=== PATIENT | female | born 1960 ===

== ENCOUNTER 2017-08-20 18:34 | Inpatient (IN) | payer OTHER ==
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
[2017-08-20] MEDS ORDERED: Oxycodone/Acetaminophen 5/325 mg Tab PO STA (18:56)
[2017-08-20 19:39] LABS: BASO # 0.02 K/mm3 (0.0-2.0); BASO % 0.2 % (0.0-3.0); EOS % 0.1 % (1.5-5.0); GRAN # 7.79 (1.4-6.5); GRAN % 69.8 % (50.0-68.0); HEMOGLOBIN 16.3 g/dL (12.0-16.0); LYMPH # 2.2 (1.2-3.4); LYMPH % 19.9 % (22.0-35.0); MEAN CORPUSCULAR HEMOGLOBIN 35.8 pg (25.0-35.0); MEAN CORPUSCULAR HGB CONC 35.8 g/dl (31.0-37.0); MEAN PLATELET VOLUME 9.7 fl (7.0-11.0); MONO # 1.1 (0.1-0.6); RBC 4.55 10^6/uL (3.5-6.1); RED CELL DISTRIBUTION WIDTH 13.7 % (11.5-14.5); WHITE BLOOD COUNT 11.2 10^3/ul (4.5-11.0)
[2017-08-20 20:24] LABS: ALB/GLOB RATIO 1.1 (1.1-1.8); ALBUMIN 3.9 g/dL (3.0-4.8); ALT/SGPT 63 U/L (7-56); AST/SGOT 69 U/L (14-36); BLOOD UREA NITROGEN 13 mg/dL (7-21); CALCIUM 8.8 mg/dL (8.4-10.5); GFR AFRICAN-AMERICAN > 60; GFR NON-AFRICAN AMERICAN > 60
[2017-08-20 20:54] VITALS: BMI 19.9
[2017-08-20 20:56] LABS: PARTIAL THROMBOPLASTIN TIME 28.2 Seconds (25.1-36.5)
[2017-08-20] MEDS ORDERED: Iohexol 350 MG/100 ML VIAL ONE (21:46)
[2017-08-20] MEDS ORDERED: Sodium Chloride 0.9% 500 ML IV STA (22:11)
[2017-08-20 22:55] LABS: TROPONIN I 0.03 ng/mL
--- NOTE | 2017-08-20 23:55 | CT ---
EXAM: CT Angiography Chest With Intravenous Contrast EXAM DATE/TIME: 08/20/2017 9:42 PM CLINICAL HISTORY: 57 years old, female; Signs and symptoms; Tachypnea; Patient HX: SOB; Additional info: +dvt, tachycardic TECHNIQUE: Axial computed tomographic angiography images of the chest with intravenous contrast using pulmonary embolism protocol. All CT scans at this facility use one or more dose reduction techniques, viz.: automated exposure control; ma/kV adjustment per patient size (including targeted exams where dose is matched to indication; i.e. head); or iterative reconstruction technique. MIP reconstructed images were created and reviewed. Coronal and sagittal reformatted images were created and reviewed. CONTRAST: 100 mL of omni administered intravenously. COMPARISON: No relevant prior studies available. FINDINGS: Pulmonary arteries: There are emboli in branches of the right pulmonary artery supplying the upper lobe (series 2 images 89-98) and the lower lobe ( images 140, 157 - 166). There is a small pleural-based area of consolidation in the right lower lung that could be atelectatic although infarction would also be possible given the presence of emboli. No left-sided emboli. Aorta: No acute findings. No thoracic aortic aneurysm. Lungs: Symmetric areas of consolidation are present in the mid lungs probably atelectatic. Small nonspecific faint groundglass opacities are present in the lower lungs. Pleural space: Unremarkable. No significant effusion. No pneumothorax. Heart: Unremarkable. No cardiomegaly. No significant pericardial effusion. No evidence of RV dysfunction. Bones/joints: No acute fracture. No dislocation. Soft tissues: Unremarkable. Lymph nodes: Unremarkable. No enlarged lymph nodes. Adrenals: There is a 1.5 cm hypoattenuating right adrenal lesion probable adenoma. IMPRESSION: Right sided pulmonary emboli as above.
[2017-08-21] MEDS: Heparin25000 units/250ml 1/2NS 25,000 UNITS/250 ML BAG IV SCH (00:39)
[2017-08-21] MEDS ORDERED: Oxycodone/Acetaminophen 5/325 mg Tab PO STA (01:23)
[2017-08-21] MEDS ORDERED: Albuterol-Ipratrop 3 mg / 0.5 (3 ml) UD IH PRN (01:35)
[2017-08-21] MEDS ORDERED: Sodium Chloride 0.9% 500 ML IV STA (01:35)
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
[2017-08-21] MEDS: Sodium Chloride 0.9% 1,000 ML IV SCH (04:07)
[2017-08-21] MEDS: Pantoprazole 40 mg EC Tab PO SCH (05:12)
[2017-08-21 05:47] LABS: BASO # 0.02 K/mm3 (0.0-2.0); BASO % 0.3 % (0.0-3.0); EOS # 0.1 (0.0-0.7); EOS % 1.1 % (1.5-5.0); GRAN # 3.03 (1.4-6.5); GRAN % 41.7 % (50.0-68.0); LYMPH # 3.4 (1.2-3.4); LYMPH % 46.6 % (22.0-35.0); MEAN CORPUSCULAR HEMOGLOBIN 34.6 pg (25.0-35.0); MEAN CORPUSCULAR HGB CONC 34.6 g/dl (31.0-37.0); MEAN PLATELET VOLUME 9.5 fl (7.0-11.0); MONO # 0.8 (0.1-0.6); MONO % 10.3 % (1.0-6.0); RBC 4.05 10^6/uL (3.5-6.1); RED CELL DISTRIBUTION WIDTH 13.6 % (11.5-14.5); WHITE BLOOD COUNT 7.3 10^3/ul (4.5-11.0)
[2017-08-21 06:25] LABS: ARTERIAL BLOOD GAS HCO3 37.3 mmol/L (21-28); ARTERIAL BLOOD GAS HEMOGLOBIN 12.8 g/dL (11.7-17.4); ARTERIAL BLOOD GAS O2 CAPACITY 17.3 mL/dl (16-24); ARTERIAL BLOOD GAS O2 CONTENT 17.2 ML/dl (15-23); ARTERIAL BLOOD GAS O2 SAT 99.3 % (95-98); ARTERIAL BLOOD GAS PCO2 49 mm/Hg (35-45); ARTERIAL BLOOD GAS PH 7.49 (7.35-7.45); ARTERIAL BLOOD GAS TCO2 38.8 mmol.L (22-28)
[2017-08-21 06:31] LABS: ALBUMIN 2.7 g/dL (3.0-4.8); ALT/SGPT 68 U/L (7-56); AST/SGOT 47 U/L (14-36); BLOOD UREA NITROGEN 11 mg/dL (7-21); CALCIUM 7.7 mg/dL (8.4-10.5); GFR AFRICAN-AMERICAN > 60; GFR NON-AFRICAN AMERICAN > 60
[2017-08-21] MEDS: Potassium Chloride 20 mEq ER Tab PO SCH ×2 (07:42→11:30)
--- NOTE | 2017-08-21 10:24 | US ---
HISTORY: Leg pain and swelling. Evaluate for DVT PHYSICIAN(S): Rafael Bhatia MD. TECHNIQUE: Duplex sonography and color-flow Doppler with graded compression were used to evaluate the deep venous systems of both lower extremities. FINDINGS: Occlusive, acute thrombus is noted in the left popliteal and visualized tibial veins. The left femoral vein and left common femoral vein are patent and compressible. There is no sonographic evidence for deep venous thrombosis the visualized segments of the right lower extremity IMPRESSION: Acute occlusive thrombus in the left popliteal and tibial veins
--- NOTE | 2017-08-21 12:41 | PN ---
DATE: 08/21/2017 SUBJECTIVE: The patient is resting in bed with O2 via nasal cannula. No complaints of increased shortness of breath. No cough. No congestion. No chest pain at this time. The patient has no fever, chills, nausea, or vomiting. PHYSICAL EXAMINATION: VITAL SIGNS: Note that her temperature is 98.0, pulse is 92, respirations are 15, and BP is 110/76. SKIN: Warm and dry. HEAD: Atraumatic, normocephalic. EYES: Reactive to light. EAR, NOSE, AND THROAT: Seem to be within normal limits. NECK: Her neck is supple. No JVD. No thyroid enlargement or lymph nodes. HEART: Has a regular rate and rhythm. Normal S1, S2. LUNGS: Reveal rare rhonchi at the bases. ABDOMEN: Soft. Decreased bowel sounds. GENITALIA AND RECTAL: Deferred. MUSCULOSKELETAL: No joint deformities. EXTREMITIES: Reveal trace lower extremity edema. NEUROLOGICALLY: She seemed to be grossly intact. LABORATORY DATA: As far as her laboratories are concerned, her white count is 7.3, hemoglobin is 14.0, hematocrit 40.5 with platelets of 319,000. Her arterial blood gas reveals a pH of 7.49, pCO2 of 49, pO2 of 115. The patient's sodium is 133, potassium 2.4, chloride 92 with a CO2 of 36, BUN of 11, creatinine of 0.6, and a glucose of 85. As far as CT scan of the chest, there is a right-sided pulmonary embolus and there is some atelectasis at the bases. Note that the patient's lower extremities were positive for DVT as well. IMPRESSION: This patient has pulmonary embolus with left lower extremity deep venous thrombosis. The patient has hypokalemia as well as atelectasis, chronic obstructive pulmonary disease. PLAN: We will correct her potassium and follow her labs closely. The patient is getting O2 via nasal cannula. She is on IV heparin. We will follow the PT, PTT, INR very closely. Continue with aggressive pulmonary toilet. The patient is on DuoNeb for appropriate bronchodilatation and is getting IV fluids as well. The patient is on Protonix, and we will continue to treat aggressively along with the other consultants and the primary care doctor. Bobby Hernández MD [facility] # [id number]
[2017-08-21] MEDS: Menthol/Methyl Salicylate Ointment(1 oz) TOP PRN (13:35)
--- NOTE | 2017-08-21 14:51 | CARD ---
APPROVED REPORT EKG Measurement Heart [id number] <Conclusion> Normal sinus rhythm Nonspecific ST and T wave abnormality Prolonged QT Abnormal ECG
[2017-08-21 16:13] LABS: BLOOD UREA NITROGEN 8 mg/dL (7-21); CALCIUM 7.8 mg/dL (8.4-10.5); GFR AFRICAN-AMERICAN > 60; GFR NON-AFRICAN AMERICAN > 60
[2017-08-21 21:09] LABS: PH,URINE 6.5 (4.7-8.0); URINE BILIRUBIN NEGATIVE (NEGATIVE); URINE BLOOD NEGATIVE (NEGATIVE); URINE GLUCOSE (UA) NEGATIVE (NEGATIVE); URINE LEUKOCYTE ESTERASE NEGATIVE Leu/uL (NEGATIVE); URINE NITRATE NEGATIVE (NEGATIVE); URINE PROTEIN NEGATIVE mg/dL (<30 mg/dL); URINE UROBILINOGEN 0.2 E.U./dL (<1 E.U./dL)
[2017-08-21 21:18] LABS: URINE APPEARANCE CLEAR (CLEAR); URINE COLOR YELLOW (YELLOW)
[2017-08-21 22:07] LABS: BLOOD UREA NITROGEN 6 mg/dL (7-21); CALCIUM 7.9 mg/dL (8.4-10.5); GFR AFRICAN-AMERICAN > 60; GFR NON-AFRICAN AMERICAN > 60; MAGNESIUM 1.7 mg/dL (1.7-2.2)
[2017-08-21] MEDS ORDERED: Potassium Chloride 40 mEq/30 ml LIQ UD PO STA (22:20)
[2017-08-21 23:07] LABS: BLOOD UREA NITROGEN 6 mg/dL (7-21); GFR AFRICAN-AMERICAN > 60; GFR NON-AFRICAN AMERICAN > 60
[2017-08-21 23:08] LABS: CALCIUM 7.7 mg/dL (8.4-10.5)
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
[2017-08-22] MEDS: Pantoprazole 40 mg EC Tab PO SCH (05:21)
[2017-08-22] MEDS: Sodium Chloride 0.9% 1,000 ML IV SCH ×3 (05:23→20:45)
--- NOTE | 2017-08-22 05:30 | CP.PCM.PN ---
Subjective - Date & Time of Evaluation Date of Evaluation: 08/21/17 Time of Evaluation: 22:00 - Subjective Subjective: CALLED BY NURSE PT is urinating a lot pt is admitted yesterday for for rt upper and lower lobe PE . had metabolic alkalosis low bp and sever hypokalemia. pt is not on any diuretic . inspite of suplimentation multiple times still k is low pt is on fluids but bp is systolic 87 nl hr , pt ,billirubin is elevated.no other symtoms . Objective - Vital Signs/Intake and Output Vital Signs (last 24 hours): Temp Pulse Resp BP Pulse Ox 98.5 F 82 12 87/47 L 94 L 08/21/17 16:00 08/22/17 03:00 08/21/17 22:00 08/21/17 22:00 08/21/17 22:00 Intake and Output: 08/21/17 08/22/17 18:59 06:59 Intake Total 2688 21 Output Total 500 Balance 2188 21 - Medications Medications: Current Medications Acetaminophen (Tylenol 325mg Tab) 650 mg PO Q6H PRN PRN Reason: Pain, moderate (4-7) Last Admin: 08/21/17 13:36 Dose: 650 mg Albuterol/Ipratropium (Duoneb 3 Mg/0.5 Mg (3 Ml) Ud) 3 ml IH [id number] PRN PRN Reason: Shortness of Breath Camphor/Menthol (Bengay) 0 gm TOP QID PRN PRN Reason: Pain, Mild (1-3) Last Admin: 08/21/17 13:35 Dose: 1 appl Heparin Sodium/Sodium Chloride (Heparin 72489 Units/250ml 1/2 Normal Saline) 25 ,000 units in 250 mls @ 9.194 mls/hr IV .Q24H MELY; 18 UNITS/KG/HR PRN Reason: Protocol Last Titration: 08/21/17 20:55 Dose: 14 units/kg/hr, 7.151 mls/hr Sodium Chloride (Sodium Chloride 0.9%) 1,000 mls @ 100 mls/hr IV .Q10H MELY Last Admin: 08/21/17 04:07 Dose: 100 mls/hr Pantoprazole Sodium (Protonix Ec Tab) 40 mg PO 0600 MELY Last Admin: 08/21/17 05:12 Dose: 40 mg Thiamine HCl (Vitamin B1 Tab) 50 mg PO DAILY MELY Last Admin: 08/21/17 10:00 Dose: 50 mg - Labs Labs: 08/21/17 05:15 08/21/17 22:35 PT 11.0 SECONDS (9.4-12.5) 08/20/17 19:15 INR 1.00 (0.93-1.08) 08/20/17 19:15 APTT 57.5 Seconds (25.1-36.5) H 08/22/17 03:10 - Constitutional Appears: No Acute Distress - Eye Exam Eye Exam: Normal appearance Pupil Exam: NORMAL ACCOMODATION - Neck Exam Neck Exam: Full ROM - Respiratory Exam Respiratory Exam: Clear to Ausculation Bilateral, NORMAL BREATHING PATTERN - Cardiovascular Exam Cardiovascular Exam: RRR, +S1, +S2 - GI/Abdominal Exam GI & Abdominal Exam: Normal Bowel Sounds - Rectal Exam Rectal Exam: Deferred - Extremities Exam Extremities Exam: Full ROM - Neurological Exam Neurological Exam: Awake, CN II-XII Intact, Oriented x3 - Psychiatric Exam Psychiatric exam: Normal Affect - Skin Skin Exam: Normal Color Assessment and Plan - Assessment and Plan (Free Text) Assessment: acute pulmonary embolism. hypokalemia +metabolic alkalosis amd low bp / ?barttter syndrome . poly urea low uine speciphic gravity /? hypokalemia induced nephrogenic diabetes insipidus. increased billirubin secondry to PE. Plan: continue heparine. urine and seum osmolality . urine volume . urine calcium and electrolytes . plasma ADH level.
[2017-08-22] MEDS: Menthol/Methyl Salicylate Ointment(1 oz) TOP PRN (05:31)
[2017-08-22 06:14] LABS: ARTERIAL BLOOD GAS HCO3 32.8 mmol/L (21-28); ARTERIAL BLOOD GAS HEMOGLOBIN 12.5 g/dL (11.7-17.4); ARTERIAL BLOOD GAS O2 CONTENT 16.6 ML/dl (15-23); ARTERIAL BLOOD GAS O2 SAT 97.5 % (95-98); ARTERIAL BLOOD GAS PCO2 42 mm/Hg (35-45); ARTERIAL BLOOD GAS TCO2 34.1 mmol.L (22-28)
[2017-08-22 06:27] LABS: BASO # 0.02 K/mm3 (0.0-2.0); BASO % 0.4 % (0.0-3.0); EOS % 0.7 % (1.5-5.0); GRAN # 2.88 (1.4-6.5); GRAN % 50.5 % (50.0-68.0); HEMOGLOBIN 13.1 g/dL (12.0-16.0); LYMPH # 2.2 (1.2-3.4); LYMPH % 39.3 % (22.0-35.0); MEAN CELL VOLUME 102.4 fl (80.0-105.0); MEAN CORPUSCULAR HEMOGLOBIN 34.7 pg (25.0-35.0); MEAN CORPUSCULAR HGB CONC 33.9 g/dl (31.0-37.0); MEAN PLATELET VOLUME 10.9 fl (7.0-11.0); MONO # 0.5 (0.1-0.6); MONO % 9.1 % (1.0-6.0); RBC 3.77 10^6/uL (3.5-6.1); RED CELL DISTRIBUTION WIDTH 13.9 % (11.5-14.5); WHITE BLOOD COUNT 5.7 10^3/ul (4.5-11.0)
[2017-08-22 06:55] LABS: ALBUMIN 2.5 g/dL (3.0-4.8); ALT/SGPT 57 U/L (7-56); AST/SGOT 34 U/L (14-36); BLOOD UREA NITROGEN 4 mg/dL (7-21); GFR AFRICAN-AMERICAN > 60; GFR NON-AFRICAN AMERICAN > 60
[2017-08-22 07:13] LABS: T4 5.8 ug/dL (5.5-11.0)
[2017-08-22] MEDS ORDERED: Potassium Chloride 20 mEq ER Tab PO ONE (09:47)
[2017-08-22] MEDS: Heparin25000 units/250ml 1/2NS 25,000 UNITS/250 ML BAG IV SCH (10:33)
--- NOTE | 2017-08-22 11:15 | PN ---
DATE: 08/22/2017 ACCOUNT RESOLUTION EXPERT NOTE SUBJECTIVE: The patient is resting in bed, actually sitting on the side of the bed getting ready to eat breakfast. No complaints of shortness of breath, cough, wheezing or chest congestion. O2 saturation is good on room air. The patient has no fever, chills, nausea or vomiting. No abdominal pain. No diarrhea. PHYSICAL EXAMINATION: VITAL SIGNS: Her temperature is 98.4, her pulse is 82, respirations are 12, and BP is 87/47. O2 saturation is 94% on room air. SKIN: Warm and dry. HEENT: Head is atraumatic, normocephalic. Eyes are reactive to light. Ears, nose and throat seemed to be within normal limits. NECK: Supple. No JVD. No thyroid enlargement or lymph nodes. HEART: Has regular rate and rhythm. Normal S1 and S2. LUNGS: Reveal good breath sounds bilaterally. ABDOMEN: Soft and nontender. Normal bowel sounds. No organomegaly noted. GENITALIA AND RECTAL: Deferred. MUSCULOSKELETAL: No joint deformities. EXTREMITIES: Reveal trace lower extremity edema. NEUROLOGIC: She seemed to be grossly intact. LABORATORY DATA: As far as her laboratories are concerned, her sodium is 141, potassium is 3.4, chloride is 105, CO2 of 29 with BUN of 4, creatinine is 0.5, and glucose of 70. Her white count is 5.7, hemoglobin is 13.1, and hematocrit is 38.6 with platelets of 352,000. The patient's arterial blood gas is 7.51, pCO2 of 42, and pO2 of 71. She has PTT of 57.5 this morning. IMPRESSION: This patient has pulmonary embolus with left lower extremity deep vein thrombosis. She has hypokalemia as well as some atelectasis and history of chronic obstructive pulmonary disease. It is also noted that she does have mild decreased blood pressure and some elevation in her BNP, note that there may be a component of congestive failure. PLAN: We will continue with IV heparin and follow her PT, PTT and INR. The patient is getting DuoNebs as far as bronchodilator and Protonix. We will continue with the IV fluids and continue to follow closely. We will continue to replace her potassium and treat aggressively along with the other consultants and the primary care doctor. Bobby Hernández MD [facility] # [id number]
--- NOTE | 2017-08-22 11:54 | US ---
HISTORY: Elevated LFTs. COMPARISON: No prior study available for comparison however correlation made with CTA of the chest 08/20/2017 which incompletely imaged the upper abdomen. TECHNIQUE: Sonographic evaluation of the right upper quadrant of the abdomen. FINDINGS: LIVER: The liver exhibits normal size measuring approximately 16.3 cm in CC dimension. Liver demonstrates smooth contour and normal echotexture. No obvious hepatic masses, collections or significant intrahepatic biliary ductal dilatation. No ascites. Portal vein demonstrates hepatopetal flow. GALLBLADDER: Gallbladder is physiologically distended. No evidence of intraluminal no calculi. Intraluminal gallbladder sludge. The gallbladder wall is slightly thickened at 5.2 cm which may be in part due to incomplete distension however mild gallbladder wall edema not excluded. No sonographic Tsai sign. COMMON BILE DUCT: Common bile duct measures approximately 5.6 mm. . No stones. No dilatation. PANCREAS: Unremarkable as visualized. No mass. No ductal dilatation. RIGHT KIDNEY: Right kidney measures approximately 9.8 x 4.4 x 4.9 cm. . Normal echogenicity. No calculus, mass, or hydronephrosis. AORTA: No aneurysmal dilatation. IVC: Unremarkable. OTHER FINDINGS: None . IMPRESSION: Intraluminal gallbladder sludge with the small amount pericholecystic fluid. No sonographic Tsai sign. Gallbladder wall is thickened which could be in part due to incomplete distention however mild edema not excluded.
--- NOTE | 2017-08-23 00:38 | PN ---
DATE: 08/22/2017 CRITICAL CARE PROGRESS NOTE SUBJECTIVE: This 57-year-old female was examined in critical care unit bed #1, present were her family including her sister and mother. The patient is sitting in bed, alert; denying chest pain, fever, chills, or shortness of breath. She remains on IV heparin, IV saline, and is receiving oral potassium replacement in the setting of hypokalemia and metabolic alkalosis. Given her admission presentation and the patient's denial of taking any diuretics or any history of nausea, vomiting or diarrhea, possible explanation could be Bartter's syndrome. PHYSICAL EXAMINATION: VITAL SIGNS: The patient on physical exam is in a normal sinus rhythm, temperature is 98.4, respirations are 12, pulse 88 and blood pressure was 106/70. Pulse ox was 97% room air. HEAD: Normocephalic, atraumatic. EYES: No icterus. EARS: Clear. THROAT: Noninjected. NECK: Supple. HEART: Regular S1, S2. LUNGS: Clear. ABDOMEN: Soft. EXTREMITIES: No edema. SKIN: Without rash. NEUROLOGICAL: Intact. PSYCHOLOGICAL: Alert. VASCULAR: Legs warm to touch. There was no edema of either lower extremity. No Homans sign. LABORATORY DATA: White count 5700, hemoglobin 13.1, hematocrit 38.6, platelets 252,000. PTT was 57.5. Chemistry; D-dimer was elevated at 1700. Sodium 141, K 3.4, chloride 105, bicarb 29, BUN 4, creatinine 0.5, random blood sugar 70. Bilirubin 0.9, AST 34; ALT 57, normal 56 or less; and alk phos 98. TSH normal 3.84. T4 normal 5.8. Urinalysis unremarkable. The gallbladder and liver ultrasound was reviewed; the liver is normal in size. There were no obvious hepatic masses. The gallbladder showed no calculi. There was no Tsai's sign appreciated. Gallbladder sludge was noted as well. The patient's EKG was reviewed. It shows normal sinus rhythm. IMPRESSION: This is a 57-year-old female admitted with left leg deep vein thrombosis, right lung pulmonary embolism, and additional issues of hypokalemia, metabolic alkalosis raising suspicion for Bartter's syndrome. PLAN: As discussed with the patient, family, nursing and Dr. Hernández from pulmonary is to await hematological evaluation by Dr. Swapnil Black. I have ordered hypercoagulable state factors including antiphospholipid antibody panel, antithrombin III activity level, factor V Leiden mutation, protein C activity, protein S activity while the patient continues on IV heparin. The patient will be started on spironolactone 25 mg p.o. b.i.d., and be given potassium supplementation to correct her hypokalemia. She continues on thiamine 50 mg p.o. daily, 0.9 saline at 100 mL/hour, Protonix 40 mg p.o. daily, IV heparin protocol. Hepatitis A, B, C serologies are pending. She will have a basic metabolic panel repeated in the a.m. and additional testing and diagnostic studies as well as adjustment of medication will be based on clinical progress. The patient will need a minimum of 3 to 6 months of treatment for her DVT and pulmonary embolism and choice of agent will be discussed with petroleum terminal plant operator and Dr. Black from Hematology. All of the above was reviewed in detail with the patient, family, nursing, Dr. Hernández and co-consultants. All questions were answered. Kena Lazo MD MTDD
[2017-08-23] MEDS: Menthol/Methyl Salicylate Ointment(1 oz) TOP PRN (01:05)
[2017-08-23] MEDS: Pantoprazole 40 mg EC Tab PO SCH (05:33)
[2017-08-23] MEDS: Sodium Chloride 0.9% 1,000 ML IV SCH ×2 (05:37→17:51)
[2017-08-23 06:19] LABS: INR 0.96 (0.93-1.08); PARTIAL THROMBOPLASTIN TIME 40.6 Seconds (25.1-36.5); PROTHROMBIN TIME 10.5 SECONDS (9.4-12.5)
[2017-08-23 06:23] LABS: BASO # 0.02 K/mm3 (0.0-2.0); BASO % 0.3 % (0.0-3.0); EOS % 0.7 % (1.5-5.0); GRAN # 2.95 (1.4-6.5); GRAN % 48.6 % (50.0-68.0); HEMOGLOBIN 13.4 g/dL (12.0-16.0); LYMPH # 2.6 (1.2-3.4); LYMPH % 42.1 % (22.0-35.0); MEAN CELL VOLUME 103.1 fl (80.0-105.0); MEAN CORPUSCULAR HEMOGLOBIN 34.8 pg (25.0-35.0); MEAN CORPUSCULAR HGB CONC 33.8 g/dl (31.0-37.0); MEAN PLATELET VOLUME 10.5 fl (7.0-11.0); MONO # 0.5 (0.1-0.6); MONO % 8.3 % (1.0-6.0); RBC 3.85 10^6/uL (3.5-6.1); RED CELL DISTRIBUTION WIDTH 14.4 % (11.5-14.5); WHITE BLOOD COUNT 6.1 10^3/ul (4.5-11.0)
[2017-08-23 06:33] LABS: ALB/GLOB RATIO 0.9 (1.1-1.8); ALBUMIN 2.6 g/dL (3.0-4.8); ALT/SGPT 46 U/L (7-56); AST/SGOT 27 U/L (14-36); BLOOD UREA NITROGEN 2 mg/dL (7-21); CALCIUM 8.5 mg/dL (8.4-10.5); GFR AFRICAN-AMERICAN > 60; GFR NON-AFRICAN AMERICAN > 60
--- NOTE | 2017-08-23 08:47 | CP.PCM.PN ---
Subjective - Date & Time of Evaluation Date of Evaluation: 08/23/17 Time of Evaluation: 07:15 - Subjective Subjective: Patient seen and examined, reports to be feeling better. Denies fever, chills, cough, chest pain, sob. Reports bilateral lower ext pain. Objective - Vital Signs/Intake and Output Vital Signs (last 24 hours): Temp Pulse Resp BP Pulse Ox 98.1 F 79 13 114/70 100 08/22/17 16:00 08/23/17 07:30 08/23/17 07:30 08/23/17 07:30 08/23/17 07:30 Intake and Output: 08/23/17 08/23/17 06:59 18:59 Intake Total 1635 Output Total 1050 Balance 585 - Medications Medications: Current Medications Acetaminophen (Tylenol 325mg Tab) 650 mg PO Q6H PRN PRN Reason: Pain, moderate (4-7) Last Admin: 08/23/17 01:04 Dose: 650 mg Albuterol/Ipratropium (Duoneb 3 Mg/0.5 Mg (3 Ml) Ud) 3 ml IH [id number] PRN PRN Reason: Shortness of Breath Camphor/Menthol (Bengay) 0 gm TOP QID PRN PRN Reason: Pain, Mild (1-3) Last Admin: 08/23/17 01:05 Dose: 1 appl Heparin Sodium/Sodium Chloride (Heparin 58006 Units/250ml 1/2 Normal Saline) 25 ,000 units in 250 mls @ 9.194 mls/hr IV .Q24H MELY; 18 UNITS/KG/HR PRN Reason: Protocol Last Admin: 08/22/17 10:33 Dose: 14 units/kg/hr, 7.151 mls/hr Sodium Chloride (Sodium Chloride 0.9%) 1,000 mls @ 100 mls/hr IV .Q10H MELY Last Admin: 08/23/17 05:37 Dose: 100 mls/hr Pantoprazole Sodium (Protonix Ec Tab) 40 mg PO 0600 [facility] Last Admin: 08/23/17 05:33 Dose: 40 mg Spironolactone (Aldactone) 25 mg PO BID [facility] Last Admin: 08/22/17 16:59 Dose: 25 mg Thiamine HCl (Vitamin B1 Tab) 50 mg PO DAILY [facility] Last Admin: 08/22/17 10:06 Dose: 50 mg - Labs Labs: 08/23/17 05:10 08/23/17 05:00 PT 10.5 SECONDS (9.4-12.5) 08/23/17 05:00 INR 0.96 (0.93-1.08) 08/23/17 05:00 APTT 40.6 Seconds (25.1-36.5) H 08/23/17 05:00 - Constitutional Appears: Well, Non-toxic, No Acute Distress - Eye Exam Eye Exam: Normal appearance - ENT Exam ENT Exam: Mucous Membranes Moist - Neck Exam Neck Exam: Full ROM - Respiratory Exam Respiratory Exam: Clear to Ausculation Bilateral, NORMAL BREATHING PATTERN - Cardiovascular Exam Cardiovascular Exam: REGULAR RHYTHM, +S1, +S2 - GI/Abdominal Exam GI & Abdominal Exam: Soft, Normal Bowel Sounds - Extremities Exam Extremities Exam: Full ROM - Neurological Exam Neurological Exam: Awake, Oriented x3 Assessment and Plan - Assessment and Plan (Free Text) Assessment: 57yo female a/w DVT/PE Asthma DVT/PE Abnormal LFTs - currently afebrile, HD stable, comfortable, sat 99%, on heparin drip - RUQ with no acute pathological findings - Hep panel pending - HH stable, LFTs downtrending Recommend: - supp o2 as needed - follow up cultures - BP control - IV hydration - Duonebs PRN - cont with heparin drip, with bridge to either Coumadin, or start NOAC - GI ppx - DVT ppx, Heparin drip - OOB to chair - Reg diet - Pain control - follow up ECHO - Stable, transfer to telemetry
[2017-08-23] MEDS: Heparin25000 units/250ml 1/2NS 25,000 UNITS/250 ML BAG IV SCH (17:52)
--- NOTE | 2017-08-23 21:10 | PN ---
DATE: 08/23/2017 CRITICAL CARE PROGRESS NOTE SUBJECTIVE: This 57-year-old female was examined in critical care unit bed 1. Her case was reviewed in detail with herself, nursing and Dr. Ender Bacon, medical doctor, travel journalist MD. The patient remains at bed rest. She denies any fever, chills, chest pain, shortness of breath, hematemesis, melena or bruising. She is on IV heparin protocol. Laboratory sent for hypercoagulable state remain pending at present. The patient had her last dose of potassium yesterday. Of note, today's potassium level is normal and she is tolerating low-dose spironolactone at present. She remains on an IV heparin drip. Liver function testing has return to normal and sonographic review of her liver shows no evidence of hepatic mass or liver disease. The patient will be started on oral Coumadin. PHYSICAL EXAMINATION: VITAL SIGNS: Shows her security monitor, normal sinus rhythm. Temperature 98.4, respirations 18, pulse 90, blood pressure 95/61, pulse ox 100% on room air. HEENT: Head: Normocephalic, atraumatic. Eyes: No icterus. Ears: Clear. Throat: Noninjected. NECK: Supple. HEART: Regular S1, S2. LUNGS: Clear. ABDOMEN: Soft. EXTREMITIES: No clubbing, no cyanosis, no edema. SKIN: Without rash. NEUROLOGICAL: Intact. PSYCHOLOGICAL: Alert. VASCULAR: Legs warm to touch. No Homans' sign present in either leg. LABORATORY DATA: Sodium 139, K 4.3, chloride 109, bicarb 27, BUN 2, creatinine 0.5, random blood sugar 79. Bilirubin 0.6, AST 27, ALT 46, alk phos 95. T4 normal 5.8. TSH normal 3.84. PT/INR 0.96, PTT 45.9. White count 6100, hemoglobin 13.4, hematocrit 39.7, platelets 329,000. Urinalysis unremarkable. Liver ultrasound unremarkable. Chest CT, right pulmonary emboli. Venous Doppler ultrasounds, left leg DVT of left tibial and popliteal veins. IMPRESSION: A 57-year-old female with left leg deep venous thrombosis, right pulmonary emboli, deconditioning, history of social alcohol and admission with elevated liver function testing, probably on the basis of alcohol ingestion, now resolved with admission labs showing hypokalemia, metabolic alkalosis in a patient with asymptomatic hypotension. PLAN: As discussed with the patient, nursing, intensive care physician is to continue cardiac monitoring, IV fluids, no further potassium supplementation today and low-dose spironolactone therapy. She continues on IV heparin. She will be started on oral Coumadin. She will have daily PT/INR levels with warfarin being held for any INR level greater than 3. We will continuing IV heparin protocol for pulmonary emboli. She will have a CBC repeated in the a.m. A basic metabolic panel has been ordered and her hepatitis serology is pending. Studies for antiphospholipid antibody, antithrombin III activity, factor V Leiden mutation and protein C and protein X activity remain pending. The patient will be scheduled for physical therapy, continuing on heart-healthy diet. She is wearing antiembolism stockings, has an order for nasal O2 p.r.n. and will continue on thiamine, IV sodium chloride, spironolactone, Coumadin, dual nebulizer, IV heparin protocol and Protonix. Additional testings and interventions will be entertained based on her clinical progress and above results. All of the above was discussed in detail in critical care with the patient at bedside. All questions were answered. Kena Lazo MD MTDD
[2017-08-24] MEDS: Sodium Chloride 0.9% 1,000 ML IV SCH ×2 (01:10→17:52)
[2017-08-24 04:48] LABS: HEMOGLOBIN 14.1 g/dL (12.0-16.0); MEAN CELL VOLUME 103.7 fl (80.0-105.0); MEAN CORPUSCULAR HEMOGLOBIN 34.9 pg (25.0-35.0); MEAN CORPUSCULAR HGB CONC 33.7 g/dl (31.0-37.0); MEAN PLATELET VOLUME 10.5 fl (7.0-11.0); RBC 4.04 10^6/uL (3.5-6.1); RED CELL DISTRIBUTION WIDTH 14.6 % (11.5-14.5); WHITE BLOOD COUNT 6.6 10^3/ul (4.5-11.0)
[2017-08-24 04:56] LABS: INR 0.95 (0.93-1.08); PARTIAL THROMBOPLASTIN TIME 68.6 Seconds (25.1-36.5); PROTHROMBIN TIME 10.3 SECONDS (9.4-12.5)
[2017-08-24 05:06] LABS: BLOOD UREA NITROGEN 6 mg/dL (7-21); GFR AFRICAN-AMERICAN > 60; GFR NON-AFRICAN AMERICAN > 60
[2017-08-24] MEDS: Pantoprazole 40 mg EC Tab PO SCH (05:24)
[2017-08-24 12:44] LABS: HEPATITIS B SURFACE AG NEGATIVE (NEGATIVE)
[2017-08-24 12:49] LABS: HEPATITIS A IGM NEGATIVE (NEGATIVE); HEPATITIS B CORE AB Negative (NEGATIVE)
[2017-08-24 13:45] LABS: HEPATITIS C ANTIBODY Negative (NEGATIVE)
[2017-08-24] MEDS: Heparin25000 units/250ml 1/2NS 25,000 UNITS/250 ML BAG IV SCH (19:54)
[2017-08-25] MEDS: Sodium Chloride 0.9% 1,000 ML IV SCH ×3 (03:41→20:34)
[2017-08-25 04:50] LABS: B2 GLYCOPROTEIN I AB(IGA) <9 SAU (<=20); B2 GLYCOPROTEIN I AB(IGG) <9 SGU (<=20); B2 GLYCOPROTEIN I AB(IGM) <9 SMU (<=20)
[2017-08-25 05:10] LABS: PHOSPHATIDYLSERINE AB IGA <20 U/mL (<20); PHOSPHATIDYLSERINE AB IGG <10 U/mL (<10); PHOSPHATIDYLSERINE AB IGM <25 U/mL (<25)
[2017-08-25] MEDS: Pantoprazole 40 mg EC Tab PO SCH (05:43)
[2017-08-25 06:51] LABS: BLOOD UREA NITROGEN 7 mg/dL (7-21); CALCIUM 9.1 mg/dL (8.4-10.5); GFR AFRICAN-AMERICAN > 60; GFR NON-AFRICAN AMERICAN > 60
[2017-08-25 07:34] LABS: INR 1.17 (0.93-1.08); PROTHROMBIN TIME 12.9 SECONDS (9.4-12.5)
--- NOTE | 2017-08-25 08:36 | PN ---
DATE: 08/24/2017 SUBJECTIVE: A 57-year-old female who was examined at her bedside. Her case was reviewed in detail with herself and her nurse, Krystal Madsen. The patient remains on an IV heparin drip in the setting of a left leg DVT and right pulmonary embolism. She is being converted to oral Coumadin. She remains in a normal sinus rhythm on the phototypesetting equipment monitor. She denies fever, chills, chest pain, shortness of breath, hematemesis, melena, hematuria, or hemoptysis. PHYSICAL EXAMINATION: VITAL SIGNS: Temperature 98.5, respirations 20, pulse 80, blood pressure 104/54, pulse ox 98% room air. HEENT: Head: Normocephalic, atraumatic. Eyes: No icterus. Ears: Clear. Throat: Non-injected. NECK: Supple. HEART: Regular, S1, S2. LUNGS: Clear. ABDOMEN: Soft. EXTREMITIES: No edema. SKIN: Without rash. NEUROLOGICAL: Intact. PSYCHOLOGICAL: Alert. VASCULAR: Legs warm to touch. LABORATORY DATA: White count 6600, hemoglobin 14.1, hematocrit 41.9, platelets 325,000. PT/INR is 0.95, PTT 68.6. Sodium 140, K 4.5, chloride 110, bicarb 27, BUN 6, creatinine 0.6, random blood sugar 78. All liver function testing is now normal including bilirubin 0.6, AST 27, ALT 46, and alk phos 95. Hepatitis A, B, C serology is negative. IMPRESSION: A 57-year-old female with left leg deep venous thrombosis; right pulmonary embolism, on intravenous heparin, being converted to oral Coumadin; now with therapeutic potassium and sodium levels. PLAN: Plan will be to continue this patient on the cardiac mahoney. She continues on IV heparin protocol, monitoring PTT levels and adjusting accordingly, Coumadin will continue at 5 mg p.o. daily, IV saline, dual nebulizer PRN. shortness of breath, Protonix 40 mg p.o. daily. She continues on a regular diet. She is ordered for fall precautions and ambulation with physical therapy. Her coagulation profile including antiphospholipid antibody, antithrombin III, factor V, protein C and protein S activity, remains pending; and ultimate plan will be for discharge to home with outpatient followup once medically stable. All of the above was reviewed in detail with the patient and nursing. The patient will continue on the cardiac mahoney for now. Kena Lazo MD [facility]
--- NOTE | 2017-08-25 12:24 | CON ---
DATE: HEMATOLOGY CONSULTATION HISTORY OF PRESENT ILLNESS: This is a 57-year-old woman with DVT and pulmonary embolism. PHYSICAL EXAMINATION: SKIN: No petechiae. No bruises. HEENT: Anicteric. NODES: Nonpalpable in axillary, cervical, supraclavicular or inguinal regions. LUNGS: Clear at present. No vertebral tenderness. HEART: S1 and S2. BREASTS: Shows no mass, no discharge, no dimpling. ABDOMEN: Shows no liver, no spleen, no tenderness, no rebound. EXTREMITIES: At present, the patient has Dilia's sign negative. No edema. EXPLORATION GEOLOGIST: No focal findings. PLAN: I told the patient that she just will be put on Coumadin and she is relatively stable. She is lying flat in bed, not short of breath. I told her that she has to be put on the Coumadin pills for the next 6 to 9 months and she will need at least in the beginning weekly PT, PTT to determine the dosage of the Coumadin. I emphasized that it could be very dangerous pill if it is too high or too low level in her blood, so she recognized she will see her trademark attorney to followed up by this when she is discharged. Swapnil Black MD
--- NOTE | 2017-08-25 13:04 | RAD ---
PROCEDURE: Bilateral Feet Radiographs. HISTORY: foot pain COMPARISON: None. FINDINGS: BONES: Right Foot: Normal. No fracture. Left Foot: Normal. No fracture. JOINTS: Right Foot: Normal. No osteoarthritis. Left Foot: Normal. No osteoarthritis. SOFT TISSUES: Right Foot: Normal. Left Foot: Normal. OTHER FINDINGS: None. IMPRESSION: Normal radiographs of the feet.
--- NOTE | 2017-08-25 18:44 | PN ---
DATE: 08/25/2017 SUBJECTIVE: This 57-year-old female was examined on the cardiac mahoney. Her case was reviewed in detail with herself and nursing, Felicia Zheng, registered nurse. The patient remains alert, oriented and is tolerating IV heparin while bridging with p.o. Coumadin. Today, there have been no reports of fever, chills, chest pain, shortness of breath, hemoptysis, hematemesis, melena or hematuria. However, the patient does complain of bilateral foot pain upon ambulation. The patient is a former smoker, social drinker and denies any trauma to feet or spine. 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 Pulse ox 99% room air. HEENT: Head is normocephalic, atraumatic. Eyes: No icterus. Ears: Clear. Throat: Noninjected. NECK: Supple. HEART: Regular S1, S2. LUNGS: Clear. ABDOMEN: Soft. EXTREMITIES: No edema. SKIN: Without rash. NEUROLOGICAL: Intact. PSYCHOLOGICAL: Alert. VASCULAR: Legs warm to touch. Feet warm to touch with pedal pulses palpable. LABORATORY DATA: White count 6600, hemoglobin 14.1, hematocrit 41.9, platelets 325,000. PT/INR 1.17, PTT 81. Sodium 139, K 4.2, chloride 110, bicarb 25, BUN 7, creatinine 0.6, random blood sugar 86. Hepatitis A, B, C serology is negative. IMPRESSION: This is a 57-year-old female with left leg tibial and popliteal DVT, right lung pulmonary embolism with painful feet in the absence of trauma, now with IV heparin protocol and subtherapeutic PT/INR on oral Coumadin. PLAN: As discussed with the patient will be to stop her spirolactone while monitoring her basic metabolic panel and potassium levels. She continues on thiamine 50 mg p.o. daily, 0.9 saline at 100 mL/hour, IV heparin protocol and Coumadin 5 mg p.o. daily. She continues on GI prophylaxis with Pepcid 20 mg p.o. at bedtime. I will order bilateral foot x-rays as well as arterial Dopplers of both lower extremities. She will have a repeat basic metabolic panel and INR in the a.m. as well as daily PTT levels for IV heparin protocol. She is instructed to have Physical Therapy for ambulation and all of the above was reviewed in detail with the patient, nursing. All questions were answered. Kena Lazo MD [facility]
[2017-08-25] MEDS: Menthol/Methyl Salicylate Ointment(1 oz) TOP PRN (20:35)
[2017-08-25] MEDS: Heparin25000 units/250ml 1/2NS 25,000 UNITS/250 ML BAG IV SCH ×4 (20:58→23:23)
[2017-08-25 21:11] LABS: CARDIOLIPIN AB (IGA) <11 APL (<=11); CARDIOLIPIN AB (IGG) <14 GPL (<=14); CARDIOLIPIN AB (IGM) <12 MPL (<=12)
--- NOTE | 2017-08-25 22:36 | CP.PCM.PN ---
Subjective - Date & Time of Evaluation Date of Evaluation: 08/25/17 Time of Evaluation: 22:35 - Subjective Subjective: Patient was seen because she complained of pain in both feet and it was not relieved with tylenol. Has no other complaints. Medical record was reviewed. This 57 year old white woman was admitted left leg DVT and right lung pulmonary embolism. Has PMH of degenerative arthritis, smoking , alcohol. Objective - Vital Signs/Intake and Output Vital Signs (last 24 hours): Temp Pulse Resp BP Pulse Ox 98.5 F 90 20 93/58 L 100 08/25/17 16:00 08/25/17 18:00 08/25/17 16:00 08/25/17 16:00 08/25/17 16:00 Intake and Output: 08/25/17 08/26/17 18:59 06:59 Intake Total 50 Balance 50 - Medications Medications: Current Medications Acetaminophen (Tylenol 325mg Tab) 650 mg PO Q6H PRN PRN Reason: Pain, moderate (4-7) Last Admin: 08/25/17 20:29 Dose: 650 mg Albuterol/Ipratropium (Duoneb 3 Mg/0.5 Mg (3 Ml) Ud) 3 ml IH [id number] PRN PRN Reason: Shortness of Breath Camphor/Menthol (Bengay) 0 gm TOP QID PRN PRN Reason: Pain, Mild (1-3) Last Admin: 08/25/17 20:35 Dose: 1 appl Famotidine (Pepcid) 20 mg PO HS MELY Last Admin: 08/25/17 22:24 Dose: 20 mg Heparin Sodium/Sodium Chloride (Heparin 69919 Units/250ml 1/2 Normal Saline) 25 ,000 units in 250 mls @ 9.194 mls/hr IV .Q24H MELY; 18 UNITS/KG/HR PRN Reason: Protocol Last Admin: 08/25/17 21:02 Dose: Not Given Sodium Chloride (Sodium Chloride 0.9%) 1,000 mls @ 100 mls/hr IV .Q10H MELY Last Admin: 08/25/17 20:34 Dose: Not Given Ibuprofen (Motrin Tab) 400 mg PO STAT STA Stop: 08/25/17 22:35 Thiamine HCl (Vitamin B1 Tab) 50 mg PO DAILY [facility] Last Admin: 08/25/17 10:22 Dose: 50 mg Warfarin Sodium (Coumadin) 5 mg PO 1800 MELY PRN Reason: Protocol Last Admin: 08/25/17 17:29 Dose: 5 mg - Labs Labs: 08/24/17 04:10 08/25/17 06:10 PT 12.9 SECONDS (9.4-12.5) H 08/25/17 06:10 INR 1.17 (0.93-1.08) H 08/25/17 06:10 APTT 65.1 Seconds (25.1-36.5) H 08/25/17 20:52 Micro Results 08/21/17 03:40 Nose MRSA Culture (Admit) - Final MRSA NOT DETECTED Most Recent Lab Values WBC 6.6 10^3/ul (4.5-11.0) 08/24/17 04:10 RBC 4.04 10^6/uL (3.5-6.1) 08/24/17 04:10 Hgb 14.1 g/dL (12.0-16.0) 08/24/17 04:10 Hct 41.9 % (36.0-48.0) 08/24/17 04:10 MCV 103.7 fl (80.0-105.0) 08/24/17 04:10 MCH 34.9 pg (25.0-35.0) 08/24/17 04:10 MCHC 33.7 g/dl (31.0-37.0) 08/24/17 04:10 RDW 14.6 % (11.5-14.5) H 08/24/17 04:10 Plt Count 325 10^3/uL (120.0-450.0) 08/24/17 04:10 MPV 10.5 fl (7.0-11.0) 08/24/17 04:10 Gran % 48.6 % (50.0-68.0) L 08/23/17 05:10 Lymph % (Auto) 42.1 % (22.0-35.0) H 08/23/17 05:10 [place] % (Auto) 8.3 % (1.0-6.0) H 08/23/17 05:10 Eos % (Auto) 0.7 % (1.5-5.0) L 08/23/17 05:10 Baso % (Auto) 0.3 % (0.0-3.0) 08/23/17 05:10 Gran # 2.95 (1.4-6.5) 08/23/17 05:10 Lymph # 2.6 (1.2-3.4) 08/23/17 05:10 [place] # 0.5 (0.1-0.6) 08/23/17 05:10 Eos # 0.0 (0.0-0.7) 08/23/17 05:10 Baso # 0.02 K/mm3 (0.0-2.0) 08/23/17 05:10 PT 12.9 SECONDS (9.4-12.5) H 08/25/17 06:10 INR 1.17 (0.93-1.08) H 08/25/17 06:10 APTT 65.1 Seconds (25.1-36.5) H 08/25/17 20:52 D-Dimer, Quantitative 1700 ng/mL (0-243) H 08/20/17 19:30 Protein S Activity 126 % (60-140) 08/22/17 06:15 pCO2 42 mm/Hg (35-45) 08/22/17 05:00 pO2 71.0 mm/Hg (80-100) L 08/22/17 05:00 HCO3 32.8 mmol/L (21-28) H 08/22/17 05:00 ABG pH 7.50 (7.35-7.45) H 08/22/17 05:00 ABG Total CO2 34.1 mmol.L (22-28) H 08/22/17 05:00 ABG O2 Saturation 97.5 % (95-98) 08/22/17 05:00 ABG O2 Content 16.6 ML/dl (15-23) 08/22/17 05:00 ABG Base Excess 8.7 mmol/L (-2.0-3.0) H 08/22/17 05:00 ABG Hemoglobin 12.5 g/dL (11.7-17.4) 08/22/17 05:00 ABG Carboxyhemoglobin 2.6 % (0.5-1.5) H 08/22/17 05:00 POC ABG HHb (Measured) 2.4 % (0-5) 08/22/17 05:00 ABG Methemoglobin 0.8 % (0.0-3.0) 08/22/17 05:00 ABG O2 Capacity 17.0 mL/dl (16-24) 08/22/17 05:00 Hgb O2 Saturation 94.1 % (95.0-98.0) L 08/22/17 05:00 FiO2 21.0 % 08/22/17 05:00 Sodium 139 mmol/L (132-148) 08/25/17 06:10 Potassium 4.2 mmol/L (3.6-5.0) 08/25/17 06:10 Chloride 110 mmol/L (98-107) H 08/25/17 06:10 Carbon Dioxide 25 mmol/L (21-33) 08/25/17 06:10 Anion Gap 8 (10-20) L 08/25/17 06:10 BUN 7 mg/dL (7-21) 08/25/17 06:10 Creatinine 0.6 mg/dl (0.7-1.2) L 08/25/17 06:10 Est GFR ( Amer) > 60 08/25/17 06:10 Est GFR (Non-Af Amer) > 60 08/25/17 06:10 Random Glucose 86 mg/dL (70-110) 08/25/17 06:10 Serum Osmolality 302 mosm/kg (272-300) H 08/21/17 23:40 Calcium 9.1 mg/dL (8.4-10.5) 08/25/17 06:10 Magnesium 1.7 mg/dL (1.7-2.2) 08/21/17 20:55 Total Bilirubin 0.6 mg/dL (0.2-1.3) 08/23/17 05:00 AST 27 U/L (14-36) 08/23/17 05:00 ALT 46 U/L (7-56) 08/23/17 05:00 Alkaline Phosphatase 95 U/L (38-126) 08/23/17 05:00 Lactate Dehydrogenase 1203 U/L (333-699) H 08/20/17 19:35 Total Creatine Kinase 56 U/L (35-230) 08/20/17 19:35 Troponin I 0.03 ng/mL 08/20/17 19:35 NT-Pro-B Natriuret Pep 1530 pg/mL (0-450) H 08/21/17 23:00 Total Protein 5.4 g/dL (5.8-8.3) L 08/23/17 05:00 Albumin 2.6 g/dL (3.0-4.8) L 08/23/17 05:00 Globulin 2.8 gm/dL 08/23/17 05:00 Albumin/Globulin Ratio 0.9 (1.1-1.8) L 08/23/17 05:00 Thyroxine (T4) 5.8 ug/dL (5.5-11.0) 08/22/17 06:15 TSH 3rd Generation 3.84 mIU/mL (0.46-4.68) 08/22/17 06:15 Urine Color Yellow (YELLOW) 08/21/17 20:50 Urine Appearance Clear (CLEAR) 08/21/17 20:50 Urine pH 6.5 (4.7-8.0) 08/21/17 20:50 Ur Specific [place] <= 1.005 (1.005-1.035) 08/21/17 20:50 Urine Protein Negative mg/dL (<30 mg/dL) 08/21/17 20:50 Urine Glucose (UA) Negative mg/dL (NEGATIVE) 08/21/17 20:50 Urine Ketones Negative mg/dL (NEGATIVE) 08/21/17 20:50 Urine Blood Negative (NEGATIVE) 08/21/17 20:50 Urine Nitrate Negative (NEGATIVE) 08/21/17 20:50 Urine Bilirubin Negative (NEGATIVE) 08/21/17 20:50 Urine Urobilinogen 0.2 E.U./dL (<1 E.U./dL) 08/21/17 20:50 Ur Leukocyte Esterase Negative Thomas/uL (NEGATIVE) 08/21/17 20:50 Urine Osmolality 86 mosm/kg (300-1000) L 08/22/17 00:00 Ur Random Sodium 29 meq/L 08/21/17 20:50 Ur Random Potassium 4.6 meq/L 08/21/17 20:50 Ur Random Calcium 2.4 mg/dL 08/21/17 23:00 Urine Chloride 25 mmol/L (32-290) L 08/21/17 22:22 [id number] Ab <9 RADHA (<=20) 08/22/17 06:15 Beta-2 GPI IgG Ab <9 SGU (<=20) 08/22/17 06:15 Beta-2 GPI IgM Ab <9 SMU (<=20) 08/22/17 06:15 Phosphatidylserine IgG <10 U/mL (<10) 08/22/17 06:15 Phosphatidylserine IgA <20 U/mL (<20) 08/22/17 06:15 Phosphatidylserine IgM <25 U/mL (<25) 08/22/17 06:15 Anti-Phospholipid Intrp see note 08/22/17 06:15 Anti-Cardiolipin IgG Ab <14 GPL (<=14) 08/22/17 06:15 Anti-Cardiolipin IgA Ab <11 APL (<=11) 08/22/17 06:15 Anti-Cardiolipin IgM Ab <12 MPL (<=12) 08/22/17 06:15 Hepatitis A IgM Ab Negative (NEGATIVE) 08/21/17 15:00 Hep Bs Antigen Negative (NEGATIVE) 08/21/17 15:00 Hep B Core IgM Ab Negative (NEGATIVE) 08/21/17 15:00 Hepatitis C Antibody Negative (NEGATIVE) 08/21/17 15:00 - Constitutional Appears: Well, No Acute Distress - Head Exam Head Exam: ATRAUMATIC, NORMAL INSPECTION, NORMOCEPHALIC - Eye Exam Eye Exam: Normal appearance - ENT Exam ENT Exam: Normal External Ear Exam - Neck Exam Neck Exam: Normal Inspection - Respiratory Exam Respiratory Exam: NORMAL BREATHING PATTERN - Cardiovascular Exam Cardiovascular Exam: absent: JVD - GI/Abdominal Exam GI & Abdominal Exam: absent: Distended - Rectal Exam Rectal Exam: Deferred - Exam Additional comments: Deferred. - Extremities Exam Extremities Exam: Normal Inspection Additional comments: No significant positive finding in feet. - Back Exam Back Exam: NORMAL INSPECTION - Neurological Exam Neurological Exam: Alert, Awake, Oriented x3 - Psychiatric Exam Psychiatric exam: Normal Affect, Normal Mood - Skin Skin Exam: Normal Color Assessment and Plan - Assessment and Plan (Free Text) Assessment: Both feet pain. DVT leg. Pulmonary embolism. Degenerative arthritis. Smoker. Alcohol user. Plan: Motrin 400 mg x1. Continue present management.
[2017-08-26] MEDS: Sodium Chloride 0.9% 1,000 ML IV SCH ×6 (05:19→22:48)
[2017-08-26 06:58] LABS: INR 1.36 (0.93-1.08); PARTIAL THROMBOPLASTIN TIME 55.8 Seconds (25.1-36.5); PROTHROMBIN TIME 15.7 SECONDS (9.4-12.5)
[2017-08-26 06:59] LABS: BLOOD UREA NITROGEN 8 mg/dL (7-21); CALCIUM 9.1 mg/dL (8.4-10.5); GFR AFRICAN-AMERICAN > 60; GFR NON-AFRICAN AMERICAN > 60
[2017-08-26] MEDS ORDERED: Sodium Chloride 0.9% 1,000 ML IV SCH (14:00)
[2017-08-26] MEDS: TraMADol/Apap 37.5/325 mg Tab PO PRN (14:24)
--- NOTE | 2017-08-26 18:36 | US ---
PROCEDURE: Lower extremity RADHA exam HISTORY: Peripheral vascular disease with pain and claudication. Smoker PHYSICIAN(S): Rafael Bhatia MD. FINDINGS: The resting RADHA's are normal: right, 1.01and left, 0.99. The brachial systolic pressures are symmetric. The high thigh pressures and waveforms are relatively normal. The calf PVR waveforms augment normally. No significant gradients are noted across the thighs. The ankle waveforms are relatively normal and symmetric. No significant pressure gradients are noted across the lower legs. IMPRESSION: 1. Relatively normal RADHA and PVR examination at rest.
[2017-08-27] MEDS: Heparin25000 units/250ml 1/2NS 25,000 UNITS/250 ML BAG IV SCH (03:12)
[2017-08-27] MEDS: TraMADol/Apap 37.5/325 mg Tab PO PRN ×2 (03:14→15:59)
[2017-08-27] MEDS: Sodium Chloride 0.9% 1,000 ML IV SCH ×4 (03:15→21:12)
[2017-08-27 07:24] LABS: INR 1.5 (0.93-1.08); PARTIAL THROMBOPLASTIN TIME 70.5 Seconds (25.1-36.5); PROTHROMBIN TIME 17.4 SECONDS (9.4-12.5)
[2017-08-27 07:50] LABS: BLOOD UREA NITROGEN 10 mg/dL (7-21); CALCIUM 8.8 mg/dL (8.4-10.5); GFR AFRICAN-AMERICAN > 60; GFR NON-AFRICAN AMERICAN > 60
--- NOTE | 2017-08-27 09:00 | PN ---
DATE: 08/26/2017 SUBJECTIVE: This 57-year-old female was examined at her bedside and her case was reviewed in detail with her nurse, Therese Davis, registered nurse. The patient remains comfortable denying chest pain or shortness of breath on the cardiac unit. She is in a normal sinus rhythm. She initially was admitted with a left leg tibial, popliteal DVT and right lung pulmonary embolism. She is currently on IV heparin while being bridged with oral Coumadin. There have been no reports of hematemesis, melena, hematuria or hemoptysis. She is cooperating with diet, medication, nursing and physical therapy. PHYSICAL EXAMINATION: VITAL SIGNS: Shows temperature 98.2, respirations 18, pulse 85, blood pressure 100/60. Pulse ox 100% room air. HEENT: Head normocephalic, atraumatic. Eyes: No icterus. Ears: Clear. Throat: Noninjected. NECK: Supple. HEART: S1, S2. LUNGS: Clear. ABDOMEN: Soft. EXTREMITIES: No edema. SKIN: Without rash. NEUROLOGICAL: Intact. PSYCHOLOGICAL: Alert. VASCULAR: Legs warm to touch. LABORATORY DATA: PT/INR 1.36, PTT 55.8. Sodium 138, K 4.5, chloride 108, bicarb 25, BUN 8, creatinine 0.6, random blood sugar 75. Foot x-rays were reviewed and showed no evidence of fracture. Bilateral lower extremity arterial Doppler studies are pending. IMPRESSION: A 57-year-old female with left leg deep venous thrombosis, right lung pulmonary embolism with resolved hypokalemia and resolved hyponatremia, now complaining of bilateral foot pain with a history of cigarette smoking, rule out peripheral vascular disease. PLAN: Plan is to maintain this patient on the cardiac unit. She continues on IV heparin protocol while being bridged with oral Coumadin and monitoring daily PT/INR as well as PTT levels. She will have a basic metabolic panel repeated for completeness sake in the a.m. She continues on Pepcid 20 mg p.o. h.s., 0.9 saline at 125 mL per hour, thiamine 50 mg p.o. daily, Tylenol 650 p.o. q.6h. p.r.n. [id number] pain and Ultracet 1 tablet p.o. q.12h. p.r.n. severe pain. She continues on a soft bland diet, high-risk fall protocol. She is wearing AE hose and will have continued physical therapy. Ultimate plan will be for discharge to home when medically stable. She will need outpatient monitoring and continued oral Coumadin as an outpatient. Her anticoagulation blood panel ordered on admission remains pending. Kena Lazo MD [facility]
[2017-08-28] MEDS: Heparin25000 units/250ml 1/2NS 25,000 UNITS/250 ML BAG IV SCH ×2 (01:22→10:02)
[2017-08-28] MEDS: TraMADol/Apap 37.5/325 mg Tab PO PRN ×2 (03:59→22:13)
[2017-08-28 08:32] LABS: INR 1.54 (0.93-1.08); PARTIAL THROMBOPLASTIN TIME 68.7 Seconds (25.1-36.5); PROTHROMBIN TIME 17.9 SECONDS (9.4-12.5)
[2017-08-28] MEDS: Sodium Chloride 0.9% 1,000 ML IV SCH ×4 (12:40→21:17)
--- NOTE | 2017-08-28 12:59 | CP.PCM.CON ---
History of Present Illness - History of Present Illness History of Present Illness: Mrs. Rice is a 57-year-old woman who is currently admitted for DVT (left popliteal/tibial) and PE, started on heparin. She has been complaining of bilateral foot numbness/tingling/pain. Feels like burning at times. She had seen a neurologist as an outpatient and is being worked up. She has not had follow-up due to the of her and personal difficulty. Review of Systems - Review of Systems All systems: reviewed and no additional remarkable complaints except Past Patient History - Infectious Disease Hx of Infectious Diseases: None - Past Social History Smoking Status: Light Smoker < 10 Cigarettes Daily - CARDIAC Hx Cardiac Disorders: No - PULMONARY Hx Respiratory Disorders: Yes Hx Asthma: Yes - NEUROLOGICAL Hx Neurological Disorder: No - HEENT Hx HEENT Problems: No - RENAL Hx Chronic Kidney Disease: No - ENDOCRINE/METABOLIC Hx Endocrine Disorders: No - HEMATOLOGICAL/ONCOLOGICAL Hx Blood Disorders: No - INTEGUMENTARY Hx Dermatological Problems: No - MUSCULOSKELETAL/RHEUMATOLOGICAL Hx Musculoskeletal Disorders: No Hx Falls: No - GASTROINTESTINAL Hx Gastrointestinal Disorders: No - GENITOURINARY/GYNECOLOGICAL Hx Genitourinary Disorders: No - PSYCHIATRIC Hx Substance Use: No - SURGICAL HISTORY Hx Surgeries: No - ANESTHESIA Hx Anesthesia: No Meds Allergies/Adverse Reactions: Allergies Allergy/AdvReac Type Severity Reaction Status Date / Time No Known Allergies Allergy Verified 08/20/17 18:43 - Medications Medications: Current Medications Acetaminophen (Tylenol 325mg Tab) 650 mg PO Q6H PRN PRN Reason: Pain, moderate (4-7) Last Admin: 08/25/17 20:29 Dose: 650 mg Albuterol/Ipratropium (Duoneb 3 Mg/0.5 Mg (3 Ml) Ud) 3 ml IH [id number] PRN PRN Reason: Shortness of Breath Camphor/Menthol (Bengay) 0 gm TOP QID PRN PRN Reason: Pain, Mild (1-3) Last Admin: 08/25/17 20:35 Dose: 1 appl Famotidine (Pepcid) 20 mg PO HS MELY Last Admin: 08/27/17 21:16 Dose: 20 mg Heparin Sodium/Sodium Chloride (Heparin 71941 Units/250ml 1/2 Normal Saline) 25 ,000 units in 250 mls @ 9.194 mls/hr IV .Q24H MELY; 18 UNITS/KG/HR PRN Reason: Protocol Last Admin: 08/28/17 10:02 Dose: 16 units/kg/hr, 8.172 mls/hr Sodium Chloride (Sodium Chloride 0.9%) 1,000 mls @ 125 mls/hr IV .Q8H MELY Last Admin: 08/28/17 12:41 Dose: 125 mls/hr Thiamine HCl (Vitamin B1 Tab) 50 mg PO DAILY MELY Last Admin: 08/28/17 09:20 Dose: 50 mg Tramadol/Acetaminophen (Ultracet 37.5/325 Mg) 1 tab PO Q12 PRN PRN Reason: Pain, severe (8-10) Last Admin: 08/28/17 03:59 Dose: 1 tab Warfarin Sodium (Coumadin) 5 mg PO 1800 MELY PRN Reason: Protocol Last Admin: 08/27/17 17:54 Dose: 5 mg Physical Exam - Constitutional Appears: Well - Head Exam Head Exam: ATRAUMATIC, NORMAL INSPECTION, NORMOCEPHALIC - Eye Exam Eye Exam: EOMI, Normal appearance, PERRL - ENT Exam ENT Exam: Mucous Membranes Moist, Normal Exam - Neck Exam Neck exam: Positive for: Normal Inspection - Respiratory Exam Respiratory Exam: Clear to Auscultation Bilateral, NORMAL BREATHING PATTERN - Cardiovascular Exam Cardiovascular Exam: REGULAR RHYTHM, +S1, +S2 - GI/Abdominal Exam GI & Abdominal Exam: Normal Bowel Sounds, Soft. absent: Tenderness - Rectal Exam Rectal Exam: Deferred - Extremities Exam Extremities exam: Positive for: tenderness, pedal pulses present Additional comments: Hypersensitive bilaterally, but intact sensation to LT/P/T. - Back Exam Back exam: NORMAL INSPECTION - Neurological Exam Neurological exam: Alert, CN II-XII Intact, Normal Gait, Oriented x3, Reflexes Normal Results - Vital Signs Recent Vital Signs: Last Vital Signs Temp 97.7 F 08/28/17 06:00 Pulse 79 08/28/17 08:38 Resp 18 08/28/17 06:00 BP 88/50 L 08/28/17 06:00 Pulse Ox 97 08/28/17 06:00 - Labs Result Diagrams: 08/24/17 04:10 08/27/17 06:00 Labs: Laboratory Results - last 24 hr 08/28/17 07:50 PT 17.9 H INR 1.54 H APTT 68.7 H Assessment & Plan (1) Peripheral neuropathy Assessment and Plan: The patient may be started on neurontin at 100 mg TID and titrated up to 300 mg TID. She will require nerve conduction studies and EMG, which can be done as an outpatient. She lives in [place] and may be able to follow up with Dr. Lyle Hamilton for NCS/EMG. Status: Chronic Priority: Low
[2017-08-29] MEDS: Heparin25000 units/250ml 1/2NS 25,000 UNITS/250 ML BAG IV SCH (01:09)
[2017-08-29] MEDS: Sodium Chloride 0.9% 1,000 ML IV SCH ×5 (01:25→21:22)
--- NOTE | 2017-08-29 03:22 | PN ---
DATE: 08/28/2017 SUBJECTIVE: This 57-year-old female remains on the cardiac mahoney. Her case was reviewed in detail at the bedside with herself and her nurse, Krystal Madsen. The patient remains hospitalized on IV heparin and is being bridged with oral Coumadin to a therapeutic PT/INR for left leg DVT and right lung pulmonary embolism. Patient denies any fever, chills, chest pain, cough, shortness of breath, hemoptysis, hematemesis or melena. There have been no reports of dizziness. 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 She was seen earlier by neurology who concurs with the presumptive diagnosis of peripheral neuropathy. She has been started on Neurontin 100 mg b.i.d. and she has been informed she will need NCV/EMG studies as outpatient. PHYSICAL EXAMINATION: VITAL SIGNS: Her explosive ordnance technician shows normal sinus rhythm, temperature 97.7, respirations 18, pulse 80, blood pressure 90/55 with a pulse ox of 97% room air. HEENT: Head is normocephalic, atraumatic. Eyes: No icterus. Ears clear. Throat: Noninjected. NECK: Supple. HEART: Regular S1, S2. LUNGS: Clear. ABDOMEN: Soft. EXTREMITIES No edema. SKIN: Without rash. NEUROLOGICAL: Intact. PSYCHOLOGICAL: Alert. VASCULAR: Legs warm to touch. Palpable pedal pulses bilaterally. SKIN: No ulcers. No rash. White count 6600, hemoglobin 14.1, hematocrit 41.9, platelets 325,000. PT/INR 1.54, PTT 68.7. Sodium 137, K 4.2, chloride 107, bicarb 25, BUN 10, creatinine 0.6, random blood sugar 78, bilirubin 0.6, AST 27, ALT 46, alk phos 95. Urinalysis is unremarkable. Hepatitis A, B, C serology is negative. I spoke with the yvon patel in the [facility], whose name is Dudley. He will be obtaining results for me for the coagulation panel including factor V Leiden mutation, protein C, protein S activity, antithrombin III levels and antiphospholipid antibodies. IMPRESSION: A 57-year-old female with new-onset left leg deep venous thrombosis, right lung pulmonary embolism, now with peripheral neuropathy, subtherapeutic PT/INR, while continuing on IV heparin therapy until bridging with Coumadin is complete. PLAN: Plan at present is to continue this patient on the cardiac unit. She continues to wear antiembolism stockings daily removing bedtime. She remains on high-risk fall protocol and is tolerating regular diet. She continues on thiamine 50 mg p.o. daily, 0.9 saline at 125 cc/hour, Pepcid 20 mg p.o. daily, Neurontin 100 mg p.o. t.i.d., IV heparin protocol while monitoring PTT level, dual nebulizer q. 4 hours. p.r.n. shortness of breath, Coumadin 5 mg p.o. daily, monitoring INR and holding Coumadin for any level greater than 3. The plan is to check repeat PTT and INR levels in the a.m. She will start to have her 0.9 saline tapered in anticipation of discharge. She will be ambulated on the cardiac mahoney with physical therapy for ambulation safety and ultimate plan will be for discharge to home when medically stable and INR is therapeutic. All of the above was discussed in detail with the patient and nursing at bedside. Greater than 35 minutes was spent in the care management, review of x-rays, labs and tracking down of missing reports for this patient today. I will discuss with the director of the lab if he has found the results of her coagulation profile in the a.m. All of the above was discussed with the patient at her bedside. Disability forms were completed. All questions were answered Kena Lazo MD ARIANNA
[2017-08-29 08:47] LABS: INR 1.61 (0.93-1.08); PARTIAL THROMBOPLASTIN TIME 57.6 Seconds (25.1-36.5); PROTHROMBIN TIME 18.7 SECONDS (9.4-12.5)
[2017-08-29] MEDS: TraMADol/Apap 37.5/325 mg Tab PO PRN (11:06)
[2017-08-29] MEDS: Heparin25000 units/250ml 1/2NS 25,000 UNITS/250 ML BAG IV PRN (18:22)
[2017-08-30] MEDS: Sodium Chloride 0.9% 1,000 ML IV SCH ×3 (04:28→21:59)
--- NOTE | 2017-08-30 06:59 | PN ---
DATE: 08/29/2017 SUBJECTIVE: This 57-year-old female was examined at her bedside on the cardiac unit. Her case was reviewed in detail with her nurse, Judy Hudson, as well as the patient. The patient remains alert and cooperative with nursing staff. She remains on IV heparin for left leg DVT and right lung pulmonary embolism. She denies any fever, chills, chest pain, shortness of breath, hemoptysis, hematemesis or gross hematuria. 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 PHYSICAL EXAMINATION: VITAL SIGNS: Her temperature is 98.4, respirations 20, pulse 90, blood pressure 102/72. Pulse ox was 100% on room air. HEENT: Head: Normocephalic, atraumatic. Eyes: No icterus. Ears: Clear. Throat: Noninjected. NECK: Supple. HEART: Regular, S1, S2. LUNGS: Clear. ABDOMEN: Soft. EXTREMITIES: No edema. SKIN: Without rash. NEUROLOGICAL: Intact. PSYCHOLOGICAL: Alert. VASCULAR: Legs warm to touch. LABORATORY DATA: White count 6600, hemoglobin 14.1, hematocrit 41.9, platelets 325,000. PT/INR 1.61, PTT 57.6. Sodium 137, K 4.2, chloride 107, bicarb 25, BUN 10, creatinine 0.6, random blood sugar 78. IMPRESSION: A 57-year-old female with newly noted left leg deep venous thrombosis, right lung pulmonary embolism, on IV heparin protocol, while being bridged with oral Coumadin, still with a subtherapeutic prothrombin time/international normalized ratio, also with deconditioning and history of smoking and anxiety. PLAN: Patient was walked by myself around the cardiac unit without incident. She had no report of chest pain, shortness of breath or weakness. She has been started on Neurontin 100 mg p.o. t.i.d. for neuropathy of her feet. She is aware she will need an outpatient NCV and EMG study by Neurology when stable. She will continue on a soft bland diet, high-risk fall protocol, thiamine 50 mg p.o. daily, 0.9 saline will be tapered to 60 mL per hour. She continues on Pepcid 20 mg p.o. at bedtime for GI prophylaxis, IV heparin protocol, dual nebulizer q.4 hours p.r.n. shortness of breath, Coumadin 5 mg p.o. daily. She will have a repeat PT/INR in the a.m., basic metabolic panel and hemoglobin/hematocrit. PTT levels have been ordered as well and all of the above was reviewed in detail with the patient and cardiac unit nursing. All questions were answered. Kena Lazo MD MTDD
[2017-08-30 07:06] LABS: INR 1.26 (0.93-1.08); PARTIAL THROMBOPLASTIN TIME 34.3 Seconds (25.1-36.5); PROTHROMBIN TIME 14.6 SECONDS (9.4-12.5)
[2017-08-30 07:35] LABS: BLOOD UREA NITROGEN 15 mg/dL (7-21); GFR AFRICAN-AMERICAN > 60; GFR NON-AFRICAN AMERICAN > 60
--- NOTE | 2017-08-30 08:03 | CP.PCM.PN ---
Subjective - Date & Time of Evaluation Date of Evaluation: 08/30/17 Time of Evaluation: 08:00 - Subjective Subjective: Ms. Rice was seen and examined at the bedside. She is alert, oriented in all spheres. She denies any headache, dizziness, lightheadedness, nausea, or vomiting. She verbalizes that she has been going to the bathroom numerous times during the night. Currently, the patient is receiving IVF and heparin drip for her DVT. She is able to follow simple commands still complaining of lower extremities pain. She further states of the pain is improving in comparison from admission. There was no untoward events overnight. Objective - Vital Signs/Intake and Output Vital Signs (last 24 hours): Temp Pulse Resp BP Pulse Ox 99.0 F 109 H 18 86/65 L 99 08/30/17 06:00 08/30/17 06:00 08/30/17 06:00 08/30/17 06:00 08/30/17 06:00 Intake and Output: 08/30/17 08/30/17 06:59 18:59 Intake Total 840 Balance 840 - Medications Medications: Current Medications Acetaminophen (Tylenol 325mg Tab) 650 mg PO Q6H PRN PRN Reason: Pain, moderate (4-7) Last Admin: 08/25/17 20:29 Dose: 650 mg Albuterol/Ipratropium (Duoneb 3 Mg/0.5 Mg (3 Ml) Ud) 3 ml IH [id number] PRN PRN Reason: Shortness of Breath Camphor/Menthol (Bengay) 0 gm TOP QID PRN PRN Reason: Pain, Mild (1-3) Last Admin: 08/25/17 20:35 Dose: 1 appl Famotidine (Pepcid) 20 mg PO HS MELY Last Admin: 08/29/17 21:22 Dose: 20 mg Gabapentin (Neurontin) 100 mg PO TID MELY PRN Reason: Protocol Last Admin: 08/29/17 21:24 Dose: 100 mg Heparin Sodium/Sodium Chloride (Heparin 22138 Units/250ml 1/2 Normal Saline) 25 ,000 units in 250 mls @ 9.438 mls/hr IV .Q24H PRN; Protocol; 18 UNITS/KG/HR PRN Reason: ADJUST RATE PER PROTOCOL Last Admin: 08/29/17 18:22 Dose: 16 units/kg/hr, 8.39 mls/hr Sodium Chloride (Sodium Chloride 0.9%) 1,000 mls @ 60 mls/hr IV .[id number] [facility] Last Admin: 08/30/17 04:28 Dose: 60 mls/hr Thiamine HCl (Vitamin B1 Tab) 50 mg PO DAILY [facility] Last Admin: 08/29/17 10:54 Dose: 50 mg Tramadol/Acetaminophen (Ultracet 37.5/325 Mg) 1 tab PO Q12 PRN PRN Reason: Pain, severe (8-10) Last Admin: 08/29/17 11:06 Dose: 1 tab Warfarin Sodium (Coumadin) 5 mg PO 1800 [facility] PRN Reason: Protocol Last Admin: 08/29/17 18:13 Dose: 5 mg - Labs Labs: 08/30/17 06:20 08/30/17 06:20 PT 14.6 SECONDS (9.4-12.5) H 08/30/17 06:20 INR 1.26 (0.93-1.08) H 08/30/17 06:20 APTT 34.3 Seconds (25.1-36.5) 08/30/17 06:20 - Constitutional Appears: No Acute Distress - Head Exam Head Exam: NORMAL INSPECTION - Extremities Exam Additional comments: Positive for: tenderness, pedal pulses present. Hypersensitive bilaterally, but intact sensation to LT/P/T. Assessment and Plan (1) Peripheral neuropathy Assessment & Plan: Case discussed with Dr. Carvalho, continue all current medical regimen. Recommend EMG and nerve conduction studies which can be done as an outpatient. Status: Chronic
--- NOTE | 2017-08-30 08:35 | PN ---
DATE: 08/27/2017 SUBJECTIVE: This 57-year-old female who was examined on the cardiac mahoney. 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 She denies fever, chills, chest pain. She denies shortness of breath. She denies hemoptysis, hematemesis, melena or gross hematuria. She remains on both IV heparin and oral Coumadin. She is having both PT/INR and PTT monitored daily. Her INR remains subtherapeutic. She did complete bilateral arterial Dopplers of both lower extremities. They were reviewed and failed to show any evidence of arterial peripheral vascular disease. The patient has been without smoking for the past week and denies any nervousness related to the above. PHYSICAL EXAMINATION VITAL SIGNS: Temperature is 98.2, respirations 18, pulse 93, blood pressure 100/64. Pulse ox 99% room air. HEENT: Head normocephalic, atraumatic. Eyes: No icterus. Ears: Clear. Throat: Noninjected. NECK: Supple. HEART: Regular S1, S2. LUNGS: Decreased breath sounds at right base. ABDOMEN: Soft. No palpable organomegaly. No rebound, no guarding. No tenderness. EXTREMITIES: No clubbing, no cyanosis, no edema. SKIN: Without rash. NEUROLOGICAL: Intact. PSYCHOLOGICAL: Anxiety. VASCULAR: Legs warm to touch. LABORATORY DATA: White count 6600, hemoglobin 14.1, hematocrit 41.9, platelets 325,000. PT/INR 1.5, PTT 70.5. Sodium 137, K 4.2, chloride 107, bicarb 25, BUN 10, creatinine 0.6, random blood sugar 78. Hepatitis A, B, C serology is negative. Anticoagulation hypercoagulable workup including antiphospholipid antibody, antithrombin III activity, factor V Leiden mutation and protein C and protein S antigens all remain pending. Foot x-rays were reviewed, no evidence of fracture or arthritis. Bilateral arterial Dopplers were reviewed, no evidence of peripheral vascular disease. IMPRESSION: A 57-year-old female admitted with a left tibial, popliteal leg deep venous thrombosis and computed tomography evidence of right pulmonary embolism with comorbidities of alcohol abuse, admitted with elevated liver function testing, most likely on the basis of alcohol use with a negative hepatitis A,B,C serology panel and liver ultrasound that failed to show any liver mass or obvious liver disease, also with admission hyponatremia, hypokalemia, resolved, and probable chronic mild hypotension, asymptomatic, but now with symptomatic bilateral foot pain, which has been present since prior to admission; chronic smoking misuse and abuse and history of anxiety. PLAN: Patient remains on cardiac unit. She continues on IV heparin protocol, Coumadin 5 mg daily, monitoring daily PTT and PT/INR levels with plans to hold Coumadin for any INR greater than 3. She continues on 2 liters nasal O2 p.r.n., dual nebulizer therapy q.4 hours p.r.n., IV heparin protocol, Pepcid 20 mg p.o. h.s., 0.9 saline at 125 mL per hour, thiamine 50 mg p.o. daily, Tylenol 650 p.o. q.6 hours. p.r.n. pain, mild pain or temperature greater than 101 and Ultracet 1 tablet p.o. q.12 hours p.r.n. [id number] pain. She continues on a regular diet. She is wearing antiembolism hose, daily removing h.s. She is ordered to be ambulated with assistance and also to remain on high-risk fall protocol. I will place a consultation with Dr. Carvalho, Neurology, regarding bilateral foot pain and concerns for neuropathy and patient will be ambulated with nursing staff and physical therapy for safety sake. All of the above was reviewed in detail with patient and nursing. Greater than 35 minutes was spent in the care, review of x-rays, labs, ultrasounds, CAT scans. All questions were answered. Patient is requested that temporary disability forms be completed, which she will obtain from work. Kena Lazo MD ARIANNA
[2017-08-30] MEDS: TraMADol/Apap 37.5/325 mg Tab PO PRN ×2 (10:50→21:59)
[2017-08-30 15:54] LABS: ARGININE VASOPRESSIN 1.4 pg/mL
[2017-08-30 20:42] LABS: INR 1.18 (0.93-1.08); PROTHROMBIN TIME 13.5 SECONDS (9.4-12.5)
[2017-08-30 20:43] LABS: PARTIAL THROMBOPLASTIN TIME 52.5 Seconds (25.1-36.5)
[2017-08-31] MEDS: Heparin25000 units/250ml 1/2NS 25,000 UNITS/250 ML BAG IV PRN (02:57)
[2017-08-31 07:21] LABS: INR 1.18 (0.93-1.08); PROTHROMBIN TIME 13.6 SECONDS (9.4-12.5)
[2017-08-31 07:33] LABS: PARTIAL THROMBOPLASTIN TIME 39.6 Seconds (25.1-36.5)
--- NOTE | 2017-08-31 08:30 | PN ---
DATE: 08/30/2017 SUBJECTIVE: This 57-year-old female was examined at her bedside. She is on the cardiac unit. She denies fever, chills, chest pain, or shortness of breath. There have been no reports of hemoptysis, hematemesis, or melena. She remains on IV heparin protocol for left leg DVT and right lung pulmonary embolism and is being bridged with oral Coumadin. The patient was ambulated without shortness of breath or chest pain and is improving with reconditioning and gait training. PHYSICAL EXAMINATION: VITAL SIGNS: Temperature 98.7, respirations 20, pulse 96, blood pressure 89/57. Pulse ox 99% on room air. HEENT: Head: Normocephalic, atraumatic. Eyes: No icterus. Ears: Clear. Throat: Noninjected. NECK: Supple. HEART: Regular S1, S2. LUNGS: Clear. ABDOMEN: Soft. EXTREMITIES: No edema. SKIN: Without rash. NEUROLOGICAL: Intact. PSYCHOLOGICAL: Alert. VASCULAR: Legs warm to touch. LABORATORY DATA: Hemoglobin 13, hematocrit 39.2. PT/INR 1.26, PTT 34.3. Sodium 138, K 4.4, chloride 104, bicarb 26, BUN 15, creatinine 0.6, random blood sugar 76. Urinalysis unremarkable. Hepatitis A, B serologies are negative. I did review her coagulation profile, all of which was negative except for a slightly low antithrombin III level. This was reviewed with Dr. Swapnil Black from Hematology who felt that this was an insignificant finding. The patient was on IV heparin with a leg DVT at the time of blood testing and that the patient will require approximately 9 to 12 months of oral Coumadin therapy as well for left leg DVT and pulmonary embolism. IMPRESSION: A 57-year-old female with left leg deep vein thrombosis, right lung pulmonary embolism, peripheral neuropathy, deconditioning, chronic smoking history, and history of alcohol use in the past. PLAN: As discussed with the patient will be to continue thiamine 50 mg p.o. daily, 0.9 saline has been reduced to 50 mL per hour, Pepcid 20 mg p.o. at bedtime, Neurontin has been increased to 200 mg p.o. t.i.d., IV heparin protocol as outlined, and Coumadin has been increased to 7.5 mg p.o. daily. Patient will have daily monitoring of INR and PTT as per heparin protocol. She is ordered to have physical therapy for ambulation and gait training. She remains on fall precautions and ultimate plan will be for discharge to home when medically stable with the patient understanding she will need a protracted course of oral Coumadin with INR monitoring as an outpatient as well as Neurology followup as previously outlined. All of the above was discussed in detail with the patient, nursing, Dr. Black from hematology. All questions were answered. Kena Lazo MD MTDElver
[2017-08-31] MEDS: Sodium Chloride 0.9% 1,000 ML IV SCH ×2 (08:40→23:30)
--- NOTE | 2017-08-31 16:47 | PN ---
DATE: SUBJECTIVE: This 57-year-old female was examined on the cardiac mahoney. She was seen earlier by Cardiology today because last evening she was noted to have tachycardia with symptoms of mild shortness of breath in the setting of recent pulmonary embolism. At present, the patient is sitting in her room. She has completed breakfast. She denies any chest pain, shortness of breath, or palpitations and remains in a sinus rhythm on the cardiac rehabilitation program director. PHYSICAL EXAMINATION: VITAL SIGNS: Temperature 98.6, respirations 20, pulse 90, blood pressure 114/66. Pulse ox 98% room air. HEENT: Head normocephalic, atraumatic. Eyes no icterus. Ears: Clear. Throat: Noninjected. NECK: Supple. HEART: Regular, S1, S2. LUNGS: Clear. ABDOMEN: Soft. EXTREMITIES: No edema. SKIN: Without rash. NEUROLOGICAL: Intact. PSYCHOLOGICAL: Alert. VASCULAR: Legs warm to touch. LABORATORY DATA: Hemoglobin 13, hematocrit 39.2. PT/INR 1.18, PTT 53.4. Sodium 138, K 4.4, chloride 104, bicarb 26, BUN 15, creatinine 0.6, random blood sugar 76. IMPRESSION: A 57-year-old female with left leg deep venous thrombosis, right lung pulmonary embolism, peripheral neuropathy, and recent tachycardia. PLAN: Plan is to check 2-D echocardiogram for completeness sake. She continues on a soft bland diet. She will continue thiamine 50 mg p.o. daily, 0.9 saline at 60 cc/hour, Pepcid 20 mg p.o. at bedtime, Neurontin 20 mg p.o. t.i.d., IV heparin protocol. Coumadin has been increased to 10 mg p.o. daily. The patient will continue on daily INRs. Based on clinical progress and when the patient is cleared by Cardiology and when INR is therapeutic, she will be discharged home and monitored as an outpatient. As discussed with Dr. Swapnil Black from Hematology, she will require 9 to12 months of oral Coumadin therapy for left leg DVT and right lung pulmonary embolism. This was discussed with the patient in detail at bedside. All questions were answered. Kena Lazo MD [facility] # [id number] ARIANNA
[2017-08-31 20:31] LABS: INR 1.16 (0.93-1.08); PARTIAL THROMBOPLASTIN TIME 56.6 Seconds (25.1-36.5); PROTHROMBIN TIME 13.3 SECONDS (9.4-12.5)
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
[2017-08-31] MEDS: TraMADol/Apap 37.5/325 mg Tab PO PRN (22:23)
--- NOTE | 2017-08-31 22:26 | CARD ---
APPROVED REPORT EKG Measurement Heart [id number] <Conclusion> Sinus tachycardia Otherwise normal ECG
[2017-09-01] MEDS: Sodium Chloride 0.9% 1,000 ML IV SCH ×3 (06:08→21:28)
[2017-09-01] MEDS: Heparin25000 units/250ml 1/2NS 25,000 UNITS/250 ML BAG IV PRN (06:09)
--- NOTE | 2017-09-01 07:09 | CP.PCM.PN ---
Subjective - Date & Time of Evaluation Date of Evaluation: 09/01/17 Time of Evaluation: 07:06 - Subjective Subjective: Ms. Rice was seen and examined at the bedside. She is alert, oriented in all spheres. She denies any headache, blurred vision, numbness, but claims of pain in her bilateral toes. She further states of the pain improved since admission. She is currently receiving Heparin drip. She denies any unusual bleeding.She has a bilateral lower extremities terence stockings. She is able to follow simple commands. There was no untoward events overnight. Objective - Vital Signs/Intake and Output Vital Signs (last 24 hours): Temp Pulse Resp BP Pulse Ox 98.3 F 98 H 18 96/59 L 100 09/01/17 00:01 09/01/17 00:01 09/01/17 00:01 09/01/17 00:01 09/01/17 00:01 Intake and Output: 09/01/17 09/01/17 06:59 18:59 Intake Total 370 Output Total 0 Balance 370 - Medications Medications: Current Medications Acetaminophen (Tylenol 325mg Tab) 650 mg PO Q6H PRN PRN Reason: Pain, moderate (4-7) Last Admin: 08/25/17 20:29 Dose: 650 mg Albuterol/Ipratropium (Duoneb 3 Mg/0.5 Mg (3 Ml) Ud) 3 ml IH [id number] PRN PRN Reason: Shortness of Breath Camphor/Menthol (Bengay) 0 gm TOP QID PRN PRN Reason: Pain, Mild (1-3) Last Admin: 08/25/17 20:35 Dose: 1 appl Famotidine (Pepcid) 20 mg PO HS MELY Last Admin: 08/31/17 22:24 Dose: 20 mg Gabapentin (Neurontin) 200 mg PO TID MELY PRN Reason: Protocol Last Admin: 08/31/17 18:15 Dose: 200 mg Heparin Sodium/Sodium Chloride (Heparin 54902 Units/250ml 1/2 Normal Saline) 25 ,000 units in 250 mls @ 9.438 mls/hr IV .Q24H PRN; Protocol; 18 UNITS/KG/HR PRN Reason: ADJUST RATE PER PROTOCOL Last Admin: 09/01/17 06:09 Dose: 18 units/kg/hr, 9.438 mls/hr Sodium Chloride (Sodium Chloride 0.9%) 1,000 mls @ 60 mls/hr IV .[id number] [facility] Last Admin: 09/01/17 06:08 Dose: 60 mls/hr Thiamine HCl (Vitamin B1 Tab) 50 mg PO DAILY [facility] Last Admin: 08/31/17 10:44 Dose: 50 mg Tramadol/Acetaminophen (Ultracet 37.5/325 Mg) 1 tab PO Q12 PRN PRN Reason: Pain, severe (8-10) Last Admin: 08/31/17 22:23 Dose: 1 tab Warfarin Sodium (Coumadin) 10 mg PO 1800 [facility] PRN Reason: Protocol Last Admin: 08/31/17 18:15 Dose: 10 mg - Labs Labs: 08/30/17 06:20 08/30/17 06:20 PT 13.3 SECONDS (9.4-12.5) H 08/31/17 20:09 INR 1.16 (0.93-1.08) H 08/31/17 20:09 APTT 56.6 Seconds (25.1-36.5) H 08/31/17 20:09 - Constitutional Appears: No Acute Distress - Head Exam Head Exam: NORMAL INSPECTION - Neurological Exam Neurological Exam: Alert, Awake, Oriented x3 Neuro motor strength exam: Left Upper Extremity: 5, Right Upper Extremity: 5, Left Lower Extremity: 5, Right Lower Extremity: 5 Additional comments: Neurological unchanged from previous examination. Assessment and Plan (1) Peripheral neuropathy Assessment & Plan: Case discussed with Dr. Carvalho, continue all current medical regimen. Recommend EMG and nerve conduction studies which can be done as an outpatient. Status: Chronic
[2017-09-01 07:29] LABS: INR 1.36 (0.93-1.08); PROTHROMBIN TIME 15.7 SECONDS (9.4-12.5)
[2017-09-01 07:54] LABS: PARTIAL THROMBOPLASTIN TIME 55.1 Seconds (25.1-36.5)
--- NOTE | 2017-09-01 10:43 | CARD ---
APPROVED REPORT EXAM: Two-dimensional and M-mode echocardiogram with Doppler and color Doppler. INDICATION PE/TACHYCARDIA 2D DIMENSIONS Left Atrium (2D)3.5 (1.6-4.0cm)IVSd1.2 (0.7-1.1cm) LVDd3.8 (3.9-5.9cm)PWd1.3 (0.7-1.1cm) LVDs2.5 (2.5-4.0cm)FS (%) 34.9 % LVEF (%)64.9 (>50%) M-Mode DIMENSIONS Aortic Root3.20 (2.2-3.7cm)Aortic Cusp Exc.1.70 (1.5-2.0cm) Aortic Valve AoV Peak Eseakocu155.0cm/Ishan Peak GR.6mmHg Mitral Valve MV E Vwinpapj69.5cm/sMV A Sasueyjc11.0cm/sE/A ratio0.8 TDI E/Lateral E'0.0E/Medial E'0.0 Tricuspid Valve TR Peak Wlvzinsh347jl/sRAP IRSJAYTF29qyOfLJ Peak Gr.17mmHg [id number] LEFT VENTRICLE The left ventricle is normal size. There is mild concentric left ventricular hypertrophy. The left ventricular function is normal. The left ventricular ejection fraction is within the normal range. There is normal LV segmental wall motion. RIGHT VENTRICLE The right ventricle is normal size. The right ventricular systolic function is normal. ATRIA The left atrium size is normal. The right atrium size is normal. The interatrial septum is intact with no evidence for an atrial septal defect. AORTIC VALVE The aortic valve is normal in structure. No aortic regurgitation is present. There is no aortic valvular stenosis. MITRAL VALVE The mitral valve is normal in structure. There is no mitral valve regurgitation noted. TRICUSPID VALVE The tricuspid valve is normal in structure. There is trace tricuspid regurgitation. GREAT VESSELS The aortic root is normal in size. The IVC is normal in size and collapses >50% with inspiration. PERICARDIAL EFFUSION There is no pleural effusion. There is no pericardial effusion. <Conclusion> Left ventricular hypertrophy with normal left ventricular function.
--- NOTE | 2017-09-01 13:48 | PN ---
DATE: 09/01/2017 SUBJECTIVE: The patient is seen lying in bed, on telemetry. She feels significantly better today. She continues to have some foot pain however. Her heart rate is improved. CURRENT MEDICATIONS: Include warfarin, Duoneb inhaler, IV heparin, Neurontin, Pepcid, and Ultracet. OBJECTIVE: GENERAL: She is a middle-aged woman who appears comfortable at the present time. VITAL SIGNS: Blood pressure is 92/60 with a pulse of 74 and sinus, respirations are 14. She is afebrile. HEENT: No JVD. CHEST: Clear to auscultation and percussion. HEART: PMI normal position. No pathological gallops noted. ABDOMEN: Soft and nontender. Normoactive bowel sounds. EXTREMITIES: No edema. DIAGNOSTIC DATA: PT and INR 15.7 and 1.36, PTT is 55.1. Echocardiogram was reviewed, and reveals normal chamber size with mild concentric LVH and normal LV systolic function. No valvular abnormalities are noted. IMPRESSION: 1. Recent left side deep vein thrombosis and pulmonary embolus, clinically improved. 2. History of peripheral neuropathy. 3. Tachycardia, now resolved, likely secondary to stress of presenting illness. RECOMMENDATIONS: No further cardiac workup appears necessary at the present time. Obviously, anticoagulation for at least 6 months would be appropriate given her pulmonary embolus. We will continue to follow and make further recommendations as appropriate. oKko Castillo MD
--- NOTE | 2017-09-01 18:17 | PN ---
DATE: 09/01/2017 SUBJECTIVE: This 57-year-old female was examined on the cardiac mahoney. Her case was reviewed in detail with her nurse, Cyndee Meadows, and Dr. Dominic Patterson from Cardiology. The patient remains in a normal sinus rhythm on the cardiac cath rn. She denies any chest pain, shortness of breath, and there have been no reports of fever, chills, hemoptysis, hematemesis, or gross hematuria. I did review her 2-D echocardiogram. It shows normal left ventricular function. Her left atrium is normal in size, right atrium is normal in size. There is no evidence of atrial septal defect and valves were reviewed and showed no significant stenosis or regurgitations. PHYSICAL EXAMINATION: VITAL SIGNS: Temperature is 97.7, respirations 18, pulse 86, blood pressure 96/62 with a pulse ox of 99% on room air. HEENT: Head: Normocephalic, atraumatic. Eyes: No icterus. Ears: Clear. Throat: Noninjected. NECK: Supple. HEART: Regular S1, S2. LUNGS: Clear. ABDOMEN: Soft. EXTREMITIES: No edema. SKIN: Without rash. NEUROLOGICAL: Intact. PSYCHOLOGICAL: Alert. VASCULAR: Legs warm to touch. The patient is wearing her antiembolism stockings at present. Hemoglobin 13, hematocrit 39.2. INR 1.36, previously 1.16; PTT 55.1. Sodium 138, potassium 4.4, chloride 104, bicarb 26, BUN 15, creatinine 0.6, random blood sugar 76. IMPRESSION: A 57-year-old female with left leg DVT, right lung pulmonary embolism, peripheral neuropathy, and recent tachycardia secondary to deconditioning and bedridden status with a normal echocardiogram. PLAN: As discussed with the patient, nursing, Dr. Patterson from Cardiology, and Dr. Black from Hematology will be to continue IV heparin protocol while bridging the patient with Coumadin now increased to 10 mg p.o. daily while monitoring daily INR level and holding Coumadin for any INR greater than 3. She continues on dual nebulizer therapy p.r.n., Neurontin 200 mg p.o. t.i.d., Pepcid 20 mg p.o. at bedtime, 0.9 saline at 60 mL/hour, thiamine 15 mg p.o. daily. She is on a soft bland diet. She is ordered to have physical therapy for reconditioning and gait training. She is on high-risk fall protocol and ultimate plan will be for discharge to home when medically stable with close outpatient monitoring of PT/INRs. The patient is aware. She will need approximately 9-12 months of oral Coumadin therapy and is recommended to have nerve conduction velocity, EMG studies with Neurology, and a stress test with Dr. Patterson in his office. All of the above was discussed in detail with the patient, nursing, co-consultants. All questions were answered. Kena Lazo MD MTDD
[2017-09-01] MEDS: TraMADol/Apap 37.5/325 mg Tab PO PRN (21:29)
[2017-09-02 07:13] LABS: INR 1.42 (0.93-1.08); PARTIAL THROMBOPLASTIN TIME 37.2 Seconds (25.1-36.5); PROTHROMBIN TIME 16.4 SECONDS (9.4-12.5)
--- NOTE | 2017-09-02 07:25 | CP.PCM.PN ---
Subjective - Date & Time of Evaluation Date of Evaluation: 09/02/17 Time of Evaluation: 07:22 - Subjective Subjective: Ms. Rice was seen and examined at the bedside. She is alert, oriented in all spheres. She denies any headache, dizziness, lightheadedness, blurred vision, nause, or vomiting. She further states of the pain in her bilateral lower toes, currently receiving neurontin and heparin drip. She is able to move all extremities and positive pedal pulses. She remains with lower extremities terence stocking. There was no untoward events overnight. Objective - Vital Signs/Intake and Output Vital Signs (last 24 hours): Temp Pulse Resp BP Pulse Ox 97.6 F 89 18 97/59 L 98 09/02/17 06:00 09/02/17 06:00 09/02/17 06:00 09/02/17 06:00 09/02/17 06:00 Intake and Output: 09/02/17 09/02/17 06:59 18:59 Intake Total 1922 120 Balance 1922 120 - Medications Medications: Current Medications Acetaminophen (Tylenol 325mg Tab) 650 mg PO Q6H PRN PRN Reason: Pain, moderate (4-7) Last Admin: 08/25/17 20:29 Dose: 650 mg Albuterol/Ipratropium (Duoneb 3 Mg/0.5 Mg (3 Ml) Ud) 3 ml IH [id number] PRN PRN Reason: Shortness of Breath Camphor/Menthol (Bengay) 0 gm TOP QID PRN PRN Reason: Pain, Mild (1-3) Last Admin: 08/25/17 20:35 Dose: 1 appl Famotidine (Pepcid) 20 mg PO HS [facility]ELY Last Admin: 09/01/17 21:24 Dose: 20 mg Gabapentin (Neurontin) 200 mg PO TID [facility]ELY PRN Reason: Protocol Last Admin: 09/01/17 17:41 Dose: 200 mg Heparin Sodium/Sodium Chloride (Heparin 92974 Units/250ml 1/2 Normal Saline) 25 ,000 units in 250 mls @ 9.438 mls/hr IV .Q24H PRN; Protocol; 18 UNITS/KG/HR PRN Reason: ADJUST RATE PER PROTOCOL Last Admin: 09/01/17 06:09 Dose: 18 units/kg/hr, 9.438 mls/hr Sodium Chloride (Sodium Chloride 0.9%) 1,000 mls @ 60 mls/hr IV .[id number] [facility] Last Admin: 09/01/17 21:28 Dose: 60 mls/hr Thiamine HCl (Vitamin B1 Tab) 50 mg PO DAILY [facility] Last Admin: 09/01/17 09:41 Dose: 50 mg Tramadol/Acetaminophen (Ultracet 37.5/325 Mg) 1 tab PO Q12 PRN PRN Reason: Pain, severe (8-10) Last Admin: 09/01/17 21:29 Dose: 1 tab Warfarin Sodium (Coumadin) 10 mg PO 1800 [facility] PRN Reason: Protocol Last Admin: 09/01/17 17:40 Dose: 10 mg - Labs Labs: 08/30/17 06:20 08/30/17 06:20 PT 16.4 SECONDS (9.4-12.5) H 09/02/17 06:30 INR 1.42 (0.93-1.08) H 09/02/17 06:30 APTT 37.2 Seconds (25.1-36.5) H 09/02/17 06:30 - Constitutional Appears: No Acute Distress - Head Exam Head Exam: NORMAL INSPECTION - Neurological Exam Neurological Exam: Alert, Awake, CN II-XII Intact, Oriented x3 Neuro motor strength exam: Left Upper Extremity: 5, Right Upper Extremity: 5, Left Lower Extremity: 5, Right Lower Extremity: 5 Additional comments: Neurological unchanged from previous examination. Assessment and Plan (1) Peripheral neuropathy Assessment & Plan: Case discussed with Dr. Carvalho, continue all current medical therapy and to follow up with Dr. Ailin Hamilton for possible nerve conduction studies and EMG. Status: Chronic
[2017-09-02] MEDS: Heparin25000 units/250ml 1/2NS 25,000 UNITS/250 ML BAG IV PRN (09:28)
[2017-09-02] MEDS: TraMADol/Apap 37.5/325 mg Tab PO PRN ×2 (09:51→22:35)
[2017-09-02] MEDS: Sodium Chloride 0.9% 1,000 ML IV SCH (09:53)
--- NOTE | 2017-09-02 21:03 | PN ---
DATE: 09/02/2017 SUBJECTIVE: This 57-year-old female was examined at her bedside. She remains on the cardiac unit at the [facility]. She is on an IV heparin drip and is being monitored with protocol PTT, and adjustment of drip levels and heparin boluses for left leg DVT and right pulmonary embolism. The patient is being bridged with oral Coumadin and today has had subtherapeutic levels of INR. There have been no reports of fever, chills, hematemesis, melena, or gross hematuria. She is being followed by Cardiology who feels that the patient's previous tachycardia and hypotension is in the setting of deconditioning related to the above issues. At present, the patient denies any chest pain and is cooperating with the nursing staff. PHYSICAL EXAMINATION: VITAL SIGNS: groundwater monitoring technician shows normal sinus rhythm. Temperature 97.6, respirations 18, pulse 89, blood pressure 101/73. Pulse ox 98% on room air. HEAD: Normocephalic, atraumatic. EYES: No icterus. EARS: Clear. THROAT: Noninjected. NECK: Supple. HEART: Regular. S1, S2. LUNGS: Clear. ABDOMEN: Soft. EXTREMITIES: No edema. SKIN: Without rash. NEUROLOGICAL: Intact. PSYCHOLOGICAL: Alert. VASCULAR: Legs are warm to touch. LABORATORY DATA: Hemoglobin 13, hematocrit 39.2. PT/INR 1.42, previously 1.36. PTT is 76.4. Sodium 138, potassium 4.4, chloride 104, bicarb 26, BUN 15, creatinine 0.6, random blood sugar 76. IMPRESSION: A 57-year-old female with left leg deep venous thrombosis, right pulmonary embolism, peripheral neuropathy, and history of smoking and alcohol use in her past. PLAN: The plan at present is to continue this patient on the cardiac unit while maintaining fall precautions and continuing regular diet, IV heparin protocol, thiamine 50 mg p.o. daily, Pepcid 20 mg p.o. at bedtime, Neurontin - I have instructed the patient will be increased to 300 mg t.i.d., and she remains aware that she needs to have a nerve conduction velocity and EMG by neurology as an outpatient. She also continues with Coumadin bridging, today will receive a dose of 10 mg at 06:00 p.m. She is ordered to have dual nebulizers q.6 hours p.r.n. shortness of breath and has an order for Tylenol p.r.n. pain or fever. The patient will have repeat INR/PTT level, basic metabolic panel, and CBC in a.m. Ultimate plan will be for discharge to home when medically stable with cautious monitoring of INR as outpatient. All of the above were explained to the patient in detail. This was reviewed with her nurse, Cyndee Meadows. All questions were answered. Kena Lazo MD MTDE[facility]
[2017-09-03 07:23] LABS: HEMOGLOBIN 13.1 g/dL (12.0-16.0); MEAN CELL VOLUME 103.9 fl (80.0-105.0); MEAN CORPUSCULAR HEMOGLOBIN 34.3 pg (25.0-35.0); MEAN PLATELET VOLUME 9.2 fl (7.0-11.0); RBC 3.82 10^6/uL (3.5-6.1); RED CELL DISTRIBUTION WIDTH 14.7 % (11.5-14.5); WHITE BLOOD COUNT 6.7 10^3/ul (4.5-11.0)
[2017-09-03 07:30] LABS: INR 1.69 (0.93-1.08); PROTHROMBIN TIME 19.7 SECONDS (9.4-12.5)
[2017-09-03 07:44] LABS: BLOOD UREA NITROGEN 19 mg/dL (7-21); CALCIUM 10.3 mg/dL (8.4-10.5); GFR AFRICAN-AMERICAN > 60; GFR NON-AFRICAN AMERICAN > 60
--- NOTE | 2017-09-03 07:47 | CP.PCM.PN ---
Subjective - Date & Time of Evaluation Date of Evaluation: 09/03/17 Time of Evaluation: 07:44 - Subjective Subjective: Ms. Rice was seen and examined at the bedside. She is alert, oriented in all spheres. She denies any headache, blurred vision, lightheadedness, dizziness, nausea, or vomiting. She states of pain in her bilateral lower extremities is minimal and claims that her neurontin was increase yesterday. She is currently receiving Heparin drip.She denies any nose bleed, hematuria, and bruising. She is able to follow simple commands. She has bilateral lower extremities Lucas stockings. There was no untoward events overnight. Objective - Vital Signs/Intake and Output Vital Signs (last 24 hours): Temp Pulse Resp BP Pulse Ox 98.0 F 87 18 91/54 L 99 09/03/17 00:01 09/03/17 02:00 09/03/17 00:01 09/03/17 00:01 09/03/17 00:01 Intake and Output: 09/03/17 09/03/17 06:59 18:59 Intake Total 70 Balance 70 - Medications Medications: Current Medications Acetaminophen (Tylenol 325mg Tab) 650 mg PO Q6H PRN PRN Reason: Pain, moderate (4-7) Last Admin: 08/25/17 20:29 Dose: 650 mg Albuterol/Ipratropium (Duoneb 3 Mg/0.5 Mg (3 Ml) Ud) 3 ml IH [id number] PRN PRN Reason: Shortness of Breath Camphor/Menthol (Bengay) 0 gm TOP QID PRN PRN Reason: Pain, Mild (1-3) Last Admin: 08/25/17 20:35 Dose: 1 appl Famotidine (Pepcid) 20 mg PO HS MELY Last Admin: 09/02/17 22:35 Dose: 20 mg Gabapentin (Neurontin) 300 mg PO TID [facility] PRN Reason: Protocol Last Admin: 09/02/17 18:29 Dose: Not Given Heparin Sodium/Sodium Chloride (Heparin 27933 Units/250ml 1/2 Normal Saline) 25 ,000 units in 250 mls @ 9.438 mls/hr IV .Q24H PRN; Protocol; 18 UNITS/KG/HR PRN Reason: ADJUST RATE PER PROTOCOL Last Titration: 09/02/17 22:41 Dose: 17 units/kg/hr, 8.914 mls/hr Thiamine HCl (Vitamin B1 Tab) 50 mg PO DAILY [facility] Last Admin: 09/02/17 09:28 Dose: 50 mg Tramadol/Acetaminophen (Ultracet 37.5/325 Mg) 1 tab PO Q12 PRN PRN Reason: Pain, severe (8-10) Last Admin: 09/02/17 22:35 Dose: 1 tab Warfarin Sodium (Coumadin) 10 mg PO 1800 [facility] PRN Reason: Protocol Last Admin: 09/02/17 17:03 Dose: 10 mg - Labs Labs: 09/03/17 07:05 08/30/17 06:20 PT 19.7 SECONDS (9.4-12.5) H 09/03/17 07:05 INR 1.69 (0.93-1.08) H 09/03/17 07:05 APTT 62.0 Seconds (25.1-36.5) H 09/03/17 07:05 - Constitutional Appears: No Acute Distress - Head Exam Head Exam: NORMAL INSPECTION - Neurological Exam Neurological Exam: Alert, Awake, CN II-XII Intact, Oriented x3 Neuro motor strength exam: Left Upper Extremity: 5, Right Upper Extremity: 5, Left Lower Extremity: 5, Right Lower Extremity: 5 Additional comments: Neurological unchanged from previous examination. Assessment and Plan (1) Peripheral neuropathy Assessment & Plan: Case discussed with Dr. Carvalho, continue all current medical regimen. There is no new recommendations from neurology. Status: Chronic
[2017-09-03] MEDS: TraMADol/Apap 37.5/325 mg Tab PO PRN ×2 (10:14→22:17)
[2017-09-03] MEDS: Heparin25000 units/250ml 1/2NS 25,000 UNITS/250 ML BAG IV PRN (18:05)
[2017-09-04 07:54] LABS: PROTHROMBIN TIME 20.7 SECONDS (9.4-12.5)
[2017-09-04 07:55] LABS: INR 1.78 (0.93-1.08); PARTIAL THROMBOPLASTIN TIME 44.7 Seconds (25.1-36.5)
[2017-09-04] MEDS: TraMADol/Apap 37.5/325 mg Tab PO PRN ×2 (10:11→22:40)
[2017-09-04] MEDS: Heparin25000 units/250ml 1/2NS 25,000 UNITS/250 ML BAG IV PRN ×2 (10:17→20:37)
--- NOTE | 2017-09-04 23:20 | PN ---
DATE: 09/04/2017 SUBJECTIVE: This 57-year-old female was examined on the cardiac mahoney. Her case was reviewed in detail with herself, her nurse, Krystal Madsen, registered nurse and Dr. Koko Castillo, Cardiology. The patient remains with a subtherapeutic PT/INR on bridging Coumadin orders and IV heparin protocol. The patient is becoming more reconditioned daily. She is starting to ambulate better independently and denies any chest pain, shortness breath, fever, chills or hematemesis, hemoptysis or hematuria. She is in a normal sinus rhythm on the cardiac rehabilitation program director. PHYSICAL EXAMINATION: VITAL SIGNS: Temperature 97.9, respirations 20, pulse 89 and blood pressure 92/63 with a pulse ox of 98% room air. HEENT: Head: Normocephalic, atraumatic. Eyes: No icterus. Ears: Clear. Throat: Noninjected. NECK: Supple. HEART: Regular S1, S2. LUNGS: Clear. ABDOMEN: Soft. EXTREMITIES: No edema. SKIN: Without rash. NEUROLOGIC: Intact. PSYCHOLOGIC: Alert. VASCULAR: Legs warm to touch. LABORATORY DATA: White count 6700, hemoglobin 13.1, hematocrit 39.7, platelets 441,000. PT/INR 1.78, PTT 44.7. Sodium 138, K 4.4, chloride 99, bicarb 28, BUN 19, creatinine 0.6, random blood sugar 81. IMPRESSION: A 57-year-old female, left leg deep vein thrombosis, right lung pulmonary embolism, deconditioning, on IV heparin protocol and also with subtherapeutic PT/INR while being bridged with Coumadin 10 mg p.o. daily with history of peripheral neuropathy and deconditioning. PLAN: As discussed with the patient, nursing, neurology and Dr. Castillo from Cardiology will be to maintain this patient on the Cardiac Unit. She remains on fall precautions. She is tolerating regular diet and continues on thiamine 50 mg p.o. daily, Pepcid 20 mg p.o. at bedtime, Neurontin 300 mg p.o. t.i.d., IV heparin protocol, dual nebulizer q. 4 hours p.r.n. shortness of breath, Coumadin 10 mg p.o. daily with a PTT and INR ordered as outlined. Ultimate plan will be for discharge to home when INR is therapeutic with monitoring of outpatient laboratories and clinical progress. All of the above was discussed in detail with the patient, nursing, Neurology and Cardiology. All questions were answered. Kena Lazo MD [facility]
[2017-09-05 07:52] LABS: INR 1.97 (0.93-1.08); PARTIAL THROMBOPLASTIN TIME 58.8 Seconds (25.1-36.5)
[2017-09-05] MEDS: TraMADol/Apap 37.5/325 mg Tab PO PRN ×2 (10:51→22:30)
[2017-09-05] MEDS: Heparin25000 units/250ml 1/2NS 25,000 UNITS/250 ML BAG IV PRN ×2 (17:36→23:35)
--- NOTE | 2017-09-06 00:10 | PN ---
DATE: 09/05/2017 SUBJECTIVE: This 57-year-old female was examined on the cardiac unit. She is becoming stronger and she is more steady on her feet daily. She denies any headache, chest pain, shortness of breath, fever or chills and remains in a normal sinus rhythm on the secured entrance monitor. PHYSICAL EXAMINATION VITAL SIGNS: Temperature 97.8, respirations 20, pulse 83, blood pressure 95/62. Pulse ox 99% on room air. HEENT: Head; normocephalic, atraumatic. Eyes: No icterus. Ears: Clear. Throat: Noninjected. NECK: Supple. HEART: Regular. S1, S2. LUNGS: Clear. ABDOMEN: Soft. EXTREMITIES: No edema. SKIN: Without rash. NEUROLOGICAL: Unchanged. PSYCHOLOGICAL: Alert. VASCULAR: Legs warm to touch. LABORATORY DATA: White count 6700, hemoglobin 13.1, hematocrit 39.7, platelets 441,000. PT/INR 1.97, PTT 58.8. Sodium 138, K 4.4, chloride 99, bicarb 28, BUN 19, creatinine 0.6, random blood sugar 81. IMPRESSION: A 57-year-old female with new-onset left leg deep venous thrombosis, right pulmonary embolism, recent deconditioning, history of cigarette smoking, alcohol misuse, peripheral neuropathy, now with a subtherapeutic PT/INR on IV heparin protocol while being bridged with oral Coumadin. Plan is to continue the patient on the cardiac unit and remains on fall risk protocol on a soft bland diet with Pepcid 20 mg p.o. at bedtime, Neurontin 300 mg p.o. t.i.d., IV heparin and Coumadin 10 mg p.o. daily with orders for PT/INR in the a.m. Ultimate plan will be for discharge to home when INR is therapeutic over 2.0 with outpatient monitoring of her labs and patient to be scheduled for elective nerve conduction velocity, EMG studies with neurology and outpatient stress testing in the future. All of the above was discussed in detail with the patient and nursing. All questions were answered. Kena Lazo MD [facility] # [id number] MTDD
[2017-09-06 06:47] VITALS: O2SAT 99
--- NOTE | 2017-09-06 07:01 | CP.PCM.PN ---
Subjective - Date & Time of Evaluation Date of Evaluation: 09/06/17 Time of Evaluation: 06:58 - Subjective Subjective: Ms. Rice was seen and examined at the bedside. She is alert, oriented in all spheres. She denies any headache, dizziness, lightheadedness, nausea, or vomiting, but complains of continuous lower bilateral feet pain with pain scale 2/10. She further states of being discharge today. She is able to follow all commands. She remains with bilateral lower extremities terence stocking and heparin drip. There was no untoward events overnight. Objective - Vital Signs/Intake and Output Vital Signs (last 24 hours): Temp Pulse Resp BP Pulse Ox 98.3 F 82 18 81/53 L 99 09/06/17 06:00 09/06/17 06:00 09/06/17 06:00 09/06/17 06:00 09/06/17 06:00 Intake and Output: 09/05/17 09/06/17 18:59 06:59 Intake Total 1210 1270 Balance 1210 1270 - Medications Medications: Current Medications Famotidine (Pepcid) 20 mg PO HS [facility] Last Admin: 09/05/17 22:30 Dose: 20 mg Gabapentin (Neurontin) 300 mg PO TID [facility] PRN Reason: Protocol Last Admin: 09/05/17 17:32 Dose: 300 mg Heparin Sodium/Sodium Chloride (Heparin 47005 Units/250ml 1/2 Normal Saline) 25 ,000 units in 250 mls @ 9.438 mls/hr IV .Q24H PRN; Protocol; 18 UNITS/KG/HR PRN Reason: ADJUST RATE PER PROTOCOL Last Admin: 09/05/17 23:35 Dose: 16.78 units/kg/hr, 8.799 mls/hr Tramadol/Acetaminophen (Ultracet 37.5/325 Mg) 1 tab PO Q12 PRN PRN Reason: Pain, severe (8-10) Last Admin: 09/05/17 22:30 Dose: 1 tab Warfarin Sodium (Coumadin) 10 mg PO 1800 [facility] PRN Reason: Protocol Last Admin: 09/05/17 17:32 Dose: 10 mg - Labs Labs: 09/03/17 07:05 09/03/17 07:05 PT 23.0 SECONDS (9.4-12.5) H 09/05/17 06:30 INR 1.97 (0.93-1.08) H 09/05/17 06:30 APTT 71.5 Seconds (25.1-36.5) H 09/05/17 23:35 - Head Exam Head Exam: NORMAL INSPECTION - Neurological Exam Neurological Exam: Alert, Awake Neuro motor strength exam: Left Upper Extremity: 5, Right Upper Extremity: 5, Left Lower Extremity: 5, Right Lower Extremity: 5 Additional comments: Neurological unchanged from previous examination. Assessment and Plan (1) Peripheral neuropathy Assessment & Plan: Case discussed with Dr. Carvalho, continue all current medical regimen and to follow up with Dr. Lyle Hamilton for nerve conduction studies and EMG. Status: Chronic
[2017-09-06 07:27] LABS: INR 2.03 (0.93-1.08); PARTIAL THROMBOPLASTIN TIME 74.5 Seconds (25.1-36.5); PROTHROMBIN TIME 23.7 SECONDS (9.4-12.5)
--- NOTE | 2017-09-06 09:02 | PN ---
DATE: 09/03/2017 SUBJECTIVE: This 57-year-old female was examined at her bedside and her case was reviewed in detail with her nurse, Shawna. The patient remains in a normal sinus rhythm on the front desk monitor. She denies any fever, chills, chest pain, shortness of breath, hematemesis, hemoptysis or hematuria. She is on IV heparin with a subtherapeutic PT/INR while being bridged with oral Coumadin. This is necessary because of a left leg DVT and right leg pulmonary embolism. The patient is being followed by Dr. Castillo from Cardiology because of previous episode of tachycardia and 2-D echocardiogram was reviewed and is essentially unremarkable. She also has a history of peripheral neuropathy and is having her Neurontin dosage adjusted as well. At present, she is lying in bed, alert, oriented and denying any fever, chills, chest pain or shortness of breath. front desk monitor shows normal sinus rhythm. PHYSICAL EXAMINATION: VITAL SIGNS: temperature 98.2, respirations 18, pulse 86, blood pressure 95/60 with a pulse ox of 100% room air. HEENT: Head: Normocephalic, atraumatic. Eyes: No icterus. Ears: Clear. Throat: Noninjected. NECK: Supple. HEART: Regular S1, S2. LUNGS: Clear. ABDOMEN: Soft. EXTREMITIES: No edema. SKIN: Without rash. NEUROLOGIC: Intact. PSYCHOLOGIC: Alert. VASCULAR: Legs warm to touch. LABORATORY DATA: White count 6700, hemoglobin 13.1, hematocrit 39.7, platelets 441,000. PT/INR 1.69, PTT 62.0. Sodium 138, K 4.4, chloride 99, bicarb 28, BUN 19, creatinine 0.6, random blood sugar is 81. IMPRESSION: A 57-year-old female with left leg deep vein thrombosis, right lung pulmonary embolism, peripheral neuropathy, history of smoking and alcohol use as an outpatient, now with a subtherapeutic PT/INR while being bridged on Coumadin and IV heparin. PLAN: At present as discussed with the patient, nursing, Cardiology and Neurology, will be to continue Coumadin 10 mg p.o. daily while monitoring INR daily and holding Coumadin for any INR level greater than 3. She continues on IV heparin protocol as outlined, Neurontin has been increased to 300 mg p.o. t.i.d. and she is getting GI prophylaxis with Pepcid 20 mg p.o. daily. She continues on thiamine 50 mg p.o. daily. The patient will receive Tylenol p.r.n. pain or fever. She continues on a soft bland diet, fall precautions and the patient has been instructed to ambulate the cardiac unit with assistance. Ultimate plan will be for discharge to home and close monitoring of her coagulation profile as an outpatient. All the above was discussed in detail with the patient, nursing, Cardiology and Neurology. All questions were answered. Kena Lazo MD MTDD
[2017-09-06] MEDS: TraMADol/Apap 37.5/325 mg Tab PO PRN (09:25)
[2017-09-06 12:28] VITALS: BP 100/66; PULSE 105; RESP 20; TEMP 97.9
--- NOTE | 2017-09-07 13:06 | DS ---
FINAL DIAGNOSES: Left leg deep venous thrombosis, right lung pulmonary embolism, now with therapeutic PT/INR on oral Coumadin, peripheral neuropathy, history of smoking and alcohol misuse. DISPOSITION: Home. FOLLOWUP: In my office within 1 week for repeat INR, blood testing on oral Coumadin. Followup with Dr. Koko Castillo for elective stress test in his office to be arranged by him and also follow up with Dr. Hamilton of Neurology for an elective NCV/EMG nerve conduction study for additional evaluation of peripheral neuropathy. DISCHARGE MEDICATIONS: Coumadin 7.5 mg p.o. daily, Neurontin 300 mg p.o. t.i.d. and Pepcid 20 mg p.o. daily. SUMMARY: This 57-year-old female was admitted to the [facility] with a left leg DVT and right lung pulmonary embolism in the setting of tachycardia and hypotension, for which she was initially treated in intensive care with IV fluids and IV heparin. She was seen in consultation by Dr. Bobby Hernández from Pulmonary Critical Care and Dr. Koko Castillo from Cardiology and patient agreed to bridging with oral Coumadin for continued outpatient therapy and oral anticoagulation for the above. This was also discussed with Dr. Swapnil Black from Hematology/Oncology, who saw the patient and advised a course of 9-12 months of anticoagulation therapy, given her left leg DVT and right lung pulmonary embolism. Patient was also noted to have clinical peripheral neuropathy. She was seen in consultation by neurologist, Dr. Mil Carvalho. He recommended gabapentin, which has been slowly titrated in this patient and has advised the patient to have an outpatient NCV/EMG studies for further evaluation of her neuropathic complaints. At the time of discharge, the patient remains alert and oriented, ambulating independently and with no chest pain or shortness of breath. Vital signs were temperature 97.9, respirations 20, pulse 80, and blood pressure 100/66, with a pulse ox of 99% on room air. Labs showed white count 6700, hemoglobin 13.1, hematocrit 39.7, platelets 441,000. PT/INR was 2.03. Sodium 138, K 4.4, chloride 99, bicarb 28, BUN 19, creatinine 0.6, random blood sugar was 81. Previously all liver function testing was normal including bilirubin 0.6, AST 27, ALT 46, alk phos 95. Urinalysis was unremarkable. Hepatitis A, B, C serologies were negative. Echocardiogram ordered and reviewed by Dr. Castillo showed normal left ventricular function, left ventricle normal in size with mild concentric left ventricular hypertrophy, left ventricular ejection fraction within normal range and normal left ventricle segmental wall motion. Right ventricle was normal in size. Right ventricle systolic function was normal. No valvular pathology was noted. The patient had foot x-rays that were unremarkable and the patient will be monitored as an outpatient regarding all of the above. The patient was advised to follow up with Dr. Castillo, Dr. Hamilton from Neurology, myself and Dr. Black. She was also advised for any change in signs and symptoms to present directly to the [facility] ER. Disability paperwork was completed while the patient was hospitalized. All questions were answered. Kena Lazo MD
== END 2017-09-06 16:26 | disposition home or self-care (01) | DRG 299 ==
LOC: ED 18:34 → ERH 08-21 00:45 → CCU 08-21 03:02 → 3RSO 08-23 14:49
PROVIDERS: ADMIT Internal Medicine; ATTEND Internal Medicine
PROC: 3E033GC Introduction of Other Therapeutic Substance into Peripheral Vein, Percutaneous Approach (ICD-10-PCS; principal; 2017-08-21)
DX: I82.432 Acute embolism and thrombosis of left popliteal vein (principal); I82.442 Acute embolism and thrombosis of left tibial vein; I26.99 Other pulmonary embolism without acute cor pulmonale; E87.3 Alkalosis; E87.1 Hypo-osmolality and hyponatremia; G62.9 Polyneuropathy, unspecified; F17.210 Nicotine dependence, cigarettes, uncomplicated; E87.6 Hypokalemia; J44.9 Chronic obstructive pulmonary disease, unspecified; M19.90 Unspecified osteoarthritis, unspecified site

== ENCOUNTER 2018-07-20 11:56 | Inpatient (IN) | payer MEDICAID, OTHER ==
[2018-07-20 11:58] VITALS: BMI 15.4
[2018-07-20] MEDS ORDERED: Sodium Chloride 0.9% 1,000 ML IV STA ×3 (12:10→15:28)
[2018-07-20] MEDS ORDERED: Thiamine 100 mg/ml Inj IM STA (12:17)
--- NOTE | 2018-07-20 12:21 | ED PDOC ---
Arrival/HPI - General Chief Complaint: Altered Mental Status Time Seen by Provider: 07/20/18 11:57 Historian: Family (sister), EMS - Critical Care Critical Care Minutes: 60 minutes - History of Present Illness Narrative History of Present Illness (Text): 07/20/18 12:23 57 year old female, smoker, on blood thinners, whose past medical history includes asthma, and DVT presents to the emergency department brought in by EMS and sister, for altered mental status. Sister states she had not heard from the patient in the past 4 days, prompting her to break into her house when they found her lying unresponsive on the floor. EMS reports patient responds to pain and has a left sided gaze. HPI and ROS are limited due to patients altered mental status. PMD: Dr. Lazo Time/Duration: < week Symptom Course: Unchanged Activities at Onset: Light Context: Home Past Medical History - Provider Review Nursing Documentation Reviewed: Yes - Infectious Disease Hx of Infectious Diseases: None - Cardiac Hx Cardiac Disorders: No - Pulmonary Hx Respiratory Disorders: Yes Hx Asthma: Yes - Neurological Hx Neurological Disorder: No - HEENT Hx HEENT Disorder: No - Renal Hx Renal Disorder: No - Endocrine/Metabolic Hx Endocrine Disorders: No - Hematological/Oncological Other/Comment: DVT - Integumentary Hx Dermatological Disorder: No - Musculoskeletal/Rheumatological Hx Musculoskeletal Disorders: No Hx Falls: No - Gastrointestinal Hx Gastrointestinal Disorders: No - Genitourinary/Gynecological Hx Genitourinary Disorders: No - Psychiatric Hx Psychophysiologic Disorder: No Hx Substance Use: No Other/Comment: recently lost , decrease appetite, half pack smoker - Anesthesia Hx Anesthesia: No Family/Social History - Physician Review Nursing Documentation Reviewed: Yes Family/Social History: No Known Family HX Smoking Status: Light Smoker < 10 Cigarettes Daily Hx Alcohol Use: Yes Hx Substance Use: No Allergies/Home Meds Allergies/Adverse Reactions: Allergies No Known Allergies Allergy (Verified 07/20/18 16:33) Review of Systems - Review of Systems Systems not reviewed;Unavailable: Altered Mental Status Physical Exam - Physical Exam Narrative Physical Exam (Text): 07/20/18 12:20 Constitutional: Lethargic. Head: Normocephalic. R parietal wound, not actively bleeding. Eyes: Constricted pupils. ENT: Dry mucous membranes. Neck: Supple. Cardiovascular: Mildly bradycardic rate. Chest: No tenderness. Respiratory: Clear to auscultation bilaterally. GI: Soft. Nontender. Nondistended. Back: No stepoffs. Musculoskeletal: No swelling of extremities. Skin: Skin cold. Pressure-like erythema to R sided body. Neurologic: Moving bilateral arms spontaneously. responds to withdrawal to noxious stimuli. Physical Exam Limitations: Altered Mental Status Vital Signs Reviewed: Yes Temperature: Hypothermic Blood Pressure: Hypertensive Pulse: Bradycardic Respiratory Rate: Normal Pain Distress: None Mental Status: Positive for: Lethargic Finger Stick Blood Glucose: 123 Medical Decision Making ED Course and Treatment: 07/20/18 12:20 Impression: 57 year old female who presents to the emergency department for AMS. Differential Diagnosis included but are not limited to: sepsis hypothermia stroke drug overdose rhabdomyolysis wernicke intracranial hemorrhage Plan: -- BBK -- VBG -- Head CT w/o contrast -- EKG -- Labs -- Cardiac enzymes -- Chest X-ray -- Warm IV Fluids -- Eri Hugger -- Vitamin B1 Inj -- Blood Culture -- Urine Culture -- Urinary Catheter -- Urinalysis -- Reassess and disposition Prior Visits: Notes and results from previous visits were reviewed. Progress Notes: 07/20/18 13:28 EKG reviewed, shows: NSR at 56 bpm. poor baseline. possible Canales wave. 07/20/18 13:[address] Lazo, PMD, agrees with plan and management. 07/20/18 13:53 Chest X-ray reviewed, shows: IMPRESSION: No active disease. 07/20/18 15:36 CT of abdomen and Pelvis reviewed, shows: IMPRESSION: Gallbladder is filled with dense sludge. There is some pericholecystic fluid. Possible cholecystitis. There is mild diffuse swelling of the pancreas when compared to the study from 2017. There is also some edema in the fat planes around the pancreatic head. Findings are suspicious for pancreatitis especially given the history of elevated lipase. Mild mural thickening throughout the colon. Possible colitis Head CT reviewed, shows: IMPRESSION: No acute hemorrhage. ICU accepts patient to ICU. Dr. Lazo accepts to her service. - Lab Interpretations I have reviewed the lab results: Yes - RAD Interpretation Radiology Orders: 07/20/18 12:07 HEAD W/O CONTRAST [CT] Stat CHEST PORTABLE [RAD] Stat - EKG Interpretation Interpreted by ED Physician: Yes Type: 12 lead EKG - Medication Orders Current Medication Orders: Sodium Chloride (Sodium Chloride 0.9%) 1,000 mls @ 999 mls/hr IV .Q1H1M STA Stop: 07/20/18 13:10 Thiamine HCl (Vitamin B1 Inj) 100 mg IM STAT STA Stop: 07/20/18 12:18 - Procedure PROCEDURE NOTE (Text): 07/20/18 12:46 PROCEDURE: INTUBATION Performed by the emergency provider Time: 12:40 Consent: consent was precluded by the urgency of the procedure and the patient condition. Timeout: A timeout to verify the correct patient, procedure, and site was performed. Indication: Airway protection Pre-oxygenation: [id number] with nasal cannula Medications: Etomidate 10mg and latasha 40mg. See MAR for details. ETT Size: 7.0 Confirmation: Cords directly visualized as tube passed, good bilateral breath sounds, positive CO2 detector color change, tube fogging, adequate chest rise, and absence of gastric sounds,. ETT Secured: The cuff was inflated and the tube was secured appropriately at a distance of 20cm at the lip. Post-Procedure: There were no immediate complications. CXR Confirmation: {Yes} - Scribe Statement The provider has reviewed the documentation as recorded by the Scribe Areli Cm Provider Scribe Attestation: All medical record entries made by the Scribe were at my direction and personally dictated by me. I have reviewed the chart and agree that the record accurately reflects my personal performance of the history, physical exam, medical decision making, and the department course for this patient. I have also personally directed, reviewed, and agree with the discharge instructions and disposition. Disposition/Present on Arrival - Present on Arrival Any Indicators Present on Arrival: No History of DVT/PE: No History of Uncontrolled Diabetes: No Urinary Catheter: No History of Decub. Ulcer: No History Surgical Site Infection Following: None - Disposition Have Diagnosis and Disposition been Completed?: Yes Diagnosis: Hypothermia, Altered mental status, Pancreatitis Disposition: HOSPITALIZED Disposition Time: 13:53 Patient Plan: Admission, ICU Condition: CRITICAL
[2018-07-20 12:26] LABS: BASO # 0.02 K/mm3 (0.0-2.0); BASO % 0.1 % (0.0-3.0); EOS % 0.1 % (1.5-5.0); GRAN # 15.02 (1.4-6.5); GRAN % 85.2 % (50.0-68.0); HEMOGLOBIN 16.2 g/dL (12.0-16.0); LYMPH # 1.6 (1.2-3.4); LYMPH % 9.2 % (22.0-35.0); MEAN CELL VOLUME 95.5 fl (80.0-105.0); MEAN CORPUSCULAR HEMOGLOBIN 33.4 pg (25.0-35.0); MEAN PLATELET VOLUME 12.6 fl (7.0-11.0); MONO % 5.4 % (1.0-6.0); RBC 4.85 10^6/uL (3.5-6.1); RED CELL DISTRIBUTION WIDTH 15.1 % (11.5-14.5); WHITE BLOOD COUNT 17.7 10^3/uL (4.5-11.0)
[2018-07-20 12:27] LABS: VENOUS BLOOD GAS BASE EXCESS -11.2 mmol/L (0.0-2.0); VENOUS BLOOD GAS PO2 72 mm/Hg (30-55); VENOUS BLOOD PH 7.26 (7.32-7.43)
[2018-07-20] MEDS ORDERED: Etomidate 20 mg/10ml Inj IV ONE (12:30)
[2018-07-20 12:36] LABS: ALB/GLOB RATIO 1.3 (1.1-1.8); ALBUMIN 4.1 g/dL (3.0-4.8); CALCIUM 10.1 mg/dL (8.4-10.5)
[2018-07-20] MEDS ORDERED: Rocuronium 10 mg/ml (5 ml) ONE (12:40)
[2018-07-20] MEDS ORDERED: Rocuronium 10 mg/ml (5 ml) IVP STA (12:44)
[2018-07-20] MEDS ORDERED: Etomidate 20 mg/10ml Inj IVP STA (12:44)
[2018-07-20 12:47] LABS: TROPONIN I 0.02 ng/mL
[2018-07-20] MEDS ORDERED: SODIUM CHLORIDE 0.9% IV PRN (13:25)
[2018-07-20] MEDS ORDERED: LORAZEPAM IV PRN (13:25)
--- NOTE | 2018-07-20 13:48 | RAD ---
Date of service: 07/20/2018 HISTORY: ams COMPARISON: No prior. FINDINGS: LUNGS: No active pulmonary disease. PLEURA: No significant pleural effusion identified, no pneumothorax apparent. CARDIOVASCULAR: No aortic atherosclerotic calcification present. Normal cardiac size. No pulmonary vascular congestion. OSSEOUS STRUCTURES: No significant abnormalities. VISUALIZED UPPER ABDOMEN: Normal. OTHER FINDINGS: Endotracheal tube in satisfactory position IMPRESSION: No active disease.
--- NOTE | 2018-07-20 13:49 | CP.PCM.CON ---
<Juan Carlos Qureshi - Last Filed: 07/20/18 17:47> History of Present Illness - History of Present Illness History of Present Illness: Juan Carlos Qureshi, PGY1 ICU consult note for Dr. Dover Patient is a 57 y/o F with PMHx asthma and DVT who presented to the ED (brought in by EMS and sister) for altered mental status. Sister states she had not heard from the patient in the past 4 days; this prompter her to break into her house when they found her lying unresponsive on the floor. In the ED, Vitals showed HR 52, BP 86/54, RR 17, SaO2 100%. Temperature was unable to be recorded as patient was severely hypothermic (Temp < 80). Multiple attempts to obtain temperature resulted in failure; patient was placed on Eri-Hugger for her hypothermia. In response to the hypotension, patient was given 3 L of NS IVF, however, her blood pressure was not being adequately resuscitated. Patient was unresponsive in ED (GCS < 8), as a result, she was intubated to protect her airway. ED ordered appropriate labs, Head CT, and CXR. ICU was consulted for evaluation. Patient seen at ED; family member was not present at bedside. She was not awake, alert, or following commands. ET tube was in place. Vent settings showed PRVC 400/16/5/100%. BP during time of interview was 85/52. An appropriate ROS was unable to be obtained due to patients critical condition and altered mental status. She was admitted previously for a left leg DVT and PE for which she was placed on coumadin. As per prior charting: PMHx: asthma, DVT PSHx: unknown due to patient's AMS Meds: coumadin, gabapentin, famotidine Allergies:NKDA FamHx: non-contributory SocialHx: half pack smoker, social drinker Review of Systems - Review of Systems Systems not reviewed;Unavailable: Altered Mental Status, Intubated Past Patient History - Infectious Disease Hx of Infectious Diseases: None - Past Social History Smoking Status: Light Smoker < 10 Cigarettes Daily - CARDIAC Hx Cardiac Disorders: No - PULMONARY Hx Respiratory Disorders: Yes Hx Asthma: Yes - NEUROLOGICAL Hx Neurological Disorder: No - HEENT Hx HEENT Problems: No - RENAL Hx Chronic Kidney Disease: No - ENDOCRINE/METABOLIC Hx Endocrine Disorders: No - HEMATOLOGICAL/ONCOLOGICAL Other/Comment: DVT - INTEGUMENTARY Hx Dermatological Problems: No - MUSCULOSKELETAL/RHEUMATOLOGICAL Hx Musculoskeletal Disorders: No Hx Falls: No - GASTROINTESTINAL Hx Gastrointestinal Disorders: No - GENITOURINARY/GYNECOLOGICAL Hx Genitourinary Disorders: No - PSYCHIATRIC Hx Psychophysiologic Disorder: No Hx Substance Use: No Other/Comment: recently lost , decrease appetite, half pack smoker - SURGICAL HISTORY Hx Surgeries: No - ANESTHESIA Hx Anesthesia: No Meds Allergies/Adverse Reactions: Allergies Allergy/AdvReac Type Severity Reaction Status Date / Time No Known Allergies Allergy Verified 07/20/18 16:33 - Medications Medications: Current Medications Lorazepam 100 mg/ Sodium (Chloride) 100 mls @ 0.41 mls/hr IV .Q24H PRN; Protocol PRN Reason: TITRATE PER MD ORDER Physical Exam - Constitutional Appears: Other (Unresponsive) - Head Exam Additional comments: Bruising noted at the scalp - Eye Exam Eye Exam: absent: Normal appearance Pupil Exam: Irregular. absent: PERRL Additional comments: Pinpoint pupils with lateral deviation - ENT Exam ENT Exam: Mucous Membranes Moist - Respiratory Exam Respiratory Exam: Clear to Auscultation Bilateral. absent: Accessory Muscle Use, Rales, Rhonchi, Wheezes - Cardiovascular Exam Cardiovascular Exam: RRR, +S1, +S2 - GI/Abdominal Exam GI & Abdominal Exam: Normal Bowel Sounds, Soft. absent: Guarding, Rebound, Rigid - Extremities Exam Extremities exam: Positive for: pedal pulses present Additional comments: Significant bruising noted at the patient's right pelvis and right lateral maleoli. - Back Exam Back exam: absent: NORMAL INSPECTION Additional comments: Bruising noted on the thoracic region. - Skin Additional comments: Bruising noted at the patient's right pelvis, lateral maleoli, thoracic region, and scalp. Worsening Stage I/II pressure ulcer noted at the buttocks. Results - Vital Signs Recent Vital Signs: Last Vital Signs Temp Pulse 53 L 07/20/18 13:39 Resp 16 07/20/18 13:39 BP 80/54 L 07/20/18 13:39 Pulse Ox 100 07/20/18 13:39 - Labs Result Diagrams: 07/20/18 12:08 07/20/18 12:08 Labs: Laboratory Results - last 24 hr 07/20/18 07/20/18 07/20/18 12:08 12:08 12:08 WBC 17.7 H RBC 4.85 Hgb 16.2 H D Hct 46.3 MCV 95.5 D MCH 33.4 MCHC 35.0 RDW 15.1 H Plt Count 153 MPV 12.6 H Gran % 85.2 H Lymph % (Auto) 9.2 L [place] % (Auto) 5.4 Eos % (Auto) 0.1 L Baso % (Auto) 0.1 Gran # 15.02 H Lymph # (Auto) 1.6 [place] # (Auto) 1.0 H Eos # (Auto) 0.0 Baso # (Auto) 0.02 pO2 72 H VBG pH 7.26 L VBG pCO2 33.0 L VBG HCO3 14.8 L VBG Total CO2 15.8 L VBG O2 Sat (Calc) 94.2 H VBG Base Excess -11.2 L VBG Potassium 6.4 H* Sodium 135.0 138 Chloride 90.0 L 92 L Glucose 149 H Lactate 2.6 H FiO2 21.0 Potassium 3.9 Carbon Dioxide 14 L Anion Gap 36 H BUN 35 H Creatinine 2.0 H Est GFR ( Amer) 31 Est GFR (Non-Af Amer) 26 Random Glucose 139 H Calcium 10.1 Total Bilirubin 0.8 AST 29 ALT 18 Alkaline Phosphatase 92 Total Creatine Kinase 200 Troponin I 0.02 D Total Protein 7.2 Albumin 4.1 Globulin 3.1 Albumin/Globulin Ratio 1.3 Lipase 2184 H Beta HCG, Quant Venous Blood Potassium 6.4 H* Alcohol, Quantitative 07/20/18 12:08 WBC RBC Hgb Hct MCV MCH MCHC RDW Plt Count MPV Gran % Lymph % (Auto) [place] % (Auto) Eos % (Auto) Baso % (Auto) Gran # Lymph # (Auto) [place] # (Auto) Eos # (Auto) Baso # (Auto) pO2 VBG pH VBG pCO2 VBG HCO3 VBG Total CO2 VBG O2 Sat (Calc) VBG Base Excess VBG Potassium Sodium Chloride Glucose Lactate FiO2 Potassium Carbon Dioxide Anion Gap BUN Creatinine Est GFR ( Amer) Est GFR (Non-Af Amer) Random Glucose Calcium Total Bilirubin AST ALT Alkaline Phosphatase Total Creatine Kinase Troponin I Total Protein Albumin Globulin Albumin/Globulin Ratio Lipase Beta HCG, Quant < 2.39 Venous Blood Potassium Alcohol, Quantitative < 10 Assessment & Plan - Assessment and Plan (Free Text) Assessment: Patient is a 57 y/o F with PMHx asthma, 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 Patient was found to be hypothermic on presentation and intubated as a result of unresponsiveness. ICU consulted for management. Plan: Neuro: - AAOx0; Due to low GCS, patient intubated in the ED - CT Head: no intracranial hemorrhage - Started on ASA 81mg for stroke ppx - Severe Hypothermia (Temp < 80) in the setting of shock - Eri-hugger, warm saline IVF, Warm Gastric Lavage via NG tube - Neurology consulted for stroke workup and possible seizures - Keterryra - Versed gtt - EEG - Patient will need CTA head and MRI for further eval Cardio: - Distributive Shock vs Hypovolemic Shock - Distributive shock may be neurogenic or septic in nature - central line was placed in the R-IJ due to shock - Started on levophed and fluids for appropriate blood pressure management - Maintain MAP > 65 - EKG shows bradycardia likely due to hypothermia - Given wbc 17.7, SIRS criteria met, patient started on broad spectrum antibiotics, vancomycin and zosyn - f/u blood cx, urine cx results - CXR: no acute cardiopulmonary pathology - troponin negative - Echo with bubble study to evaluate for PFO - Previous Echo (08/2017): EF 65% with LVH. No other gross abnormalities. Pulm: - Intubated on mechanical ventilation; c/w low tidal volume ventilation to prevent ventilator associated lung injury - Maintain SaO2 > 92% - Maintain HoB > 35 degrees, sedation vacation, weaning trials, oral care. GI: - Lipase elevated - CT A/P ordered - OG tube placed - GI ppx with PTX Renal: - AUBREY likely intra-renal, resulting in RTA metabolic acidosis - BUN/Cr is 35/2.0 (Baseline Cr is 0.6) - obtain FeNa - CK is not elevated, rhabdo less likely - Monitor ins/outs ID: - leukocytosis - procalcitonin - started on vanc and zosyn broad spectrum antibiotics - SIRS criteria met Endo: - TSH - T4 - Consider myxedema coma - Maintain euglycemia Heme: - Subtherapeutic INR given patient is on coumadin - Started on heparin gtt - Patient has Hx of DVT/PE - DVT ppx with SCDs Dispo: Monitor patient in the ICU. Case was discussed and reviewed with Attending Physician, Dr. Dover <Jonny Dover - Last Filed: 07/21/18 12:50> Meds - Medications Medications: Current Medications Aspirin (Aspirin) 325 mg PO DAILY [facility] Hydrocortisone Sodium Succinate (Solu-Cortef) 50 mg IVP Q6H MELY Last Admin: 07/21/18 11:55 Dose: 50 mg NOREPINEPHRINE BIT/0.9 % NACL (Levophed 4 Mg/ 250 Ml Ns Premixed) 4 mg in 250 mls @ 15 mls/hr IV .[id number] PRN; Protocol PRN Reason: TITRATE PER MD ORDER Last Admin: 07/21/18 09:17 Dose: 12 mcg/min, 45 mls/hr Levetiracetam (Keppra 500mg Ivpb) 500 mg in 100 mls @ 400 mls/hr IV Q12 MELY Last Admin: 07/21/18 09:20 Dose: 400 mls/hr Midazolam 100 mg/100ml in NS (Midazolam 100 Mg/100ml In Ns) 100 mg in 100 mls @ 1 mls/hr IV .Q24H PRN; Protocol PRN Reason: Sedation Heparin Sodium/Sodium Chloride (Heparin 10846 Units/250ml 1/2 Normal Saline) 25,000 units in 250 mls @ 7.348 mls/hr IV .Q24H PRN; Protocol PRN Reason: ADJUST RATE PER PROTOCOL Last Titration: 07/21/18 12:30 Dose: 12 units/kg/hr, 4.899 mls/hr Potassium Chloride (Potassium Chloride 20 Meq/100 Ml) 20 meq in 100 mls @ 50 mls/hr IVPB Q2H MELY Stop: 07/21/18 13:29 Last Admin: 07/21/18 11:30 Dose: 50 mls/hr Lactated Ringer's 1,000 ml/ IV (SUPPLIES) 1,000 mls @ 150 mls/hr IV ONCE ONE Stop: 07/21/18 16:11 Vasopressin 20 units/ Dextrose 101 mls @ 9.09 mls/hr IV .Q11H7M [facility]; Protocol Last Admin: 07/21/18 11:20 Dose: 9.09 mls/hr Piperacillin Sod/Tazobactam Sod (Zosyn 3.375 In Ns 100ml) 100 mls @ 25 mls/hr IVPB Q12 MELY; Protocol Stop: 07/30/18 12:21 Pantoprazole Sodium (Protonix Inj) 40 mg IVP Q12 MELY Last Admin: 07/21/18 09:20 Dose: 40 mg Results - Vital Signs Recent Vital Signs: Last Vital Signs Temp 98.1 F 07/21/18 06:59 Pulse 109 H 07/21/18 06:59 Resp 24 07/21/18 07:46 BP 111/57 L 07/21/18 11:20 Pulse Ox 98 07/21/18 06:00 - Labs Result Diagrams: 07/21/18 05:00 07/21/18 06:00 Labs: Laboratory Results - last 24 hr 07/20/18 07/20/18 07/20/18 12:08 14:10 16:01 WBC RBC Hgb Hct MCV MCH MCHC RDW Plt Count MPV PT 11.3 INR 0.99 APTT 34.6 pCO2 23 L pO2 689.0 H HCO3 9.9 L* ABG pH 7.24 L ABG Total CO2 10.6 L ABG O2 Saturation 100.5 H ABG O2 Content ABG Base Excess -15.6 L ABG Hemoglobin ABG Carboxyhemoglobin POC ABG HHb (Measured) ABG Methemoglobin ABG O2 Capacity ABG Potassium 1.4 L* VBG pH VBG pCO2 VBG HCO3 VBG Total CO2 VBG O2 Sat (Calc) VBG Base Excess VBG Potassium Hgb O2 Saturation Sodium 142.0 Chloride 111.0 H Glucose 106 H Lactate 1.1 Mechanical Rate 16 FiO2 100.0 Tidal Volume 400 PEEP 5 Potassium Carbon Dioxide Anion Gap BUN Creatinine Est GFR ( Amer) Est GFR (Non-Af Amer) Random Glucose Calcium Phosphorus Magnesium Total Bilirubin AST ALT Alkaline Phosphatase Lactate Dehydrogenase Troponin I Total Protein Albumin Globulin Albumin/Globulin Ratio Triglycerides Cholesterol LDL Cholesterol Direct HDL Cholesterol Lipase Free T4 TSH 3rd Generation Prolactin Beta HCG, Quant < 2.39 Arterial Blood Potassium 1.4 L* Venous Blood Potassium Urine Color Urine Appearance Urine pH Ur Specific [place] Urine Protein Urine Glucose (UA) Urine Ketones Urine Blood Urine Nitrate Urine Bilirubin Urine Urobilinogen Ur Leukocyte Esterase Urine RBC Urine WBC Ur Epithelial Cells Amorphous Sediment Urine Bacteria Hyaline Casts Fine Granular Casts Urine Opiates Screen Urine Methadone Screen Ur Barbiturates Screen Ur Phencyclidine Scrn Ur Amphetamines Screen U Benzodiazepines Scrn U Oth Cocaine Metabols U Cannabinoids Screen Blood Type Blood Type Confirm Antibody Screen BBK History Checked 07/20/18 07/20/18 07/20/18 16:01 16:01 16:01 WBC RBC Hgb Hct MCV MCH MCHC RDW Plt Count MPV PT INR APTT pCO2 pO2 215 H HCO3 ABG pH ABG Total CO2 ABG O2 Saturation ABG O2 Content ABG Base Excess ABG Hemoglobin ABG Carboxyhemoglobin POC ABG HHb (Measured) ABG Methemoglobin ABG O2 Capacity ABG Potassium VBG pH 7.23 L VBG pCO2 22.0 L VBG HCO3 9.2 L VBG Total CO2 9.9 L VBG O2 Sat (Calc) 99.9 H VBG Base Excess -16.4 L VBG Potassium 1.7 L* Hgb O2 Saturation Sodium 145.0 Chloride 108.0 H Glucose 98 Lactate 1.2 Mechanical Rate FiO2 21.0 Tidal Volume PEEP Potassium Carbon Dioxide Anion Gap BUN Creatinine Est GFR ( Amer) Est GFR (Non-Af Amer) Random Glucose Calcium Phosphorus Magnesium Total Bilirubin AST ALT Alkaline Phosphatase Lactate Dehydrogenase Troponin I Total Protein Albumin Globulin Albumin/Globulin Ratio Triglycerides Cholesterol LDL Cholesterol Direct HDL Cholesterol Lipase Free T4 1.51 TSH 3rd Generation 5.08 H Prolactin 98.1 H Beta HCG, Quant Arterial Blood Potassium Venous Blood Potassium 1.7 L* Urine Color Urine Appearance Urine pH Ur Specific [place] Urine Protein Urine Glucose (UA) Urine Ketones Urine Blood Urine Nitrate Urine Bilirubin Urine Urobilinogen Ur Leukocyte Esterase Urine RBC Urine WBC Ur Epithelial Cells Amorphous Sediment Urine Bacteria Hyaline Casts Fine Granular Casts Urine Opiates Screen Urine Methadone Screen Ur Barbiturates Screen Ur Phencyclidine Scrn Ur Amphetamines Screen U Benzodiazepines Scrn U Oth Cocaine Metabols U Cannabinoids Screen Blood Type Blood Type Confirm Antibody Screen BBK History Checked 07/20/18 07/21/18 07/21/18 21:33 02:00 05:00 WBC 15.2 H RBC 3.56 Hgb 11.5 L D Hct 33.8 L MCV 94.9 MCH 32.3 MCHC 34.0 RDW 15.6 H Plt Count 172 MPV 11.5 H PT INR APTT 130.0 H* pCO2 pO2 HCO3 ABG pH ABG Total CO2 ABG O2 Saturation ABG O2 Content ABG Base Excess ABG Hemoglobin ABG Carboxyhemoglobin POC ABG HHb (Measured) ABG Methemoglobin ABG O2 Capacity ABG Potassium VBG pH VBG pCO2 VBG HCO3 VBG Total CO2 VBG O2 Sat (Calc) VBG Base Excess VBG Potassium Hgb O2 Saturation Sodium 144 Chloride 115 H D Glucose Lactate Mechanical Rate FiO2 Tidal Volume PEEP Potassium 2.0 L* D Carbon Dioxide 12 L Anion Gap 20 BUN 27 H Creatinine 1.4 H Est GFR ( Amer) 47 Est GFR (Non-Af Amer) 39 Random Glucose 80 Calcium 7.1 L Phosphorus 5.0 H Magnesium 1.3 L Total Bilirubin 0.4 AST 33 ALT 26 Alkaline Phosphatase 69 Lactate Dehydrogenase Troponin I 0.01 D Total Protein 4.6 L Albumin 2.3 L Globulin 2.3 Albumin/Globulin Ratio 1.0 L Triglycerides Cholesterol LDL Cholesterol Direct HDL Cholesterol Lipase Free T4 TSH 3rd Generation Prolactin Beta HCG, Quant Arterial Blood Potassium Venous Blood Potassium Urine Color Urine Appearance Urine pH Ur Specific [place] Urine Protein Urine Glucose (UA) Urine Ketones Urine Blood Urine Nitrate Urine Bilirubin Urine Urobilinogen Ur Leukocyte Esterase Urine RBC Urine WBC Ur Epithelial Cells Amorphous Sediment Urine Bacteria Hyaline Casts Fine Granular Casts Urine Opiates Screen Urine Methadone Screen Ur Barbiturates Screen Ur Phencyclidine Scrn Ur Amphetamines Screen U Benzodiazepines Scrn U Oth Cocaine Metabols U Cannabinoids Screen Blood Type Blood Type Confirm Antibody Screen BBK History Checked 07/21/18 07/21/18 07/21/18 05:45 06:00 06:00 WBC RBC Hgb Hct MCV MCH MCHC RDW Plt Count MPV PT INR APTT pCO2 23 L pO2 52.0 L HCO3 10.3 L ABG pH 7.26 L ABG Total CO2 11.0 L ABG O2 Saturation 87.3 L ABG O2 Content ABG Base Excess -14.8 L ABG Hemoglobin ABG Carboxyhemoglobin POC ABG HHb (Measured) ABG Methemoglobin ABG O2 Capacity ABG Potassium 2.9 L VBG pH VBG pCO2 VBG HCO3 VBG Total CO2 VBG O2 Sat (Calc) VBG Base Excess VBG Potassium Hgb O2 Saturation Sodium 148.0 Chloride 115.0 H Glucose 64 L Lactate 1.4 Mechanical Rate FiO2 50.0 Tidal Volume PEEP Potassium Carbon Dioxide Anion Gap BUN Creatinine Est GFR ( Amer) Est GFR (Non-Af Amer) Random Glucose Calcium Phosphorus Magnesium Total Bilirubin AST ALT Alkaline Phosphatase Lactate Dehydrogenase Troponin I Total Protein Albumin Globulin Albumin/Globulin Ratio Triglycerides Cholesterol LDL Cholesterol Direct HDL Cholesterol Lipase Free T4 TSH 3rd Generation Prolactin Beta HCG, Quant Arterial Blood Potassium 2.9 L Venous Blood Potassium Urine Color Urine Appearance Urine pH Ur Specific [place] Urine Protein Urine Glucose (UA) Urine Ketones Urine Blood Urine Nitrate Urine Bilirubin Urine Urobilinogen Ur Leukocyte Esterase Urine RBC Urine WBC Ur Epithelial Cells Amorphous Sediment Urine Bacteria Hyaline Casts Fine Granular Casts Urine Opiates Screen Negative Urine Methadone Screen Negative Ur Barbiturates Screen Negative Ur Phencyclidine Scrn Negative Ur Amphetamines Screen Negative U Benzodiazepines Scrn Negative U Oth Cocaine Metabols Negative U Cannabinoids Screen Positive H Blood Type O POSITIVE Blood Type Confirm Antibody Screen Negative BBK History Checked No verified bt 07/21/18 07/21/18 07/21/18 06:00 06:00 06:30 WBC RBC Hgb Hct MCV MCH MCHC RDW Plt Count MPV PT INR APTT pCO2 pO2 HCO3 ABG pH ABG Total CO2 ABG O2 Saturation ABG O2 Content ABG Base Excess ABG Hemoglobin ABG Carboxyhemoglobin POC ABG HHb (Measured) ABG Methemoglobin ABG O2 Capacity ABG Potassium VBG pH VBG pCO2 VBG HCO3 VBG Total CO2 VBG O2 Sat (Calc) VBG Base Excess VBG Potassium Hgb O2 Saturation Sodium 145 Chloride 118 H Glucose Lactate Mechanical Rate FiO2 Tidal Volume PEEP Potassium 3.1 L Carbon Dioxide 12 L Anion Gap 18 BUN 25 H Creatinine 1.5 H Est GFR ( Amer) 43 Est GFR (Non-Af Amer) 36 Random Glucose 77 Calcium 6.9 L* Phosphorus 4.1 Magnesium 2.0 Total Bilirubin 0.4 AST 35 ALT 32 Alkaline Phosphatase 63 Lactate Dehydrogenase Troponin I Total Protein 4.7 L Albumin 2.3 L Globulin 2.4 Albumin/Globulin Ratio 0.9 L Triglycerides 92 Cholesterol 100 L LDL Cholesterol Direct 43 HDL Cholesterol 59 Lipase 5554 H Free T4 TSH 3rd Generation Prolactin Beta HCG, Quant Arterial Blood Potassium Venous Blood Potassium Urine Color Yellow Urine Appearance Sl cloudy Urine pH 6.0 Ur Specific [place] 1.025 Urine Protein 30 H Urine Glucose (UA) Negative Urine Ketones 15 H Urine Blood Moderate H Urine Nitrate Negative Urine Bilirubin Large H Urine Urobilinogen 0.2 Ur Leukocyte Esterase Small H Urine RBC 2 - 5 Urine WBC 5 - 10 Ur Epithelial Cells 1 - 3 Amorphous Sediment Few Urine Bacteria Mod Hyaline Casts 1-3 Fine Granular Casts 2 - 5 Urine Opiates Screen Urine Methadone Screen Ur Barbiturates Screen Ur Phencyclidine Scrn Ur Amphetamines Screen U Benzodiazepines Scrn U Oth Cocaine Metabols U Cannabinoids Screen Blood Type Blood Type Confirm Antibody Screen BBK History Checked 07/21/18 07/21/18 07/21/18 06:30 06:45 10:45 WBC RBC Hgb Hct MCV MCH MCHC RDW Plt Count MPV PT INR APTT 181.4 H* pCO2 pO2 HCO3 ABG pH ABG Total CO2 ABG O2 Saturation ABG O2 Content ABG Base Excess ABG Hemoglobin ABG Carboxyhemoglobin POC ABG HHb (Measured) ABG Methemoglobin ABG O2 Capacity ABG Potassium VBG pH VBG pCO2 VBG HCO3 VBG Total CO2 VBG O2 Sat (Calc) VBG Base Excess VBG Potassium Hgb O2 Saturation Sodium Chloride Glucose Lactate Mechanical Rate FiO2 Tidal Volume PEEP Potassium Carbon Dioxide Anion Gap BUN Creatinine Est GFR ( Amer) Est GFR (Non-Af Amer) Random Glucose Calcium Phosphorus Magnesium Total Bilirubin AST ALT Alkaline Phosphatase Lactate Dehydrogenase 907 H Troponin I Total Protein Albumin Globulin Albumin/Globulin Ratio Triglycerides Cholesterol LDL Cholesterol Direct HDL Cholesterol Lipase Free T4 TSH 3rd Generation Prolactin Beta HCG, Quant Arterial Blood Potassium Venous Blood Potassium Urine Color Urine Appearance Urine pH Ur Specific [place] Urine Protein Urine Glucose (UA) Urine Ketones Urine Blood Urine Nitrate Urine Bilirubin Urine Urobilinogen Ur Leukocyte Esterase Urine RBC Urine WBC Ur Epithelial Cells Amorphous Sediment Urine Bacteria Hyaline Casts Fine Granular Casts Urine Opiates Screen Urine Methadone Screen Ur Barbiturates Screen Ur Phencyclidine Scrn Ur Amphetamines Screen U Benzodiazepines Scrn U Oth Cocaine Metabols U Cannabinoids Screen Blood Type Blood Type Confirm O POSITIVE Antibody Screen BBK History Checked 07/21/18 11:35 WBC RBC Hgb Hct MCV MCH MCHC RDW Plt Count MPV PT INR APTT pCO2 19 L* pO2 67.0 L HCO3 8.9 L* ABG pH 7.28 L ABG Total CO2 9.5 L ABG O2 Saturation 95.4 ABG O2 Content 14.2 L ABG Base Excess -15.9 L ABG Hemoglobin 10.8 L ABG Carboxyhemoglobin 1.4 POC ABG HHb (Measured) 4.5 ABG Methemoglobin 0.6 ABG O2 Capacity 14.9 L ABG Potassium VBG pH VBG pCO2 VBG HCO3 VBG Total CO2 VBG O2 Sat (Calc) VBG Base Excess VBG Potassium Hgb O2 Saturation 93.5 L Sodium Chloride Glucose Lactate Mechanical Rate FiO2 40.0 Tidal Volume PEEP Potassium Carbon Dioxide Anion Gap BUN Creatinine Est GFR ( Amer) Est GFR (Non-Af Amer) Random Glucose Calcium Phosphorus Magnesium Total Bilirubin AST ALT Alkaline Phosphatase Lactate Dehydrogenase Troponin I Total Protein Albumin Globulin Albumin/Globulin Ratio Triglycerides Cholesterol LDL Cholesterol Direct HDL Cholesterol Lipase Free T4 TSH 3rd Generation Prolactin Beta HCG, Quant Arterial Blood Potassium Venous Blood Potassium Urine Color Urine Appearance Urine pH Ur Specific [place] Urine Protein Urine Glucose (UA) Urine Ketones Urine Blood Urine Nitrate Urine Bilirubin Urine Urobilinogen Ur Leukocyte Esterase Urine RBC Urine WBC Ur Epithelial Cells Amorphous Sediment Urine Bacteria Hyaline Casts Fine Granular Casts Urine Opiates Screen Urine Methadone Screen Ur Barbiturates Screen Ur Phencyclidine Scrn Ur Amphetamines Screen U Benzodiazepines Scrn U Oth Cocaine Metabols U Cannabinoids Screen Blood Type Blood Type Confirm Antibody Screen BBK History Checked Addendum Addendum: 07/20/18 16:49 MICU Attending addendum Please see my note on 07/20 for the addendum to this note above agree with note above with add/excepts detailed in my addendum Jonny Dover MD
[2018-07-20] MEDS ORDERED: Sodium Chloride 0.9% 3,000 ML IV STA (14:14)
[2018-07-20 14:18] LABS: ARTERIAL BLOOD GAS O2 SAT 100.5 % (95-98); ARTERIAL BLOOD GAS PCO2 23 mm/Hg (35-45); ARTERIAL BLOOD GAS PH 7.24 (7.35-7.45); ARTERIAL BLOOD GAS TCO2 10.6 mmol.L (22-28)
[2018-07-20 14:20] LABS: ARTERIAL BLOOD GAS HCO3 9.9 mmol/L (21-28)
--- NOTE | 2018-07-20 14:59 | CT ---
Date of service: 07/20/2018 PROCEDURE: CT HEAD WITHOUT CONTRAST. HISTORY: ams COMPARISON: None available. TECHNIQUE: Axial computed tomography images were obtained through the head/brain without intravenous contrast. Radiation dose: Total exam DLP = 1019.04 mGy-cm. This CT exam was performed using one or more of the following dose reduction techniques: Automated exposure control, adjustment of the mA and/or kV according to patient size, and/or use of iterative reconstruction technique. FINDINGS: HEMORRHAGE: No intracranial hemorrhage. BRAIN: No mass effect or edema. No atrophy or chronic microvascular ischemic changes. VENTRICLES: Unremarkable. No hydrocephalus. CALVARIUM: Unremarkable. PARANASAL SINUSES: Extensive pansinus disease. MASTOID AIR CELLS: Unremarkable as visualized. No inflammatory changes. OTHER FINDINGS: Limited by patient positioning. IMPRESSION: No acute hemorrhage.
[2018-07-20] MEDS ORDERED: levETIRAcetam 1000mg/100ml NS 100 ML IV ONE (15:26)
--- NOTE | 2018-07-20 15:30 | CT ---
Date of service: 07/20/2018 PROCEDURE: CT Chest, Abdomen and Pelvis without intravenous contrast HISTORY: h/o PE, elevated lipase COMPARISON: None available. TECHNIQUE: Radiation dose: Total exam DLP = 391.33 mGy-cm. This CT exam was performed using one or more of the following dose reduction techniques: Automated exposure control, adjustment of the mA and/or kV according to patient size, and/or use of iterative reconstruction technique. FINDINGS: CT CHEST WITHOUT CONTRAST: LUNGS: Clear. No nodule, mass or consolidation. MEDIASTINUM: Unremarkable. Normal caliber aorta and pulmonary arterial trunk. Normal size heart. LYMPH NODES: Unremarkable. PLEURA: Unremarkable. No pneumothorax. No pleural fluid. BONES: Unremarkable. OTHER FINDINGS: None. CT ABDOMEN AND PELVIS: LIVER: Unremarkable. No gross lesion or ductal dilatation. GALLBLADDER AND BILE DUCTS: Gallbladder is filled with dense sludge. There is some pericholecystic fluid. Possible cholecystitis PANCREAS: There is mild diffuse swelling of the pancreas when compared to the study from 2017. There is also some edema in the fat planes around the pancreatic head. Findings are suspicious for pancreatitis especially given the history of elevated lipase. SPLEEN: Unremarkable. ADRENALS: Unremarkable. No mass. KIDNEYS AND URETERS: Unremarkable. No hydronephrosis. No solid mass. VASCULATURE: No aortic atherosclerotic calcification or mural plaque present. Unremarkable. No aortic aneurysm. BOWEL: There is mild mural thickening in the colon which could represent colitis. Clinical correlation is suggested. APPENDIX: Normal appendix. PERITONEUM: Unremarkable. No free fluid. No free air. LYMPH NODES: Unremarkable. No enlarged lymph nodes. BLADDER: Unremarkable. REPRODUCTIVE: Unremarkable. BONES: No acute fracture. OTHER FINDINGS: None. IMPRESSION: Gallbladder is filled with dense sludge. There is some pericholecystic fluid. Possible cholecystitis There is mild diffuse swelling of the pancreas when compared to the study from 2017. There is also some edema in the fat planes around the pancreatic head. Findings are suspicious for pancreatitis especially given the history of elevated lipase. Mild mural thickening throughout the colon. Possible colitis
[2018-07-20] MEDS ORDERED: Fentanyl 1000mcg/100ml NS 1,000 MCG/100 ML BAG IV PRN (15:42)
[2018-07-20] MEDS ORDERED: Midazolam 100 mg/100ml in NS 100 MG/100 ML SOL IV PRN (15:44)
[2018-07-20 16:08] LABS: VENOUS BLOOD GAS BASE EXCESS -16.4 mmol/L (0.0-2.0); VENOUS BLOOD GAS PO2 215 mm/Hg (30-55); VENOUS BLOOD PH 7.23 (7.32-7.43)
[2018-07-20 16:14] LABS: INR 0.99; PROTHROMBIN TIME 11.3 SECONDS (9.4-12.5)
[2018-07-20 16:17] LABS: PARTIAL THROMBOPLASTIN TIME 34.6 Seconds (25.1-36.5)
[2018-07-20 16:32] LABS: FREE T4 1.51 ng/dL (0.78-2.19)
--- NOTE | 2018-07-20 17:00 | PCM.PROC ---
Addendum Addendum: 07/20/18 16:58 Central Venous Catheter (CVC, Central Line) Placement Date: 07/20/2018 Indication: Shock/Intravenous access Attending: Dr Justus Parisi time-out was completed verifying correct patient, procedure, site, positioning. The patient was placed in a dependent position appropriate for central line placement based on the vein to be cannulated. The patients right neck was prepped and draped in sterile fashion. 1% Lidocaine was used to anesthetize the surrounding skin area. A triple lumen Cordis catheter was introduced into the the internal jugularusing the Seldinger technique and under ultrasound guidance. Placement of wire confirmed with US. The catheter was threaded smoothly over the guide wire and appropriate blood return was obtained. Each lumen of the catheter was evacuated of air and flushed with sterile saline. The catheter was then sutured in place to the skin and a sterile dressing applied. Perfusion to the extremity distal to the point of catheter insertion was checked and found to be adequate. CXR ordered. Estimated Blood Loss: minimal The patient tolerated the procedure well and there were no complications.
[2018-07-20] MEDS ORDERED: Heparin25000 units/250ml 1/2NS 25,000 UNITS/250 ML BAG IV PRN (17:14)
--- NOTE | 2018-07-20 17:27 | CP.PCM.CON ---
Past Patient History - Infectious Disease Hx of Infectious Diseases: None - Past Social History Smoking Status: Light Smoker < 10 Cigarettes Daily - CARDIAC Hx Cardiac Disorders: No - PULMONARY Hx Respiratory Disorders: Yes Hx Asthma: Yes - NEUROLOGICAL Hx Neurological Disorder: No - HEENT Hx HEENT Problems: No - RENAL Hx Chronic Kidney Disease: No - ENDOCRINE/METABOLIC Hx Endocrine Disorders: No - HEMATOLOGICAL/ONCOLOGICAL Other/Comment: DVT - INTEGUMENTARY Hx Dermatological Problems: No - MUSCULOSKELETAL/RHEUMATOLOGICAL Hx Musculoskeletal Disorders: No Hx Falls: No - GASTROINTESTINAL Hx Gastrointestinal Disorders: No - GENITOURINARY/GYNECOLOGICAL Hx Genitourinary Disorders: No - PSYCHIATRIC Hx Psychophysiologic Disorder: No Hx Substance Use: No Other/Comment: recently lost , decrease appetite, half pack smoker - SURGICAL HISTORY Hx Surgeries: No - ANESTHESIA Hx Anesthesia: No Meds Allergies/Adverse Reactions: Allergies Allergy/AdvReac Type Severity Reaction Status Date / Time No Known Allergies Allergy Verified 07/20/18 16:33 - Medications Medications: Current Medications Vancomycin HCl (Vancomycin 1gm) 1 gm in 250 mls @ 167 mls/hr IVPB DAILY MELY; Protocol Piperacillin Sod/Tazobactam Sod (Zosyn 3.375 In Ns 100ml) 100 mls @ 25 mls/hr IVPB Q12 MELY; Protocol Stop: 07/21/18 01:59 NOREPINEPHRINE BIT/0.9 % NACL (Levophed 4 Mg/ 250 Ml Ns Premixed) 4 mg in 250 mls @ 15 mls/hr IV .[id number] PRN; Protocol PRN Reason: TITRATE PER MD ORDER Levetiracetam (Keppra 500mg Ivpb) 500 mg in 100 mls @ 400 mls/hr IV Q12 MELY Midazolam 100 mg/100ml in NS (Midazolam 100 Mg/100ml In Ns) 100 mg in 100 mls @ 1 mls/hr IV .Q24H PRN; Protocol PRN Reason: Sedation Heparin Sodium/Sodium Chloride (Heparin 61703 Units/250ml 1/2 Normal Saline) 25,000 units in 250 mls @ 7.348 mls/hr IV .Q24H PRN; Protocol PRN Reason: ADJUST RATE PER PROTOCOL Pantoprazole Sodium (Protonix Inj) 40 mg IVP Q12 MELY Results - Vital Signs Recent Vital Signs: Last Vital Signs Temp Pulse 60 07/20/18 14:44 Resp 18 07/20/18 16:45 BP 90/50 L 07/20/18 14:44 Pulse Ox 100 07/20/18 16:45 - Labs Result Diagrams: 07/20/18 12:08 07/20/18 12:08 Labs: Laboratory Results - last 24 hr 07/20/18 07/20/18 07/20/18 12:08 12:08 12:08 WBC 17.7 H RBC 4.85 Hgb 16.2 H D Hct 46.3 MCV 95.5 D MCH 33.4 MCHC 35.0 RDW 15.1 H Plt Count 153 MPV 12.6 H Gran % 85.2 H Lymph % (Auto) 9.2 L Porter % (Auto) 5.4 Eos % (Auto) 0.1 L Baso % (Auto) 0.1 Gran # 15.02 H Lymph # (Auto) 1.6 Porter # (Auto) 1.0 H Eos # (Auto) 0.0 Baso # (Auto) 0.02 PT INR APTT pCO2 pO2 72 H HCO3 ABG pH ABG Total CO2 ABG O2 Saturation ABG Base Excess ABG Potassium VBG pH 7.26 L VBG pCO2 33.0 L VBG HCO3 14.8 L VBG Total CO2 15.8 L VBG O2 Sat (Calc) 94.2 H VBG Base Excess -11.2 L VBG Potassium 6.4 H* Sodium 135.0 138 Chloride 90.0 L 92 L Glucose 149 H Lactate 2.6 H Mechanical Rate FiO2 21.0 Tidal Volume PEEP Potassium 3.9 Carbon Dioxide 14 L Anion Gap 36 H BUN 35 H Creatinine 2.0 H Est GFR ( Amer) 31 Est GFR (Non-Af Amer) 26 Random Glucose 139 H Calcium 10.1 Total Bilirubin 0.8 AST 29 ALT 18 Alkaline Phosphatase 92 Total Creatine Kinase 200 Troponin I 0.02 D Total Protein 7.2 Albumin 4.1 Globulin 3.1 Albumin/Globulin Ratio 1.3 Lipase 2184 H Free T4 TSH 3rd Generation Beta HCG, Quant Arterial Blood Potassium Venous Blood Potassium 6.4 H* Alcohol, Quantitative 07/20/18 07/20/18 07/20/18 12:08 14:10 16:01 WBC RBC Hgb Hct MCV MCH MCHC RDW Plt Count MPV Gran % Lymph % (Auto) Porter % (Auto) Eos % (Auto) Baso % (Auto) Gran # Lymph # (Auto) Porter # (Auto) Eos # (Auto) Baso # (Auto) PT 11.3 INR 0.99 APTT 34.6 pCO2 23 L pO2 689.0 H HCO3 9.9 L* ABG pH 7.24 L ABG Total CO2 10.6 L ABG O2 Saturation 100.5 H ABG Base Excess -15.6 L ABG Potassium 1.4 L* VBG pH VBG pCO2 VBG HCO3 VBG Total CO2 VBG O2 Sat (Calc) VBG Base Excess VBG Potassium Sodium 142.0 Chloride 111.0 H Glucose 106 H Lactate 1.1 Mechanical Rate 16 FiO2 100.0 Tidal Volume 400 PEEP 5 Potassium Carbon Dioxide Anion Gap BUN Creatinine Est GFR ( Amer) Est GFR (Non-Af Amer) Random Glucose Calcium Total Bilirubin AST ALT Alkaline Phosphatase Total Creatine Kinase Troponin I Total Protein Albumin Globulin Albumin/Globulin Ratio Lipase Free T4 TSH 3rd Generation Beta HCG, Quant < 2.39 Arterial Blood Potassium 1.4 L* Venous Blood Potassium Alcohol, Quantitative < 10 07/20/18 07/20/18 16:01 16:01 WBC RBC Hgb Hct MCV MCH MCHC RDW Plt Count MPV Gran % Lymph % (Auto) Porter % (Auto) Eos % (Auto) Baso % (Auto) Gran # Lymph # (Auto) Porter # (Auto) Eos # (Auto) Baso # (Auto) PT INR APTT pCO2 pO2 215 H HCO3 ABG pH ABG Total CO2 ABG O2 Saturation ABG Base Excess ABG Potassium VBG pH 7.23 L VBG pCO2 22.0 L VBG HCO3 9.2 L VBG Total CO2 9.9 L VBG O2 Sat (Calc) 99.9 H VBG Base Excess -16.4 L VBG Potassium 1.7 L* Sodium 145.0 Chloride 108.0 H Glucose 98 Lactate 1.2 Mechanical Rate FiO2 21.0 Tidal Volume PEEP Potassium Carbon Dioxide Anion Gap BUN Creatinine Est GFR ( Amer) Est GFR (Non-Af Amer) Random Glucose Calcium Total Bilirubin AST ALT Alkaline Phosphatase Total Creatine Kinase Troponin I Total Protein Albumin Globulin Albumin/Globulin Ratio Lipase Free T4 1.51 TSH 3rd Generation 5.08 H Beta HCG, Quant Arterial Blood Potassium Venous Blood Potassium 1.7 L* Alcohol, Quantitative Addendum Addendum: 07/20/18 17:26 MICU Attending Addendum to wedding planning internship note/consult: Patient seen and examined with housestaff in ED. Agree with note above with the following additions/exceptions: This is a 57 y/o F with asthma, and DVT/PE this past Aug 2017 on coumadin at home found unresponsive. Family did not hear from her for 4 days and broke down the door and found her on the floor unresponsive. In the ED she was hypothermic and subsequentally intubated. On her exam she has a coin size laceration on her right scalp as well as deep bruising laterally from her torso down to her arm and legs. Unclear etiology of her unresponsiveness and shock. CT head did not show bleed. Stroke is possible however uncommon to cause her to be completely unresposnivce. The event was likely 4 days ago so I would also expect the stroke to show on CT by now. Her exam suggest she may have fallen on her right side, hit her head and remained on her side for a few days. Her hypothermia may be from being unrepsonviev or the cause of it. From a neuro prospective, will empirically tx her with keppra and versed drip while obtaining 24 hour video EEG. Neuro consulted for stroke workup. She will likely need a CTA head / MRI once kidney function improves. Will also give ASA for secondary stroke ppx. She does not have a hx of Afib so it is unlikely her subtherpeutic INR would cause a stroke unless she has a PFO. Will also order 2d Echo Bubble Study -ASA -Heparin drip -24 hour EEG -Keppra load and 500 q 12h with versed drip -Neuro Consult -2D Echo with bubble study Her shock may be neurogenic or hypovolemic however will still cover empirically for sepsis with broad spectrum abx. Doubt obstructive shock as her TNI are neg. Either way she will be started on heparin drip which will cover tx. -Vanc/Zosyn -Follow up blood, urine cx. (CXR is neg) AUBREY appears to be infrarenal like causing RTA metabolic acidosis. CK not elevated suggesting this is not rhabdo. Will cont hydration as she is hypovolemic. -IV normal saline 30cc/ kg for sepsis with additional 2 L NS warmed for hypothermia active warming -warm saline lavage of bladder and stomach via vazquez and OGtube -cont bear huggers -check TSH -monitor urine output -levophed if needed to keep MAP > 65 -repeat chem in AM She is stable from a pulm perspective and has been able to compensate for her acidosis. Will keep ventilated while undergoing workup with low VT ventilation. Bradycardia is likely from hypothermia. Expect it to improve with warming. Lines: right IJ placed just now, CXR pending OGtube placed +Vazquez DVT ppx: on heparin drip GI ppx: indicated for intubated patient with PPI Rest of care above Jonny Dover MD Pulmonary Critical Care and Sleep Medicine Critical Care Time 55 mins
[2018-07-20] MEDS: NOREPINEPHRINE BIT/0.9 % NACL 4 MG/250 ML BAG IV PRN (17:50)
--- NOTE | 2018-07-20 17:50 | CARD ---
APPROVED REPORT Date of service: 07/20/2018 EKG Measurement Heart [id number] <Conclusion> Sinus bradycardia ST elevation, consider inferolateral injury or acute infarct Possible Ibarra waves of hypothermia, correlate clinically Prolonged QT Abnormal ECG
--- NOTE | 2018-07-20 18:56 | RAD ---
Date of service: 07/20/2018 HISTORY: TLC placement and OG tube placement COMPARISON: July 20, 2018 Time of the most recent examination: 13:12. FINDINGS: LUNGS: No active pulmonary disease. PLEURA: No significant pleural effusion identified, no pneumothorax apparent. CARDIOVASCULAR: No atherosclerotic calcification present Venous access catheter in satisfactory position. No pneumothorax following right IJ catheter approach. OSSEOUS STRUCTURES: No significant abnormalities. VISUALIZED UPPER ABDOMEN: Normal. OTHER FINDINGS: Satisfactory position of orogastric tube. Stable position of endotracheal tube. IMPRESSION: No active pulmonary disease. Satisfactory position of support apparatus.
[2018-07-20] MEDS ORDERED: Lactated Ringer's 1,000 ML IV SCH (19:45)
[2018-07-20] MEDS: Vancomycin 1gm in NS 250ml 1 GM/250 ML BAG IVPB SCH (20:08)
[2018-07-20] MEDS ORDERED: Pneumococcal 23-Valent Vaccine IM ONE (20:46)
[2018-07-20] MEDS ORDERED: Influenza Vaccine 60 mcg/0.5 mL SYR (4YR UP) IM ONE (20:46)
[2018-07-20 21:59] LABS: TROPONIN I 0.01 ng/mL
[2018-07-20] MEDS ORDERED: Piperacillin/Tazobact 3.375 gm 100 ML IVPB SCH (22:00)
[2018-07-20 22:01] LABS: ALBUMIN 2.3 g/dL (3.0-4.8); CALCIUM 7.1 mg/dL (8.4-10.5)
[2018-07-21] MEDS: levETIRAcetam 500mg IVPB 500 MG/100 ML BAG IV SCH ×3 (00:03→21:44)
[2018-07-21] MEDS ORDERED: Sodium Chloride 0.9% 1,000 ML IV SCH (00:15)
[2018-07-21] MEDS ORDERED: Magnesium Sulfate 2 GM in Sodium Chloride 0.9% 100 ML IVPB ONE (03:14)
[2018-07-21] MEDS: NOREPINEPHRINE BIT/0.9 % NACL 4 MG/250 ML BAG IV PRN ×3 (03:17→16:44)
[2018-07-21 06:04] LABS: ARTERIAL BLOOD GAS HCO3 10.3 mmol/L (21-28); ARTERIAL BLOOD GAS O2 SAT 87.3 % (95-98); ARTERIAL BLOOD GAS PCO2 23 mm/Hg (35-45); ARTERIAL BLOOD GAS PH 7.26 (7.35-7.45)
[2018-07-21 06:50] LABS: URINE BILIRUBIN LARGE (NEGATIVE); URINE BLOOD MODERATE (NEGATIVE); URINE GLUCOSE (UA) NEGATIVE (NEGATIVE); URINE LEUKOCYTE ESTERASE SMALL Leu/uL (NEGATIVE); URINE PROTEIN 30 mg/dL (<30 mg/dL); URINE UROBILINOGEN 0.2 E.U./dL (<1 E.U./dL)
[2018-07-21 06:54] LABS: MEAN CELL VOLUME 94.9 fl (80.0-105.0); MEAN CORPUSCULAR HEMOGLOBIN 32.3 pg (25.0-35.0); MEAN PLATELET VOLUME 11.5 fl (7.0-11.0); RBC 3.56 10^6/uL (3.5-6.1); RED CELL DISTRIBUTION WIDTH 15.6 % (11.5-14.5); WHITE BLOOD COUNT 15.2 10^3/uL (4.5-11.0)
[2018-07-21 06:55] LABS: URINE APPEARANCE SL CLOUDY (CLEAR); URINE COLOR YELLOW (YELLOW)
[2018-07-21 06:59] LABS: ALB/GLOB RATIO 0.9 (1.1-1.8); ALBUMIN 2.3 g/dL (3.0-4.8); CALCIUM 6.9 mg/dL (8.4-10.5)
[2018-07-21 07:00] LABS: URINE BACTERIA MOD (NEG)
[2018-07-21 07:01] LABS: URINE AMORPHOUS SEDIMENT FEW
[2018-07-21 07:13] LABS: HEMOGLOBIN 11.5 g/dL (12.0-16.0)
--- NOTE | 2018-07-21 07:25 | RAD ---
Date of service: 07/21/2018 HISTORY: intubated; [facility] ventilation COMPARISON: Portable chest 07/12/2018. FINDINGS: LUNGS: Endotracheal and orogastric tubes do not appear significantly changed in position as well as right central venous line. No acute pulmonary disease appreciated bilaterally. PLEURA: No significant pleural effusion identified, no pneumothorax apparent. CARDIOVASCULAR: No aortic atherosclerotic calcification present. Normal cardiac size. No pulmonary vascular congestion. OSSEOUS STRUCTURES: No significant abnormalities. VISUALIZED UPPER ABDOMEN: Normal. OTHER FINDINGS: None. IMPRESSION: Stable positioning of tubes and catheter as discussed above with no appreciable cardiopulmonary disease once again.
[2018-07-21 07:35] LABS: BARBITURATES, UR NEGATIVE (NEGATIVE); BENZODIAZEPINES, UR NEGATIVE (NEGATIVE); OPIATES, UR NEGATIVE (NEGATIVE); PHENCYCLIDINE, UR NEGATIVE (NEGATIVE)
[2018-07-21] MEDS: Vancomycin 1gm in NS 250ml 1 GM/250 ML BAG IVPB SCH (09:21)
[2018-07-21] MEDS: Lactated Ringer's 1,000 ML IV SCH ×2 (09:30→10:30)
[2018-07-21] MEDS ORDERED: Meropenem IV 1 gm in NS 1 GM/50 ML BAG IVPB SCH (10:15)
[2018-07-21 10:22] LABS: HDL CHOLESTEROL 59 mg/dL (29-60)
[2018-07-21 10:32] LABS: LDL CHOLESTEROL 43 mg/dL (0-129)
--- NOTE | 2018-07-21 11:12 | US ---
Date of service: 07/21/2018 HISTORY: gallstone pancreaitis COMPARISON: Abdomen pelvis CT 07/20/2018. TECHNIQUE: Sonographic evaluation of the abdomen. FINDINGS: LIVER: Measures 13.4 cm. Normal echogenicity of the liver parenchyma. No mass. No intrahepatic bile duct dilatation. GALLBLADDER: Gallbladder appears mildly distended. No cholelithiasis appreciable. Upper limits normal mural thickness of 2.8 mm but no definitive pericholecystic fluid collection identified. No reported sonographic Tsai sign. COMMON BILE DUCT: Measures 3.1 mm. No stones. No dilatation. PANCREAS: The tail of the pancreas is obscured by overlying bowel gas with remainder unremarkable. RIGHT KIDNEY: Measures 10.0cm. Normal echogenicity. No calculus, mass, or hydronephrosis. LEFT KIDNEY: Left kidney was completely obscured by overlying bowel gas. SPLEEN: Normal in size and contour. No mass. AORTA: No aneurysmal dilatation. IVC: Unremarkable. OTHER FINDINGS: None. IMPRESSION: No cholelithiasis. Distended gallbladder with upper limits normal mural thickness but no definitive pericholecystic fluid collection. No evidence of common bile duct or prominent intrahepatic biliary duct dilatation. No choledocholithiasis. Tail the pancreas is obscured by overlying bowel gas with remainder unremarkable appearing. Left kidney is completely obscured by overlying bowel.
[2018-07-21] MEDS: Vasopressin 20 UNITS in Dextrose 5% In Water 100 ML IV SCH ×2 (11:20→21:49)
[2018-07-21 11:42] LABS: ARTERIAL BLOOD GAS HEMOGLOBIN 10.8 g/dL (11.7-17.4); ARTERIAL BLOOD GAS O2 CAPACITY 14.9 mL/dl (16-24); ARTERIAL BLOOD GAS O2 CONTENT 14.2 ML/dl (15-23); ARTERIAL BLOOD GAS O2 SAT 95.4 % (95-98); ARTERIAL BLOOD GAS PCO2 19 mm/Hg (35-45); ARTERIAL BLOOD GAS PH 7.28 (7.35-7.45); ARTERIAL BLOOD GAS TCO2 9.5 mmol.L (22-28)
[2018-07-21 11:45] LABS: ARTERIAL BLOOD GAS HCO3 8.9 mmol/L (21-28)
--- NOTE | 2018-07-21 12:12 | CP.PCM.CON ---
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 Unable to obtain history from patient on ventilator support. On record review, the patient's sister found her to be unresponsive at home on the floor after no communication for at least four days. Gi consultation for pancreatitis. Family History- unknown, on ventilator support Social History- unknown, on record review- weekend alcohol intake with tobacco use up to a year ago, marijuana on current drug screen Surgical History, unknown, on record review- left leg surgery as a child Review of Systems - Review of Systems Review of Systems: unable to complete 12-point review of systems on ventilator support Past Patient History - Infectious Disease Hx of Infectious Diseases: None - Past Social History Smoking Status: Current Some Days Smoker - CARDIAC Hx Cardiac Disorders: No Hx Peripheral Vascular Disease: Yes (DVT ON COUMADIN) - PULMONARY Hx Respiratory Disorders: Yes (SMOKES CIGARETTES HALF A PPD.) Hx Asthma: Yes Other/Comment: PULMONARY EMBOLISM - NEUROLOGICAL Hx Neurological Disorder: No - HEENT Hx HEENT Problems: No - RENAL Hx Chronic Kidney Disease: No - ENDOCRINE/METABOLIC Hx Endocrine Disorders: No - HEMATOLOGICAL/ONCOLOGICAL Hx Blood Disorders: Yes Other/Comment: DVT - INTEGUMENTARY Hx Dermatological Problems: Yes Other/Comment: 07-20-18 MULTIPLE REDDENED SKIN ALL OVER BODY,LEGS ARMS. DTI FROM LAYING ON FLOOR FOR ALMOST 4 D OR MORE. WAS FD ON FLOOR BY SIBLING. BILATERAL SHOULDER BLADE,BILATERAL ELBOW,SPINE,LOWER BACK.BILATERAL HIP, BILATERAL KNEE, BILATERAL MALLEOLAR BONE, SACRAL AREA WITH 2 SMALL NECROTIC TISSUE.,BILATERAL BUTTOCKS AREA. HAS DTI. SKIN IS RED SWOLLEN.COOL SKIN. - MUSCULOSKELETAL/RHEUMATOLOGICAL Hx Musculoskeletal Disorders: Yes Hx Falls: Yes Hx Unsteady Gait: Yes - GASTROINTESTINAL Hx Gastrointestinal Disorders: Yes (CLOLITIS?,CHOLECYSTITIS? PANCREATITIS?) Hx Gastroesophageal Reflux: Yes - GENITOURINARY/GYNECOLOGICAL Hx Genitourinary Disorders: No - PSYCHIATRIC Hx Psychophysiologic Disorder: Yes Other/Comment: recently lost , decrease appetite, half pack smoker - SURGICAL HISTORY Hx Surgeries: No - ANESTHESIA Hx Anesthesia: No Meds Allergies/Adverse Reactions: Allergies Allergy/AdvReac Type Severity Reaction Status Date / Time No Known Allergies Allergy Verified 07/20/18 16:33 - Medications Medications: Current Medications Aspirin (Aspirin) 325 mg PO DAILY [facility] Hydrocortisone Sodium Succinate (Solu-Cortef) 50 mg IVP Q6H [facility] Last Admin: 07/21/18 11:55 Dose: 50 mg Vancomycin HCl (Vancomycin 1gm) 1 gm in 250 mls @ 167 mls/hr IVPB DAILY [facility]; Protocol Last Admin: 07/21/18 09:21 Dose: 167 mls/hr NOREPINEPHRINE BIT/0.9 % NACL (Levophed 4 Mg/ 250 Ml Ns Premixed) 4 mg in 250 mls @ 15 mls/hr IV .[id number] PRN; Protocol PRN Reason: TITRATE PER MD ORDER Last Admin: 07/21/18 09:17 Dose: 12 mcg/min, 45 mls/hr Levetiracetam (Keppra 500mg Ivpb) 500 mg in 100 mls @ 400 mls/hr IV Q12 [facility] Last Admin: 07/21/18 09:20 Dose: 400 mls/hr Midazolam 100 mg/100ml in NS (Midazolam 100 Mg/100ml In Ns) 100 mg in 100 mls @ 1 mls/hr IV .Q24H PRN; Protocol PRN Reason: Sedation Heparin Sodium/Sodium Chloride (Heparin 10985 Units/250ml 1/2 Normal Saline) 25,000 units in 250 mls @ 7.348 mls/hr IV .Q24H PRN; Protocol PRN Reason: ADJUST RATE PER PROTOCOL Last Titration: 07/21/18 03:35 Dose: 15 units/kg/hr, 6.123 mls/hr Potassium Chloride (Potassium Chloride 20 Meq/100 Ml) 20 meq in 100 mls @ 50 mls/hr IVPB Q2H [facility] Stop: 07/21/18 13:29 Lactated Ringer's 1,000 ml/ IV (SUPPLIES) 1,000 mls @ 150 mls/hr IV ONCE ONE Stop: 07/21/18 16:11 Vasopressin 20 units/ Dextrose 101 mls @ 9.09 mls/hr IV .Q11H7M [facility]; Protocol Last Admin: 07/21/18 11:20 Dose: 9.09 mls/hr Pantoprazole Sodium (Protonix Inj) 40 mg IVP Q12 [facility] Last Admin: 07/21/18 09:20 Dose: 40 mg Physical Exam - Constitutional Appears: Toxic, Other - Head Exam Head Exam: NORMOCEPHALIC - Eye Exam Eye Exam: EOMI, PERRL. absent: Scleral icterus Pupil Exam: PERRL - ENT Exam ENT Exam: Mucous Membranes Dry Additional comments: ETT, OGT in place - Neck Exam Neck exam: Positive for: Normal Inspection Additional comments: right central line in place - Respiratory Exam Respiratory Exam: Clear to Auscultation Bilateral. absent: Rales, Rhonchi, Wheezes - Cardiovascular Exam Cardiovascular Exam: Tachycardia, +S1, +S2 - GI/Abdominal Exam GI & Abdominal Exam: Soft, Tenderness. absent: Distended, Firm, Guarding, Organomegaly, Rebound, Rigid Additional comments: diffuse tenderness to palpation - Extremities Exam Extremities exam: Positive for: normal inspection - Neurological Exam Additional comments: opens eyes, grimace to pain, moves upper extremities to stop abdominal exam, PERRL, EOMI - Psychiatric Exam Additional comments: unable to assess on ventilator support - Skin Skin Exam: Dry, Intact, Normal Color, Warm Results - Vital Signs Recent Vital Signs: Last Vital Signs Temp 98.1 F 07/21/18 06:59 Pulse 109 H 07/21/18 06:59 Resp 24 07/21/18 07:46 BP 111/57 L 07/21/18 11:20 Pulse Ox 98 07/21/18 06:00 - Labs Result Diagrams: 07/21/18 05:00 07/21/18 06:00 Labs: Laboratory Results - last 24 hr 07/20/18 07/20/18 07/20/18 12:08 12:08 12:08 WBC 17.7 H RBC 4.85 Hgb 16.2 H D Hct 46.3 MCV 95.5 D MCH 33.4 MCHC 35.0 RDW 15.1 H Plt Count 153 MPV 12.6 H Gran % 85.2 H Lymph % (Auto) 9.2 L [place] % (Auto) 5.4 Eos % (Auto) 0.1 L Baso % (Auto) 0.1 Gran # 15.02 H Lymph # (Auto) 1.6 Norton # (Auto) 1.0 H Eos # (Auto) 0.0 Baso # (Auto) 0.02 PT INR APTT pCO2 pO2 72 H HCO3 ABG pH ABG Total CO2 ABG O2 Saturation ABG O2 Content ABG Base Excess ABG Hemoglobin ABG Carboxyhemoglobin POC ABG HHb (Measured) ABG Methemoglobin ABG O2 Capacity ABG Potassium VBG pH 7.26 L VBG pCO2 33.0 L VBG HCO3 14.8 L VBG Total CO2 15.8 L VBG O2 Sat (Calc) 94.2 H VBG Base Excess -11.2 L VBG Potassium 6.4 H* Hgb O2 Saturation Sodium 135.0 138 Chloride 90.0 L 92 L Glucose 149 H Lactate 2.6 H Mechanical Rate FiO2 21.0 Tidal Volume PEEP Potassium 3.9 Carbon Dioxide 14 L Anion Gap 36 H BUN 35 H Creatinine 2.0 H Est GFR ( Amer) 31 Est GFR (Non-Af Amer) 26 Random Glucose 139 H Calcium 10.1 Phosphorus Magnesium Total Bilirubin 0.8 AST 29 ALT 18 Alkaline Phosphatase 92 Lactate Dehydrogenase Total Creatine Kinase 200 Troponin I 0.02 D Total Protein 7.2 Albumin 4.1 Globulin 3.1 Albumin/Globulin Ratio 1.3 Triglycerides Cholesterol LDL Cholesterol Direct HDL Cholesterol Lipase 2184 H Free T4 TSH 3rd Generation Prolactin Beta HCG, Quant Arterial Blood Potassium Venous Blood Potassium 6.4 H* Urine Color Urine Appearance Urine pH Ur Specific [place] Urine Protein Urine Glucose (UA) Urine Ketones Urine Blood Urine Nitrate Urine Bilirubin Urine Urobilinogen Ur Leukocyte Esterase Urine RBC Urine WBC Ur Epithelial Cells Amorphous Sediment Urine Bacteria Hyaline Casts Fine Granular Casts Urine Opiates Screen Urine Methadone Screen Ur Barbiturates Screen Ur Phencyclidine Scrn Ur Amphetamines Screen U Benzodiazepines Scrn U Oth Cocaine Metabols U Cannabinoids Screen Alcohol, Quantitative Blood Type Blood Type Confirm Antibody Screen BBK History Checked 07/20/18 07/20/18 07/20/18 12:08 14:10 16:01 WBC RBC Hgb Hct MCV MCH MCHC RDW Plt Count MPV Gran % Lymph % (Auto) [place] % (Auto) Eos % (Auto) Baso % (Auto) Gran # Lymph # (Auto) [place] # (Auto) Eos # (Auto) Baso # (Auto) PT 11.3 INR 0.99 APTT 34.6 pCO2 23 L pO2 689.0 H HCO3 9.9 L* ABG pH 7.24 L ABG Total CO2 10.6 L ABG O2 Saturation 100.5 H ABG O2 Content ABG Base Excess -15.6 L ABG Hemoglobin ABG Carboxyhemoglobin POC ABG HHb (Measured) ABG Methemoglobin ABG O2 Capacity ABG Potassium 1.4 L* VBG pH VBG pCO2 VBG HCO3 VBG Total CO2 VBG O2 Sat (Calc) VBG Base Excess VBG Potassium Hgb O2 Saturation Sodium 142.0 Chloride 111.0 H Glucose 106 H Lactate 1.1 Mechanical Rate 16 FiO2 100.0 Tidal Volume 400 PEEP 5 Potassium Carbon Dioxide Anion Gap BUN Creatinine Est GFR ( Amer) Est GFR (Non-Af Amer) Random Glucose Calcium Phosphorus Magnesium Total Bilirubin AST ALT Alkaline Phosphatase Lactate Dehydrogenase Total Creatine Kinase Troponin I Total Protein Albumin Globulin Albumin/Globulin Ratio Triglycerides Cholesterol LDL Cholesterol Direct HDL Cholesterol Lipase Free T4 TSH 3rd Generation Prolactin Beta HCG, Quant < 2.39 Arterial Blood Potassium 1.4 L* Venous Blood Potassium Urine Color Urine Appearance Urine pH Ur Specific [place] Urine Protein Urine Glucose (UA) Urine Ketones Urine Blood Urine Nitrate Urine Bilirubin Urine Urobilinogen Ur Leukocyte Esterase Urine RBC Urine WBC Ur Epithelial Cells Amorphous Sediment Urine Bacteria Hyaline Casts Fine Granular Casts Urine Opiates Screen Urine Methadone Screen Ur Barbiturates Screen Ur Phencyclidine Scrn Ur Amphetamines Screen U Benzodiazepines Scrn U Oth Cocaine Metabols U Cannabinoids Screen Alcohol, Quantitative < 10 Blood Type Blood Type Confirm Antibody Screen BBK History Checked 07/20/18 07/20/18 07/20/18 16:01 16:01 16:01 WBC RBC Hgb Hct MCV MCH MCHC RDW Plt Count MPV Gran % Lymph % (Auto) [place] % (Auto) Eos % (Auto) Baso % (Auto) Gran # Lymph # (Auto) [place] # (Auto) Eos # (Auto) Baso # (Auto) PT INR APTT pCO2 pO2 215 H HCO3 ABG pH ABG Total CO2 ABG O2 Saturation ABG O2 Content ABG Base Excess ABG Hemoglobin ABG Carboxyhemoglobin POC ABG HHb (Measured) ABG Methemoglobin ABG O2 Capacity ABG Potassium VBG pH 7.23 L VBG pCO2 22.0 L VBG HCO3 9.2 L VBG Total CO2 9.9 L VBG O2 Sat (Calc) 99.9 H VBG Base Excess -16.4 L VBG Potassium 1.7 L* Hgb O2 Saturation Sodium 145.0 Chloride 108.0 H Glucose 98 Lactate 1.2 Mechanical Rate FiO2 21.0 Tidal Volume PEEP Potassium Carbon Dioxide Anion Gap BUN Creatinine Est GFR ( Amer) Est GFR (Non-Af Amer) Random Glucose Calcium Phosphorus Magnesium Total Bilirubin AST ALT Alkaline Phosphatase Lactate Dehydrogenase Total Creatine Kinase Troponin I Total Protein Albumin Globulin Albumin/Globulin Ratio Triglycerides Cholesterol LDL Cholesterol Direct HDL Cholesterol Lipase Free T4 1.51 TSH 3rd Generation 5.08 H Prolactin 98.1 H Beta HCG, Quant Arterial Blood Potassium Venous Blood Potassium 1.7 L* Urine Color Urine Appearance Urine pH Ur Specific [place] Urine Protein Urine Glucose (UA) Urine Ketones Urine Blood Urine Nitrate Urine Bilirubin Urine Urobilinogen Ur Leukocyte Esterase Urine RBC Urine WBC Ur Epithelial Cells Amorphous Sediment Urine Bacteria Hyaline Casts Fine Granular Casts Urine Opiates Screen Urine Methadone Screen Ur Barbiturates Screen Ur Phencyclidine Scrn Ur Amphetamines Screen U Benzodiazepines Scrn U Oth Cocaine Metabols U Cannabinoids Screen Alcohol, Quantitative Blood Type Blood Type Confirm Antibody Screen BBK History Checked 07/20/18 07/21/18 07/21/18 21:33 02:00 05:00 WBC 15.2 H RBC 3.56 Hgb 11.5 L D Hct 33.8 L MCV 94.9 MCH 32.3 MCHC 34.0 RDW 15.6 H Plt Count 172 MPV 11.5 H Gran % Lymph % (Auto) [place] % (Auto) Eos % (Auto) Baso % (Auto) Gran # Lymph # (Auto) [place] # (Auto) Eos # (Auto) Baso # (Auto) PT INR APTT 130.0 H* pCO2 pO2 HCO3 ABG pH ABG Total CO2 ABG O2 Saturation ABG O2 Content ABG Base Excess ABG Hemoglobin ABG Carboxyhemoglobin POC ABG HHb (Measured) ABG Methemoglobin ABG O2 Capacity ABG Potassium VBG pH VBG pCO2 VBG HCO3 VBG Total CO2 VBG O2 Sat (Calc) VBG Base Excess VBG Potassium Hgb O2 Saturation Sodium 144 Chloride 115 H D Glucose Lactate Mechanical Rate FiO2 Tidal Volume PEEP Potassium 2.0 L* D Carbon Dioxide 12 L Anion Gap 20 BUN 27 H Creatinine 1.4 H Est GFR ( Amer) 47 Est GFR (Non-Af Amer) 39 Random Glucose 80 Calcium 7.1 L Phosphorus 5.0 H Magnesium 1.3 L Total Bilirubin 0.4 AST 33 ALT 26 Alkaline Phosphatase 69 Lactate Dehydrogenase Total Creatine Kinase Troponin I 0.01 D Total Protein 4.6 L Albumin 2.3 L Globulin 2.3 Albumin/Globulin Ratio 1.0 L Triglycerides Cholesterol LDL Cholesterol Direct HDL Cholesterol Lipase Free T4 TSH 3rd Generation Prolactin Beta HCG, Quant Arterial Blood Potassium Venous Blood Potassium Urine Color Urine Appearance Urine pH Ur Specific [place] Urine Protein Urine Glucose (UA) Urine Ketones Urine Blood Urine Nitrate Urine Bilirubin Urine Urobilinogen Ur Leukocyte Esterase Urine RBC Urine WBC Ur Epithelial Cells Amorphous Sediment Urine Bacteria Hyaline Casts Fine Granular Casts Urine Opiates Screen Urine Methadone Screen Ur Barbiturates Screen Ur Phencyclidine Scrn Ur Amphetamines Screen U Benzodiazepines Scrn U Oth Cocaine Metabols U Cannabinoids Screen Alcohol, Quantitative Blood Type Blood Type Confirm Antibody Screen BBK History Checked 07/21/18 07/21/18 07/21/18 05:45 06:00 06:00 WBC RBC Hgb Hct MCV MCH MCHC RDW Plt Count MPV Gran % Lymph % (Auto) [place] % (Auto) Eos % (Auto) Baso % (Auto) Gran # Lymph # (Auto) [place] # (Auto) Eos # (Auto) Baso # (Auto) PT INR APTT pCO2 23 L pO2 52.0 L HCO3 10.3 L ABG pH 7.26 L ABG Total CO2 11.0 L ABG O2 Saturation 87.3 L ABG O2 Content ABG Base Excess -14.8 L ABG Hemoglobin ABG Carboxyhemoglobin POC ABG HHb (Measured) ABG Methemoglobin ABG O2 Capacity ABG Potassium 2.9 L VBG pH VBG pCO2 VBG HCO3 VBG Total CO2 VBG O2 Sat (Calc) VBG Base Excess VBG Potassium Hgb O2 Saturation Sodium 148.0 Chloride 115.0 H Glucose 64 L Lactate 1.4 Mechanical Rate FiO2 50.0 Tidal Volume PEEP Potassium Carbon Dioxide Anion Gap BUN Creatinine Est GFR ( Amer) Est GFR (Non-Af Amer) Random Glucose Calcium Phosphorus Magnesium Total Bilirubin AST ALT Alkaline Phosphatase Lactate Dehydrogenase Total Creatine Kinase Troponin I Total Protein Albumin Globulin Albumin/Globulin Ratio Triglycerides Cholesterol LDL Cholesterol Direct HDL Cholesterol Lipase Free T4 TSH 3rd Generation Prolactin Beta HCG, Quant Arterial Blood Potassium 2.9 L Venous Blood Potassium Urine Color Urine Appearance Urine pH Ur Specific [place] Urine Protein Urine Glucose (UA) Urine Ketones Urine Blood Urine Nitrate Urine Bilirubin Urine Urobilinogen Ur Leukocyte Esterase Urine RBC Urine WBC Ur Epithelial Cells Amorphous Sediment Urine Bacteria Hyaline Casts Fine Granular Casts Urine Opiates Screen Negative Urine Methadone Screen Negative Ur Barbiturates Screen Negative Ur Phencyclidine Scrn Negative Ur Amphetamines Screen Negative U Benzodiazepines Scrn Negative U Oth Cocaine Metabols Negative U Cannabinoids Screen Positive H Alcohol, Quantitative Blood Type O POSITIVE Blood Type Confirm Antibody Screen Negative BBK History Checked No verified bt 07/21/18 07/21/18 07/21/18 06:00 06:00 06:30 WBC RBC Hgb Hct MCV MCH MCHC RDW Plt Count MPV Gran % Lymph % (Auto) [place] % (Auto) Eos % (Auto) Baso % (Auto) Gran # Lymph # (Auto) [place] # (Auto) Eos # (Auto) Baso # (Auto) PT INR APTT pCO2 pO2 HCO3 ABG pH ABG Total CO2 ABG O2 Saturation ABG O2 Content ABG Base Excess ABG Hemoglobin ABG Carboxyhemoglobin POC ABG HHb (Measured) ABG Methemoglobin ABG O2 Capacity ABG Potassium VBG pH VBG pCO2 VBG HCO3 VBG Total CO2 VBG O2 Sat (Calc) VBG Base Excess VBG Potassium Hgb O2 Saturation Sodium 145 Chloride 118 H Glucose Lactate Mechanical Rate FiO2 Tidal Volume PEEP Potassium 3.1 L Carbon Dioxide 12 L Anion Gap 18 BUN 25 H Creatinine 1.5 H Est GFR ( Amer) 43 Est GFR (Non-Af Amer) 36 Random Glucose 77 Calcium 6.9 L* Phosphorus 4.1 Magnesium 2.0 Total Bilirubin 0.4 AST 35 ALT 32 Alkaline Phosphatase 63 Lactate Dehydrogenase Total Creatine Kinase Troponin I Total Protein 4.7 L Albumin 2.3 L Globulin 2.4 Albumin/Globulin Ratio 0.9 L Triglycerides 92 Cholesterol 100 L LDL Cholesterol Direct 43 HDL Cholesterol 59 Lipase 5554 H Free T4 TSH 3rd Generation Prolactin Beta HCG, Quant Arterial Blood Potassium Venous Blood Potassium Urine Color Yellow Urine Appearance Sl cloudy Urine pH 6.0 Ur Specific [place] 1.025 Urine Protein 30 H Urine Glucose (UA) Negative Urine Ketones 15 H Urine Blood Moderate H Urine Nitrate Negative Urine Bilirubin Large H Urine Urobilinogen 0.2 Ur Leukocyte Esterase Small H Urine RBC 2 - 5 Urine WBC 5 - 10 Ur Epithelial Cells 1 - 3 Amorphous Sediment Few Urine Bacteria Mod Hyaline Casts 1-3 Fine Granular Casts 2 - 5 Urine Opiates Screen Urine Methadone Screen Ur Barbiturates Screen Ur Phencyclidine Scrn Ur Amphetamines Screen U Benzodiazepines Scrn U Oth Cocaine Metabols U Cannabinoids Screen Alcohol, Quantitative Blood Type Blood Type Confirm Antibody Screen BBK History Checked 07/21/18 07/21/18 07/21/18 06:30 06:45 10:45 WBC RBC Hgb Hct MCV MCH MCHC RDW Plt Count MPV Gran % Lymph % (Auto) [place] % (Auto) Eos % (Auto) Baso % (Auto) Gran # Lymph # (Auto) [place] # (Auto) Eos # (Auto) Baso # (Auto) PT INR APTT 181.4 H* pCO2 pO2 HCO3 ABG pH ABG Total CO2 ABG O2 Saturation ABG O2 Content ABG Base Excess ABG Hemoglobin ABG Carboxyhemoglobin POC ABG HHb (Measured) ABG Methemoglobin ABG O2 Capacity ABG Potassium VBG pH VBG pCO2 VBG HCO3 VBG Total CO2 VBG O2 Sat (Calc) VBG Base Excess VBG Potassium Hgb O2 Saturation Sodium Chloride Glucose Lactate Mechanical Rate FiO2 Tidal Volume PEEP Potassium Carbon Dioxide Anion Gap BUN Creatinine Est GFR ( Amer) Est GFR (Non-Af Amer) Random Glucose Calcium Phosphorus Magnesium Total Bilirubin AST ALT Alkaline Phosphatase Lactate Dehydrogenase 907 H Total Creatine Kinase Troponin I Total Protein Albumin Globulin Albumin/Globulin Ratio Triglycerides Cholesterol LDL Cholesterol Direct HDL Cholesterol Lipase Free T4 TSH 3rd Generation Prolactin Beta HCG, Quant Arterial Blood Potassium Venous Blood Potassium Urine Color Urine Appearance Urine pH Ur Specific [place] Urine Protein Urine Glucose (UA) Urine Ketones Urine Blood Urine Nitrate Urine Bilirubin Urine Urobilinogen Ur Leukocyte Esterase Urine RBC Urine WBC Ur Epithelial Cells Amorphous Sediment Urine Bacteria Hyaline Casts Fine Granular Casts Urine Opiates Screen Urine Methadone Screen Ur Barbiturates Screen Ur Phencyclidine Scrn Ur Amphetamines Screen U Benzodiazepines Scrn U Oth Cocaine Metabols U Cannabinoids Screen Alcohol, Quantitative Blood Type Blood Type Confirm O POSITIVE Antibody Screen BBK History Checked 07/21/18 11:35 WBC RBC Hgb Hct MCV MCH MCHC RDW Plt Count MPV Gran % Lymph % (Auto) [place] % (Auto) Eos % (Auto) Baso % (Auto) Gran # Lymph # (Auto) [place] # (Auto) Eos # (Auto) Baso # (Auto) PT INR APTT pCO2 19 L* pO2 67.0 L HCO3 8.9 L* ABG pH 7.28 L ABG Total CO2 9.5 L ABG O2 Saturation 95.4 ABG O2 Content 14.2 L ABG Base Excess -15.9 L ABG Hemoglobin 10.8 L ABG Carboxyhemoglobin 1.4 POC ABG HHb (Measured) 4.5 ABG Methemoglobin 0.6 ABG O2 Capacity 14.9 L ABG Potassium VBG pH VBG pCO2 VBG HCO3 VBG Total CO2 VBG O2 Sat (Calc) VBG Base Excess VBG Potassium Hgb O2 Saturation 93.5 L Sodium Chloride Glucose Lactate Mechanical Rate FiO2 40.0 Tidal Volume PEEP Potassium Carbon Dioxide Anion Gap BUN Creatinine Est GFR ( Amer) Est GFR (Non-Af Amer) Random Glucose Calcium Phosphorus Magnesium Total Bilirubin AST ALT Alkaline Phosphatase Lactate Dehydrogenase Total Creatine Kinase Troponin I Total Protein Albumin Globulin Albumin/Globulin Ratio Triglycerides Cholesterol LDL Cholesterol Direct HDL Cholesterol Lipase Free T4 TSH 3rd Generation Prolactin Beta HCG, Quant Arterial Blood Potassium Venous Blood Potassium Urine Color Urine Appearance Urine pH Ur Specific [place] Urine Protein Urine Glucose (UA) Urine Ketones Urine Blood Urine Nitrate Urine Bilirubin Urine Urobilinogen Ur Leukocyte Esterase Urine RBC Urine WBC Ur Epithelial Cells Amorphous Sediment Urine Bacteria Hyaline Casts Fine Granular Casts Urine Opiates Screen Urine Methadone Screen Ur Barbiturates Screen Ur Phencyclidine Scrn Ur Amphetamines Screen U Benzodiazepines Scrn U Oth Cocaine Metabols U Cannabinoids Screen Alcohol, Quantitative Blood Type Blood Type Confirm Antibody Screen BBK History Checked Assessment & Plan - Assessment and Plan (Free Text) Assessment: 57 year old female with PMH of LLE DVT and 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 Active treatment of ventilator dependent respiratory failure in setting of encephalopathy and septic shock requiring airway pr otection. Plan: -septic shock with multi-organ damage -DDx-pancreatitis, ischemic colitis, infectious colitis, ischemic event (TN, CVA, progression of DVT/PE given subtherapeutic INR 0.99 on admission) -CT C/A/P and U/S reviewed -no gallstones or sludge concerning for chol ecystitis, no biliary dilatation -no indication for EUS/ERCP -continue LR 150-200/hr for possible pancreatitis and septic shock, (5L total fluid bolus- NS and LR) -BUN and Hct improving -consider possibility of inflamed pancreas being reactive to underlying colitis -normal triglycerides, ETOH<10 -ordered LDH and Cdiff, salicylates, acetaminophen -check urine ethyl glucoronide for alcohol byproducts -on record review a year ago, drank on weekends up to five alcoholic drinks -panculture ordered, on merrem/vancomycin IV -recommend empiric Cdiff coverage with vancomycin PO -follow up ID recommendations -follow up MRI Brain, ECHO, EEG -CT head negative -first troponin baseline -on heparin drip -on vasopressor support -critical status, close monitoring of clinical course <Cirilo Do - Last Filed: 07/21/18 13:32> Meds - Medications Medications: Current Medications Aspirin (Aspirin) 325 mg PO DAILY [facility] Last Admin: 07/21/18 13:24 Dose: 325 mg Hydrocortisone Sodium Succinate (Solu-Cortef) 50 mg IVP Q6H [facility] Last Admin: 07/21/18 11:55 Dose: 50 mg NOREPINEPHRINE BIT/0.9 % NACL (Levophed 4 Mg/ 250 Ml Ns Premixed) 4 mg in 250 mls @ 15 mls/hr IV .[id number] PRN; Protocol PRN Reason: TITRATE PER MD ORDER Last Admin: 07/21/18 09:17 Dose: 12 mcg/min, 45 mls/hr Levetiracetam (Keppra 500mg Ivpb) 500 mg in 100 mls @ 400 mls/hr IV Q12 [facility] Last Admin: 07/21/18 09:20 Dose: 400 mls/hr Midazolam 100 mg/100ml in NS (Midazolam 100 Mg/100ml In Ns) 100 mg in 100 mls @ 1 mls/hr IV .Q24H PRN; Protocol PRN Reason: Sedation Heparin Sodium/Sodium Chloride (Heparin 84671 Units/250ml 1/2 Normal Saline) 25,000 units in 250 mls @ 7.348 mls/hr IV .Q24H PRN; Protocol PRN Reason: ADJUST RATE PER PROTOCOL Last Titration: 07/21/18 12:30 Dose: 12 units/kg/hr, 4.899 mls/hr Potassium Chloride (Potassium Chloride 20 Meq/100 Ml) 20 meq in 100 mls @ 50 mls/hr IVPB Q2H [facility] Stop: 07/21/18 13:29 Last Admin: 07/21/18 13:23 Dose: 50 mls/hr Vasopressin 20 units/ Dextrose 101 mls @ 9.09 mls/hr IV .Q11H7M [facility]; Protocol Last Admin: 07/21/18 11:20 Dose: 9.09 mls/hr Piperacillin Sod/Tazobactam Sod (Zosyn 3.375 In Ns 100ml) 100 mls @ 25 mls/hr IVPB Q12 [facility]; Protocol Stop: 07/30/18 12:21 Last Admin: 07/21/18 13:20 Dose: 25 mls/hr Sodium Bicarbonate 150 meq/ (Dextrose) 1,150 mls @ 150 mls/hr IV .Q7H40M [facility] Last Admin: 07/21/18 13:21 Dose: 150 mls/hr Fentanyl Citrate (Fentanyl Citrate/Sodium Chloride 1 Mg/100 Ml) 1,000 mcg in 100 mls @ 5 mls/hr IV .Q20H PRN; Protocol PRN Reason: TITRATE PER MD ORDER Last Admin: 07/21/18 13:17 Dose: 50 mcg/hr, 5 mls/hr Pantoprazole Sodium (Protonix Inj) 40 mg IVP Q12 [facility] Last Admin: 07/21/18 09:20 Dose: 40 mg Results - Vital Signs Recent Vital Signs: Last Vital Signs Temp 98.1 F 07/21/18 06:59 Pulse 109 H 07/21/18 06:59 Resp 24 07/21/18 07:46 BP 111/57 L 07/21/18 11:20 Pulse Ox 98 07/21/18 06:00 - Labs Result Diagrams: 07/21/18 05:00 07/21/18 06:00 Labs: Laboratory Results - last 24 hr 07/20/18 07/20/18 07/20/18 14:10 16:01 16:01 WBC RBC Hgb Hct MCV MCH MCHC RDW Plt Count MPV PT 11.3 INR 0.99 APTT 34.6 pCO2 23 L pO2 689.0 H HCO3 9.9 L* ABG pH 7.24 L ABG Total CO2 10.6 L ABG O2 Saturation 100.5 H ABG O2 Content ABG Base Excess -15.6 L ABG Hemoglobin ABG Carboxyhemoglobin POC ABG HHb (Measured) ABG Methemoglobin ABG O2 Capacity ABG Potassium 1.4 L* VBG pH VBG pCO2 VBG HCO3 VBG Total CO2 VBG O2 Sat (Calc) VBG Base Excess VBG Potassium Hgb O2 Saturation Sodium 142.0 Chloride 111.0 H Glucose 106 H Lactate 1.1 Mechanical Rate 16 FiO2 100.0 Tidal Volume 400 PEEP 5 Potassium Carbon Dioxide Anion Gap BUN Creatinine Est GFR ( Amer) Est GFR (Non-Af Amer) Random Glucose Calcium Phosphorus Magnesium Total Bilirubin AST ALT Alkaline Phosphatase Lactate Dehydrogenase Troponin I Total Protein Albumin Globulin Albumin/Globulin Ratio Triglycerides Cholesterol LDL Cholesterol Direct HDL Cholesterol Lipase Free T4 1.51 TSH 3rd Generation 5.08 H Prolactin Arterial Blood Potassium 1.4 L* Venous Blood Potassium Urine Color Urine Appearance Urine pH Ur Specific [place] Urine Protein Urine Glucose (UA) Urine Ketones Urine Blood Urine Nitrate Urine Bilirubin Urine Urobilinogen Ur Leukocyte Esterase Urine RBC Urine WBC Ur Epithelial Cells Amorphous Sediment Urine Bacteria Hyaline Casts Fine Granular Casts Urine Opiates Screen Urine Methadone Screen Ur Barbiturates Screen Ur Phencyclidine Scrn Ur Amphetamines Screen U Benzodiazepines Scrn U Oth Cocaine Metabols U Cannabinoids Screen Blood Type Blood Type Confirm Antibody Screen BBK History Checked 07/20/18 07/20/18 07/20/18 16:01 16:01 21:33 WBC RBC Hgb Hct MCV MCH MCHC RDW Plt Count MPV PT INR APTT pCO2 pO2 215 H HCO3 ABG pH ABG Total CO2 ABG O2 Saturation ABG O2 Content ABG Base Excess ABG Hemoglobin ABG Carboxyhemoglobin POC ABG HHb (Measured) ABG Methemoglobin ABG O2 Capacity ABG Potassium VBG pH 7.23 L VBG pCO2 22.0 L VBG HCO3 9.2 L VBG Total CO2 9.9 L VBG O2 Sat (Calc) 99.9 H VBG Base Excess -16.4 L VBG Potassium 1.7 L* Hgb O2 Saturation Sodium 145.0 144 Chloride 108.0 H 115 H D Glucose 98 Lactate 1.2 Mechanical Rate FiO2 21.0 Tidal Volume PEEP Potassium 2.0 L* D Carbon Dioxide 12 L Anion Gap 20 BUN 27 H Creatinine 1.4 H Est GFR ( Amer) 47 Est GFR (Non-Af Amer) 39 Random Glucose 80 Calcium 7.1 L Phosphorus 5.0 H Magnesium 1.3 L Total Bilirubin 0.4 AST 33 ALT 26 Alkaline Phosphatase 69 Lactate Dehydrogenase Troponin I 0.01 D Total Protein 4.6 L Albumin 2.3 L Globulin 2.3 Albumin/Globulin Ratio 1.0 L Triglycerides Cholesterol LDL Cholesterol Direct HDL Cholesterol Lipase Free T4 TSH 3rd Generation Prolactin 98.1 H Arterial Blood Potassium Venous Blood Potassium 1.7 L* Urine Color Urine Appearance Urine pH Ur Specific [place] Urine Protein Urine Glucose (UA) Urine Ketones Urine Blood Urine Nitrate Urine Bilirubin Urine Urobilinogen Ur Leukocyte Esterase Urine RBC Urine WBC Ur Epithelial Cells Amorphous Sediment Urine Bacteria Hyaline Casts Fine Granular Casts Urine Opiates Screen Urine Methadone Screen Ur Barbiturates Screen Ur Phencyclidine Scrn Ur Amphetamines Screen U Benzodiazepines Scrn U Oth Cocaine Metabols U Cannabinoids Screen Blood Type Blood Type Confirm Antibody Screen BBK History Checked 07/21/18 07/21/18 07/21/18 02:00 05:00 05:45 WBC 15.2 H RBC 3.56 Hgb 11.5 L D Hct 33.8 L MCV 94.9 MCH 32.3 MCHC 34.0 RDW 15.6 H Plt Count 172 MPV 11.5 H PT INR APTT 130.0 H* pCO2 23 L pO2 52.0 L HCO3 10.3 L ABG pH 7.26 L ABG Total CO2 11.0 L ABG O2 Saturation 87.3 L ABG O2 Content ABG Base Excess -14.8 L ABG Hemoglobin ABG Carboxyhemoglobin POC ABG HHb (Measured) ABG Methemoglobin ABG O2 Capacity ABG Potassium 2.9 L VBG pH VBG pCO2 VBG HCO3 VBG Total CO2 VBG O2 Sat (Calc) VBG Base Excess VBG Potassium Hgb O2 Saturation Sodium 148.0 Chloride 115.0 H Glucose 64 L Lactate 1.4 Mechanical Rate FiO2 50.0 Tidal Volume PEEP Potassium Carbon Dioxide Anion Gap BUN Creatinine Est GFR ( Amer) Est GFR (Non-Af Amer) Random Glucose Calcium Phosphorus Magnesium Total Bilirubin AST ALT Alkaline Phosphatase Lactate Dehydrogenase Troponin I Total Protein Albumin Globulin Albumin/Globulin Ratio Triglycerides Cholesterol LDL Cholesterol Direct HDL Cholesterol Lipase Free T4 TSH 3rd Generation Prolactin Arterial Blood Potassium 2.9 L Venous Blood Potassium Urine Color Urine Appearance Urine pH Ur Specific [place] Urine Protein Urine Glucose (UA) Urine Ketones Urine Blood Urine Nitrate Urine Bilirubin Urine Urobilinogen Ur Leukocyte Esterase Urine RBC Urine WBC Ur Epithelial Cells Amorphous Sediment Urine Bacteria Hyaline Casts Fine Granular Casts Urine Opiates Screen Urine Methadone Screen Ur Barbiturates Screen Ur Phencyclidine Scrn Ur Amphetamines Screen U Benzodiazepines Scrn U Oth Cocaine Metabols U Cannabinoids Screen Blood Type Blood Type Confirm Antibody Screen BBK History Checked 07/21/18 07/21/18 07/21/18 06:00 06:00 06:00 WBC RBC Hgb Hct MCV MCH MCHC RDW Plt Count MPV PT INR APTT pCO2 pO2 HCO3 ABG pH ABG Total CO2 ABG O2 Saturation ABG O2 Content ABG Base Excess ABG Hemoglobin ABG Carboxyhemoglobin POC ABG HHb (Measured) ABG Methemoglobin ABG O2 Capacity ABG Potassium VBG pH VBG pCO2 VBG HCO3 VBG Total CO2 VBG O2 Sat (Calc) VBG Base Excess VBG Potassium Hgb O2 Saturation Sodium 145 Chloride 118 H Glucose Lactate Mechanical Rate FiO2 Tidal Volume PEEP Potassium 3.1 L Carbon Dioxide 12 L Anion Gap 18 BUN 25 H Creatinine 1.5 H Est GFR ( Amer) 43 Est GFR (Non-Af Amer) 36 Random Glucose 77 Calcium 6.9 L* Phosphorus 4.1 Magnesium 2.0 Total Bilirubin 0.4 AST 35 ALT 32 Alkaline Phosphatase 63 Lactate Dehydrogenase Troponin I Total Protein 4.7 L Albumin 2.3 L Globulin 2.4 Albumin/Globulin Ratio 0.9 L Triglycerides Cholesterol LDL Cholesterol Direct HDL Cholesterol Lipase 5554 H Free T4 TSH 3rd Generation Prolactin Arterial Blood Potassium Venous Blood Potassium Urine Color Urine Appearance Urine pH Ur Specific [place] Urine Protein Urine Glucose (UA) Urine Ketones Urine Blood Urine Nitrate Urine Bilirubin Urine Urobilinogen Ur Leukocyte Esterase Urine RBC Urine WBC Ur Epithelial Cells Amorphous Sediment Urine Bacteria Hyaline Casts Fine Granular Casts Urine Opiates Screen Negative Urine Methadone Screen Negative Ur Barbiturates Screen Negative Ur Phencyclidine Scrn Negative Ur Amphetamines Screen Negative U Benzodiazepines Scrn Negative U Oth Cocaine Metabols Negative U Cannabinoids Screen Positive H Blood Type O POSITIVE Blood Type Confirm Antibody Screen Negative BBK History Checked No verified bt 07/21/18 07/21/18 07/21/18 06:00 06:30 06:30 WBC RBC Hgb Hct MCV MCH MCHC RDW Plt Count MPV PT INR APTT pCO2 pO2 HCO3 ABG pH ABG Total CO2 ABG O2 Saturation ABG O2 Content ABG Base Excess ABG Hemoglobin ABG Carboxyhemoglobin POC ABG HHb (Measured) ABG Methemoglobin ABG O2 Capacity ABG Potassium VBG pH VBG pCO2 VBG HCO3 VBG Total CO2 VBG O2 Sat (Calc) VBG Base Excess VBG Potassium Hgb O2 Saturation Sodium Chloride Glucose Lactate Mechanical Rate FiO2 Tidal Volume PEEP Potassium Carbon Dioxide Anion Gap BUN Creatinine Est GFR ( Amer) Est GFR (Non-Af Amer) Random Glucose Calcium Phosphorus Magnesium Total Bilirubin AST ALT Alkaline Phosphatase Lactate Dehydrogenase 907 H Troponin I Total Protein Albumin Globulin Albumin/Globulin Ratio Triglycerides 92 Cholesterol 100 L LDL Cholesterol Direct 43 HDL Cholesterol 59 Lipase Free T4 TSH 3rd Generation Prolactin Arterial Blood Potassium Venous Blood Potassium Urine Color Yellow Urine Appearance Sl cloudy Urine pH 6.0 Ur Specific [place] 1.025 Urine Protein 30 H Urine Glucose (UA) Negative Urine Ketones 15 H Urine Blood Moderate H Urine Nitrate Negative Urine Bilirubin Large H Urine Urobilinogen 0.2 Ur Leukocyte Esterase Small H Urine RBC 2 - 5 Urine WBC 5 - 10 Ur Epithelial Cells 1 - 3 Amorphous Sediment Few Urine Bacteria Mod Hyaline Casts 1-3 Fine Granular Casts 2 - 5 Urine Opiates Screen Urine Methadone Screen Ur Barbiturates Screen Ur Phencyclidine Scrn Ur Amphetamines Screen U Benzodiazepines Scrn U Oth Cocaine Metabols U Cannabinoids Screen Blood Type Blood Type Confirm Antibody Screen BBK History Checked 07/21/18 07/21/18 07/21/18 06:45 10:45 11:35 WBC RBC Hgb Hct MCV MCH MCHC RDW Plt Count MPV PT INR APTT 181.4 H* pCO2 19 L* pO2 67.0 L HCO3 8.9 L* ABG pH 7.28 L ABG Total CO2 9.5 L ABG O2 Saturation 95.4 ABG O2 Content 14.2 L ABG Base Excess -15.9 L ABG Hemoglobin 10.8 L ABG Carboxyhemoglobin 1.4 POC ABG HHb (Measured) 4.5 ABG Methemoglobin 0.6 ABG O2 Capacity 14.9 L ABG Potassium VBG pH VBG pCO2 VBG HCO3 VBG Total CO2 VBG O2 Sat (Calc) VBG Base Excess VBG Potassium Hgb O2 Saturation 93.5 L Sodium Chloride Glucose Lactate Mechanical Rate FiO2 40.0 Tidal Volume PEEP Potassium Carbon Dioxide Anion Gap BUN Creatinine Est GFR ( Amer) Est GFR (Non-Af Amer) Random Glucose Calcium Phosphorus Magnesium Total Bilirubin AST ALT Alkaline Phosphatase Lactate Dehydrogenase Troponin I Total Protein Albumin Globulin Albumin/Globulin Ratio Triglycerides Cholesterol LDL Cholesterol Direct HDL Cholesterol Lipase Free T4 TSH 3rd Generation Prolactin Arterial Blood Potassium Venous Blood Potassium Urine Color Urine Appearance Urine pH Ur Specific [place] Urine Protein Urine Glucose (UA) Urine Ketones Urine Blood Urine Nitrate Urine Bilirubin Urine Urobilinogen Ur Leukocyte Esterase Urine RBC Urine WBC Ur Epithelial Cells Amorphous Sediment Urine Bacteria Hyaline Casts Fine Granular Casts Urine Opiates Screen Urine Methadone Screen Ur Barbiturates Screen Ur Phencyclidine Scrn Ur Amphetamines Screen U Benzodiazepines Scrn U Oth Cocaine Metabols U Cannabinoids Screen Blood Type Blood Type Confirm O POSITIVE Antibody Screen BBK History Checked Attending/Attestation - Attestation I have fully participated in the care of the patient.: Yes I have reviewed all pertinent clinical information: Yes Notes (Text): 07/21/18 13:29 DVT/PE Altered mental status Sepsis Respiratory failure, s/p intubation Abdominal pain - colitis, pancreatitis Abdominal US reviewed by me showing normal caliber CBD, no cholelithiasis - NPO - Continue with antibiotic therapy, monitor blood cultures - Continue with IVF hydration therapy - Obtain stool studies - Vasopressor and ventilator management as per critical care team - Will continue to monitor patient clinical course
--- NOTE | 2018-07-21 12:13 | PN ---
DATE: 07/21/2018 SUBJECTIVE: The patient is seen and examined at the bedside. She is off sedation and she was put on pressure support trial 5/5 with FiO2 of 40 percent. On that setting, her rapid shallow breathing index is 48, end-tidal CO2 on the monitor is 17, oxygen saturation 99 percent. The patient is on 12 mcg per minute of Levophed. PHYSICAL EXAMINATION: VITAL SIGNS: Her blood pressure is 91/52, respiratory rate 24, heart rate 93, temperature 97.9. She made only 100 mL of urine overnight. Bedside ultrasound revealed IVC less than 2 cm and less than 50 percent collapse on inspiration; however, the patient is on positive pressure ventilation. The patient is receiving 2 liters of lactated Ringer's bolus and maintenance IV fluids were switched from normal saline to lactated Ringer's at 150 mL/hour. ENT: Head and neck atraumatic. The patient is intubated. LUNGS: Clear to auscultation bilaterally. HEART: Regular rate and rhythm. S1, S2 normal. ABDOMEN: Soft, nontender and nondistended. MUSCULOSKELETAL: No C/C/E. NEUROLOGIC: The patient was seen moving all extremities spontaneously. SKIN: Moist. PSYCHIATRIC: The patient is alert, awake and following commands. Appears to be comfortable despite endotracheal intubation. Chest x-ray showed no active pulmonary disease, no vascular congestion. Endotracheal tube is in right position. NG tube also in the right position. LABORATORY DATA: WBC 15.2, down from 17.7; hemoglobin 11.5, down from 16.2 (the patient received about 4 liters of fluid yesterday); platelet count 172. Sodium 145; potassium 3.1; chloride 118; BUN 25; creatinine 1.5, down from 1.4; glucose 77. AST 35, ALT 32, total bilirubin 0.4. Lipase yesterday was 2184, today's lipase is pending. Blood gas early in the morning showed 7.26/23/52 on 50 percent and O2 sat 87. However, her oxygen saturation on the monitor right now is 98 and it is on 40 percent FiO2. The patient is still very comfortable. Chest, abdomen and pelvis CTA showed gallbladder filled with dense large some pericholecystic fluid, possible cholecystitis. There is a mild diffuse swelling of the pancreas when compared to the study from 2017. There is also some edema in the fat planes around the pancreatic head. Findings are suspicious for pancreatitis, especially given the history of elevated lipase, mild mural thickening throughout the colon, possible colitis. MEDICATIONS: Aspirin, heparin drip, hydrocortisone 50 mg IV every 6, Keppra 500 mg IV every 12, lactated Ringer's boluses, norepinephrine drip, Protonix, potassium supplementation, vancomycin, vasopressin, meropenem. ASSESSMENT AND PLAN: This is a 57-year-old lady who initially presented with unresponsiveness in profound distributive shock with multiorgan system failure including encephalopathy, respiratory failure, acute kidney injury. Neuro: The patient is off sedation and EEG was done yesterday. The patient is alert, awake, following commands and moving all extremities spontaneously and on command. She is very comfortable. CT head yesterday did not reveal any acute intracranial pathology. Pulmonary: The patient tolerated pressure support trial well. She is on 5/5 with FiO2 of 40 percent. Oxygen saturation on that setting is 98 percent. Her chest x-ray appears to be clear without signs of CHF. We will continue with head of bed elevated >35 degrees and oral hygiene. Once shock resolves, conservative fluid management will be instituted. Meanwhile, conservative oxygen management will be continued. Cardiovascular: The patient presented with distributive shock. She is on 12 mcg per minute of Levophed. We will add vasopressin 0.03 units per minute and stress dose steroids. Bedside echocardiogram revealed normal left ventricular systolic function and well-shin right ventricle without significant dilatation, while IVC respiratory variation is less than 50 percent and IVC diameter is less than 2 cm. Ultrasound findings should be interpreted with caution due to combination factors including the fact that the patient is on positive pressure ventilation. We will give fluid bolus and reassess hemodynamical status as well as urine output. Formal echocardiogram is pending as well. The patient had a history of DVT, PE in the past and was on therapeutic anticoagulation. Heparin drip was started empirically and we will continue that for now. Gastrointestinal: The patient has acute pancreatitis and signs suggestive of acute cholecystitis with or without choledocholithiasis. Gallbladder ultrasound was ordered. GI consult was ordered. The patient is on antibiotics for presumed colitis observed on CAT scan of the abdomen. We will also get surgical consult on standby. Patient will remain n.p.o. for now. Protonix for GI prophylaxis and IV fluids. Infectious Disease: The patient has some leukocytosis and is in distributive shock. The patient will be covered with broad-spectrum antibiotics. Septic workup was sent. Procalcitonin is highly elevated; however, in the setting of acute pancreatitis and acute kidney injury, it may be falsely elevated. Nevertheless, ID consult was called. Blood culture and urine culture are pending. Renal: The patient has acute kidney injury/oliguria. Nephrology consult was called, bolus of lactated Ringer's is ongoing. We will reassess urine output and creatinine level shortly thereafter. We will try to avoid hyperchloremia. Maintain mean arterial pressure more than 65. We will try to keep euglycemia and euvolemia. Endocrine. The patient is on stress dose steroids. We will try to maintain blood glucose within 140-180 range according to night sugar trial. Accu-Chek will be every 4 hours. ccm time 40 min Andrew Bynum MD MTDE[facility]ver
[2018-07-21] MEDS ORDERED: Piperacillin/Tazobact 3.375 gm 100 ML IVPB SCH (12:20)
[2018-07-21] MEDS: Fentanyl 1000mcg/100ml NS 1,000 MCG/100 ML BAG IV PRN (13:17)
[2018-07-21] MEDS: Sodium Bicarbonate 8.4% 150 MEQ in Dextrose 5% In Water 1,000 ML IV SCH ×2 (13:21→21:45)
--- NOTE | 2018-07-21 13:43 | CP.PCM.CON ---
History of Present Illness - History of Present Illness History of Present Illness: Surgery Consult Note HPI: Patient is a 57 y/o female with PMHx of asthma, LLE DVT, and Right pulmonary artery PE (Jul 2017) who was admitted 07/20, yesterday, for altered mental status after being found unresponsive at home after 4 days of lack of response from a family member, per past notes. Surgery being consulted for pancreatitis. Patient's history was unable to be obtained due to her condition. Per RN, patient was agitated this morning, but now has calmed down. No BM yet. Patient's daughter was present earlier but has left recently. ROS: unable to be obtained due to patient condition PMHx: per EMR (see above) PSHx: per EMR - left leg surgery as a child SocHx: per EMR - weekend EtOH, tobacco 1/2 ppd for a year, and marijuana on drug screen Meds: on Coumadin at home per ICU team Allergies: NKDA Review of Systems - Review of Systems Systems not reviewed;Unavailable: Altered Mental Status - Constitutional Constitutional: As Per HPI Past Patient History - Infectious Disease Hx of Infectious Diseases: None - Past Social History Smoking Status: Current Some Days Smoker - CARDIAC Hx Cardiac Disorders: No Hx Peripheral Vascular Disease: Yes (DVT ON COUMADIN) - PULMONARY Hx Respiratory Disorders: Yes (SMOKES CIGARETTES HALF A PPD.) Hx Asthma: Yes Other/Comment: PULMONARY EMBOLISM - NEUROLOGICAL Hx Neurological Disorder: No - HEENT Hx HEENT Problems: No - RENAL Hx Chronic Kidney Disease: No - ENDOCRINE/METABOLIC Hx Endocrine Disorders: No - HEMATOLOGICAL/ONCOLOGICAL Hx Blood Disorders: Yes Other/Comment: DVT - INTEGUMENTARY Hx Dermatological Problems: Yes Other/Comment: 07-20-18 MULTIPLE REDDENED SKIN ALL OVER BODY,LEGS ARMS. DTI FROM LAYING ON FLOOR FOR ALMOST 4 D OR MORE. WAS FD ON FLOOR BY SIBLING. BILATERAL SHOULDER BLADE,BILATERAL ELBOW,SPINE,LOWER BACK.BILATERAL HIP, BILATERAL KNEE, BILATERAL MALLEOLAR BONE, SACRAL AREA WITH 2 SMALL NECROTIC TISSUE.,BILATERAL BUTTOCKS AREA. HAS DTI. SKIN IS RED SWOLLEN.COOL SKIN. - MUSCULOSKELETAL/RHEUMATOLOGICAL Hx Musculoskeletal Disorders: Yes Hx Falls: Yes Hx Unsteady Gait: Yes - GASTROINTESTINAL Hx Gastrointestinal Disorders: Yes (CLOLITIS?,CHOLECYSTITIS? PANCREATITIS?) Hx Gastroesophageal Reflux: Yes - GENITOURINARY/GYNECOLOGICAL Hx Genitourinary Disorders: No - PSYCHIATRIC Hx Psychophysiologic Disorder: Yes Other/Comment: recently lost , decrease appetite, half pack smoker - SURGICAL HISTORY Hx Surgeries: No - ANESTHESIA Hx Anesthesia: No Meds Allergies/Adverse Reactions: Allergies Allergy/AdvReac Type Severity Reaction Status Date / Time No Known Allergies Allergy Verified 07/20/18 16:33 - Medications Medications: Current Medications Aspirin (Aspirin) 325 mg PO DAILY [facility] Last Admin: 07/21/18 13:24 Dose: 325 mg Hydrocortisone Sodium Succinate (Solu-Cortef) 50 mg IVP Q6H [facility] Last Admin: 07/21/18 11:55 Dose: 50 mg NOREPINEPHRINE BIT/0.9 % NACL (Levophed 4 Mg/ 250 Ml Ns Premixed) 4 mg in 250 mls @ 15 mls/hr IV .[id number] PRN; Protocol PRN Reason: TITRATE PER MD ORDER Last Admin: 07/21/18 09:17 Dose: 12 mcg/min, 45 mls/hr Levetiracetam (Keppra 500mg Ivpb) 500 mg in 100 mls @ 400 mls/hr IV Q12 [facility] Last Admin: 07/21/18 09:20 Dose: 400 mls/hr Midazolam 100 mg/100ml in NS (Midazolam 100 Mg/100ml In Ns) 100 mg in 100 mls @ 1 mls/hr IV .Q24H PRN; Protocol PRN Reason: Sedation Heparin Sodium/Sodium Chloride (Heparin 40322 Units/250ml 1/2 Normal Saline) 25,000 units in 250 mls @ 7.348 mls/hr IV .Q24H PRN; Protocol PRN Reason: ADJUST RATE PER PROTOCOL Last Titration: 07/21/18 12:30 Dose: 12 units/kg/hr, 4.899 mls/hr Vasopressin 20 units/ Dextrose 101 mls @ 9.09 mls/hr IV .Q11H7M [facility]; Protocol Last Admin: 07/21/18 11:20 Dose: 9.09 mls/hr Piperacillin Sod/Tazobactam Sod (Zosyn 3.375 In Ns 100ml) 100 mls @ 25 mls/hr IVPB Q12 [facility]; Protocol Stop: 07/30/18 12:21 Last Admin: 07/21/18 13:20 Dose: 25 mls/hr Sodium Bicarbonate 150 meq/ (Dextrose) 1,150 mls @ 150 mls/hr IV .Q7H40M [facility] Last Admin: 07/21/18 13:21 Dose: 150 mls/hr Fentanyl Citrate (Fentanyl Citrate/Sodium Chloride 1 Mg/100 Ml) 1,000 mcg in 100 mls @ 5 mls/hr IV .Q20H PRN; Protocol PRN Reason: TITRATE PER MD ORDER Last Admin: 07/21/18 13:17 Dose: 50 mcg/hr, 5 mls/hr Pantoprazole Sodium (Protonix Inj) 40 mg IVP Q12 [facility] Last Admin: 07/21/18 09:20 Dose: 40 mg Physical Exam - Constitutional Additional comments: Woman on mechanical ventilator, unable to speak - ENT Exam Additional comments: poor dentition - Neck Exam Neck exam: Positive for: Normal Inspection - Respiratory Exam Respiratory Exam: NORMAL BREATHING PATTERN Additional comments: on mechanical ventilator - Cardiovascular Exam Cardiovascular Exam: Tachycardia, REGULAR RHYTHM - GI/Abdominal Exam GI & Abdominal Exam: Soft, Tenderness (patient hesitated while all four quadr ants were being palpated). absent: Hernia, Mass, Rebound - Extremities Exam Extremities exam: Positive for: normal capillary refill, normal inspection - Psychiatric Exam Psychiatric exam: Agitated (Patient periodically hesitated by moving her arms throughout physical exam) - Skin Skin Exam: Dry, Intact, Normal Color, Warm Results - Vital Signs Recent Vital Signs: Last Vital Signs Temp 98.1 F 07/21/18 06:59 Pulse 109 H 07/21/18 06:59 Resp 24 07/21/18 07:46 BP 111/57 L 07/21/18 11:20 Pulse Ox 98 07/21/18 06:00 - Labs Result Diagrams: 07/21/18 05:00 07/21/18 06:00 Labs: Laboratory Results - last 24 hr 07/20/18 07/20/18 07/20/18 14:10 16:01 16:01 WBC RBC Hgb Hct MCV MCH MCHC RDW Plt Count MPV PT 11.3 INR 0.99 APTT 34.6 pCO2 23 L pO2 689.0 H HCO3 9.9 L* ABG pH 7.24 L ABG Total CO2 10.6 L ABG O2 Saturation 100.5 H ABG O2 Content ABG Base Excess -15.6 L ABG Hemoglobin ABG Carboxyhemoglobin POC ABG HHb (Measured) ABG Methemoglobin ABG O2 Capacity ABG Potassium 1.4 L* VBG pH VBG pCO2 VBG HCO3 VBG Total CO2 VBG O2 Sat (Calc) VBG Base Excess VBG Potassium Hgb O2 Saturation Sodium 142.0 Chloride 111.0 H Glucose 106 H Lactate 1.1 Mechanical Rate 16 FiO2 100.0 Tidal Volume 400 PEEP 5 Potassium Carbon Dioxide Anion Gap BUN Creatinine Est GFR ( Amer) Est GFR (Non-Af Amer) Random Glucose Calcium Phosphorus Magnesium Total Bilirubin AST ALT Alkaline Phosphatase Lactate Dehydrogenase Troponin I Total Protein Albumin Globulin Albumin/Globulin Ratio Triglycerides Cholesterol LDL Cholesterol Direct HDL Cholesterol Lipase Free T4 1.51 TSH 3rd Generation 5.08 H Prolactin Arterial Blood Potassium 1.4 L* Venous Blood Potassium Urine Color Urine Appearance Urine pH Ur Specific [place] Urine Protein Urine Glucose (UA) Urine Ketones Urine Blood Urine Nitrate Urine Bilirubin Urine Urobilinogen Ur Leukocyte Esterase Urine RBC Urine WBC Ur Epithelial Cells Amorphous Sediment Urine Bacteria Hyaline Casts Fine Granular Casts Urine Opiates Screen Urine Methadone Screen Ur Barbiturates Screen Ur Phencyclidine Scrn Ur Amphetamines Screen U Benzodiazepines Scrn U Oth Cocaine Metabols U Cannabinoids Screen Blood Type Blood Type Confirm Antibody Screen BBK History Checked 07/20/18 07/20/18 07/20/18 16:01 16:01 21:33 WBC RBC Hgb Hct MCV MCH MCHC RDW Plt Count MPV PT INR APTT pCO2 pO2 215 H HCO3 ABG pH ABG Total CO2 ABG O2 Saturation ABG O2 Content ABG Base Excess ABG Hemoglobin ABG Carboxyhemoglobin POC ABG HHb (Measured) ABG Methemoglobin ABG O2 Capacity ABG Potassium VBG pH 7.23 L VBG pCO2 22.0 L VBG HCO3 9.2 L VBG Total CO2 9.9 L VBG O2 Sat (Calc) 99.9 H VBG Base Excess -16.4 L VBG Potassium 1.7 L* Hgb O2 Saturation Sodium 145.0 144 Chloride 108.0 H 115 H D Glucose 98 Lactate 1.2 Mechanical Rate FiO2 21.0 Tidal Volume PEEP Potassium 2.0 L* D Carbon Dioxide 12 L Anion Gap 20 BUN 27 H Creatinine 1.4 H Est GFR ( Amer) 47 Est GFR (Non-Af Amer) 39 Random Glucose 80 Calcium 7.1 L Phosphorus 5.0 H Magnesium 1.3 L Total Bilirubin 0.4 AST 33 ALT 26 Alkaline Phosphatase 69 Lactate Dehydrogenase Troponin I 0.01 D Total Protein 4.6 L Albumin 2.3 L Globulin 2.3 Albumin/Globulin Ratio 1.0 L Triglycerides Cholesterol LDL Cholesterol Direct HDL Cholesterol Lipase Free T4 TSH 3rd Generation Prolactin 98.1 H Arterial Blood Potassium Venous Blood Potassium 1.7 L* Urine Color Urine Appearance Urine pH Ur Specific [place] Urine Protein Urine Glucose (UA) Urine Ketones Urine Blood Urine Nitrate Urine Bilirubin Urine Urobilinogen Ur Leukocyte Esterase Urine RBC Urine WBC Ur Epithelial Cells Amorphous Sediment Urine Bacteria Hyaline Casts Fine Granular Casts Urine Opiates Screen Urine Methadone Screen Ur Barbiturates Screen Ur Phencyclidine Scrn Ur Amphetamines Screen U Benzodiazepines Scrn U Oth Cocaine Metabols U Cannabinoids Screen Blood Type Blood Type Confirm Antibody Screen BBK History Checked 07/21/18 07/21/18 07/21/18 02:00 05:00 05:45 WBC 15.2 H RBC 3.56 Hgb 11.5 L D Hct 33.8 L MCV 94.9 MCH 32.3 MCHC 34.0 RDW 15.6 H Plt Count 172 MPV 11.5 H PT INR APTT 130.0 H* pCO2 23 L pO2 52.0 L HCO3 10.3 L ABG pH 7.26 L ABG Total CO2 11.0 L ABG O2 Saturation 87.3 L ABG O2 Content ABG Base Excess -14.8 L ABG Hemoglobin ABG Carboxyhemoglobin POC ABG HHb (Measured) ABG Methemoglobin ABG O2 Capacity ABG Potassium 2.9 L VBG pH VBG pCO2 VBG HCO3 VBG Total CO2 VBG O2 Sat (Calc) VBG Base Excess VBG Potassium Hgb O2 Saturation Sodium 148.0 Chloride 115.0 H Glucose 64 L Lactate 1.4 Mechanical Rate FiO2 50.0 Tidal Volume PEEP Potassium Carbon Dioxide Anion Gap BUN Creatinine Est GFR ( Amer) Est GFR (Non-Af Amer) Random Glucose Calcium Phosphorus Magnesium Total Bilirubin AST ALT Alkaline Phosphatase Lactate Dehydrogenase Troponin I Total Protein Albumin Globulin Albumin/Globulin Ratio Triglycerides Cholesterol LDL Cholesterol Direct HDL Cholesterol Lipase Free T4 TSH 3rd Generation Prolactin Arterial Blood Potassium 2.9 L Venous Blood Potassium Urine Color Urine Appearance Urine pH Ur Specific [place] Urine Protein Urine Glucose (UA) Urine Ketones Urine Blood Urine Nitrate Urine Bilirubin Urine Urobilinogen Ur Leukocyte Esterase Urine RBC Urine WBC Ur Epithelial Cells Amorphous Sediment Urine Bacteria Hyaline Casts Fine Granular Casts Urine Opiates Screen Urine Methadone Screen Ur Barbiturates Screen Ur Phencyclidine Scrn Ur Amphetamines Screen U Benzodiazepines Scrn U Oth Cocaine Metabols U Cannabinoids Screen Blood Type Blood Type Confirm Antibody Screen BBK History Checked 07/21/18 07/21/18 07/21/18 06:00 06:00 06:00 WBC RBC Hgb Hct MCV MCH MCHC RDW Plt Count MPV PT INR APTT pCO2 pO2 HCO3 ABG pH ABG Total CO2 ABG O2 Saturation ABG O2 Content ABG Base Excess ABG Hemoglobin ABG Carboxyhemoglobin POC ABG HHb (Measured) ABG Methemoglobin ABG O2 Capacity ABG Potassium VBG pH VBG pCO2 VBG HCO3 VBG Total CO2 VBG O2 Sat (Calc) VBG Base Excess VBG Potassium Hgb O2 Saturation Sodium 145 Chloride 118 H Glucose Lactate Mechanical Rate FiO2 Tidal Volume PEEP Potassium 3.1 L Carbon Dioxide 12 L Anion Gap 18 BUN 25 H Creatinine 1.5 H Est GFR ( Amer) 43 Est GFR (Non-Af Amer) 36 Random Glucose 77 Calcium 6.9 L* Phosphorus 4.1 Magnesium 2.0 Total Bilirubin 0.4 AST 35 ALT 32 Alkaline Phosphatase 63 Lactate Dehydrogenase Troponin I Total Protein 4.7 L Albumin 2.3 L Globulin 2.4 Albumin/Globulin Ratio 0.9 L Triglycerides Cholesterol LDL Cholesterol Direct HDL Cholesterol Lipase 5554 H Free T4 TSH 3rd Generation Prolactin Arterial Blood Potassium Venous Blood Potassium Urine Color Urine Appearance Urine pH Ur Specific [place] Urine Protein Urine Glucose (UA) Urine Ketones Urine Blood Urine Nitrate Urine Bilirubin Urine Urobilinogen Ur Leukocyte Esterase Urine RBC Urine WBC Ur Epithelial Cells Amorphous Sediment Urine Bacteria Hyaline Casts Fine Granular Casts Urine Opiates Screen Negative Urine Methadone Screen Negative Ur Barbiturates Screen Negative Ur Phencyclidine Scrn Negative Ur Amphetamines Screen Negative U Benzodiazepines Scrn Negative U Oth Cocaine Metabols Negative U Cannabinoids Screen Positive H Blood Type O POSITIVE Blood Type Confirm Antibody Screen Negative BBK History Checked No verified bt 07/21/18 07/21/18 07/21/18 06:00 06:30 06:30 WBC RBC Hgb Hct MCV MCH MCHC RDW Plt Count MPV PT INR APTT pCO2 pO2 HCO3 ABG pH ABG Total CO2 ABG O2 Saturation ABG O2 Content ABG Base Excess ABG Hemoglobin ABG Carboxyhemoglobin POC ABG HHb (Measured) ABG Methemoglobin ABG O2 Capacity ABG Potassium VBG pH VBG pCO2 VBG HCO3 VBG Total CO2 VBG O2 Sat (Calc) VBG Base Excess VBG Potassium Hgb O2 Saturation Sodium Chloride Glucose Lactate Mechanical Rate FiO2 Tidal Volume PEEP Potassium Carbon Dioxide Anion Gap BUN Creatinine Est GFR ( Amer) Est GFR (Non-Af Amer) Random Glucose Calcium Phosphorus Magnesium Total Bilirubin AST ALT Alkaline Phosphatase Lactate Dehydrogenase 907 H Troponin I Total Protein Albumin Globulin Albumin/Globulin Ratio Triglycerides 92 Cholesterol 100 L LDL Cholesterol Direct 43 HDL Cholesterol 59 Lipase Free T4 TSH 3rd Generation Prolactin Arterial Blood Potassium Venous Blood Potassium Urine Color Yellow Urine Appearance Sl cloudy Urine pH 6.0 Ur Specific [place] 1.025 Urine Protein 30 H Urine Glucose (UA) Negative Urine Ketones 15 H Urine Blood Moderate H Urine Nitrate Negative Urine Bilirubin Large H Urine Urobilinogen 0.2 Ur Leukocyte Esterase Small H Urine RBC 2 - 5 Urine WBC 5 - 10 Ur Epithelial Cells 1 - 3 Amorphous Sediment Few Urine Bacteria Mod Hyaline Casts 1-3 Fine Granular Casts 2 - 5 Urine Opiates Screen Urine Methadone Screen Ur Barbiturates Screen Ur Phencyclidine Scrn Ur Amphetamines Screen U Benzodiazepines Scrn U Oth Cocaine Metabols U Cannabinoids Screen Blood Type Blood Type Confirm Antibody Screen BBK History Checked 07/21/18 07/21/18 07/21/18 06:45 10:45 11:35 WBC RBC Hgb Hct MCV MCH MCHC RDW Plt Count MPV PT INR APTT 181.4 H* pCO2 19 L* pO2 67.0 L HCO3 8.9 L* ABG pH 7.28 L ABG Total CO2 9.5 L ABG O2 Saturation 95.4 ABG O2 Content 14.2 L ABG Base Excess -15.9 L ABG Hemoglobin 10.8 L ABG Carboxyhemoglobin 1.4 POC ABG HHb (Measured) 4.5 ABG Methemoglobin 0.6 ABG O2 Capacity 14.9 L ABG Potassium VBG pH VBG pCO2 VBG HCO3 VBG Total CO2 VBG O2 Sat (Calc) VBG Base Excess VBG Potassium Hgb O2 Saturation 93.5 L Sodium Chloride Glucose Lactate Mechanical Rate FiO2 40.0 Tidal Volume PEEP Potassium Carbon Dioxide Anion Gap BUN Creatinine Est GFR ( Amer) Est GFR (Non-Af Amer) Random Glucose Calcium Phosphorus Magnesium Total Bilirubin AST ALT Alkaline Phosphatase Lactate Dehydrogenase Troponin I Total Protein Albumin Globulin Albumin/Globulin Ratio Triglycerides Cholesterol LDL Cholesterol Direct HDL Cholesterol Lipase Free T4 TSH 3rd Generation Prolactin Arterial Blood Potassium Venous Blood Potassium Urine Color Urine Appearance Urine pH Ur Specific [place] Urine Protein Urine Glucose (UA) Urine Ketones Urine Blood Urine Nitrate Urine Bilirubin Urine Urobilinogen Ur Leukocyte Esterase Urine RBC Urine WBC Ur Epithelial Cells Amorphous Sediment Urine Bacteria Hyaline Casts Fine Granular Casts Urine Opiates Screen Urine Methadone Screen Ur Barbiturates Screen Ur Phencyclidine Scrn Ur Amphetamines Screen U Benzodiazepines Scrn U Oth Cocaine Metabols U Cannabinoids Screen Blood Type Blood Type Confirm O POSITIVE Antibody Screen BBK History Checked Assessment & Plan - Assessment and Plan (Free Text) Assessment: 57 y/o female with pancreatitis -07/21 AM lipase elevated at 5554, 07/21 abdominal US: distended gallbladder with upper limit normal mural thickness, 07/20 CTAP: mild diffuse pancreas swelling suspicious for pancreatitis, dense sludge gallbladder, possible karin cystitis -no gallstones appreciated on imaging, concern for acute cholecystitis is low -recommend HIDA to view any possibility of gallstones causing the pancreatitis -follow GI recommendations. GI already on case. -no surgical intervention at this time Danielle Bhandari PGY1
--- NOTE | 2018-07-21 14:27 | CARD ---
APPROVED REPORT Date of service: 07/21/2018 EKG Measurement Heart [id number] <Conclusion> Normal sinus rhythm Low voltage QRS Cannot rule out Anteroseptal infarct, age undetermined Abnormal ECG
--- NOTE | 2018-07-21 14:32 | CARD ---
APPROVED REPORT Date of service: 07/21/2018 EXAM: Two-dimensional and M-mode echocardiogram with Doppler and color Doppler. INDICATION BUBBLE STUDY..POSSIBLE STROKE W/HX OF DVT..R/O PFO 2D DIMENSIONS Left Atrium (2D)3.1 (1.6-4.0cm)IVSd0.8 (0.7-1.1cm) LVDd3.6 (3.9-5.9cm)PWd0.9 (0.7-1.1cm) LVDs2.3 (2.5-4.0cm)FS (%) 35.0 % LVEF (%)65.3 (>50%) M-Mode DIMENSIONS Aortic Root3.40 (2.2-3.7cm)Aortic Cusp Exc.2.00 (1.5-2.0cm) Aortic Valve AoV Peak Iseckxsn758.0cm/Ishan Peak GR.5mmHg Mitral Valve MV E Joijwqfe254.0cm/sMV A Xfezoimd05.2cm/sE/A ratio1.8 TDI E/Lateral E'0.0E/Medial E'0.0 Pulmonary Valve PV Peak Hdrswfeq69.3cm/sPV Peak Grad.3mmHg Tricuspid Valve TR Peak [id number] [id number] Peak Gr.30mmHg [id number] LEFT VENTRICLE The left ventricle is normal size. There is normal left ventricular wall thickness. The left ventricular function is normal. The left ventricular ejection fraction is within the normal range. There is normal LV segmental wall motion. The left ventricular diastolic function is normal. RIGHT VENTRICLE The right ventricle is normal size. There is normal right ventricular wall thickness. The right ventricular systolic function is normal. ATRIA The left atrium size is normal. The right atrium size is normal. AORTIC VALVE The aortic valve is not well visualized. There is trace aortic regurgitation. There is no aortic valvular stenosis. MITRAL VALVE The mitral valve is normal in structure. There is no mitral valve regurgitation noted. There is no mitral valve stenosis. TRICUSPID VALVE The tricuspid valve is normal in structure. There is mild tricuspid regurgitation. There is mild pulmonary hypertension. PULMONIC VALVE The pulmonary valve is normal in structure. There is no pulmonic valvular regurgitation. GREAT VESSELS The aortic root is normal in size. The IVC is normal in size and collapses >50% with inspiration. <Conclusion> There is mild tricuspid regurgitation. There is mild pulmonary hypertension. No PFO seen
--- NOTE | 2018-07-21 15:06 | CP.CCUPN ---
<Juan Carlos Qureshi - Last Filed: 07/21/18 15:12> CCU Subjective - Physician Review Subjective (Free Text): Juan Carlos Qureshi, PGY1 ICU Progress Note for Dr. Bynum Patient was seen and examined at bedside this morning. Mental status is significantly improved from yesterday. Vital signs: Temperature is now 98, HR 109, and BP 100/54. Patient is now awake, alert, and following commands. She is still intubated and a proper ROS was unable to be obtained. Initially on Pressure support this morning for potential weaning but was later placed back on PRVC. Family member was present at bedside. She was on levophed drip at 12 mcg/min and heparin drip. R-IJ, ET tube, vazquez, and OG tube in place. EEG was done after interview but was discontinued by neurology after their examination. CCU Objective - Vital Signs / Intake & Output Vital Signs (Last 4 hours): Vital Signs Temp Pulse BP Pulse Ox 07/21/18 14:00 97.5 F L 99 H 126/51 L 91 L 07/21/18 13:40 97.5 F L 87 90 L 07/21/18 13:20 97.5 F L 90 93 L 07/21/18 13:00 97.5 F L 97 H 109/57 L 92 L 07/21/18 12:40 97.5 F L 99 H 93 L 07/21/18 12:20 97.3 F L 84 93 L 07/21/18 12:00 97.2 F L 85 108/58 L 93 L 07/21/18 11:40 97.0 F L 89 90 L 07/21/18 11:20 97.0 F L 96 H 111/57 L 92 L 07/21/18 11:14 96.8 F L 89 111/47 L 90 L 07/21/18 11:09 96.8 F L 94 H 90/50 L 91 L 07/21/18 11:00 96.8 F L 100 H 59/26 L 94 L Intake and Output (Last 8hrs): Intake & Output 07/20/18 07/21/18 07/21/18 22:59 06:59 14:59 Intake Total 40 2950 180 Output Total 100 Balance 40 2850 180 Weight 40.823 kg 40.823 kg Intake: IV 40 2950 180 Left Forearm 1600 Left Wrist 80 Right Internal Jugular 900 Output: Urine 100 2-way Urethral 100 Other: Voiding Method Indwelling Catheter - Physical Exam Head: Positive for: Other (Bruising on the right scalp) Pupils: Positive for: Pinpoint Mouth: Positive for: Other (ET tube and OG tube in place. ) Nose (External): Positive for: Other (Bleeding was noted ) Respiratory/Chest: Positive for: Clear to Auscultation. Negative for: Respiratory Distress, Wheezes, Rales, Retracting, Rhonchi Cardiovascular: Positive for: Normal S1, S2, Peripheal Pulses Present Abdomen: Positive for: Tenderness (Diffuse tenderness to palpation). Negative for: Distention, Peritoneal Signs, Guarding, Mass/Organomegaly Upper Extremity: Positive for: NORMAL PULSES, Other (Right upper extremity is weaker than the left ). Negative for: Cyanosis, Edema Lower Extremity: Positive for: NORMAL PULSES, Other (Bilateral lower extremity weakness ). Negative for: Edema, CALF TENDERNESS Skin: Positive for: Warm, Dry, Other (Bruising on the right thoracic region, sacrum, lateral maleoli, and bilateral knees (w/ swelling)) Psychiatric: Positive for: Alert. Negative for: Oriented x 3 - Medications Active Medications: Active Medications Generic Name Dose Route Start Last Admin Trade Name Freq PRN Reason Stop Dose Admin Aspirin 325 mg 07/21/18 10:00 07/21/18 13:24 Aspirin PO 325 mg DAILY MELY Administration Hydrocortisone Sodium Succinate 50 mg 07/21/18 09:45 07/21/18 11:55 Solu-Cortef IVP 50 mg Q6H MELY Administration NOREPINEPHRINE BIT/0.9 % NACL 4 mg in 250 mls @ 15 mls/hr 07/20/18 15:26 07/21/18 09:17 Levophed 4 Mg/ 250 Ml Ns Premixed IV 12 mcg/min .[id number] PRN 45 mls/hr TITRATE PER MD ORDER Administration Protocol 4 MCG/MIN Levetiracetam 500 mg in 100 mls @ 400 mls/hr 07/20/18 22:00 07/21/18 09:20 Keppra 500mg Ivpb IV 400 mls/hr Q12 MELY Administration Midazolam 100 mg/100ml in NS 100 mg in 100 mls @ 1 mls/hr 07/20/18 15:44 Midazolam 100 Mg/100ml In Ns IV .Q24H PRN Sedation Protocol 1 MG/HR Heparin Sodium/Sodium Chloride 25,000 units in 250 mls @ 7.348 mls/hr 07/20/18 17:14 07/21/18 12:30 Heparin 66888 Units/250ml 1/2 Normal Saline IV 12 units/kg/hr .Q24H PRN 4.899 mls/hr ADJUST RATE PER PROTOCOL Titration Protocol 18 UNITS/KG/HR Vasopressin 20 units/ Dextrose 101 mls @ 9.09 mls/hr 07/21/18 09:45 07/21/18 11:20 IV 9.09 mls/hr .[id number] MELY Administration Protocol 0.03 U/MIN Piperacillin Sod/Tazobactam Sod 100 mls @ 25 mls/hr 07/21/18 12:20 07/21/18 13:20 Zosyn 3.375 In Ns 100ml IVPB 07/30/18 12:21 25 mls/hr Q12 MELY Administration Protocol Sodium Bicarbonate 150 meq/ 1,150 mls @ 150 mls/hr 07/21/18 13:00 07/21/18 13:21 Dextrose IV 150 mls/hr .[id number] MELY Administration Fentanyl Citrate 1,000 mcg in 100 mls @ 5 mls/hr 07/21/18 13:01 07/21/18 13:17 Fentanyl Citrate/Sodium Chloride 1 Mg/100 Ml IV 50 mcg/hr .Q20H PRN 5 mls/hr TITRATE PER MD ORDER Administration Protocol 50 MCG/HR Pantoprazole Sodium 40 mg 07/20/18 22:00 07/21/18 09:20 Protonix Inj IVP 40 mg Q12 MELY Administration - Patient Studies Lab Studies: Microbiology Studies 07/20/18 12:08 Blood Culture - Preliminary Blood-Venous NO GROWTH AFTER 24 HOURS Lab Studies 07/21/18 07/21/18 07/21/18 Range/Units 11:35 10:45 06:45 WBC (4.5-11.0) 10^3/uL RBC (3.5-6.1) 10^6/uL Hgb (12.0-16.0) g/dL Hct (36.0-48.0) % MCV (80.0-105.0) fl MCH (25.0-35.0) pg MCHC (31.0-37.0) g/dl RDW (11.5-14.5) % Plt Count (120.0-450.0) 10^3/uL MPV (7.0-11.0) fl PT (9.4-12.5) SECONDS INR APTT 181.4 H* (25.1-36.5) Seconds pCO2 19 L* (35-45) mm/Hg pO2 67.0 L (30-55) mm/Hg HCO3 8.9 L* (21-28) mmol/L ABG pH 7.28 L (7.35-7.45) ABG Total CO2 9.5 L (22-28) mmol.L ABG O2 Saturation 95.4 (95-98) % ABG O2 Content 14.2 L (15-23) ML/dl ABG Base Excess -15.9 L (-2.0-3.0) mmol/L ABG Hemoglobin 10.8 L (11.7-17.4) g/dL ABG Carboxyhemoglobin 1.4 (0.5-1.5) % POC ABG HHb (Measured) 4.5 (0-5) % ABG Methemoglobin 0.6 (0.0-3.0) % ABG O2 Capacity 14.9 L (16-24) mL/dl ABG Potassium (3.6-5.2) mmol/L VBG pH (7.32-7.43) VBG pCO2 (40-60) VBG HCO3 (21-28) mmol/l VBG Total CO2 (22-28) mmol.L VBG O2 Sat (Calc) (40-65) % VBG Base Excess (0.0-2.0) mmol/L VBG Potassium (3.6-5.2) mmol/L Hgb O2 Saturation 93.5 L (95.0-98.0) % Sodium (132-148) mmol/L Chloride (98-107) mmol/L Glucose (65-105) mg/dl Lactate (0.7-2.1) mmol/L FiO2 40.0 % Potassium (3.6-5.0) mmol/L Carbon Dioxide (21-33) mmol/L Anion Gap (10-20) BUN (7-21) mg/dL Creatinine (0.7-1.2) mg/dl Est GFR ( Amer) Est GFR (Non-Af Amer) Random Glucose (70-110) mg/dL Calcium (8.4-10.5) mg/dL Phosphorus (2.5-4.5) mg/dL Magnesium (1.7-2.2) mg/dL Total Bilirubin (0.2-1.3) mg/dL AST (14-36) U/L ALT (7-56) U/L Alkaline Phosphatase (38-126) U/L Lactate Dehydrogenase (333-699) U/L Troponin I ng/mL Total Protein (5.8-8.3) g/dL Albumin (3.0-4.8) g/dL Globulin gm/dL Albumin/Globulin Ratio (1.1-1.8) Triglycerides (35-160) mg/dL Cholesterol (130-200) mg/dL LDL Cholesterol Direct (0-129) mg/dL HDL Cholesterol (29-60) mg/dL Lipase (23-300) U/L Free T4 (0.78-2.19) ng/dL TSH 3rd Generation (0.46-4.68) mIU/mL Prolactin (3.0-18.9) ng/mL Arterial Blood Potassium (3.6-5.2) mmol/L Venous Blood Potassium (3.6-5.2) mmol/L Urine Color (YELLOW) Urine Appearance (CLEAR) Urine pH (4.7-8.0) Ur Specific [place] (1.005-1.035) Urine Protein (<30 mg/dL) mg/dL Urine Glucose (UA) (NEGATIVE) mg/dL Urine Ketones (NEGATIVE) mg/dL Urine Blood (NEGATIVE) Urine Nitrate (NEGATIVE) Urine Bilirubin (NEGATIVE) Urine Urobilinogen (<1 E.U./dL) E.U./dL Ur Leukocyte Esterase (NEGATIVE) Thomas/uL Urine RBC (0-2) /hpf Urine WBC (0-6) /hpf Ur Epithelial Cells (0-5) /hpf Amorphous Sediment Urine Bacteria (NEG) Hyaline Casts /hpf Fine Granular Casts (0-2) /hpf Urine Opiates Screen (NEGATIVE) Urine Methadone Screen (NEGATIVE) Ur Barbiturates Screen (NEGATIVE) Ur Phencyclidine Scrn (NEGATIVE) Ur Amphetamines Screen (NEGATIVE) U Benzodiazepines Scrn (NEGATIVE) U Oth Cocaine Metabols (NEGATIVE) U Cannabinoids Screen (NEGATIVE) Blood Type Blood Type Confirm O POSITIVE Antibody Screen BBK History Checked 07/21/18 07/21/18 07/21/18 Range/Units 06:30 06:30 06:00 WBC (4.5-11.0) 10^3/uL RBC (3.5-6.1) 10^6/uL Hgb (12.0-16.0) g/dL Hct (36.0-48.0) % MCV (80.0-105.0) fl MCH (25.0-35.0) pg MCHC (31.0-37.0) g/dl RDW (11.5-14.5) % Plt Count (120.0-450.0) 10^3/uL MPV (7.0-11.0) fl PT (9.4-12.5) SECONDS INR APTT (25.1-36.5) Seconds pCO2 (35-45) mm/Hg pO2 (30-55) mm/Hg HCO3 (21-28) mmol/L ABG pH (7.35-7.45) ABG Total CO2 (22-28) mmol.L ABG O2 Saturation (95-98) % ABG O2 Content (15-23) ML/dl ABG Base Excess (-2.0-3.0) mmol/L ABG Hemoglobin (11.7-17.4) g/dL ABG Carboxyhemoglobin (0.5-1.5) % POC ABG HHb (Measured) (0-5) % ABG Methemoglobin (0.0-3.0) % ABG O2 Capacity (16-24) mL/dl ABG Potassium (3.6-5.2) mmol/L VBG pH (7.32-7.43) VBG pCO2 (40-60) VBG HCO3 (21-28) mmol/l VBG Total CO2 (22-28) mmol.L VBG O2 Sat (Calc) (40-65) % VBG Base Excess (0.0-2.0) mmol/L VBG Potassium (3.6-5.2) mmol/L Hgb O2 Saturation (95.0-98.0) % Sodium (132-148) mmol/L Chloride (98-107) mmol/L Glucose (65-105) mg/dl Lactate (0.7-2.1) mmol/L FiO2 % Potassium (3.6-5.0) mmol/L Carbon Dioxide (21-33) mmol/L Anion Gap (10-20) BUN (7-21) mg/dL Creatinine (0.7-1.2) mg/dl Est GFR ( Amer) Est GFR (Non-Af Amer) Random Glucose (70-110) mg/dL Calcium (8.4-10.5) mg/dL Phosphorus (2.5-4.5) mg/dL Magnesium (1.7-2.2) mg/dL Total Bilirubin (0.2-1.3) mg/dL AST (14-36) U/L ALT (7-56) U/L Alkaline Phosphatase (38-126) U/L Lactate Dehydrogenase 907 H (333-699) U/L Troponin I ng/mL Total Protein (5.8-8.3) g/dL Albumin (3.0-4.8) g/dL Globulin gm/dL Albumin/Globulin Ratio (1.1-1.8) Triglycerides 92 (35-160) mg/dL Cholesterol 100 L (130-200) mg/dL LDL Cholesterol Direct 43 (0-129) mg/dL HDL Cholesterol 59 (29-60) mg/dL Lipase (23-300) U/L Free T4 (0.78-2.19) ng/dL TSH 3rd Generation (0.46-4.68) mIU/mL Prolactin (3.0-18.9) ng/mL Arterial Blood Potassium (3.6-5.2) mmol/L Venous Blood Potassium (3.6-5.2) mmol/L Urine Color Yellow (YELLOW) Urine Appearance Sl cloudy (CLEAR) Urine pH 6.0 (4.7-8.0) Ur Specific [place] 1.025 (1.005-1.035) Urine Protein 30 H (<30 mg/dL) mg/dL Urine Glucose (UA) Negative (NEGATIVE) mg/dL Urine Ketones 15 H (NEGATIVE) mg/dL Urine Blood Moderate H (NEGATIVE) Urine Nitrate Negative (NEGATIVE) Urine Bilirubin Large H (NEGATIVE) Urine Urobilinogen 0.2 (<1 E.U./dL) E.U./dL Ur Leukocyte Esterase Small H (NEGATIVE) Thomas/uL Urine RBC 2 - 5 (0-2) /hpf Urine WBC 5 - 10 (0-6) /hpf Ur Epithelial Cells 1 - 3 (0-5) /hpf Amorphous Sediment Few Urine Bacteria Mod (NEG) Hyaline Casts 1-3 /hpf Fine Granular Casts 2 - 5 (0-2) /hpf Urine Opiates Screen (NEGATIVE) Urine Methadone Screen (NEGATIVE) Ur Barbiturates Screen (NEGATIVE) Ur Phencyclidine Scrn (NEGATIVE) Ur Amphetamines Screen (NEGATIVE) U Benzodiazepines Scrn (NEGATIVE) U Oth Cocaine Metabols (NEGATIVE) U Cannabinoids Screen (NEGATIVE) Blood Type Blood Type Confirm Antibody Screen BBK History Checked 07/21/18 07/21/18 07/21/18 Range/Units 06:00 06:00 06:00 WBC (4.5-11.0) 10^3/uL RBC (3.5-6.1) 10^6/uL Hgb (12.0-16.0) g/dL Hct (36.0-48.0) % MCV (80.0-105.0) fl MCH (25.0-35.0) pg MCHC (31.0-37.0) g/dl RDW (11.5-14.5) % Plt Count (120.0-450.0) 10^3/uL MPV (7.0-11.0) fl PT (9.4-12.5) SECONDS INR APTT (25.1-36.5) Seconds pCO2 (35-45) mm/Hg pO2 (30-55) mm/Hg HCO3 (21-28) mmol/L ABG pH (7.35-7.45) ABG Total CO2 (22-28) mmol.L ABG O2 Saturation (95-98) % ABG O2 Content (15-23) ML/dl ABG Base Excess (-2.0-3.0) mmol/L ABG Hemoglobin (11.7-17.4) g/dL ABG Carboxyhemoglobin (0.5-1.5) % POC ABG HHb (Measured) (0-5) % ABG Methemoglobin (0.0-3.0) % ABG O2 Capacity (16-24) mL/dl ABG Potassium (3.6-5.2) mmol/L VBG pH (7.32-7.43) VBG pCO2 (40-60) VBG HCO3 (21-28) mmol/l VBG Total CO2 (22-28) mmol.L VBG O2 Sat (Calc) (40-65) % VBG Base Excess (0.0-2.0) mmol/L VBG Potassium (3.6-5.2) mmol/L Hgb O2 Saturation (95.0-98.0) % Sodium 145 (132-148) mmol/L Chloride 118 H (98-107) mmol/L Glucose (65-105) mg/dl Lactate (0.7-2.1) mmol/L FiO2 % Potassium 3.1 L (3.6-5.0) mmol/L Carbon Dioxide 12 L (21-33) mmol/L Anion Gap 18 (10-20) BUN 25 H (7-21) mg/dL Creatinine 1.5 H (0.7-1.2) mg/dl Est GFR ( Amer) 43 Est GFR (Non-Af Amer) 36 Random Glucose 77 (70-110) mg/dL Calcium 6.9 L* (8.4-10.5) mg/dL Phosphorus 4.1 (2.5-4.5) mg/dL Magnesium 2.0 (1.7-2.2) mg/dL Total Bilirubin 0.4 (0.2-1.3) mg/dL AST 35 (14-36) U/L ALT 32 (7-56) U/L Alkaline Phosphatase 63 (38-126) U/L Lactate Dehydrogenase (333-699) U/L Troponin I ng/mL Total Protein 4.7 L (5.8-8.3) g/dL Albumin 2.3 L (3.0-4.8) g/dL Globulin 2.4 gm/dL Albumin/Globulin Ratio 0.9 L (1.1-1.8) Triglycerides (35-160) mg/dL Cholesterol (130-200) mg/dL LDL Cholesterol Direct (0-129) mg/dL HDL Cholesterol (29-60) mg/dL Lipase 5554 H (23-300) U/L Free T4 (0.78-2.19) ng/dL TSH 3rd Generation (0.46-4.68) mIU/mL Prolactin (3.0-18.9) ng/mL Arterial Blood Potassium (3.6-5.2) mmol/L Venous Blood Potassium (3.6-5.2) mmol/L Urine Color (YELLOW) Urine Appearance (CLEAR) Urine pH (4.7-8.0) Ur Specific [place] (1.005-1.035) Urine Protein (<30 mg/dL) mg/dL Urine Glucose (UA) (NEGATIVE) mg/dL Urine Ketones (NEGATIVE) mg/dL Urine Blood (NEGATIVE) Urine Nitrate (NEGATIVE) Urine Bilirubin (NEGATIVE) Urine Urobilinogen (<1 E.U./dL) E.U./dL Ur Leukocyte Esterase (NEGATIVE) Thomas/uL Urine RBC (0-2) /hpf Urine WBC (0-6) /hpf Ur Epithelial Cells (0-5) /hpf Amorphous Sediment Urine Bacteria (NEG) Hyaline Casts /hpf Fine Granular Casts (0-2) /hpf Urine Opiates Screen Negative (NEGATIVE) Urine Methadone Screen Negative (NEGATIVE) Ur Barbiturates Screen Negative (NEGATIVE) Ur Phencyclidine Scrn Negative (NEGATIVE) Ur Amphetamines Screen Negative (NEGATIVE) U Benzodiazepines Scrn Negative (NEGATIVE) U Oth Cocaine Metabols Negative (NEGATIVE) U Cannabinoids Screen Positive H (NEGATIVE) Blood Type O POSITIVE Blood Type Confirm Antibody Screen Negative BBK History Checked No verified bt 07/21/18 07/21/18 07/21/18 Range/Units 05:45 05:00 02:00 WBC 15.2 H (4.5-11.0) 10^3/uL RBC 3.56 (3.5-6.1) 10^6/uL Hgb 11.5 L D (12.0-16.0) g/dL Hct 33.8 L (36.0-48.0) % MCV 94.9 (80.0-105.0) fl MCH 32.3 (25.0-35.0) pg MCHC 34.0 (31.0-37.0) g/dl RDW 15.6 H (11.5-14.5) % Plt Count 172 (120.0-450.0) 10^3/uL MPV 11.5 H (7.0-11.0) fl PT (9.4-12.5) SECONDS INR APTT 130.0 H* (25.1-36.5) Seconds pCO2 23 L (35-45) mm/Hg pO2 52.0 L (30-55) mm/Hg HCO3 10.3 L (21-28) mmol/L ABG pH 7.26 L (7.35-7.45) ABG Total CO2 11.0 L (22-28) mmol.L ABG O2 Saturation 87.3 L (95-98) % ABG O2 Content (15-23) ML/dl ABG Base Excess -14.8 L (-2.0-3.0) mmol/L ABG Hemoglobin (11.7-17.4) g/dL ABG Carboxyhemoglobin (0.5-1.5) % POC ABG HHb (Measured) (0-5) % ABG Methemoglobin (0.0-3.0) % ABG O2 Capacity (16-24) mL/dl ABG Potassium 2.9 L (3.6-5.2) mmol/L VBG pH (7.32-7.43) VBG pCO2 (40-60) VBG HCO3 (21-28) mmol/l VBG Total CO2 (22-28) mmol.L VBG O2 Sat (Calc) (40-65) % VBG Base Excess (0.0-2.0) mmol/L VBG Potassium (3.6-5.2) mmol/L Hgb O2 Saturation (95.0-98.0) % Sodium 148.0 (132-148) mmol/L Chloride 115.0 H (98-107) mmol/L Glucose 64 L (65-105) mg/dl Lactate 1.4 (0.7-2.1) mmol/L FiO2 50.0 % Potassium (3.6-5.0) mmol/L Carbon Dioxide (21-33) mmol/L Anion Gap (10-20) BUN (7-21) mg/dL Creatinine (0.7-1.2) mg/dl Est GFR ( Amer) Est GFR (Non-Af Amer) Random Glucose (70-110) mg/dL Calcium (8.4-10.5) mg/dL Phosphorus (2.5-4.5) mg/dL Magnesium (1.7-2.2) mg/dL Total Bilirubin (0.2-1.3) mg/dL AST (14-36) U/L ALT (7-56) U/L Alkaline Phosphatase (38-126) U/L Lactate Dehydrogenase (333-699) U/L Troponin I ng/mL Total Protein (5.8-8.3) g/dL Albumin (3.0-4.8) g/dL Globulin gm/dL Albumin/Globulin Ratio (1.1-1.8) Triglycerides (35-160) mg/dL Cholesterol (130-200) mg/dL LDL Cholesterol Direct (0-129) mg/dL HDL Cholesterol (29-60) mg/dL Lipase (23-300) U/L Free T4 (0.78-2.19) ng/dL TSH 3rd Generation (0.46-4.68) mIU/mL Prolactin (3.0-18.9) ng/mL Arterial Blood Potassium 2.9 L (3.6-5.2) mmol/L Venous Blood Potassium (3.6-5.2) mmol/L Urine Color (YELLOW) Urine Appearance (CLEAR) Urine pH (4.7-8.0) Ur Specific [place] (1.005-1.035) Urine Protein (<30 mg/dL) mg/dL Urine Glucose (UA) (NEGATIVE) mg/dL Urine Ketones (NEGATIVE) mg/dL Urine Blood (NEGATIVE) Urine Nitrate (NEGATIVE) Urine Bilirubin (NEGATIVE) Urine Urobilinogen (<1 E.U./dL) E.U./dL Ur Leukocyte Esterase (NEGATIVE) Thomas/uL Urine RBC (0-2) /hpf Urine WBC (0-6) /hpf Ur Epithelial Cells (0-5) /hpf Amorphous Sediment Urine Bacteria (NEG) Hyaline Casts /hpf Fine Granular Casts (0-2) /hpf Urine Opiates Screen (NEGATIVE) Urine Methadone Screen (NEGATIVE) Ur Barbiturates Screen (NEGATIVE) Ur Phencyclidine Scrn (NEGATIVE) Ur Amphetamines Screen (NEGATIVE) U Benzodiazepines Scrn (NEGATIVE) U Oth Cocaine Metabols (NEGATIVE) U Cannabinoids Screen (NEGATIVE) Blood Type Blood Type Confirm Antibody Screen BBK History Checked 07/20/18 07/20/18 07/20/18 Range/Units 21:33 16:01 16:01 WBC (4.5-11.0) 10^3/uL RBC (3.5-6.1) 10^6/uL Hgb (12.0-16.0) g/dL Hct (36.0-48.0) % MCV (80.0-105.0) fl MCH (25.0-35.0) pg MCHC (31.0-37.0) g/dl RDW (11.5-14.5) % Plt Count (120.0-450.0) 10^3/uL MPV (7.0-11.0) fl PT (9.4-12.5) SECONDS INR APTT (25.1-36.5) Seconds pCO2 (35-45) mm/Hg pO2 215 H (30-55) mm/Hg HCO3 (21-28) mmol/L ABG pH (7.35-7.45) ABG Total CO2 (22-28) mmol.L ABG O2 Saturation (95-98) % ABG O2 Content (15-23) ML/dl ABG Base Excess (-2.0-3.0) mmol/L ABG Hemoglobin (11.7-17.4) g/dL ABG Carboxyhemoglobin (0.5-1.5) % POC ABG HHb (Measured) (0-5) % ABG Methemoglobin (0.0-3.0) % ABG O2 Capacity (16-24) mL/dl ABG Potassium (3.6-5.2) mmol/L VBG pH 7.23 L (7.32-7.43) VBG pCO2 22.0 L (40-60) VBG HCO3 9.2 L (21-28) mmol/l VBG Total CO2 9.9 L (22-28) mmol.L VBG O2 Sat (Calc) 99.9 H (40-65) % VBG Base Excess -16.4 L (0.0-2.0) mmol/L VBG Potassium 1.7 L* (3.6-5.2) mmol/L Hgb O2 Saturation (95.0-98.0) % Sodium 144 145.0 (132-148) mmol/L Chloride 115 H D 108.0 H (98-107) mmol/L Glucose 98 (65-105) mg/dl Lactate 1.2 (0.7-2.1) mmol/L FiO2 21.0 % Potassium 2.0 L* D (3.6-5.0) mmol/L Carbon Dioxide 12 L (21-33) mmol/L Anion Gap 20 (10-20) BUN 27 H (7-21) mg/dL Creatinine 1.4 H (0.7-1.2) mg/dl Est GFR ( Amer) 47 Est GFR (Non-Af Amer) 39 Random Glucose 80 (70-110) mg/dL Calcium 7.1 L (8.4-10.5) mg/dL Phosphorus 5.0 H (2.5-4.5) mg/dL Magnesium 1.3 L (1.7-2.2) mg/dL Total Bilirubin 0.4 (0.2-1.3) mg/dL AST 33 (14-36) U/L ALT 26 (7-56) U/L Alkaline Phosphatase 69 (38-126) U/L Lactate Dehydrogenase (333-699) U/L Troponin I 0.01 D ng/mL Total Protein 4.6 L (5.8-8.3) g/dL Albumin 2.3 L (3.0-4.8) g/dL Globulin 2.3 gm/dL Albumin/Globulin Ratio 1.0 L (1.1-1.8) Triglycerides (35-160) mg/dL Cholesterol (130-200) mg/dL LDL Cholesterol Direct (0-129) mg/dL HDL Cholesterol (29-60) mg/dL Lipase (23-300) U/L Free T4 (0.78-2.19) ng/dL TSH 3rd Generation (0.46-4.68) mIU/mL Prolactin 98.1 H (3.0-18.9) ng/mL Arterial Blood Potassium (3.6-5.2) mmol/L Venous Blood Potassium 1.7 L* (3.6-5.2) mmol/L Urine Color (YELLOW) Urine Appearance (CLEAR) Urine pH (4.7-8.0) Ur Specific [place] (1.005-1.035) Urine Protein (<30 mg/dL) mg/dL Urine Glucose (UA) (NEGATIVE) mg/dL Urine Ketones (NEGATIVE) mg/dL Urine Blood (NEGATIVE) Urine Nitrate (NEGATIVE) Urine Bilirubin (NEGATIVE) Urine Urobilinogen (<1 E.U./dL) E.U./dL Ur Leukocyte Esterase (NEGATIVE) Thomas/uL Urine RBC (0-2) /hpf Urine WBC (0-6) /hpf Ur Epithelial Cells (0-5) /hpf Amorphous Sediment Urine Bacteria (NEG) Hyaline Casts /hpf Fine Granular Casts (0-2) /hpf Urine Opiates Screen (NEGATIVE) Urine Methadone Screen (NEGATIVE) Ur Barbiturates Screen (NEGATIVE) Ur Phencyclidine Scrn (NEGATIVE) Ur Amphetamines Screen (NEGATIVE) U Benzodiazepines Scrn (NEGATIVE) U Oth Cocaine Metabols (NEGATIVE) U Cannabinoids Screen (NEGATIVE) Blood Type Blood Type Confirm Antibody Screen BBK History Checked 07/20/18 07/20/18 Range/Units 16:01 16:01 WBC (4.5-11.0) 10^3/uL RBC (3.5-6.1) 10^6/uL Hgb (12.0-16.0) g/dL Hct (36.0-48.0) % MCV (80.0-105.0) fl MCH (25.0-35.0) pg MCHC (31.0-37.0) g/dl RDW (11.5-14.5) % Plt Count (120.0-450.0) 10^3/uL MPV (7.0-11.0) fl PT 11.3 (9.4-12.5) SECONDS INR 0.99 APTT 34.6 (25.1-36.5) Seconds pCO2 (35-45) mm/Hg pO2 (30-55) mm/Hg HCO3 (21-28) mmol/L ABG pH (7.35-7.45) ABG Total CO2 (22-28) mmol.L ABG O2 Saturation (95-98) % ABG O2 Content (15-23) ML/dl ABG Base Excess (-2.0-3.0) mmol/L ABG Hemoglobin (11.7-17.4) g/dL ABG Carboxyhemoglobin (0.5-1.5) % POC ABG HHb (Measured) (0-5) % ABG Methemoglobin (0.0-3.0) % ABG O2 Capacity (16-24) mL/dl ABG Potassium (3.6-5.2) mmol/L VBG pH (7.32-7.43) VBG pCO2 (40-60) VBG HCO3 (21-28) mmol/l VBG Total CO2 (22-28) mmol.L VBG O2 Sat (Calc) (40-65) % VBG Base Excess (0.0-2.0) mmol/L VBG Potassium (3.6-5.2) mmol/L Hgb O2 Saturation (95.0-98.0) % Sodium (132-148) mmol/L Chloride (98-107) mmol/L Glucose (65-105) mg/dl Lactate (0.7-2.1) mmol/L FiO2 % Potassium (3.6-5.0) mmol/L Carbon Dioxide (21-33) mmol/L Anion Gap (10-20) BUN (7-21) mg/dL Creatinine (0.7-1.2) mg/dl Est GFR ( Amer) Est GFR (Non-Af Amer) Random Glucose (70-110) mg/dL Calcium (8.4-10.5) mg/dL Phosphorus (2.5-4.5) mg/dL Magnesium (1.7-2.2) mg/dL Total Bilirubin (0.2-1.3) mg/dL AST (14-36) U/L ALT (7-56) U/L Alkaline Phosphatase (38-126) U/L Lactate Dehydrogenase (333-699) U/L Troponin I ng/mL Total Protein (5.8-8.3) g/dL Albumin (3.0-4.8) g/dL Globulin gm/dL Albumin/Globulin Ratio (1.1-1.8) Triglycerides (35-160) mg/dL Cholesterol (130-200) mg/dL LDL Cholesterol Direct (0-129) mg/dL HDL Cholesterol (29-60) mg/dL Lipase (23-300) U/L Free T4 1.51 (0.78-2.19) ng/dL TSH 3rd Generation 5.08 H (0.46-4.68) mIU/mL Prolactin (3.0-18.9) ng/mL Arterial Blood Potassium (3.6-5.2) mmol/L Venous Blood Potassium (3.6-5.2) mmol/L Urine Color (YELLOW) Urine Appearance (CLEAR) Urine pH (4.7-8.0) Ur Specific [place] (1.005-1.035) Urine Protein (<30 mg/dL) mg/dL Urine Glucose (UA) (NEGATIVE) mg/dL Urine Ketones (NEGATIVE) mg/dL Urine Blood (NEGATIVE) Urine Nitrate (NEGATIVE) Urine Bilirubin (NEGATIVE) Urine Urobilinogen (<1 E.U./dL) E.U./dL Ur Leukocyte Esterase (NEGATIVE) Thomas/uL Urine RBC (0-2) /hpf Urine WBC (0-6) /hpf Ur Epithelial Cells (0-5) /hpf Amorphous Sediment Urine Bacteria (NEG) Hyaline Casts /hpf Fine Granular Casts (0-2) /hpf Urine Opiates Screen (NEGATIVE) Urine Methadone Screen (NEGATIVE) Ur Barbiturates Screen (NEGATIVE) Ur Phencyclidine Scrn (NEGATIVE) Ur Amphetamines Screen (NEGATIVE) U Benzodiazepines Scrn (NEGATIVE) U Oth Cocaine Metabols (NEGATIVE) U Cannabinoids Screen (NEGATIVE) Blood Type Blood Type Confirm Antibody Screen BBK History Checked Laboratory Results - last 24 hr 07/20/18 07/20/18 07/20/18 16:01 16:01 16:01 WBC RBC Hgb Hct MCV MCH MCHC RDW Plt Count MPV PT 11.3 INR 0.99 APTT 34.6 pCO2 pO2 HCO3 ABG pH ABG Total CO2 ABG O2 Saturation ABG O2 Content ABG Base Excess ABG Hemoglobin ABG Carboxyhemoglobin POC ABG HHb (Measured) ABG Methemoglobin ABG O2 Capacity ABG Potassium VBG pH VBG pCO2 VBG HCO3 VBG Total CO2 VBG O2 Sat (Calc) VBG Base Excess VBG Potassium Hgb O2 Saturation Sodium Chloride Glucose Lactate FiO2 Potassium Carbon Dioxide Anion Gap BUN Creatinine Est GFR ( Amer) Est GFR (Non-Af Amer) Random Glucose Calcium Phosphorus Magnesium Total Bilirubin AST ALT Alkaline Phosphatase Lactate Dehydrogenase Troponin I Total Protein Albumin Globulin Albumin/Globulin Ratio Triglycerides Cholesterol LDL Cholesterol Direct HDL Cholesterol Lipase Free T4 1.51 TSH 3rd Generation 5.08 H Prolactin 98.1 H Arterial Blood Potassium Venous Blood Potassium Urine Color Urine Appearance Urine pH Ur Specific [place] Urine Protein Urine Glucose (UA) Urine Ketones Urine Blood Urine Nitrate Urine Bilirubin Urine Urobilinogen Ur Leukocyte Esterase Urine RBC Urine WBC Ur Epithelial Cells Amorphous Sediment Urine Bacteria Hyaline Casts Fine Granular Casts Urine Opiates Screen Urine Methadone Screen Ur Barbiturates Screen Ur Phencyclidine Scrn Ur Amphetamines Screen U Benzodiazepines Scrn U Oth Cocaine Metabols U Cannabinoids Screen Blood Type Blood Type Confirm Antibody Screen BBK History Checked 07/20/18 07/20/18 07/21/18 16:01 21:33 02:00 WBC RBC Hgb Hct MCV MCH MCHC RDW Plt Count MPV PT INR APTT 130.0 H* pCO2 pO2 215 H HCO3 ABG pH ABG Total CO2 ABG O2 Saturation ABG O2 Content ABG Base Excess ABG Hemoglobin ABG Carboxyhemoglobin POC ABG HHb (Measured) ABG Methemoglobin ABG O2 Capacity ABG Potassium VBG pH 7.23 L VBG pCO2 22.0 L VBG HCO3 9.2 L VBG Total CO2 9.9 L VBG O2 Sat (Calc) 99.9 H VBG Base Excess -16.4 L VBG Potassium 1.7 L* Hgb O2 Saturation Sodium 145.0 144 Chloride 108.0 H 115 H D Glucose 98 Lactate 1.2 FiO2 21.0 Potassium 2.0 L* D Carbon Dioxide 12 L Anion Gap 20 BUN 27 H Creatinine 1.4 H Est GFR ( Amer) 47 Est GFR (Non-Af Amer) 39 Random Glucose 80 Calcium 7.1 L Phosphorus 5.0 H Magnesium 1.3 L Total Bilirubin 0.4 AST 33 ALT 26 Alkaline Phosphatase 69 Lactate Dehydrogenase Troponin I 0.01 D Total Protein 4.6 L Albumin 2.3 L Globulin 2.3 Albumin/Globulin Ratio 1.0 L Triglycerides Cholesterol LDL Cholesterol Direct HDL Cholesterol Lipase Free T4 TSH 3rd Generation Prolactin Arterial Blood Potassium Venous Blood Potassium 1.7 L* Urine Color Urine Appearance Urine pH Ur Specific [place] Urine Protein Urine Glucose (UA) Urine Ketones Urine Blood Urine Nitrate Urine Bilirubin Urine Urobilinogen Ur Leukocyte Esterase Urine RBC Urine WBC Ur Epithelial Cells Amorphous Sediment Urine Bacteria Hyaline Casts Fine Granular Casts Urine Opiates Screen Urine Methadone Screen Ur Barbiturates Screen Ur Phencyclidine Scrn Ur Amphetamines Screen U Benzodiazepines Scrn U Oth Cocaine Metabols U Cannabinoids Screen Blood Type Blood Type Confirm Antibody Screen BBK History Checked 07/21/18 07/21/18 07/21/18 05:00 05:45 06:00 WBC 15.2 H RBC 3.56 Hgb 11.5 L D Hct 33.8 L MCV 94.9 MCH 32.3 MCHC 34.0 RDW 15.6 H Plt Count 172 MPV 11.5 H PT INR APTT pCO2 23 L pO2 52.0 L HCO3 10.3 L ABG pH 7.26 L ABG Total CO2 11.0 L ABG O2 Saturation 87.3 L ABG O2 Content ABG Base Excess -14.8 L ABG Hemoglobin ABG Carboxyhemoglobin POC ABG HHb (Measured) ABG Methemoglobin ABG O2 Capacity ABG Potassium 2.9 L VBG pH VBG pCO2 VBG HCO3 VBG Total CO2 VBG O2 Sat (Calc) VBG Base Excess VBG Potassium Hgb O2 Saturation Sodium 148.0 Chloride 115.0 H Glucose 64 L Lactate 1.4 FiO2 50.0 Potassium Carbon Dioxide Anion Gap BUN Creatinine Est GFR ( Amer) Est GFR (Non-Af Amer) Random Glucose Calcium Phosphorus Magnesium Total Bilirubin AST ALT Alkaline Phosphatase Lactate Dehydrogenase Troponin I Total Protein Albumin Globulin Albumin/Globulin Ratio Triglycerides Cholesterol LDL Cholesterol Direct HDL Cholesterol Lipase Free T4 TSH 3rd Generation Prolactin Arterial Blood Potassium 2.9 L Venous Blood Potassium Urine Color Urine Appearance Urine pH Ur Specific [place] Urine Protein Urine Glucose (UA) Urine Ketones Urine Blood Urine Nitrate Urine Bilirubin Urine Urobilinogen Ur Leukocyte Esterase Urine RBC Urine WBC Ur Epithelial Cells Amorphous Sediment Urine Bacteria Hyaline Casts Fine Granular Casts Urine Opiates Screen Negative Urine Methadone Screen Negative Ur Barbiturates Screen Negative Ur Phencyclidine Scrn Negative Ur Amphetamines Screen Negative U Benzodiazepines Scrn Negative U Oth Cocaine Metabols Negative U Cannabinoids Screen Positive H Blood Type Blood Type Confirm Antibody Screen BBK History Checked 07/21/18 07/21/18 07/21/18 06:00 06:00 06:00 WBC RBC Hgb Hct MCV MCH MCHC RDW Plt Count MPV PT INR APTT pCO2 pO2 HCO3 ABG pH ABG Total CO2 ABG O2 Saturation ABG O2 Content ABG Base Excess ABG Hemoglobin ABG Carboxyhemoglobin POC ABG HHb (Measured) ABG Methemoglobin ABG O2 Capacity ABG Potassium VBG pH VBG pCO2 VBG HCO3 VBG Total CO2 VBG O2 Sat (Calc) VBG Base Excess VBG Potassium Hgb O2 Saturation Sodium 145 Chloride 118 H Glucose Lactate FiO2 Potassium 3.1 L Carbon Dioxide 12 L Anion Gap 18 BUN 25 H Creatinine 1.5 H Est GFR ( Amer) 43 Est GFR (Non-Af Amer) 36 Random Glucose 77 Calcium 6.9 L* Phosphorus 4.1 Magnesium 2.0 Total Bilirubin 0.4 AST 35 ALT 32 Alkaline Phosphatase 63 Lactate Dehydrogenase Troponin I Total Protein 4.7 L Albumin 2.3 L Globulin 2.4 Albumin/Globulin Ratio 0.9 L Triglycerides Cholesterol LDL Cholesterol Direct HDL Cholesterol Lipase 5554 H Free T4 TSH 3rd Generation Prolactin Arterial Blood Potassium Venous Blood Potassium Urine Color Yellow Urine Appearance Sl cloudy Urine pH 6.0 Ur Specific [place] 1.025 Urine Protein 30 H Urine Glucose (UA) Negative Urine Ketones 15 H Urine Blood Moderate H Urine Nitrate Negative Urine Bilirubin Large H Urine Urobilinogen 0.2 Ur Leukocyte Esterase Small H Urine RBC 2 - 5 Urine WBC 5 - 10 Ur Epithelial Cells 1 - 3 Amorphous Sediment Few Urine Bacteria Mod Hyaline Casts 1-3 Fine Granular Casts 2 - 5 Urine Opiates Screen Urine Methadone Screen Ur Barbiturates Screen Ur Phencyclidine Scrn Ur Amphetamines Screen U Benzodiazepines Scrn U Oth Cocaine Metabols U Cannabinoids Screen Blood Type O POSITIVE Blood Type Confirm Antibody Screen Negative BBK History Checked No verified bt 07/21/18 07/21/18 07/21/18 06:30 06:30 06:45 WBC RBC Hgb Hct MCV MCH MCHC RDW Plt Count MPV PT INR APTT pCO2 pO2 HCO3 ABG pH ABG Total CO2 ABG O2 Saturation ABG O2 Content ABG Base Excess ABG Hemoglobin ABG Carboxyhemoglobin POC ABG HHb (Measured) ABG Methemoglobin ABG O2 Capacity ABG Potassium VBG pH VBG pCO2 VBG HCO3 VBG Total CO2 VBG O2 Sat (Calc) VBG Base Excess VBG Potassium Hgb O2 Saturation Sodium Chloride Glucose Lactate FiO2 Potassium Carbon Dioxide Anion Gap BUN Creatinine Est GFR ( Amer) Est GFR (Non-Af Amer) Random Glucose Calcium Phosphorus Magnesium Total Bilirubin AST ALT Alkaline Phosphatase Lactate Dehydrogenase 907 H Troponin I Total Protein Albumin Globulin Albumin/Globulin Ratio Triglycerides 92 Cholesterol 100 L LDL Cholesterol Direct 43 HDL Cholesterol 59 Lipase Free T4 TSH 3rd Generation Prolactin Arterial Blood Potassium Venous Blood Potassium Urine Color Urine Appearance Urine pH Ur Specific [place] Urine Protein Urine Glucose (UA) Urine Ketones Urine Blood Urine Nitrate Urine Bilirubin Urine Urobilinogen Ur Leukocyte Esterase Urine RBC Urine WBC Ur Epithelial Cells Amorphous Sediment Urine Bacteria Hyaline Casts Fine Granular Casts Urine Opiates Screen Urine Methadone Screen Ur Barbiturates Screen Ur Phencyclidine Scrn Ur Amphetamines Screen U Benzodiazepines Scrn U Oth Cocaine Metabols U Cannabinoids Screen Blood Type Blood Type Confirm O POSITIVE Antibody Screen BBK History Checked 07/21/18 07/21/18 10:45 11:35 WBC RBC Hgb Hct MCV MCH MCHC RDW Plt Count MPV PT INR APTT 181.4 H* pCO2 19 L* pO2 67.0 L HCO3 8.9 L* ABG pH 7.28 L ABG Total CO2 9.5 L ABG O2 Saturation 95.4 ABG O2 Content 14.2 L ABG Base Excess -15.9 L ABG Hemoglobin 10.8 L ABG Carboxyhemoglobin 1.4 POC ABG HHb (Measured) 4.5 ABG Methemoglobin 0.6 ABG O2 Capacity 14.9 L ABG Potassium VBG pH VBG pCO2 VBG HCO3 VBG Total CO2 VBG O2 Sat (Calc) VBG Base Excess VBG Potassium Hgb O2 Saturation 93.5 L Sodium Chloride Glucose Lactate FiO2 40.0 Potassium Carbon Dioxide Anion Gap BUN Creatinine Est GFR ( Amer) Est GFR (Non-Af Amer) Random Glucose Calcium Phosphorus Magnesium Total Bilirubin AST ALT Alkaline Phosphatase Lactate Dehydrogenase Troponin I Total Protein Albumin Globulin Albumin/Globulin Ratio Triglycerides Cholesterol LDL Cholesterol Direct HDL Cholesterol Lipase Free T4 TSH 3rd Generation Prolactin Arterial Blood Potassium Venous Blood Potassium Urine Color Urine Appearance Urine pH Ur Specific [place] Urine Protein Urine Glucose (UA) Urine Ketones Urine Blood Urine Nitrate Urine Bilirubin Urine Urobilinogen Ur Leukocyte Esterase Urine RBC Urine WBC Ur Epithelial Cells Amorphous Sediment Urine Bacteria Hyaline Casts Fine Granular Casts Urine Opiates Screen Urine Methadone Screen Ur Barbiturates Screen Ur Phencyclidine Scrn Ur Amphetamines Screen U Benzodiazepines Scrn U Oth Cocaine Metabols U Cannabinoids Screen Blood Type Blood Type Confirm Antibody Screen BBK History Checked EKG/Cardiology Studies: Cardiology / EKG Studies 07/21/18 09:34 EKG [ELECTROCARDIOGRAM] Stat Comment: Reason For Exam: QTc Fingerstick Blood Sugar Results: 123 Review of Systems - Review of Systems Systems not reviewed;Unavailable: Intubated Critical Care Progress Note - Ventilator Checklist Head of Bed 30 Degrees: Yes Daily Sedation Vacation: Yes Daily Assessment of Readiness to Wean: Yes Daily Spontaneous Breathing Trial: Yes PUD Prophalyxis: Yes DVT Prophylaxis: Yes Oral Care with Chlorhexidine Gluconate {CHG}: Yes - Vent Settings MODE:: PRVC TIDAL VOLUME:: 400 RESP RATE:: 16 FIO2:: 60 PEEP:: 5 - Extremities/Vascular Does the Patient have a Central Venous Catheter?: Yes Insertion Site: Internal Jugular Vein Does the Patient need a Central Venous Catheter?: Yes Does the Patient have a Vazquez Catheter?: Yes Does the Patient need a Vazquez Catheter?: Yes Catheter Insertion Criteria: Need for accurate measurement of output in critically ill patient - Restraints Justification for Restraints: High risk for self extubation - Prophylaxis GI Prophylaxis GI: PPI - Prophylaxis DVT Prophylaxis DVT: SCDs - Nutrition Nutrition: Nutrition Category Date Time Status NPO Diet [DIET] Diets 07/20/18 Breakfast Ordered Assessment/Plan - Assessment and Plan (Free Text) Assessment: Patient is a 57 y/o F with PMHx asthma, 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 Patient was found to be hypothermic on presentation and intubated as a result of unresponsiveness. Patient was also found to be in shock during presentation. ICU was consulted for management. Patient was stabilized. Plan: Neuro: - Mental status is significantly improved; alert/awake and following commands - Patient was pulling IV multiple times; fentanyl ordered and restraints - c/w ASA for stroke ppx - Severe Hypothermia is now resolved - Neurology consulted, recommended MRI brain and to discontinue EEG as it was not indicating seizures - CT Head (07/20): no intracranial hemorrhage Cardio: - Distributive Shock with Multiorgan Dysfunction - c/w levophed and fluids for blood pressure support; vasopressin and stress dose steroids were added - Echo (07/21): EF 65%. No PFO. - Maintain MAP > 65 - Repeat EKG showed normal QTc interval and normal sinus rhythm - EKG initial showed sinus bradycardia and prolonged QTc interval (600s) likely due to hypothermia - CXR negative - troponin negative Pulm: - Intubated on mechanical ventilation; c/w low tidal volume ventilation to prevent ventilator associated lung injury - HoB > 35 degrees, oral hygiene, suction, daily weaning trials, DVT/PE ppx - Maintain SaO2 > 92% GI: - Consider Pancreatic Shock - CT A/P: indicates pancreatitis - GI and Surgery were consulted, f/u recommendations - RUQ ultrasound ordered to r/o gallstone induced pancreatitis - Lipid panel does not indicate pancreatitis due to elevated triglycerides - Lipase significantly elevated - OG tube placed - GI ppx with PTX - NPO Renal: - AUBREY likely intra-renal - now improving - Oligouria - monitor strict Ins/Outs - Hyperkalemia - K was 2.0; given a total of x5 K-riders and now repeat K is 3.1; monitor - Nephrology consulted. Follow up recommendations ID: - leukocytosis downtrending - Procalcitonin elevated but in the setting of acute pancreatitis and AUBREY, it may be falsely elevated - on zosyn as per ID recs - ID consulted - Blood cx negative x1 (prelim) after 24 hours - f/u urine cx Endo: - stress dose steroids - TSH and T4 are within range; thyroid emergency is not likely - Maintain euglycemia, blood glucose 140-180 as per NICE-SUGAR trial - Accuchecks Heme: - Drop in Hgb from 16 to 11.5; likely due to dilutional effect - on heparin gtt but is now held since patient noted to have bleeding in the nares/mouth - f/u cbc and PTT in afternoon - Patient has Hx of DVT/PE (on coumadin) but is subtherapeutic INR since admission - DVT ppx with SCDs Dispo: Monitor patient in the ICU. Case was discussed and reviewed with Attending Physician, Dr. Bynum. <Andrew Bynum - Last Filed: 07/21/18 18:50> CCU Objective - Vital Signs / Intake & Output Vital Signs (Last 4 hours): Vital Signs Temp Pulse Resp BP Pulse Ox 07/21/18 17:06 85 22 98/65 L 96 07/21/18 17:00 92 H 16 143/106 H 89 L 07/21/18 16:40 97.2 F L 88 94 L 07/21/18 16:20 97.2 F L 78 84 L 07/21/18 16:01 97.3 F L 91 H 115/67 86 L 07/21/18 16:00 97.3 F L 91 H 96 07/21/18 15:40 97.3 F L 93 H 07/21/18 15:20 97.5 F L 91 H 07/21/18 15:03 115/60 07/21/18 15:02 97.5 F L 88 99/42 L 07/21/18 15:01 97.5 F L 92 H 07/21/18 15:00 97.5 F L 92 H Intake and Output (Last 8hrs): Intake & Output 07/21/18 07/21/18 07/21/18 06:59 14:59 22:59 Intake Total 2950 430 Output Total 100 Balance 2850 430 Weight 90 lb Intake: IV 2950 430 Left Forearm 1600 Left Wrist 80 Right Internal Jugular 900 Output: Urine 100 2-way Urethral 100 - Medications Active Medications: Active Medications Generic Name Dose Route Start Last Admin Trade Name Freq PRN Reason Stop Dose Admin Aspirin 325 mg 07/21/18 10:00 07/21/18 13:24 Aspirin PO 325 mg DAILY MELY Administration Hydrocortisone Sodium Succinate 50 mg 07/21/18 09:45 07/21/18 16:47 Solu-Cortef IVP 50 mg Q6H MELY Administration NOREPINEPHRINE BIT/0.9 % NACL 4 mg in 250 mls @ 15 mls/hr 07/20/18 15:26 07/21/18 16:44 Levophed 4 Mg/ 250 Ml Ns Premixed IV 12 mcg/min .[id number] PRN 45 mls/hr TITRATE PER MD ORDER Administration Protocol 4 MCG/MIN Levetiracetam 500 mg in 100 mls @ 400 mls/hr 07/20/18 22:00 07/21/18 09:20 Keppra 500mg Ivpb IV 400 mls/hr Q12 MELY Administration Midazolam 100 mg/100ml in NS 100 mg in 100 mls @ 1 mls/hr 07/20/18 15:44 Midazolam 100 Mg/100ml In Ns IV .Q24H PRN Sedation Protocol 1 MG/HR Heparin Sodium/Sodium Chloride 25,000 units in 250 mls @ 7.348 mls/hr 07/20/18 17:14 07/21/18 12:30 Heparin 26807 Units/250ml 1/2 Normal Saline IV 12 units/kg/hr .Q24H PRN 4.899 mls/hr ADJUST RATE PER PROTOCOL Titration Protocol 18 UNITS/KG/HR Vasopressin 20 units/ Dextrose 101 mls @ 9.09 mls/hr 07/21/18 09:45 07/21/18 11:20 IV 9.09 mls/hr .[id number] MELY Administration Protocol 0.03 U/MIN Piperacillin Sod/Tazobactam Sod 100 mls @ 25 mls/hr 07/21/18 12:20 07/21/18 13:20 Zosyn 3.375 In Ns 100ml IVPB 07/30/18 12:21 25 mls/hr Q12 MELY Administration Protocol Sodium Bicarbonate 150 meq/ 1,150 mls @ 150 mls/hr 07/21/18 13:00 07/21/18 13:21 Dextrose IV 150 mls/hr .Q7H40M MELY Administration Fentanyl Citrate 1,000 mcg in 100 mls @ 5 mls/hr 07/21/18 13:01 07/21/18 13:17 Fentanyl Citrate/Sodium Chloride 1 Mg/100 Ml IV 50 mcg/hr .Q20H PRN 5 mls/hr TITRATE PER MD ORDER Administration Protocol 50 MCG/HR Pantoprazole Sodium 40 mg 07/20/18 22:00 07/21/18 09:20 Protonix Inj IVP 40 mg Q12 MELY Administration - Patient Studies Lab Studies: Microbiology Studies 07/20/18 16:01 Blood Culture - Preliminary Blood-Venous NO GROWTH AFTER 24 HOURS 07/20/18 12:08 Blood Culture - Preliminary Blood-Venous NO GROWTH AFTER 24 HOURS Lab Studies 07/21/18 07/21/18 07/21/18 Range/Units 17:23 17:07 17:07 WBC 13.0 H (4.5-11.0) 10^3/uL RBC 3.41 L (3.5-6.1) 10^6/uL Hgb 11.2 L (12.0-16.0) g/dL Hct 32.7 L (36.0-48.0) % MCV 95.9 (80.0-105.0) fl MCH 32.8 (25.0-35.0) pg MCHC 34.3 (31.0-37.0) g/dl RDW 16.4 H (11.5-14.5) % Plt Count 137 (120.0-450.0) 10^3/uL MPV 12.3 H (7.0-11.0) fl APTT 94.7 H (25.1-36.5) Seconds pCO2 (35-45) mm/Hg pO2 (80-100) mm/Hg HCO3 (21-28) mmol/L ABG pH (7.35-7.45) ABG Total CO2 (22-28) mmol.L ABG O2 Saturation (95-98) % ABG O2 Content (15-23) ML/dl ABG Base Excess (-2.0-3.0) mmol/L ABG Hemoglobin (11.7-17.4) g/dL ABG Carboxyhemoglobin (0.5-1.5) % POC ABG HHb (Measured) (0-5) % ABG Methemoglobin (0.0-3.0) % ABG O2 Capacity (16-24) mL/dl ABG Potassium (3.6-5.2) mmol/L Hgb O2 Saturation (95.0-98.0) % Glucose (65-105) mg/dl Lactate (0.7-2.1) mmol/L FiO2 % Sodium (132-148) mmol/L Potassium (3.6-5.0) mmol/L Chloride (98-107) mmol/L Carbon Dioxide (21-33) mmol/L Anion Gap (10-20) BUN (7-21) mg/dL Creatinine (0.7-1.2) mg/dl Est GFR ( Amer) Est GFR (Non-Af Amer) POC Glucose (mg/dL) 165 H (65-110) mg/dL Random Glucose (70-110) mg/dL Calcium (8.4-10.5) mg/dL Phosphorus (2.5-4.5) mg/dL Magnesium (1.7-2.2) mg/dL Total Bilirubin (0.2-1.3) mg/dL AST (14-36) U/L ALT (7-56) U/L Alkaline Phosphatase (38-126) U/L Lactate Dehydrogenase (333-699) U/L Troponin I ng/mL Total Protein (5.8-8.3) g/dL Albumin (3.0-4.8) g/dL Globulin gm/dL Albumin/Globulin Ratio (1.1-1.8) Triglycerides (35-160) mg/dL Cholesterol (130-200) mg/dL LDL Cholesterol Direct (0-129) mg/dL HDL Cholesterol (29-60) mg/dL Lipase (23-300) U/L Prolactin (3.0-18.9) ng/mL Arterial Blood Potassium (3.6-5.2) mmol/L Urine Color (YELLOW) Urine Appearance (CLEAR) Urine pH (4.7-8.0) Ur Specific [place] (1.005-1.035) Urine Protein (<30 mg/dL) mg/dL Urine Glucose (UA) (NEGATIVE) mg/dL Urine Ketones (NEGATIVE) mg/dL Urine Blood (NEGATIVE) Urine Nitrate (NEGATIVE) Urine Bilirubin (NEGATIVE) Urine Urobilinogen (<1 E.U./dL) E.U./dL Ur Leukocyte Esterase (NEGATIVE) Thomas/uL Urine RBC (0-2) /hpf Urine WBC (0-6) /hpf Ur Epithelial Cells (0-5) /hpf Amorphous Sediment Urine Bacteria (NEG) Hyaline Casts /hpf Fine Granular Casts (0-2) /hpf Salicylates (2.0-20.0) mg/dL Urine Opiates Screen (NEGATIVE) Urine Methadone Screen (NEGATIVE) Acetaminophen (10.0-20.0) ug/ml Ur Barbiturates Screen (NEGATIVE) Ur Phencyclidine Scrn (NEGATIVE) Ur Amphetamines Screen (NEGATIVE) U Benzodiazepines Scrn (NEGATIVE) U Oth Cocaine Metabols (NEGATIVE) U Cannabinoids Screen (NEGATIVE) Blood Type Blood Type Confirm Antibody Screen BBK History Checked 07/21/18 07/21/18 07/21/18 Range/Units 17:07 11:35 10:45 WBC (4.5-11.0) 10^3/uL RBC (3.5-6.1) 10^6/uL Hgb (12.0-16.0) g/dL Hct (36.0-48.0) % MCV (80.0-105.0) fl MCH (25.0-35.0) pg MCHC (31.0-37.0) g/dl RDW (11.5-14.5) % Plt Count (120.0-450.0) 10^3/uL MPV (7.0-11.0) fl APTT 181.4 H* (25.1-36.5) Seconds pCO2 19 L* (35-45) mm/Hg pO2 67.0 L (80-100) mm/Hg HCO3 8.9 L* (21-28) mmol/L ABG pH 7.28 L (7.35-7.45) ABG Total CO2 9.5 L (22-28) mmol.L ABG O2 Saturation 95.4 (95-98) % ABG O2 Content 14.2 L (15-23) ML/dl ABG Base Excess -15.9 L (-2.0-3.0) mmol/L ABG Hemoglobin 10.8 L (11.7-17.4) g/dL ABG Carboxyhemoglobin 1.4 (0.5-1.5) % POC ABG HHb (Measured) 4.5 (0-5) % ABG Methemoglobin 0.6 (0.0-3.0) % ABG O2 Capacity 14.9 L (16-24) mL/dl ABG Potassium (3.6-5.2) mmol/L Hgb O2 Saturation 93.5 L (95.0-98.0) % Glucose (65-105) mg/dl Lactate (0.7-2.1) mmol/L FiO2 40.0 % Sodium (132-148) mmol/L Potassium (3.6-5.0) mmol/L Chloride (98-107) mmol/L Carbon Dioxide (21-33) mmol/L Anion Gap (10-20) BUN (7-21) mg/dL Creatinine (0.7-1.2) mg/dl Est GFR ( Amer) Est GFR (Non-Af Amer) POC Glucose (mg/dL) (65-110) mg/dL Random Glucose (70-110) mg/dL Calcium (8.4-10.5) mg/dL Phosphorus (2.5-4.5) mg/dL Magnesium (1.7-2.2) mg/dL Total Bilirubin (0.2-1.3) mg/dL AST (14-36) U/L ALT (7-56) U/L Alkaline Phosphatase (38-126) U/L Lactate Dehydrogenase (333-699) U/L Troponin I ng/mL Total Protein (5.8-8.3) g/dL Albumin (3.0-4.8) g/dL Globulin gm/dL Albumin/Globulin Ratio (1.1-1.8) Triglycerides (35-160) mg/dL Cholesterol (130-200) mg/dL LDL Cholesterol Direct (0-129) mg/dL HDL Cholesterol (29-60) mg/dL Lipase (23-300) U/L Prolactin (3.0-18.9) ng/mL Arterial Blood Potassium (3.6-5.2) mmol/L Urine Color (YELLOW) Urine Appearance (CLEAR) Urine pH (4.7-8.0) Ur Specific [place] (1.005-1.035) Urine Protein (<30 mg/dL) mg/dL Urine Glucose (UA) (NEGATIVE) mg/dL Urine Ketones (NEGATIVE) mg/dL Urine Blood (NEGATIVE) Urine Nitrate (NEGATIVE) Urine Bilirubin (NEGATIVE) Urine Urobilinogen (<1 E.U./dL) E.U./dL Ur Leukocyte Esterase (NEGATIVE) Thomas/uL Urine RBC (0-2) /hpf Urine WBC (0-6) /hpf Ur Epithelial Cells (0-5) /hpf Amorphous Sediment Urine Bacteria (NEG) Hyaline Casts /hpf Fine Granular Casts (0-2) /hpf Salicylates < 1 L (2.0-20.0) mg/dL Urine Opiates Screen (NEGATIVE) Urine Methadone Screen (NEGATIVE) Acetaminophen < 10.0 L (10.0-20.0) ug/ml Ur Barbiturates Screen (NEGATIVE) Ur Phencyclidine Scrn (NEGATIVE) Ur Amphetamines Screen (NEGATIVE) U Benzodiazepines Scrn (NEGATIVE) U Oth Cocaine Metabols (NEGATIVE) U Cannabinoids Screen (NEGATIVE) Blood Type Blood Type Confirm Antibody Screen BBK History Checked 07/21/18 07/21/18 07/21/18 Range/Units 06:45 06:30 06:30 WBC (4.5-11.0) 10^3/uL RBC (3.5-6.1) 10^6/uL Hgb (12.0-16.0) g/dL Hct (36.0-48.0) % MCV (80.0-105.0) fl MCH (25.0-35.0) pg MCHC (31.0-37.0) g/dl RDW (11.5-14.5) % Plt Count (120.0-450.0) 10^3/uL MPV (7.0-11.0) fl APTT (25.1-36.5) Seconds pCO2 (35-45) mm/Hg pO2 (80-100) mm/Hg HCO3 (21-28) mmol/L ABG pH (7.35-7.45) ABG Total CO2 (22-28) mmol.L ABG O2 Saturation (95-98) % ABG O2 Content (15-23) ML/dl ABG Base Excess (-2.0-3.0) mmol/L ABG Hemoglobin (11.7-17.4) g/dL ABG Carboxyhemoglobin (0.5-1.5) % POC ABG HHb (Measured) (0-5) % ABG Methemoglobin (0.0-3.0) % ABG O2 Capacity (16-24) mL/dl ABG Potassium (3.6-5.2) mmol/L Hgb O2 Saturation (95.0-98.0) % Glucose (65-105) mg/dl Lactate (0.7-2.1) mmol/L FiO2 % Sodium (132-148) mmol/L Potassium (3.6-5.0) mmol/L Chloride (98-107) mmol/L Carbon Dioxide (21-33) mmol/L Anion Gap (10-20) BUN (7-21) mg/dL Creatinine (0.7-1.2) mg/dl Est GFR ( Amer) Est GFR (Non-Af Amer) POC Glucose (mg/dL) (65-110) mg/dL Random Glucose (70-110) mg/dL Calcium (8.4-10.5) mg/dL Phosphorus (2.5-4.5) mg/dL Magnesium (1.7-2.2) mg/dL Total Bilirubin (0.2-1.3) mg/dL AST (14-36) U/L ALT (7-56) U/L Alkaline Phosphatase (38-126) U/L Lactate Dehydrogenase 907 H (333-699) U/L Troponin I ng/mL Total Protein (5.8-8.3) g/dL Albumin (3.0-4.8) g/dL Globulin gm/dL Albumin/Globulin Ratio (1.1-1.8) Triglycerides 92 (35-160) mg/dL Cholesterol 100 L (130-200) mg/dL LDL Cholesterol Direct 43 (0-129) mg/dL HDL Cholesterol 59 (29-60) mg/dL Lipase (23-300) U/L Prolactin (3.0-18.9) ng/mL Arterial Blood Potassium (3.6-5.2) mmol/L Urine Color (YELLOW) Urine Appearance (CLEAR) Urine pH (4.7-8.0) Ur Specific [place] (1.005-1.035) Urine Protein (<30 mg/dL) mg/dL Urine Glucose (UA) (NEGATIVE) mg/dL Urine Ketones (NEGATIVE) mg/dL Urine Blood (NEGATIVE) Urine Nitrate (NEGATIVE) Urine Bilirubin (NEGATIVE) Urine Urobilinogen (<1 E.U./dL) E.U./dL Ur Leukocyte Esterase (NEGATIVE) Thomas/uL Urine RBC (0-2) /hpf Urine WBC (0-6) /hpf Ur Epithelial Cells (0-5) /hpf Amorphous Sediment Urine Bacteria (NEG) Hyaline Casts /hpf Fine Granular Casts (0-2) /hpf Salicylates (2.0-20.0) mg/dL Urine Opiates Screen (NEGATIVE) Urine Methadone Screen (NEGATIVE) Acetaminophen (10.0-20.0) ug/ml Ur Barbiturates Screen (NEGATIVE) Ur Phencyclidine Scrn (NEGATIVE) Ur Amphetamines Screen (NEGATIVE) U Benzodiazepines Scrn (NEGATIVE) U Oth Cocaine Metabols (NEGATIVE) U Cannabinoids Screen (NEGATIVE) Blood Type Blood Type Confirm O POSITIVE Antibody Screen BBK History Checked 07/21/18 07/21/18 07/21/18 Range/Units 06:00 06:00 06:00 WBC (4.5-11.0) 10^3/uL RBC (3.5-6.1) 10^6/uL Hgb (12.0-16.0) g/dL Hct (36.0-48.0) % MCV (80.0-105.0) fl MCH (25.0-35.0) pg MCHC (31.0-37.0) g/dl RDW (11.5-14.5) % Plt Count (120.0-450.0) 10^3/uL MPV (7.0-11.0) fl APTT (25.1-36.5) Seconds pCO2 (35-45) mm/Hg pO2 (80-100) mm/Hg HCO3 (21-28) mmol/L ABG pH (7.35-7.45) ABG Total CO2 (22-28) mmol.L ABG O2 Saturation (95-98) % ABG O2 Content (15-23) ML/dl ABG Base Excess (-2.0-3.0) mmol/L ABG Hemoglobin (11.7-17.4) g/dL ABG Carboxyhemoglobin (0.5-1.5) % POC ABG HHb (Measured) (0-5) % ABG Methemoglobin (0.0-3.0) % ABG O2 Capacity (16-24) mL/dl ABG Potassium (3.6-5.2) mmol/L Hgb O2 Saturation (95.0-98.0) % Glucose (65-105) mg/dl Lactate (0.7-2.1) mmol/L FiO2 % Sodium 145 (132-148) mmol/L Potassium 3.1 L (3.6-5.0) mmol/L Chloride 118 H (98-107) mmol/L Carbon Dioxide 12 L (21-33) mmol/L Anion Gap 18 (10-20) BUN 25 H (7-21) mg/dL Creatinine 1.5 H (0.7-1.2) mg/dl Est GFR ( Amer) 43 Est GFR (Non-Af Amer) 36 POC Glucose (mg/dL) (65-110) mg/dL Random Glucose 77 (70-110) mg/dL Calcium 6.9 L* (8.4-10.5) mg/dL Phosphorus 4.1 (2.5-4.5) mg/dL Magnesium 2.0 (1.7-2.2) mg/dL Total Bilirubin 0.4 (0.2-1.3) mg/dL AST 35 (14-36) U/L ALT 32 (7-56) U/L Alkaline Phosphatase 63 (38-126) U/L Lactate Dehydrogenase (333-699) U/L Troponin I ng/mL Total Protein 4.7 L (5.8-8.3) g/dL Albumin 2.3 L (3.0-4.8) g/dL Globulin 2.4 gm/dL Albumin/Globulin Ratio 0.9 L (1.1-1.8) Triglycerides (35-160) mg/dL Cholesterol (130-200) mg/dL LDL Cholesterol Direct (0-129) mg/dL HDL Cholesterol (29-60) mg/dL Lipase 5554 H (23-300) U/L Prolactin (3.0-18.9) ng/mL Arterial Blood Potassium (3.6-5.2) mmol/L Urine Color Yellow (YELLOW) Urine Appearance Sl cloudy (CLEAR) Urine pH 6.0 (4.7-8.0) Ur Specific [place] 1.025 (1.005-1.035) Urine Protein 30 H (<30 mg/dL) mg/dL Urine Glucose (UA) Negative (NEGATIVE) mg/dL Urine Ketones 15 H (NEGATIVE) mg/dL Urine Blood Moderate H (NEGATIVE) Urine Nitrate Negative (NEGATIVE) Urine Bilirubin Large H (NEGATIVE) Urine Urobilinogen 0.2 (<1 E.U./dL) E.U./dL Ur Leukocyte Esterase Small H (NEGATIVE) Thomas/uL Urine RBC 2 - 5 (0-2) /hpf Urine WBC 5 - 10 (0-6) /hpf Ur Epithelial Cells 1 - 3 (0-5) /hpf Amorphous Sediment Few Urine Bacteria Mod (NEG) Hyaline Casts 1-3 /hpf Fine Granular Casts 2 - 5 (0-2) /hpf Salicylates (2.0-20.0) mg/dL Urine Opiates Screen (NEGATIVE) Urine Methadone Screen (NEGATIVE) Acetaminophen (10.0-20.0) ug/ml Ur Barbiturates Screen (NEGATIVE) Ur Phencyclidine Scrn (NEGATIVE) Ur Amphetamines Screen (NEGATIVE) U Benzodiazepines Scrn (NEGATIVE) U Oth Cocaine Metabols (NEGATIVE) U Cannabinoids Screen (NEGATIVE) Blood Type O POSITIVE Blood Type Confirm Antibody Screen Negative BBK History Checked No verified bt 07/21/18 07/21/18 07/21/18 Range/Units 06:00 05:45 05:00 WBC 15.2 H (4.5-11.0) 10^3/uL RBC 3.56 (3.5-6.1) 10^6/uL Hgb 11.5 L D (12.0-16.0) g/dL Hct 33.8 L (36.0-48.0) % MCV 94.9 (80.0-105.0) fl MCH 32.3 (25.0-35.0) pg MCHC 34.0 (31.0-37.0) g/dl RDW 15.6 H (11.5-14.5) % Plt Count 172 (120.0-450.0) 10^3/uL MPV 11.5 H (7.0-11.0) fl APTT (25.1-36.5) Seconds pCO2 23 L (35-45) mm/Hg pO2 52.0 L (80-100) mm/Hg HCO3 10.3 L (21-28) mmol/L ABG pH 7.26 L (7.35-7.45) ABG Total CO2 11.0 L (22-28) mmol.L ABG O2 Saturation 87.3 L (95-98) % ABG O2 Content (15-23) ML/dl ABG Base Excess -14.8 L (-2.0-3.0) mmol/L ABG Hemoglobin (11.7-17.4) g/dL ABG Carboxyhemoglobin (0.5-1.5) % POC ABG HHb (Measured) (0-5) % ABG Methemoglobin (0.0-3.0) % ABG O2 Capacity (16-24) mL/dl ABG Potassium 2.9 L (3.6-5.2) mmol/L Hgb O2 Saturation (95.0-98.0) % Glucose 64 L (65-105) mg/dl Lactate 1.4 (0.7-2.1) mmol/L FiO2 50.0 % Sodium 148.0 (132-148) mmol/L Potassium (3.6-5.0) mmol/L Chloride 115.0 H (98-107) mmol/L Carbon Dioxide (21-33) mmol/L Anion Gap (10-20) BUN (7-21) mg/dL Creatinine (0.7-1.2) mg/dl Est GFR ( Amer) Est GFR (Non-Af Amer) POC Glucose (mg/dL) (65-110) mg/dL Random Glucose (70-110) mg/dL Calcium (8.4-10.5) mg/dL Phosphorus (2.5-4.5) mg/dL Magnesium (1.7-2.2) mg/dL Total Bilirubin (0.2-1.3) mg/dL AST (14-36) U/L ALT (7-56) U/L Alkaline Phosphatase (38-126) U/L Lactate Dehydrogenase (333-699) U/L Troponin I ng/mL Total Protein (5.8-8.3) g/dL Albumin (3.0-4.8) g/dL Globulin gm/dL Albumin/Globulin Ratio (1.1-1.8) Triglycerides (35-160) mg/dL Cholesterol (130-200) mg/dL LDL Cholesterol Direct (0-129) mg/dL HDL Cholesterol (29-60) mg/dL Lipase (23-300) U/L Prolactin (3.0-18.9) ng/mL Arterial Blood Potassium 2.9 L (3.6-5.2) mmol/L Urine Color (YELLOW) Urine Appearance (CLEAR) Urine pH (4.7-8.0) Ur Specific [place] (1.005-1.035) Urine Protein (<30 mg/dL) mg/dL Urine Glucose (UA) (NEGATIVE) mg/dL Urine Ketones (NEGATIVE) mg/dL Urine Blood (NEGATIVE) Urine Nitrate (NEGATIVE) Urine Bilirubin (NEGATIVE) Urine Urobilinogen (<1 E.U./dL) E.U./dL Ur Leukocyte Esterase (NEGATIVE) Thomas/uL Urine RBC (0-2) /hpf Urine WBC (0-6) /hpf Ur Epithelial Cells (0-5) /hpf Amorphous Sediment Urine Bacteria (NEG) Hyaline Casts /hpf Fine Granular Casts (0-2) /hpf Salicylates (2.0-20.0) mg/dL Urine Opiates Screen Negative (NEGATIVE) Urine Methadone Screen Negative (NEGATIVE) Acetaminophen (10.0-20.0) ug/ml Ur Barbiturates Screen Negative (NEGATIVE) Ur Phencyclidine Scrn Negative (NEGATIVE) Ur Amphetamines Screen Negative (NEGATIVE) U Benzodiazepines Scrn Negative (NEGATIVE) U Oth Cocaine Metabols Negative (NEGATIVE) U Cannabinoids Screen Positive H (NEGATIVE) Blood Type Blood Type Confirm Antibody Screen BBK History Checked 07/21/18 07/20/18 07/20/18 Range/Units 02:00 21:33 16:01 WBC (4.5-11.0) 10^3/uL RBC (3.5-6.1) 10^6/uL Hgb (12.0-16.0) g/dL Hct (36.0-48.0) % MCV (80.0-105.0) fl MCH (25.0-35.0) pg MCHC (31.0-37.0) g/dl RDW (11.5-14.5) % Plt Count (120.0-450.0) 10^3/uL MPV (7.0-11.0) fl APTT 130.0 H* (25.1-36.5) Seconds pCO2 (35-45) mm/Hg pO2 (80-100) mm/Hg HCO3 (21-28) mmol/L ABG pH (7.35-7.45) ABG Total CO2 (22-28) mmol.L ABG O2 Saturation (95-98) % ABG O2 Content (15-23) ML/dl ABG Base Excess (-2.0-3.0) mmol/L ABG Hemoglobin (11.7-17.4) g/dL ABG Carboxyhemoglobin (0.5-1.5) % POC ABG HHb (Measured) (0-5) % ABG Methemoglobin (0.0-3.0) % ABG O2 Capacity (16-24) mL/dl ABG Potassium (3.6-5.2) mmol/L Hgb O2 Saturation (95.0-98.0) % Glucose (65-105) mg/dl Lactate (0.7-2.1) mmol/L FiO2 % Sodium 144 (132-148) mmol/L Potassium 2.0 L* D (3.6-5.0) mmol/L Chloride 115 H D (98-107) mmol/L Carbon Dioxide 12 L (21-33) mmol/L Anion Gap 20 (10-20) BUN 27 H (7-21) mg/dL Creatinine 1.4 H (0.7-1.2) mg/dl Est GFR ( Amer) 47 Est GFR (Non-Af Amer) 39 POC Glucose (mg/dL) (65-110) mg/dL Random Glucose 80 (70-110) mg/dL Calcium 7.1 L (8.4-10.5) mg/dL Phosphorus 5.0 H (2.5-4.5) mg/dL Magnesium 1.3 L (1.7-2.2) mg/dL Total Bilirubin 0.4 (0.2-1.3) mg/dL AST 33 (14-36) U/L ALT 26 (7-56) U/L Alkaline Phosphatase 69 (38-126) U/L Lactate Dehydrogenase (333-699) U/L Troponin I 0.01 D ng/mL Total Protein 4.6 L (5.8-8.3) g/dL Albumin 2.3 L (3.0-4.8) g/dL Globulin 2.3 gm/dL Albumin/Globulin Ratio 1.0 L (1.1-1.8) Triglycerides (35-160) mg/dL Cholesterol (130-200) mg/dL LDL Cholesterol Direct (0-129) mg/dL HDL Cholesterol (29-60) mg/dL Lipase (23-300) U/L Prolactin 98.1 H (3.0-18.9) ng/mL Arterial Blood Potassium (3.6-5.2) mmol/L Urine Color (YELLOW) Urine Appearance (CLEAR) Urine pH (4.7-8.0) Ur Specific [place] (1.005-1.035) Urine Protein (<30 mg/dL) mg/dL Urine Glucose (UA) (NEGATIVE) mg/dL Urine Ketones (NEGATIVE) mg/dL Urine Blood (NEGATIVE) Urine Nitrate (NEGATIVE) Urine Bilirubin (NEGATIVE) Urine Urobilinogen (<1 E.U./dL) E.U./dL Ur Leukocyte Esterase (NEGATIVE) Thomas/uL Urine RBC (0-2) /hpf Urine WBC (0-6) /hpf Ur Epithelial Cells (0-5) /hpf Amorphous Sediment Urine Bacteria (NEG) Hyaline Casts /hpf Fine Granular Casts (0-2) /hpf Salicylates (2.0-20.0) mg/dL Urine Opiates Screen (NEGATIVE) Urine Methadone Screen (NEGATIVE) Acetaminophen (10.0-20.0) ug/ml Ur Barbiturates Screen (NEGATIVE) Ur Phencyclidine Scrn (NEGATIVE) Ur Amphetamines Screen (NEGATIVE) U Benzodiazepines Scrn (NEGATIVE) U Oth Cocaine Metabols (NEGATIVE) U Cannabinoids Screen (NEGATIVE) Blood Type Blood Type Confirm Antibody Screen BBK History Checked Laboratory Results - last 24 hr 07/20/18 07/20/18 07/21/18 16:01 21:33 02:00 WBC RBC Hgb Hct MCV MCH MCHC RDW Plt Count MPV APTT 130.0 H* pCO2 pO2 HCO3 ABG pH ABG Total CO2 ABG O2 Saturation ABG O2 Content ABG Base Excess ABG Hemoglobin ABG Carboxyhemoglobin POC ABG HHb (Measured) ABG Methemoglobin ABG O2 Capacity ABG Potassium Hgb O2 Saturation Glucose Lactate FiO2 Sodium 144 Potassium 2.0 L* D Chloride 115 H D Carbon Dioxide 12 L Anion Gap 20 BUN 27 H Creatinine 1.4 H Est GFR ( Amer) 47 Est GFR (Non-Af Amer) 39 POC Glucose (mg/dL) Random Glucose 80 Calcium 7.1 L Phosphorus 5.0 H Magnesium 1.3 L Total Bilirubin 0.4 AST 33 ALT 26 Alkaline Phosphatase 69 Lactate Dehydrogenase Troponin I 0.01 D Total Protein 4.6 L Albumin 2.3 L Globulin 2.3 Albumin/Globulin Ratio 1.0 L Triglycerides Cholesterol LDL Cholesterol Direct HDL Cholesterol Lipase Prolactin 98.1 H Arterial Blood Potassium Urine Color Urine Appearance Urine pH Ur Specific [place] Urine Protein Urine Glucose (UA) Urine Ketones Urine Blood Urine Nitrate Urine Bilirubin Urine Urobilinogen Ur Leukocyte Esterase Urine RBC Urine WBC Ur Epithelial Cells Amorphous Sediment Urine Bacteria Hyaline Casts Fine Granular Casts Salicylates Urine Opiates Screen Urine Methadone Screen Acetaminophen Ur Barbiturates Screen Ur Phencyclidine Scrn Ur Amphetamines Screen U Benzodiazepines Scrn U Oth Cocaine Metabols U Cannabinoids Screen Blood Type Blood Type Confirm Antibody Screen BBK History Checked 07/21/18 07/21/18 07/21/18 05:00 05:45 06:00 WBC 15.2 H RBC 3.56 Hgb 11.5 L D Hct 33.8 L MCV 94.9 MCH 32.3 MCHC 34.0 RDW 15.6 H Plt Count 172 MPV 11.5 H APTT pCO2 23 L pO2 52.0 L HCO3 10.3 L ABG pH 7.26 L ABG Total CO2 11.0 L ABG O2 Saturation 87.3 L ABG O2 Content ABG Base Excess -14.8 L ABG Hemoglobin ABG Carboxyhemoglobin POC ABG HHb (Measured) ABG Methemoglobin ABG O2 Capacity ABG Potassium 2.9 L Hgb O2 Saturation Glucose 64 L Lactate 1.4 FiO2 50.0 Sodium 148.0 Potassium Chloride 115.0 H Carbon Dioxide Anion Gap BUN Creatinine Est GFR ( Amer) Est GFR (Non-Af Amer) POC Glucose (mg/dL) Random Glucose Calcium Phosphorus Magnesium Total Bilirubin AST ALT Alkaline Phosphatase Lactate Dehydrogenase Troponin I Total Protein Albumin Globulin Albumin/Globulin Ratio Triglycerides Cholesterol LDL Cholesterol Direct HDL Cholesterol Lipase Prolactin Arterial Blood Potassium 2.9 L Urine Color Urine Appearance Urine pH Ur Specific [place] Urine Protein Urine Glucose (UA) Urine Ketones Urine Blood Urine Nitrate Urine Bilirubin Urine Urobilinogen Ur Leukocyte Esterase Urine RBC Urine WBC Ur Epithelial Cells Amorphous Sediment Urine Bacteria Hyaline Casts Fine Granular Casts Salicylates Urine Opiates Screen Negative Urine Methadone Screen Negative Acetaminophen Ur Barbiturates Screen Negative Ur Phencyclidine Scrn Negative Ur Amphetamines Screen Negative U Benzodiazepines Scrn Negative U Oth Cocaine Metabols Negative U Cannabinoids Screen Positive H Blood Type Blood Type Confirm Antibody Screen BBK History Checked 07/21/18 07/21/18 07/21/18 06:00 06:00 06:00 WBC RBC Hgb Hct MCV MCH MCHC RDW Plt Count MPV APTT pCO2 pO2 HCO3 ABG pH ABG Total CO2 ABG O2 Saturation ABG O2 Content ABG Base Excess ABG Hemoglobin ABG Carboxyhemoglobin POC ABG HHb (Measured) ABG Methemoglobin ABG O2 Capacity ABG Potassium Hgb O2 Saturation Glucose Lactate FiO2 Sodium 145 Potassium 3.1 L Chloride 118 H Carbon Dioxide 12 L Anion Gap 18 BUN 25 H Creatinine 1.5 H Est GFR ( Amer) 43 Est GFR (Non-Af Amer) 36 POC Glucose (mg/dL) Random Glucose 77 Calcium 6.9 L* Phosphorus 4.1 Magnesium 2.0 Total Bilirubin 0.4 AST 35 ALT 32 Alkaline Phosphatase 63 Lactate Dehydrogenase Troponin I Total Protein 4.7 L Albumin 2.3 L Globulin 2.4 Albumin/Globulin Ratio 0.9 L Triglycerides Cholesterol LDL Cholesterol Direct HDL Cholesterol Lipase 5554 H Prolactin Arterial Blood Potassium Urine Color Yellow Urine Appearance Sl cloudy Urine pH 6.0 Ur Specific [place] 1.025 Urine Protein 30 H Urine Glucose (UA) Negative Urine Ketones 15 H Urine Blood Moderate H Urine Nitrate Negative Urine Bilirubin Large H Urine Urobilinogen 0.2 Ur Leukocyte Esterase Small H Urine RBC 2 - 5 Urine WBC 5 - 10 Ur Epithelial Cells 1 - 3 Amorphous Sediment Few Urine Bacteria Mod Hyaline Casts 1-3 Fine Granular Casts 2 - 5 Salicylates Urine Opiates Screen Urine Methadone Screen Acetaminophen Ur Barbiturates Screen Ur Phencyclidine Scrn Ur Amphetamines Screen U Benzodiazepines Scrn U Oth Cocaine Metabols U Cannabinoids Screen Blood Type O POSITIVE Blood Type Confirm Antibody Screen Negative BBK History Checked No verified bt 07/21/18 07/21/18 07/21/18 06:30 06:30 06:45 WBC RBC Hgb Hct MCV MCH MCHC RDW Plt Count MPV APTT pCO2 pO2 HCO3 ABG pH ABG Total CO2 ABG O2 Saturation ABG O2 Content ABG Base Excess ABG Hemoglobin ABG Carboxyhemoglobin POC ABG HHb (Measured) ABG Methemoglobin ABG O2 Capacity ABG Potassium Hgb O2 Saturation Glucose Lactate FiO2 Sodium Potassium Chloride Carbon Dioxide Anion Gap BUN Creatinine Est GFR ( Amer) Est GFR (Non-Af Amer) POC Glucose (mg/dL) Random Glucose Calcium Phosphorus Magnesium Total Bilirubin AST ALT Alkaline Phosphatase Lactate Dehydrogenase 907 H Troponin I Total Protein Albumin Globulin Albumin/Globulin Ratio Triglycerides 92 Cholesterol 100 L LDL Cholesterol Direct 43 HDL Cholesterol 59 Lipase Prolactin Arterial Blood Potassium Urine Color Urine Appearance Urine pH Ur Specific [place] Urine Protein Urine Glucose (UA) Urine Ketones Urine Blood Urine Nitrate Urine Bilirubin Urine Urobilinogen Ur Leukocyte Esterase Urine RBC Urine WBC Ur Epithelial Cells Amorphous Sediment Urine Bacteria Hyaline Casts Fine Granular Casts Salicylates Urine Opiates Screen Urine Methadone Screen Acetaminophen Ur Barbiturates Screen Ur Phencyclidine Scrn Ur Amphetamines Screen U Benzodiazepines Scrn U Oth Cocaine Metabols U Cannabinoids Screen Blood Type Blood Type Confirm O POSITIVE Antibody Screen BBK History Checked 07/21/18 07/21/18 07/21/18 10:45 11:35 17:07 WBC RBC Hgb Hct MCV MCH MCHC RDW Plt Count MPV APTT 181.4 H* pCO2 19 L* pO2 67.0 L HCO3 8.9 L* ABG pH 7.28 L ABG Total CO2 9.5 L ABG O2 Saturation 95.4 ABG O2 Content 14.2 L ABG Base Excess -15.9 L ABG Hemoglobin 10.8 L ABG Carboxyhemoglobin 1.4 POC ABG HHb (Measured) 4.5 ABG Methemoglobin 0.6 ABG O2 Capacity 14.9 L ABG Potassium Hgb O2 Saturation 93.5 L Glucose Lactate FiO2 40.0 Sodium Potassium Chloride Carbon Dioxide Anion Gap BUN Creatinine Est GFR ( Amer) Est GFR (Non-Af Amer) POC Glucose (mg/dL) Random Glucose Calcium Phosphorus Magnesium Total Bilirubin AST ALT Alkaline Phosphatase Lactate Dehydrogenase Troponin I Total Protein Albumin Globulin Albumin/Globulin Ratio Triglycerides Cholesterol LDL Cholesterol Direct HDL Cholesterol Lipase Prolactin Arterial Blood Potassium Urine Color Urine Appearance Urine pH Ur Specific [place] Urine Protein Urine Glucose (UA) Urine Ketones Urine Blood Urine Nitrate Urine Bilirubin Urine Urobilinogen Ur Leukocyte Esterase Urine RBC Urine WBC Ur Epithelial Cells Amorphous Sediment Urine Bacteria Hyaline Casts Fine Granular Casts Salicylates < 1 L Urine Opiates Screen Urine Methadone Screen Acetaminophen < 10.0 L Ur Barbiturates Screen Ur Phencyclidine Scrn Ur Amphetamines Screen U Benzodiazepines Scrn U Oth Cocaine Metabols U Cannabinoids Screen Blood Type Blood Type Confirm Antibody Screen BBK History Checked 07/21/18 07/21/18 07/21/18 17:07 17:07 17:23 WBC 13.0 H RBC 3.41 L Hgb 11.2 L Hct 32.7 L MCV 95.9 MCH 32.8 MCHC 34.3 RDW 16.4 H Plt Count 137 MPV 12.3 H APTT 94.7 H pCO2 pO2 HCO3 ABG pH ABG Total CO2 ABG O2 Saturation ABG O2 Content ABG Base Excess ABG Hemoglobin ABG Carboxyhemoglobin POC ABG HHb (Measured) ABG Methemoglobin ABG O2 Capacity ABG Potassium Hgb O2 Saturation Glucose Lactate FiO2 Sodium Potassium Chloride Carbon Dioxide Anion Gap BUN Creatinine Est GFR ( Amer) Est GFR (Non-Af Amer) POC Glucose (mg/dL) 165 H Random Glucose Calcium Phosphorus Magnesium Total Bilirubin AST ALT Alkaline Phosphatase Lactate Dehydrogenase Troponin I Total Protein Albumin Globulin Albumin/Globulin Ratio Triglycerides Cholesterol LDL Cholesterol Direct HDL Cholesterol Lipase Prolactin Arterial Blood Potassium Urine Color Urine Appearance Urine pH Ur Specific [place] Urine Protein Urine Glucose (UA) Urine Ketones Urine Blood Urine Nitrate Urine Bilirubin Urine Urobilinogen Ur Leukocyte Esterase Urine RBC Urine WBC Ur Epithelial Cells Amorphous Sediment Urine Bacteria Hyaline Casts Fine Granular Casts Salicylates Urine Opiates Screen Urine Methadone Screen Acetaminophen Ur Barbiturates Screen Ur Phencyclidine Scrn Ur Amphetamines Screen U Benzodiazepines Scrn U Oth Cocaine Metabols U Cannabinoids Screen Blood Type Blood Type Confirm Antibody Screen BBK History Checked EKG/Cardiology Studies: Cardiology / EKG Studies 07/21/18 09:34 EKG [ELECTROCARDIOGRAM] Stat Comment: Reason For Exam: QTc Critical Care Progress Note - Nutrition Nutrition: Nutrition Category Date Time Status NPO Diet [DIET] Diets 07/20/18 Breakfast Ordered Attending/Attestation - Attestation I have personally seen and examined this patient.: Yes I have fully participated in the care of the patient.: Yes I have reviewed all pertinent clinical information: Yes Notes (Text): 07/21/18 18:[address] Bynum note
[2018-07-21 17:20] LABS: HEMOGLOBIN 11.2 g/dL (12.0-16.0); MEAN CELL VOLUME 95.9 fl (80.0-105.0); MEAN CORPUSCULAR HEMOGLOBIN 32.8 pg (25.0-35.0); MEAN CORPUSCULAR HGB CONC 34.3 g/dl (31.0-37.0); MEAN PLATELET VOLUME 12.3 fl (7.0-11.0); RBC 3.41 10^6/uL (3.5-6.1); RED CELL DISTRIBUTION WIDTH 16.4 % (11.5-14.5)
[2018-07-21 17:55] LABS: ACETAMINOPHEN < 10.0 ug/ml (10.0-20.0); SALICYLATE < 1 mg/dL (2.0-20.0)
--- NOTE | 2018-07-21 18:59 | MRI ---
Date of service: 07/21/2018 PROCEDURE: MRI BRAIN WITHOUT CONTRAST HISTORY: r/o ischemic stroke COMPARISON: Comparison is made with the previous CT dated 07/20/2018 TECHNIQUE: Multiplanar, multisequence MR images of the brain were obtained without intravenous contrast enhancement. FINDINGS: HEMORRHAGE: None DWI: No evidence of an acute or early subacute infarction. BRAIN PARENCHYMA: No mass effect or edema. No atrophy or chronic microvascular ischemic changes. VENTRICLES: Unremarkable. No hydrocephalus. CRANIUM: Unremarkable. ORBITS: Grossly unremarkable. PARANASAL SINUSES/MASTOIDS: Mucosal thickening of the ethmoid sinuses is noted. Air-fluid level in the left maxillary and in sphenoid sinuses noted. Small amount of fluid noted in the mastoid air cells. VASCULAR SYSTEM: Skull base flow voids intact. OTHER FINDINGS: None. IMPRESSION: No evidence of acute infarct or intracranial hemorrhage Suboptimal study degraded by patient's motion.
--- NOTE | 2018-07-21 20:06 | CON ---
DATE OF CONSULTATION: 07/21/2018 The patient is seen in the ICU today in Room 128, Bed 3. CHIEF COMPLAINT: Respiratory failure, change in mental status for unknown days of duration. HISTORY OF PRESENT ILLNESS: This is a 57-year-old female with past medical history of asthma and DVT, on Coumadin, who is found unresponsive, was hypotensive, hypothermic, and the patient intubated on a ventilator. Infectious Disease consultation requested. The patient is on admission, was hypothermic. PAST MEDICAL HISTORY: Significant for DVT and asthma. PAST SURGICAL HISTORY: Unclear. MEDICATIONS AT HOME: Reveal the patient to be on Coumadin, gabapentin and Pepcid. ALLERGIES: THE PATIENT HAS NO KNOWN ALLERGIES. REVIEW OF SYSTEMS: It is unclear the number of days that she was unresponsive on the floor. Emergency room chart states that the patient has a history of asthma and DVT, on Coumadin, and altered mental status. The patient's sister had not heard from the patient in the past 4 days and lying unresponsive on the floor. At this time, she is intubated on a ventilator. She appears to be awake; however, she is in critical condition. No further information is available. She did have hypothermia and hypotension on admission. A 14-point review of systems reviewed with nursing staff. PHYSICAL EXAMINATION: GENERAL: The patient is in bed, intubated on a ventilator. VITAL SIGNS: Temperature is 98 at this time and on admission temperature was 86.2. Blood pressure is 100/50 and the patient is on pressors. On admission, this patient's blood pressure was 58/24. Respiratory rate, the patient is on a ventilator. The patient's respiratory rate on admission was 31. Heart rate is 110. HEENT: Reveals the ET tube to be placed. NECK: Supple. LUNGS: Decreased breath sounds. HEART: Normal S1, S2. ABDOMEN: Mild tenderness. No rebound, no guarding, no masses. LABORATORY EXAMINATION: Reveals a white count of 17,000, hemoglobin of 16, platelets of 153. BUN of 27 and creatinine is 1.2. The patient did have a creatinine of 2 on admission. Prior to that, in 08/2017, the creatinine was 0.6. The patient does have normal LFTs, however does have a lipase elevation of 5000. Urinalysis is reviewed. The patient had a CAT scan of the chest, which was negative. CAT scan of the abdomen shows pericholecystic fluid and pancreatitis. Chest x-ray is reported to be negative. ASSESSMENT/PLAN: This is a 57-year-old female with asthma, deep vein thrombosis, on Coumadin, admitted with septic shock secondary to GI. Gallbladder is probable source with pancreatitis and with acute kidney injury. We will treat the patient with Zosyn and recommend GI and surgical evaluation because of her age. We will order an HIV test. Blood cultures, nasal MRSA screen, and urine cultures are ordered. We will follow closely with you. Ashkan Bah MD
--- NOTE | 2018-07-21 22:19 | HP ---
DATE OF EXAM: 07/21/2018 CRITICAL CARE AND HISTORY AND PHYSICAL ADMISSION HISTORY OF PRESENT ILLNESS: This 57-year-old female was examined in the ICU bed #3 at the [facility] on the morning of June. The patient was brought to the [facility] last evening or yesterday after family had been unable to reach her for the past several days. She was brought in by paramedics when the family found the patient lying on the floor unresponsive in her home with a left-sided gaze. The patient was noted to have altered mental status. In the emergency room, she was noted to be hypothermic. She underwent diagnostic workup including chest x-ray, head CT, chest and abdominal pelvic CT that were remarkable for no evidence of obvious stroke or pneumonia, but CT of abdomen showed a gallbladder filled with dense sludge with pericholecystic fluid and possible cholecystitis. Also, her pancreas was noted to be swollen as compared to previous CT results with some edema around her pancreatic head suspicious for pancreatitis. The patient was also noted to have an elevated lipase when in the emergency room with a level of 5554 and a drug screen negative for alcohol, but positive for cannabinoids. In the emergency room, the patient was hypothermic with temperature readings of 86 Fahrenheit and was placed on a warming blankets and warmed IV fluids. At present, she is intubated and has a left gaze preference. She is unable to give any history. REVIEW OF SYSTEMS: There were no reports of fever, unclear about head trauma. No reported visual changes prior to these events. PHYSICAL EXAMINATION: VITAL SIGNS: At present is showing the patient in a sinus rhythm with a temperature of 97.5, respirations 16, pulse 90, and blood pressure 111/47. Her pulse ox was 94%. HEENT: Normocephalic, atraumatic. Eyes: No icterus. NECK: Supple. HEART: S1, S2. LUNGS: With occasional rhonchi. ABDOMEN: Soft. EXTREMITIES: No edema. SKIN: Without rash. NEUROLOGICAL: Could not be assessed. VASCULAR: Legs are warm to touch. PSYCHOLOGICAL: Cannot be assessed. LABORATORY DATA: Current labs show sodium of 145, K 3.1, chloride 118, bicarb 12. BUN 25, creatinine 1.5, random blood sugar 139. Calcium 6.9, phosphorous 4.1, magnesium 2.0, bilirubin 0.4, AST 35, ALT 32, alk phos 63, albumin 2.3. Lipase 5554. Cholesterol 100, triglycerides 92, LDL 43, HDL 59. White count 15,200, hemoglobin 11.5, hematocrit 33.8, platelets 172,000. Initial PT/INR 0.99. PTT 34.6. Urinalysis showed moderate bacteria, 2 to 5 granular casts. EKG was reviewed. It showed normal sinus rhythm, nonspecific ST-T wave changes. Chest x-ray was reviewed which showed no appreciable cardiopulmonary disease and no evidence of pleural effusion or pneumonic infiltrate. An abdominal ultrasound was reviewed. It showed gallbladder that was mildly distended. No report of Tsai sign. No evidence of common bile duct or prominent intrahepatic bile duct dilatation. The right kidney showed no calculus mass or hydronephrosis and left kidney was obscured by overlying bowel gas. IMPRESSION: This is a 57-year-old female status post hypothermia with probable pancreatitis, altered mental status, rule out seizure, rule out stroke, sepsis, multiorgan system failure with encephalopathy, respiratory failure and acute renal failure, rule out rhabdomyolysis. The plan as discussed with small animal caretaker will be to cover this patient for full sepsis protocol with IV antibiotics. The patient will continue on stress steroids, IV bicarbonate drip. The patient will require ventilatory support and will be followed by Surgery, GI, Infectious Disease and Neurology. At present, medications will include IV Keppra, IV Levophed, IV Protonix, IV bicarbonate, Solu-Cortef, IV Zosyn. She was ordered to have serial labs including comprehensive metabolic panel, magnesium level, phosphorous level, HIV and CBC. Blood, urine, and Clostridium difficile toxins are pending. A MRSA screen has been sent. She is ordered to have a followup chest x-ray and MRI to rule out an ischemic stroke and she will continue on mechanical ventilatory support and remains n.p.o. Based on her clinical progress, additional diagnostic workup will be entertained. All of the above was reviewed with nursing and Dr. Bynum. Critical care followup will be maintained. Kena Lazo MD ARIANNA
[2018-07-22] MEDS: NOREPINEPHRINE BIT/0.9 % NACL 4 MG/250 ML BAG IV PRN ×2 (05:33→21:04)
[2018-07-22] MEDS: Sodium Bicarbonate 8.4% 150 MEQ in Dextrose 5% In Water 1,000 ML IV SCH (05:34)
[2018-07-22 06:07] LABS: ARTERIAL BLOOD GAS HCO3 25.9 mmol/L (21-28); ARTERIAL BLOOD GAS O2 SAT 96.5 % (95-98); ARTERIAL BLOOD GAS PCO2 34 mm/Hg (35-45); ARTERIAL BLOOD GAS PH 7.49 (7.35-7.45); ARTERIAL BLOOD GAS TCO2 26.9 mmol.L (22-28)
[2018-07-22 06:24] LABS: HEMOGLOBIN 9.8 g/dL (12.0-16.0); MEAN CELL VOLUME 94.5 fl (80.0-105.0); MEAN CORPUSCULAR HEMOGLOBIN 31.8 pg (25.0-35.0); MEAN CORPUSCULAR HGB CONC 33.7 g/dl (31.0-37.0); MEAN PLATELET VOLUME 12.1 fl (7.0-11.0); RBC 3.08 10^6/uL (3.5-6.1); RED CELL DISTRIBUTION WIDTH 16.5 % (11.5-14.5); WHITE BLOOD COUNT 12.3 10^3/uL (4.5-11.0)
--- NOTE | 2018-07-22 07:08 | CP.PCM.PN ---
<Cesia Fairchild - Last Filed: 07/22/18 07:05> Subjective - Date & Time of Evaluation Date of Evaluation: 07/22/18 Time of Evaluation: 07:05 - Subjective Subjective: Gastroenterology Fellow/PGY6 Progress Note Patient awake and tracking with eyes on ventilator support. Intact handgrip on command. A 12-point review of systems unable to be completed on ventilator support. Objective - Vital Signs/Intake and Output Vital Signs (last 24 hours): Temp Pulse Resp BP Pulse Ox 97.2 F L 70 27 H 100/65 96 07/21/18 16:40 07/21/18 22:00 07/21/18 17:40 07/21/18 21:49 07/21/18 19:59 Intake and Output: 07/22/18 07/22/18 06:59 18:59 Intake Total 250 Balance 250 - Medications Medications: Current Medications Aspirin (Aspirin) 325 mg PO DAILY [facility] Last Admin: 07/21/18 13:24 Dose: 325 mg Hydrocortisone Sodium Succinate (Solu-Cortef) 50 mg IVP Q6H [facility] Last Admin: 07/22/18 05:35 Dose: 50 mg NOREPINEPHRINE BIT/0.9 % NACL (Levophed 4 Mg/ 250 Ml Ns Premixed) 4 mg in 250 mls @ 15 mls/hr IV .[id number] PRN; Protocol PRN Reason: TITRATE PER MD ORDER Last Admin: 07/22/18 05:33 Dose: 12 mcg/min, 45 mls/hr Levetiracetam (Keppra 500mg Ivpb) 500 mg in 100 mls @ 400 mls/hr IV Q12 [facility] Last Admin: 07/21/18 21:44 Dose: 400 mls/hr Midazolam 100 mg/100ml in NS (Midazolam 100 Mg/100ml In Ns) 100 mg in 100 mls @ 1 mls/hr IV .Q24H PRN; Protocol PRN Reason: Sedation Heparin Sodium/Sodium Chloride (Heparin 28999 Units/250ml 1/2 Normal Saline) 25,000 units in 250 mls @ 7.348 mls/hr IV .Q24H PRN; Protocol PRN Reason: ADJUST RATE PER PROTOCOL Last Titration: 07/21/18 12:30 Dose: 12 units/kg/hr, 4.899 mls/hr Vasopressin 20 units/ Dextrose 101 mls @ 9.09 mls/hr IV .Q11H7M [facility]; Protocol Last Admin: 07/21/18 21:49 Dose: 9.09 mls/hr Piperacillin Sod/Tazobactam Sod (Zosyn 3.375 In Ns 100ml) 100 mls @ 25 mls/hr IVPB Q12 [facility]; Protocol Stop: 07/30/18 12:21 Last Admin: 07/21/18 13:20 Dose: 25 mls/hr Sodium Bicarbonate 150 meq/ (Dextrose) 1,150 mls @ 150 mls/hr IV .Q7H40M [facility] Last Admin: 07/22/18 05:34 Dose: 150 mls/hr Fentanyl Citrate (Fentanyl Citrate/Sodium Chloride 1 Mg/100 Ml) 1,000 mcg in 100 mls @ 5 mls/hr IV .Q20H PRN; Protocol PRN Reason: TITRATE PER MD ORDER Last Admin: 07/21/18 13:17 Dose: 50 mcg/hr, 5 mls/hr Pantoprazole Sodium (Protonix Inj) 40 mg IVP Q12 [facility] Last Admin: 07/21/18 21:45 Dose: 40 mg - Labs Labs: 07/22/18 05:30 07/21/18 06:00 PT 11.3 SECONDS (9.4-12.5) 07/20/18 16:01 INR 0.99 07/20/18 16:01 APTT 94.7 Seconds (25.1-36.5) H 07/21/18 17:07 - Constitutional Appears: Other - Head Exam Head Exam: NORMOCEPHALIC - Eye Exam Eye Exam: EOMI, PERRL. absent: Scleral icterus Pupil Exam: PERRL. absent: Miosis, Mydriatic - ENT Exam ENT Exam: Mucous Membranes Dry, Normal Oropharynx Additional comments: ETT and OGT in place - Respiratory Exam Respiratory Exam: Clear to Ausculation Bilateral. absent: Rales, Rhonchi, Wheezes - Cardiovascular Exam Cardiovascular Exam: RRR, +S1, +S2. absent: Gallop, Rubs - GI/Abdominal Exam GI & Abdominal Exam: Soft, Tenderness, Hypoactive Bowel Sounds. absent: Distended, Firm, Guarding, Rigid, Organomegaly, Rebound Additional comments: diffuse tenderness to palpation - Extremities Exam Extremities Exam: Normal Inspection. 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 Active treatment of ventilator dependent respiratory failure in setting of encephalopathy and septic shock with multi-organ damage requiring airway protection. CT C/A/P and U/S showed no gallstones/sludge concerning for cholecystitis or biliary dilatation. Plan: -DDx-pancreatitis, colitis-ischemic, infectious, or reactive to pancreatitis -recommend continuation of additional Lactated ringer's fluid resuscitation for concern of pancreatitis -BUN and Hct improving, follow up AM labs -H/H trend hemodilutional given large fluid resuscitation in setting of sepsis -normal triglycerides, ETOH<10, salicylates< 1, acetaminophen<10 -send infectious stool work up if specimen available -blood culture negative to date -on Zosyn -PPI IV BID -on vasopressor support -will closely monitor clinical course <Cirilo Do - Last Filed: 07/22/18 10:33> Objective - Vital Signs/Intake and Output Vital Signs (last 24 hours): Temp Pulse Resp BP Pulse Ox 97.2 F L 70 17 100/65 96 07/21/18 16:40 07/21/18 22:00 07/22/18 07:34 07/21/18 21:49 07/22/18 07:34 Intake and Output: 07/22/18 07/22/18 06:59 18:59 Intake Total 250 120 Balance 250 120 - Medications Medications: Current Medications Aspirin (Aspirin) 325 mg PO DAILY [facility] Last Admin: 07/22/18 10:21 Dose: 325 mg Hydrocortisone Sodium Succinate (Solu-Cortef) 50 mg IVP Q6H [facility] Last Admin: 07/22/18 10:19 Dose: 50 mg NOREPINEPHRINE BIT/0.9 % NACL (Levophed 4 Mg/ 250 Ml Ns Premixed) 4 mg in 250 mls @ 15 mls/hr IV .[id number] PRN; Protocol PRN Reason: TITRATE PER MD ORDER Last Titration: 07/22/18 07:43 Dose: 4 mcg/min, 15 mls/hr Levetiracetam (Keppra 500mg Ivpb) 500 mg in 100 mls @ 400 mls/hr IV Q12 [facility] Last Admin: 07/22/18 10:23 Dose: 400 mls/hr Midazolam 100 mg/100ml in NS (Midazolam 100 Mg/100ml In Ns) 100 mg in 100 mls @ 1 mls/hr IV .Q24H PRN; Protocol PRN Reason: Sedation Last Admin: 07/22/18 10:21 Dose: 1 mg/hr, 1 mls/hr Heparin Sodium/Sodium Chloride (Heparin 73724 Units/250ml 1/2 Normal Saline) 25,000 units in 250 mls @ 7.348 mls/hr IV .Q24H PRN; Protocol PRN Reason: ADJUST RATE PER PROTOCOL Last Titration: 07/21/18 12:30 Dose: 12 units/kg/hr, 4.899 mls/hr Vasopressin 20 units/ Dextrose 101 mls @ 9.09 mls/hr IV .Q11H7M [facility]; Protocol Last Admin: 07/21/18 21:49 Dose: 9.09 mls/hr Sodium Bicarbonate 150 meq/ (Dextrose) 1,150 mls @ 150 mls/hr IV .Q7H40M [facility] Last Admin: 07/22/18 05:34 Dose: 150 mls/hr Fentanyl Citrate (Fentanyl Citrate/Sodium Chloride 1 Mg/100 Ml) 1,000 mcg in 100 mls @ 5 mls/hr IV .Q20H PRN; Protocol PRN Reason: TITRATE PER MD ORDER Last Admin: 07/21/18 13:17 Dose: 50 mcg/hr, 5 mls/hr Piperacillin Sod/Tazobactam Sod (Zosyn 3.375 In Ns 100ml) 100 mls @ 25 mls/hr IVPB Q6 [facility]; Protocol Stop: 07/31/18 12:01 Pantoprazole Sodium (Protonix Inj) 40 mg IVP Q12 [facility] Last Admin: 07/22/18 10:20 Dose: 40 mg - Labs Labs: 07/22/18 05:30 07/22/18 05:30 PT 11.3 SECONDS (9.4-12.5) 07/20/18 16:01 INR 0.99 07/20/18 16:01 APTT 94.7 Seconds (25.1-36.5) H 07/21/18 17:07 Attending/Attestation - Attestation I have personally seen and examined this patient.: Yes I have fully participated in the care of the patient.: Yes I have reviewed all pertinent clinical information, including history, physical exam and plan: Yes Notes (Text): 07/22/18 10:30 I have seen and examined patient with GI fellow. No acute events overnight, she remains intubated in intensive care unit on vasopressor support. She is awake and responds with head motions appropriately to simple questions. No reported vomiting, fever/chills, bowel movements. DVT / PE Respiratory failure s/p intubation Sepsis Colitis, pancreatitis - NPO - Continue with antibiotic therapy and monitor blood cultures - Continue with IVF hydration therapy - Continue with PPI therapy - Vasopressor and ventilator management as per critical care teams - Following extubation, may initiate trial of clear liquids if patient able to tolerate. Will continue to monitor patient clinical course.
--- NOTE | 2018-07-22 07:29 | CP.PCM.PN ---
Subjective - Date & Time of Evaluation Date of Evaluation: 07/22/18 Time of Evaluation: 07:26 - Subjective Subjective: Surgery Progress Note - Dr. Alfred Patient seen and examined at bedside this morning. Patient still on ventilator support and unable to complete ROS. Per ICU team, no acute events overnight. Objective - Vital Signs/Intake and Output Vital Signs (last 24 hours): Temp Pulse Resp BP Pulse Ox 97.2 F L 70 27 H 100/65 96 07/21/18 16:40 07/21/18 22:00 07/21/18 17:40 07/21/18 21:49 07/21/18 19:59 Intake and Output: 07/22/18 07/22/18 06:59 18:59 Intake Total 250 Balance 250 - Medications Medications: Current Medications Aspirin (Aspirin) 325 mg PO DAILY [facility] Last Admin: 07/21/18 13:24 Dose: 325 mg Hydrocortisone Sodium Succinate (Solu-Cortef) 50 mg IVP Q6H [facility] Last Admin: 07/22/18 05:35 Dose: 50 mg NOREPINEPHRINE BIT/0.9 % NACL (Levophed 4 Mg/ 250 Ml Ns Premixed) 4 mg in 250 mls @ 15 mls/hr IV .Q21B12K PRN; Protocol PRN Reason: TITRATE PER MD ORDER Last Admin: 07/22/18 05:33 Dose: 12 mcg/min, 45 mls/hr Levetiracetam (Keppra 500mg Ivpb) 500 mg in 100 mls @ 400 mls/hr IV Q12 [facility] Last Admin: 07/21/18 21:44 Dose: 400 mls/hr Midazolam 100 mg/100ml in NS (Midazolam 100 Mg/100ml In Ns) 100 mg in 100 mls @ 1 mls/hr IV .Q24H PRN; Protocol PRN Reason: Sedation Heparin Sodium/Sodium Chloride (Heparin 31516 Units/250ml 1/2 Normal Saline) 25,000 units in 250 mls @ 7.348 mls/hr IV .Q24H PRN; Protocol PRN Reason: ADJUST RATE PER PROTOCOL Last Titration: 07/21/18 12:30 Dose: 12 units/kg/hr, 4.899 mls/hr Vasopressin 20 units/ Dextrose 101 mls @ 9.09 mls/hr IV .Q11H7M [facility]; Protocol Last Admin: 07/21/18 21:49 Dose: 9.09 mls/hr Piperacillin Sod/Tazobactam Sod (Zosyn 3.375 In Ns 100ml) 100 mls @ 25 mls/hr IVPB Q12 [facility]; Protocol Stop: 07/30/18 12:21 Last Admin: 07/21/18 13:20 Dose: 25 mls/hr Sodium Bicarbonate 150 meq/ (Dextrose) 1,150 mls @ 150 mls/hr IV .Q7H40M [facility] Last Admin: 07/22/18 05:34 Dose: 150 mls/hr Fentanyl Citrate (Fentanyl Citrate/Sodium Chloride 1 Mg/100 Ml) 1,000 mcg in 100 mls @ 5 mls/hr IV .Q20H PRN; Protocol PRN Reason: TITRATE PER MD ORDER Last Admin: 07/21/18 13:17 Dose: 50 mcg/hr, 5 mls/hr Pantoprazole Sodium (Protonix Inj) 40 mg IVP Q12 [facility] Last Admin: 07/21/18 21:45 Dose: 40 mg - Labs Labs: 07/22/18 05:30 07/21/18 06:00 PT 11.3 SECONDS (9.4-12.5) 07/20/18 16:01 INR 0.99 07/20/18 16:01 APTT 94.7 Seconds (25.1-36.5) H 07/21/18 17:07 - Head Exam Head Exam: NORMAL INSPECTION - Eye Exam Eye Exam: EOMI, Normal appearance - ENT Exam Additional comments: poor dentition, on ventilator - Neck Exam Neck Exam: Normal Inspection - Respiratory Exam Respiratory Exam: absent: Accessory Muscle Use, Chest Wall Tenderness, Decreased Breath Sounds - Cardiovascular Exam Cardiovascular Exam: REGULAR RHYTHM - GI/Abdominal Exam GI & Abdominal Exam: Soft, Normal Bowel Sounds. absent: Bruit, Distended, Diminished Bowel Sounds, Hypoactive Bowel Sounds, Mass, Pulsatile Mass, Rebound - Extremities Exam Extremities Exam: Normal Capillary Refill Additional comments: strong peripheral pulses - Neurological Exam Neurological Exam: Awake Additional comments: Patient awake but unable to answer yes/no questions - Skin Skin Exam: Dry, Intact, Normal Color, Warm Assessment and Plan - Assessment and Plan (Free Text) Assessment: 57 y/o female with pancreatitis -07/21 AM lipase elevated at 5554, 07/21 abdominal US: distended gallbladder with upper limit normal mural thickness, 07/20 CTAP: mild diffuse pancreas swelling suspicious for pancreatitis, dense sludge gallbladder, possible cholecystitis -no gallstones appreciated on imaging, concern for acute cholecystitis is low -CK wnl -recommend HIDA to view any possibility of gallstones causing the pancreatitis -follow GI recommendations. GI already on case. -no surgical intervention at this time Surgery team signing off. Thank you for allowing us to collaborate with you on this case. Danielle Bhandari PGY1
[2018-07-22 08:17] LABS: ALBUMIN 2.2 g/dL (3.0-4.8); AST/SGOT 46 U/L (14-36); BLOOD UREA NITROGEN 27 mg/dL (7-21); CALCIUM 6.6 mg/dL (8.4-10.5); GFR NON-AFRICAN AMERICAN 51
[2018-07-22 09:05] LABS: ALT/SGPT 33 U/L (7-56)
--- NOTE | 2018-07-22 09:19 | RAD ---
Date of service: 07/22/2018 HISTORY: intubated; [facility] ventilation COMPARISON: 07/21/2018 FINDINGS: LUNGS: There is new volume loss and consolidation in the left lower lobe consistent with lobar atelectasis. There is mediastinal shift to the left. The diaphragmatic border is now obscured. PLEURA: No significant pleural effusion identified, no pneumothorax apparent. CARDIOVASCULAR: No aortic atherosclerotic calcification present. Normal cardiac size. No pulmonary vascular congestion. OSSEOUS STRUCTURES: No significant abnormalities. VISUALIZED UPPER ABDOMEN: Normal. OTHER FINDINGS: Central lines and tubes are unchanged IMPRESSION: There is new volume loss and consolidation in the left lower lobe consistent with lobar atelectasis. There is mediastinal shift to the left. The diaphragmatic border is now obscured.
[2018-07-22] MEDS: levETIRAcetam 500mg IVPB 500 MG/100 ML BAG IV SCH ×2 (10:23→21:05)
[2018-07-22] MEDS ORDERED: Propofol 10 mg/ml 1,000 MG/100 ML VIAL IV PRN (10:46)
[2018-07-22] MEDS ORDERED: Magnesium Sulfate 1 gm in D5W 1 GM/100 ML BAG IVPB ONE (10:49)
[2018-07-22] MEDS: Piperacillin/Tazobact 3.375 gm 100 ML IVPB SCH ×2 (11:05→18:24)
[2018-07-22 11:19] LABS: VENOUS BLOOD GAS BASE EXCESS 5.2 mmol/L (0.0-2.0); VENOUS BLOOD GAS PO2 39 mm/Hg (30-55); VENOUS BLOOD PH 7.45 (7.32-7.43)
[2018-07-22] MEDS: Lactated Ringer's 1,000 ML IV SCH (11:22)
--- NOTE | 2018-07-22 11:47 | CP.CCUPN ---
<Juan Carlos Qureshi - Last Filed: 07/22/18 12:45> CCU Subjective - Physician Review Subjective (Free Text): Juan Carlos Qureshi, PGY1 ICU Progress Note for Dr. Beckford Patient was seen and examined at bedside this morning. Patient initially given weaning trial this morning (PS PEEP 8, FiO2 60%) however, she starting desaturating in the 80s. Placed back on PRVC. Patient is alert, awake, following commands. She appears to be anxious. ET tube is in place. R-IJ in place. Vazquez is in place and draining. OG tube is also in place but she is not yet on feeds. No fevers overnight. No adverse overnight events. No episodes of bleeding. CCU Objective - Vital Signs / Intake & Output Intake and Output (Last 8hrs): Intake & Output 07/21/18 07/22/18 07/22/18 22:59 06:59 14:59 Intake Total 4390 120 Output Total 450 Balance 3940 120 Intake: IV 4330 120 Right Internal Jugular 4080 Oral 60 Output: Urine 450 2-way Urethral 450 Stool 0 - Physical Exam Head: Positive for: Other (Bruising on the right scalp) Pupils: Positive for: Pinpoint Mouth: Positive for: Dry, Other (ET tube and OG tube in place. ) Nose (External): Positive for: Other (Dried up blood from nares.) Neck: Positive for: Other (R-IJ in place) Respiratory/Chest: Positive for: Clear to Auscultation. Negative for: Respiratory Distress, Wheezes, Rales, Retracting, Rhonchi Cardiovascular: Positive for: Normal S1, S2, Peripheal Pulses Present Abdomen: Positive for: Tenderness (Diffuse tenderness to palpation). Negative for: Distention, Peritoneal Signs, Guarding, Mass/Organomegaly Upper Extremity: Positive for: NORMAL PULSES, Other (Decreased weakness of the upper extremities). Negative for: Cyanosis, Edema Lower Extremity: Positive for: NORMAL PULSES, Other (Bilateral lower extremity weakness ). Negative for: Edema, CALF TENDERNESS Skin: Positive for: Warm, Dry, Other (Bruising on the scalp, right thoracic region, sacrum, lateral maleoli, and bilateral knees (w/ swelling)) Psychiatric: Positive for: Alert. Negative for: Oriented x 3 (intubated) - Medications Active Medications: Active Medications Generic Name Dose Route Start Last Admin Trade Name Freq PRN Reason Stop Dose Admin Aspirin 325 mg 07/21/18 10:00 07/22/18 10:21 Aspirin PO 325 mg DAILY MELY Administration Hydrocortisone Sodium Succinate 50 mg 07/21/18 09:45 07/22/18 10:19 Solu-Cortef IVP 50 mg Q6H MELY Administration NOREPINEPHRINE BIT/0.9 % NACL 4 mg in 250 mls @ 15 mls/hr 07/20/18 15:26 07/22/18 07:43 Levophed 4 Mg/ 250 Ml Ns Premixed IV 4 mcg/min .[id number] PRN 15 mls/hr TITRATE PER MD ORDER Titration Protocol 4 MCG/MIN Levetiracetam 500 mg in 100 mls @ 400 mls/hr 07/20/18 22:00 07/22/18 10:23 Keppra 500mg Ivpb IV 400 mls/hr Q12 MELY Administration Heparin Sodium/Sodium Chloride 25,000 units in 250 mls @ 7.348 mls/hr 07/20/18 17:14 07/21/18 12:30 Heparin 75129 Units/250ml 1/2 Normal Saline IV 12 units/kg/hr .Q24H PRN 4.899 mls/hr ADJUST RATE PER PROTOCOL Titration Protocol 18 UNITS/KG/HR Fentanyl Citrate 1,000 mcg in 100 mls @ 5 mls/hr 07/21/18 13:01 07/21/18 13:17 Fentanyl Citrate/Sodium Chloride 1 Mg/100 Ml IV 50 mcg/hr .Q20H PRN 5 mls/hr TITRATE PER MD ORDER Administration Protocol 50 MCG/HR Piperacillin Sod/Tazobactam Sod 100 mls @ 25 mls/hr 07/22/18 11:00 07/22/18 11:05 Zosyn 3.375 In Ns 100ml IVPB 25 mls/hr Q8H MELY Administration Protocol Propofol 1,000 mg in 100 mls @ 1.225 mls/hr 07/22/18 10:46 Diprivan IV .Q24H PRN TITRATE PER MD ORDER Protocol 5 MCG/KG/MIN Magnesium Sulfate/Dextrose 1 gm in 100 mls @ 100 mls/hr 07/22/18 10:49 07/22/18 11:18 Magnesium Sulfate 1 Gm/100 Ml D5w IVPB 07/22/18 11:48 100 mls/hr ONCE ONE Administration Lactated Ringer's 1,000 mls @ 75 mls/hr 07/22/18 11:00 07/22/18 11:22 Lactated Ringer's IV 75 mls/hr .[id number] MELY Administration Pantoprazole Sodium 40 mg 07/20/18 22:00 07/22/18 10:20 Protonix Inj IVP 40 mg Q12 MELY Administration - Patient Studies Lab Studies: Microbiology Studies 07/20/18 16:01 Blood Culture - Preliminary Blood-Venous NO GROWTH AFTER 24 HOURS 07/20/18 12:08 Blood Culture - Preliminary Blood-Venous NO GROWTH AFTER 24 HOURS Lab Studies 07/22/18 07/22/18 07/22/18 Range/Units 11:00 08:57 05:50 WBC (4.5-11.0) 10^3/uL RBC (3.5-6.1) 10^6/uL Hgb (12.0-16.0) g/dL Hct (36.0-48.0) % MCV (80.0-105.0) fl MCH (25.0-35.0) pg MCHC (31.0-37.0) g/dl RDW (11.5-14.5) % Plt Count (120.0-450.0) 10^3/uL MPV (7.0-11.0) fl APTT (25.1-36.5) Seconds pCO2 34 L (35-45) mm/Hg pO2 39 63.0 L (80-100) mm/Hg HCO3 25.9 (21-28) mmol/L ABG pH 7.49 H (7.35-7.45) ABG Total CO2 26.9 (22-28) mmol.L ABG O2 Saturation 96.5 (95-98) % ABG O2 Content (15-23) ML/dl ABG Base Excess 2.9 (-2.0-3.0) mmol/L ABG Hemoglobin (11.7-17.4) g/dL ABG Carboxyhemoglobin (0.5-1.5) % POC ABG HHb (Measured) (0-5) % ABG Methemoglobin (0.0-3.0) % ABG O2 Capacity (16-24) mL/dl ABG Potassium 3.4 L (3.6-5.2) mmol/L VBG pH 7.45 H (7.32-7.43) VBG pCO2 43.0 (40-60) VBG HCO3 29.9 H (21-28) mmol/l VBG Total CO2 31.2 H (22-28) mmol.L VBG O2 Sat (Calc) 80.0 H (40-65) % VBG Base Excess 5.2 H (0.0-2.0) mmol/L VBG Potassium 3.4 L (3.6-5.2) mmol/L Hgb O2 Saturation (95.0-98.0) % Glucose 124 H 196 H (65-105) mg/dl Lactate 2.3 H 2.0 (0.7-2.1) mmol/L Mechanical Rate 16 FiO2 21.0 60.0 % Tidal Volume 400 PEEP 5 Sodium 144.0 143.0 (132-148) mmol/L Potassium (3.6-5.0) mmol/L Chloride 110.0 H 111.0 H (98-107) mmol/L Carbon Dioxide (21-33) mmol/L Anion Gap (10-20) BUN (7-21) mg/dL Creatinine (0.7-1.2) mg/dl Est GFR ( Amer) Est GFR (Non-Af Amer) POC Glucose (mg/dL) 159 H (65-110) mg/dL Random Glucose (70-110) mg/dL Calcium (8.4-10.5) mg/dL Phosphorus (2.5-4.5) mg/dL Magnesium (1.7-2.2) mg/dL Total Bilirubin (0.2-1.3) mg/dL AST (14-36) U/L ALT (7-56) U/L Alkaline Phosphatase (38-126) U/L Lactate Dehydrogenase (333-699) U/L Total Protein (5.8-8.3) g/dL Albumin (3.0-4.8) g/dL Globulin gm/dL Albumin/Globulin Ratio (1.1-1.8) Arterial Blood Potassium 3.4 L (3.6-5.2) mmol/L Venous Blood Potassium 3.4 L (3.6-5.2) mmol/L Salicylates (2.0-20.0) mg/dL Acetaminophen (10.0-20.0) ug/ml HIV 1&2 Ag/Ab, 4th Gen (Nonreactive) 07/22/18 07/22/18 07/22/18 Range/Units 05:30 05:30 05:11 WBC 12.3 H (4.5-11.0) 10^3/uL RBC 3.08 L (3.5-6.1) 10^6/uL Hgb 9.8 L (12.0-16.0) g/dL Hct 29.1 L (36.0-48.0) % MCV 94.5 (80.0-105.0) fl MCH 31.8 (25.0-35.0) pg MCHC 33.7 (31.0-37.0) g/dl RDW 16.5 H (11.5-14.5) % Plt Count 115 L (120.0-450.0) 10^3/uL MPV 12.1 H (7.0-11.0) fl APTT (25.1-36.5) Seconds pCO2 (35-45) mm/Hg pO2 (80-100) mm/Hg HCO3 (21-28) mmol/L ABG pH (7.35-7.45) ABG Total CO2 (22-28) mmol.L ABG O2 Saturation (95-98) % ABG O2 Content (15-23) ML/dl ABG Base Excess (-2.0-3.0) mmol/L ABG Hemoglobin (11.7-17.4) g/dL ABG Carboxyhemoglobin (0.5-1.5) % POC ABG HHb (Measured) (0-5) % ABG Methemoglobin (0.0-3.0) % ABG O2 Capacity (16-24) mL/dl ABG Potassium (3.6-5.2) mmol/L VBG pH (7.32-7.43) VBG pCO2 (40-60) VBG HCO3 (21-28) mmol/l VBG Total CO2 (22-28) mmol.L VBG O2 Sat (Calc) (40-65) % VBG Base Excess (0.0-2.0) mmol/L VBG Potassium (3.6-5.2) mmol/L Hgb O2 Saturation (95.0-98.0) % Glucose (65-105) mg/dl Lactate (0.7-2.1) mmol/L Mechanical Rate FiO2 % Tidal Volume PEEP Sodium 143 (132-148) mmol/L Potassium 3.8 (3.6-5.0) mmol/L Chloride 113 H (98-107) mmol/L Carbon Dioxide 27 (21-33) mmol/L Anion Gap 7 L (10-20) BUN 27 H (7-21) mg/dL Creatinine 1.1 (0.7-1.2) mg/dl Est GFR ( Amer) > 60 Est GFR (Non-Af Amer) 51 POC Glucose (mg/dL) 191 H (65-110) mg/dL Random Glucose 185 H (70-110) mg/dL Calcium 6.6 L* (8.4-10.5) mg/dL Phosphorus 2.3 L (2.5-4.5) mg/dL Magnesium 1.7 (1.7-2.2) mg/dL Total Bilirubin 0.4 (0.2-1.3) mg/dL AST 46 H D (14-36) U/L ALT 33 (7-56) U/L Alkaline Phosphatase 57 (38-126) U/L Lactate Dehydrogenase (333-699) U/L Total Protein 4.5 L (5.8-8.3) g/dL Albumin 2.2 L (3.0-4.8) g/dL Globulin 2.2 gm/dL Albumin/Globulin Ratio 1.0 L (1.1-1.8) Arterial Blood Potassium (3.6-5.2) mmol/L Venous Blood Potassium (3.6-5.2) mmol/L Salicylates (2.0-20.0) mg/dL Acetaminophen (10.0-20.0) ug/ml HIV 1&2 Ag/Ab, 4th Gen (Nonreactive) 07/22/18 07/21/18 07/21/18 Range/Units 01:05 21:00 17:23 WBC (4.5-11.0) 10^3/uL RBC (3.5-6.1) 10^6/uL Hgb (12.0-16.0) g/dL Hct (36.0-48.0) % MCV (80.0-105.0) fl MCH (25.0-35.0) pg MCHC (31.0-37.0) g/dl RDW (11.5-14.5) % Plt Count (120.0-450.0) 10^3/uL MPV (7.0-11.0) fl APTT (25.1-36.5) Seconds pCO2 (35-45) mm/Hg pO2 (80-100) mm/Hg HCO3 (21-28) mmol/L ABG pH (7.35-7.45) ABG Total CO2 (22-28) mmol.L ABG O2 Saturation (95-98) % ABG O2 Content (15-23) ML/dl ABG Base Excess (-2.0-3.0) mmol/L ABG Hemoglobin (11.7-17.4) g/dL ABG Carboxyhemoglobin (0.5-1.5) % POC ABG HHb (Measured) (0-5) % ABG Methemoglobin (0.0-3.0) % ABG O2 Capacity (16-24) mL/dl ABG Potassium (3.6-5.2) mmol/L VBG pH (7.32-7.43) VBG pCO2 (40-60) VBG HCO3 (21-28) mmol/l VBG Total CO2 (22-28) mmol.L VBG O2 Sat (Calc) (40-65) % VBG Base Excess (0.0-2.0) mmol/L VBG Potassium (3.6-5.2) mmol/L Hgb O2 Saturation (95.0-98.0) % Glucose (65-105) mg/dl Lactate (0.7-2.1) mmol/L Mechanical Rate FiO2 % Tidal Volume PEEP Sodium (132-148) mmol/L Potassium (3.6-5.0) mmol/L Chloride (98-107) mmol/L Carbon Dioxide (21-33) mmol/L Anion Gap (10-20) BUN (7-21) mg/dL Creatinine (0.7-1.2) mg/dl Est GFR ( Amer) Est GFR (Non-Af Amer) POC Glucose (mg/dL) 224 H 200 H 165 H (65-110) mg/dL Random Glucose (70-110) mg/dL Calcium (8.4-10.5) mg/dL Phosphorus (2.5-4.5) mg/dL Magnesium (1.7-2.2) mg/dL Total Bilirubin (0.2-1.3) mg/dL AST (14-36) U/L ALT (7-56) U/L Alkaline Phosphatase (38-126) U/L Lactate Dehydrogenase (333-699) U/L Total Protein (5.8-8.3) g/dL Albumin (3.0-4.8) g/dL Globulin gm/dL Albumin/Globulin Ratio (1.1-1.8) Arterial Blood Potassium (3.6-5.2) mmol/L Venous Blood Potassium (3.6-5.2) mmol/L Salicylates (2.0-20.0) mg/dL Acetaminophen (10.0-20.0) ug/ml HIV 1&2 Ag/Ab, 4th Gen (Nonreactive) 07/21/18 07/21/18 07/21/18 Range/Units 17:07 17:07 17:07 WBC 13.0 H (4.5-11.0) 10^3/uL RBC 3.41 L (3.5-6.1) 10^6/uL Hgb 11.2 L (12.0-16.0) g/dL Hct 32.7 L (36.0-48.0) % MCV 95.9 (80.0-105.0) fl MCH 32.8 (25.0-35.0) pg MCHC 34.3 (31.0-37.0) g/dl RDW 16.4 H (11.5-14.5) % Plt Count 137 (120.0-450.0) 10^3/uL MPV 12.3 H (7.0-11.0) fl APTT 94.7 H (25.1-36.5) Seconds pCO2 (35-45) mm/Hg pO2 (80-100) mm/Hg HCO3 (21-28) mmol/L ABG pH (7.35-7.45) ABG Total CO2 (22-28) mmol.L ABG O2 Saturation (95-98) % ABG O2 Content (15-23) ML/dl ABG Base Excess (-2.0-3.0) mmol/L ABG Hemoglobin (11.7-17.4) g/dL ABG Carboxyhemoglobin (0.5-1.5) % POC ABG HHb (Measured) (0-5) % ABG Methemoglobin (0.0-3.0) % ABG O2 Capacity (16-24) mL/dl ABG Potassium (3.6-5.2) mmol/L VBG pH (7.32-7.43) VBG pCO2 (40-60) VBG HCO3 (21-28) mmol/l VBG Total CO2 (22-28) mmol.L VBG O2 Sat (Calc) (40-65) % VBG Base Excess (0.0-2.0) mmol/L VBG Potassium (3.6-5.2) mmol/L Hgb O2 Saturation (95.0-98.0) % Glucose (65-105) mg/dl Lactate (0.7-2.1) mmol/L Mechanical Rate FiO2 % Tidal Volume PEEP Sodium (132-148) mmol/L Potassium (3.6-5.0) mmol/L Chloride (98-107) mmol/L Carbon Dioxide (21-33) mmol/L Anion Gap (10-20) BUN (7-21) mg/dL Creatinine (0.7-1.2) mg/dl Est GFR ( Amer) Est GFR (Non-Af Amer) POC Glucose (mg/dL) (65-110) mg/dL Random Glucose (70-110) mg/dL Calcium (8.4-10.5) mg/dL Phosphorus (2.5-4.5) mg/dL Magnesium (1.7-2.2) mg/dL Total Bilirubin (0.2-1.3) mg/dL AST (14-36) U/L ALT (7-56) U/L Alkaline Phosphatase (38-126) U/L Lactate Dehydrogenase (333-699) U/L Total Protein (5.8-8.3) g/dL Albumin (3.0-4.8) g/dL Globulin gm/dL Albumin/Globulin Ratio (1.1-1.8) Arterial Blood Potassium (3.6-5.2) mmol/L Venous Blood Potassium (3.6-5.2) mmol/L Salicylates (2.0-20.0) mg/dL Acetaminophen (10.0-20.0) ug/ml HIV 1&2 Ag/Ab, 4th Gen Nonreactive (Nonreactive) 07/21/18 07/21/18 07/21/18 Range/Units 17:07 11:35 06:30 WBC (4.5-11.0) 10^3/uL RBC (3.5-6.1) 10^6/uL Hgb (12.0-16.0) g/dL Hct (36.0-48.0) % MCV (80.0-105.0) fl MCH (25.0-35.0) pg MCHC (31.0-37.0) g/dl RDW (11.5-14.5) % Plt Count (120.0-450.0) 10^3/uL MPV (7.0-11.0) fl APTT (25.1-36.5) Seconds pCO2 19 L* (35-45) mm/Hg pO2 67.0 L (80-100) mm/Hg HCO3 8.9 L* (21-28) mmol/L ABG pH 7.28 L (7.35-7.45) ABG Total CO2 9.5 L (22-28) mmol.L ABG O2 Saturation 95.4 (95-98) % ABG O2 Content 14.2 L (15-23) ML/dl ABG Base Excess -15.9 L (-2.0-3.0) mmol/L ABG Hemoglobin 10.8 L (11.7-17.4) g/dL ABG Carboxyhemoglobin 1.4 (0.5-1.5) % POC ABG HHb (Measured) 4.5 (0-5) % ABG Methemoglobin 0.6 (0.0-3.0) % ABG O2 Capacity 14.9 L (16-24) mL/dl ABG Potassium (3.6-5.2) mmol/L VBG pH (7.32-7.43) VBG pCO2 (40-60) VBG HCO3 (21-28) mmol/l VBG Total CO2 (22-28) mmol.L VBG O2 Sat (Calc) (40-65) % VBG Base Excess (0.0-2.0) mmol/L VBG Potassium (3.6-5.2) mmol/L Hgb O2 Saturation 93.5 L (95.0-98.0) % Glucose (65-105) mg/dl Lactate (0.7-2.1) mmol/L Mechanical Rate FiO2 40.0 % Tidal Volume PEEP Sodium (132-148) mmol/L Potassium (3.6-5.0) mmol/L Chloride (98-107) mmol/L Carbon Dioxide (21-33) mmol/L Anion Gap (10-20) BUN (7-21) mg/dL Creatinine (0.7-1.2) mg/dl Est GFR ( Amer) Est GFR (Non-Af Amer) POC Glucose (mg/dL) (65-110) mg/dL Random Glucose (70-110) mg/dL Calcium (8.4-10.5) mg/dL Phosphorus (2.5-4.5) mg/dL Magnesium (1.7-2.2) mg/dL Total Bilirubin (0.2-1.3) mg/dL AST (14-36) U/L ALT (7-56) U/L Alkaline Phosphatase (38-126) U/L Lactate Dehydrogenase 907 H (333-699) U/L Total Protein (5.8-8.3) g/dL Albumin (3.0-4.8) g/dL Globulin gm/dL Albumin/Globulin Ratio (1.1-1.8) Arterial Blood Potassium (3.6-5.2) mmol/L Venous Blood Potassium (3.6-5.2) mmol/L Salicylates < 1 L (2.0-20.0) mg/dL Acetaminophen < 10.0 L (10.0-20.0) ug/ml HIV 1&2 Ag/Ab, 4th Gen (Nonreactive) Laboratory Results - last 24 hr 07/21/18 07/21/18 07/21/18 06:30 11:35 17:07 WBC RBC Hgb Hct MCV MCH MCHC RDW Plt Count MPV APTT pCO2 19 L* pO2 67.0 L HCO3 8.9 L* ABG pH 7.28 L ABG Total CO2 9.5 L ABG O2 Saturation 95.4 ABG O2 Content 14.2 L ABG Base Excess -15.9 L ABG Hemoglobin 10.8 L ABG Carboxyhemoglobin 1.4 POC ABG HHb (Measured) 4.5 ABG Methemoglobin 0.6 ABG O2 Capacity 14.9 L ABG Potassium VBG pH VBG pCO2 VBG HCO3 VBG Total CO2 VBG O2 Sat (Calc) VBG Base Excess VBG Potassium Hgb O2 Saturation 93.5 L Glucose Lactate Mechanical Rate FiO2 40.0 Tidal Volume PEEP Sodium Potassium Chloride Carbon Dioxide Anion Gap BUN Creatinine Est GFR ( Amer) Est GFR (Non-Af Amer) POC Glucose (mg/dL) Random Glucose Calcium Phosphorus Magnesium Total Bilirubin AST ALT Alkaline Phosphatase Lactate Dehydrogenase 907 H Total Protein Albumin Globulin Albumin/Globulin Ratio Arterial Blood Potassium Venous Blood Potassium Salicylates < 1 L Acetaminophen < 10.0 L HIV 1&2 Ag/Ab, 4th Gen 07/21/18 07/21/18 07/21/18 17:07 17:07 17:07 WBC 13.0 H RBC 3.41 L Hgb 11.2 L Hct 32.7 L MCV 95.9 MCH 32.8 MCHC 34.3 RDW 16.4 H Plt Count 137 MPV 12.3 H APTT 94.7 H pCO2 pO2 HCO3 ABG pH ABG Total CO2 ABG O2 Saturation ABG O2 Content ABG Base Excess ABG Hemoglobin ABG Carboxyhemoglobin POC ABG HHb (Measured) ABG Methemoglobin ABG O2 Capacity ABG Potassium VBG pH VBG pCO2 VBG HCO3 VBG Total CO2 VBG O2 Sat (Calc) VBG Base Excess VBG Potassium Hgb O2 Saturation Glucose Lactate Mechanical Rate FiO2 Tidal Volume PEEP Sodium Potassium Chloride Carbon Dioxide Anion Gap BUN Creatinine Est GFR ( Amer) Est GFR (Non-Af Amer) POC Glucose (mg/dL) Random Glucose Calcium Phosphorus Magnesium Total Bilirubin AST ALT Alkaline Phosphatase Lactate Dehydrogenase Total Protein Albumin Globulin Albumin/Globulin Ratio Arterial Blood Potassium Venous Blood Potassium Salicylates Acetaminophen HIV 1&2 Ag/Ab, 4th Gen Nonreactive 07/21/18 07/21/18 07/22/18 17:23 21:00 01:05 WBC RBC Hgb Hct MCV MCH MCHC RDW Plt Count MPV APTT pCO2 pO2 HCO3 ABG pH ABG Total CO2 ABG O2 Saturation ABG O2 Content ABG Base Excess ABG Hemoglobin ABG Carboxyhemoglobin POC ABG HHb (Measured) ABG Methemoglobin ABG O2 Capacity ABG Potassium VBG pH VBG pCO2 VBG HCO3 VBG Total CO2 VBG O2 Sat (Calc) VBG Base Excess VBG Potassium Hgb O2 Saturation Glucose Lactate Mechanical Rate FiO2 Tidal Volume PEEP Sodium Potassium Chloride Carbon Dioxide Anion Gap BUN Creatinine Est GFR ( Amer) Est GFR (Non-Af Amer) POC Glucose (mg/dL) 165 H 200 H 224 H Random Glucose Calcium Phosphorus Magnesium Total Bilirubin AST ALT Alkaline Phosphatase Lactate Dehydrogenase Total Protein Albumin Globulin Albumin/Globulin Ratio Arterial Blood Potassium Venous Blood Potassium Salicylates Acetaminophen HIV 1&2 Ag/Ab, 4th Gen 07/22/18 07/22/18 07/22/18 05:11 05:30 05:30 WBC 12.3 H RBC 3.08 L Hgb 9.8 L Hct 29.1 L MCV 94.5 MCH 31.8 MCHC 33.7 RDW 16.5 H Plt Count 115 L MPV 12.1 H APTT pCO2 pO2 HCO3 ABG pH ABG Total CO2 ABG O2 Saturation ABG O2 Content ABG Base Excess ABG Hemoglobin ABG Carboxyhemoglobin POC ABG HHb (Measured) ABG Methemoglobin ABG O2 Capacity ABG Potassium VBG pH VBG pCO2 VBG HCO3 VBG Total CO2 VBG O2 Sat (Calc) VBG Base Excess VBG Potassium Hgb O2 Saturation Glucose Lactate Mechanical Rate FiO2 Tidal Volume PEEP Sodium 143 Potassium 3.8 Chloride 113 H Carbon Dioxide 27 Anion Gap 7 L BUN 27 H Creatinine 1.1 Est GFR ( Amer) > 60 Est GFR (Non-Af Amer) 51 POC Glucose (mg/dL) 191 H Random Glucose 185 H Calcium 6.6 L* Phosphorus 2.3 L Magnesium 1.7 Total Bilirubin 0.4 AST 46 H D ALT 33 Alkaline Phosphatase 57 Lactate Dehydrogenase Total Protein 4.5 L Albumin 2.2 L Globulin 2.2 Albumin/Globulin Ratio 1.0 L Arterial Blood Potassium Venous Blood Potassium Salicylates Acetaminophen HIV 1&2 Ag/Ab, 4th Gen 07/22/18 07/22/18 07/22/18 05:50 08:57 11:00 WBC RBC Hgb Hct MCV MCH MCHC RDW Plt Count MPV APTT pCO2 34 L pO2 63.0 L 39 HCO3 25.9 ABG pH 7.49 H ABG Total CO2 26.9 ABG O2 Saturation 96.5 ABG O2 Content ABG Base Excess 2.9 ABG Hemoglobin ABG Carboxyhemoglobin POC ABG HHb (Measured) ABG Methemoglobin ABG O2 Capacity ABG Potassium 3.4 L VBG pH 7.45 H VBG pCO2 43.0 VBG HCO3 29.9 H VBG Total CO2 31.2 H VBG O2 Sat (Calc) 80.0 H VBG Base Excess 5.2 H VBG Potassium 3.4 L Hgb O2 Saturation Glucose 196 H 124 H Lactate 2.0 2.3 H Mechanical Rate 16 FiO2 60.0 21.0 Tidal Volume 400 PEEP 5 Sodium 143.0 144.0 Potassium Chloride 111.0 H 110.0 H Carbon Dioxide Anion Gap BUN Creatinine Est GFR ( Amer) Est GFR (Non-Af Amer) POC Glucose (mg/dL) 159 H Random Glucose Calcium Phosphorus Magnesium Total Bilirubin AST ALT Alkaline Phosphatase Lactate Dehydrogenase Total Protein Albumin Globulin Albumin/Globulin Ratio Arterial Blood Potassium 3.4 L Venous Blood Potassium 3.4 L Salicylates Acetaminophen HIV 1&2 Ag/Ab, 4th Gen Fingerstick Blood Sugar Results: 165 Review of Systems - Review of Systems Systems not reviewed;Unavailable: Intubated Critical Care Progress Note - Ventilator Checklist Head of Bed 30 Degrees: Yes Daily Sedation Vacation: Yes Daily Assessment of Readiness to Wean: Yes Daily Spontaneous Breathing Trial: Yes PUD Prophalyxis: Yes DVT Prophylaxis: Yes Oral Care with Chlorhexidine Gluconate {CHG}: Yes - Vent Settings MODE:: PRVC TIDAL VOLUME:: 400 RESP RATE:: 16 FIO2:: 50 PEEP:: 5 - Extremities/Vascular Does the Patient have a Central Venous Catheter?: Yes Insertion Site: Internal Jugular Vein Does the Patient need a Central Venous Catheter?: Yes Does the Patient have a Vazquez Catheter?: Yes Does the Patient need a Vazquez Catheter?: Yes Catheter Insertion Criteria: Need for accurate measurement of output in critically ill patient - Prophylaxis GI Prophylaxis GI: PPI - Prophylaxis DVT Prophylaxis DVT: SCDs - Nutrition Nutrition: Nutrition Category Date Time Status NPO Diet [DIET] Diets 07/20/18 Breakfast Ordered Assessment/Plan - Assessment and Plan (Free Text) Assessment: Patient is a 57 y/o F with PMHx asthma, 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 Patient was found to be hypothermic on presentation and intubated as a result of unresponsiveness. P atient was also found to be in shock during presentation. ICU was consulted for management. Patient was stabilized. Plan: Neuro: - Patient is alert/awake and following commands. - MRI Brain (07/21): no acute infarct or hemorrhage. Sub-optimal study due to patient's motion. - propofol drip; c/w fentanyl for agitation - d/c versed - Severe Hypothermia - resolved - EEG negative for seizures - Neurology consulted. Recs appreciated. - CT Head (07/20): no intracranial hemorrhage Cardio: - Distributive Shock with Multiorgan Dysfunction - c/w low dose levophed, fluids, and stress dose steroids for blood pressure support - Vasopressin was discontinued - Echo (07/21): EF 65%. No PFO. - Maintain MAP > 65 - Repeat EKG showed normal QTc interval and normal sinus rhythm - EKG initial showed sinus bradycardia and prolonged QTc interval (600s) likely due to hypothermia Pulm: - Intubated on mechanical ventilation; c/w low tidal volume ventilation to prevent ventilator associated lung injury. Patient failed Pressure Support today. Hold off on extubation. - CXR (07/22): L-lower lobe consolidation suspicious for PNA vs atelectasis - Vent management: HoB > 35 degrees, oral hygiene, suction, daily weaning trials, DVT/PE ppx - Maintain SaO2 > 92% GI: - Consider Pancreatic Shock in the setting of pancreatitis - Surgery does not want further intervention - GI suggests to c/w current management; c/w Lactated Ringers IVF - CT A/P: indicates pancreatitis - GI and Surgery were consulted, recs appreciated - RUQ ultrasound: no choledocholithiasis; not likely the cause for pancreatitis - Lipid panel does not suggest pancreatitis 2/2 elevated triglycerides - Lipase markedly elevated; >5000 - OG tube placed. Started on tube feeds: Jevity diet with free water flushes - GI ppx with PTX Renal: - AUBREY likely intra-renal - improved - bicarb drip discontinued - Oligouria - continue to monitor strict Ins/Outs; vazquez catheter is in place - Hyperkalemia - now resolved - Nephrology consulted. Recs appreciated ID: - c/w zosyn (Day #2) as per ID recs - leukocytosis downtrending - Procalcitonin elevated but in the setting of acute pancreatitis and AUBREY, it may be falsely elevated - ID consulted. Recs appreciated - f/u urine cx - Blood cx negative x2 (prelim) after 24 hours - MRSA negative Endo: - Maintain euglycemia, blood glucose 140-180 as per NICE-SUGAR trial - Accuchecks Heme: - Hgb now 9.8 from 11.2; consider dilutional effect - Consider anticoagulation due to patient's DVT/PE Hx - heparin drip is held due to episode of bleeding in the nares/mouth - Patient has Hx of DVT/PE (on coumadin) but is subtherapeutic INR since admission - DVT ppx with SCDs Dispo: Monitor patient in the ICU. Failed Pressure Support today, will delay extubation. Case was discussed and reviewed with Attending Physician, Dr. Beckford <Crow Beckford - Last Filed: 07/22/18 13:14> CCU Objective - Vital Signs / Intake & Output Intake and Output (Last 8hrs): Intake & Output 07/21/18 07/22/18 07/22/18 22:59 06:59 14:59 Intake Total 4390 120 Output Total 450 Balance 3940 120 Intake: IV 4330 120 Right Internal Jugular 4080 Oral 60 Output: Urine 450 2-way Urethral 450 Stool 0 - Medications Active Medications: Active Medications Generic Name Dose Route Start Last Admin Trade Name Freq PRN Reason Stop Dose Admin Aspirin 325 mg 07/21/18 10:00 07/22/18 10:21 Aspirin PO 325 mg DAILY MELY Administration Hydrocortisone Sodium Succinate 50 mg 07/21/18 09:45 07/22/18 10:19 Solu-Cortef IVP 50 mg Q6H MELY Administration NOREPINEPHRINE BIT/0.9 % NACL 4 mg in 250 mls @ 15 mls/hr 07/20/18 15:26 07/22/18 07:43 Levophed 4 Mg/ 250 Ml Ns Premixed IV 4 mcg/min .[id number] PRN 15 mls/hr TITRATE PER MD ORDER Titration Protocol 4 MCG/MIN Levetiracetam 500 mg in 100 mls @ 400 mls/hr 07/20/18 22:00 07/22/18 10:23 Keppra 500mg Ivpb IV 400 mls/hr Q12 MELY Administration Heparin Sodium/Sodium Chloride 25,000 units in 250 mls @ 7.348 mls/hr 07/20/18 17:14 07/21/18 12:30 Heparin 03847 Units/250ml 1/2 Normal Saline IV 12 units/kg/hr .Q24H PRN 4.899 mls/hr ADJUST RATE PER PROTOCOL Titration Protocol 18 UNITS/KG/HR Fentanyl Citrate 1,000 mcg in 100 mls @ 5 mls/hr 07/21/18 13:01 07/21/18 13:17 Fentanyl Citrate/Sodium Chloride 1 Mg/100 Ml IV 50 mcg/hr .Q20H PRN 5 mls/hr TITRATE PER MD ORDER Administration Protocol 50 MCG/HR Piperacillin Sod/Tazobactam Sod 100 mls @ 25 mls/hr 07/22/18 11:00 07/22/18 11:05 Zosyn 3.375 In Ns 100ml IVPB 25 mls/hr Q8H MELY Administration Protocol Propofol 1,000 mg in 100 mls @ 1.225 mls/hr 07/22/18 10:46 Diprivan IV .Q24H PRN TITRATE PER MD ORDER Protocol 5 MCG/KG/MIN Lactated Ringer's 1,000 mls @ 75 mls/hr 07/22/18 11:00 07/22/18 11:22 Lactated Ringer's IV 75 mls/hr .[id number] MELY Administration Pantoprazole Sodium 40 mg 07/20/18 22:00 07/22/18 10:20 Protonix Inj IVP 40 mg Q12 MELY Administration - Patient Studies Lab Studies: Microbiology Studies 07/20/18 12:08 Blood Culture - Preliminary Blood-Venous NO GROWTH AFTER 48 HOURS 07/20/18 22:17 MRSA Culture (Admit) - Final Naris MRSA NOT DETECTED 07/20/18 16:01 Blood Culture - Preliminary Blood-Venous NO GROWTH AFTER 24 HOURS Lab Studies 07/22/18 07/22/18 07/22/18 Range/Units 11:00 08:57 05:50 WBC (4.5-11.0) 10^3/uL RBC (3.5-6.1) 10^6/uL Hgb (12.0-16.0) g/dL Hct (36.0-48.0) % MCV (80.0-105.0) fl MCH (25.0-35.0) pg MCHC (31.0-37.0) g/dl RDW (11.5-14.5) % Plt Count (120.0-450.0) 10^3/uL MPV (7.0-11.0) fl APTT (25.1-36.5) Seconds pCO2 34 L (35-45) mm/Hg pO2 39 63.0 L (80-100) mm/Hg HCO3 25.9 (21-28) mmol/L ABG pH 7.49 H (7.35-7.45) ABG Total CO2 26.9 (22-28) mmol.L ABG O2 Saturation 96.5 (95-98) % ABG Base Excess 2.9 (-2.0-3.0) mmol/L ABG Potassium 3.4 L (3.6-5.2) mmol/L VBG pH 7.45 H (7.32-7.43) VBG pCO2 43.0 (40-60) VBG HCO3 29.9 H (21-28) mmol/l VBG Total CO2 31.2 H (22-28) mmol.L VBG O2 Sat (Calc) 80.0 H (40-65) % VBG Base Excess 5.2 H (0.0-2.0) mmol/L VBG Potassium 3.4 L (3.6-5.2) mmol/L Glucose 124 H 196 H (65-105) mg/dl Lactate 2.3 H 2.0 (0.7-2.1) mmol/L Mechanical Rate 16 FiO2 21.0 60.0 % Tidal Volume 400 PEEP 5 Sodium 144.0 143.0 (132-148) mmol/L Potassium (3.6-5.0) mmol/L Chloride 110.0 H 111.0 H (98-107) mmol/L Carbon Dioxide (21-33) mmol/L Anion Gap (10-20) BUN (7-21) mg/dL Creatinine (0.7-1.2) mg/dl Est GFR ( Amer) Est GFR (Non-Af Amer) POC Glucose (mg/dL) 159 H (65-110) mg/dL Random Glucose (70-110) mg/dL Calcium (8.4-10.5) mg/dL Phosphorus (2.5-4.5) mg/dL Magnesium (1.7-2.2) mg/dL Total Bilirubin (0.2-1.3) mg/dL AST (14-36) U/L ALT (7-56) U/L Alkaline Phosphatase (38-126) U/L Total Protein (5.8-8.3) g/dL Albumin (3.0-4.8) g/dL Globulin gm/dL Albumin/Globulin Ratio (1.1-1.8) Arterial Blood Potassium 3.4 L (3.6-5.2) mmol/L Venous Blood Potassium 3.4 L (3.6-5.2) mmol/L Salicylates (2.0-20.0) mg/dL Acetaminophen (10.0-20.0) ug/ml HIV 1&2 Ag/Ab, 4th Gen (Nonreactive) 07/22/18 07/22/18 07/22/18 Range/Units 05:30 05:30 05:11 WBC 12.3 H (4.5-11.0) 10^3/uL RBC 3.08 L (3.5-6.1) 10^6/uL Hgb 9.8 L (12.0-16.0) g/dL Hct 29.1 L (36.0-48.0) % MCV 94.5 (80.0-105.0) fl MCH 31.8 (25.0-35.0) pg MCHC 33.7 (31.0-37.0) g/dl RDW 16.5 H (11.5-14.5) % Plt Count 115 L (120.0-450.0) 10^3/uL MPV 12.1 H (7.0-11.0) fl APTT (25.1-36.5) Seconds pCO2 (35-45) mm/Hg pO2 (80-100) mm/Hg HCO3 (21-28) mmol/L ABG pH (7.35-7.45) ABG Total CO2 (22-28) mmol.L ABG O2 Saturation (95-98) % ABG Base Excess (-2.0-3.0) mmol/L ABG Potassium (3.6-5.2) mmol/L VBG pH (7.32-7.43) VBG pCO2 (40-60) VBG HCO3 (21-28) mmol/l VBG Total CO2 (22-28) mmol.L VBG O2 Sat (Calc) (40-65) % VBG Base Excess (0.0-2.0) mmol/L VBG Potassium (3.6-5.2) mmol/L Glucose (65-105) mg/dl Lactate (0.7-2.1) mmol/L Mechanical Rate FiO2 % Tidal Volume PEEP Sodium 143 (132-148) mmol/L Potassium 3.8 (3.6-5.0) mmol/L Chloride 113 H (98-107) mmol/L Carbon Dioxide 27 (21-33) mmol/L Anion Gap 7 L (10-20) BUN 27 H (7-21) mg/dL Creatinine 1.1 (0.7-1.2) mg/dl Est GFR ( Amer) > 60 Est GFR (Non-Af Amer) 51 POC Glucose (mg/dL) 191 H (65-110) mg/dL Random Glucose 185 H (70-110) mg/dL Calcium 6.6 L* (8.4-10.5) mg/dL Phosphorus 2.3 L (2.5-4.5) mg/dL Magnesium 1.7 (1.7-2.2) mg/dL Total Bilirubin 0.4 (0.2-1.3) mg/dL AST 46 H D (14-36) U/L ALT 33 (7-56) U/L Alkaline Phosphatase 57 (38-126) U/L Total Protein 4.5 L (5.8-8.3) g/dL Albumin 2.2 L (3.0-4.8) g/dL Globulin 2.2 gm/dL Albumin/Globulin Ratio 1.0 L (1.1-1.8) Arterial Blood Potassium (3.6-5.2) mmol/L Venous Blood Potassium (3.6-5.2) mmol/L Salicylates (2.0-20.0) mg/dL Acetaminophen (10.0-20.0) ug/ml HIV 1&2 Ag/Ab, 4th Gen (Nonreactive) 07/22/18 07/21/18 07/21/18 Range/Units 01:05 21:00 17:23 WBC (4.5-11.0) 10^3/uL RBC (3.5-6.1) 10^6/uL Hgb (12.0-16.0) g/dL Hct (36.0-48.0) % MCV (80.0-105.0) fl MCH (25.0-35.0) pg MCHC (31.0-37.0) g/dl RDW (11.5-14.5) % Plt Count (120.0-450.0) 10^3/uL MPV (7.0-11.0) fl APTT (25.1-36.5) Seconds pCO2 (35-45) mm/Hg pO2 (80-100) mm/Hg HCO3 (21-28) mmol/L ABG pH (7.35-7.45) ABG Total CO2 (22-28) mmol.L ABG O2 Saturation (95-98) % ABG Base Excess (-2.0-3.0) mmol/L ABG Potassium (3.6-5.2) mmol/L VBG pH (7.32-7.43) VBG pCO2 (40-60) VBG HCO3 (21-28) mmol/l VBG Total CO2 (22-28) mmol.L VBG O2 Sat (Calc) (40-65) % VBG Base Excess (0.0-2.0) mmol/L VBG Potassium (3.6-5.2) mmol/L Glucose (65-105) mg/dl Lactate (0.7-2.1) mmol/L Mechanical Rate FiO2 % Tidal Volume PEEP Sodium (132-148) mmol/L Potassium (3.6-5.0) mmol/L Chloride (98-107) mmol/L Carbon Dioxide (21-33) mmol/L Anion Gap (10-20) BUN (7-21) mg/dL Creatinine (0.7-1.2) mg/dl Est GFR ( Amer) Est GFR (Non-Af Amer) POC Glucose (mg/dL) 224 H 200 H 165 H (65-110) mg/dL Random Glucose (70-110) mg/dL Calcium (8.4-10.5) mg/dL Phosphorus (2.5-4.5) mg/dL Magnesium (1.7-2.2) mg/dL Total Bilirubin (0.2-1.3) mg/dL AST (14-36) U/L ALT (7-56) U/L Alkaline Phosphatase (38-126) U/L Total Protein (5.8-8.3) g/dL Albumin (3.0-4.8) g/dL Globulin gm/dL Albumin/Globulin Ratio (1.1-1.8) Arterial Blood Potassium (3.6-5.2) mmol/L Venous Blood Potassium (3.6-5.2) mmol/L Salicylates (2.0-20.0) mg/dL Acetaminophen (10.0-20.0) ug/ml HIV 1&2 Ag/Ab, 4th Gen (Nonreactive) 07/21/18 07/21/18 07/21/18 Range/Units 17:07 17:07 17:07 WBC 13.0 H (4.5-11.0) 10^3/uL RBC 3.41 L (3.5-6.1) 10^6/uL Hgb 11.2 L (12.0-16.0) g/dL Hct 32.7 L (36.0-48.0) % MCV 95.9 (80.0-105.0) fl MCH 32.8 (25.0-35.0) pg MCHC 34.3 (31.0-37.0) g/dl RDW 16.4 H (11.5-14.5) % Plt Count 137 (120.0-450.0) 10^3/uL MPV 12.3 H (7.0-11.0) fl APTT 94.7 H (25.1-36.5) Seconds pCO2 (35-45) mm/Hg pO2 (80-100) mm/Hg HCO3 (21-28) mmol/L ABG pH (7.35-7.45) ABG Total CO2 (22-28) mmol.L ABG O2 Saturation (95-98) % ABG Base Excess (-2.0-3.0) mmol/L ABG Potassium (3.6-5.2) mmol/L VBG pH (7.32-7.43) VBG pCO2 (40-60) VBG HCO3 (21-28) mmol/l VBG Total CO2 (22-28) mmol.L VBG O2 Sat (Calc) (40-65) % VBG Base Excess (0.0-2.0) mmol/L VBG Potassium (3.6-5.2) mmol/L Glucose (65-105) mg/dl Lactate (0.7-2.1) mmol/L Mechanical Rate FiO2 % Tidal Volume PEEP Sodium (132-148) mmol/L Potassium (3.6-5.0) mmol/L Chloride (98-107) mmol/L Carbon Dioxide (21-33) mmol/L Anion Gap (10-20) BUN (7-21) mg/dL Creatinine (0.7-1.2) mg/dl Est GFR ( Amer) Est GFR (Non-Af Amer) POC Glucose (mg/dL) (65-110) mg/dL Random Glucose (70-110) mg/dL Calcium (8.4-10.5) mg/dL Phosphorus (2.5-4.5) mg/dL Magnesium (1.7-2.2) mg/dL Total Bilirubin (0.2-1.3) mg/dL AST (14-36) U/L ALT (7-56) U/L Alkaline Phosphatase (38-126) U/L Total Protein (5.8-8.3) g/dL Albumin (3.0-4.8) g/dL Globulin gm/dL Albumin/Globulin Ratio (1.1-1.8) Arterial Blood Potassium (3.6-5.2) mmol/L Venous Blood Potassium (3.6-5.2) mmol/L Salicylates (2.0-20.0) mg/dL Acetaminophen (10.0-20.0) ug/ml HIV 1&2 Ag/Ab, 4th Gen Nonreactive (Nonreactive) 07/21/18 Range/Units 17:07 WBC (4.5-11.0) 10^3/uL RBC (3.5-6.1) 10^6/uL Hgb (12.0-16.0) g/dL Hct (36.0-48.0) % MCV (80.0-105.0) fl MCH (25.0-35.0) pg MCHC (31.0-37.0) g/dl RDW (11.5-14.5) % Plt Count (120.0-450.0) 10^3/uL MPV (7.0-11.0) fl APTT (25.1-36.5) Seconds pCO2 (35-45) mm/Hg pO2 (80-100) mm/Hg HCO3 (21-28) mmol/L ABG pH (7.35-7.45) ABG Total CO2 (22-28) mmol.L ABG O2 Saturation (95-98) % ABG Base Excess (-2.0-3.0) mmol/L ABG Potassium (3.6-5.2) mmol/L VBG pH (7.32-7.43) VBG pCO2 (40-60) VBG HCO3 (21-28) mmol/l VBG Total CO2 (22-28) mmol.L VBG O2 Sat (Calc) (40-65) % VBG Base Excess (0.0-2.0) mmol/L VBG Potassium (3.6-5.2) mmol/L Glucose (65-105) mg/dl Lactate (0.7-2.1) mmol/L Mechanical Rate FiO2 % Tidal Volume PEEP Sodium (132-148) mmol/L Potassium (3.6-5.0) mmol/L Chloride (98-107) mmol/L Carbon Dioxide (21-33) mmol/L Anion Gap (10-20) BUN (7-21) mg/dL Creatinine (0.7-1.2) mg/dl Est GFR ( Amer) Est GFR (Non-Af Amer) POC Glucose (mg/dL) (65-110) mg/dL Random Glucose (70-110) mg/dL Calcium (8.4-10.5) mg/dL Phosphorus (2.5-4.5) mg/dL Magnesium (1.7-2.2) mg/dL Total Bilirubin (0.2-1.3) mg/dL AST (14-36) U/L ALT (7-56) U/L Alkaline Phosphatase (38-126) U/L Total Protein (5.8-8.3) g/dL Albumin (3.0-4.8) g/dL Globulin gm/dL Albumin/Globulin Ratio (1.1-1.8) Arterial Blood Potassium (3.6-5.2) mmol/L Venous Blood Potassium (3.6-5.2) mmol/L Salicylates < 1 L (2.0-20.0) mg/dL Acetaminophen < 10.0 L (10.0-20.0) ug/ml HIV 1&2 Ag/Ab, 4th Gen (Nonreactive) Laboratory Results - last 24 hr 07/21/18 07/21/18 07/21/18 17:07 17:07 17:07 WBC 13.0 H RBC 3.41 L Hgb 11.2 L Hct 32.7 L MCV 95.9 MCH 32.8 MCHC 34.3 RDW 16.4 H Plt Count 137 MPV 12.3 H APTT pCO2 pO2 HCO3 ABG pH ABG Total CO2 ABG O2 Saturation ABG Base Excess ABG Potassium VBG pH VBG pCO2 VBG HCO3 VBG Total CO2 VBG O2 Sat (Calc) VBG Base Excess VBG Potassium Glucose Lactate Mechanical Rate FiO2 Tidal Volume PEEP Sodium Potassium Chloride Carbon Dioxide Anion Gap BUN Creatinine Est GFR ( Amer) Est GFR (Non-Af Amer) POC Glucose (mg/dL) Random Glucose Calcium Phosphorus Magnesium Total Bilirubin AST ALT Alkaline Phosphatase Total Protein Albumin Globulin Albumin/Globulin Ratio Arterial Blood Potassium Venous Blood Potassium Salicylates < 1 L Acetaminophen < 10.0 L HIV 1&2 Ag/Ab, 4th Gen Nonreactive 07/21/18 07/21/18 07/21/18 17:07 17:23 21:00 WBC RBC Hgb Hct MCV MCH MCHC RDW Plt Count MPV APTT 94.7 H pCO2 pO2 HCO3 ABG pH ABG Total CO2 ABG O2 Saturation ABG Base Excess ABG Potassium VBG pH VBG pCO2 VBG HCO3 VBG Total CO2 VBG O2 Sat (Calc) VBG Base Excess VBG Potassium Glucose Lactate Mechanical Rate FiO2 Tidal Volume PEEP Sodium Potassium Chloride Carbon Dioxide Anion Gap BUN Creatinine Est GFR ( Amer) Est GFR (Non-Af Amer) POC Glucose (mg/dL) 165 H 200 H Random Glucose Calcium Phosphorus Magnesium Total Bilirubin AST ALT Alkaline Phosphatase Total Protein Albumin Globulin Albumin/Globulin Ratio Arterial Blood Potassium Venous Blood Potassium Salicylates Acetaminophen HIV 1&2 Ag/Ab, 4th Gen 07/22/18 07/22/18 07/22/18 01:05 05:11 05:30 WBC RBC Hgb Hct MCV MCH MCHC RDW Plt Count MPV APTT pCO2 pO2 HCO3 ABG pH ABG Total CO2 ABG O2 Saturation ABG Base Excess ABG Potassium VBG pH VBG pCO2 VBG HCO3 VBG Total CO2 VBG O2 Sat (Calc) VBG Base Excess VBG Potassium Glucose Lactate Mechanical Rate FiO2 Tidal Volume PEEP Sodium 143 Potassium 3.8 Chloride 113 H Carbon Dioxide 27 Anion Gap 7 L BUN 27 H Creatinine 1.1 Est GFR ( Amer) > 60 Est GFR (Non-Af Amer) 51 POC Glucose (mg/dL) 224 H 191 H Random Glucose 185 H Calcium 6.6 L* Phosphorus 2.3 L Magnesium 1.7 Total Bilirubin 0.4 AST 46 H D ALT 33 Alkaline Phosphatase 57 Total Protein 4.5 L Albumin 2.2 L Globulin 2.2 Albumin/Globulin Ratio 1.0 L Arterial Blood Potassium Venous Blood Potassium Salicylates Acetaminophen HIV 1&2 Ag/Ab, 4th Gen 07/22/18 07/22/18 07/22/18 05:30 05:50 08:57 WBC 12.3 H RBC 3.08 L Hgb 9.8 L Hct 29.1 L MCV 94.5 MCH 31.8 MCHC 33.7 RDW 16.5 H Plt Count 115 L MPV 12.1 H APTT pCO2 34 L pO2 63.0 L HCO3 25.9 ABG pH 7.49 H ABG Total CO2 26.9 ABG O2 Saturation 96.5 ABG Base Excess 2.9 ABG Potassium 3.4 L VBG pH VBG pCO2 VBG HCO3 VBG Total CO2 VBG O2 Sat (Calc) VBG Base Excess VBG Potassium Glucose 196 H Lactate 2.0 Mechanical Rate 16 FiO2 60.0 Tidal Volume 400 PEEP 5 Sodium 143.0 Potassium Chloride 111.0 H Carbon Dioxide Anion Gap BUN Creatinine Est GFR ( Amer) Est GFR (Non-Af Amer) POC Glucose (mg/dL) 159 H Random Glucose Calcium Phosphorus Magnesium Total Bilirubin AST ALT Alkaline Phosphatase Total Protein Albumin Globulin Albumin/Globulin Ratio Arterial Blood Potassium 3.4 L Venous Blood Potassium Salicylates Acetaminophen HIV 1&2 Ag/Ab, 4th Gen 07/22/18 11:00 WBC RBC Hgb Hct MCV MCH MCHC RDW Plt Count MPV APTT pCO2 pO2 39 HCO3 ABG pH ABG Total CO2 ABG O2 Saturation ABG Base Excess ABG Potassium VBG pH 7.45 H VBG pCO2 43.0 VBG HCO3 29.9 H VBG Total CO2 31.2 H VBG O2 Sat (Calc) 80.0 H VBG Base Excess 5.2 H VBG Potassium 3.4 L Glucose 124 H Lactate 2.3 H Mechanical Rate FiO2 21.0 Tidal Volume PEEP Sodium 144.0 Potassium Chloride 110.0 H Carbon Dioxide Anion Gap BUN Creatinine Est GFR ( Amer) Est GFR (Non-Af Amer) POC Glucose (mg/dL) Random Glucose Calcium Phosphorus Magnesium Total Bilirubin AST ALT Alkaline Phosphatase Total Protein Albumin Globulin Albumin/Globulin Ratio Arterial Blood Potassium Venous Blood Potassium 3.4 L Salicylates Acetaminophen HIV 1&2 Ag/Ab, 4th Gen Critical Care Progress Note - Nutrition Nutrition: Nutrition Category Date Time Status NPO Diet [DIET] Diets 07/20/18 Breakfast Ordered Attending/Attestation - Attestation I have personally seen and examined this patient.: Yes I have fully participated in the care of the patient.: Yes I have reviewed all pertinent clinical information: Yes Notes (Text): 07/22/18 13:09 The patient was seen and examined at the bedside. Patient care was discussed with resident Medical records, lab studies, and imaging were reviewed and management issues were discussed and formulated. Last 24H events reviewed. Agree with above treatment plans as outlined in 's note with addition of the following: Acute Respiratory Failure \ Hypoxemia \ Septic shock \ PNA \ Pancreatitis \ Encephalopathy \ ho DVT \ AUBREY \ -hemodynamic monitoring to maintain MAP>65; continue vasopressor support with levophed -mechanical ventilation and o2 supplementation to maintain Spo2 >90 Pao2>60 -monitor for TV 6ml\kg IBW and plateau pressure <30 -ABG in AM reviewed CXR reviewed; left LL opacification noted -PS trial failed this morning -start nebs and continue pulmonary toileting -continue broad spectrum Abx as per ID team and f\u cultures -f\u Bun\Cr and U\o; monitor and replace e-lites -d\c bicarb drip -start Tube feds diet and continue aspiration precautions -neurology team f\u -heparin stopped as pt had bleeding from mouth and nose -DVT \ PUD prophylaxis CCM time 36min
--- NOTE | 2018-07-22 11:53 | PN ---
DATE: 07/22/2018 SUBJECTIVE: This 57-year-old female remains intubated in ICU, bed #3. She is being followed by Infectious Disease, GI, Surgery and Intensive Care. She remains intubated after presenting with hypothermia and altered mental status. I did review her brain MRI report which shows no evidence of intracranial stroke or hemorrhage and she had a 2-D echocardiogram which I reviewed which shows normal left ventricular ejection fraction, no significant valvular abnormalities and evidence of no PFO. Chest x-ray this morning was reviewed and shows evidence of new volume loss and consolidation in the left lower lobe consistent with lobar atelectasis. The patient is being followed by Dr. Do from GI and Dr. John Alfred from Surgery with plans for continued IV fluid resuscitation and IV antibiotics with decision for extubation to be made by input from GI and the wet finisher. PHYSICAL EXAMINATION: VITAL SIGNS: The patient had a temperature of 97.3, respirations 17, pulse 70, blood pressure 100/65 with 96% saturation on FIO2 of 60%. HEAD: Normocephalic, atraumatic. Eyes no icterus. NECK: Supple. HEART: S1, S2. LUNGS: With decreased breath sounds at left base and rhonchi. ABDOMEN: Soft. EXTREMITIES: No edema. SKIN: Without rash. NEUROLOGICAL: Not assessed. VASCULAR: Legs warm to touch. PSYCHOLOGICAL: Not assessed. White count 12,300, hemoglobin 9.8, hematocrit 29.1, platelets 115,000. Sodium 143, K 3.8, chloride 113, bicarb 27, BUN 27, creatinine 1.1, random blood sugar 185, calcium 6.6, phosphorous 2.3, magnesium 1.7. Bilirubin 0.4, AST 46, ALT 33, alk phos 57, albumin 2.2. IMPRESSION: A 57-year-old female admitted with hypothermia, altered mental status, acute pancreatitis, positive drug screen for marijuana, now with dilutional anemia, mild thrombocytopenia and stabilized normal temperature and rule out cholecystitis and improved blood pressure on IV fluids and IV Levophed. PLAN: The plan at present will be to continue IV Keppra, Ringer's lactate, IV Levophed, IV Protonix, stress-dose Solu-Cortef, IV Zosyn. She will have repeat comprehensive metabolic panel, magnesium, phosphorus levels and CBC in the a.m. Shipping And Receiving Coordinator will discuss with GI timing for respiratory weaning and extubation. Her HIV screen has been received and is pending. She remains p.o. She will start tube feedings of Jevity to be increased from 15-45 mL/hour as tolerated as outlined by GI and is wearing sequential compression device, antiembolism stockings and is requested to have continued speech and occupational therapy as outlined. All of the above was discussed in detail with intensive care team. All questions were answered. Kena Lazo MD MTDD
[2018-07-22] MEDS: Fentanyl 1000mcg/100ml NS 1,000 MCG/100 ML BAG IV PRN (15:41)
--- NOTE | 2018-07-22 15:51 | CP.PCM.PN ---
Subjective - Date & Time of Evaluation Date of Evaluation: 07/22/18 Time of Evaluation: 15:48 - Subjective Subjective: Neurology Progress Note for Dr. Ny Patient seen and examined at bedside. No acute overnight events. Patient currently intubated, but off sedation. Patient responding to commands. ROS limited 2/2 to intubation. Objective - Vital Signs/Intake and Output Vital Signs (last 24 hours): Temp Pulse Resp BP Pulse Ox 96.8 F L 89 17 156/118 H 96 07/22/18 12:00 07/22/18 15:00 07/22/18 07:34 07/22/18 15:00 07/22/18 15:00 Intake and Output: 07/22/18 07/22/18 06:59 18:59 Intake Total 250 235 Balance 250 235 - Medications Medications: Current Medications Albuterol/Ipratropium (Duoneb 3 Mg/0.5 Mg (3 Ml) Ud) 3 ml [id number] Aspirin (Aspirin) 325 mg PO DAILY [facility] Last Admin: 07/22/18 10:21 Dose: 325 mg Hydrocortisone Sodium Succinate (Solu-Cortef) 50 mg IVP Q6H MELY Last Admin: 07/22/18 10:19 Dose: 50 mg NOREPINEPHRINE BIT/0.9 % NACL (Levophed 4 Mg/ 250 Ml Ns Premixed) 4 mg in 250 mls @ 15 mls/hr IV .[id number] PRN; Protocol PRN Reason: TITRATE PER MD ORDER Last Titration: 07/22/18 07:43 Dose: 4 mcg/min, 15 mls/hr Levetiracetam (Keppra 500mg Ivpb) 500 mg in 100 mls @ 400 mls/hr IV Q12 MELY Last Admin: 07/22/18 10:23 Dose: 400 mls/hr Heparin Sodium/Sodium Chloride (Heparin 24281 Units/250ml 1/2 Normal Saline) 25,000 units in 250 mls @ 7.348 mls/hr IV .Q24H PRN; Protocol PRN Reason: ADJUST RATE PER PROTOCOL Last Titration: 07/21/18 12:30 Dose: 12 units/kg/hr, 4.899 mls/hr Fentanyl Citrate (Fentanyl Citrate/Sodium Chloride 1 Mg/100 Ml) 1,000 mcg in 100 mls @ 5 mls/hr IV .Q20H PRN; Protocol PRN Reason: TITRATE PER MD ORDER Last Titration: 07/22/18 15:43 Dose: 80 mcg/hr, 8 mls/hr Piperacillin Sod/Tazobactam Sod (Zosyn 3.375 In Ns 100ml) 100 mls @ 25 mls/hr IVPB Q8H [facility]; Protocol Last Admin: 07/22/18 11:05 Dose: 25 mls/hr Propofol (Diprivan) 1,000 mg in 100 mls @ 1.225 mls/hr IV .Q24H PRN; Protocol PRN Reason: TITRATE PER MD ORDER Last Titration: 07/22/18 15:44 Dose: 10 mcg/kg/min, 2.449 mls/hr Lactated Ringer's (Lactated Ringer's) 1,000 mls @ 75 mls/hr IV .[id number] [facility] Last Admin: 07/22/18 11:22 Dose: 75 mls/hr Pantoprazole Sodium (Protonix Inj) 40 mg IVP Q12 [facility] Last Admin: 07/22/18 10:20 Dose: 40 mg - Labs Labs: 07/22/18 05:30 07/22/18 05:30 PT 11.3 SECONDS (9.4-12.5) 07/20/18 16:01 INR 0.99 07/20/18 16:01 APTT 94.7 Seconds (25.1-36.5) H 07/21/18 17:07 - Constitutional Appears: No Acute Distress - Head Exam Head Exam: NORMAL INSPECTION - Eye Exam Eye Exam: Normal appearance - ENT Exam Additional comments: ETT in place - Neck Exam Neck Exam: Normal Inspection - Respiratory Exam Respiratory Exam: Clear to Ausculation Bilateral, NORMAL BREATHING PATTERN - Cardiovascular Exam Cardiovascular Exam: REGULAR RHYTHM - GI/Abdominal Exam GI & Abdominal Exam: Soft, Normal Bowel Sounds - Back Exam Back Exam: NORMAL INSPECTION - Neurological Exam Neurological Exam: Alert, Awake, CN II-XII Intact Additional comments: Follows commands appropriately, further neurological exam limited as patient is intubated and restrained - Skin Skin Exam: Normal Color Assessment and Plan - Assessment and Plan (Free Text) Assessment: Patient is a 57 y/o F with PMHx asthma, 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 Patient was found to be hypothermic on presentation and intubated as a result of unresponsiveness. Patient was also found to be in shock during presentation. Neurology consulted for possible seizure vs. stroke. Plan: - Brain MRI negative - Echo normal EF, no PFO - EEG normal - Cont Keppra Patient seen and discussed in detail with Dr. Ny. Donny Suarez DO PGY2
--- NOTE | 2018-07-22 18:52 | CP.PCM.PN ---
Subjective - Date & Time of Evaluation Date of Evaluation: 07/22/18 Time of Evaluation: 10:45 - Subjective Subjective: Continues to be intubated, no fevers. Objective - Vital Signs/Intake and Output Vital Signs (last 24 hours): Temp Pulse Resp BP Pulse Ox 96.8 F L 89 17 156/118 H 96 07/22/18 12:00 07/22/18 15:00 07/22/18 07:34 07/22/18 15:00 07/22/18 15:00 Intake and Output: 07/22/18 07/22/18 06:59 18:59 Intake Total 250 235 Balance 250 235 - Medications Medications: Current Medications Albuterol/Ipratropium (Duoneb 3 Mg/0.5 Mg (3 Ml) Ud) 3 ml IH [id number] MELY Aspirin (Aspirin) 325 mg PO DAILY [facility] Last Admin: 07/22/18 10:21 Dose: 325 mg Hydrocortisone Sodium Succinate (Solu-Cortef) 50 mg IVP Q6H MELY Last Admin: 07/22/18 16:10 Dose: 50 mg NOREPINEPHRINE BIT/0.9 % NACL (Levophed 4 Mg/ 250 Ml Ns Premixed) 4 mg in 250 mls @ 15 mls/hr IV .[id number] PRN; Protocol PRN Reason: TITRATE PER MD ORDER Last Titration: 07/22/18 07:43 Dose: 4 mcg/min, 15 mls/hr Levetiracetam (Keppra 500mg Ivpb) 500 mg in 100 mls @ 400 mls/hr IV Q12 MELY Last Admin: 07/22/18 10:23 Dose: 400 mls/hr Heparin Sodium/Sodium Chloride (Heparin 24261 Units/250ml 1/2 Normal Saline) 25,000 units in 250 mls @ 7.348 mls/hr IV .Q24H PRN; Protocol PRN Reason: ADJUST RATE PER PROTOCOL Last Titration: 07/21/18 12:30 Dose: 12 units/kg/hr, 4.899 mls/hr Fentanyl Citrate (Fentanyl Citrate/Sodium Chloride 1 Mg/100 Ml) 1,000 mcg in 100 mls @ 5 mls/hr IV .Q20H PRN; Protocol PRN Reason: TITRATE PER MD ORDER Last Titration: 07/22/18 15:43 Dose: 80 mcg/hr, 8 mls/hr Piperacillin Sod/Tazobactam Sod (Zosyn 3.375 In Ns 100ml) 100 mls @ 25 mls/hr IVPB Q8H MELY; Protocol Last Admin: 07/22/18 18:24 Dose: 25 mls/hr Propofol (Diprivan) 1,000 mg in 100 mls @ 1.225 mls/hr IV .Q24H PRN; Protocol PRN Reason: TITRATE PER MD ORDER Last Titration: 07/22/18 15:44 Dose: 10 mcg/kg/min, 2.449 mls/hr Lactated Ringer's (Lactated Ringer's) 1,000 mls @ 75 mls/hr IV .[id number] MELY Last Admin: 07/22/18 11:22 Dose: 75 mls/hr Pantoprazole Sodium (Protonix Inj) 40 mg IVP Q12 MELY Last Admin: 07/22/18 10:20 Dose: 40 mg - Labs Labs: 07/22/18 05:30 07/22/18 05:30 PT 11.3 SECONDS (9.4-12.5) 07/20/18 16:01 INR 0.99 07/20/18 16:01 APTT 94.7 Seconds (25.1-36.5) H 07/21/18 17:07 - Constitutional Appears: Other (intubated, sedated) - ENT Exam Additional comments: ET tube in place - Respiratory Exam Respiratory Exam: Decreased Breath Sounds - Cardiovascular Exam Cardiovascular Exam: +S1, +S2 - GI/Abdominal Exam GI & Abdominal Exam: Soft. absent: Tenderness Assessment and Plan - Assessment and Plan (Free Text) Plan: Assessment Septic shock with VDRF due to colitis and pancreatitis with possible biliary tract disease history of DVT asthma Plan continue zosyn day 2; blood cx are negative so far follow up plan for HIDA scan to rule out cholecystitis GI and surgery following
[2018-07-22] MEDS: Albuterol-Ipratrop 3 mg / 0.5 (3 ml) UD IH SCH (20:37)
[2018-07-23] MEDS: Fentanyl 1000mcg/100ml NS 1,000 MCG/100 ML BAG IV PRN ×2 (01:26→10:50)
[2018-07-23] MEDS: Lactated Ringer's 1,000 ML IV SCH ×3 (01:29→21:31)
[2018-07-23] MEDS: Albuterol-Ipratrop 3 mg / 0.5 (3 ml) UD IH SCH ×4 (02:38→19:33)
[2018-07-23] MEDS: Piperacillin/Tazobact 3.375 gm 100 ML IVPB SCH ×3 (06:47→21:39)
[2018-07-23 06:50] LABS: ARTERIAL BLOOD GAS HCO3 20.1 mmol/L (21-28); ARTERIAL BLOOD GAS O2 SAT 99.4 % (95-98); ARTERIAL BLOOD GAS PCO2 27 mm/Hg (35-45); ARTERIAL BLOOD GAS PH 7.48 (7.35-7.45); ARTERIAL BLOOD GAS TCO2 20.9 mmol.L (22-28)
--- NOTE | 2018-07-23 07:11 | PN ---
DATE: 07/23/2018 SUBJECTIVE: The patient is seen early this morning in the ICU 128, bed 3. The patient remains intubated on ventilator and she is on a ventilator. She had an uneventful night. There have been no fevers documented. PHYSICAL EXAMINATION: VITAL SIGNS: Temperature is 97, blood pressure is 150/100, respiratory rate is on the vent, heart rate of 60. Examination of HEENT is unremarkable. NECK: Supple. LUNGS: Have decreased breath sounds. HEART: Normal S1, S2. ABDOMEN: Soft. LABORATORY EXAMINATION: Reveals the patient's white count of 12,300, hemoglobin of 9, platelets of 115. Coagulation is noted. Chemistries reveal BUN of 27, creatinine of 1.1. Urinalysis is noted. Toxicology is noted. HIV is negative. Microbiology reveals the blood cultures are no growth. Urine cultures, no growth. Nares MRSA is negative. The patient did have a chest x-ray this morning, the results are pending. ASSESSMENT AND PLAN: This is a 57-year-old female who was admitted who was seen earlier today in 128, bed 3, with septic shock with vent-dependent respiratory failure secondary to colitis and pancreatitis, biliary origin, history of deep venous thrombosis and asthma, day number 3 of Zosyn. Review of orders reveals the Zosyn is active. Dr. Crow Estrada's progress note is reviewed. The patient did have an MRI of the head, which revealed no infarct.. Further GI and surgical intervention. Ashkan Bah MD
[2018-07-23 08:04] LABS: HEMOGLOBIN 10.2 g/dL (12.0-16.0); RBC 3.1 10^6/uL (3.5-6.1); WHITE BLOOD COUNT 9.9 10^3/uL (4.5-11.0)
[2018-07-23 08:05] LABS: MEAN CELL VOLUME 94.5 fl (80.0-105.0); MEAN CORPUSCULAR HEMOGLOBIN 32.9 pg (25.0-35.0); MEAN CORPUSCULAR HGB CONC 34.8 g/dl (31.0-37.0); MEAN PLATELET VOLUME 13.2 fl (7.0-11.0); RED CELL DISTRIBUTION WIDTH 16.8 % (11.5-14.5)
[2018-07-23 08:36] LABS: ALB/GLOB RATIO 0.9 (1.1-1.8); ALBUMIN 2.1 g/dL (3.0-4.8); ALT/SGPT 35 U/L (7-56); AST/SGOT 37 U/L (14-36); BLOOD UREA NITROGEN 26 mg/dL (7-21); CALCIUM 6.9 mg/dL (8.4-10.5); GFR NON-AFRICAN AMERICAN > 60
[2018-07-23] MEDS: levETIRAcetam 500mg IVPB 500 MG/100 ML BAG IV SCH (09:32)
[2018-07-23] MEDS: NOREPINEPHRINE BIT/0.9 % NACL 4 MG/250 ML BAG IV PRN (11:45)
--- NOTE | 2018-07-23 12:13 | CP.CCUPN ---
<Juan Carlos Qureshi - Last Filed: 07/23/18 12:15> CCU Subjective - Physician Review Subjective (Free Text): Juan Carlos Qureshi, PGY1 ICU Progress Note for Dr. Dover Patient was seen and examined at bedside this morning. Patient currently on levophed at a rate of 3 mcg/min. She was also on fentanyl at a rate of 100 and propofol at a rate of 20. ET tube, vazquez, and R-IJ in place. Initially on PRVC 400/6/5/50%. Patient is awake, alert, and following commands. She is anxious. Vital signs stable overnight and during time of interview. No adverse overnight events. Family members present at bedside and were updated in regards to patient's prognosis. No further episodes of bleeding from nares/mouth. ROS unable to be obtained since patient is still intubated. CCU Objective - Vital Signs / Intake & Output Vital Signs (Last 4 hours): Vital Signs Pulse BP Pulse Ox 07/23/18 11:00 104/56 L 07/23/18 10:59 82 07/23/18 10:45 98/59 L 07/23/18 10:44 96 H 07/23/18 10:40 86 07/23/18 10:31 109/66 07/23/18 10:30 99 H 07/23/18 10:20 71 07/23/18 10:15 99/55 L 07/23/18 10:14 76 07/23/18 10:00 57 L 77/46 L 99 07/23/18 09:45 72 94/66 L 99 07/23/18 09:40 79 99 07/23/18 09:30 78 97/61 L 99 07/23/18 09:20 71 98 07/23/18 09:15 88 133/85 97 07/23/18 09:00 97 H 134/80 97 07/23/18 08:46 71 107/73 97 07/23/18 08:40 100 H 98 07/23/18 08:30 98 H 105/66 99 07/23/18 08:20 63 99 07/23/18 08:15 89 118/70 99 Intake and Output (Last 8hrs): Intake & Output 07/22/18 07/23/18 07/23/18 22:59 06:59 14:59 Intake Total 1425.2 1451.8 367 Output Total 200 300 Balance 1225.2 1151.8 367 Weight 60.555 kg Intake: IV 1410.2 1451.8 367 Right Internal Jugular 1109 1340 Oral 15 Output: Urine 200 300 2-way Urethral 200 300 - Physical Exam Head: Positive for: Other (Bruising on the right scalp) Pupils: Positive for: Pinpoint Mouth: Positive for: Dry, Other (ET tube and OG tube in place. ) Neck: Positive for: Other (R-IJ in place) Respiratory/Chest: Positive for: Clear to Auscultation. Negative for: Respiratory Distress, Wheezes, Rales, Retracting, Rhonchi Cardiovascular: Positive for: Normal S1, S2, Peripheal Pulses Present Abdomen: Positive for: Tenderness (Diffuse tenderness to palpation). Negative for: Distention, Peritoneal Signs, Guarding, Mass/Organomegaly Upper Extremity: Positive for: NORMAL PULSES, Other (Decreased weakness of the upper extremities - unchanged from previous encounter). Negative for: Cyanosis, Edema Lower Extremity: Positive for: NORMAL PULSES, Other (Bilateral lower extremity weakness ). Negative for: Edema, CALF TENDERNESS Skin: Positive for: Warm, Dry, Other (Bruising on the scalp, right thoracic region, sacrum, lateral maleoli, and bilateral knees (w/ swelling)) Psychiatric: Positive for: Alert. Negative for: Oriented x 3 (intubated) - Medications Active Medications: Active Medications Generic Name Dose Route Start Last Admin Trade Name Freq PRN Reason Stop Dose Admin Albuterol/Ipratropium 3 ml 07/22/18 14:00 07/23/18 07:48 Duoneb 3 Mg/0.5 Mg (3 Ml) Ud IH 3 ml [id number] MELY Administration Aspirin 325 mg 07/21/18 10:00 07/23/18 09:31 Aspirin PO 325 mg DAILY MLEY Administration Hydrocortisone Sodium Succinate 50 mg 07/21/18 09:45 07/23/18 09:31 Solu-Cortef IVP 50 mg Q6H MELY Administration NOREPINEPHRINE BIT/0.9 % NACL 4 mg in 250 mls @ 15 mls/hr 07/20/18 15:26 07/23/18 11:45 Levophed 4 Mg/ 250 Ml Ns Premixed IV 4 mcg/min .[id number] PRN 15 mls/hr TITRATE PER MD ORDER Administration Protocol 4 MCG/MIN Heparin Sodium/Sodium Chloride 25,000 units in 250 mls @ 7.348 mls/hr 07/20/18 17:14 07/21/18 12:30 Heparin 10428 Units/250ml 1/2 Normal Saline IV 12 units/kg/hr .Q24H PRN 4.899 mls/hr ADJUST RATE PER PROTOCOL Titration Protocol 18 UNITS/KG/HR Fentanyl Citrate 1,000 mcg in 100 mls @ 5 mls/hr 07/21/18 13:01 07/23/18 10:50 Fentanyl Citrate/Sodium Chloride 1 Mg/100 Ml IV 100 mcg/hr .Q20H PRN 10 mls/hr TITRATE PER MD ORDER Administration Protocol 50 MCG/HR Piperacillin Sod/Tazobactam Sod 100 mls @ 25 mls/hr 07/22/18 11:00 07/23/18 10:54 Zosyn 3.375 In Ns 100ml IVPB 25 mls/hr Q8H MELY Administration Protocol Propofol 1,000 mg in 100 mls @ 1.225 mls/hr 07/22/18 10:46 07/23/18 11:00 Diprivan IV Infused .Q24H PRN Titration TITRATE PER MD ORDER Protocol 5 MCG/KG/MIN Lactated Ringer's 1,000 mls @ 75 mls/hr 07/22/18 11:00 07/23/18 01:29 Lactated Ringer's IV 75 mls/hr .[id number] MELY Administration Potassium Chloride 20 meq in 100 mls @ 50 mls/hr 07/23/18 11:30 07/23/18 11:39 Potassium Chloride 20 Meq/100 Ml IVPB 07/23/18 15:29 50 mls/hr Q2H MELY Administration Pantoprazole Sodium 40 mg 07/20/18 22:00 07/23/18 09:31 Protonix Inj IVP 40 mg Q12 MELY Administration - Patient Studies Lab Studies: Microbiology Studies 07/21/18 06:00 Urine Culture - Final Urine No Growth (<1,000 CFU/ML) 07/20/18 16:01 Blood Culture - Preliminary Blood-Venous NO GROWTH AFTER 48 HOURS 07/20/18 12:08 Blood Culture - Preliminary Blood-Venous NO GROWTH AFTER 48 HOURS 07/20/18 22:17 MRSA Culture (Admit) - Final Naris MRSA NOT DETECTED Lab Studies 07/23/18 07/23/18 07/23/18 Range/Units 10:04 09:15 07:00 WBC 9.9 (4.5-11.0) 10^3/uL RBC 3.10 L (3.5-6.1) 10^6/uL Hgb 10.2 L (12.0-16.0) g/dL Hct 29.3 L (36.0-48.0) % MCV 94.5 (80.0-105.0) fl MCH 32.9 (25.0-35.0) pg MCHC 34.8 (31.0-37.0) g/dl RDW 16.8 H (11.5-14.5) % Plt Count 95 L (120.0-450.0) 10^3/uL MPV 13.2 H (7.0-11.0) fl pCO2 (35-45) mm/Hg pO2 (80-100) mm/Hg HCO3 (21-28) mmol/L ABG pH (7.35-7.45) ABG Total CO2 (22-28) mmol.L ABG O2 Saturation (95-98) % ABG Base Excess (-2.0-3.0) mmol/L ABG Potassium (3.6-5.2) mmol/L Sodium (132-148) mmol/L Chloride (98-107) mmol/L Glucose (65-105) mg/dl Lactate (0.7-2.1) mmol/L FiO2 % Potassium (3.6-5.0) mmol/L Carbon Dioxide (21-33) mmol/L Anion Gap (10-20) BUN (7-21) mg/dL Creatinine (0.7-1.2) mg/dl Est GFR ( Amer) Est GFR (Non-Af Amer) POC Glucose (mg/dL) 206 H (65-110) mg/dL Random Glucose (70-110) mg/dL Calcium (8.4-10.5) mg/dL Phosphorus (2.5-4.5) mg/dL Magnesium (1.7-2.2) mg/dL Total Bilirubin (0.2-1.3) mg/dL AST (14-36) U/L ALT (7-56) U/L Alkaline Phosphatase (38-126) U/L Total Protein (5.8-8.3) g/dL Albumin (3.0-4.8) g/dL Globulin gm/dL Albumin/Globulin Ratio (1.1-1.8) Lipase 190 (23-300) U/L Arterial Blood Potassium (3.6-5.2) mmol/L 07/23/18 07/23/18 07/23/18 Range/Units 07:00 06:50 06:30 WBC (4.5-11.0) 10^3/uL RBC (3.5-6.1) 10^6/uL Hgb (12.0-16.0) g/dL Hct (36.0-48.0) % MCV (80.0-105.0) fl MCH (25.0-35.0) pg MCHC (31.0-37.0) g/dl RDW (11.5-14.5) % Plt Count (120.0-450.0) 10^3/uL MPV (7.0-11.0) fl pCO2 27 L (35-45) mm/Hg pO2 91.0 (80-100) mm/Hg HCO3 20.1 L (21-28) mmol/L ABG pH 7.48 H (7.35-7.45) ABG Total CO2 20.9 L (22-28) mmol.L ABG O2 Saturation 99.4 H (95-98) % ABG Base Excess -2.0 (-2.0-3.0) mmol/L ABG Potassium 1.9 L* (3.6-5.2) mmol/L Sodium 142 149.0 H (132-148) mmol/L Chloride 109 H 120.0 H (98-107) mmol/L Glucose 119 H (65-105) mg/dl Lactate 1.0 (0.7-2.1) mmol/L FiO2 50.0 % Potassium 3.0 L (3.6-5.0) mmol/L Carbon Dioxide 31 (21-33) mmol/L Anion Gap 5 L (10-20) BUN 26 H (7-21) mg/dL Creatinine 0.9 (0.7-1.2) mg/dl Est GFR ( Amer) > 60 Est GFR (Non-Af Amer) > 60 POC Glucose (mg/dL) 159 H (65-110) mg/dL Random Glucose 163 H (70-110) mg/dL Calcium 6.9 L* (8.4-10.5) mg/dL Phosphorus 2.2 L (2.5-4.5) mg/dL Magnesium 1.9 (1.7-2.2) mg/dL Total Bilirubin 0.6 (0.2-1.3) mg/dL AST 37 H (14-36) U/L ALT 35 (7-56) U/L Alkaline Phosphatase 62 (38-126) U/L Total Protein 4.4 L (5.8-8.3) g/dL Albumin 2.1 L (3.0-4.8) g/dL Globulin 2.4 gm/dL Albumin/Globulin Ratio 0.9 L (1.1-1.8) Lipase (23-300) U/L Arterial Blood Potassium 1.9 L* (3.6-5.2) mmol/L 07/23/18 07/22/18 07/22/18 Range/Units 04:13 21:01 16:51 WBC (4.5-11.0) 10^3/uL RBC (3.5-6.1) 10^6/uL Hgb (12.0-16.0) g/dL Hct (36.0-48.0) % MCV (80.0-105.0) fl MCH (25.0-35.0) pg MCHC (31.0-37.0) g/dl RDW (11.5-14.5) % Plt Count (120.0-450.0) 10^3/uL MPV (7.0-11.0) fl pCO2 (35-45) mm/Hg pO2 (80-100) mm/Hg HCO3 (21-28) mmol/L ABG pH (7.35-7.45) ABG Total CO2 (22-28) mmol.L ABG O2 Saturation (95-98) % ABG Base Excess (-2.0-3.0) mmol/L ABG Potassium (3.6-5.2) mmol/L Sodium (132-148) mmol/L Chloride (98-107) mmol/L Glucose (65-105) mg/dl Lactate (0.7-2.1) mmol/L FiO2 % Potassium (3.6-5.0) mmol/L Carbon Dioxide (21-33) mmol/L Anion Gap (10-20) BUN (7-21) mg/dL Creatinine (0.7-1.2) mg/dl Est GFR ( Amer) Est GFR (Non-Af Amer) POC Glucose (mg/dL) 132 H 151 H 130 H (65-110) mg/dL Random Glucose (70-110) mg/dL Calcium (8.4-10.5) mg/dL Phosphorus (2.5-4.5) mg/dL Magnesium (1.7-2.2) mg/dL Total Bilirubin (0.2-1.3) mg/dL AST (14-36) U/L ALT (7-56) U/L Alkaline Phosphatase (38-126) U/L Total Protein (5.8-8.3) g/dL Albumin (3.0-4.8) g/dL Globulin gm/dL Albumin/Globulin Ratio (1.1-1.8) Lipase (23-300) U/L Arterial Blood Potassium (3.6-5.2) mmol/L 07/22/ Range/Units 12:55 WBC (4.5-11.0) 10^3/uL RBC (3.5-6.1) 10^6/uL Hgb (12.0-16.0) g/dL Hct (36.0-48.0) % MCV (80.0-105.0) fl MCH (25.0-35.0) pg MCHC (31.0-37.0) g/dl RDW (11.5-14.5) % Plt Count (120.0-450.0) 10^3/uL MPV (7.0-11.0) fl pCO2 (35-45) mm/Hg pO2 (80-100) mm/Hg HCO3 (21-28) mmol/L ABG pH (7.35-7.45) ABG Total CO2 (22-28) mmol.L ABG O2 Saturation (95-98) % ABG Base Excess (-2.0-3.0) mmol/L ABG Potassium (3.6-5.2) mmol/L Sodium (132-148) mmol/L Chloride (98-107) mmol/L Glucose (65-105) mg/dl Lactate (0.7-2.1) mmol/L FiO2 % Potassium (3.6-5.0) mmol/L Carbon Dioxide (21-33) mmol/L Anion Gap (10-20) BUN (7-21) mg/dL Creatinine (0.7-1.2) mg/dl Est GFR ( Amer) Est GFR (Non-Af Amer) POC Glucose (mg/dL) 123 H (65-110) mg/dL Random Glucose (70-110) mg/dL Calcium (8.4-10.5) mg/dL Phosphorus (2.5-4.5) mg/dL Magnesium (1.7-2.2) mg/dL Total Bilirubin (0.2-1.3) mg/dL AST (14-36) U/L ALT (7-56) U/L Alkaline Phosphatase (38-126) U/L Total Protein (5.8-8.3) g/dL Albumin (3.0-4.8) g/dL Globulin gm/dL Albumin/Globulin Ratio (1.1-1.8) Lipase (23-300) U/L Arterial Blood Potassium (3.6-5.2) mmol/L Laboratory Results - last 24 hr 07/22/18 07/22/18 07/22/18 12:55 16:51 21:01 WBC RBC Hgb Hct MCV MCH MCHC RDW Plt Count MPV pCO2 pO2 HCO3 ABG pH ABG Total CO2 ABG O2 Saturation ABG Base Excess ABG Potassium Sodium Chloride Glucose Lactate FiO2 Potassium Carbon Dioxide Anion Gap BUN Creatinine Est GFR ( Amer) Est GFR (Non-Af Amer) POC Glucose (mg/dL) 123 H 130 H 151 H Random Glucose Calcium Phosphorus Magnesium Total Bilirubin AST ALT Alkaline Phosphatase Total Protein Albumin Globulin Albumin/Globulin Ratio Lipase Arterial Blood Potassium 07/23/18 07/23/18 07/23/18 04:13 06:30 06:50 WBC RBC Hgb Hct MCV MCH MCHC RDW Plt Count MPV pCO2 27 L pO2 91.0 HCO3 20.1 L ABG pH 7.48 H ABG Total CO2 20.9 L ABG O2 Saturation 99.4 H ABG Base Excess -2.0 ABG Potassium 1.9 L* Sodium 149.0 H Chloride 120.0 H Glucose 119 H Lactate 1.0 FiO2 50.0 Potassium Carbon Dioxide Anion Gap BUN Creatinine Est GFR ( Amer) Est GFR (Non-Af Amer) POC Glucose (mg/dL) 132 H 159 H Random Glucose Calcium Phosphorus Magnesium Total Bilirubin AST ALT Alkaline Phosphatase Total Protein Albumin Globulin Albumin/Globulin Ratio Lipase Arterial Blood Potassium 1.9 L* 07/23/18 07/23/18 07/23/18 07:00 07:00 09:15 WBC 9.9 RBC 3.10 L Hgb 10.2 L Hct 29.3 L MCV 94.5 MCH 32.9 MCHC 34.8 RDW 16.8 H Plt Count 95 L MPV 13.2 H pCO2 pO2 HCO3 ABG pH ABG Total CO2 ABG O2 Saturation ABG Base Excess ABG Potassium Sodium 142 Chloride 109 H Glucose Lactate FiO2 Potassium 3.0 L Carbon Dioxide 31 Anion Gap 5 L BUN 26 H Creatinine 0.9 Est GFR ( Amer) > 60 Est GFR (Non-Af Amer) > 60 POC Glucose (mg/dL) Random Glucose 163 H Calcium 6.9 L* Phosphorus 2.2 L Magnesium 1.9 Total Bilirubin 0.6 AST 37 H ALT 35 Alkaline Phosphatase 62 Total Protein 4.4 L Albumin 2.1 L Globulin 2.4 Albumin/Globulin Ratio 0.9 L Lipase 190 Arterial Blood Potassium 07/23/18 10:04 WBC RBC Hgb Hct MCV MCH MCHC RDW Plt Count MPV pCO2 pO2 HCO3 ABG pH ABG Total CO2 ABG O2 Saturation ABG Base Excess ABG Potassium Sodium Chloride Glucose Lactate FiO2 Potassium Carbon Dioxide Anion Gap BUN Creatinine Est GFR ( Amer) Est GFR (Non-Af Amer) POC Glucose (mg/dL) 206 H Random Glucose Calcium Phosphorus Magnesium Total Bilirubin AST ALT Alkaline Phosphatase Total Protein Albumin Globulin Albumin/Globulin Ratio Lipase Arterial Blood Potassium Fingerstick Blood Sugar Results: 206 Review of Systems - Review of Systems Systems not reviewed;Unavailable: Intubated Critical Care Progress Note - Ventilator Checklist Head of Bed 30 Degrees: Yes Daily Sedation Vacation: Yes Daily Assessment of Readiness to Wean: Yes Daily Spontaneous Breathing Trial: Yes PUD Prophalyxis: Yes DVT Prophylaxis: Yes Oral Care with Chlorhexidine Gluconate {CHG}: Yes - Vent Settings MODE:: PRVC TIDAL VOLUME:: 400 RESP RATE:: 16 FIO2:: 50 PEEP:: 5 - Extremities/Vascular Does the Patient have a Central Venous Catheter?: Yes Insertion Site: Internal Jugular Vein Does the Patient need a Central Venous Catheter?: Yes Does the Patient have a Vazquez Catheter?: Yes Does the Patient need a Vazquez Catheter?: Yes Catheter Insertion Criteria: Need for accurate measurement of output in critically ill patient - Restraints Justification for Restraints: High risk for self extubation - Prophylaxis GI Prophylaxis GI: PPI - Prophylaxis DVT Prophylaxis DVT: SCDs - Nutrition Nutrition: Nutrition Category Date Time Status NPO Diet [DIET] Diets 07/20/18 Breakfast Ordered Assessment/Plan - Assessment and Plan (Free Text) Assessment: Patient is a 57 y/o F with PMHx asthma, 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 Patient was found to be h ypothermic on presentation and intubated as a result of unresponsiveness. Patient was also found to be in shock during presentation. ICU was consulted for management of distributive shock and severe hypothermia, which has improved. Plan: Neuro: - Patient is alert/awake and following commands. Held propofol. - c/w fentanyl for agitation/anxiety - Severe Hypothermia - resolved - MRI brain negative for stroke and EEG negative for seizures - keppra was discontinued - Neurology consulted. Recs appreciated. Cardio: - Distributive Shock with Multiorgan Dysfunction - improved - c/w low dose levophed, fluids, and stress dose steroids for blood pressure support - Echo (07/21): EF 65%. No PFO. - Maintain MAP > 65 - Repeat EKG showed normal QTc interval and normal sinus rhythm; admission EKG with prolonged QTc was likely due to her hypothermia Pulm: - Possible extubation today; tube feeds and propofol held - CXR (07/23): unchanged from previous imaging - Vent management: HoB > 35 degrees, oral hygiene, suction, daily weaning trials, DVT/PE ppx - Maintain SaO2 > 92% GI: - Consider Pancreatic Shock in the setting of pancreatitis - No further recommendations from Surgery and GI - CT A/P (07/20): pancreatitis - GI and Surgery were consulted, recs appreciated - Choledocholithiasis and Elevated triglycerides are likely not the cause for pancreatitis; consider EtOH abuse - Lipase markedly elevated on admission; >5000. Repeat Lipase is negative. - OG tube placed. On tube feeds: Jevity diet with free water flushes - GI ppx with PTX Renal: - AUBREY is improved - K was 3.0 - repletion with 20meq K-riders x2 - Oligouria - continue to monitor strict Ins/Outs; vazquez catheter is in place - Nephrology consulted. Recs appreciated ID: - c/w zosyn (Day #3) as per ID recs - leukocytosis resolved - ID consulted. 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 Case was discussed and reviewed with Attending Physician, Dr. Dover <Jonny Dover - Last Filed: 07/23/18 14:47> CCU Objective - Vital Signs / Intake & Output Vital Signs (Last 4 hours): Vital Signs Pulse BP 07/23/18 11:00 104/56 L 07/23/18 10:59 82 Intake and Output (Last 8hrs): Intake & Output 07/22/18 07/23/18 07/23/18 22:59 06:59 14:59 Intake Total 1425.2 1451.8 367 Output Total 200 300 Balance 1225.2 1151.8 367 Weight 60.555 kg Intake: IV 1410.2 1451.8 367 Right Internal Jugular 1109 1340 Oral 15 Output: Urine 200 300 2-way Urethral 200 300 - Medications Active Medications: Active Medications Generic Name Dose Route Start Last Admin Trade Name Freq PRN Reason Stop Dose Admin Albuterol/Ipratropium 3 ml 07/22/18 14:00 07/23/18 14:05 Duoneb 3 Mg/0.5 Mg (3 Ml) Ud IH 3 ml [id number] MELY Administration Aspirin 325 mg 07/21/18 10:00 07/23/18 09:31 Aspirin PO 325 mg DAILY MELY Administration Hydrocortisone Sodium Succinate 50 mg 07/21/18 09:45 07/23/18 09:31 Solu-Cortef IVP 50 mg Q6H MELY Administration NOREPINEPHRINE BIT/0.9 % NACL 4 mg in 250 mls @ 15 mls/hr 07/20/18 15:26 07/23/18 11:45 Levophed 4 Mg/ 250 Ml Ns Premixed IV 4 mcg/min .[id number] PRN 15 mls/hr TITRATE PER MD ORDER Administration Protocol 4 MCG/MIN Heparin Sodium/Sodium Chloride 25,000 units in 250 mls @ 7.348 mls/hr 07/20/18 17:14 07/21/18 12:30 Heparin 99332 Units/250ml 1/2 Normal Saline IV 12 units/kg/hr .Q24H PRN 4.899 mls/hr ADJUST RATE PER PROTOCOL Titration Protocol 18 UNITS/KG/HR Fentanyl Citrate 1,000 mcg in 100 mls @ 5 mls/hr 07/21/18 13:01 07/23/18 10:50 Fentanyl Citrate/Sodium Chloride 1 Mg/100 Ml IV 100 mcg/hr .Q20H PRN 10 mls/hr TITRATE PER MD ORDER Administration Protocol 50 MCG/HR Piperacillin Sod/Tazobactam Sod 100 mls @ 25 mls/hr 07/22/18 11:00 07/23/18 10:54 Zosyn 3.375 In Ns 100ml IVPB 25 mls/hr Q8H MELY Administration Protocol Propofol 1,000 mg in 100 mls @ 1.225 mls/hr 07/22/18 10:46 07/23/18 11:00 Diprivan IV Infused .Q24H PRN Titration TITRATE PER MD ORDER Protocol 5 MCG/KG/MIN Lactated Ringer's 1,000 mls @ 75 mls/hr 07/22/18 11:00 07/23/18 01:29 Lactated Ringer's IV 75 mls/hr .[id number] MELY Administration Potassium Chloride 20 meq in 100 mls @ 50 mls/hr 07/23/18 11:30 07/23/18 13:31 Potassium Chloride 20 Meq/100 Ml IVPB 07/23/18 15:29 50 mls/hr Q2H MELY Administration Pantoprazole Sodium 40 mg 07/20/18 22:00 07/23/18 09:31 Protonix Inj IVP 40 mg Q12 MELY Administration - Patient Studies Lab Studies: Microbiology Studies 07/20/18 12:08 Blood Culture - Preliminary Blood-Venous NO GROWTH AFTER 3 DAYS 07/21/18 06:00 Urine Culture - Final Urine No Growth (<1,000 CFU/ML) 07/20/18 16:01 Blood Culture - Preliminary Blood-Venous NO GROWTH AFTER 48 HOURS 07/20/18 22:17 MRSA Culture (Admit) - Final Naris MRSA NOT DETECTED Lab Studies 07/23/18 07/23/18 07/23/18 Range/Units 10:04 09:15 07:00 WBC 9.9 (4.5-11.0) 10^3/uL RBC 3.10 L (3.5-6.1) 10^6/uL Hgb 10.2 L (12.0-16.0) g/dL Hct 29.3 L (36.0-48.0) % MCV 94.5 (80.0-105.0) fl MCH 32.9 (25.0-35.0) pg MCHC 34.8 (31.0-37.0) g/dl RDW 16.8 H (11.5-14.5) % Plt Count 95 L (120.0-450.0) 10^3/uL MPV 13.2 H (7.0-11.0) fl pCO2 (35-45) mm/Hg pO2 (80-100) mm/Hg HCO3 (21-28) mmol/L ABG pH (7.35-7.45) ABG Total CO2 (22-28) mmol.L ABG O2 Saturation (95-98) % ABG Base Excess (-2.0-3.0) mmol/L ABG Potassium (3.6-5.2) mmol/L Sodium (132-148) mmol/L Chloride (98-107) mmol/L Glucose (65-105) mg/dl Lactate (0.7-2.1) mmol/L FiO2 % Potassium (3.6-5.0) mmol/L Carbon Dioxide (21-33) mmol/L Anion Gap (10-20) BUN (7-21) mg/dL Creatinine (0.7-1.2) mg/dl Est GFR ( Amer) Est GFR (Non-Af Amer) POC Glucose (mg/dL) 206 H (65-110) mg/dL Random Glucose (70-110) mg/dL Calcium (8.4-10.5) mg/dL Phosphorus (2.5-4.5) mg/dL Magnesium (1.7-2.2) mg/dL Total Bilirubin (0.2-1.3) mg/dL AST (14-36) U/L ALT (7-56) U/L Alkaline Phosphatase (38-126) U/L Total Protein (5.8-8.3) g/dL Albumin (3.0-4.8) g/dL Globulin gm/dL Albumin/Globulin Ratio (1.1-1.8) Lipase 190 (23-300) U/L Arterial Blood Potassium (3.6-5.2) mmol/L 07/23/18 07/23/18 07/23/18 Range/Units 07:00 06:50 06:30 WBC (4.5-11.0) 10^3/uL RBC (3.5-6.1) 10^6/uL Hgb (12.0-16.0) g/dL Hct (36.0-48.0) % MCV (80.0-105.0) fl MCH (25.0-35.0) pg MCHC (31.0-37.0) g/dl RDW (11.5-14.5) % Plt Count (120.0-450.0) 10^3/uL MPV (7.0-11.0) fl pCO2 27 L (35-45) mm/Hg pO2 91.0 (80-100) mm/Hg HCO3 20.1 L (21-28) mmol/L ABG pH 7.48 H (7.35-7.45) ABG Total CO2 20.9 L (22-28) mmol.L ABG O2 Saturation 99.4 H (95-98) % ABG Base Excess -2.0 (-2.0-3.0) mmol/L ABG Potassium 1.9 L* (3.6-5.2) mmol/L Sodium 142 149.0 H (132-148) mmol/L Chloride 109 H 120.0 H (98-107) mmol/L Glucose 119 H (65-105) mg/dl Lactate 1.0 (0.7-2.1) mmol/L FiO2 50.0 % Potassium 3.0 L (3.6-5.0) mmol/L Carbon Dioxide 31 (21-33) mmol/L Anion Gap 5 L (10-20) BUN 26 H (7-21) mg/dL Creatinine 0.9 (0.7-1.2) mg/dl Est GFR ( Amer) > 60 Est GFR (Non-Af Amer) > 60 POC Glucose (mg/dL) 159 H (65-110) mg/dL Random Glucose 163 H (70-110) mg/dL Calcium 6.9 L* (8.4-10.5) mg/dL Phosphorus 2.2 L (2.5-4.5) mg/dL Magnesium 1.9 (1.7-2.2) mg/dL Total Bilirubin 0.6 (0.2-1.3) mg/dL AST 37 H (14-36) U/L ALT 35 (7-56) U/L Alkaline Phosphatase 62 (38-126) U/L Total Protein 4.4 L (5.8-8.3) g/dL Albumin 2.1 L (3.0-4.8) g/dL Globulin 2.4 gm/dL Albumin/Globulin Ratio 0.9 L (1.1-1.8) Lipase (23-300) U/L Arterial Blood Potassium 1.9 L* (3.6-5.2) mmol/L 07/23/18 07/22/18 07/22/18 Range/Units 04:13 21:01 16:51 WBC (4.5-11.0) 10^3/uL RBC (3.5-6.1) 10^6/uL Hgb (12.0-16.0) g/dL Hct (36.0-48.0) % MCV (80.0-105.0) fl MCH (25.0-35.0) pg MCHC (31.0-37.0) g/dl RDW (11.5-14.5) % Plt Count (120.0-450.0) 10^3/uL MPV (7.0-11.0) fl pCO2 (35-45) mm/Hg pO2 (80-100) mm/Hg HCO3 (21-28) mmol/L ABG pH (7.35-7.45) ABG Total CO2 (22-28) mmol.L ABG O2 Saturation (95-98) % ABG Base Excess (-2.0-3.0) mmol/L ABG Potassium (3.6-5.2) mmol/L Sodium (132-148) mmol/L Chloride (98-107) mmol/L Glucose (65-105) mg/dl Lactate (0.7-2.1) mmol/L FiO2 % Potassium (3.6-5.0) mmol/L Carbon Dioxide (21-33) mmol/L Anion Gap (10-20) BUN (7-21) mg/dL Creatinine (0.7-1.2) mg/dl Est GFR ( Amer) Est GFR (Non-Af Amer) POC Glucose (mg/dL) 132 H 151 H 130 H (65-110) mg/dL Random Glucose (70-110) mg/dL Calcium (8.4-10.5) mg/dL Phosphorus (2.5-4.5) mg/dL Magnesium (1.7-2.2) mg/dL Total Bilirubin (0.2-1.3) mg/dL AST (14-36) U/L ALT (7-56) U/L Alkaline Phosphatase (38-126) U/L Total Protein (5.8-8.3) g/dL Albumin (3.0-4.8) g/dL Globulin gm/dL Albumin/Globulin Ratio (1.1-1.8) Lipase (23-300) U/L Arterial Blood Potassium (3.6-5.2) mmol/L 07/22/18 Range/Units 12:55 WBC (4.5-11.0) 10^3/uL RBC (3.5-6.1) 10^6/uL Hgb (12.0-16.0) g/dL Hct (36.0-48.0) % MCV (80.0-105.0) fl MCH (25.0-35.0) pg MCHC (31.0-37.0) g/dl RDW (11.5-14.5) % Plt Count (120.0-450.0) 10^3/uL MPV (7.0-11.0) fl pCO2 (35-45) mm/Hg pO2 (80-100) mm/Hg HCO3 (21-28) mmol/L ABG pH (7.35-7.45) ABG Total CO2 (22-28) mmol.L ABG O2 Saturation (95-98) % ABG Base Excess (-2.0-3.0) mmol/L ABG Potassium (3.6-5.2) mmol/L Sodium (132-148) mmol/L Chloride (98-107) mmol/L Glucose (65-105) mg/dl Lactate (0.7-2.1) mmol/L FiO2 % Potassium (3.6-5.0) mmol/L Carbon Dioxide (21-33) mmol/L Anion Gap (10-20) BUN (7-21) mg/dL Creatinine (0.7-1.2) mg/dl Est GFR ( Amer) Est GFR (Non-Af Amer) POC Glucose (mg/dL) 123 H (65-110) mg/dL Random Glucose (70-110) mg/dL Calcium (8.4-10.5) mg/dL Phosphorus (2.5-4.5) mg/dL Magnesium (1.7-2.2) mg/dL Total Bilirubin (0.2-1.3) mg/dL AST (14-36) U/L ALT (7-56) U/L Alkaline Phosphatase (38-126) U/L Total Protein (5.8-8.3) g/dL Albumin (3.0-4.8) g/dL Globulin gm/dL Albumin/Globulin Ratio (1.1-1.8) Lipase (23-300) U/L Arterial Blood Potassium (3.6-5.2) mmol/L Laboratory Results - last 24 hr 07/22/18 07/22/18 07/22/18 12:55 16:51 21:01 WBC RBC Hgb Hct MCV MCH MCHC RDW Plt Count MPV pCO2 pO2 HCO3 ABG pH ABG Total CO2 ABG O2 Saturation ABG Base Excess ABG Potassium Sodium Chloride Glucose Lactate FiO2 Potassium Carbon Dioxide Anion Gap BUN Creatinine Est GFR ( Amer) Est GFR (Non-Af Amer) POC Glucose (mg/dL) 123 H 130 H 151 H Random Glucose Calcium Phosphorus Magnesium Total Bilirubin AST ALT Alkaline Phosphatase Total Protein Albumin Globulin Albumin/Globulin Ratio Lipase Arterial Blood Potassium 07/23/18 07/23/18 07/23/18 04:13 06:30 06:50 WBC RBC Hgb Hct MCV MCH MCHC RDW Plt Count MPV pCO2 27 L pO2 91.0 HCO3 20.1 L ABG pH 7.48 H ABG Total CO2 20.9 L ABG O2 Saturation 99.4 H ABG Base Excess -2.0 ABG Potassium 1.9 L* Sodium 149.0 H Chloride 120.0 H Glucose 119 H Lactate 1.0 FiO2 50.0 Potassium Carbon Dioxide Anion Gap BUN Creatinine Est GFR ( Amer) Est GFR (Non-Af Amer) POC Glucose (mg/dL) 132 H 159 H Random Glucose Calcium Phosphorus Magnesium Total Bilirubin AST ALT Alkaline Phosphatase Total Protein Albumin Globulin Albumin/Globulin Ratio Lipase Arterial Blood Potassium 1.9 L* 07/23/18 07/23/18 07/23/18 07:00 07:00 09:15 WBC 9.9 RBC 3.10 L Hgb 10.2 L Hct 29.3 L MCV 94.5 MCH 32.9 MCHC 34.8 RDW 16.8 H Plt Count 95 L MPV 13.2 H pCO2 pO2 HCO3 ABG pH ABG Total CO2 ABG O2 Saturation ABG Base Excess ABG Potassium Sodium 142 Chloride 109 H Glucose Lactate FiO2 Potassium 3.0 L Carbon Dioxide 31 Anion Gap 5 L BUN 26 H Creatinine 0.9 Est GFR ( Amer) > 60 Est GFR (Non-Af Amer) > 60 POC Glucose (mg/dL) Random Glucose 163 H Calcium 6.9 L* Phosphorus 2.2 L Magnesium 1.9 Total Bilirubin 0.6 AST 37 H ALT 35 Alkaline Phosphatase 62 Total Protein 4.4 L Albumin 2.1 L Globulin 2.4 Albumin/Globulin Ratio 0.9 L Lipase 190 Arterial Blood Potassium 07/23/18 10:04 WBC RBC Hgb Hct MCV MCH MCHC RDW Plt Count MPV pCO2 pO2 HCO3 ABG pH ABG Total CO2 ABG O2 Saturation ABG Base Excess ABG Potassium Sodium Chloride Glucose Lactate FiO2 Potassium Carbon Dioxide Anion Gap BUN Creatinine Est GFR ( Amer) Est GFR (Non-Af Amer) POC Glucose (mg/dL) 206 H Random Glucose Calcium Phosphorus Magnesium Total Bilirubin AST ALT Alkaline Phosphatase Total Protein Albumin Globulin Albumin/Globulin Ratio Lipase Arterial Blood Potassium Critical Care Progress Note - Nutrition Nutrition: Nutrition Category Date Time Status NPO Diet [DIET] Diets 07/20/18 Breakfast Ordered Addendum Addendum: 07/23/18 14:46 MICU ATTENDING ADDENDUM: Patient seen and examined. Case discussed in round with housestaff. Agree with note above with the following additions/exception: This is a 57 y/o F with asthma, and DVT/PE this past Aug 2017 on coumadin at home found unresponsive. Family did not hear from her for 4 days and broke down the door and found her on the floor unresponsive. In the ED she was hypothermic and subsequentally intubated. Neuro workup has been negative thus far. CT and MRI do not show stroke. 2d Echo shows no PFO. EEG not suggestive of seizures. She is much more awake and alert now. -d/c keppra in lieu of neg EEG -change ASA to 81mg instead of 325 She remains intubated, will CPAP trial her today with plan to extubate Unclear etiology of her initially presentations. PE is possible given her hx. In addition, her DVT/PE was earlier in the year and we must decide whether she needs AC still. Will check lower ext doppler. If not DVT then will check CTA to ensure no PE. Abx as per ID AUBREY resolved; replace k still on pressors, will cont steroids for now PPI for GI PPX On hep drip for DVT pxx (and tx) FULL CODE Rest of care above Jonny Dover MD Pulmonary Critical Care and Sleep Medicine Critical Care Time: 31 mins
--- NOTE | 2018-07-23 13:15 | RAD ---
Date of service: 07/23/2018 HISTORY: intubated; PNA vs atelectasis COMPARISON: Comparison chest dated 07/22/2018 FINDINGS: In situ ETT, tip of which lies approximately 3.3 cm above rick. In situ feeding tube tip of which lies left upper abdomen. This probably should be advanced. No change right IJ central line with tip in the SVC. LUNGS: Left lower lobe opacity likely representing some combination of atelectasis and or infiltrate with moderate size left-sided effusion. Suspect minor right basilar atelectasis. PLEURA: The as above. No pneumothorax apparent. CARDIOVASCULAR: No aortic atherosclerotic calcification present. Normal cardiac size. No pulmonary vascular congestion. OSSEOUS STRUCTURES: No significant abnormalities. VISUALIZED UPPER ABDOMEN: Normal. OTHER FINDINGS: None. IMPRESSION: Support lines and tubes as above.. Left lower lobe opacity likely representing some combination of atelectasis/infiltrate and moderate-sized left-sided effusion. Minor right basilar atelectasis.
[2018-07-23] MEDS ORDERED: Dexmedetomidine 400mcg/100mL 400 MCG/100 ML BOTTLE IV PRN (17:09)
--- NOTE | 2018-07-23 22:19 | US ---
HISTORY: Leg pain and swelling. Evaluate for DVT PHYSICIAN(S): Rafael Bhatia MD. TECHNIQUE: Duplex sonography and color-flow Doppler with graded compression were used to evaluate the deep venous systems of both lower extremities. The exam is somewhat limited by edema FINDINGS: The visualized deep venous systems of both lower extremities are sonographically normal and compressible. Normal wave forms and augmentation are seen. There is no sonographic evidence for deep venous thrombosis in the visualized segments of both lower extremities. IMPRESSION: No sonographic evidence for deep venous thrombosis in the visualized segments of both lower extremities.
[2018-07-24] MEDS: Albuterol-Ipratrop 3 mg / 0.5 (3 ml) UD IH SCH ×4 (01:28→19:25)
[2018-07-24] MEDS ORDERED: Morphine 2 mg/ml ISec IVP ONE (01:43)
[2018-07-24] MEDS ORDERED: HYDROmorphone 1 mg/ml ISec IVP ONE (01:57)
[2018-07-24] MEDS: Piperacillin/Tazobact 3.375 gm 100 ML IVPB SCH ×3 (02:07→18:12)
[2018-07-24] MEDS ORDERED: HYDROmorphone 1 mg/ml ISec IVP STA (02:35)
[2018-07-24] MEDS: Lactated Ringer's 1,000 ML IV SCH ×2 (03:13→22:07)
[2018-07-24 05:43] LABS: ARTERIAL BLOOD GAS HCO3 26.8 mmol/L (21-28); ARTERIAL BLOOD GAS HEMOGLOBIN 10.9 g/dL (11.7-17.4); ARTERIAL BLOOD GAS O2 CAPACITY 15.3 mL/dl (16-24); ARTERIAL BLOOD GAS O2 CONTENT 15.2 ML/dl (15-23); ARTERIAL BLOOD GAS O2 SAT 99.4 % (95-98); ARTERIAL BLOOD GAS PCO2 36 mm/Hg (35-45); ARTERIAL BLOOD GAS PH 7.48 (7.35-7.45); ARTERIAL BLOOD GAS TCO2 27.9 mmol.L (22-28)
[2018-07-24 06:32] LABS: HEMOGLOBIN 9.4 g/dL (12.0-16.0); MEAN CELL VOLUME 94.9 fl (80.0-105.0); MEAN CORPUSCULAR HEMOGLOBIN 32.2 pg (25.0-35.0); MEAN CORPUSCULAR HGB CONC 33.9 g/dl (31.0-37.0); MEAN PLATELET VOLUME 11.5 fl (7.0-11.0); RBC 2.92 10^6/uL (3.5-6.1); RED CELL DISTRIBUTION WIDTH 16.6 % (11.5-14.5); WHITE BLOOD COUNT 12.7 10^3/uL (4.5-11.0)
[2018-07-24 06:35] LABS: ALB/GLOB RATIO 0.9 (1.1-1.8); ALBUMIN 2.3 g/dL (3.0-4.8); ALT/SGPT 34 U/L (7-56); AST/SGOT 35 U/L (14-36); BLOOD UREA NITROGEN 25 mg/dL (7-21); CALCIUM 7.5 mg/dL (8.4-10.5); GFR NON-AFRICAN AMERICAN > 60
--- NOTE | 2018-07-24 08:57 | CP.PCM.PN ---
<Zac Martin - Last Filed: 07/24/18 08:53> Subjective - Date & Time of Evaluation Date of Evaluation: 07/24/18 Time of Evaluation: 07:45 - Subjective Subjective: PGY-4 GI Fellow Prog Note Pt lying in bed when seen this AM. Remains intubated, but alert on vent, tracking. Remains on small amount of pressor support. Reportedly plans to attempt extubation later today. Unable to obtain ROS due to clinical condition Objective - Vital Signs/Intake and Output Vital Signs (last 24 hours): Temp Pulse Resp BP Pulse Ox 97.8 F 84 19 111/78 100 07/23/18 19:00 07/24/18 06:00 07/24/18 08:17 07/23/18 16:16 07/24/18 08:17 Intake and Output: 07/24/18 07/24/18 06:59 18:59 Intake Total 2316 Output Total 250 Balance 2066 - Medications Medications: Current Medications Albuterol/Ipratropium (Duoneb 3 Mg/0.5 Mg (3 Ml) Ud) 3 ml IH [id number] MELY Last Admin: 07/24/18 08:16 Dose: 3 ml Hydrocortisone Sodium Succinate (Solu-Cortef) 50 mg IVP Q6H MELY Last Admin: 07/23/18 21:36 Dose: 50 mg NOREPINEPHRINE BIT/0.9 % NACL (Levophed 4 Mg/ 250 Ml Ns Premixed) 4 mg in 250 mls @ 15 mls/hr IV .[id number] PRN; Protocol PRN Reason: TITRATE PER MD ORDER Last Admin: 07/23/18 11:45 Dose: 4 mcg/min, 15 mls/hr Heparin Sodium/Sodium Chloride (Heparin 67481 Units/250ml 1/2 Normal Saline) 25,000 units in 250 mls @ 7.348 mls/hr IV .Q24H PRN; Protocol PRN Reason: ADJUST RATE PER PROTOCOL Last Titration: 07/21/18 12:30 Dose: 12 units/kg/hr, 4.899 mls/hr Piperacillin Sod/Tazobactam Sod (Zosyn 3.375 In Ns 100ml) 100 mls @ 25 mls/hr IVPB Q8H MELY; Protocol Last Admin: 07/24/18 02:07 Dose: 25 mls/hr Lactated Ringer's (Lactated Ringer's) 1,000 mls @ 75 mls/hr IV .[id number] [facility] Last Admin: 07/24/18 03:13 Dose: 75 mls/hr Dexmedetomidine HCl (Precedex 400mcg/100ml) 400 mcg in 100 mls @ 3.028 mls/hr IV .Q24H PRN; Protocol PRN Reason: Agitation Pantoprazole Sodium (Protonix Inj) 40 mg IVP Q12 [facility] Last Admin: 07/23/18 21:36 Dose: 40 mg - Labs Labs: 07/24/18 06:15 07/24/18 06:15 PT 11.3 SECONDS (9.4-12.5) 07/20/18 16:01 INR 0.99 07/20/18 16:01 APTT 94.7 Seconds (25.1-36.5) H 07/21/18 17:07 - Constitutional Appears: Chronically Ill, Other (intubated on vent, alert) - Eye Exam Eye Exam: EOMI. absent: Scleral icterus - ENT Exam ENT Exam: Mucous Membranes Dry. absent: Mucous Membranes Moist - GI/Abdominal Exam GI & Abdominal Exam: Distended (mildly), Soft, Normal Bowel Sounds. 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 Cont treatment of ventilator dependent respiratory failure in setting of encephalopathy and septic shock with multi-organ damage requiring airway protection. CT C/A/P and U/S showed no gallstones/sludge concerning for cholecystitis or biliary dilatation. DDx-pancreatitis, colitis-ischemic, infectious, or reactive to pancreatitis. Slowly improving clincally with plans to attempt vent liberation Plan: -Cont IVF with LR for pancreatitis -Monitor labs -Infectious stool work up if specimen available -BCx/Micro NGTD -Abx per primary/ID -PPI IV BID -Avoid EtOH in future Pt discussed with Dr. Do; see attestation for further recs/changes Zac Martin, PGY-4 <Cirilo Do - Last Filed: 07/24/18 09:23> Objective - Vital Signs/Intake and Output Vital Signs (last 24 hours): Temp Pulse Resp BP Pulse Ox 97.8 F 84 19 111/78 100 07/23/18 19:00 07/24/18 06:00 07/24/18 08:17 07/23/18 16:16 07/24/18 08:17 Intake and Output: 07/24/18 07/24/18 06:59 18:59 Intake Total 2316 Output Total 250 Balance 2066 - Medications Medications: Current Medications Albuterol/Ipratropium (Duoneb 3 Mg/0.5 Mg (3 Ml) Ud) 3 ml IH [id number] MELY Last Admin: 07/24/18 08:16 Dose: 3 ml Hydrocortisone Sodium Succinate (Solu-Cortef) 50 mg IVP Q6H MELY Last Admin: 07/24/18 09:06 Dose: 50 mg NOREPINEPHRINE BIT/0.9 % NACL (Levophed 4 Mg/ 250 Ml Ns Premixed) 4 mg in 250 mls @ 15 mls/hr IV .[id number] PRN; Protocol PRN Reason: TITRATE PER MD ORDER Last Admin: 07/23/18 11:45 Dose: 4 mcg/min, 15 mls/hr Heparin Sodium/Sodium Chloride (Heparin 35844 Units/250ml 1/2 Normal Saline) 25,000 units in 250 mls @ 7.348 mls/hr IV .Q24H PRN; Protocol PRN Reason: ADJUST RATE PER PROTOCOL Last Titration: 07/21/18 12:30 Dose: 12 units/kg/hr, 4.899 mls/hr Piperacillin Sod/Tazobactam Sod (Zosyn 3.375 In Ns 100ml) 100 mls @ 25 mls/hr IVPB Q8H MELY; Protocol Last Admin: 07/24/18 02:07 Dose: 25 mls/hr Lactated Ringer's (Lactated Ringer's) 1,000 mls @ 75 mls/hr IV .[id number] MELY Last Admin: 07/24/18 03:13 Dose: 75 mls/hr Dexmedetomidine HCl (Precedex 400mcg/100ml) 400 mcg in 100 mls @ 3.028 mls/hr IV .Q24H PRN; Protocol PRN Reason: Agitation Pantoprazole Sodium (Protonix Inj) 40 mg IVP Q12 MELY Last Admin: 07/24/18 09:06 Dose: 40 mg - Labs Labs: 07/24/18 06:15 07/24/18 06:15 PT 11.3 SECONDS (9.4-12.5) 07/20/18 16:01 INR 0.99 07/20/18 16:01 APTT 94.7 Seconds (25.1-36.5) H 07/21/18 17:07 Attending/Attestation - Attestation I have fully participated in the care of the patient.: Yes I have reviewed all pertinent clinical information, including history, physical exam and plan: Yes Notes (Text): 07/24/18 09:21 History of DVT / PE Respiratory failure s/p intubation Sepsis Colitis, pancreatitis - Continue with antibiotic therapy - Continue with IVF hydration therapy - Ventilator weaning as per critical care team, if not feasible then suggest initiation of enteral feeding via OGT as soon as possible - Will continue to monitor patient clinical course
--- NOTE | 2018-07-24 10:04 | RAD ---
Date of service: 07/24/2018 HISTORY: intubated; PNA vs atelectasis COMPARISON: Comparison chest dated 07/23/2018. FINDINGS: Situ ETT, tip which lies approximately 5 cm above rick. Situ feeding tube tip of which lies left upper quadrant of the abdomen.. Right IJ central line with tip in the SVC unchanged LUNGS: Bibasilar opacities likely representing some combination of atelectasis/infiltrates and layering effusions. PLEURA: No significant pleural effusion identified, no pneumothorax apparent. CARDIOVASCULAR: No aortic atherosclerotic calcification present. Normal cardiac size. No pulmonary vascular congestion. OSSEOUS STRUCTURES: No significant abnormalities. VISUALIZED UPPER ABDOMEN: Normal. OTHER FINDINGS: None. IMPRESSION: Support lines and tubes as above. Bilateral atelectasis and/or infiltrates with moderately large layering effusions
--- NOTE | 2018-07-24 12:52 | PN ---
DATE: 07/24/2018 SUBJECTIVE: This 57-year-old female remains intubated in ICU, bed 3 in the [facility] (Former[facility]) on 07/24/2013. Today's chest x-ray was reviewed and it reveals persistent bilateral atelectasis and/or infiltrates with a moderately large layering effusion noted on both lower lung james. The patient did complete a bilateral venous Doppler ultrasound which was negative for DVT. The patient will be scheduled for a CT angiogram of her chest for completeness sake to rule out pulmonary embolism. At present, there have been no reports of fever, chills, chest pain. PHYSICAL EXAMINATION: VITAL SIGNS: Revealed a temperature of 98.7, respirations 19, pulse 84 and blood pressure 110/66. HEENT: Head: Normocephalic, atraumatic. Eyes no icterus. NECK: Supple. HEART: S1, S2. LUNGS: With decreased breath sounds at both bases. ABDOMEN: Soft. EXTREMITIES: No edema. SKIN: Without rash. NEUROLOGIC: Deconditioned. VASCULAR: Legs warm to touch. LABORATORY DATA: Sodium 145, K 3.2, chloride 111, bicarb 30, BUN 25, creatinine 0.8, random blood sugar 148. Phosphorous 1.9, magnesium 1.9. Bilirubin 0.4, AST 35, ALT 34, alk phos 73, albumin 2.3. Repeat lipase 190. IMPRESSION: A 57-year-old female admitted with hypothermia, respiratory insufficiency now on ventilator with improving hypotension, pancreatitis, anemia of acute illness, improving thrombocytopenia, history of deep venous thrombosis and pulmonary embolism, hypokalemia, pleural effusions, bibasilar atelectasis. PLAN: To continue dual nebulizers, IV heparin, IV Ringer's lactate, IV Levophed, potassium replacement, Protonix, Solu-Cortef and Zosyn. The patient will be scheduled for comprehensive metabolic panel, magnesium, phosphorus, CBC levels in a.m. and is ordered to be scheduled for weaning from ventilator as tolerated. The patient is currently receiving Jevity at 45 mL/hour and based on clinical progress, additional diagnostic workup will be entertained. All of the above was reviewed in detail with nursing, Ana Grewal, registered nurse. All questions were answered. Kena Lazo MD [facility] # [phone]
--- NOTE | 2018-07-24 13:09 | CP.CCUPN ---
<Juan Carlos Qureshi - Last Filed: 07/24/18 14:43> CCU Subjective - Physician Review Subjective (Free Text): Juan Carlos Qureshi, PGY1 ICU Progress Note for Dr. Dover Patient was seen and examined at bedside this morning. This morning, she was off pressors and sedation. Awake, alert, follows commands. Patient started on trial of pressure support; she tolerated it well; patient was subsequently extubated as a result. Patient also removed her own NG tube. She is currently on nasal nannula. Patient explained that she remembers smoking marijuana and drinking alcohol prior to her fall in which she was unresponsive for 4 days on the floor. She does not recall anything else. Patient is not feeling shortness of breath, cp, nausea, vomiting, fever, chills. Vital signs stable; no adverse overnight events. A full 12 point ROS was conducted and unremarkable except as stated above. CCU Objective - Vital Signs / Intake & Output Vital Signs (Last 4 hours): Vital Signs Pulse Resp BP Pulse Ox 07/24/18 12:48 114/65 07/24/18 12:30 75 14 122/79 98 07/24/18 12:20 77 13 98 07/24/18 12:15 79 16 104/57 L 98 07/24/18 12:00 81 16 107/64 98 07/24/18 11:45 77 21 114/69 97 07/24/18 11:40 84 34 H 97 07/24/18 11:30 91 H 24 101/71 97 07/24/18 11:20 98 H 18 96 07/24/18 11:15 67 21 127/69 98 07/24/18 11:00 150/67 07/24/18 10:59 105 H 17 93 L 07/24/18 10:45 99 H 19 110/67 93 L 07/24/18 10:40 93 H 23 94 L 07/24/18 10:30 109 H 110/64 07/24/18 10:20 90 13 95 07/24/18 10:15 88 18 101/59 L 07/24/18 10:00 100 H 16 103/59 L 95 07/24/18 09:45 95 H 10 L 96/51 L 94 L 07/24/18 09:40 104 H 19 94 L 07/24/18 09:30 104 H 106/65 95 07/24/18 09:20 77 15 98 07/24/18 09:16 85 21 131/82 98 Intake and Output (Last 8hrs): Intake & Output 07/23/18 07/24/18 07/24/18 22:59 06:59 14:59 Intake Total 2366 2316 Output Total 250 250 Balance 21156 Weight 60.328 kg Intake: IV 1626 1576 Right Internal Jugular 1576 1576 Tube Feeding 740 740 Output: Urine 250 250 2-way Urethral 250 250 Other: # Bowel Movements 0 0 - Physical Exam Head: Positive for: Other (Bruising on the right scalp) Pupils: Positive for: Pinpoint Mouth: Positive for: Dry Neck: Positive for: Other (R-IJ in place) Respiratory/Chest: Positive for: Clear to Auscultation. Negative for: Respiratory Distress, Wheezes, Rales, Retracting, Rhonchi Cardiovascular: Positive for: Normal S1, S2, Peripheal Pulses Present Abdomen: Positive for: Tenderness (Diffuse tenderness to palpation). Negative for: Distention, Peritoneal Signs, Guarding, Mass/Organomegaly Upper Extremity: Positive for: NORMAL PULSES, Other (Improved weakness of upper extremities). Negative for: Cyanosis, Edema Lower Extremity: Positive for: NORMAL PULSES, Other (Bilateral lower extremity weakness - unchanged ). Negative for: Edema, CALF TENDERNESS Skin: Positive for: Warm, Dry, Other (Bruising on the scalp, right thoracic region, sacrum, lateral maleoli, and bilateral knees (w/ swelling)) Psychiatric: Positive for: Alert, Oriented x 3 - Medications Active Medications: Active Medications Generic Name Dose Route Start Last Admin Trade Name Freq PRN Reason Stop Dose Admin Albuterol/Ipratropium 3 ml 07/22/18 14:00 07/24/18 08:16 Duoneb 3 Mg/0.5 Mg (3 Ml) Ud IH 3 ml [id number] MELY Administration Furosemide 20 mg 07/24/18 12:15 07/24/18 12:48 Lasix IV 20 mg Q12H MELY Administration Hydrocortisone Sodium Succinate 50 mg 07/21/18 09:45 07/24/18 09:06 Solu-Cortef IVP 50 mg Q6H MELY Administration NOREPINEPHRINE BIT/0.9 % NACL 4 mg in 250 mls @ 15 mls/hr 07/20/18 15:26 07/23/18 11:45 Levophed 4 Mg/ 250 Ml Ns Premixed IV 4 mcg/min .[id number] PRN 15 mls/hr TITRATE PER MD ORDER Administration Protocol 4 MCG/MIN Heparin Sodium/Sodium Chloride 25,000 units in 250 mls @ 7.348 mls/hr 07/20/18 17:14 07/21/18 12:30 Heparin [id number] Units/250ml 1/2 Normal Saline IV 12 units/kg/hr .Q24H PRN 4.899 mls/hr ADJUST RATE PER PROTOCOL Titration Protocol 18 UNITS/KG/HR Piperacillin Sod/Tazobactam Sod 100 mls @ 25 mls/hr 07/22/18 11:00 07/24/18 11:39 Zosyn 3.375 In Ns 100ml IVPB 25 mls/hr Q8H MELY Administration Protocol Lactated Ringer's 1,000 mls @ 75 mls/hr 07/22/18 11:00 07/24/18 03:13 Lactated Ringer's IV 75 mls/hr .[id number] MELY Administration Dexmedetomidine HCl 400 mcg in 100 mls @ 3.028 mls/hr 07/23/18 17:09 Precedex 400mcg/100ml IV .Q24H PRN Agitation Protocol 0.2 MCG/KG/HR Potassium Chloride 20 meq in 100 mls @ 50 mls/hr 07/24/18 13:00 Potassium Chloride 20 Meq/100 Ml IVPB 07/24/18 16:59 Q2H MELY Pantoprazole Sodium 40 mg 07/20/18 22:00 07/24/18 09:06 Protonix Inj IVP 40 mg Q12 MELY Administration Potassium Chloride 20 meq 07/24/18 14:00 K-Dur 20 Meq Er Tab PO QID MELY - Patient Studies Lab Studies: Microbiology Studies 07/20/18 12:08 Blood Culture - Preliminary Blood-Venous NO GROWTH AFTER 4 DAYS 07/20/18 16:01 Blood Culture - Preliminary Blood-Venous NO GROWTH AFTER 3 DAYS Lab Studies 07/24/18 07/24/18 07/24/18 Range/Units 12:51 06:15 06:15 WBC (4.5-11.0) 10^3/uL RBC (3.5-6.1) 10^6/uL Hgb (12.0-16.0) g/dL Hct (36.0-48.0) % MCV (80.0-105.0) fl MCH (25.0-35.0) pg MCHC (31.0-37.0) g/dl RDW (11.5-14.5) % Plt Count (120.0-450.0) 10^3/uL MPV (7.0-11.0) fl pCO2 (35-45) mm/Hg pO2 (80-100) mm/Hg HCO3 (21-28) mmol/L ABG pH (7.35-7.45) ABG Total CO2 (22-28) mmol.L ABG O2 Saturation (95-98) % ABG O2 Content (15-23) ML/dl ABG Base Excess (-2.0-3.0) mmol/L ABG Hemoglobin (11.7-17.4) g/dL ABG Carboxyhemoglobin (0.5-1.5) % POC ABG HHb (Measured) (0-5) % ABG Methemoglobin (0.0-3.0) % ABG O2 Capacity (16-24) mL/dl Hgb O2 Saturation (95.0-98.0) % FiO2 % Sodium 145 (132-148) mmol/L Potassium 3.2 L (3.6-5.0) mmol/L Chloride 111 H (98-107) mmol/L Carbon Dioxide 30 (21-33) mmol/L Anion Gap 7 L (10-20) BUN 25 H (7-21) mg/dL Creatinine 0.8 (0.7-1.2) mg/dl Est GFR ( Amer) > 60 Est GFR (Non-Af Amer) > 60 POC Glucose (mg/dL) 101 159 H (65-110) mg/dL Random Glucose 148 H (70-110) mg/dL Calcium 7.5 L (8.4-10.5) mg/dL Phosphorus 1.9 L (2.5-4.5) mg/dL Magnesium 1.9 (1.7-2.2) mg/dL Total Bilirubin 0.4 (0.2-1.3) mg/dL AST 35 (14-36) U/L ALT 34 (7-56) U/L Alkaline Phosphatase 73 (38-126) U/L Total Protein 4.7 L (5.8-8.3) g/dL Albumin 2.3 L (3.0-4.8) g/dL Globulin 2.4 gm/dL Albumin/Globulin Ratio 0.9 L (1.1-1.8) 07/24/18 07/24/18 07/24/18 Range/Units 06:15 05:00 00:09 WBC 12.7 H D (4.5-11.0) 10^3/uL RBC 2.92 L (3.5-6.1) 10^6/uL Hgb 9.4 L (12.0-16.0) g/dL Hct 27.7 L (36.0-48.0) % MCV 94.9 (80.0-105.0) fl MCH 32.2 (25.0-35.0) pg MCHC 33.9 (31.0-37.0) g/dl RDW 16.6 H (11.5-14.5) % Plt Count 123 (120.0-450.0) 10^3/uL MPV 11.5 H (7.0-11.0) fl pCO2 36 (35-45) mm/Hg pO2 150.0 H (80-100) mm/Hg HCO3 26.8 (21-28) mmol/L ABG pH 7.48 H (7.35-7.45) ABG Total CO2 27.9 (22-28) mmol.L ABG O2 Saturation 99.4 H (95-98) % ABG O2 Content 15.2 (15-23) ML/dl ABG Base Excess 3.3 H (-2.0-3.0) mmol/L ABG Hemoglobin 10.9 L (11.7-17.4) g/dL ABG Carboxyhemoglobin 1.1 (0.5-1.5) % POC ABG HHb (Measured) 0.6 (0-5) % ABG Methemoglobin 1.0 (0.0-3.0) % ABG O2 Capacity 15.3 L (16-24) mL/dl Hgb O2 Saturation 97.2 (95.0-98.0) % FiO2 50.0 % Sodium (132-148) mmol/L Potassium (3.6-5.0) mmol/L Chloride (98-107) mmol/L Carbon Dioxide (21-33) mmol/L Anion Gap (10-20) BUN (7-21) mg/dL Creatinine (0.7-1.2) mg/dl Est GFR ( Amer) Est GFR (Non-Af Amer) POC Glucose (mg/dL) 152 H (65-110) mg/dL Random Glucose (70-110) mg/dL Calcium (8.4-10.5) mg/dL Phosphorus (2.5-4.5) mg/dL Magnesium (1.7-2.2) mg/dL Total Bilirubin (0.2-1.3) mg/dL AST (14-36) U/L ALT (7-56) U/L Alkaline Phosphatase (38-126) U/L Total Protein (5.8-8.3) g/dL Albumin (3.0-4.8) g/dL Globulin gm/dL Albumin/Globulin Ratio (1.1-1.8) Laboratory Results - last 24 hr 07/24/18 07/24/18 07/24/18 00:09 05:00 06:15 WBC 12.7 H D RBC 2.92 L Hgb 9.4 L Hct 27.7 L MCV 94.9 MCH 32.2 MCHC 33.9 RDW 16.6 H Plt Count 123 MPV 11.5 H pCO2 36 pO2 150.0 H HCO3 26.8 ABG pH 7.48 H ABG Total CO2 27.9 ABG O2 Saturation 99.4 H ABG O2 Content 15.2 ABG Base Excess 3.3 H ABG Hemoglobin 10.9 L ABG Carboxyhemoglobin 1.1 POC ABG HHb (Measured) 0.6 ABG Methemoglobin 1.0 ABG O2 Capacity 15.3 L Hgb O2 Saturation 97.2 FiO2 50.0 Sodium Potassium Chloride Carbon Dioxide Anion Gap BUN Creatinine Est GFR ( Amer) Est GFR (Non-Af Amer) POC Glucose (mg/dL) 152 H Random Glucose Calcium Phosphorus Magnesium Total Bilirubin AST ALT Alkaline Phosphatase Total Protein Albumin Globulin Albumin/Globulin Ratio 07/24/18 07/24/18 07/24/18 06:15 06:15 12:51 WBC RBC Hgb Hct MCV MCH MCHC RDW Plt Count MPV pCO2 pO2 HCO3 ABG pH ABG Total CO2 ABG O2 Saturation ABG O2 Content ABG Base Excess ABG Hemoglobin ABG Carboxyhemoglobin POC ABG HHb (Measured) ABG Methemoglobin ABG O2 Capacity Hgb O2 Saturation FiO2 Sodium 145 Potassium 3.2 L Chloride 111 H Carbon Dioxide 30 Anion Gap 7 L BUN 25 H Creatinine 0.8 Est GFR ( Amer) > 60 Est GFR (Non-Af Amer) > 60 POC Glucose (mg/dL) 159 H 101 Random Glucose 148 H Calcium 7.5 L Phosphorus 1.9 L Magnesium 1.9 Total Bilirubin 0.4 AST 35 ALT 34 Alkaline Phosphatase 73 Total Protein 4.7 L Albumin 2.3 L Globulin 2.4 Albumin/Globulin Ratio 0.9 L Fingerstick Blood Sugar Results: 206 Review of Systems - Review of Systems All systems: reviewed and no additional remarkable complaints except (as per HPI.) Critical Care Progress Note - Extremities/Vascular Does the Patient have a Central Venous Catheter?: Yes Insertion Site: Internal Jugular Vein Does the Patient need a Central Venous Catheter?: No (Plan to remove ) Does the Patient have a Vazquez Catheter?: Yes Does the Patient need a Vazquez Catheter?: Yes Catheter Insertion Criteria: Patient has acute urinary retention or bladder outlet obstruction - Prophylaxis GI Prophylaxis GI: PPI - Prophylaxis DVT Prophylaxis DVT: SCDs - Nutrition Nutrition: Nutrition Category Date Time Status NPO Diet [DIET] Diets 07/20/18 Breakfast Ordered Assessment/Plan - Assessment and Plan (Free Text) Assessment: Patient is a 57 y/o F with PMHx asthma, 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 Patient was found to be hypothermic on presentation and intubated as a result of unresponsiveness. Patient was also found to be in shock during presentation. ICU was consulted for management of distributive shock, severe hypothermia, and pancreatitis which has improved. Patient was successfully extubated. Plan: Neuro: - AAOx3; s/p extubation - Severe Hypothermia - resolved - Stroke workup negative - Neurology consulted. Recs appreciated. Cardio: - Distributive Shock with Multiorgan Dysfunction - Improved - Patient is off pressors and normotensive. Consider removal of R-IJ central line to avoid catheter associated infection Pulm: - Chest CT ordered to r/o PE; f/u results - Extubated successfully today. Saturating well on nasal cannula - CXR (12/02): bilateral atelectasis with moderately enlarged effusions. - Venous doppler was negative for DVT - Maintain SaO2 > 92% GI: - Pancreatitis is likely due to heavy alcohol intoxication prior to patient's fall/unresponsiveness for x4 days - Patient removed NG tube after she was extubated - Speech/Swallow eval; advance diet as tolerated - CT A/P (07/20): pancreatitis - GI and Surgery on consult, no further recommendations. - GI ppx with PTX Renal: - AUBREY - resolved - Hypokalemia - repleted - Oligouria - continue to monitor strict Ins/Outs; vazquez catheter is in place - Nephrology consulted. Recs appreciated ID: - c/w [id number] (Day #4). Follow up ID recommendations - Mildly elevated leukocytosis - ID consulted. 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 Dispo: Patient is s/p extubation. Will monitor in the ICU. Case was discussed and reviewed with Attending Physician, Dr. Dover <Jonny Dover - Last Filed: 07/24/18 18:32> CCU Objective - Vital Signs / Intake & Output Vital Signs (Last 4 hours): Vital Signs Pulse Resp BP Pulse Ox 07/24/18 18:20 114 H 20 97 07/24/18 18:15 104 H 34 H 104/65 98 07/24/18 18:00 99 H 23 115/58 L 98 07/24/18 17:46 97 H 18 104/62 99 07/24/18 17:40 104 H 18 98 07/24/18 17:30 96 H 17 118/87 98 07/24/18 17:20 95 H 14 98 07/24/18 17:15 99 H 22 113/64 99 07/24/18 17:00 73 15 114/71 99 07/24/18 16:45 88 19 120/74 100 07/24/18 16:40 61 14 99 07/24/18 16:30 72 20 111/67 99 07/24/18 16:20 71 21 100 07/24/18 16:15 81 16 111/64 99 07/24/18 16:00 92 H 110/50 L 99 07/24/18 15:46 77 36 H 105/70 98 07/24/18 15:40 77 98 07/24/18 15:31 99 H 17 106/70 99 07/24/18 15:20 74 21 98 07/24/18 15:15 74 36 H 119/77 99 07/24/18 15:00 81 22 112/71 98 07/24/18 14:45 78 30 H 117/69 98 07/24/18 14:40 98 H 18 97 Intake and Output (Last 8hrs): Intake & Output 07/24/18 07/24/18 07/24/18 06:59 14:59 22:59 Intake Total 2316 165 Output Total 250 Balance 2066 165 Weight 60.328 kg Intake: IV 1576 165 Right Internal Jugular 1576 Tube Feeding 740 Output: Urine 250 2-way Urethral 250 Other: # Bowel Movements 0 - Medications Active Medications: Active Medications Generic Name Dose Route Start Last Admin Trade Name Freq PRN Reason Stop Dose Admin Albuterol/Ipratropium 3 ml 07/22/18 14:00 07/24/18 13:23 Duoneb 3 Mg/0.5 Mg (3 Ml) Ud IH 3 ml [id number] MELY Administration Furosemide 20 mg 07/24/18 12:15 07/24/18 12:48 Lasix IV 20 mg Q12H MELY Administration Piperacillin Sod/Tazobactam Sod 100 mls @ 25 mls/hr 07/22/18 11:00 07/24/18 18:12 Zosyn 3.375 In Ns 100ml IVPB 25 mls/hr Q8H MELY Administration Protocol Lactated Ringer's 1,000 mls @ 75 mls/hr 07/22/18 11:00 07/24/18 03:13 Lactated Ringer's IV 75 mls/hr .[id number] MELY Administration Pantoprazole Sodium 40 mg 07/20/18 22:00 07/24/18 09:06 Protonix Inj IVP 40 mg Q12 MELY Administration Potassium Chloride 20 meq 07/24/18 14:00 07/24/18 18:12 K-Dur 20 Meq Er Tab PO 20 meq QID MELY Administration - Patient Studies Lab Studies: Microbiology Studies 07/20/18 16:01 Blood Culture - Preliminary Blood-Venous NO GROWTH AFTER 4 DAYS 07/20/18 12:08 Blood Culture - Preliminary Blood-Venous NO GROWTH AFTER 4 DAYS Lab Studies 07/24/18 07/24/18 07/24/18 Range/Units 12:51 06:15 06:15 WBC (4.5-11.0) 10^3/uL RBC (3.5-6.1) 10^6/uL Hgb (12.0-16.0) g/dL Hct (36.0-48.0) % MCV (80.0-105.0) fl MCH (25.0-35.0) pg MCHC (31.0-37.0) g/dl RDW (11.5-14.5) % Plt Count (120.0-450.0) 10^3/uL MPV (7.0-11.0) fl pCO2 (35-45) mm/Hg pO2 (80-100) mm/Hg HCO3 (21-28) mmol/L ABG pH (7.35-7.45) ABG Total CO2 (22-28) mmol.L ABG O2 Saturation (95-98) % ABG O2 Content (15-23) ML/dl ABG Base Excess (-2.0-3.0) mmol/L ABG Hemoglobin (11.7-17.4) g/dL ABG Carboxyhemoglobin (0.5-1.5) % POC ABG HHb (Measured) (0-5) % ABG Methemoglobin (0.0-3.0) % ABG O2 Capacity (16-24) mL/dl Hgb O2 Saturation (95.0-98.0) % FiO2 % Sodium 145 (132-148) mmol/L Potassium 3.2 L (3.6-5.0) mmol/L Chloride 111 H (98-107) mmol/L Carbon Dioxide 30 (21-33) mmol/L Anion Gap 7 L (10-20) BUN 25 H (7-21) mg/dL Creatinine 0.8 (0.7-1.2) mg/dl Est GFR ( Amer) > 60 Est GFR (Non-Af Amer) > 60 POC Glucose (mg/dL) 101 159 H (65-110) mg/dL Random Glucose 148 H (70-110) mg/dL Calcium 7.5 L (8.4-10.5) mg/dL Phosphorus 1.9 L (2.5-4.5) mg/dL Magnesium 1.9 (1.7-2.2) mg/dL Total Bilirubin 0.4 (0.2-1.3) mg/dL AST 35 (14-36) U/L ALT 34 (7-56) U/L Alkaline Phosphatase 73 (38-126) U/L Total Protein 4.7 L (5.8-8.3) g/dL Albumin 2.3 L (3.0-4.8) g/dL Globulin 2.4 gm/dL Albumin/Globulin Ratio 0.9 L (1.1-1.8) 07/24/18 07/24/18 07/24/18 Range/Units 06:15 05:00 00:09 WBC 12.7 H D (4.5-11.0) 10^3/uL RBC 2.92 L (3.5-6.1) 10^6/uL Hgb 9.4 L (12.0-16.0) g/dL Hct 27.7 L (36.0-48.0) % MCV 94.9 (80.0-105.0) fl MCH 32.2 (25.0-35.0) pg MCHC 33.9 (31.0-37.0) g/dl RDW 16.6 H (11.5-14.5) % Plt Count 123 (120.0-450.0) 10^3/uL MPV 11.5 H (7.0-11.0) fl pCO2 36 (35-45) mm/Hg pO2 150.0 H (80-100) mm/Hg HCO3 26.8 (21-28) mmol/L ABG pH 7.48 H (7.35-7.45) ABG Total CO2 27.9 (22-28) mmol.L ABG O2 Saturation 99.4 H (95-98) % ABG O2 Content 15.2 (15-23) ML/dl ABG Base Excess 3.3 H (-2.0-3.0) mmol/L ABG Hemoglobin 10.9 L (11.7-17.4) g/dL ABG Carboxyhemoglobin 1.1 (0.5-1.5) % POC ABG HHb (Measured) 0.6 (0-5) % ABG Methemoglobin 1.0 (0.0-3.0) % ABG O2 Capacity 15.3 L (16-24) mL/dl Hgb O2 Saturation 97.2 (95.0-98.0) % FiO2 50.0 % Sodium (132-148) mmol/L Potassium (3.6-5.0) mmol/L Chloride (98-107) mmol/L Carbon Dioxide (21-33) mmol/L Anion Gap (10-20) BUN (7-21) mg/dL Creatinine (0.7-1.2) mg/dl Est GFR ( Amer) Est GFR (Non-Af Amer) POC Glucose (mg/dL) 152 H (65-110) mg/dL Random Glucose (70-110) mg/dL Calcium (8.4-10.5) mg/dL Phosphorus (2.5-4.5) mg/dL Magnesium (1.7-2.2) mg/dL Total Bilirubin (0.2-1.3) mg/dL AST (14-36) U/L ALT (7-56) U/L Alkaline Phosphatase (38-126) U/L Total Protein (5.8-8.3) g/dL Albumin (3.0-4.8) g/dL Globulin gm/dL Albumin/Globulin Ratio (1.1-1.8) Laboratory Results - last 24 hr 07/24/18 07/24/18 07/24/18 00:09 05:00 06:15 WBC 12.7 H D RBC 2.92 L Hgb 9.4 L Hct 27.7 L MCV 94.9 MCH 32.2 MCHC 33.9 RDW 16.6 H Plt Count 123 MPV 11.5 H pCO2 36 pO2 150.0 H HCO3 26.8 ABG pH 7.48 H ABG Total CO2 27.9 ABG O2 Saturation 99.4 H ABG O2 Content 15.2 ABG Base Excess 3.3 H ABG Hemoglobin 10.9 L ABG Carboxyhemoglobin 1.1 POC ABG HHb (Measured) 0.6 ABG Methemoglobin 1.0 ABG O2 Capacity 15.3 L Hgb O2 Saturation 97.2 FiO2 50.0 Sodium Potassium Chloride Carbon Dioxide Anion Gap BUN Creatinine Est GFR ( Amer) Est GFR (Non-Af Amer) POC Glucose (mg/dL) 152 H Random Glucose Calcium Phosphorus Magnesium Total Bilirubin AST ALT Alkaline Phosphatase Total Protein Albumin Globulin Albumin/Globulin Ratio 07/24/18 07/24/18 07/24/18 06:15 06:15 12:51 WBC RBC Hgb Hct MCV MCH MCHC RDW Plt Count MPV pCO2 pO2 HCO3 ABG pH ABG Total CO2 ABG O2 Saturation ABG O2 Content ABG Base Excess ABG Hemoglobin ABG Carboxyhemoglobin POC ABG HHb (Measured) ABG Methemoglobin ABG O2 Capacity Hgb O2 Saturation FiO2 Sodium 145 Potassium 3.2 L Chloride 111 H Carbon Dioxide 30 Anion Gap 7 L BUN 25 H Creatinine 0.8 Est GFR ( Amer) > 60 Est GFR (Non-Af Amer) > 60 POC Glucose (mg/dL) 159 H 101 Random Glucose 148 H Calcium 7.5 L Phosphorus 1.9 L Magnesium 1.9 Total Bilirubin 0.4 AST 35 ALT 34 Alkaline Phosphatase 73 Total Protein 4.7 L Albumin 2.3 L Globulin 2.4 Albumin/Globulin Ratio 0.9 L Critical Care Progress Note - Nutrition Nutrition: Nutrition Category Date Time Status Heart Healthy Diet [DIET] Diets 07/24/18 Dinner Active Addendum Addendum: 07/24/18 18:30 MICU ATTENDING ADDENDUM: Patient seen and examined. Case discussed in round with housestaff. Agree with note above with the following additions/exception: This is a 57 y/o F with asthma, and DVT/PE this past Aug 2017 on coumadin at home found unresponsive. Family did not hear from her for 4 days and broke down the door and found her on the floor unresponsive. In the ED she was hypothermic and subsequentally intubated. Neuro workup has been negative thus far. CT and MRI do not show stroke. 2d Echo shows no PFO. EEG not suggestive of seizures. She is much more awake and alert now. Did well on CPAP trial this AM, I have now extubated her. She is answering questions and appears much better. Unclear etiology of her initially presentations. PE was possible given her hx. In addition, her DVT/PE was earlier in the year and we must decide whether she needs AC still. Doppler LE neg. CTA no PE thus therpeutic antigcoag not indicated. Start dvt ppx hep sq Abx as per ID AUBREY resolved; replace k off pressors d/c stress steroids speech swallow eval PPI for GI PPX hep sq dvt ppx FULL CODE Rest of care above Jonny Dover MD Pulmonary Critical Care and Sleep Medicine Critical Care Time: 41 mins
[2018-07-24] MEDS: Potassium Chloride 20 mEq ER Tab PO SCH ×3 (13:15→22:06)
--- NOTE | 2018-07-24 14:09 | CT ---
Date of service: 07/24/2018 PROCEDURE: CT Chest with contrast (Pulmonary Angiogram) HISTORY: History of the PE and respiratory arrest COMPARISON: Comparison made with CT chest 07/20/2018 and chest radiograph obtained 07/24/2018 at 0539 hr. TECHNIQUE: Axial computed tomography images were obtained of the chest in the pulmonary arterial phase of enhancement. Coronal and sagittal reformatted images were created and reviewed. Intravenous contrast dose: 40 cc Omnipaque 350 Radiation dose: Total exam DLP = 392.41 mGy-cm. This CT exam was performed using one or more of the following dose reduction techniques: Automated exposure control, adjustment of the mA and/or kV according to patient size, and/or use of iterative reconstruction technique. FINDINGS: Interval removal ETT and feeding tube.. PULMONARY ARTERIES: The visualized pulmonary trunk, right and left main, lobar, segmental and proximal subsegmental branches of the pulmonary arteries are well opacified with no definitive filling defects seen to suggest acute central pulmonary embolus. Pulmonary trunk measures approximately 3.0 cm. Rule out mild underlying pulmonary arterial hypertension. AORTA: No acute findings. No thoracic aortic aneurysm. Minor aortic atherosclerotic calcification or mural plaque present seen along the thoracic aorta as well as at the origins of the great vessels. Ascending thoracic aorta measures approximately 3.1 cm. Descending thoracic aorta measures approximately 2.2 cm. LUNGS: Large bilateral effusions right larger than left with mild bilateral atelectasis.. Mild pulmonary venous congestive changes are felt to be present. There are also areas of patchy opacities in the left upper lobe including the lingular region. There also linear areas of scarring in the left lung base. The similar patchy opacities are also noted in the right upper middle and lower lobes. Linear atelectasis/scarring also present in the right lung base. PLEURAL SPACES: As above. No pneumothorax. HEART: Heart size is within range of normal. No significant pericardial effusion. LYMPH NODES: No lymphadenopathy. BONES, CHEST WALL: Unremarkable. No fracture or destructive lesion OTHER FINDINGS: Mild anasarca also felt be present. Note made of dense breast tissue right greater than left. Mammography suggested for further evaluation IMPRESSION: No evidence of acute central pulmonary embolus. Large bilateral effusions and mild bilateral atelectasis.. Mild pulmonary venous congestive changes felt be present. Patchy opacity scattered throughout the right lung as well as the left upper lobe and lingular region. Mild anasarca. Note made of dense breast tissue right greater than left. Mammography suggested for further evaluation
--- NOTE | 2018-07-24 15:07 | PN ---
CRITICAL CARE PROGRESS NOTE DATE: 07/23/2018 SUBJECTIVE: This 57-year-old female was examined in ICU bed 3 at the [facility] on the afternoon of Wednesday, July 23, 2018. This case was reviewed in detail with Dr. Jonny Dover and nurse Ana Grewal, registered nurse. The patient remains intubated. She is more alert. There have been no reports of fever, chills, chest pain or shortness of breath and the patient is being weaned from the ventilator as tolerated. She remains in a sinus rhythm on the cardiac rehabilitation program director. PHYSICAL EXAMINATION: VITAL SIGNS: Her temperature was 97.6, respirations 20, pulse 88 and blood pressure 132/75 with pulse ox 93%. HEENT: Head is normocephalic and atraumatic. Eyes, no icterus. NECK: Supple. HEART: S1 and S2. LUNGS: Clear. ABDOMEN: Soft. EXTREMITIES: No edema. SKIN: Without rash. NEUROLOGICAL: Deconditioned. VASCULAR: Legs warm to touch. LABORATORY DATA: White count 9900, hemoglobin 10.2, hematocrit 29.3 and platelets 95,000. Sodium 142, potassium 3.0, chloride 109, bicarb 31, BUN 26, creatinine 0.9, random blood sugar 163, calcium 6.9, phosphorous 2.2 and magnesium 1.9. Bilirubin 0.6, AST 37, ALT 35 and alk phos 62 with a albumin level of 2.1. HIV 1 and 2 antigen and antibody 4th generation testing nonreactive. Chest x-ray was reviewed. It shows feeding tube in the upper abdomen in need of advancement into the stomach, left lower lobe shows a combination of atelectasis and infiltrate and a left pleural effusion and some minor right basilar atelectasis. IMPRESSION: This is a 57-year-old female admitted with septic shock with rhabdomyolysis, acute renal failure improved, hypotension, altered mental status, drug screen positive for cannabinoids and pancreatitis. PLAN: At present is to continue dual nebulizers ventilatory support, IV heparin protocol pending venous Doppler's and CT angiogram to rule out PE. Also the patient will continue on Ringer's Lactate, IV Levophed for blood pressure support, potassium replacement, IV Protonix, stress dose Solu-Cortef and IV Zosyn. Based on clinical progress, additional diagnostic workup and treatment will be entertained. This case was reviewed in detail with fuel efficient aircraft designer, Dr. Dover. All questions were answered. Kena Lazo MD ARIANNA
[2018-07-24 19:16] LABS: BLOOD UREA NITROGEN 23 mg/dL (7-21); CALCIUM 7.5 mg/dL (8.4-10.5); GFR NON-AFRICAN AMERICAN > 60
--- NOTE | 2018-07-24 20:35 | PN ---
DATE: 07/24/2018 SUBJECTIVE: The patient is in bed. No acute distress. Was seen early this morning, intubated on a ventilator. PHYSICAL EXAMINATION VITAL SIGNS: Temperature is 98, blood pressure is 114/60, respiratory rate of 18, and heart rate of 77. HEENT: Examination of HEENT is unremarkable. NECK: Supple. LUNGS: Have decreased breath sounds. HEART: Normal S1 and S2. ABDOMEN: Soft. LABORATORY DATA: Laboratory examination reveals a white count of 12,700, hemoglobin of 9, BUN of 25, creatinine of 0.8. Urinalysis is noted. Toxicology is noted. Serology is negative. Microbiology reveals the blood cultures are no growth. Nares are negative. Urine cultures are negative. The patient had a CAT scan of the chest today for an angio, reveals no evidence of acute central pulmonary emboli. There is large bilateral effusion, bilateral atelectasis and congestion, patchy opacity scattered throughout the right lung as with the left upper lobe and Dr. Rangel note is reviewed. ASSESSMENT AND PLAN: A 57-year-old female who was admitted with septic shock, respiratory failure, intubated on the ventilator, found unresponsive, found to have secondary to colitis and pancreatitis probably biliary origin with a history of deep vein thrombosis, day #4 of Zosyn, the patient was intubated as of this morning; however, a note was written by Dr. Rangel that the patient is successfully extubated now, currently on Zosyn and GI workup in progress and blood culture is negative, nares MRSA is negative, urine culture is negative and his biliary workup per GI and surgery, Dr. Cirilo Do's note is reviewed. We will follow closely with you. Ashkan Bah MD
[2018-07-25] MEDS: Albuterol-Ipratrop 3 mg / 0.5 (3 ml) UD IH SCH ×4 (01:46→19:29)
[2018-07-25] MEDS: Piperacillin/Tazobact 3.375 gm 100 ML IVPB SCH ×3 (05:06→18:05)
[2018-07-25 07:41] LABS: HEMOGLOBIN 8.9 g/dL (12.0-16.0); MEAN CORPUSCULAR HEMOGLOBIN 31.7 pg (25.0-35.0); MEAN CORPUSCULAR HGB CONC 33.3 g/dl (31.0-37.0); MEAN PLATELET VOLUME 10.8 fl (7.0-11.0); RBC 2.81 10^6/uL (3.5-6.1); RED CELL DISTRIBUTION WIDTH 16.7 % (11.5-14.5); WHITE BLOOD COUNT 10.2 10^3/uL (4.5-11.0)
[2018-07-25 08:28] LABS: ALB/GLOB RATIO 0.9 (1.1-1.8); ALBUMIN 2.1 g/dL (3.0-4.8); ALT/SGPT 38 U/L (7-56); AST/SGOT 36 U/L (14-36); BLOOD UREA NITROGEN 23 mg/dL (7-21); CALCIUM 7.8 mg/dL (8.4-10.5); GFR NON-AFRICAN AMERICAN > 60
[2018-07-25] MEDS ORDERED: Potassium Chloride 40 mEq/30 ml LIQ UD PO ONE (08:33)
[2018-07-25] MEDS ORDERED: Magnesium Sulfate 1 gm in D5W 1 GM/100 ML BAG IVPB ONE (09:51)
[2018-07-25] MEDS: Potassium Chloride 20 mEq ER Tab PO SCH (09:58)
--- NOTE | 2018-07-25 10:03 | CP.PCM.PN ---
<Dougie Antonio - Last Filed: 07/25/18 10:03> Subjective - Date & Time of Evaluation Date of Evaluation: 07/25/18 Time of Evaluation: 08:00 - Subjective Subjective: PGY6 GI Fellow Progress Note Patient seen and examined bedside this morning. The patient has been extubated and is able to converse though I note some altered mentation during interview/examination. Patient slow to respond to most questions and history provided remains questionable. Per staff, her sister notified medical/surgical team of alcohol use history. Patient admits to drinking alcohol but unable to quantify at this time. FINISHED CLOTH EXAMINER recommended puree diet which she is attempting to eat this morning. 12 system ROS limited given mentation. Objective - Vital Signs/Intake and Output Vital Signs (last 24 hours): Temp Pulse Resp BP Pulse Ox 97.8 F 114 H 20 119/38 L 97 07/23/18 19:00 07/24/18 18:20 07/24/18 18:20 07/25/18 05:07 07/24/18 18:20 - Medications Medications: Current Medications Albuterol/Ipratropium (Duoneb 3 Mg/0.5 Mg (3 Ml) Ud) 3 ml IH [id number] MELY Last Admin: 07/25/18 07:33 Dose: 3 ml Furosemide (Lasix) 20 mg IV Q12H MELY Last Admin: 07/25/18 05:07 Dose: 20 mg Heparin Sodium (Porcine) (Heparin) 5,000 units SC Q12 MELY; Protocol Last Admin: 07/24/18 22:06 Dose: 5,000 units Piperacillin Sod/Tazobactam Sod (Zosyn 3.375 In Ns 100ml) 100 mls @ 25 mls/hr IVPB Q8H MELY; Protocol Last Admin: 07/25/18 05:06 Dose: 25 mls/hr Lactated Ringer's (Lactated Ringer's) 1,000 mls @ 75 mls/hr IV .[id number] MELY Last Admin: 07/24/18 22:07 Dose: 75 mls/hr Magnesium Sulfate/Dextrose (Magnesium Sulfate 1 Gm/100 Ml D5w) 1 gm in 100 mls @ 100 mls/hr IVPB ONCE ONE Stop: 07/25/18 10:50 Pantoprazole Sodium (Protonix Inj) 40 mg IVP Q12 MELY Last Admin: 07/24/18 22:07 Dose: 40 mg Potassium Chloride (K-Dur 20 Meq Er Tab) 20 meq PO QID [facility] Last Admin: 07/24/18 22:06 Dose: 20 meq Potassium Chloride (K-Dur 20 Meq Er Tab) 40 meq PO ONCE ONE Stop: 07/25/18 12:31 - Labs Labs: 07/25/18 07:30 07/25/18 07:30 PT 11.3 SECONDS (9.4-12.5) 07/20/18 16:01 INR 0.99 07/20/18 16:01 APTT 94.7 Seconds (25.1-36.5) H 07/21/18 17:07 - Constitutional Appears: No Acute Distress, Chronically Ill - Eye Exam Eye Exam: EOMI, PERRL - ENT Exam ENT Exam: Mucous Membranes Dry - Respiratory Exam Respiratory Exam: Rales. absent: Clear to Ausculation Bilateral, Rhonchi, Wheezes - Cardiovascular Exam Cardiovascular Exam: Tachycardia, REGULAR RHYTHM, +S1, +S2 - GI/Abdominal Exam GI & Abdominal Exam: Soft, Tenderness (epigastric), Normal Bowel Sounds. absen t: Distended, Firm, Guarding, Rigid, Organomegaly - Extremities Exam Extremities Exam: Normal Inspection. absent: Pedal Edema - Neurological Exam Neurological Exam: Altered, Awake - Psychiatric Exam Psychiatric exam: Flat Affect - Skin Skin Exam: Dry, Warm Assessment and Plan - Assessment and Plan (Free Text) Assessment: Patient is a 57yo female with PMHx significant for DVT, right sided PE on anticoagulation with Coumadin as recently as July 2018 who was found unresp onsive by her sister prior to arrival. -Severe acute pancreatitis, suspect 2/2 alcohol use -Acute respiratory failure requiring mechanical ventilation; resolved - extubated -Acute metabolic encephalopathy -Colitis -H/O DVT/PE Plan: -S/P extubation -FINISHED CLOTH EXAMINER evaluation recommending puree diet, possible dysphagia as a result of poor dentition with re-evaluation pending -OK to stop tube feeding if tolerating adequate PO -Given EtOH history per family, suspect this as etiology -Currently on Zosyn - ? colitis on presentation -Will likely benefit from outpatient follow up and endoscopic evaluation <Cirilo Do - Last Filed: 07/25/18 10:14> Objective - Vital Signs/Intake and Output Vital Signs (last 24 hours): Temp Pulse Resp BP Pulse Ox 97.8 F 114 H 20 119/38 L 97 07/23/18 19:00 07/24/18 18:20 07/24/18 18:20 07/25/18 05:07 07/24/18 18:20 - Medications Medications: Current Medications Albuterol/Ipratropium (Duoneb 3 Mg/0.5 Mg (3 Ml) Ud) 3 ml IH [id number] MELY Last Admin: 07/25/18 07:33 Dose: 3 ml Furosemide (Lasix) 20 mg IV Q12H MELY Last Admin: 07/25/18 05:07 Dose: 20 mg Heparin Sodium (Porcine) (Heparin) 5,000 units SC Q12 MELY; Protocol Last Admin: 07/25/18 09:57 Dose: 5,000 units Piperacillin Sod/Tazobactam Sod (Zosyn 3.375 In Ns 100ml) 100 mls @ 25 mls/hr IVPB Q8H MELY; Protocol Last Admin: 07/25/18 10:02 Dose: 25 mls/hr Magnesium Sulfate/Dextrose (Magnesium Sulfate 1 Gm/100 Ml D5w) 1 gm in 100 mls @ 100 mls/hr IVPB ONCE ONE Stop: 07/25/18 10:50 Last Admin: 07/25/18 09:57 Dose: 100 mls/hr Pantoprazole Sodium (Protonix Ec Tab) 40 mg PO 0600 MELY Potassium Chloride (K-Dur 20 Meq Er Tab) 20 meq PO QID MELY Last Admin: 07/25/18 09:58 Dose: 20 meq Potassium Chloride (K-Dur 20 Meq Er Tab) 40 meq PO ONCE ONE Stop: 07/25/18 12:31 - Labs Labs: 07/25/18 07:30 07/25/18 07:30 PT 11.3 SECONDS (9.4-12.5) 07/20/18 16:01 INR 0.99 07/20/18 16:01 APTT 94.7 Seconds (25.1-36.5) H 07/21/18 17:07 Attending/Attestation - Attestation I have fully participated in the care of the patient.: Yes I have reviewed all pertinent clinical information, including history, physical exam and plan: Yes Notes (Text): 07/25/18 10:12 History of DVT/PE Respiratory failure s/p intubation with recent extubation Pancreatitis secondary to ETOH use Colitis - Advance to puree diet as per FINISHED CLOTH EXAMINER recommendations - Continue with antibiotic therapy - ETOH cessation counseling - Patient will benefit from additional outpatient follow up after resolution of acute medical issues - No further planned GI intervention, will sign off case. Please reconsult as necessary, thank you.
[2018-07-25] MEDS ORDERED: Potassium Chloride 20 mEq ER Tab PO SCH (10:58)
--- NOTE | 2018-07-25 11:28 | CP.CCUPN ---
<Juan Carlos Qureshi - Last Filed: 07/25/18 11:41> CCU Subjective - Physician Review Subjective (Free Text): Juan Carlos Qureshi, PGY1 ICU Progress Note for Dr. Bacon Patient was seen and examined at bedside this morning. No adverse overnight events. Vital signs stable. BP is 119/38, afebrile overngiht. Patient is AAOx3. She denies sob, cp, n/v/d, fevers, chills, numbness/tingling of the extremities. Patient is making good urine output in vazquez. R-IJ is also in place. A full 12 point ROS was conducted and unremarkable except as stated above. CCU Objective - Vital Signs / Intake & Output Intake and Output (Last 8hrs): Intake & Output 07/24/18 07/25/18 07/25/18 22:59 06:59 14:59 Intake Total 1850 Output Total 2150 Balance -300 Intake: IV 1400 ANTIBIOTIC 500 Right Internal Jugular 900 Oral 450 Output: Urine 2150 2-way Urethral 2150 Other: # Bowel Movements 2 - Physical Exam Head: Positive for: Other (Bruising on the right scalp) Pupils: Positive for: PERRL Conjunctiva: Positive for: Normal Mouth: Positive for: Moist Mucous Membranes Neck: Positive for: Other (R-IJ in place) Respiratory/Chest: Positive for: Clear to Auscultation. Negative for: Respiratory Distress, Wheezes, Rales, Retracting, Rhonchi Cardiovascular: Positive for: Normal S1, S2, Peripheal Pulses Present Abdomen: Negative for: Tenderness, Distention, Peritoneal Signs, Guarding, Mass/Organomegaly Upper Extremity: Positive for: NORMAL PULSES, Other (Improved motor strength of bilateral upper extremities. ). Negative for: Cyanosis, Edema Lower Extremity: Positive for: NORMAL PULSES, Other (Improved ROM and motor strength in lower extremities bilaterally. ). Negative for: Edema, CALF TENDERNESS Skin: Positive for: Warm, Dry, Other (Bruising on the scalp, right thoracic region, sacrum, lateral maleoli, and bilateral knees (w/ swelling)) Psychiatric: Positive for: Alert, Oriented x 3 - Medications Active Medications: Active Medications Generic Name Dose Route Start Last Admin Trade Name Freq PRN Reason Stop Dose Admin Albuterol/Ipratropium 3 ml 07/22/18 14:00 07/25/18 07:33 Duoneb 3 Mg/0.5 Mg (3 Ml) Ud IH 3 ml [id number] MELY Administration Furosemide 20 mg 07/24/18 12:15 07/25/18 05:07 Lasix IV 20 mg Q12H MELY Administration Heparin Sodium (Porcine) 5,000 units 07/24/18 22:00 07/25/18 09:57 Heparin SC 5,000 units Q12 MELY Administration Protocol Piperacillin Sod/Tazobactam Sod 100 mls @ 25 mls/hr 07/22/18 11:00 07/25/18 10:02 Zosyn 3.375 In Ns 100ml IVPB 25 mls/hr Q8H MELY Administration Protocol Pantoprazole Sodium 40 mg 07/26/18 06:00 Protonix Ec Tab PO 0600 MELY Potassium Chloride 40 meq 07/25/18 12:30 K-Dur 20 Meq Er Tab PO 07/25/18 12:31 ONCE ONE Potassium Chloride 40 meq 07/25/18 10:58 K-Dur 20 Meq Er Tab PO QID MELY - Patient Studies Lab Studies: Microbiology Studies 07/20/18 16:01 Blood Culture - Preliminary Blood-Venous NO GROWTH AFTER 4 DAYS 07/20/18 12:08 Blood Culture - Preliminary Blood-Venous NO GROWTH AFTER 4 DAYS Lab Studies 07/25/18 07/25/18 07/24/18 Range/Units 07:30 07:30 23:58 WBC 10.2 (4.5-11.0) 10^3/uL RBC 2.81 L (3.5-6.1) 10^6/uL Hgb 8.9 L (12.0-16.0) g/dL Hct 26.7 L (36.0-48.0) % MCV 95.0 (80.0-105.0) fl MCH 31.7 (25.0-35.0) pg MCHC 33.3 (31.0-37.0) g/dl RDW 16.7 H (11.5-14.5) % Plt Count 122 (120.0-450.0) 10^3/uL MPV 10.8 (7.0-11.0) fl Sodium 144 (132-148) mmol/L Potassium 2.9 L* (3.6-5.0) mmol/L Chloride 109 H (98-107) mmol/L Carbon Dioxide 34 H (21-33) mmol/L Anion Gap 3 L (10-20) BUN 23 H (7-21) mg/dL Creatinine 0.9 (0.7-1.2) mg/dl Est GFR ( Amer) > 60 Est GFR (Non-Af Amer) > 60 POC Glucose (mg/dL) 118 H (65-110) mg/dL Random Glucose 72 (70-110) mg/dL Calcium 7.8 L (8.4-10.5) mg/dL Phosphorus 2.0 L (2.5-4.5) mg/dL Magnesium 1.8 (1.7-2.2) mg/dL Total Bilirubin 0.4 (0.2-1.3) mg/dL AST 36 (14-36) U/L ALT 38 (7-56) U/L Alkaline Phosphatase 61 (38-126) U/L Total Protein 4.5 L (5.8-8.3) g/dL Albumin 2.1 L (3.0-4.8) g/dL Globulin 2.4 gm/dL Albumin/Globulin Ratio 0.9 L (1.1-1.8) 07/24/18 07/24/18 07/24/18 Range/Units 19:00 18:02 12:51 WBC (4.5-11.0) 10^3/uL RBC (3.5-6.1) 10^6/uL Hgb (12.0-16.0) g/dL Hct (36.0-48.0) % MCV (80.0-105.0) fl MCH (25.0-35.0) pg MCHC (31.0-37.0) g/dl RDW (11.5-14.5) % Plt Count (120.0-450.0) 10^3/uL MPV (7.0-11.0) fl Sodium 144 (132-148) mmol/L Potassium 3.6 (3.6-5.0) mmol/L Chloride 110 H (98-107) mmol/L Carbon Dioxide 31 (21-33) mmol/L Anion Gap 7 L (10-20) BUN 23 H (7-21) mg/dL Creatinine 0.9 (0.7-1.2) mg/dl Est GFR ( Amer) > 60 Est GFR (Non-Af Amer) > 60 POC Glucose (mg/dL) 126 H 101 (65-110) mg/dL Random Glucose 144 H (70-110) mg/dL Calcium 7.5 L (8.4-10.5) mg/dL Phosphorus (2.5-4.5) mg/dL Magnesium (1.7-2.2) mg/dL Total Bilirubin (0.2-1.3) mg/dL AST (14-36) U/L ALT (7-56) U/L Alkaline Phosphatase (38-126) U/L Total Protein (5.8-8.3) g/dL Albumin (3.0-4.8) g/dL Globulin gm/dL Albumin/Globulin Ratio (1.1-1.8) Laboratory Results - last 24 hr 07/24/18 07/24/18 07/24/18 12:51 18:02 19:00 WBC RBC Hgb Hct MCV MCH MCHC RDW Plt Count MPV Sodium 144 Potassium 3.6 Chloride 110 H Carbon Dioxide 31 Anion Gap 7 L BUN 23 H Creatinine 0.9 Est GFR ( Amer) > 60 Est GFR (Non-Af Amer) > 60 POC Glucose (mg/dL) 101 126 H Random Glucose 144 H Calcium 7.5 L Phosphorus Magnesium Total Bilirubin AST ALT Alkaline Phosphatase Total Protein Albumin Globulin Albumin/Globulin Ratio 07/24/18 07/25/18 07/25/18 23:58 07:30 07:30 WBC 10.2 RBC 2.81 L Hgb 8.9 L Hct 26.7 L MCV 95.0 MCH 31.7 MCHC 33.3 RDW 16.7 H Plt Count 122 MPV 10.8 Sodium 144 Potassium 2.9 L* Chloride 109 H Carbon Dioxide 34 H Anion Gap 3 L BUN 23 H Creatinine 0.9 Est GFR ( Amer) > 60 Est GFR (Non-Af Amer) > 60 POC Glucose (mg/dL) 118 H Random Glucose 72 Calcium 7.8 L Phosphorus 2.0 L Magnesium 1.8 Total Bilirubin 0.4 AST 36 ALT 38 Alkaline Phosphatase 61 Total Protein 4.5 L Albumin 2.1 L Globulin 2.4 Albumin/Globulin Ratio 0.9 L Fingerstick Blood Sugar Results: 206 Review of Systems - Review of Systems All systems: reviewed and no additional remarkable complaints except (as per HPI) Critical Care Progress Note - Extremities/Vascular Does the Patient have a Central Venous Catheter?: Yes Insertion Site: Internal Jugular Vein Does the Patient need a Central Venous Catheter?: No (Will plan to remove central line) Does the Patient have a Vazquez Catheter?: Yes Does the Patient need a Vazquez Catheter?: No (Vazquez will be removed today) - Prophylaxis GI Prophylaxis GI: PPI - Prophylaxis DVT Prophylaxis DVT: Heparin SQ - Nutrition Nutrition: Nutrition Category Date Time Status Heart Healthy Diet [DIET] Diets 07/24/ Dinner Active Assessment/Plan - Assessment and Plan (Free Text) Assessment: Patient is a 57 y/o F with PMHx asthma, 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 Patient was found to be hypothermic on presentation and intubated as a result of unresponsiveness. Patient was also found to be in shock during presentation. ICU was consulted for management of distributive shock, severe hypothermia, and pancreatitis which has improved. Patient was successfully extubated. Plan: Neuro: - AAOx3 - Severe Hypothermia - resolved - Stroke workup - negative - Neurology consulted. Recs appreciated. Cardio: - Distributive Shock with Multiorgan Dysfunction - Improved - Patient is off pressors and normotensive. Consider removal of R-IJ central line. - Maintain MAP > 65 Pulm: - Chest CT (07/24): negative for PE. However it did indicate large bilateral pleural effusions. - c/w Lasix 20mg IVP q12 - Fluids discontinued because of patient's pleural effusions - Venous doppler was negative for DVT. CT Chest negative for PE. - Maintain SaO2 > 92% GI: - Pancreatitis is likely due to heavy alcohol intoxication prior to patient's fall/unresponsiveness for x4 days - tolerating Heart Healthy Diet appropriately - Speech/Swallow eval was passed - CT A/P (07/20): pancreatitis - GI and Surgery on consult, no further recommendations. - GI ppx with PTX Renal: - Hypokalemia - K was 2.9; replete with oral solution; will f/u bmp in the afternoon - AUBREY - resolved - magnesium repleted - 1g Mg - Good urine output; 700cc urine seen in vazquez overnight. Discontinued vazquez - Nephrology recs appreciated. ID: - Patient is on zosyn (Day #5). Follow up ID recommendations in regards to antibiotic course/discontinuation. - Afebrile, no leukocytosis - ID consulted. Recs appreciated - UCx and MRSA negative - Blood cx negative x2 (prelim) after 4 days Endo: - Maintain euglycemia, blood glucose 140-180 as per NICE-SUGAR trial - Patient is euglycemic Heme: - LE venous doppler negative for DVT - Hgb stable at 8.9 - Patient has Hx of DVT/PE (on coumadin) since 09/2017 - DVT ppx with heparin sc and scds Dispo: Patient's vital signs are stable. She is tolerating her diet. No acute distress. Labs and imaging were reviewed. Will follow up on afternoon labs to see if potassium was adequately repleted; if so then patient is safe for transfer to remote telemetry. Case was discussed and reviewed with Attending Physician, Dr. Bacon <Ender Bacon - Last Filed: 07/25/18 12:35> CCU Objective - Vital Signs / Intake & Output Intake and Output (Last 8hrs): Intake & Output 07/24/18 07/25/18 07/25/18 22:59 06:59 14:59 Intake Total 1850 Output Total 2150 Balance -300 Intake: IV 1400 ANTIBIOTIC 500 Right Internal Jugular 900 Oral 450 Output: Urine 2150 2-way Urethral 2150 Other: # Bowel Movements 2 - Medications Active Medications: Active Medications Generic Name Dose Route Start Last Admin Trade Name Freq PRN Reason Stop Dose Admin Albuterol/Ipratropium 3 ml 07/22/18 14:00 07/25/18 07:33 Duoneb 3 Mg/0.5 Mg (3 Ml) Ud IH 3 ml [id number] MELY Administration Furosemide 20 mg 07/24/18 12:15 07/25/18 05:07 Lasix IV 20 mg Q12H MELY Administration Heparin Sodium (Porcine) 5,000 units 07/24/18 22:00 07/25/18 09:57 Heparin SC 5,000 units Q12 MELY Administration Protocol Piperacillin Sod/Tazobactam Sod 100 mls @ 25 mls/hr 07/22/18 11:00 07/25/18 10:02 Zosyn 3.375 In Ns 100ml IVPB 25 mls/hr Q8H MELY Administration Protocol Pantoprazole Sodium 40 mg 07/26/18 06:00 Protonix Ec Tab PO 0600 MELY Potassium Chloride 40 meq 07/25/18 12:30 K-Dur 20 Meq Er Tab PO 07/25/18 12:31 ONCE ONE Potassium Chloride 40 meq 07/25/18 14:00 Potassium Chloride Oral Soln PO QID MELY - Patient Studies Lab Studies: Microbiology Studies 07/20/18 12:08 Blood Culture - Final Blood-Venous NO GROWTH AFTER 5 DAYS Gram Stain - Final TEST NOT PERFORMED 07/20/18 16:01 Blood Culture - Preliminary Blood-Venous NO GROWTH AFTER 4 DAYS Lab Studies 07/25/18 07/25/18 07/24/18 Range/Units 07:30 07:30 23:58 WBC 10.2 (4.5-11.0) 10^3/uL RBC 2.81 L (3.5-6.1) 10^6/uL Hgb 8.9 L (12.0-16.0) g/dL Hct 26.7 L (36.0-48.0) % MCV 95.0 (80.0-105.0) fl MCH 31.7 (25.0-35.0) pg MCHC 33.3 (31.0-37.0) g/dl RDW 16.7 H (11.5-14.5) % Plt Count 122 (120.0-450.0) 10^3/uL MPV 10.8 (7.0-11.0) fl Sodium 144 (132-148) mmol/L Potassium 2.9 L* (3.6-5.0) mmol/L Chloride 109 H (98-107) mmol/L Carbon Dioxide 34 H (21-33) mmol/L Anion Gap 3 L (10-20) BUN 23 H (7-21) mg/dL Creatinine 0.9 (0.7-1.2) mg/dl Est GFR ( Amer) > 60 Est GFR (Non-Af Amer) > 60 POC Glucose (mg/dL) 118 H (65-110) mg/dL Random Glucose 72 (70-110) mg/dL Calcium 7.8 L (8.4-10.5) mg/dL Phosphorus 2.0 L (2.5-4.5) mg/dL Magnesium 1.8 (1.7-2.2) mg/dL Total Bilirubin 0.4 (0.2-1.3) mg/dL AST 36 (14-36) U/L ALT 38 (7-56) U/L Alkaline Phosphatase 61 (38-126) U/L Total Protein 4.5 L (5.8-8.3) g/dL Albumin 2.1 L (3.0-4.8) g/dL Globulin 2.4 gm/dL Albumin/Globulin Ratio 0.9 L (1.1-1.8) 07/24/18 07/24/18 07/24/18 Range/Units 19:00 18:02 12:51 WBC (4.5-11.0) 10^3/uL RBC (3.5-6.1) 10^6/uL Hgb (12.0-16.0) g/dL Hct (36.0-48.0) % MCV (80.0-105.0) fl MCH (25.0-35.0) pg MCHC (31.0-37.0) g/dl RDW (11.5-14.5) % Plt Count (120.0-450.0) 10^3/uL MPV (7.0-11.0) fl Sodium 144 (132-148) mmol/L Potassium 3.6 (3.6-5.0) mmol/L Chloride 110 H (98-107) mmol/L Carbon Dioxide 31 (21-33) mmol/L Anion Gap 7 L (10-20) BUN 23 H (7-21) mg/dL Creatinine 0.9 (0.7-1.2) mg/dl Est GFR ( Amer) > 60 Est GFR (Non-Af Amer) > 60 POC Glucose (mg/dL) 126 H 101 (65-110) mg/dL Random Glucose 144 H (70-110) mg/dL Calcium 7.5 L (8.4-10.5) mg/dL Phosphorus (2.5-4.5) mg/dL Magnesium (1.7-2.2) mg/dL Total Bilirubin (0.2-1.3) mg/dL AST (14-36) U/L ALT (7-56) U/L Alkaline Phosphatase (38-126) U/L Total Protein (5.8-8.3) g/dL Albumin (3.0-4.8) g/dL Globulin gm/dL Albumin/Globulin Ratio (1.1-1.8) Laboratory Results - last 24 hr 07/24/18 07/24/18 07/24/18 12:51 18:02 19:00 WBC RBC Hgb Hct MCV MCH MCHC RDW Plt Count MPV Sodium 144 Potassium 3.6 Chloride 110 H Carbon Dioxide 31 Anion Gap 7 L BUN 23 H Creatinine 0.9 Est GFR ( Amer) > 60 Est GFR (Non-Af Amer) > 60 POC Glucose (mg/dL) 101 126 H Random Glucose 144 H Calcium 7.5 L Phosphorus Magnesium Total Bilirubin AST ALT Alkaline Phosphatase Total Protein Albumin Globulin Albumin/Globulin Ratio 07/24/18 07/25/18 07/25/18 23:58 07:30 07:30 WBC 10.2 RBC 2.81 L Hgb 8.9 L Hct 26.7 L MCV 95.0 MCH 31.7 MCHC 33.3 RDW 16.7 H Plt Count 122 MPV 10.8 Sodium 144 Potassium 2.9 L* Chloride 109 H Carbon Dioxide 34 H Anion Gap 3 L BUN 23 H Creatinine 0.9 Est GFR ( Amer) > 60 Est GFR (Non-Af Amer) > 60 POC Glucose (mg/dL) 118 H Random Glucose 72 Calcium 7.8 L Phosphorus 2.0 L Magnesium 1.8 Total Bilirubin 0.4 AST 36 ALT 38 Alkaline Phosphatase 61 Total Protein 4.5 L Albumin 2.1 L Globulin 2.4 Albumin/Globulin Ratio 0.9 L Critical Care Progress Note - Nutrition Nutrition: Nutrition Category Date Time Status Heart Healthy Diet [DIET] Diets 07/24/18 Dinner Active Assessment/Plan - Assessment and Plan (Free Text) Plan: Patient seen and examined on rounds with resident, agree with note with following additions/exceptions: Patient is 57yo female with PMhx of etOH abuse, DVT PE on Coumadin, admitted with severe hypothermia, distributive shock, Pancreatitis. Labs, imaging, chart reviewed Currently afebrile, BP stable, comfortable in NAD, AAOx3, doing well Cultures thus far negative Duplex LE neg for DVT Pancreatitis Renal failure, resolved Hypokalemia EtOH abuse Hypomagnesemia Hypothermia, resolved Distributive shock, resolved Recommend: - supp o2 as needed, duonebs PRN - consider DC abx - DC Central line - Replete K, Mg - Lasix 20mg IV BID - monitor HH - FS control - follow up neorulogy - CIWA protocol - GI ppx - DVT ppx - Repeat afternoon labs, possible transfer to telemetry
[2018-07-25] MEDS ORDERED: Potassium Chloride 20 mEq ER Tab PO ONE (12:30)
[2018-07-25 13:51] LABS: BLOOD UREA NITROGEN 21 mg/dL (7-21); GFR NON-AFRICAN AMERICAN > 60
[2018-07-25] MEDS: Potassium Chloride 40 mEq/30 ml LIQ UD PO SCH ×3 (17:37→21:38)
--- NOTE | 2018-07-25 19:23 | CP.PCM.PN ---
Subjective - Date & Time of Evaluation Date of Evaluation: 07/25/18 Time of Evaluation: 10:55 - Subjective Subjective: Comfortable in bed, no fevers, no abdominal pain currently. Objective - Vital Signs/Intake and Output Vital Signs (last 24 hours): Temp Pulse Resp BP Pulse Ox 97.8 F 114 H 20 119/38 L 97 07/23/18 19:00 07/24/18 18:20 07/24/18 18:20 07/25/18 05:07 07/24/18 18:20 - Medications Medications: Current Medications Albuterol/Ipratropium (Duoneb 3 Mg/0.5 Mg (3 Ml) Ud) 3 ml IH [id number] [facility] Last Admin: 07/25/18 07:33 Dose: 3 ml Furosemide (Lasix) 20 mg IV Q12H [facility] Last Admin: 07/25/18 05:07 Dose: 20 mg Heparin Sodium (Porcine) (Heparin) 5,000 units SC Q12 [facility]; Protocol Last Admin: 07/24/18 22:06 Dose: 5,000 units Piperacillin Sod/Tazobactam Sod (Zosyn 3.375 In Ns 100ml) 100 mls @ 25 mls/hr IVPB Q8H [facility]; Protocol Last Admin: 07/25/18 05:06 Dose: 25 mls/hr Lactated Ringer's (Lactated Ringer's) 1,000 mls @ 75 mls/hr IV .[id number] [facility] Last Admin: 07/24/18 22:07 Dose: 75 mls/hr Pantoprazole Sodium (Protonix Inj) 40 mg IVP Q12 [facility] Last Admin: 07/24/18 22:07 Dose: 40 mg Potassium Chloride (K-Dur 20 Meq Er Tab) 20 meq PO QID [facility] Last Admin: 07/24/18 22:06 Dose: 20 meq - Labs Labs: 07/25/18 07:30 07/24/18 19:00 PT 11.3 SECONDS (9.4-12.5) 07/20/18 16:01 INR 0.99 07/20/18 16:01 APTT 94.7 Seconds (25.1-36.5) H 07/21/18 17:07 - Constitutional Appears: Chronically Ill - Head Exam Head Exam: NORMAL INSPECTION - Neck Exam Neck Exam: absent: Meningismus - Respiratory Exam Respiratory Exam: Decreased Breath Sounds - Cardiovascular Exam Cardiovascular Exam: +S1, +S2 - GI/Abdominal Exam GI & Abdominal Exam: Soft. absent: Tenderness Assessment and Plan - Assessment and Plan (Free Text) Plan: Assessment S/P Septic shock S/P VDRF (now extubated) due to colitis and pancreatitis with possible biliary tract disease history of DVT asthma Plan continue zosyn day 5; blood cx are negative GI and surgery following will continue to monitor clinically
[2018-07-26] MEDS: Insulin Reg-LOW-Coverage SC SCH ×3 (01:39→21:57)
[2018-07-26] MEDS: Albuterol-Ipratrop 3 mg / 0.5 (3 ml) UD IH SCH ×4 (01:45→20:25)
[2018-07-26] MEDS: Piperacillin/Tazobact 3.375 gm 100 ML IVPB SCH ×3 (02:00→19:09)
[2018-07-26] MEDS: Pantoprazole 40 mg EC Tab PO SCH (05:21)
--- NOTE | 2018-07-26 05:44 | PN ---
DATE: 07/25/2018 CRITICAL CARE PROGRESS NOTE HISTORY OF PRESENT ILLNESS: This is a 57-year-old female who was examined at her bedside, in ICU bed 3, on the morning of 07/25/2018. Her case was reviewed with nurse, Swapnil Mclean. The patient is currently extubated. I witnessed her swallowing eval, and she has been cleared for a puree bland, heart-healthy diet with aspiration precautions. PHYSICAL EXAMINATION: GENERAL: The patient is alert and oriented x3, and can read her information board without difficulty. She remained weak and deconditioned, but denied any fever, chills, chest pain, or shortness of breath. VITAL SIGNS: At the time of my interview, her temperature was 97.8, respirations 15, pulse 87, and blood pressure 86/56 with a pulse ox of 95%. HEENT: Head, normocephalic, atraumatic. Eyes, no icterus. Ears, clear. Throat, noninjected. NECK: Supple. HEART: S1, S2. LUNGS: Clear. ABDOMEN: Soft. No rebound. EXTREMITIES: No edema. SKIN: Without rash. NEUROLOGICAL: Marked deconditioning. VASCULAR: Legs, warm to touch. LABORATORY DATA: White count 10,200, hemoglobin 8.9, hematocrit 26.7, platelets 122,000. Sodium 144, K 3.6, chloride 109, bicarb 33, BUN 21, creatinine 0.9, random blood sugar 109, calcium 8.0. Magnesium 1.8. Bilirubin 0.4, AST 36, ALT 38, and alk phos 61. Albumin low at 2.1. IMPRESSION: A 57-year-old female admitted with hypothermia, septic shock, and hypotension, and found to have pancreatitis. Also, CT of chest was reviewed, no evidence of pulmonary embolism and venous Dopplers of both lower extremities were negative for deep venous thrombosis. PLAN: The plan at present is to treat the patient supportively with dual nebulizer inhalational therapy, heparin subcu, insulin before meals and at bedtime, Lasix 20 mg IV every 12 hours, potassium chloride 40 mEq p.o. four times daily, Protonix 40 mg p.o. daily, and Zosyn 3.375 g IV every 8 hours under the direction of Infectious Disease. To date, blood, nasal, and urine cultures are negative. The patient will have a comprehensive metabolic panel; magnesium, phosphorus, and CBC level in the a.m. She will be scheduled for a C. difficile toxin antigen screen. She is ordered to have her Walden discontinued. Sequential compression device, antiembolism stockings have been requested, and she is ordered to be out of bed to chair and to have bedside physical therapy. Based on her clinical progress, additional diagnostic workup will be entertained. All of the above was reviewed at bedside with the patient and nurse, Vinay. All questions were answered Kena Lazo MD MTDD
[2018-07-26 06:30] LABS: HEMOGLOBIN 9.5 g/dL (12.0-16.0); MEAN CELL VOLUME 96.3 fl (80.0-105.0); MEAN CORPUSCULAR HEMOGLOBIN 31.7 pg (25.0-35.0); MEAN CORPUSCULAR HGB CONC 32.9 g/dl (31.0-37.0); MEAN PLATELET VOLUME 10.5 fl (7.0-11.0); RED CELL DISTRIBUTION WIDTH 17.4 % (11.5-14.5); WHITE BLOOD COUNT 7.8 10^3/uL (4.5-11.0)
[2018-07-26 07:04] LABS: ALB/GLOB RATIO 0.9 (1.1-1.8); ALBUMIN 2.3 g/dL (3.0-4.8); ALT/SGPT 42 U/L (7-56); AST/SGOT 42 U/L (14-36); BLOOD UREA NITROGEN 20 mg/dL (7-21); CALCIUM 8.3 mg/dL (8.4-10.5); GFR NON-AFRICAN AMERICAN > 60
[2018-07-26 09:04] LABS: IRON 38 ug/dL (45-180)
[2018-07-26 10:24] LABS: % IRON SATURATION 20 % (20-55); TOTAL IRON BINDING CAPACITY 190 ug/dL (265-497)
[2018-07-26 12:24] LABS: PROLACTIN 13.3 ng/mL (3.0-18.9)
[2018-07-26] MEDS: Potassium Chloride 40 mEq/30 ml LIQ UD PO SCH ×4 (12:35→22:09)
[2018-07-26 13:12] LABS: FOLATE 2.7 ng/mL
--- NOTE | 2018-07-26 13:33 | PN ---
DATE: 07/26/2018 SUBJECTIVE: The patient is seen in earlier today in the ICU 128, bed 3. Mrs Rice is doing well. No fevers, no chills. She is comfortable. She is extubated. PHYSICAL EXAMINATION: VITAL SIGNS: Temperature of 98, blood pressure is 104/70 and respiratory rate of 18. HEENT: Unremarkable. NECK: Supple. LUNGS: Have decreased breath sounds. HEART: Normal, S1 and S2. ABDOMEN: Soft. LABORATORY EXAMINATION: Reveals a white count of 7.8 and hemoglobin of 9. Chemistries are noted and urinalysis is noted. Toxicology is reviewed and HIV is negative. Microbiology reveals the urine cultures negative. Nares MRSA is negative and blood cultures are negative. The patient had a CAT scan of the chest which reveals no evidence of acute central pulmonary emboli, atelectasis and congestion. ASSESSMENT AND PLAN: This is a 57-year-old female with status post septic shock, status post ventilator-dependent respiratory failure, now extubated with colitis and pancreatitis, questionable biliary tract disease and on Zosyn day #6. Consider HIDA scan and GI workup and surgical evaluation and review of orders reveals Zosyn to require renewal, we will do so. Ashkan Bah MD
[2018-07-26] MEDS: metroNIDAZOLE IV 500 mg/100 ml 500 MG/100 ML BAG IVPB SCH (22:09)
[2018-07-27] MEDS: Albuterol-Ipratrop 3 mg / 0.5 (3 ml) UD IH SCH ×4 (02:00→20:40)
[2018-07-27] MEDS: Piperacillin/Tazobact 3.375 gm 100 ML IVPB SCH ×3 (03:22→20:46)
[2018-07-27] MEDS: Pantoprazole 40 mg EC Tab PO SCH (05:21)
[2018-07-27] MEDS: metroNIDAZOLE IV 500 mg/100 ml 500 MG/100 ML BAG IVPB SCH ×3 (05:23→22:25)
[2018-07-27] MEDS: Insulin Reg-LOW-Coverage SC SCH ×4 (08:21→22:20)
[2018-07-27] MEDS: Potassium Chloride 40 mEq/30 ml LIQ UD PO SCH ×4 (09:40→22:26)
--- NOTE | 2018-07-27 12:46 | CP.PCM.PN ---
Subjective - Date & Time of Evaluation Date of Evaluation: 07/27/18 Time of Evaluation: 09:40 - Subjective Subjective: No fevers, not in distress, no abdominal pain. Objective - Vital Signs/Intake and Output Vital Signs (last 24 hours): Temp Pulse Resp BP Pulse Ox 97.4 F L 108 H 24 100/59 L 100 07/25/18 16:30 07/26/18 18:00 07/26/18 14:42 07/26/18 23:15 07/26/18 14:28 Intake and Output: 07/26/18 07/27/18 18:59 06:59 Intake Total 580 Output Total 3071 Balance -2491 - Medications Medications: Current Medications Albuterol/Ipratropium (Duoneb 3 Mg/0.5 Mg (3 Ml) Ud) 3 ml IH [id number] [facility] Last Admin: 07/27/18 02:00 Dose: Not Given Furosemide (Lasix) 20 mg IV Q12H [facility] Last Admin: 07/26/18 23:15 Dose: 20 mg Heparin Sodium (Porcine) (Heparin) 5,000 units SC Q12 [facility]; Protocol Last Admin: 07/26/18 22:08 Dose: 5,000 units Piperacillin Sod/Tazobactam Sod (Zosyn 3.375 In Ns 100ml) 100 mls @ 25 mls/hr IVPB Q8H [facility]; Protocol Last Admin: 07/27/18 03:22 Dose: 25 mls/hr Metronidazole (Flagyl) 500 mg in 100 mls @ 100 mls/hr IVPB Q8 [facility]; Protocol Last Admin: 07/27/18 05:23 Dose: 100 mls/hr Insulin Human Regular (Humulin R Low) 0 units SC ACHS [facility]; Protocol Last Admin: 07/26/18 21:57 Dose: Not Given Pantoprazole Sodium (Protonix Ec Tab) 40 mg PO 0600 [facility] Last Admin: 07/27/18 05:21 Dose: 40 mg Potassium Chloride (Potassium Chloride Oral Soln) 40 meq PO QID [facility] Last Admin: 07/26/18 22:09 Dose: 40 meq - Labs Labs: 07/26/18 05:30 07/26/18 05:30 PT 11.3 SECONDS (9.4-12.5) 07/20/18 16:01 INR 0.99 07/20/18 16:01 APTT 94.7 Seconds (25.1-36.5) H 07/21/18 17:07 - Constitutional Appears: Chronically Ill - Head Exam Head Exam: NORMAL INSPECTION - Respiratory Exam Respiratory Exam: Decreased Breath Sounds - Cardiovascular Exam Cardiovascular Exam: +S1, +S2 - GI/Abdominal Exam GI & Abdominal Exam: Soft. absent: Tenderness Assessment and Plan - Assessment and Plan (Free Text) Plan: Assessment S/P Septic shock S/P VDRF (now extubated) due to colitis and pancreatitis with possible biliary tract disease history of DVT asthma Plan continue zosyn day 7; blood cx are negative GI and surgery following and may consider HIDA scan will continue to monitor clinically
--- NOTE | 2018-07-27 13:13 | PN ---
DATE: 07/26/2018 LOCATION: ICU, bed #3. SUBJECTIVE: Her case was reviewed in detail with nurse, Juhi Justice, registered nurse. The patient is conversant, alert and oriented x3. She denies fever, chills, chest pain or shortness of breath and is tolerating pureed diet. PHYSICAL EXAMINATION: VITAL SIGNS: She is in a normal sinus rhythm, temperature 97.4, respirations 14, pulse 84 and blood pressure 92/55. Pulse ox 100% on 2 liters nasal O2. HEAD: Normocephalic, atraumatic. EYES: No icterus. NECK: Supple. HEART: S1, S2. LUNGS: Clear. ABDOMEN: Soft. EXTREMITIES: No edema. SKIN: Without rash. NEUROLOGIC: Deconditioned. VASCULAR: Legs warm to touch. PSYCHOLOGIC: Alert and oriented x3. LABORATORY DATA: White count 7800, hemoglobin 9.5, hematocrit 28.9, platelets 141,000. Sodium 143, K 4.3, chloride 109, bicarb 35, BUN 20, creatinine 0.9, random blood sugar 73, calcium 8.3. Phosphorous 2.3, magnesium 2.2. Iron 38, TIBC 190, percent saturation 20. Bilirubin 0.4, AST 42, ALT 42, alk phos 65, albumin 2.3. Urinalysis showed moderate bacteria. Urine culture, no growth. MRSA of the nares, none detected. Blood cultures, no growth in 5 days and C. Diff toxin antigen and antibody showed that stool was positive for C. Diff antigen, negative for toxin. IMPRESSION: This is a 57-year-old female admitted with hypothermia; hypotension; respiratory insufficiency; pancreatitis; acute renal failure, resolved; now with CT of the chest showing no evidence of pulmonary embolism and venous Doppler studies negative for deep venous thrombosis. Normal 2-D echocardiography, but chest x-ray showing pleural effusions after fluid resuscitation. PLAN: The plan at present is to continue dual nebulizers, IV Flagyl for C. diff toxin antigen positivity, subcu heparin, insulin coverage, IV Lasix, oral potassium, Protonix and IV Zosyn under the direction of Dr. Bah from Infectious Disease. The patient is scheduled to have a repeat C. diff toxin antigen for completeness sake. She has been scheduled for a mammography when able because of an increased density of her right breast tissue greater than left noted by Dr. Anthony Corral on radiology evaluation. This was discussed with the patient was in agreement with proceeding with this evaluation. She continues on a heart healthy, pureed diet. She remains on swallowing precautions. She is wearing antiembolism stockings and is scheduled for bedside physical therapy. Based on clinical progress, additional diagnostic workup and testing will be entertained. The patient may require subacute rehab based on clinical progress. This will be discussed with Social Service when medically stable. Kena Lazo MD
--- NOTE | 2018-07-27 13:26 | PN ---
DATE: 07/27/2018 SUBJECTIVE: This 57-year-old female continues to slowly improve. She is examined in bed 3 of the ICU on the morning of 07/27/2018. Today, she is noted to have sinus rhythm on the surveillance monitor. She remains afebrile. Respiratory rate 23, pulse 102 and blood pressure 111/62. Physical exam is unchanged. Sodium 143, K 4.3, chloride 109, bicarb 35, BUN 20, creatinine 0.9, random blood sugar 73. White count 7800, hemoglobin 9.5, hematocrit 28.9, MCV 96 and platelets 141. IMPRESSION: This is a 57-year-old female status post admission for hypothermia; altered mental status; respiratory failure requiring intubation, now extubated with comorbidities of pancreatitis; anemia of acute illness and increased breast density tissue noted on CT of the chest awaiting routine mammography with fluid overload status post fluid resuscitation, now receiving IV Lasix and oral potassium and being treated with parenteral Zosyn by Infectious Disease as well as intravenous Flagyl for newly noted Clostridium difficile toxin antigen and pancreatitis. PLAN: The plan at present is to continue pulmonary toiletry with dual nebs, IV Flagyl, IV Zosyn, subcu heparin, insulin coverage, IV Lasix, oral potassium and oral Protonix. The patient awaits her mammography. She will have serial labs. She is cleared to be transferred to the cardiac unit and will need Social Service intervention regarding consideration for acute rehab. All of the above was discussed with the patient and nursing. All questions were answered Kena Lazo MD
[2018-07-28] MEDS: Piperacillin/Tazobact 3.375 gm 100 ML IVPB SCH ×3 (02:16→22:07)
[2018-07-28] MEDS: Albuterol-Ipratrop 3 mg / 0.5 (3 ml) UD IH SCH ×4 (02:20→19:37)
[2018-07-28] MEDS: metroNIDAZOLE IV 500 mg/100 ml 500 MG/100 ML BAG IVPB SCH ×3 (06:22→22:09)
[2018-07-28] MEDS: Pantoprazole 40 mg EC Tab PO SCH (06:22)
[2018-07-28] MEDS: Insulin Reg-LOW-Coverage SC SCH ×4 (09:07→22:30)
[2018-07-28] MEDS: Potassium Chloride 40 mEq/30 ml LIQ UD PO SCH ×4 (09:46→22:09)
[2018-07-28] MEDS ORDERED: Sodium Chloride 0.9% 500 ML IV STA (10:23)
--- NOTE | 2018-07-28 11:23 | PN ---
DATE: 07/28/2018 SUBJECTIVE: This 57-year-old female remains hospitalized in ICU bed #3. She denies any fever, chills, chest pain, or shortness of breath. She is waiting to be transferred to the cardiac unit and a mammogram that was ordered because of an abnormal chest CT, report remains pending. PHYSICAL EXAMINATION: GENERAL: She is alert and oriented x3. VITAL SIGNS: She remains with a temperature of 98.1, respirations 14, pulse 75, and blood pressure 99/62. Physical exam is unchanged. LABORATORY DATA: White count 7800, hemoglobin 9.5, hematocrit 28.9, platelets 141,000. Random blood sugar 105. Sodium 143, K 4.3, chloride 109, bicarb 35, BUN 20, creatinine 0.9, calcium 8.3, phosphorous 2.3, magnesium 2.2. Procalcitonin level is low at 0.07. T4 is normal at 5.8. Prolactin level is normal at 13.3. Vitamin B12 957. Folic acid 2.7. IMPRESSION: A 57-year-old female admitted with hypothermia, respiratory failure, now extubated and comorbidities of pancreatitis and fluid overload, status post fluid resuscitation. PLAN: Continue dual nebulizer, IV Flagyl, subcu heparin, insulin coverage, IV Lasix, oral potassium, Protonix, and Zosyn. Based on clinical progress, additional diagnostic workup will be entertained. All of the above was reviewed with the patient and she is in agreement with the need for her mammogram. Kena Lazo MD MTDD
--- NOTE | 2018-07-28 15:31 | RAD ---
Date of service: 07/28/2018 HISTORY: drs order COMPARISON: 07/24/2018 FINDINGS: LUNGS: No active pulmonary disease. PLEURA: No significant pleural effusion identified, no pneumothorax apparent. CARDIOVASCULAR: No aortic atherosclerotic calcification present. Normal cardiac size. Severe vascular and interstitial congestion OSSEOUS STRUCTURES: No significant abnormalities. VISUALIZED UPPER ABDOMEN: Normal. OTHER FINDINGS: None. IMPRESSION: Severe vascular and interstitial congestion
[2018-07-29] MEDS: Albuterol-Ipratrop 3 mg / 0.5 (3 ml) UD IH SCH ×4 (01:04→19:20)
[2018-07-29] MEDS: Piperacillin/Tazobact 3.375 gm 100 ML IVPB SCH ×3 (04:27→18:01)
[2018-07-29] MEDS: metroNIDAZOLE IV 500 mg/100 ml 500 MG/100 ML BAG IVPB SCH (05:38)
[2018-07-29] MEDS: Pantoprazole 40 mg EC Tab PO SCH (05:39)
--- NOTE | 2018-07-29 08:03 | PN ---
DATE: 07/28/2018 SUBJECTIVE: The patient is in bed in no acute distress, nontoxic. OBJECTIVE: On exam, temperature is 97, blood pressure is 75/40, respiratory rate of 18. Examination of HEENT is unremarkable. NECK: Supple. LUNGS: Have decreased breath sounds. HEART: Normal S1, S2. ABDOMEN: Soft, nontender. LABORATORY DATA: Laboratory examination reveals a white count of 7.8, hemoglobin of 9, platelets of 141. Chemistries are noted with a BUN of 20, creatinine of 0.9. Urinalysis is noted. Toxicology is reviewed. Serology is noted. Microbiology is reviewed. ASSESSMENT AND PLAN: This is a 57-year-old female who was seen earlier this morning in room 123, no acute distress, status post septic shock, status post ventilatory/respiratory failure extubated, colitis, pancolitis, possible biliary tract disease, history of deep venous thrombosis, asthma on Zosyn, and overall prognosis is poor for chronically ill, debilitated patient. Ashkan Bah MD
[2018-07-29] MEDS: Insulin Reg-LOW-Coverage SC SCH ×4 (09:32→21:26)
[2018-07-29 09:47] LABS: EOS # 0.2 (0.0-0.7); EOS % 1.5 % (1.5-5.0); GRAN # 9.19 (1.4-6.5); GRAN % 73.3 % (50.0-68.0); HEMOGLOBIN 8.7 g/dL (12.0-16.0); LYMPH # 1.6 (1.2-3.4); MEAN CELL VOLUME 96.7 fl (80.0-105.0); MEAN CORPUSCULAR HEMOGLOBIN 32.2 pg (25.0-35.0); MEAN CORPUSCULAR HGB CONC 33.3 g/dl (31.0-37.0); MEAN PLATELET VOLUME 9.9 fl (7.0-11.0); MONO # 1.5 (0.1-0.6); MONO % 12.2 % (1.0-6.0); RBC 2.7 10^6/uL (3.5-6.1); RED CELL DISTRIBUTION WIDTH 17.8 % (11.5-14.5); WHITE BLOOD COUNT 12.5 10^3/uL (4.5-11.0)
[2018-07-29 10:01] LABS: ALB/GLOB RATIO 0.9 (1.1-1.8); ALBUMIN 2.3 g/dL (3.0-4.8); ALT/SGPT 34 U/L (7-56); AST/SGOT 30 U/L (14-36); BLOOD UREA NITROGEN 17 mg/dL (7-21); CALCIUM 8.4 mg/dL (8.4-10.5); GFR NON-AFRICAN AMERICAN > 60
[2018-07-29] MEDS: Potassium Chloride 40 mEq/30 ml LIQ UD PO SCH (11:36)
--- NOTE | 2018-07-29 12:54 | CP.PCM.PN ---
Subjective - Date & Time of Evaluation Date of Evaluation: 07/29/18 Time of Evaluation: 11:30 - Subjective Subjective: Comfortable in bed, no fevers, no abdominal pain. Objective - Vital Signs/Intake and Output Vital Signs (last 24 hours): Temp Pulse Resp BP Pulse Ox 97.3 F L 86 18 90/56 L 99 07/28/18 09:00 07/29/18 01:00 07/29/18 01:00 07/29/18 01:00 07/29/18 01:00 Intake and Output: 07/28/18 07/29/18 18:59 06:59 Intake Total 200 Output Total 1200 Balance -1000 - Medications Medications: Current Medications Albuterol/Ipratropium (Duoneb 3 Mg/0.5 Mg (3 Ml) Ud) 3 ml IH [id number] [facility] Last Admin: 07/29/18 01:04 Dose: 3 ml Furosemide (Lasix) 20 mg IV Q12H [facility] Last Admin: 07/28/18 23:40 Dose: Not Given Heparin Sodium (Porcine) (Heparin) 5,000 units SC Q12 [facility]; Protocol Last Admin: 07/28/18 22:09 Dose: 5,000 units Piperacillin Sod/Tazobactam Sod (Zosyn 3.375 In Ns 100ml) 100 mls @ 25 mls/hr IVPB Q8H [facility]; Protocol Last Admin: 07/29/18 04:27 Dose: 25 mls/hr Insulin Human Regular (Humulin R Low) 0 units SC ACHS [facility]; Protocol Last Admin: 07/28/18 22:30 Dose: Not Given Pantoprazole Sodium (Protonix Ec Tab) 40 mg PO 0600 [facility] Last Admin: 07/29/18 05:39 Dose: 40 mg Potassium Chloride (Potassium Chloride Oral Soln) 40 meq PO QID [facility] Last Admin: 07/28/18 22:09 Dose: 40 meq - Labs Labs: 07/26/18 05:30 07/26/18 05:30 PT 11.3 SECONDS (9.4-12.5) 07/20/18 16:01 INR 0.99 07/20/18 16:01 APTT 94.7 Seconds (25.1-36.5) H 07/21/18 17:07 - Constitutional Appears: Chronically Ill - Respiratory Exam Respiratory Exam: Decreased Breath Sounds - Cardiovascular Exam Cardiovascular Exam: +S1, +S2 - GI/Abdominal Exam GI & Abdominal Exam: Soft. absent: Tenderness Assessment and Plan - Assessment and Plan (Free Text) Plan: Assessment S/P Septic shock S/P VDRF (now extubated) due to colitis and pancreatitis with possible biliary tract disease history of DVT asthma Plan continue zosyn day 9 for 10-14 days; blood cx are negative GI and surgery following and may consider HIDA scan will continue to monitor clinically
--- NOTE | 2018-07-29 20:48 | CP.PCM.PN ---
Subjective - Date & Time of Evaluation Date of Evaluation: 07/29/18 Time of Evaluation: 10:00 - Subjective Subjective: Providing primary medical coverage for Dr. Lazo; 57 yo F w/ pmh of asthma and DVT, initially presented with AMS, now S/P Septic shock, S/P VDRF (now extubated) due to colitis and pancreatitis with possible biliary tract disease; Per nursing staff, patient did not want to get out of bed yesterday; at baseline walks without assistance; tolerating diet; no more diarrhea; breathing stable; Objective - Vital Signs/Intake and Output Vital Signs (last 24 hours): Temp Pulse Resp BP Pulse Ox 98 F 107 H 26 H 80/44 L 99 07/29/18 17:25 07/29/18 16:00 07/29/18 16:00 07/29/18 16:00 07/29/18 16:00 Intake and Output: 07/29/18 07/30/18 18:59 06:59 Intake Total 700 Output Total 620 Balance 80 - Medications Medications: Current Medications Albuterol/Ipratropium (Duoneb 3 Mg/0.5 Mg (3 Ml) Ud) 3 ml IH [id number] [facility] Last Admin: 07/29/18 19:20 Dose: 3 ml Furosemide (Lasix) 20 mg IV Q12H [facility] Last Admin: 07/28/18 23:40 Dose: Not Given Heparin Sodium (Porcine) (Heparin) 5,000 units SC Q12 [facility]; Protocol Last Admin: 07/29/18 10:43 Dose: 5,000 units Piperacillin Sod/Tazobactam Sod (Zosyn 3.375 In Ns 100ml) 100 mls @ 25 mls/hr IVPB Q8H [facility]; Protocol Last Admin: 07/29/18 18:01 Dose: 25 mls/hr Insulin Human Regular (Humulin R Low) 0 units SC ACHS [facility]; Protocol Last Admin: 07/29/18 16:31 Dose: Not Given Pantoprazole Sodium (Protonix Ec Tab) 40 mg PO 0600 [facility] Last Admin: 07/29/18 05:39 Dose: 40 mg Potassium Chloride (Potassium Chloride Oral Soln) 40 meq PO QID [facility] Last Admin: 07/29/18 11:36 Dose: Not Given - Labs Labs: 07/29/18 09:30 12/07/18 09:30 PT 11.3 SECONDS (9.4-12.5) 07/20/18 16:01 INR 0.99 07/20/18 16:01 APTT 94.7 Seconds (25.1-36.5) H 07/21/18 17:07 - Constitutional Appears: Non-toxic, No Acute Distress - Eye Exam Eye Exam: Normal appearance - ENT Exam ENT Exam: Mucous Membranes Moist - Respiratory Exam Respiratory Exam: Clear to Ausculation Bilateral. absent: Respiratory Distress - Cardiovascular Exam Cardiovascular Exam: RRR, +S1, +S2 - GI/Abdominal Exam GI & Abdominal Exam: Soft. absent: Distended, Tenderness - Extremities Exam Additional comments: no significant leg edema; - Neurological Exam Neurological Exam: Alert, Awake, Oriented x3 - Psychiatric Exam Psychiatric exam: Normal Mood. absent: Agitated - Skin Skin Exam: Warm. absent: Cyanosis Assessment and Plan (1) Septic shock Assessment & Plan: Resolving, ID recommending continuing 14 days of antibiotics with zosyn, possibility of biliary tract disease; otherwise, current hypotensive readings do not match clinical presentation (mental status normal, conversing without difficulty); will monitor; Status: Acute (2) Hyperkalemia Assessment & Plan: Patient had been on aggressive potassium supplementation, will hold; renal function is normal so K should clear spontaneously; Status: Acute (3) Hypotension Assessment & Plan: See above; will monitor; Status: Acute (4) Pancreatitis Assessment & Plan: Resolved; thought to be secondary to ETOH abuse; Status: Acute (5) DVT (deep venous thrombosis) Assessment & Plan: Previous history, was on AC; evidence of pulm htn on echo; currently off AC; CTA not showing any acute PE; may benefit from VQ scan to look for chronic thromboembolic disease; Status: Acute
[2018-07-30] MEDS: Albuterol-Ipratrop 3 mg / 0.5 (3 ml) UD IH SCH ×4 (01:29→21:00)
[2018-07-30] MEDS: Piperacillin/Tazobact 3.375 gm 100 ML IVPB SCH (03:45)
[2018-07-30] MEDS: Pantoprazole 40 mg EC Tab PO SCH (05:44)
[2018-07-30 06:07] LABS: EOS # 0.2 (0.0-0.7); EOS % 2.6 % (1.5-5.0); GRAN # 6.34 (1.4-6.5); GRAN % 68.7 % (50.0-68.0); HEMOGLOBIN 9.2 g/dL (12.0-16.0); LYMPH # 1.7 (1.2-3.4); LYMPH % 18.1 % (22.0-35.0); MEAN CELL VOLUME 96.6 fl (80.0-105.0); MEAN CORPUSCULAR HEMOGLOBIN 31.7 pg (25.0-35.0); MEAN CORPUSCULAR HGB CONC 32.9 g/dl (31.0-37.0); MEAN PLATELET VOLUME 9.8 fl (7.0-11.0); MONO % 10.6 % (1.0-6.0); RBC 2.9 10^6/uL (3.5-6.1); RED CELL DISTRIBUTION WIDTH 17.8 % (11.5-14.5); WHITE BLOOD COUNT 9.2 10^3/uL (4.5-11.0)
[2018-07-30 06:10] LABS: BLOOD UREA NITROGEN 15 mg/dL (7-21); CALCIUM 8.9 mg/dL (8.4-10.5); GFR NON-AFRICAN AMERICAN > 60
[2018-07-30] MEDS ORDERED: Albumin Human 5% (12.5 gm/250 ml) IV ONE (06:34)
[2018-07-30] MEDS: Insulin Reg-LOW-Coverage SC SCH ×4 (08:14→22:13)
[2018-07-30] MEDS: Vancomycin 25 MG/ML PO SCH ×3 (13:33→22:39)
--- NOTE | 2018-07-30 16:46 | PN ---
DATE: 07/30/2018 SUBJECTIVE: The patient is seen in bed, in no acute distress, nontoxic. Seen in the ICU 128, bed 3. OBJECTIVE: VITAL SIGNS: Temperature is 98, blood pressure is 100/60, respiratory rate of 22, heart rate of 94. HEENT: Unremarkable. NECK: Supple. LUNGS: Have decreased breath sounds. HEART: Normal S1, S2. ABDOMEN: Soft, nontender. LABORATORY EXAMINATION: Reveals a white count of 9.2, hemoglobin of 9 and platelets of 368. Coagulation is noted. Chemistries reveals a BUN of 15, creatinine of 0.9. HIV is negative. Microbiology reveals the patient's. stool C. Diff antigen is positive. Toxin is negative. Blood cultures are negative. Review of orders reveals the patient to be on Zosyn. The patient had a chest x-ray which showed no active lung disease. ASSESSMENT AND PLAN This is a 57-year-old female status post septic shock, status post ventilatory-dependent respiratory failure and extubated, comfortable with colitis and pancreatitis, possible biliary tract disease and day #10 of Zosyn and she appears to be comfortable and concerned. Now with a clostridium difficile positive. We will discontinue Zosyn, today is day #10. The patient's white count is normal. We will start p.o. vancomycin. She had episode of diarrhea with a positive antigen and we will order a HIDA scan. The patient appears to be comfortable and we will follow with you. Ashkan Bah MD
--- NOTE | 2018-07-30 22:46 | CP.PCM.PN ---
Objective - Vital Signs/Intake and Output Vital Signs (last 24 hours): Temp Pulse Resp BP Pulse Ox 97.7 F 78 28 H 101/56 L 95 07/30/18 16:00 07/30/18 18:00 07/30/18 18:00 07/30/18 18:00 07/30/18 18:00 Intake and Output: 07/30/18 07/31/18 18:59 06:59 Intake Total 760 Output Total 900 Balance -140 - Medications Medications: Current Medications Albuterol/Ipratropium (Duoneb 3 Mg/0.5 Mg (3 Ml) Ud) 3 ml IH [id number] [facility] Last Admin: 07/30/18 13:12 Dose: 3 ml Furosemide (Lasix) 20 mg IV Q12H [facility] Last Admin: 07/30/18 12:24 Dose: Not Given Heparin Sodium (Porcine) (Heparin) 5,000 units SC Q12 [facility]; Protocol Last Admin: 07/30/18 22:33 Dose: 5,000 units Insulin Human Regular (Humulin R Low) 0 units SC ACHS [facility]; Protocol Last Admin: 07/30/18 22:13 Dose: Not Given Pantoprazole Sodium (Protonix Ec Tab) 40 mg PO 0600 [facility] Last Admin: 07/30/18 05:44 Dose: 40 mg Potassium Chloride (Potassium Chloride Oral Soln) 40 meq PO QID [facility] Last Admin: 07/29/18 11:36 Dose: Not Given Vancomycin HCl (Vancocin 25 Mg/Ml (Oral Use)) 250 mg PO QID [facility]; Protocol Stop: 08/09/18 14:01 Last Admin: 07/30/18 22:39 Dose: 250 mg - Labs Labs: 07/30/18 05:30 07/30/18 05:30 PT 11.3 SECONDS (9.4-12.5) 07/20/18 16:01 INR 0.99 07/20/18 16:01 APTT 94.7 Seconds (25.1-36.5) H 07/21/18 17:07 Assessment and Plan (1) Septic shock Status: Acute (2) Hyperkalemia Status: Acute (3) Hypotension Status: Acute (4) Pancreatitis Status: Acute (5) DVT (deep venous thrombosis) Status: Acute
[2018-07-31] MEDS: Albuterol-Ipratrop 3 mg / 0.5 (3 ml) UD IH SCH ×4 (02:30→20:10)
[2018-07-31 05:36] LABS: EOS # 0.2 (0.0-0.7); EOS % 2.9 % (1.5-5.0); GRAN # 5.15 (1.4-6.5); GRAN % 65.2 % (50.0-68.0); HEMOGLOBIN 8.7 g/dL (12.0-16.0); LYMPH # 1.8 (1.2-3.4); LYMPH % 23.1 % (22.0-35.0); MEAN CELL VOLUME 95.7 fl (80.0-105.0); MEAN CORPUSCULAR HEMOGLOBIN 31.2 pg (25.0-35.0); MEAN CORPUSCULAR HGB CONC 32.6 g/dl (31.0-37.0); MEAN PLATELET VOLUME 9.5 fl (7.0-11.0); MONO # 0.7 (0.1-0.6); MONO % 8.8 % (1.0-6.0); RBC 2.79 10^6/uL (3.5-6.1); RED CELL DISTRIBUTION WIDTH 17.6 % (11.5-14.5); WHITE BLOOD COUNT 7.9 10^3/uL (4.5-11.0)
[2018-07-31 05:49] LABS: ALB/GLOB RATIO 0.9 (1.1-1.8); ALBUMIN 2.6 g/dL (3.0-4.8); ALT/SGPT 33 U/L (7-56); AST/SGOT 32 U/L (14-36); BLOOD UREA NITROGEN 15 mg/dL (7-21); CALCIUM 8.9 mg/dL (8.4-10.5); GFR NON-AFRICAN AMERICAN > 60
[2018-07-31] MEDS: Pantoprazole 40 mg EC Tab PO SCH (06:23)
[2018-07-31] MEDS: Insulin Reg-LOW-Coverage SC SCH ×4 (08:02→22:48)
[2018-07-31] MEDS: Vancomycin 25 MG/ML PO SCH ×4 (10:04→22:49)
--- NOTE | 2018-07-31 11:18 | PN ---
DATE: 07/31/2018 SUBJECTIVE: The patient seen in room 128, bed 3. PHYSICAL EXAMINATION: VITAL SIGNS: Temperature is 98. Blood pressure is 97/50, respiratory rate of 18. HEENT: Unremarkable. NECK: Supple. LUNGS: Have decreased breath sounds. HEART: Normal S1, S2. ABDOMEN: Soft, nontender. LABORATORY EXAMINATION: Reveals a white count of 7.9, hemoglobin of 8, platelets of 469. Chemistries reveals a BUN of 15, creatinine of 0.9 and urinalysis is noted. Toxicology is noted. Serology is reviewed. Microbiology reveals the patient's stool C. Diff is positive. Antigen is negative. The blood and urine cultures are negative. The MRSA screen is negative. ASSESSMENT AND PLAN: This is a 57-year-old female seen in 128, bed 3, status post septic shock, status post ventilatory dependent respiratory failure, extubated, comfortable with colitis, pancreatitis, possible biliary tract disease and received 10 days of Zosyn, now has pseudomembranous colitis, diarrhea is in improved. On day #2 of p.o. vancomycin, would complete 10 days. We will also waiting for a HIDA scan. The patient is doing much better. Check on the HIDA scan day #2 of p.o. vancomycin of 10 days. Ashkan Bah MD
--- NOTE | 2018-07-31 23:00 | CP.PCM.PN ---
Subjective - Date & Time of Evaluation Date of Evaluation: 07/31/18 Time of Evaluation: 17:00 - Subjective Subjective: Providing primary medical coverage for Dr. Lazo; 57 yo F w/ pmh of asthma and DVT, initially presented with AMS, now S/P Septic shock, S/P VDRF (now extubated) due to colitis and pancreatitis with possible biliary tract disease; Patient finally got out of bed yesterday and into chair, did not to so yet today; tolerating diet; no breathing difficulty; Objective - Vital Signs/Intake and Output Vital Signs (last 24 hours): Temp Pulse Resp BP Pulse Ox 97.9 F 102 H 22 59/50 L 100 07/31/18 16:00 07/31/18 18:00 07/31/18 17:59 07/31/18 18:00 07/31/18 16:00 Intake and Output: 07/31/18 08/01/18 18:59 06:59 Intake Total 720 Output Total 300 Balance 420 - Medications Medications: Current Medications Albuterol/Ipratropium (Duoneb 3 Mg/0.5 Mg (3 Ml) Ud) 3 ml IH [id number] [facility] Last Admin: 07/31/18 20:10 Dose: 3 ml Furosemide (Lasix) 20 mg IV Q12H [facility] Last Admin: 07/31/18 11:49 Dose: Not Given Heparin Sodium (Porcine) (Heparin) 5,000 units SC Q12 [facility]; Protocol Last Admin: 07/31/18 10:04 Dose: 5,000 units Insulin Human Regular (Humulin R Low) 0 units SC ACHS [facility]; Protocol Last Admin: 07/31/18 17:20 Dose: 1 unit Pantoprazole Sodium (Protonix Ec Tab) 40 mg PO 0600 [facility] Last Admin: 07/31/18 06:23 Dose: 40 mg Potassium Chloride (Potassium Chloride Oral Soln) 40 meq PO QID [facility] Last Admin: 07/29/18 11:36 Dose: Not Given Vancomycin HCl (Vancocin 25 Mg/Ml (Oral Use)) 250 mg PO QID [facility]; Protocol Stop: 08/09/18 14:01 Last Admin: 07/31/18 17:21 Dose: 250 mg - Labs Labs: 07/31/18 05:00 07/31/18 05:00 PT 11.3 SECONDS (9.4-12.5) 07/20/18 16:01 INR 0.99 07/20/18 16:01 APTT 94.7 Seconds (25.1-36.5) H 07/21/18 17:07 - Constitutional Appears: Non-toxic, No Acute Distress - Eye Exam Eye Exam: Normal appearance - Respiratory Exam Respiratory Exam: Clear to Ausculation Bilateral. absent: Respiratory Distress - Cardiovascular Exam Cardiovascular Exam: RRR, +S1, +S2 - GI/Abdominal Exam GI & Abdominal Exam: Soft. absent: Distended, Tenderness - Exam Exam: absent: Bladder Distension - Extremities Exam Additional comments: no leg edema; - Neurological Exam Neurological Exam: Alert, Awake - Psychiatric Exam Psychiatric exam: Normal Mood. absent: Agitated - Skin Skin Exam: Warm. absent: Cyanosis Assessment and Plan (1) Septic shock Assessment & Plan: Resolved; still with positive C diff Ag; started on PO vanco yesterday, off all other antibiotics; will f/u with ID; Status: Acute (2) Hyperkalemia Assessment & Plan: Resolved with volume repletion; holding further diuretics for now; Status: Acute (3) Hypotension Assessment & Plan: Readings are doubtful as patient remains asymptomatic; normal mentation; given IV albumin yesterday with mild improvement in serum albumin level; -advancing to soft diet; Status: Acute (4) Pancreatitis Status: Resolved (5) DVT (deep venous thrombosis) Assessment & Plan: Lower ext DVT diagnosed about 1 year ago; had been on coumadin up until admission; unclear if DVT was considered provoked; -holding therapeutic AC for now; -continue prophylaxis with subcu heparin; Status: Chronic
[2018-08-01] MEDS: Albuterol-Ipratrop 3 mg / 0.5 (3 ml) UD IH SCH ×3 (01:30→13:40)
[2018-08-01] MEDS: Pantoprazole 40 mg EC Tab PO SCH (05:54)
[2018-08-01 06:18] LABS: EOS # 0.2 (0.0-0.7); EOS % 2.6 % (1.5-5.0); GRAN # 5.12 (1.4-6.5); HEMOGLOBIN 9.2 g/dL (12.0-16.0); LYMPH # 1.9 (1.2-3.4); LYMPH % 24.8 % (22.0-35.0); MEAN CELL VOLUME 96.2 fl (80.0-105.0); MEAN CORPUSCULAR HEMOGLOBIN 32.2 pg (25.0-35.0); MEAN CORPUSCULAR HGB CONC 33.5 g/dl (31.0-37.0); MEAN PLATELET VOLUME 9.4 fl (7.0-11.0); MONO # 0.5 (0.1-0.6); MONO % 6.6 % (1.0-6.0); RBC 2.86 10^6/uL (3.5-6.1); RED CELL DISTRIBUTION WIDTH 17.6 % (11.5-14.5); WHITE BLOOD COUNT 7.8 10^3/uL (4.5-11.0)
[2018-08-01 06:30] LABS: ALB/GLOB RATIO 0.9 (1.1-1.8); ALBUMIN 2.7 g/dL (3.0-4.8); ALT/SGPT 32 U/L (7-56); AST/SGOT 27 U/L (14-36); BLOOD UREA NITROGEN 16 mg/dL (7-21); CALCIUM 9.1 mg/dL (8.4-10.5); GFR NON-AFRICAN AMERICAN > 60
[2018-08-01] MEDS: Insulin Reg-LOW-Coverage SC SCH ×4 (07:30→22:04)
[2018-08-01] MEDS: Vancomycin 25 MG/ML PO SCH ×4 (10:00→22:55)
--- NOTE | 2018-08-01 16:11 | US ---
Date of service: 08/01/2018 HISTORY: Dense breast screening. TECHNIQUE: High-resolution ultrasound of both entire breasts was performed with real-time linear scanner. FINDINGS: RIGHT BREAST: There is heterogeneous background echotexture. At 7 o'clock position, there is a nonspecific calcification. At 10 o'clock position 7-8 cm from the nipple, there is an apparent 1.9 x 0.5 x 1.2 cm well-circumscribed ovoid nodule with heterogeneous echotexture, wider than taller without central flow on color Doppler imaging. Adjacent to this, there is a 2.7 x 1.0 x 2.1 cm lobular hypoechoic nodule, wider than taller without central flow on color Doppler imaging. No cystic masses identified. No axillary lymphadenopathy identified. LEFT BREAST: There is heterogeneous background echotexture. At 10 o'clock position, there is a 2 x 3 x 2 mm simple cyst. No solid masses identified. No axillary lymphadenopathy identified. IMPRESSION: 1. Right Breast: 1.9 x 0.6 x 1.2 cm ovoid nodule at 10 o'clock position 7-8 cm from the nipple and 2.7 x 1.0 x 2.1 cm ovoid lobular nodule adjacent to this at 10 o'clock position 7-8 cm from the nipple. These are indeterminate, ultrasound-guided core biopsy is recommended to establish histology. 2. Left Breast: 3 mm simple cyst at 10 o'clock position 2 cm from the nipple. No specific sonographic evidence for breast malignancy. BIRADS: BIRADS 4 Suspicious finding Recommendation: Biopsy is recommended. Important findings were conveyed to nurse navigator Lisbeth Bonilla on 08/01/2018 at 4:05 p.m.
--- NOTE | 2018-08-01 17:25 | RAD ---
Date of service: 08/01/2018 HISTORY: r/o chf compare to previous COMPARISON: She 07/28/2018. TECHNIQUE: Chest PA and lateral FINDINGS: LUNGS: Improving congestive heart failure/pulmonary edema. PLEURA: Small bilateral pleural effusions remain. CARDIOVASCULAR: No aortic atherosclerotic calcification present. Normal cardiac size. No pulmonary vascular congestion. OSSEOUS STRUCTURES: No significant abnormalities. VISUALIZED UPPER ABDOMEN: Normal. OTHER FINDINGS: None. IMPRESSION: Improving CHF
--- NOTE | 2018-08-01 20:04 | CP.PCM.PN ---
Subjective - Date & Time of Evaluation Date of Evaluation: 08/01/18 Time of Evaluation: 11:10 - Subjective Subjective: No abdominal pain, still with loose bowel movement. No fevers. Objective - Vital Signs/Intake and Output Vital Signs (last 24 hours): Temp Pulse Resp BP Pulse Ox 97.9 F 90 22 59/50 L 100 07/31/18 16:00 08/01/18 02:00 07/31/18 17:59 07/31/18 18:00 07/31/18 16:00 Intake and Output: 07/31/18 08/01/18 18:59 06:59 Intake Total 720 Output Total 300 Balance 420 - Medications Medications: Current Medications Albuterol/Ipratropium (Duoneb 3 Mg/0.5 Mg (3 Ml) Ud) 3 ml IH [id number] [facility] Last Admin: 07/31/18 20:10 Dose: 3 ml Furosemide (Lasix) 20 mg IV Q12H [facility] Last Admin: 07/31/18 11:49 Dose: Not Given Heparin Sodium (Porcine) (Heparin) 5,000 units SC Q12 [facility]; Protocol Last Admin: 07/31/18 22:48 Dose: 5,000 units Insulin Human Regular (Humulin R Low) 0 units SC ACHS [facility]; Protocol Last Admin: 07/31/18 22:48 Dose: Not Given Pantoprazole Sodium (Protonix Ec Tab) 40 mg PO 0600 [facility] Last Admin: 07/31/18 06:23 Dose: 40 mg Potassium Chloride (Potassium Chloride Oral Soln) 40 meq PO QID [facility] Last Admin: 07/29/18 11:36 Dose: Not Given Vancomycin HCl (Vancocin 25 Mg/Ml (Oral Use)) 250 mg PO QID [facility]; Protocol Stop: 08/09/18 14:01 Last Admin: 07/31/18 22:49 Dose: 250 mg - Labs Labs: 07/31/18 05:00 07/31/18 05:00 PT 11.3 SECONDS (9.4-12.5) 07/20/18 16:01 INR 0.99 07/20/18 16:01 APTT 94.7 Seconds (25.1-36.5) H 07/21/18 17:07 - Constitutional Appears: Chronically Ill - Head Exam Head Exam: NORMAL INSPECTION - Respiratory Exam Respiratory Exam: Decreased Breath Sounds - Cardiovascular Exam Cardiovascular Exam: +S1, +S2 - GI/Abdominal Exam GI & Abdominal Exam: Soft. absent: Tenderness Assessment and Plan - Assessment and Plan (Free Text) Assessment: Assessment S/P Septic shock S/P VDRF (now extubated) due to colitis and pancreatitis with possible biliary tract disease, now with pseudomembranous colitis history of DVT asthma Plan completed 10 days of zosyn continue PO Vancomycin day 3 for 10 days GI and surgery following and may consider HIDA scan will continue to monitor clinically
[2018-08-02] MEDS: Albuterol-Ipratrop 3 mg / 0.5 (3 ml) UD IH SCH ×4 (01:00→19:36)
[2018-08-02 06:23] LABS: HEMOGLOBIN 9.6 g/dL (12.0-16.0); MEAN CELL VOLUME 96.6 fl (80.0-105.0); MEAN CORPUSCULAR HEMOGLOBIN 32.2 pg (25.0-35.0); MEAN CORPUSCULAR HGB CONC 33.3 g/dl (31.0-37.0); MEAN PLATELET VOLUME 9.3 fl (7.0-11.0); RBC 2.98 10^6/uL (3.5-6.1); RED CELL DISTRIBUTION WIDTH 17.6 % (11.5-14.5); WHITE BLOOD COUNT 6.9 10^3/uL (4.5-11.0)
[2018-08-02 06:35] LABS: BLOOD UREA NITROGEN 15 mg/dL (7-21); CALCIUM 9.3 mg/dL (8.4-10.5); GFR NON-AFRICAN AMERICAN > 60
[2018-08-02] MEDS: Pantoprazole 40 mg EC Tab PO SCH (06:46)
[2018-08-02] MEDS: Insulin Reg-LOW-Coverage SC SCH ×4 (08:00→22:14)
[2018-08-02] MEDS: Vancomycin 25 MG/ML PO SCH ×4 (10:00→21:35)
--- NOTE | 2018-08-02 10:42 | PN ---
DATE: 08/01/2018 SUBJECTIVE: This 57-year-old female was examined at her bedside in the ICU bed #3 and case was reviewed with her Critical Care nurse. The patient remains weak and deconditioned. She is status post intubation for respiratory failure in the setting of sepsis, cholecystitis, pancreatitis and hypothermia. The patient is finally getting out of bed to chair, remains weak and deconditioned and is awaiting mammography for suspicious breast mass seen on CT of the chest. PHYSICAL EXAMINATION: GENERAL: The patient was alert, oriented and eating food without difficulty, now with the help of her dental bridges. VITAL SIGNS: Her temperature is 98.3, respirations 20, pulse 88, blood pressure 100/46 with a pulse ox of 99% in room air. Physical exam remains unchanged. CURRENT LABORATORY DATA: White count 7800, hemoglobin 9.2, hematocrit 27.5, platelets 586,000. Sodium 139, K 3.7, chloride 105, bicarb 32, BUN 16, creatinine 0.9, blood sugar 71. Bilirubin 0.2, AST 27, ALT 32 and alk phos 63. Chest x-ray was reviewed. It shows improving pulmonary vascular congestion and improving CHF. IMPRESSION: A 57-year-old female admitted with hypothermia, sepsis, pancreatitis, respiratory failure and now with improving pulmonary vascular congestion and congestive heart failure, status post treatment with diuretics with 2-D echocardiogram showing normal ejection fraction and no significant valvular pathology in a patient who is status post deep vein thrombosis and pulmonary embolism in the distant past. PLAN: Encourage this patient to be out of bed to chair and to encourage her to cooperate with physical and occupational therapy. She will continue on dual nebulizers, insulin coverage, Protonix and oral vancomycin for stool C. diff positive antigen. She is scheduled to be transferred to the [facility]. I have discussed this case with Dr. Riec from Radiology who will be performing a mammography on this patient and I will request a surgical consultation for probable biopsy of suspicious mass noted on breast ultrasound. Kena Lazo MD
--- NOTE | 2018-08-02 11:46 | PN ---
DATE: 08/02/2018 SUBJECTIVE: This 57-year-old female remains hospitalized with multiple medical problems including respiratory insufficiency, now resolved; pancreatitis, improved; hypothermia and hypotension, now with comorbidities of C. diff toxin antigen positive stools, and an abnormal breast ultrasound reportedly too debilitated to complete a mammogram today. PHYSICAL EXAMINATION: VITAL SIGNS: Temperature is 98, respirations 18, pulse 91 and blood pressure 94/59. Physical exam is stable. LABORATORY DATA: Sodium 138, K 3.8, chloride 105, bicarb 32, BUN 15, creatinine 0.8, random blood sugar 79. White blood cell count 6900, hemoglobin 9.6, hematocrit 28.8, platelets 653,000. PTT normal at 27.8. HIV-1 and 2 serologies are negative. Blood cultures, no growth. Urine culture, no growth. MRSA of the nares not detected and stool C. diff antigen positive sample from 07/28/2018. Also, breast ultrasound dated 07/29/2018 was reviewed. In the right breast at the 7 o'clock position, there is a nonspecific calcification. At the 10 o'clock position, 7 to 8 cm from the nipple, there is a 1.9 x 1.2 cm well-circumcised ovoid nodule with heterogenous echotexture. In the left breast, at the 10 o'clock position, there is a 2 x 3 x 2 simple cyst and the impression is right breast indeterminate lesion at 10 o'clock position for which an ultrasound-guided core biopsy is recommended. The left breast shows no specific sonographic evidence for breast malignancy. It is considered a BIRADS 4 suspicious finding and recommendation for biopsy is noted. IMPRESSION: A 57-year-old female, admitted with hypothermia, respiratory failure, pancreatitis, given fluid resuscitation, which then prompted pulmonary vascular congestion and volume overload for which she was treated with intravenous Lasix and oral potassium with good clinical results, now with stool C. diff toxin antigen positive stools and abnormal right breast ultrasound findings in need of core biopsy. PLAN: Continue pulmonary toiletry, oral Protonix, oral vancomycin and I will recommend oral Lasix and potassium daily until resolution of CHF. I have placed a consultation with Dr. John Alfred from Surgery to further evaluate the need for this right breast biopsy. The patient is being scheduled for a biliary scan. She is ordered to have a heart-healthy diet. She is wearing sequential compression device, antiembolism stockings and is ordered to have physical and occupational therapy. Based on her clinical progress, she will be readied for discharge to home versus subacute rehab and all of this was reviewed with the patient in detail as well as her intensive care nurse. Kena Lazo MD MTDD
--- NOTE | 2018-08-02 13:24 | CP.PCM.CON ---
History of Present Illness - History of Present Illness History of Present Illness: Surgery Consult note- Dr. Alfred 57F pmhx significant for LLE DVT, PE on 07/2017, asthma initially admitted on 07/20, for altered mental status after being found unresponsive at home. Surgery being consulted for suspicious findings on breast ultrasound at BI-RADS [address] showed an incidental finding of breast lesion. No nipple discharge, no skin changes, or rash of the breasts. PMH: stated above PSH: per EMR - left leg surgery as a child SocialHx: per EMR - weekend EtOH, tobacco 1/2 ppd for a year, and marijuana on drug screen ALL: NKDA Review of Systems - Review of Systems All systems: reviewed and no additional remarkable complaints except - Constitutional Constitutional: As Per HPI Past Patient History - Infectious Disease Hx of Infectious Diseases: None - Past Social History Smoking Status: Current Some Days Smoker - CARDIAC Hx Cardiac Disorders: No Hx Peripheral Vascular Disease: Yes (DVT ON COUMADIN) - PULMONARY Hx Respiratory Disorders: Yes (SMOKES CIGARETTES HALF A PPD.) Hx Asthma: Yes Other/Comment: PULMONARY EMBOLISM - NEUROLOGICAL Hx Neurological Disorder: No - HEENT Hx HEENT Problems: No - RENAL Hx Chronic Kidney Disease: No - ENDOCRINE/METABOLIC Hx Endocrine Disorders: No - HEMATOLOGICAL/ONCOLOGICAL Hx Blood Disorders: Yes Other/Comment: DVT - INTEGUMENTARY Hx Dermatological Problems: Yes Other/Comment: 07-20-18 MULTIPLE REDDENED SKIN ALL OVER BODY,LEGS ARMS. DTI FROM LAYING ON FLOOR FOR ALMOST 4 D OR MORE. WAS FD ON FLOOR BY SIBLING. BILATERAL SHOULDER BLADE,BILATERAL ELBOW,SPINE,LOWER BACK.BILATERAL HIP, BILATERAL KNEE, BILATERAL MALLEOLAR BONE, SACRAL AREA WITH 2 SMALL NECROTIC TISSUE.,BILATERAL BUTTOCKS AREA. HAS DTI. SKIN IS RED SWOLLEN.COOL SKIN. - MUSCULOSKELETAL/RHEUMATOLOGICAL Hx Musculoskeletal Disorders: Yes Hx Falls: Yes Hx Unsteady Gait: Yes - GASTROINTESTINAL Hx Gastrointestinal Disorders: Yes (CLOLITIS?,CHOLECYSTITIS? PANCREATITIS?) Hx Gastroesophageal Reflux: Yes - GENITOURINARY/GYNECOLOGICAL Hx Genitourinary Disorders: No - PSYCHIATRIC Hx Psychophysiologic Disorder: Yes Other/Comment: recently lost , decrease appetite, half pack smoker - SURGICAL HISTORY Hx Surgeries: No - ANESTHESIA Hx Anesthesia: No Meds Allergies/Adverse Reactions: Allergies Allergy/AdvReac Type Severity Reaction Status Date / Time No Known Allergies Allergy Verified 07/20/18 16:33 - Medications Medications: Current Medications Albuterol/Ipratropium (Duoneb 3 Mg/0.5 Mg (3 Ml) Ud) 3 ml IH [id number] [facility] Last Admin: 08/02/18 07:34 Dose: 3 ml Furosemide (Lasix) 20 mg IV Q12H [facility] Last Admin: 08/01/18 02:00 Dose: Not Given Insulin Human Regular (Humulin R Low) 0 units SC ACHS [facility]; Protocol Last Admin: 08/02/18 12:15 Dose: Not Given Pantoprazole Sodium (Protonix Ec Tab) 40 mg PO 0600 [facility] Last Admin: 08/02/18 06:46 Dose: 40 mg Potassium Chloride (Potassium Chloride Oral Soln) 40 meq PO QID [facility] Last Admin: 07/29/18 11:36 Dose: Not Given Vancomycin HCl (Vancocin 25 Mg/Ml (Oral Use)) 250 mg PO QID [facility]; Protocol Stop: 08/09/18 14:01 Last Admin: 08/02/18 10:00 Dose: Not Given Physical Exam - Constitutional Appears: No Acute Distress, Chronically Ill - Head Exam Head Exam: ATRAUMATIC - Eye Exam Eye Exam: EOMI - ENT Exam ENT Exam: Mucous Membranes Moist - Respiratory Exam Respiratory Exam: NORMAL BREATHING PATTERN. absent: Accessory Muscle Use, Respiratory Distress - Cardiovascular Exam Cardiovascular Exam: +S1, +S2. absent: Bradycardia, Tachycardia - GI/Abdominal Exam GI & Abdominal Exam: Soft. absent: Distended, Guarding - Extremities Exam Additional comments: Breast Exam: palpable mass on the left breast No palpable axillary lymph nodes no skin dimpling or nipple discharge - Neurological Exam Neurological exam: Altered - Skin Skin Exam: Intact, Normal Color Results - Vital Signs Recent Vital Signs: Last Vital Signs Temp 97.5 F L 08/02/18 00:00 Pulse 92 H 08/02/18 06:00 Resp 18 08/02/18 02:00 BP 94/59 L 08/02/18 02:00 Pulse Ox 96 08/02/18 02:00 - Labs Result Diagrams: 08/02/18 05:40 08/02/18 05:40 Labs: Laboratory Results - last 24 hr 08/01/18 08/01/18 08/01/18 05:20 11:28 16:12 WBC RBC Hgb Hct MCV MCH MCHC RDW Plt Count MPV APTT Sodium Potassium Chloride Carbon Dioxide Anion Gap BUN Creatinine Est GFR ( Amer) Est GFR (Non-Af Amer) POC Glucose (mg/dL) 88 122 H Random Glucose Calcium Ferritin 146.0 08/02/18 08/02/18 08/02/18 05:40 05:40 05:40 WBC 6.9 RBC 2.98 L Hgb 9.6 L Hct 28.8 L MCV 96.6 MCH 32.2 MCHC 33.3 RDW 17.6 H Plt Count 653 H MPV 9.3 APTT 27.8 Sodium 138 Potassium 3.8 Chloride 105 Carbon Dioxide 32 Anion Gap 5 L BUN 15 Creatinine 0.8 Est GFR ( Amer) > 60 Est GFR (Non-Af Amer) > 60 POC Glucose (mg/dL) Random Glucose 79 Calcium 9.3 Ferritin Assessment & Plan - Assessment and Plan (Free Text) Assessment: 57 w/ palpable breast mass US: mass suspicious BI-RADS IV Plan: - plan for bilateral mammography - pending results for mammography will consider biopsy - patient seen, examined and case discussed w[facility]
--- NOTE | 2018-08-02 13:42 | CP.PCM.CON ---
<Cortez Barksdale - Last Filed: 08/02/18 13:22> History of Present Illness - History of Present Illness History of Present Illness: Podiatry consult note for Dr. Schroeder 57 y/o F patient with PMH of asthma and DVT seen and evaluated in the bedside in the ICU for left heel painful mass. Patient is AAOX3. Patient states that she has this mass since 2 years. She states that the mass is at the same size since she discovered it. She states that it wasn't painful but lately after she got admitted to the hospital it bothers her when she attempts to walk over it. She denies any drainage or redness at or around this mass. Patient states that she is in the hospital as she was very sick and she was out of consciousness since late June. Patient denies any other pedal complaint at this time. She denies any F/N/V/C or SOB. PMH: asthma, DVT PSH: left leg surgery Allergies:NKDA SocialHx: half ppd smoker since she was at the high school, social drinker, Denies illicit drug use Review of Systems - Review of Systems Review of Systems: As per HPI - Constitutional Constitutional: As Per HPI Past Patient History - Infectious Disease Hx of Infectious Diseases: None - Past Social History Smoking Status: Current Some Days Smoker - CARDIAC Hx Cardiac Disorders: No Hx Peripheral Vascular Disease: Yes (DVT ON COUMADIN) - PULMONARY Hx Respiratory Disorders: Yes (SMOKES CIGARETTES HALF A PPD.) Hx Asthma: Yes Other/Comment: PULMONARY EMBOLISM - NEUROLOGICAL Hx Neurological Disorder: No - HEENT Hx HEENT Problems: No - RENAL Hx Chronic Kidney Disease: No - ENDOCRINE/METABOLIC Hx Endocrine Disorders: No - HEMATOLOGICAL/ONCOLOGICAL Hx Blood Disorders: Yes Other/Comment: DVT - INTEGUMENTARY Hx Dermatological Problems: Yes Other/Comment: 07-20-18 MULTIPLE REDDENED SKIN ALL OVER BODY,LEGS ARMS. DTI FROM LAYING ON FLOOR FOR ALMOST 4 D OR MORE. WAS FD ON FLOOR BY SIBLING. BILATERAL SHOULDER BLADE,BILATERAL ELBOW,SPINE,LOWER BACK.BILATERAL HIP, BILATERAL KNEE, BILATERAL MALLEOLAR BONE, SACRAL AREA WITH 2 SMALL NECROTIC TISSUE.,BILATERAL BUTTOCKS AREA. HAS DTI. SKIN IS RED SWOLLEN.COOL SKIN. - MUSCULOSKELETAL/RHEUMATOLOGICAL Hx Musculoskeletal Disorders: Yes Hx Falls: Yes Hx Unsteady Gait: Yes - GASTROINTESTINAL Hx Gastrointestinal Disorders: Yes (CLOLITIS?,CHOLECYSTITIS? PANCREATITIS?) Hx Gastroesophageal Reflux: Yes - GENITOURINARY/GYNECOLOGICAL Hx Genitourinary Disorders: No - PSYCHIATRIC Hx Psychophysiologic Disorder: Yes Other/Comment: recently lost , decrease appetite, half pack smoker - SURGICAL HISTORY Hx Surgeries: No - ANESTHESIA Hx Anesthesia: No Meds Allergies/Adverse Reactions: Allergies Allergy/AdvReac Type Severity Reaction Status Date / Time No Known Allergies Allergy Verified 07/20/18 16:33 - Medications Medications: Current Medications Albuterol/Ipratropium (Duoneb 3 Mg/0.5 Mg (3 Ml) Ud) 3 ml IH [id number] [facility] Last Admin: 08/02/18 07:34 Dose: 3 ml Furosemide (Lasix) 20 mg IV Q12H [facility] Last Admin: 08/01/18 02:00 Dose: Not Given Insulin Human Regular (Humulin R Low) 0 units SC ACHS [facility]; Protocol Last Admin: 08/02/18 12:15 Dose: Not Given Pantoprazole Sodium (Protonix Ec Tab) 40 mg PO 0600 [facility] Last Admin: 08/02/18 06:46 Dose: 40 mg Potassium Chloride (Potassium Chloride Oral Soln) 40 meq PO QID [facility] Last Admin: 07/29/18 11:36 Dose: Not Given Vancomycin HCl (Vancocin 25 Mg/Ml (Oral Use)) 250 mg PO QID [facility]; Protocol Stop: 08/09/18 14:01 Last Admin: 08/02/18 10:00 Dose: Not Given Physical Exam - Constitutional Appears: No Acute Distress - Extremities Exam Additional comments: B/L LE focused exam: Vasc: DP/PT 2/4 b/l. Cap refill < 3 sec t all digits, Warm to cool from proximal to distal b/l. No edema noted b/l. Neuro: Gross sensation intact, Protective sensation are intact. Derm: No open lesions, No clinical signs of active infection. A mass present at the medial side of the left heel, Black in color, stuck to the skin with smaller stem, No drainage or erythema around the mass. MSK: No Pain on palpating the left foot mass. Muscle power 4/5 b/l. B/L cavus foot. - Neurological Exam Neurological exam: Alert, Oriented x3 Results - Vital Signs Recent Vital Signs: Last Vital Signs Temp 97.5 F L 08/02/18 00:00 Pulse 92 H 08/02/18 06:00 Resp 18 08/02/18 02:00 BP 94/59 L 08/02/18 02:00 Pulse Ox 96 08/02/18 02:00 - Labs Result Diagrams: 08/02/18 05:40 08/02/18 05:40 Labs: Laboratory Results - last 24 hr 08/01/18 08/01/18 08/02/18 11:28 16:12 05:40 WBC RBC Hgb Hct MCV MCH MCHC RDW Plt Count MPV APTT 27.8 Sodium Potassium Chloride Carbon Dioxide Anion Gap BUN Creatinine Est GFR ( Amer) Est GFR (Non-Af Amer) POC Glucose (mg/dL) 88 122 H Random Glucose Calcium 08/02/18 08/02/18 05:40 05:40 WBC 6.9 RBC 2.98 L Hgb 9.6 L Hct 28.8 L MCV 96.6 MCH 32.2 MCHC 33.3 RDW 17.6 H Plt Count 653 H MPV 9.3 APTT Sodium 138 Potassium 3.8 Chloride 105 Carbon Dioxide 32 Anion Gap 5 L BUN 15 Creatinine 0.8 Est GFR ( Amer) > 60 Est GFR (Non-Af Amer) > 60 POC Glucose (mg/dL) Random Glucose 79 Calcium 9.3 Assessment & Plan - Assessment and Plan (Free Text) Assessment: 57 y/o F patient with PMH of asthma and DVT seen and evaluated in the bedside in the ICU for left heel painful mass. Plan: Patient seen and evaluated at the bed side. Plan discussed in details with attending Dr. Schroeder Charts, labs and vitals reviewed; Afebrile, No leukocytosis Left foot 3 views x-ray ordered LE venous duplex (07/23): No evidence of DVT Might consider bedside excision of the mass. Podiatry will continue to follow up the patient while in house. Thank you for consulting podiatry service. - Date & Time Date: 08/02/18 Time: 13:47 <Zac Schroeder - Last Filed: 08/03/18 16:55> Meds - Medications Medications: Current Medications Albuterol/Ipratropium (Duoneb 3 Mg/0.5 Mg (3 Ml) Ud) 3 ml IH [id number] [facility] Last Admin: 08/03/18 14:14 Dose: 3 ml Furosemide (Lasix) 20 mg IV Q12H [facility] Last Admin: 08/01/18 02:00 Dose: Not Given Insulin Human Regular (Humulin R Low) 0 units SC ACHS [facility]; Protocol Last Admin: 08/03/18 12:59 Dose: Not Given Pantoprazole Sodium (Protonix Ec Tab) 40 mg PO 0600 [facility] Last Admin: 08/03/18 06:00 Dose: 40 mg Potassium Chloride (Potassium Chloride Oral Soln) 40 meq PO QID [facility] Last Admin: 07/29/18 11:36 Dose: Not Given Vancomycin HCl (Vancocin 25 Mg/Ml (Oral Use)) 250 mg PO QID [facility]; Protocol Stop: 08/09/18 14:01 Last Admin: 08/03/18 13:02 Dose: 250 mg Results - Vital Signs Recent Vital Signs: Last Vital Signs Temp 98 F 08/03/18 04:00 Pulse 99 H 08/03/18 06:00 Resp 73 H 08/03/18 06:00 BP 100/31 L 08/03/18 14:00 Pulse Ox 99 08/03/18 14:00 - Labs Result Diagrams: 08/02/18 05:40 08/02/18 05:40 Attending/Attestation - Attestation I have personally seen and examined this patient.: Yes I have fully participated in the care of the patient.: Yes I have reviewed all pertinent clinical information: Yes
--- NOTE | 2018-08-02 14:09 | NM ---
Date of service: 08/02/2018 PROCEDURE: Nuclear Medicine Hepatobiliary Scan HISTORY: r/o bili ds COMPARISON: None available. TECHNIQUE: 5.3 mCi of technetium 99m Mebrofenin was administered intravenously. Planar images of the abdomen were obtained at 5 min intervals to 60 mins. Delayed images were also obtained. FINDINGS: LIVER: Timely and homogenous uptake. COMMON BILE DUCT: identified at 15 mins. GALLBLADDER: identified at 60 mins. SMALL BOWEL: Identified at 30 mins. IMPRESSION: Normal Hepatobiliary Scan. The cystic duct is patent.
--- NOTE | 2018-08-02 17:10 | CP.PCM.PN ---
Subjective - Date & Time of Evaluation Date of Evaluation: 08/02/18 Time of Evaluation: 09:40 - Subjective Subjective: Afebrile, comfortable. Objective - Vital Signs/Intake and Output Vital Signs (last 24 hours): Temp Pulse Resp BP Pulse Ox 97.6 F 103 H 15 80/44 L 75 L 08/01/18 16:00 08/01/18 18:10 08/01/18 18:10 08/01/18 18:10 08/01/18 18:10 Intake and Output: 08/01/18 08/02/18 18:59 06:59 Intake Total 660 Output Total 525 Balance 135 - Medications Medications: Current Medications Albuterol/Ipratropium (Duoneb 3 Mg/0.5 Mg (3 Ml) Ud) 3 ml IH [id number] [facility] Last Admin: 08/01/18 13:40 Dose: Not Given Furosemide (Lasix) 20 mg IV Q12H [facility] Last Admin: 08/01/18 02:00 Dose: Not Given Insulin Human Regular (Humulin R Low) 0 units SC ACHS [facility]; Protocol Last Admin: 08/01/18 16:41 Dose: Not Given Pantoprazole Sodium (Protonix Ec Tab) 40 mg PO 0600 [facility] Last Admin: 08/01/18 05:54 Dose: 40 mg Potassium Chloride (Potassium Chloride Oral Soln) 40 meq PO QID [facility] Last Admin: 07/29/18 11:36 Dose: Not Given Vancomycin HCl (Vancocin 25 Mg/Ml (Oral Use)) 250 mg PO QID [facility]; Protocol Stop: 08/09/18 14:01 Last Admin: 08/01/18 17:45 Dose: 250 mg - Labs Labs: 08/01/18 05:20 08/01/18 05:20 PT 11.3 SECONDS (9.4-12.5) 07/20/18 16:01 INR 0.99 07/20/18 16:01 APTT 94.7 Seconds (25.1-36.5) H 07/21/18 17:07 - Constitutional Appears: Chronically Ill - Head Exam Head Exam: NORMAL INSPECTION - Respiratory Exam Respiratory Exam: Decreased Breath Sounds - Cardiovascular Exam Cardiovascular Exam: +S1, +S2 - GI/Abdominal Exam GI & Abdominal Exam: Soft. absent: Tenderness Assessment and Plan - Assessment and Plan (Free Text) Plan: Assessment S/P Septic shock S/P VDRF (now extubated) due to colitis and pancreatitis with possible biliary tract disease, now with pseudomembranous colitis history of DVT asthma Plan completed 10 days of zosyn continue PO Vancomycin day 4 for 10 days GI and surgery following and may consider HIDA scan will continue to monitor clinically
[2018-08-03] MEDS: Albuterol-Ipratrop 3 mg / 0.5 (3 ml) UD IH SCH ×5 (01:58→23:25)
[2018-08-03] MEDS: Pantoprazole 40 mg EC Tab PO SCH (06:00)
[2018-08-03] MEDS: Insulin Reg-LOW-Coverage SC SCH ×4 (10:09→22:13)
[2018-08-03] MEDS: Vancomycin 25 MG/ML PO SCH ×4 (10:10→22:14)
--- NOTE | 2018-08-03 11:36 | PN ---
DATE: 08/03/2018 CRITICAL CARE PROGRESS NOTE SUBJECTIVE: This 57-year-old female was examined at bedside in ICU bed #3 on the morning of 08/03/2018. This case was reviewed in detail with Dr. John Alfred from surgery. The patient is awaiting transfer to the medical floor. She remains weak and deconditioned and apparently was too weak to complete a mammogram after right breast ultrasound identified and abnormal breast mass tissue. This was discussed with Dr. John Alfred who will be readying the patient for probable right breast tissue biopsy. PHYSICAL EXAMINATION: VITAL SIGNS: Temperature of 98, respirations 17, pulse 98 and blood pressure 100/61, and pulse ox is 100% on room air. Physical exam is unchanged. LABORATORY DATA: Shows white count 6900, hemoglobin 9.6, hematocrit 28.8, platelets 653,000. Sodium 138, K 3.8, chloride 105, bicarb 32, BUN 15, creatinine 0.8, random blood sugar 79, calcium 9.3. All liver function testing is normal including bilirubin 0.2, AST 27, ALT 32 and alk phos 63. HIDA scan was reviewed and reportedly normal with no evidence of cystic duct obstruction. The patient was seen by Dr. Schroeder from Podiatry regarding her right heel complaints and is being monitored by his team as well. IMPRESSION: This is a 57-year-old female admitted with acute renal failure secondary to rhabdomyolysis status post being found on her apartment floor for a period of over 4 days and now with comorbidities of pancreatitis improving, respiratory failure improved, hyperglycemia, volume overload and stool Clostridium difficile toxin antigen, as well as history of right breast tissue abnormality on breast ultrasound, and anemia of acute illness. The patient will continue on dual nebulizers, insulin coverage, Protonix and oral vancomycin. She is on day 4 of 10 days treatment for her Clostridium difficile toxin antigen. She has completed 10 days of IV Zosyn for her pancreatitis and is awaiting podiatric and general surgery evaluations of foot mass and abnormal right breast ultrasound report. I have spoken with psychosocial rehabilitation counselor, Paula Johns, who will be readying this patient for discharge to home and helping her with her [employer] application and all of the above was reviewed with the patient and co-consultants and all questions were answered. Kena Lazo MD [facility] # [phone] [facility]
--- NOTE | 2018-08-03 11:55 | RAD ---
Date of service: 08/03/2018 PROCEDURE: Left Foot Radiographs. HISTORY: Left heel mass COMPARISON: None. FINDINGS: BONES: There is diffuse bone demineralization. No acute displaced fracture or bone destruction. Bone alignment is normal JOINTS: Normal. SOFT TISSUES: There is an apparent subcutaneous lobular calcification in the heel. OTHER FINDINGS: None. IMPRESSION: No acute fracture or dislocation. Apparent lobular subcutaneous calcification in the heel which may represent calcified hematoma or nonspecific chronic inflammation. A dedicated CT scan without intravenous contrast is recommended for further evaluation.
--- NOTE | 2018-08-03 14:04 | CP.PCM.PN ---
Subjective - Date & Time of Evaluation Date of Evaluation: 08/03/18 Time of Evaluation: 10:50 - Subjective Subjective: afebrile, comfortable. Objective - Vital Signs/Intake and Output Vital Signs (last 24 hours): Temp Pulse Resp BP Pulse Ox 97.5 F L 98 H 18 94/59 L 96 08/02/18 00:00 08/02/18 14:00 08/02/18 02:00 08/02/18 02:00 08/02/18 02:00 Intake and Output: 08/02/18 08/02/18 06:59 18:59 Intake Total 240 Output Total 225 Balance 15 - Medications Medications: Current Medications Albuterol/Ipratropium (Duoneb 3 Mg/0.5 Mg (3 Ml) Ud) 3 ml IH [id number] [facility] Last Admin: 08/02/18 14:03 Dose: 3 ml Furosemide (Lasix) 20 mg IV Q12H [facility] Last Admin: 08/01/18 02:00 Dose: Not Given Insulin Human Regular (Humulin R Low) 0 units SC ACHS [facility]; Protocol Last Admin: 08/02/18 12:15 Dose: Not Given Pantoprazole Sodium (Protonix Ec Tab) 40 mg PO 0600 [facility] Last Admin: 08/02/18 06:46 Dose: 40 mg Potassium Chloride (Potassium Chloride Oral Soln) 40 meq PO QID [facility] Last Admin: 07/29/18 11:36 Dose: Not Given Vancomycin HCl (Vancocin 25 Mg/Ml (Oral Use)) 250 mg PO QID [facility]; Protocol Stop: 08/09/18 14:01 Last Admin: 08/02/18 14:20 Dose: 250 mg - Labs Labs: 08/02/18 05:40 08/02/18 05:40 PT 11.3 SECONDS (9.4-12.5) 07/20/18 16:01 INR 0.99 07/20/18 16:01 APTT 27.8 Seconds (25.1-36.5) 08/02/18 05:40 - Constitutional Appears: Chronically Ill - Head Exam Head Exam: NORMAL INSPECTION - Respiratory Exam Respiratory Exam: Decreased Breath Sounds - Cardiovascular Exam Cardiovascular Exam: +S1, +S2 - GI/Abdominal Exam GI & Abdominal Exam: Soft. absent: Tenderness Assessment and Plan - Assessment and Plan (Free Text) Plan: Assessment S/P Septic shock S/P VDRF (now extubated) due to colitis and pancreatitis without blockage of biliary tract disease, now with pseudomembranous colitis history of DVT asthma Plan completed 10 days of zosyn continue PO Vancomycin day 5 for 10 days HIDA scan is negative will continue to monitor clinically
--- NOTE | 2018-08-03 15:20 | CP.PCM.PN ---
Subjective - Date & Time of Evaluation Date of Evaluation: 08/03/18 Time of Evaluation: 15:18 - Subjective Subjective: Podiatry consult note for Dr. Ramírez 57 y/o F patient seen and evaluated in the bedside in the ICU for left heel painful mass. Patient is AAOX3.Patient states that the mass is still painful when she tries to step over it. Patient denies any other pedal complaint at this time. She denies any overnight F/N/V/C or SOB. Objective - Vital Signs/Intake and Output Vital Signs (last 24 hours): Temp Pulse Resp BP Pulse Ox 98 F 99 H 73 H 100/31 L 99 08/03/18 04:00 08/03/18 06:00 08/03/18 06:00 08/03/18 14:00 08/03/18 14:00 Intake and Output: 08/03/18 08/03/18 06:59 18:59 Intake Total 260 Output Total 500 Balance -240 - Medications Medications: Current Medications Albuterol/Ipratropium (Duoneb 3 Mg/0.5 Mg (3 Ml) Ud) 3 ml IH [id number] [facility] Last Admin: 08/03/18 14:14 Dose: 3 ml Furosemide (Lasix) 20 mg IV Q12H [facility] Last Admin: 08/01/18 02:00 Dose: Not Given Insulin Human Regular (Humulin R Low) 0 units SC ACHS [facility]; Protocol Last Admin: 08/03/18 12:59 Dose: Not Given Pantoprazole Sodium (Protonix Ec Tab) 40 mg PO 0600 [facility] Last Admin: 08/03/18 06:00 Dose: 40 mg Potassium Chloride (Potassium Chloride Oral Soln) 40 meq PO QID [facility] Last Admin: 07/29/18 11:36 Dose: Not Given Vancomycin HCl (Vancocin 25 Mg/Ml (Oral Use)) 250 mg PO QID [facility]; Protocol Stop: 08/09/18 14:01 Last Admin: 08/03/18 13:02 Dose: 250 mg - Labs Labs: 08/02/18 05:40 08/02/18 05:40 PT 11.3 SECONDS (9.4-12.5) 07/20/18 16:01 INR 0.99 07/20/18 16:01 APTT 27.8 Seconds (25.1-36.5) 08/02/18 05:40 - Constitutional Appears: Well - Head Exam Head Exam: ATRAUMATIC, NORMOCEPHALIC - Extremities Exam Additional comments: B/L LE focused exam: Vasc: DP/PT 2/4 b/l. Cap refill < 3 sec t all digits, Warm to cool from proximal to distal b/l. No edema noted b/l. Neuro: Gross sensation intact, Protective sensation are intact. Derm: No open lesions, No clinical signs of active infection. A mass present at the medial side of the left heel, Black in color, stuck to the skin with smaller stem, No drainage or erythema around the mass. MSK: No Pain on palpating the left foot mass. Muscle power 4/5 b/l. B/L cavus foot. - Neurological Exam Neurological Exam: Alert, Awake, Oriented x3 Assessment and Plan - Assessment and Plan (Free Text) Assessment: 57 y/o F patient seen and evaluated in the bedside in the ICU for left heel painful mass. Plan: Patient seen and evaluated at the bed side with Dr. Ramírez. Plan discussed in details with attending Dr. Ramírez Charts, labs and vitals reviewed; Afebrile, No leukocytosis Left foot 3 views x-ray: subcutaneous calcified mass, CT w/o contrast rec ommended. LE venous duplex (07/23): No evidence of DVT Explained to the patient the need to do excisional biopsy of the left foot mass. Benifits , risks and possible complications of the biopsy explained to the patient. Patient expressed verbal understanding. Patient agreed to do the biopsy. after cleaning the perim-mass area with betadine. Using sterile 15 blade and sterile suture removal kit, complete excision of the mass from the left foot was done. Hemostasis maintained by direct compression with minimal blood loss. Patient tolerated the procedure well with no complications. Patient foot dressed using betadine, DSD, ABD and kerlix. Mass sent to pathology. Ordered MRI left foot. Oredred b/l surgical shoes. Patient instucted to ambulate in the surgical shoes all the times. Patient expressed verbal understanding. Podiatry will continue to follow up the patient while in house.
[2018-08-04] MEDS: Albuterol-Ipratrop 3 mg / 0.5 (3 ml) UD IH SCH ×4 (01:50→20:13)
[2018-08-04] MEDS: Pantoprazole 40 mg EC Tab PO SCH (06:29)
--- NOTE | 2018-08-04 08:18 | CP.PCM.PN ---
Subjective - Date & Time of Evaluation Date of Evaluation: 08/04/18 Time of Evaluation: 08:15 - Subjective Subjective: Surgery Progress Note- Dr. Alfred Patient seen and examined. Patient transferred from ICU to Med/surg. New new complaints. Denies n/v/f/c Objective - Vital Signs/Intake and Output Vital Signs (last 24 hours): Temp Pulse Resp BP Pulse Ox 98.6 F 111 H 18 91/58 L 98 08/03/18 19:00 08/03/18 19:00 08/03/18 19:00 08/03/18 19:00 08/03/18 19:00 Intake and Output: 08/04/18 08/04/18 06:59 18:59 Intake Total 1120 Output Total 500 Balance 620 - Medications Medications: Current Medications Albuterol/Ipratropium (Duoneb 3 Mg/0.5 Mg (3 Ml) Ud) 3 ml IH [id number] [facility] Last Admin: 08/04/18 07:48 Dose: 3 ml Furosemide (Lasix) 20 mg IV Q12H [facility] Last Admin: 08/01/18 02:00 Dose: Not Given Insulin Human Regular (Humulin R Low) 0 units SC ACHS [facility]; Protocol Last Admin: 08/03/18 22:13 Dose: Not Given Pantoprazole Sodium (Protonix Ec Tab) 40 mg PO 0600 [facility] Last Admin: 08/04/18 06:29 Dose: 40 mg Potassium Chloride (Potassium Chloride Oral Soln) 40 meq PO QID [facility] Last Admin: 07/29/18 11:36 Dose: Not Given Vancomycin HCl (Vancocin 25 Mg/Ml (Oral Use)) 250 mg PO QID [facility]; Protocol Stop: 08/09/18 14:01 Last Admin: 08/03/18 22:14 Dose: 250 mg - Labs Labs: 08/02/18 05:40 08/02/18 05:40 PT 11.3 SECONDS (9.4-12.5) 07/20/18 16:01 INR 0.99 07/20/18 16:01 APTT 27.8 Seconds (25.1-36.5) 08/02/18 05:40 - Constitutional Appears: Non-toxic, No Acute Distress - Head Exam Head Exam: ATRAUMATIC - Eye Exam Eye Exam: EOMI. absent: Scleral icterus - ENT Exam ENT Exam: Mucous Membranes Moist - Respiratory Exam Respiratory Exam: NORMAL BREATHING PATTERN. absent: Accessory Muscle Use, Respiratory Distress - Cardiovascular Exam Cardiovascular Exam: +S1, +S2. absent: Bradycardia, Tachycardia - GI/Abdominal Exam GI & Abdominal Exam: Soft, Tenderness (diffuse mild tenderness to deep palpation). absent: Distended, Firm, Guarding, Rigid - Neurological Exam Neurological Exam: Alert, Awake - Psychiatric Exam Psychiatric exam: Normal Affect - Skin Skin Exam: Intact, Warm Additional comments: posterior optifoam in place Assessment and Plan - Assessment and Plan (Free Text) Assessment: 57F w/ breast mass Plan: - unable to perform mammogram - recommend MRI - further workup to be completed as an outpatient - no acute surgical intervention at this time - continued medical management per primary team - further recs per Dr. Alfred surgical attending PGY2
[2018-08-04] MEDS: Insulin Reg-LOW-Coverage SC SCH ×3 (08:30→17:33)
--- NOTE | 2018-08-04 09:37 | CP.PCM.PN ---
<Cortez Barksdale - Last Filed: 08/04/18 09:30> Subjective - Date & Time of Evaluation Date of Evaluation: 08/04/18 Time of Evaluation: 09:30 - Subjective Subjective: Podiatry progress note for Dr. Ramírez 57 y/o F patient seen and evaluated in the bedside 1 day s/p left heel painful mass excision. Patient is AAOX3.Patient states that she doesn't have pain at the site of the excised mass. Patient denies any other pedal complaint at this time. She denies any overnight F/N/V/C or SOB. Objective - Vital Signs/Intake and Output Vital Signs (last 24 hours): Temp Pulse Resp BP Pulse Ox 98 F 91 H 20 91/55 L 95 08/04/18 06:00 08/04/18 06:00 08/04/18 06:00 08/04/18 06:00 08/04/18 06:00 Intake and Output: 08/04/18 08/04/18 06:59 18:59 Intake Total 1120 Output Total 500 Balance 620 - Medications Medications: Current Medications Albuterol/Ipratropium (Duoneb 3 Mg/0.5 Mg (3 Ml) Ud) 3 ml IH [id number] [facility] Last Admin: 08/04/18 07:48 Dose: 3 ml Furosemide (Lasix) 20 mg IV Q12H [facility] Last Admin: 08/01/18 02:00 Dose: Not Given Insulin Human Regular (Humulin R Low) 0 units SC ACHS [facility]; Protocol Last Admin: 08/03/18 22:13 Dose: Not Given Pantoprazole Sodium (Protonix Ec Tab) 40 mg PO 0600 [facility] Last Admin: 08/04/18 06:29 Dose: 40 mg Potassium Chloride (Potassium Chloride Oral Soln) 40 meq PO QID [facility] Last Admin: 07/29/18 11:36 Dose: Not Given Vancomycin HCl (Vancocin 25 Mg/Ml (Oral Use)) 250 mg PO QID [facility]; Protocol Stop: 08/09/18 14:01 Last Admin: 08/03/18 22:14 Dose: 250 mg - Labs Labs: 08/02/18 05:40 08/02/18 05:40 PT 11.3 SECONDS (9.4-12.5) 07/20/18 16:01 INR 0.99 07/20/18 16:01 APTT 27.8 Seconds (25.1-36.5) 08/02/18 05:40 - Constitutional Appears: Well, Non-toxic, No Acute Distress - Head Exam Head Exam: ATRAUMATIC, NORMOCEPHALIC - Extremities Exam Additional comments: B/L LE focused exam: Vasc: DP/PT 2/4 b/l. Cap refill < 3 sec t all digits, Warm to cool from proximal to distal b/l. No edema noted b/l. Neuro: Gross sensation intact, Protective sensation are intact. Derm: An open wound at the site of excised mass at the left heel, Wound looks clean and dry with sharp edges, no malodor, no drainage, No bleeding, No erythema no probe to bone or tracking with 100% granular base, No clinical signs of active infection. MSK: No Pain on palpating the left foot heel wound. Muscle power 4/5 b/l. B/L cavus foot. - Neurological Exam Neurological Exam: Alert, Awake, Oriented x3 - Psychiatric Exam Psychiatric exam: Normal Affect, Normal Mood Assessment and Plan - Assessment and Plan (Free Text) Assessment: 57 y/o F patient seen and evaluated in the bedside in the ICU for left heel painful mass. Plan: Patient seen and evaluated at the bed side with Dr. Ramírez. Plan discussed in details with attending Dr. Ramírez Charts, labs and vitals reviewed; Afebrile, No leukocytosis Left foot 3 views x-ray: subcutaneous calcified mass, CT w/o contrast recommended. LE venous duplex (07/23): No evidence of DVT Patient fleft heel cleaned with saline and betadine then optifoam applied over it. Pathology report; pending. Ordered MRI left foot. Patient instructed to ambulate in the surgical shoes all the times. Ordered B/L multipodus boots. Patient instructed to wear the multipodus boots all the times while in bed Patient expressed verbal understanding. Podiatry will continue to follow up the patient while in house. <Cuca Ramírez - Last Filed: 08/15/18 14:40> Objective - Vital Signs/Intake and Output Vital Signs (last 24 hours): Temp Pulse Resp BP Pulse Ox 97.4 F L 103 H 18 132/70 97 08/15/18 07:30 08/15/18 07:30 08/15/18 07:30 08/15/18 07:30 08/15/18 07:30 Intake and Output: 08/15/18 08/15/18 06:59 18:59 Intake Total 60 Balance 60 - Medications Medications: Current Medications Acetaminophen (Tylenol 325mg Tab) 650 mg PO Q4H PRN PRN Reason: Pain, Mild (1-3) Last Admin: 08/14/18 11:11 Dose: 650 mg Collagenase (Santyl) 0 gm TOP DAILY [facility] Last Admin: 08/14/18 11:05 Dose: 1 appl Heparin Sodium (Porcine) (Heparin) 5,000 units SC Q12 [facility]; Protocol Last Admin: 08/15/18 09:12 Dose: 5,000 units Dextrose (Dextrose 5% In Water 1000 Ml) 1,000 mls @ 40 mls/hr IV .Q24H [facility] Last Admin: 08/14/18 11:04 Dose: 40 mls/hr Lorazepam (Ativan) 1 mg IVP Q6H PRN; Protocol PRN Reason: Anxiety Last Admin: 08/15/18 13:10 Dose: 1 mg Nystatin (Nystop Topical Powder) 0 gm TOP BID [facility] Last Admin: 08/15/18 09:16 Dose: 1 u Quetiapine Fumarate (Seroquel) 25 mg PO HS [facility]; Protocol Risperidone (Risperdal Tab) 0.25 mg PO AMHS [facility]; Protocol Last Admin: 08/15/18 09:12 Dose: 0.25 mg Silver Sulfadiazine (Silvadene 1% 25 Gm) 1 gm TP BID [facility] Last Admin: 08/15/18 09:16 Dose: 1 gm Thiamine HCl (Vitamin B1 Tab) 100 mg PO DAILY [facility] Last Admin: 08/15/18 09:12 Dose: 100 mg - Labs Labs: 08/13/18 14:45 08/13/18 14:45 PT 11.3 SECONDS (9.4-12.5) 07/20/18 16:01 INR 0.99 07/20/18 16:01 APTT 27.8 Seconds (25.1-36.5) 08/02/18 05:40 Attending/Attestation - Attestation I have personally seen and examined this patient.: Yes I have fully participated in the care of the patient.: Yes I have reviewed all pertinent clinical information, including history, physical exam and plan: Yes
[2018-08-04] MEDS: Vancomycin 25 MG/ML PO SCH ×2 (10:04→13:02)
--- NOTE | 2018-08-04 12:16 | PN ---
DATE: 08/04/2018 SUBJECTIVE: The patient is in bed in no acute distress, nontoxic. PHYSICAL EXAMINATION: VITAL SIGNS: On exam, temperature is 98, blood pressure is 90/50, respiratory rate of 18, heart rate of 111. HEENT: Examination of HEENT is unremarkable. NECK: Supple. LUNGS: Have decreased breath sounds. HEART: Normal S1, S2. ABDOMEN: Soft, nontender. LABORATORY DATA: Laboratory examination reveals a white count of 6.9, hemoglobin of 9, platelets of 653. Coagulation is noted. The chemistries reveals a BUN of 15, creatinine of 0.8. Urinalysis is noted and serology is negative. Microbiology reveals the stool for C. diff is positive, antigen negative toxin. Review of orders reveals the patient to be on by mouth vancomycin. ASSESSMENT/PLAN: This is a 57-year-old female with septic shock, status post ventilatory dependent respiratory failure now extubated with colitis and pancreatitis and without blockage of biliary tract disease, pseudomembranous colitis, history of DVT and asthma on day #6 of by mouth vancomycin for complete 10 days. Ashkan Bah MD
[2018-08-04] MEDS ORDERED: Collagenase 250 Units/gm Ointment(30 gm) TOP SCH (18:00)
--- NOTE | 2018-08-05 00:31 | PN ---
DATE: 08/04/2018 SUBJECTIVE: This is a 57-year-old female, was examined at her bedside on the medical mahoney on the morning of , 08/04/2018. This case was reviewed in detail with nurse[place] registered nurse. The case was also reviewed with Dr. John Alfred from Surgery. The patient remains hospitalized, weak and deconditioned and in need of physical therapy and decision regarding disposition. The patient is currently awaiting scheduling of a mammogram and then decision regarding possible biopsy of right breast tissue which on breast ultrasound showed a 1.9 x 1.2 cm oval nodule at the 10 o'clock position, 7 to 8 cm from the nipple and a 2.7 x 2.1 cm lobular nodule adjacent to the 10 o'clock position of indeterminate finding for which an ultrasound-guided core biopsy was recommended to establish histology. This was reviewed with Dr. Alfred. He is in favor of completing mammogram first and then making decision whether this will be biopsied for further analysis. The patient has been encouraged to cooperate with physical therapy and will be receiving local skin care to a sacral irritation as discussed with nurseHenrry. PHYSICAL EXAMINATION: VITAL SIGNS: Her temperature is 98, respirations 16, pulse 91, blood pressure 91/55 with a pulse ox of 95% on room air. Physical exam remains unchanged. LABORATORY DATA: White count 6900, hemoglobin 9.6, hematocrit 28.8, platelets 653,000. Sodium 136, potassium 3.8, chloride 105, bicarb 32, BUN 15, creatinine 0.8, and random blood sugar 87. IMPRESSION: The patient is status post pancreatitis, hypotension, rhabdomyolysis with acute renal failure, now resolved with comorbidities of deconditioning, abnormal right breast ultrasound, and history of fluid overload secondary to fluid resuscitation, status post septic shock. PLAN: The plan at present is to continue dual nebulizers, Lasix, Protonix, and Silvadene to skin. She is encouraged to cooperate with physical therapy. She is awaiting mammogram and breast MRI and is wearing sequential compression device and antiembolism stockings. She is being followed by Social Service regarding disposition and will need help in obtaining outpatient Medicaid insurance for medical followup in the [facility] upon discharge to home. Kena Lazo MD [facility] # [id number] ARIANNA
[2018-08-05] MEDS: Albuterol-Ipratrop 3 mg / 0.5 (3 ml) UD IH SCH ×5 (02:11→19:10)
[2018-08-05] MEDS: Pantoprazole 40 mg EC Tab PO SCH (05:40)
[2018-08-05] MEDS: Insulin Reg-LOW-Coverage SC SCH ×3 (06:32→17:46)
[2018-08-05] MEDS: Silver Sulfadiazine 1% Cream (25 gm) TP SCH ×3 (06:32→17:47)
[2018-08-05] MEDS: Vancomycin 25 MG/ML PO SCH ×4 (06:33→17:47)
[2018-08-05 07:28] LABS: MEAN CELL VOLUME 97.5 fl (80.0-105.0); MEAN CORPUSCULAR HEMOGLOBIN 31.6 pg (25.0-35.0); MEAN CORPUSCULAR HGB CONC 32.4 g/dl (31.0-37.0); MEAN PLATELET VOLUME 8.8 fl (7.0-11.0); RBC 2.85 10^6/uL (3.5-6.1); RED CELL DISTRIBUTION WIDTH 17.5 % (11.5-14.5); WHITE BLOOD COUNT 7.4 10^3/uL (4.5-11.0)
[2018-08-05 07:50] LABS: BLOOD UREA NITROGEN 19 mg/dL (7-21); CALCIUM 9.8 mg/dL (8.4-10.5); GFR NON-AFRICAN AMERICAN > 60
--- NOTE | 2018-08-05 11:04 | CP.PCM.PN ---
<Cortez Barksdale - Last Filed: 08/05/18 12:59> Subjective - Date & Time of Evaluation Date of Evaluation: 08/05/18 Time of Evaluation: 11:03 - Subjective Subjective: Podiatry progress note for Dr. Schroeder 57 y/o F patient seen and evaluated in the bedside 1 day s/p left heel painful mass excision. Patient is AAOX3.Patient states that she doesn't have pain at the site of the excised mass. Patient denies any other pedal complaint at this time. She denies any overnight F/N/V/C or SOB. Patient was wearing the multipodus boot at the visit time. Objective - Vital Signs/Intake and Output Vital Signs (last 24 hours): Temp Pulse Resp BP Pulse Ox 98.7 F 104 H 20 98/56 L 96 08/05/18 07:40 08/05/18 07:40 08/05/18 07:40 08/05/18 07:40 08/05/18 07:40 Intake and Output: 08/05/18 08/05/18 06:59 18:59 Intake Total 780 Balance 780 - Medications Medications: Current Medications Albuterol/Ipratropium (Duoneb 3 Mg/0.5 Mg (3 Ml) Ud) 3 ml IH [id number] [facility] Last Admin: 08/05/18 07:18 Dose: 3 ml Furosemide (Lasix) 20 mg IV Q12H [facility] Last Admin: 08/01/18 02:00 Dose: Not Given Insulin Human Regular (Humulin R Low) 0 units SC ACHS [facility]; Protocol Last Admin: 08/05/18 09:58 Dose: Not Given Pantoprazole Sodium (Protonix Ec Tab) 40 mg PO 0600 [facility] Last Admin: 08/05/18 05:40 Dose: 40 mg Potassium Chloride (Potassium Chloride Oral Soln) 40 meq PO QID [facility] Last Admin: 07/29/18 11:36 Dose: Not Given Silver Sulfadiazine (Silvadene 1% 25 Gm) 1 gm TP BID [facility] Last Admin: 08/05/18 09:58 Dose: 1 gm Vancomycin HCl (Vancocin 25 Mg/Ml (Oral Use)) 250 mg PO QID [facility]; Protocol Last Admin: 08/05/18 10:05 Dose: 250 mg - Labs Labs: 08/05/18 07:00 08/05/18 07:00 PT 11.3 SECONDS (9.4-12.5) 07/20/18 16:01 INR 0.99 07/20/18 16:01 APTT 27.8 Seconds (25.1-36.5) 08/02/18 05:40 - Constitutional Appears: Well, Non-toxic, No Acute Distress - Head Exam Head Exam: ATRAUMATIC, NORMOCEPHALIC - Extremities Exam Additional comments: B/L LE focused exam: Vasc: DP/PT 2/4 b/l. Cap refill < 3 sec t all digits, Warm to cool from proximal to distal b/l. No edema noted b/l. Neuro: Gross sensation intact, Protective sensation are intact. Derm: An open wound at the site of excised mass at the left heel, Wound looks clean and dry with sharp edges, no malodor, no drainage, No bleeding, No erythema no probe to bone or tracking with 100% granular base, No clinical signs of active infection. MSK: No Pain on palpating the left foot heel wound. Muscle power 4/5 b/l. B/L cavus foot. - Neurological Exam Neurological Exam: Alert, Awake, Oriented x3 - Psychiatric Exam Psychiatric exam: Normal Affect, Normal Mood Assessment and Plan - Assessment and Plan (Free Text) Assessment: 57 y/o F patient seen and evaluated in the bedside in the ICU for left heel painful mass. Plan: Patient seen and evaluated at the bed side. Plan discussed in details with attending Dr. Schroeder Charts, labs and vitals reviewed; Afebrile, No leukocytosis Left foot 3 views x-ray: subcutaneous calcified mass, CT w/o contrast recommended. LE venous duplex (07/23): No evidence of DVT Patient fleft heel cleaned with saline and betadine then optifoam applied over it. Pathology report; pending. Ordered MRI left foot. Patient instructed to ambulate in the surgical shoes all the times. Patient instructed to wear the multipodus boots all the times while in bed Patient expressed verbal understanding. Podiatry will continue to follow up the patient while in house. <Zac Schroeder - Last Filed: 08/06/18 12:41> Objective - Vital Signs/Intake and Output Vital Signs (last 24 hours): Temp Pulse Resp BP Pulse Ox 98.7 F 71 18 99/56 L 97 12/15/18 07:30 08/06/18 07:30 08/06/18 07:30 08/06/18 07:30 08/06/18 07:30 - Medications Medications: Current Medications Albuterol/Ipratropium (Duoneb 3 Mg/0.5 Mg (3 Ml) Ud) 3 ml IH [id number] [facility] Last Admin: 08/06/18 08:03 Dose: 3 ml Furosemide (Lasix) 20 mg IV Q12H [facility] Last Admin: 08/01/18 02:00 Dose: Not Given Insulin Human Regular (Humulin R Low) 0 units SC ACHS [facility]; Protocol Last Admin: 08/06/18 08:29 Dose: Not Given Pantoprazole Sodium (Protonix Ec Tab) 40 mg PO 0600 [facility] Last Admin: 08/06/18 06:45 Dose: 40 mg Potassium Chloride (Potassium Chloride Oral Soln) 40 meq PO QID [facility] Last Admin: 07/29/18 11:36 Dose: Not Given Silver Sulfadiazine (Silvadene 1% 25 Gm) 1 gm TP BID [facility] Last Admin: 08/05/18 17:47 Dose: 1 gm Vancomycin HCl (Vancocin 25 Mg/Ml (Oral Use)) 250 mg PO QID [facility]; Protocol Last Admin: 08/06/18 09:25 Dose: 250 mg - Labs Labs: 08/05/18 07:00 08/05/18 07:00 PT 11.3 SECONDS (9.4-12.5) 07/20/18 16:01 INR 0.99 07/20/18 16:01 APTT 27.8 Seconds (25.1-36.5) 08/02/18 05:40 Attending/Attestation - Attestation I have personally seen and examined this patient.: Yes I have fully participated in the care of the patient.: Yes I have reviewed all pertinent clinical information, including history, physical exam and plan: Yes
--- NOTE | 2018-08-05 11:05 | PN ---
DATE: 08/05/2018 SUBJECTIVE: This 57-year-old female remains hospitalized. She is weak and debilitated. She has remained too deconditioned to even proceed with routine mammogram or MRI of the breast. A breast ultrasound that was completed on 07/29/[address] Obando from Radiology. It is her opinion that the right breast lesion requires an ultrasound-guided core biopsy to establish histology. The patient is a service case and my concern is that she will be lost to followup if this is not completed while she is hospitalized. I have called the nurse navigator, Lisbeth Bonilla, registered nurse and nurse navigator for the [facility] at [phone] and have requested that she schedule this patient for ultrasound-guided biopsy or make arrangements how she will be managed upon either discharged to subacute rehab or discharged to home since I will no longer be following this patient as an outpatient. This was also reviewed with Kirsten Reyes, nurse in the [facility]'s [place], and it is my concern that she have a diagnostic procedure to help guide her abnormal breast ultrasound reports. PHYSICAL EXAMINATION: VITAL SIGNS: Temperature is 98.7, respirations 20, pulse 104 and blood pressure 98/56 with a pulse ox of 96% on room air. Her physical exam remains unchanged. LABORATORY DATA: Sodium of 138, K 3.8, chloride 102, bicarb 33, BUN 19, creatinine 0.9, random blood sugar 80 with calcium of 9.8. White count 7400, hemoglobin 9, hematocrit 27.8 and platelets of 577,000. IMPRESSION: A deconditioned 57-year-old, admitted with rhabdomyolysis, renal failure, now resolved and respiratory failure, pancreatitis and anemia of acute illness with marked deconditioning and admission labs consistent with marijuana abuse. PLAN: The plan at present is to continue dual nebulizer insulin coverage, Protonix, Silvadene to her affected skin and oral vancomycin for a 10-day course for stool C. diff antigen positive stools. I will ask Nursing to satisfy the issue of the abnormal right breast ultrasound findings with Radiology and Dr. Alfred from Surgery and I have asked Elizabeth Kilpatrick from Social Service to establish disposition planning for this patient who remains weak, deconditioned and unable to ambulate at this time. Overall, prognosis remains stable, but the patient will probably need subacute rehab. I have requested physchiatric and neurology consultations for completeness sake as well. Kena Lazo MD [facility]
--- NOTE | 2018-08-05 16:20 | CON ---
DATE: 08/05/2018 CHIEF COMPLAINT: Unstable gait. HISTORY OF PRESENT ILLNESS: A 57-year-old woman with past medical history of left lower extremity DVT and PE, on Coumadin, history of ETOH abuse, who is recently had underlying hypotensive episode also altered, and septic shock, and pancreatitis was just currently resolved. There was a consult for gait dysfunction. Her unstable gait is secondary to underlying decondition stance and possibly underlying neuropathy for prolonged alcohol use. Currently, she has decondition actually on her lower extremity muscles, DTRs are 2+ throughout, 1 at both knees and ankles. Otherwise, she is alert, oriented, to person, place, and year. PAST MEDICAL HISTORY: As above. SOCIAL HISTORY: No illicit drug use, smoking, or EtOH abuse. REVIEW OF SYSTEMS: A 12-point review of systems is negative except as per the HPI. FAMILY HISTORY: Noncontributory. MEDICATIONS: Medication reviewed by nurses' reconciliation sheet. LABORATORY DATA: Sodium is 138, potassium 3.8, chloride 102, carbon dioxide 33, BUN of 19, creatinine 0.9, and random glucose of 180. PHYSICAL EXAMINATION: GENERAL: The patient is seen up in bed and in no acute distress. VITAL SIGNS: Temperature of 98.7, pulse rate of 104, blood pressure 198/56, respiratory rate of 20, oxygen saturation 97% on room air. HEENT: Head is atraumatic and normocephalic. PERRLA. Extraocular muscles are intact. NECK: Supple. No JVD. No adenopathy noted. LUNGS: Clear to auscultation. No adventitious sounds. HEART: S1 and S2. Normal rate and rhythm. No murmurs, rubs, or gallops. ABDOMEN: Soft, nontender, and nondistended. Bowel sounds are present. EXTREMITIES: No clubbing. No cyanosis. Peripheral pulses 2+ felt bilaterally. NEUROLOGICAL: The patient is alert and oriented to person, place, month, and year. Speech is fluent without any errors. Recall after five minutes is 2/3. Poor attention span. Slow thought process. Cranial nerves II through XII intact. Motor Exam: Moves all extremities equally, is very deconditioned has atrophy of her muscles on her lower extremities. Sensory Exam: Decreased light touch to pinprick up to the calves bilaterally. Decreased vibration of the toes. DTRs are 2+ throughout, 1 at both knees and ankles. Coordination: [id number] intact. Gait is deferred for now. IMPRESSION: Unstable gait secondary underlying peripheral neuropathy, borderline deconditioning state. At this time, we will recommend; 1. Physical therapy for gait and coordination for muscle and strengthening exercise. We will recommend subacute rehab. 2. B-complex vitamins daily. 3. We will followup as an outpatient in regards to an EMG, nerve conduction lower extremities as for degree of neuropathy. Thank you for this consult. Lyle Hamilton MD
--- NOTE | 2018-08-05 20:39 | CP.PCM.PN ---
Subjective - Date & Time of Evaluation Date of Evaluation: 08/05/18 Time of Evaluation: 10:10 - Subjective Subjective: No fevers, not in distress, diarrhea is improved. Objective - Vital Signs/Intake and Output Vital Signs (last 24 hours): Temp Pulse Resp BP Pulse Ox 98 F 96 H 17 100/61 98 08/03/18 04:00 08/03/18 04:08 08/03/18 04:00 08/03/18 04:00 08/03/18 04:00 Intake and Output: 08/03/18 08/03/18 06:59 18:59 Intake Total 260 Output Total 500 Balance -240 - Medications Medications: Current Medications Albuterol/Ipratropium (Duoneb 3 Mg/0.5 Mg (3 Ml) Ud) 3 ml IH [id number] [facility] Last Admin: 08/03/18 07:36 Dose: 3 ml Furosemide (Lasix) 20 mg IV Q12H [facility] Last Admin: 08/01/18 02:00 Dose: Not Given Insulin Human Regular (Humulin R Low) 0 units SC ACHS [facility]; Protocol Last Admin: 08/03/18 12:59 Dose: Not Given Pantoprazole Sodium (Protonix Ec Tab) 40 mg PO 0600 [facility] Last Admin: 08/03/18 06:00 Dose: 40 mg Potassium Chloride (Potassium Chloride Oral Soln) 40 meq PO QID [facility] Last Admin: 07/29/18 11:36 Dose: Not Given Vancomycin HCl (Vancocin 25 Mg/Ml (Oral Use)) 250 mg PO QID [facility]; Protocol Stop: 08/09/18 14:01 Last Admin: 08/03/18 13:02 Dose: 250 mg - Labs Labs: 08/02/18 05:40 08/02/18 05:40 PT 11.3 SECONDS (9.4-12.5) 07/20/18 16:01 INR 0.99 07/20/18 16:01 APTT 27.8 Seconds (25.1-36.5) 08/02/18 05:40 - Constitutional Appears: Chronically Ill - Head Exam Head Exam: NORMAL INSPECTION - Respiratory Exam Respiratory Exam: Decreased Breath Sounds - Cardiovascular Exam Cardiovascular Exam: +S1, +S2 - GI/Abdominal Exam GI & Abdominal Exam: Soft. absent: Tenderness Assessment and Plan - Assessment and Plan (Free Text) Plan: Assessment S/P Septic shock S/P VDRF (now extubated) due to colitis and pancreatitis without blockage of biliary tract disease, now with pseudomembranous colitis history of DVT asthma Plan completed 10 days of zosyn continue PO Vancomycin day 7 for 10 days HIDA scan is negative will continue to monitor clinically
--- NOTE | 2018-08-05 21:05 | CON ---
DATE OF CONSULTATION: 08/05/2018 IDENTIFICATION: The patient is a 57-year-old female who is brought to [facility] after her family reported that they have been unable to reach her for several days. Paramedics found her lying on the floor unresponsive in her home with a left-sided gaze and does have altered mental status. In the emergency room, she was noted to be hypothermic. She underwent extensive workup with an abdominopelvic CT scan, which was remarkable for no evidence of obvious stroke or pneumonia, but with a sludge-filled gallbladder and possible cholecystitis along with an enlarged pancreas. She also had elevated lipase levels and is also positive for cannabinoids. I have reviewed her situation with Dr. Lazo and reviewed her chart. The patient reportedly was a high functioning woman who worked for many years and was able to take care of herself including her attire. However, she has shown now a precipitous change in her mental status such that she engages in bizarre interaction, at times looking off into space and engaging in what is thought blocking. This is in response to questions that she appears not so willing or happy to answer such as why she tested positive for marijuana, past psychiatric history, but other issues not perceived to be of particular embarrassment or accusatory. There is concern that she is physically rundown too and thus deconditioned. The patient has a right breast lesion that will require an ultrasound-guided core biopsy to establish its histology. Dr. Lazo was concerned that if she leaves the hospital, she will be lost to follow up (she does not feel like she could care for herself in any event at this juncture), and if she goes home, there will be nobody to help her manage. A nuclear body scan on 08/02/2018 showed normal hepatobiliary system with a patent cystic duct. A CT scan of her chest on 07/24/2018 showed no evidence of acute central pulmonary embolus with large bilateral effusions and mild bilateral atelectasis. There were also mild pulmonary venous congestion changes with patchy opacities scattered throughout the right lung as well as the left upper lung. A CT scan of her head performed on 07/20/2018 was limited by the patient's positioning, but there was no acute hemorrhage. The patient is being maintained on Lasix, potassium, Protonix, sulfadiazine, and vancomycin She denies a prior psychiatric history. It is unclear to me if her blocking and other eccentric behaviors are due to the psychiatric underpinning. We will await further neurologic evaluation to consider the possibility of starting the patient on a major tranquilizer (antipsychotic). Dewayne Love MD/ PhD
[2018-08-06] MEDS: Insulin Reg-LOW-Coverage SC SCH ×5 (06:44→21:43)
[2018-08-06] MEDS: Pantoprazole 40 mg EC Tab PO SCH (06:45)
[2018-08-06] MEDS: Vancomycin 25 MG/ML PO SCH ×5 (06:45→21:44)
[2018-08-06] MEDS: Albuterol-Ipratrop 3 mg / 0.5 (3 ml) UD IH SCH ×2 (08:03→14:01)
--- NOTE | 2018-08-06 09:31 | CP.PCM.PN ---
<Vane Zapata - Last Filed: 08/06/18 09:27> Subjective - Date & Time of Evaluation Date of Evaluation: 08/06/18 Time of Evaluation: 09:27 - Subjective Subjective: Podiatry progress note for Dr. Schroeder 57F patient seen and evaluated in the bedside 2 days s/p left heel painful mass excision. Patient is resting comfortably and in NAD. She denies any pain to the L heel at this time. She continues to wear multipodus boots at all times. Denies any new pedal complaints. Denies N/V/F/SOB. Objective - Vital Signs/Intake and Output Vital Signs (last 24 hours): Temp Pulse Resp BP Pulse Ox 98.7 F 71 18 99/56 L 97 08/06/18 07:30 08/06/18 07:30 08/06/18 07:30 08/06/18 07:30 08/06/18 07:30 - Medications Medications: Current Medications Albuterol/Ipratropium (Duoneb 3 Mg/0.5 Mg (3 Ml) Ud) 3 ml IH [id number] [facility] Last Admin: 08/06/18 08:03 Dose: 3 ml Furosemide (Lasix) 20 mg IV Q12H [facility] Last Admin: 08/01/18 02:00 Dose: Not Given Insulin Human Regular (Humulin R Low) 0 units SC ACHS [facility]; Protocol Last Admin: 08/06/18 08:29 Dose: Not Given Pantoprazole Sodium (Protonix Ec Tab) 40 mg PO 0600 [facility] Last Admin: 08/06/18 06:45 Dose: 40 mg Potassium Chloride (Potassium Chloride Oral Soln) 40 meq PO QID [facility] Last Admin: 07/29/18 11:36 Dose: Not Given Silver Sulfadiazine (Silvadene 1% 25 Gm) 1 gm TP BID [facility] Last Admin: 08/05/18 17:47 Dose: 1 gm Vancomycin HCl (Vancocin 25 Mg/Ml (Oral Use)) 250 mg PO QID [facility]; Protocol Last Admin: 08/06/18 09:25 Dose: 250 mg - Labs Labs: 08/05/18 07:00 08/05/18 07:00 PT 11.3 SECONDS (9.4-12.5) 07/20/18 16:01 INR 0.99 07/20/18 16:01 APTT 27.8 Seconds (25.1-36.5) 08/02/18 05:40 - Constitutional Appears: Well, Non-toxic, No Acute Distress - Head Exam Head Exam: ATRAUMATIC, NORMOCEPHALIC - Extremities Exam Additional comments: B/L LE focused exam: Vasc: DP/PT 2/4 b/l. Cap refill < 3 sec to all digits, Warm to cool from proximal to distal b/l. No edema noted b/l. MSK: No pain upon palpation to left foot heel wound. Muscle power 4/5 b/l. B Neuro: Gross and protective sensation intact. Derm: L heel wound appreciated at the site of excised mass with 100% granular base. No purulence, no malodor, no drainage, no bleeding, No erythema no probe. No clinical signs of infection. - Neurological Exam Neurological Exam: Alert, Awake, Oriented x3 - Psychiatric Exam Psychiatric exam: Normal Affect Assessment and Plan - Assessment and Plan (Free Text) Assessment: 57F patient seen and evaluated 2 days s/p L heel soft tissue mass excision Plan: Patient seen and evaluated at the bedside with Dr. Schroeder Charts, labs and vitals reviewed; Afebrile, No leukocytosis Left foot 3 views x-ray: subcutaneous calcified mass, CT w/o contrast recommended. LE venous duplex (07/23): No evidence of DVT Local wound care: L foot dressed with betadine and optifoam Pathology report; pending. MRI taken; final read pending Patient instructed to ambulate in the surgical shoes all the times. Patient instructed to wear the multipodus boots all the times while in bed <Zac Schroeder - Last Filed: 08/06/18 12:39> Objective - Vital Signs/Intake and Output Vital Signs (last 24 hours): Temp Pulse Resp BP Pulse Ox 98.7 F 71 18 99/56 L 97 08/06/18 07:30 08/06/18 07:30 08/06/18 07:30 08/06/18 07:30 08/06/18 07:30 - Medications Medications: Current Medications Albuterol/Ipratropium (Duoneb 3 Mg/0.5 Mg (3 Ml) Ud) 3 ml IH [id number] [facility] Last Admin: 08/06/18 08:03 Dose: 3 ml Furosemide (Lasix) 20 mg IV Q12H [facility] Last Admin: 08/01/18 02:00 Dose: Not Given Insulin Human Regular (Humulin R Low) 0 units SC ACHS [facility]; Protocol Last Admin: 08/06/18 08:29 Dose: Not Given Pantoprazole Sodium (Protonix Ec Tab) 40 mg PO 0600 [facility] Last Admin: 08/06/18 06:45 Dose: 40 mg Potassium Chloride (Potassium Chloride Oral Soln) 40 meq PO QID [facility] Last Admin: 07/29/18 11:36 Dose: Not Given Silver Sulfadiazine (Silvadene 1% 25 Gm) 1 gm TP BID [facility] Last Admin: 08/05/18 17:47 Dose: 1 gm Vancomycin HCl (Vancocin 25 Mg/Ml (Oral Use)) 250 mg PO QID [facility]; Protocol Last Admin: 08/06/18 09:25 Dose: 250 mg - Labs Labs: 08/05/18 07:00 08/05/18 07:00 PT 11.3 SECONDS (9.4-12.5) 07/20/18 16:01 INR 0.99 07/20/18 16:01 APTT 27.8 Seconds (25.1-36.5) 08/02/18 05:40 Attending/Attestation - Attestation I have personally seen and examined this patient.: Yes I have fully participated in the care of the patient.: Yes I have reviewed all pertinent clinical information, including history, physical exam and plan: Yes
[2018-08-06] MEDS: Silver Sulfadiazine 1% Cream (25 gm) TP SCH ×2 (10:00→19:03)
--- NOTE | 2018-08-06 10:17 | CP.PCM.PN ---
Subjective - Date & Time of Evaluation Date of Evaluation: 08/06/18 Time of Evaluation: 09:45 - Subjective Subjective: Patient had a left heel mass excised and still having some pain, no fevers, no diarrhea currently. Objective - Vital Signs/Intake and Output Vital Signs (last 24 hours): Temp Pulse Resp BP Pulse Ox 97.1 F L 127 H 20 94/55 L 97 08/05/18 14:00 08/05/18 14:00 08/05/18 14:00 08/05/18 14:00 08/05/18 14:00 Intake and Output: 08/05/18 08/06/18 18:59 06:59 Intake Total 600 Balance 600 - Medications Medications: Current Medications Albuterol/Ipratropium (Duoneb 3 Mg/0.5 Mg (3 Ml) Ud) 3 ml IH [id number] [facility] Last Admin: 08/05/18 19:10 Dose: Not Given Furosemide (Lasix) 20 mg IV Q12H [facility] Last Admin: 08/01/18 02:00 Dose: Not Given Insulin Human Regular (Humulin R Low) 0 units SC ACHS [facility]; Protocol Last Admin: 08/05/18 17:46 Dose: Not Given Pantoprazole Sodium (Protonix Ec Tab) 40 mg PO 0600 [facility] Last Admin: 08/05/18 05:40 Dose: 40 mg Potassium Chloride (Potassium Chloride Oral Soln) 40 meq PO QID [facility] Last Admin: 07/29/18 11:36 Dose: Not Given Silver Sulfadiazine (Silvadene 1% 25 Gm) 1 gm TP BID [facility] Last Admin: 08/05/18 17:47 Dose: 1 gm Vancomycin HCl (Vancocin 25 Mg/Ml (Oral Use)) 250 mg PO QID [facility]; Protocol Last Admin: 08/05/18 17:47 Dose: 250 mg - Labs Labs: 08/05/18 07:00 08/05/18 07:00 PT 11.3 SECONDS (9.4-12.5) 07/20/18 16:01 INR 0.99 07/20/18 16:01 APTT 27.8 Seconds (25.1-36.5) 08/02/18 05:40 - Constitutional Appears: Chronically Ill - Head Exam Head Exam: NORMAL INSPECTION - Respiratory Exam Respiratory Exam: Decreased Breath Sounds - Cardiovascular Exam Cardiovascular Exam: +S1, +S2 - GI/Abdominal Exam GI & Abdominal Exam: Soft. absent: Tenderness Assessment and Plan - Assessment and Plan (Free Text) Plan: Assessment S/P Septic shock S/P VDRF (now extubated) due to colitis and pancreatitis without blockage of biliary tract disease, now with pseudomembranous colitis history of DVT asthma Plan completed 10 days of zosyn continue PO Vancomycin day 8 for 10 days HIDA scan is negative will continue to monitor clinically
--- NOTE | 2018-08-06 18:24 | MRI ---
Date of service: 08/05/2018 PROCEDURE: LEFT FOOT MRI WITHOUT CONTRAST HISTORY: S/P excision of left heel mass COMPARISON: Left foot radiographs 08/03/2018. TECHNIQUE: MR examination of the left hindfoot was performed using multiplanar multisequential technique without intravenous gadolinium as requested. FINDINGS: Limited postop changes seen at the right left heel soft tissues. No suspicious signal abnormality is seen related to the calcaneus. No evidence to suggest osteomyelitis. No fracture, subluxation or dislocation. Limited joint effusions are seen at the tibiotalar and subtalar joints. Intrinsic signal throughout the Achilles tendon appears normal with the posterior plantar plate grossly intact. IMPRESSION: Limited postoperative changes seen at the posterior and inferior heel soft tissues without evidence of osteomyelitis or other destructive bony changes related to the calcaneus.
[2018-08-07] MEDS: Pantoprazole 40 mg EC Tab PO SCH (05:31)
--- NOTE | 2018-08-07 09:45 | CP.PCM.PN ---
<Vane Zapata - Last Filed: 08/07/18 09:45> Subjective - Date & Time of Evaluation Date of Evaluation: 08/07/18 Time of Evaluation: 09:42 - Subjective Subjective: Podiatry progress note: Dr. Schroeder 57F patient seen and evaluated in the bedside 3 days s/p left heel painful mass excision. Patient is resting comfortably and in NAD. She denies any acute events overnight. She states that her heel feels fine and she is not currently in any pain this morning. Denies any new pedal complaints. Denies N/V/F/SOB. Objective - Vital Signs/Intake and Output Vital Signs (last 24 hours): Temp Pulse Resp BP Pulse Ox 98.2 F 100 H 18 90/53 L 99 08/07/18 07:30 08/07/18 07:30 08/07/18 07:30 08/07/18 07:30 08/07/18 07:30 - Medications Medications: Current Medications Furosemide (Lasix) 20 mg IV Q12H [facility] Last Admin: 08/01/18 02:00 Dose: Not Given Insulin Human Regular (Humulin R Low) 0 units SC ACHS [facility]; Protocol Last Admin: 08/06/18 21:43 Dose: Not Given Pantoprazole Sodium (Protonix Ec Tab) 40 mg PO 0600 [facility] Last Admin: 08/07/18 05:31 Dose: 40 mg Potassium Chloride (Potassium Chloride Oral Soln) 40 meq PO QID [facility] Last Admin: 07/29/18 11:36 Dose: Not Given Silver Sulfadiazine (Silvadene 1% 25 Gm) 1 gm TP BID [facility] Last Admin: 08/06/18 19:03 Dose: 1 gm Vancomycin HCl (Vancocin 25 Mg/Ml (Oral Use)) 250 mg PO QID [facility]; Protocol Last Admin: 08/06/18 21:44 Dose: 250 mg - Labs Labs: 08/05/18 07:00 08/05/18 07:00 PT 11.3 SECONDS (9.4-12.5) 07/20/18 16:01 INR 0.99 07/20/18 16:01 APTT 27.8 Seconds (25.1-36.5) 08/02/18 05:40 - Constitutional Appears: Well, Non-toxic, No Acute Distress - Head Exam Head Exam: ATRAUMATIC, NORMOCEPHALIC - Extremities Exam Additional comments: B/L LE focused exam: Vasc: DP/PT 2/4 b/l. Cap refill < 3 sec to all digits, Warm to cool from proximal to distal b/l. No edema noted b/l. MSK: No pain upon palpation to left foot heel wound Neuro: Gross and protective sensation intact. Derm: L heel wound appreciated at the site of excised mass with 100% granular base. No purulence, no malodor, no drainage, no bleeding, No erythema, no probe to bone. No clinical signs of active infection. - Neurological Exam Neurological Exam: Alert, Awake, Oriented x3 - Psychiatric Exam Psychiatric exam: Normal Affect, Normal Mood Assessment and Plan - Assessment and Plan (Free Text) Assessment: 57F patient seen and evaluated 3 days s/p L heel soft tissue mass excision Plan: Patient seen and evaluated at the bedside Charts, labs and vitals reviewed; Afebrile, No leukocytosis Left foot 3 views x-ray: subcutaneous calcified mass, CT w/o contrast recommended. LE venous duplex (07/23): No evidence of DVT Local wound care: L foot dressed with betadine and optifoam Pathology report; pending. LE MRI taken; limited postoperative changes seen at the posterior and inferior heel soft tissues without evident of OM Patient instructed to ambulate in the surgical shoes all the times. Patient instructed to wear the multipodus boots all the times while in bed Patient stable from podiatry standpoint <Zac Schroeder - Last Filed: 08/09/18 12:35> Objective - Vital Signs/Intake and Output Vital Signs (last 24 hours): Temp Pulse Resp BP Pulse Ox 97.8 F 66 18 93/54 L 98 08/09/18 07:30 08/09/18 07:30 08/09/18 07:30 08/09/18 07:30 08/09/18 07:30 Intake and Output: 08/09/18 08/09/18 06:59 18:59 Intake Total 180 Balance 180 - Medications Medications: Current Medications Collagenase (Santyl) 0 gm TOP DAILY [facility] Last Admin: 08/09/18 10:32 Dose: 1 appl Silver Sulfadiazine (Silvadene 1% 25 Gm) 1 gm TP BID [facility] Last Admin: 08/09/18 10:35 Dose: 1 gm Vancomycin HCl (Vancocin 25 Mg/Ml (Oral Use)) 250 mg PO QID [facility]; Protocol Last Admin: 08/09/18 10:40 Dose: 250 mg - Labs Labs: 08/05/18 07:00 08/05/18 07:00 PT 11.3 SECONDS (9.4-12.5) 07/20/18 16:01 INR 0.99 07/20/18 16:01 APTT 27.8 Seconds (25.1-36.5) 08/02/18 05:40 Attending/Attestation - Attestation I have personally seen and examined this patient.: Yes I have fully participated in the care of the patient.: Yes I have reviewed all pertinent clinical information, including history, physical exam and plan: Yes
[2018-08-07] MEDS: Insulin Reg-LOW-Coverage SC SCH ×2 (10:45→18:57)
[2018-08-07] MEDS: Vancomycin 25 MG/ML PO SCH ×4 (10:50→22:40)
[2018-08-07] MEDS: Silver Sulfadiazine 1% Cream (25 gm) TP SCH ×2 (10:50→18:13)
--- NOTE | 2018-08-07 13:36 | PN ---
DATE: 08/07/2018 SUBJECTIVE: This 57-year-old female remains hospitalized. She remains chronically weak and deconditioned. She is tolerating diet. She has been encouraged to mobilize more. PHYSICAL EXAMINATION GENERAL: She is alert and oriented. VITAL SIGNS: Temperature is 98.2, respirations 18, pulse 100 and blood pressure 90/53 with a pulse ox of 99% room air. LABORATORY DATA: Random blood sugar is 87. IMPRESSION: Deconditioned 57-year-old female with chronic neuropathy and now stool Clostridium difficile positive antigen for which she is taking vancomycin, marked deconditioning and an abnormal right breast ultrasound for which I have requested a radiology-guided ultrasound biopsy. Pending this result, the patient will be readied for disposition planning to subacute rehabilitation or home with 24-hour supervision and the patient and nurse were counseled regarding all of the above in detail. Kena Lazo MD
--- NOTE | 2018-08-07 14:06 | PN ---
DATE: 08/06/2018 SUBJECTIVE: This 57-year-old female was examined at bedside and case was reviewed with her nurse, Areli Allen, registered nurse. The patient remains weak and deconditioned and according to co-consultants will require subacute rehab, which will need to be arranged by Social Service. PHYSICAL EXAMINATION: VITAL SIGNS: Temperature was 98.7, respirations 18, pulse 71 and blood pressure 99/56. Pulse ox 97% room air. Physical exam unchanged. IMPRESSION: A 57-year-old female admitted with rhabdomyolysis, acute renal failure, resolved, marijuana misuse, respiratory insufficiency, status post septic shock, now on oral vancomycin for stool Clostridium difficile toxin antigen and marked deconditioning. PLAN: The plan is to continue Protonix, Silvadene to skin and vancomycin orally. She is ordered to have physical therapy. She is noted by Neurology to have chronic neuropathy and will require subacute rehab and follow up with Dr. Love from Psychiatry and I will ask Social Service regarding disposition issues for this patient on 08/08/2018. Kena Lazo MD MTDElver
--- NOTE | 2018-08-07 15:02 | RAD ---
HISTORY: r/o chf COMPARISON: Chest x-ray performed 08/01/18 TECHNIQUE: Chest PA and lateral FINDINGS: LUNGS: Hyperinflation may be seen in the setting of COPD. Superior most lung apices are incompletely imaged. Biapical pleural thickening. Linear atelectasis, left mid lung zone. PLEURA: No significant pleural effusion identified. No definite pneumothorax . CARDIOVASCULAR: Heart size appears within normal limits. Atherosclerotic calcification present. OSSEOUS STRUCTURES: Degenerative changes. VISUALIZED UPPER ABDOMEN: Unremarkable. OTHER FINDINGS: None. IMPRESSION: Hyperinflation may be seen in the setting of COPD.
--- NOTE | 2018-08-07 16:44 | CP.PCM.PN ---
Subjective - Date & Time of Evaluation Date of Evaluation: 08/07/18 Time of Evaluation: 11:20 - Subjective Subjective: Still feels weak, no fevers. Objective - Vital Signs/Intake and Output Vital Signs (last 24 hours): Temp Pulse Resp BP Pulse Ox 98.7 F 71 18 99/56 L 97 08/06/18 07:30 08/06/18 07:30 08/06/18 07:30 08/06/18 07:30 08/06/18 07:30 - Medications Medications: Current Medications Albuterol/Ipratropium (Duoneb 3 Mg/0.5 Mg (3 Ml) Ud) 3 ml IH [id number] [facility] Last Admin: 08/06/18 08:03 Dose: 3 ml Furosemide (Lasix) 20 mg IV Q12H [facility] Last Admin: 08/01/18 02:00 Dose: Not Given Insulin Human Regular (Humulin R Low) 0 units SC ACHS [facility]; Protocol Last Admin: 08/06/18 08:29 Dose: Not Given Pantoprazole Sodium (Protonix Ec Tab) 40 mg PO 0600 [facility] Last Admin: 08/06/18 06:45 Dose: 40 mg Potassium Chloride (Potassium Chloride Oral Soln) 40 meq PO QID [facility] Last Admin: 07/29/18 11:36 Dose: Not Given Silver Sulfadiazine (Silvadene 1% 25 Gm) 1 gm TP BID [facility] Last Admin: 08/05/18 17:47 Dose: 1 gm Vancomycin HCl (Vancocin 25 Mg/Ml (Oral Use)) 250 mg PO QID [facility]; Protocol Last Admin: 08/06/18 09:25 Dose: 250 mg - Labs Labs: 08/05/18 07:00 08/05/18 07:00 PT 11.3 SECONDS (9.4-12.5) 07/20/18 16:01 INR 0.99 07/20/18 16:01 APTT 27.8 Seconds (25.1-36.5) 08/02/18 05:40 - Constitutional Appears: Chronically Ill - Head Exam Head Exam: NORMAL INSPECTION - Respiratory Exam Respiratory Exam: Decreased Breath Sounds - Cardiovascular Exam Cardiovascular Exam: +S1, +S2 - GI/Abdominal Exam GI & Abdominal Exam: Soft. absent: Tenderness Assessment and Plan - Assessment and Plan (Free Text) Plan: Assessment S/P Septic shock S/P VDRF (now extubated) due to colitis and pancreatitis without blockage of biliary tract disease, now with pseudomembranous colitis history of DVT asthma Plan completed 10 days of zosyn continue PO Vancomycin day 9 for 10 days HIDA scan is negative will continue to monitor clinically
[2018-08-07] MEDS: Albuterol-Ipratrop 3 mg / 0.5 (3 ml) UD IH SCH (21:22)
[2018-08-08] MEDS: Vancomycin 25 MG/ML PO SCH ×3 (10:01→17:37)
[2018-08-08] MEDS: Silver Sulfadiazine 1% Cream (25 gm) TP SCH (10:02)
--- NOTE | 2018-08-08 12:46 | CP.PCM.PN ---
Subjective - Date & Time of Evaluation Date of Evaluation: 08/08/18 Time of Evaluation: 09:30 - Subjective Subjective: Comfortable, not in distress, no fevers. Objective - Vital Signs/Intake and Output Vital Signs (last 24 hours): Temp Pulse Resp BP Pulse Ox 98.2 F 100 H 18 90/53 L 99 08/07/18 07:30 08/07/18 07:30 08/07/18 07:30 08/07/18 07:30 08/07/18 07:30 - Medications Medications: Current Medications Silver Sulfadiazine (Silvadene 1% 25 Gm) 1 gm TP BID [facility] Last Admin: 08/07/18 10:50 Dose: 1 gm Vancomycin HCl (Vancocin 25 Mg/Ml (Oral Use)) 250 mg PO QID [facility]; Protocol Last Admin: 08/07/18 15:38 Dose: 250 mg - Labs Labs: 08/05/18 07:00 08/05/18 07:00 PT 11.3 SECONDS (9.4-12.5) 07/20/18 16:01 INR 0.99 07/20/18 16:01 APTT 27.8 Seconds (25.1-36.5) 08/02/18 05:40 - Constitutional Appears: Chronically Ill - Head Exam Head Exam: NORMAL INSPECTION - Respiratory Exam Respiratory Exam: Decreased Breath Sounds - Cardiovascular Exam Cardiovascular Exam: +S1, +S2 - GI/Abdominal Exam GI & Abdominal Exam: Soft. absent: Tenderness Assessment and Plan - Assessment and Plan (Free Text) Plan: Assessment S/P Septic shock S/P VDRF (now extubated) due to colitis and pancreatitis with out blockage of biliary tract disease, now with pseudomembranous colitis history of DVT asthma Plan completed 10 days of zosyn continue PO Vancomycin day 10 for 10 days HIDA scan is negative will continue to monitor clinically
--- NOTE | 2018-08-08 12:49 | PN ---
DATE: 08/08/2018 SUBJECTIVE: This 58-year-old female remains hospitalized with marked deconditioning, inability to ambulate independently and awaiting right breast biopsy of an abnormal right breast ultrasound. The patient will need social service intervention regarding disposition since it is felt that she need subacute rehab for ambulation safety, but unfortunately is uninsured. I have asked the nursing staff to reach out to Dr. Obando from Breast Radiology regarding completion of a ultrasound-guided right breast of the abnormality seen on her right breast ultrasound because the patient remains too weak and deconditioned to perform a breast mammogram or MRI. At the time of this evaluation, temperature was 98.5, respirations 20, pulse 94 and blood pressure 98/56 with pulse ox 97% on room air. Her physical exam remains stable. She remains weak and deconditioned. Her labs show white count 7400, hemoglobin 9, hematocrit 27.8 and platelets 577,000 with a random blood sugar of 79 and the patient will continue on oral vancomycin and Silvadene to her affected skin to complete a 10-day course of vancomycin and then to have social service plan on disposition. All of the above was reviewed with the patient and nursing. Kena Lazo MD MTDD
--- NOTE | 2018-08-08 15:04 | CP.PCM.PN ---
<Vane Zapata - Last Filed: 08/08/18 15:01> Subjective - Date & Time of Evaluation Date of Evaluation: 08/08/18 Time of Evaluation: 15:01 - Subjective Subjective: Podiatry progress note: Dr. Ramírez 57F patient seen and evaluated in the bedside 4 days s/p left heel painful mass excision. Patient sitting in chair bedside and in NAD. She denies any pain to the area. She notes that the outside of her R ankle has been getting darker in color since she has been in the hospital. She denies any other pedal complaints at this time. Denies N/V/F/SOB/CP. Objective - Vital Signs/Intake and Output Vital Signs (last 24 hours): Temp Pulse Resp BP Pulse Ox 98.5 F 94 H 20 98/56 L 97 08/08/18 06:00 08/08/18 06:00 08/08/18 06:00 08/08/18 06:00 08/08/18 06:00 Intake and Output: 08/08/18 08/08/18 06:59 18:59 Intake Total 900 100 Balance 900 100 - Medications Medications: Current Medications Collagenase (Santyl) 0 gm TOP DAILY [facility] Silver Sulfadiazine (Silvadene 1% 25 Gm) 1 gm TP BID MELY Last Admin: 08/08/18 10:02 Dose: 1 gm Vancomycin HCl (Vancocin 25 Mg/Ml (Oral Use)) 250 mg PO QID [facility]; Protocol Last Admin: 08/08/18 10:01 Dose: 250 mg - Labs Labs: 08/05/18 07:00 08/05/18 07:00 PT 11.3 SECONDS (9.4-12.5) 07/20/18 16:01 INR 0.99 07/20/18 16:01 APTT 27.8 Seconds (25.1-36.5) 08/02/18 05:40 - Constitutional Appears: Well, Non-toxic, No Acute Distress - Head Exam Head Exam: ATRAUMATIC, NORMOCEPHALIC - Extremities Exam Additional comments: B/L LE focused exam: Vasc: DP/PT 2/4 b/l. Cap refill < 3 sec to all digits, Warm to cool from proximal to distal b/l. No edema noted b/l. MSK: No pain upon palpation to left foot heel wound Neuro: Gross and protective sensation intact. Derm: L heel wound appreciated at the site of excised mass with 100% granular base. No purulence, no malodor, no drainage, no bleeding, No erythema, no probe to bone. No clinical signs of active infection. R eschar noted to the lateral malleolus, no drainage, no purulence, no malodor, no clinical signs of infection - Neurological Exam Neurological Exam: Alert, Awake, Oriented x3 - Psychiatric Exam Psychiatric exam: Normal Affect, Normal Mood Assessment and Plan - Assessment and Plan (Free Text) Assessment: 57F patient seen and evaluated 4 days s/p L heel soft tissue mass excision Plan: Patient seen and evaluated at the bedside with Dr. Ramírez Charts, labs and vitals reviewed, afebrile Left foot 3 views x-ray: subcutaneous calcified mass, CT w/o contrast recommended. LE venous duplex (07/23): No evidence of DVT Local wound care: L foot dressed with optifoam Pathology report from soft tissue mass; pending. LE MRI taken; limited postoperative changes seen at the posterior and inferior heel soft tissues without evident of OM Patient instructed to ambulate in the surgical shoes all the times. Non-invasive vascular studies ordered; pending Patient instructed to wear the multipodus boots all the times while in bed Patient stable from podiatry standpoint <Cuca Ramírez - Last Filed: 08/15/18 14:35> Objective - Vital Signs/Intake and Output Vital Signs (last 24 hours): Temp Pulse Resp BP Pulse Ox 97.4 F L 103 H 18 132/70 97 08/15/18 07:30 08/15/18 07:30 08/15/18 07:30 08/15/18 07:30 08/15/18 07:30 Intake and Output: 08/15/18 08/15/18 06:59 18:59 Intake Total 60 Balance 60 - Medications Medications: Current Medications Acetaminophen (Tylenol 325mg Tab) 650 mg PO Q4H PRN PRN Reason: Pain, Mild (1-3) Last Admin: 08/14/18 11:11 Dose: 650 mg Collagenase (Santyl) 0 gm TOP DAILY [facility] Last Admin: 08/14/18 11:05 Dose: 1 appl Heparin Sodium (Porcine) (Heparin) 5,000 units SC Q12 [facility]; Protocol Last Admin: 08/15/18 09:12 Dose: 5,000 units Dextrose (Dextrose 5% In Water 1000 Ml) 1,000 mls @ 40 mls/hr IV .Q24H [facility]ELY Last Admin: 08/14/18 11:04 Dose: 40 mls/hr Lorazepam (Ativan) 1 mg IVP Q6H PRN; Protocol PRN Reason: Anxiety Last Admin: 08/15/18 13:10 Dose: 1 mg Nystatin (Nystop Topical Powder) 0 gm TOP BID MELY Last Admin: 08/15/18 09:16 Dose: 1 u Quetiapine Fumarate (Seroquel) 25 mg PO HS MELY; Protocol Risperidone (Risperdal Tab) 0.25 mg PO AMHS MELY; Protocol Last Admin: 08/15/18 09:12 Dose: 0.25 mg Silver Sulfadiazine (Silvadene 1% 25 Gm) 1 gm TP BID [facility] Last Admin: 08/15/18 09:16 Dose: 1 gm Thiamine HCl (Vitamin B1 Tab) 100 mg PO DAILY MELY Last Admin: 08/15/18 09:12 Dose: 100 mg - Labs Labs: 08/13/18 14:45 08/13/18 14:45 PT 11.3 SECONDS (9.4-12.5) 07/20/18 16:01 INR 0.99 07/20/18 16:01 APTT 27.8 Seconds (25.1-36.5) 08/02/18 05:40 Attending/Attestation - Attestation I have personally seen and examined this patient.: Yes I have fully participated in the care of the patient.: Yes I have reviewed all pertinent clinical information, including history, physical exam and plan: Yes
--- NOTE | 2018-08-08 17:15 | PN ---
DATE: 08/08/2018 SUBJECTIVE: The patient is a 58-year-old female who had been brought to the emergency room in a non responsive state. She appears to be deconditioned. Her viability has deteriorated significantly according to her PMD Dr. Lazo. She is alert and oriented. She is taking vancomycin for Clostridium difficile enteric infection. A breast biopsy is pending. Dewayne Love MD/ PhD
[2018-08-09] MEDS: Vancomycin 25 MG/ML PO SCH ×5 (00:31→22:33)
--- NOTE | 2018-08-09 09:08 | US ---
PROCEDURE: Lower extremity RADHA exam HISTORY: Peripheral vascular disease with pain and ulceration. PT's. Smoker. PHYSICIAN(S): Rafael Bhatia MD. FINDINGS: The resting RADHA's are normal: right, 1.11and left, 1.24. The brachial systolic pressures are symmetric. The high thigh pressures and waveforms are relatively normal. The calf PVR waveforms augment normally. No significant gradients are noted across the thighs. The ankle and metatarsal waveforms are relatively normal and symmetric. No significant pressure gradients are noted across the lower legs. There may be mild bilateral tibial disease. IMPRESSION: 1. Relatively normal RADHA and PVR examination at rest. 2. Possible mild bilateral tibial disease
[2018-08-09] MEDS: Collagenase 250 Units/gm Ointment(30 gm) TOP SCH (10:32)
[2018-08-09] MEDS: Silver Sulfadiazine 1% Cream (25 gm) TP SCH ×2 (10:35→18:01)
--- NOTE | 2018-08-09 15:20 | CP.PCM.PN ---
Subjective - Date & Time of Evaluation Date of Evaluation: 08/09/18 Time of Evaluation: 15:19 - Subjective Subjective: Podiatry progress note: Dr. Schroeder 57F patient seen and evaluated in the bedside 5 days s/p left heel painful mass excision performed at bedside. Patient just returned from biopsy and is resting comfortably and in NAD. She denies any acute events overnight. She denies N/V/F/SOB/CP. Objective - Vital Signs/Intake and Output Vital Signs (last 24 hours): Temp Pulse Resp BP Pulse Ox 99 F 92 H 18 103/65 96 08/09/18 14:54 08/09/18 14:54 08/09/18 14:54 08/09/18 14:54 08/09/18 14:54 Intake and Output: 08/09/18 08/09/18 06:59 18:59 Intake Total 180 Balance 180 - Medications Medications: Current Medications Collagenase (Santyl) 0 gm TOP DAILY MELY Last Admin: 08/09/18 10:32 Dose: 1 appl Silver Sulfadiazine (Silvadene 1% 25 Gm) 1 gm TP BID MELY Last Admin: 08/09/18 10:35 Dose: 1 gm Vancomycin HCl (Vancocin 25 Mg/Ml (Oral Use)) 250 mg PO QID [facility]; Protocol Last Admin: 08/09/18 10:40 Dose: 250 mg - Labs Labs: 08/05/18 07:00 08/05/18 07:00 PT 11.3 SECONDS (9.4-12.5) 07/20/18 16:01 INR 0.99 07/20/18 16:01 APTT 27.8 Seconds (25.1-36.5) 08/02/18 05:40 - Constitutional Appears: Well, Non-toxic, No Acute Distress - Head Exam Head Exam: ATRAUMATIC, NORMOCEPHALIC - Extremities Exam Additional comments: B/L LE focused exam: Vasc: DP/PT 2/4 b/l. Cap refill < 3 sec to all digits, Warm to cool from proximal to distal b/l. No edema noted b/l. MSK: No pain upon palpation to left foot medial heel wound Neuro: Gross and protective sensation intact. Derm: L heel wound appreciated at the site of excised mass with 100% granular base. No purulence, no malodor, no drainage, no bleeding, No erythema, no probe to bone. No clinical signs of active infection. 100% granular base. Additional ulceration appreciated to the lateral aspect of the R foot with necrotic base, stable no purulence, no drainage, no clinical signs of infection. - Neurological Exam Neurological Exam: Alert, Awake, Oriented x3 - Psychiatric Exam Psychiatric exam: Normal Affect, Normal Mood Assessment and Plan - Assessment and Plan (Free Text) Assessment: 57F patient seen and evaluated 5 days s/p L heel soft tissue mass excision Plan: Patient seen and evaluated at bedside Pathology report L heel mass; infarcted verruca LE RADHA exam; relatively normal RADHA and PVR examination at rest, possible mild b/l tibial disease LE MRI taken; limited postoperative changes seen at the posterior and inferior heel soft tissues without evident of OM Left foot 3 views x-ray: subcutaneous calcified mass, CT w/o contrast recommended. LE venous duplex (07/23): No evidence of DVT Local wound care: L foot dressed with betadine and optifoam, right wound santyl, Optifoam Patient stable from podiatry standpoint, pending d/c patient to follow up in wound care center
--- NOTE | 2018-08-09 15:48 | CP.PCM.PN ---
Subjective - Date & Time of Evaluation Date of Evaluation: 08/09/18 Time of Evaluation: 08:35 - Subjective Subjective: No fevers, not in distress. Objective - Vital Signs/Intake and Output Vital Signs (last 24 hours): Temp Pulse Resp BP Pulse Ox 98.5 F 94 H 20 98/56 L 97 08/08/18 06:00 08/08/18 06:00 08/08/18 06:00 08/08/18 06:00 08/08/18 06:00 Intake and Output: 08/08/18 08/08/18 06:59 18:59 Intake Total 900 100 Balance 900 100 - Medications Medications: Current Medications Silver Sulfadiazine (Silvadene 1% 25 Gm) 1 gm TP BID MELY Last Admin: 08/08/18 10:02 Dose: 1 gm Vancomycin HCl (Vancocin 25 Mg/Ml (Oral Use)) 250 mg PO QID [facility]; Protocol Last Admin: 08/08/18 10:01 Dose: 250 mg - Labs Labs: 08/05/18 07:00 08/05/18 07:00 PT 11.3 SECONDS (9.4-12.5) 07/20/18 16:01 INR 0.99 07/20/18 16:01 APTT 27.8 Seconds (25.1-36.5) 08/02/18 05:40 - Constitutional Appears: Chronically Ill - Head Exam Head Exam: NORMAL INSPECTION - Respiratory Exam Respiratory Exam: Decreased Breath Sounds - Cardiovascular Exam Cardiovascular Exam: +S1, +S2 - GI/Abdominal Exam GI & Abdominal Exam: Soft. absent: Tenderness Assessment and Plan - Assessment and Plan (Free Text) Plan: Assessment S/P Septic shock S/P VDRF (now extubated) due to colitis and pancreatitis withou t blockage of biliary tract disease, now with pseudomembranous colitis history of DVT asthma Plan completed 10 days of zosyn complete PO Vancomycin today (10 day course) HIDA scan is negative will continue to monitor clinically
--- NOTE | 2018-08-09 17:45 | US ---
Date of service: 08/09/2018 Patient is a 50-year-old female with history of multiple masses at the right breast presenting for ultrasound-guided core biopsy. TECHNIQUE/FINDINGS: Following full discussion of risks and benefits of the procedure with the patient including alternatives, patient freely gave written consent. Time out was called. Preliminary ultrasonography demonstrates multiple lesions at the right upper inner quadrant 7-8 cm from the nipple which shadow densely. Area of the procedure was marked. Following sonographic identification of the lesion in question, maximum sterile barrier protection was provided to the skin overlying the lesion. 2 cc 1 percent lidocaine was utilized for skin anesthesia with 4 cc of lidocaine with epinephrine was utilized for deep tissue anesthesia. Under ultrasound control, a 14 gauge coaxial biopsy needle system was introduced into lesion at the 10 o'clock radius 7-8 cm from the nipple with 3 passes were performed acquiring 3 solid whitish specimen. Specimen were placed in buffered 10% formalin solution and sent to pathology. A [place] "eye " biopsy clip was subsequently deployed under ultrasound control. Postprocedure ultrasound demonstrates biopsy clip at the anterior portion of the lesion in question. Patient was unable to perform postprocedure mammography having recently been discharged from the intensive care unit to [facility]. Patient tolerated procedure well with very minimal blood loss. IMPRESSION: Central ultrasound-guided core biopsy right breast mass. An addendum will be issued when final pathology results are available
--- NOTE | 2018-08-09 21:07 | PN ---
DATE: 08/09/2018 SUBJECTIVE: This 57-year-old female is on schedule for a right breast ultrasound-guided biopsy and remains weak and deconditioned. I have spoken in detail with social service regarding her disposition given her deconditioning and inability to ambulate. sail lay out worker, Remy Beltran, comments that he did reach her brother, Rubio, at [phone] and has scheduled a meeting for tomorrow to discuss her plan of care. The patient remains uninsured and disposition remains an issue. PHYSICAL EXAMINATION: VITAL SIGNS: Temperature 99, respirations 18, pulse 92, blood pressure 103/65. Pulse ox 96% on room air. Physical exam remains unchanged. IMPRESSION: A 58-year-old female with abnormal right breast ultrasound, too weak and deconditioned for mammogram or MRI with comorbidities of peripheral neuropathy, deconditioning, sacral skin irritation, stool Clostridium difficile positive antigen and recent pancreatitis, septic shock, respiratory failure and anemia of acute illness. The patient will continue on skin care with James and Nick. She will complete a 10-day course of oral vancomycin 250 mg p.o. four times a day as recommended by Infectious Disease. She is being encouraged to cooperate with physical therapy and disposition will be decided by manager social responsibility and her family. Based on the results of breast ultrasound guided biopsy, additional diagnostic workup and testing will be entertained. All of the above was reviewed with the patient, nursing and social service. All questions were answered. Kena Lazo MD MTDD
[2018-08-10] MEDS: Silver Sulfadiazine 1% Cream (25 gm) TP SCH ×2 (10:27→17:50)
[2018-08-10] MEDS: Collagenase 250 Units/gm Ointment(30 gm) TOP SCH (10:27)
--- NOTE | 2018-08-10 11:14 | CP.PCM.PN ---
Subjective - Date & Time of Evaluation Date of Evaluation: 08/10/18 Time of Evaluation: 11:10 - Subjective Subjective: Podiatry progress note: Dr. Ramírez 57F patient seen and evaluated in the bedside 6 days s/p left heel painful mass excision performed at bedside. Patient aware for plan of going to the OR tomorrow for wound debridement and additional biopsy of L heel wound. No acute events overnight. Patient denies N/V/F/SOB/CP. Objective - Vital Signs/Intake and Output Vital Signs (last 24 hours): Temp Pulse Resp BP Pulse Ox 97.7 F 100 H 18 125/75 98 08/10/18 06:00 08/10/18 06:00 08/10/18 06:00 08/10/18 06:00 08/10/18 06:00 Intake and Output: 08/10/18 08/10/18 06:59 18:59 Intake Total 120 Balance 120 - Medications Medications: Current Medications Collagenase (Santyl) 0 gm TOP DAILY [facility] Last Admin: 08/10/18 10:27 Dose: Not Given Silver Sulfadiazine (Silvadene 1% 25 Gm) 1 gm TP BID [facility] Last Admin: 08/10/18 10:27 Dose: Not Given - Labs Labs: 08/05/18 07:00 08/05/18 07:00 PT 11.3 SECONDS (9.4-12.5) 07/20/18 16:01 INR 0.99 07/20/18 16:01 APTT 27.8 Seconds (25.1-36.5) 08/02/18 05:40 - Constitutional Appears: Non-toxic, No Acute Distress - Head Exam Head Exam: ATRAUMATIC, NORMOCEPHALIC - Extremities Exam Additional comments: B/L LE focused exam: Vasc: DP/PT 2/4 b/l. Cap refill < 3 sec to all digits, Warm to cool from proximal to distal b/l. No edema noted b/l. MSK: No pain upon palpation to left foot medial heel wound Neuro: Gross and protective sensation intact. Derm: L heel wound appreciated at the site of excised mass with 100% hyper- granular base. No purulence, no malodor, no drainage, no bleeding, No erythema, no probe to bone. No clinical signs of active infection. Additional ulceration appreciated to the lateral aspect of the R foot with necrotic base, stable no purulence, no drainage, no clinical signs of infection. - Neurological Exam Neurological Exam: Alert, Awake, Oriented x3 - Psychiatric Exam Psychiatric exam: Normal Affect, Normal Mood Assessment and Plan - Assessment and Plan (Free Text) Assessment: 57F patient seen and evaluated 6 days s/p L heel soft tissue mass excision, plan for OR tomorrow Plan: Patient seen and evaluated at bedside Pathology report L heel mass; infarcted verruca LE RADHA exam; relatively normal RADHA and PVR examination at rest, possible mild b/l tibial disease LE MRI taken; limited postoperative changes seen at the posterior and inferior heel soft tissues without evident of OM Left foot 3 views x-ray: subcutaneous calcified mass, CT w/o contrast recommended. LE venous duplex (07/23): No evidence of DVT Local wound care: L foot dressed with betadine and optifoam, right wound santyl, Optifoam NPO past midnight Please provide cardiac risk assessment Patient to OR tomorrow morning at 7:30 am for wound debridement and further biopsy with Dr. Ramírez
--- NOTE | 2018-08-10 15:10 | PN ---
DATE: 08/10/2018 SUBJECTIVE: This 58-year-old female remains hospitalized, awaiting social service intervention regarding disposition secondary to her uninsured status. She did complete a right breast ultrasound-guided biopsy of her breasts yesterday results of which are pending. According to social services analyst, Remy Beltran, he is scheduled to meet with her brother, Rubio, today to discuss disposition planning. PHYSICAL EXAMINATION: VITAL SIGNS: Temperature is 97.7, respirations 18, pulse 100 and blood pressure 125/75 with a pulse ox of 98%. Exam remains unchanged. IMPRESSION: A 58-year-old female with marked deconditioning and comorbidities of abnormal right breast ultrasound in a deconditioned state, too weak to perform mammography or MRI and also with chronic peripheral neuropathy and admission for septic shock, respiratory failure, pancreatitis and stool Clostridium difficile toxin antigen. PLAN: The patient has completed a 10-day course of oral vancomycin. She is now being treated for bedsores with Silvadene and Santyl and wound care management. After Social Service discussion, disposition will be decided and further workup will be entertained based on the results of her right breast biopsy. All of the above was discussed with the patient, nursing and social service. All questions were answered. Kena Lazo MD
--- NOTE | 2018-08-10 15:29 | PN ---
DATE: 08/10/2018 SUBJECTIVE: The patient is a 57-year-old female, who had been brought to the emergency room in unresponsive state. She appears to be significantly severely deconditioned. I have reviewed her situation with Dr. Lazo. She is on schedule for a right breast ultrasound-guided biopsy. Social work has been involved and trying to reach her brother. The patient appears to be alert, withdrawn, depressed, poor historian, somewhat confused, repetitive. It is unclear if the patient is in a state of delirium. I will start the patient on low dose major tranquilizer and watch for changes and cognitive and affective status. If the patient is depressed, then it can be assumed that she is severely so and if she does not respond to psychopharmalogic intervention, would consider the possibility of ECT at some future time. Presently, she is not on any psychotropic medications. VITAL SIGNS: Blood pressure 125/74, temperature 97.7, pulse 100. Dewayne Love MD/ PhD
--- NOTE | 2018-08-10 15:55 | CP.PCM.PN ---
Subjective - Date & Time of Evaluation Date of Evaluation: 08/10/18 Time of Evaluation: 09:10 - Subjective Subjective: Afebrile, comfortable. Objective - Vital Signs/Intake and Output Vital Signs (last 24 hours): Temp Pulse Resp BP Pulse Ox 99 F 92 H 18 103/65 96 08/09/18 14:54 08/09/18 14:54 08/09/18 14:54 08/09/18 14:54 08/09/18 14:54 Intake and Output: 08/09/18 08/09/18 06:59 18:59 Intake Total 180 Balance 180 - Medications Medications: Current Medications Collagenase (Santyl) 0 gm TOP DAILY [facility]ELY Last Admin: 08/09/18 10:32 Dose: 1 appl Silver Sulfadiazine (Silvadene 1% 25 Gm) 1 gm TP BID MELY Last Admin: 08/09/18 10:35 Dose: 1 gm Vancomycin HCl (Vancocin 25 Mg/Ml (Oral Use)) 250 mg PO QID [facility]; Protocol Last Admin: 08/09/18 10:40 Dose: 250 mg - Labs Labs: 08/05/18 07:00 08/05/18 07:00 PT 11.3 SECONDS (9.4-12.5) 07/20/18 16:01 INR 0.99 07/20/18 16:01 APTT 27.8 Seconds (25.1-36.5) 08/02/18 05:40 - Constitutional Appears: Chronically Ill - Head Exam Head Exam: NORMAL INSPECTION - Respiratory Exam Respiratory Exam: Decreased Breath Sounds - Cardiovascular Exam Cardiovascular Exam: +S1, +S2 - GI/Abdominal Exam GI & Abdominal Exam: Soft. absent: Tenderness Assessment and Plan - Assessment and Plan (Free Text) Plan: Assessment S/P Septic shock S/P VDRF (now extubated) due to colitis and pancreatitis without blockage of biliary tract disease, now with pseudomembranous colitis history of DVT asthma Plan completed 10 days of zosyn completed PO Vancomycin today (10 day course) HIDA scan is negative will continue to monitor clinically off antibiotics
[2018-08-10] MEDS: Nystatin 100,000 Units/gm Topical Pow(15 gm) TOP SCH (17:50)
[2018-08-10] MEDS ORDERED: Nystatin 100,000 Units/gm Topical Pow(15 gm) TOP SCH (18:00)
--- NOTE | 2018-08-10 21:42 | MRI ---
Date of service: 08/10/2018 PROCEDURE: MRI of the right ankle region without contrast HISTORY: R ulceration to ankle, going to OR tomorrow COMPARISON: None available. TECHNIQUE: Axial coronal and sagittal MRI images of the right ankle were obtained without contrast administration. FINDINGS: Limited examination due to extensive motion artifacts. There is 1.6 x 2.7 centimeter cystic structure or fluid collection posterior to the talotibial joint may represent ganglion cyst versus joint effusion. There is a small amount of joint effusion also noted in the anterior aspect of the joint. There is a small amount of fluid noted in the tarsal sinus. No evidence of bone marrow edema or destructive bony lesion. The Achillis tendon is intact. The visualized flexor and extensor tendons are also intact. There is no definite evidence of abscess formation. IMPRESSION: Limited examination due to extensive motion artifacts. No evidence of bone marrow edema or destructive bony lesion. No evidence of discrete fluid collection or abscess formation noted. Fluid collection versus cyst posterior to the talotibial joint may represent ganglion cyst or joint effusion. Preliminary report was submitted by [facility] Radiology contains concordant findings.
[2018-08-11] MEDS ORDERED: Dextrose 50% SYRINGE Inj (50 ml) IVP ONE ×2 (00:20→07:05)
[2018-08-11] MEDS ORDERED: Lidocaine 2% Inj (20ml) ONE (07:19)
[2018-08-11] MEDS ORDERED: Propofol 10 mg/ml Inj (20 ML) ONE (08:16)
--- NOTE | 2018-08-11 08:47 | PCM.SURG1 ---
Surgeon's Initial Post Op Note - Surgeon's Notes Surgeon: Dr. Ramírez, DPM Customer Operations Manager: Dr. 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 I: None. M: None Post-Operative Diagnosis: Same Operation Performed: L heel wound debridement and bipopsy Specimen/Specimens Removed: L heel biopsy Estimated Blood Loss: EBL {In ML}: 1 Blood Products Given: N/A Drains Used: No Drains Post-Op Condition: Good Date of Surgery/Procedure: 08/11/18 Time of Surgery/Procedure: 08:46
[2018-08-11] MEDS ORDERED: Sodium Chloride 0.9% 1,000 ML IV SCH (09:00)
[2018-08-11] MEDS ORDERED: Oxycodone/Acetaminophen 5/325 mg Tab PO PRN ×2 (09:16)
[2018-08-11] MEDS ORDERED: Oxycodone/Acetaminophen 5/325 mg Tab ONE (09:26)
[2018-08-11] MEDS: Silver Sulfadiazine 1% Cream (25 gm) TP SCH ×2 (10:43→17:49)
[2018-08-11] MEDS: Nystatin 100,000 Units/gm Topical Pow(15 gm) TOP SCH ×2 (10:43→17:49)
[2018-08-11] MEDS: Collagenase 250 Units/gm Ointment(30 gm) TOP SCH (10:43)
--- NOTE | 2018-08-11 14:16 | CT ---
Date of service: 08/11/2018 PROCEDURE: CT HEAD WITHOUT CONTRAST. HISTORY: ams COMPARISON: None available. TECHNIQUE: Axial computed tomography images were obtained through the head/brain without intravenous contrast. Radiation dose: Total exam DLP = 909.73 mGy-cm. This CT exam was performed using one or more of the following dose reduction techniques: Automated exposure control, adjustment of the mA and/or kV according to patient size, and/or use of iterative reconstruction technique. FINDINGS: HEMORRHAGE: No intracranial hemorrhage. BRAIN: No mass effect or edema. No atrophy or chronic microvascular ischemic changes. VENTRICLES: Unremarkable. No hydrocephalus. CALVARIUM: Unremarkable. PARANASAL SINUSES: Unremarkable as visualized. No significant inflammatory changes. MASTOID AIR CELLS: Unremarkable as visualized. No inflammatory changes. OTHER FINDINGS: None. IMPRESSION: Normal CT of the Head.
[2018-08-11 16:11] LABS: BASO # 0.04 K/mm3 (0.0-2.0); BASO % 0.5 % (0.0-3.0); EOS # 0.3 (0.0-0.7); EOS % 3.2 % (1.5-5.0); GRAN # 3.97 (1.4-6.5); GRAN % 51.2 % (50.0-68.0); HEMOGLOBIN 10.2 g/dL (12.0-16.0); LYMPH # 2.2 (1.2-3.4); LYMPH % 28.2 % (22.0-35.0); MEAN CELL VOLUME 97.8 fl (80.0-105.0); MEAN CORPUSCULAR HEMOGLOBIN 32.1 pg (25.0-35.0); MEAN CORPUSCULAR HGB CONC 32.8 g/dl (31.0-37.0); MEAN PLATELET VOLUME 9.1 fl (7.0-11.0); MONO # 1.3 (0.1-0.6); MONO % 16.9 % (1.0-6.0); RBC 3.18 10^6/uL (3.5-6.1); RED CELL DISTRIBUTION WIDTH 15.2 % (11.5-14.5); WHITE BLOOD COUNT 7.8 10^3/uL (4.5-11.0)
[2018-08-11 16:23] LABS: ALB/GLOB RATIO 1.1 (1.1-1.8); ALBUMIN 3.8 g/dL (3.0-4.8); ALT/SGPT 27 U/L (7-56); AST/SGOT 26 U/L (14-36); BLOOD UREA NITROGEN 30 mg/dL (7-21); CALCIUM 9.8 mg/dL (8.4-10.5); GFR NON-AFRICAN AMERICAN > 60
[2018-08-11 20:15] LABS: PH,URINE 5.5 (4.7-8.0); URINE BILIRUBIN NEGATIVE (NEGATIVE); URINE BLOOD NEGATIVE (NEGATIVE); URINE GLUCOSE (UA) 100 mg/dL (NEGATIVE); URINE LEUKOCYTE ESTERASE NEGATIVE Leu/uL (NEGATIVE); URINE PROTEIN NEGATIVE mg/dL (<30 mg/dL); URINE UROBILINOGEN 0.2 E.U./dL (<1 E.U./dL)
[2018-08-11 20:16] LABS: URINE APPEARANCE CLEAR (CLEAR)
--- NOTE | 2018-08-11 23:17 | PN ---
DATE: 08/11/2018 SUBJECTIVE: The patient remains problematic. She is withdrawn, poorly focused. For reasons unclear to me, the initiation of Risperdal which I thought had been ordered yesterday was note. Thus the patient has been started on this medication (0.25 mg in the morning and at bedtime) today. The patient had a lower extremity MRI yesterday which showed no evidence of bone marrow edema or destructive bony lesion and no evidence of discrete fluid collection or abscess formation. A CT scan of the head performed earlier today does not reveal any evidence of a hemorrhage but rather showed a normal CT scan of the head. We will continue to monitor with you. Dewayne Love MD/ PhD
[2018-08-12] MEDS: Nystatin 100,000 Units/gm Topical Pow(15 gm) TOP SCH ×2 (10:35→19:01)
[2018-08-12] MEDS: Collagenase 250 Units/gm Ointment(30 gm) TOP SCH (10:36)
[2018-08-12] MEDS: Silver Sulfadiazine 1% Cream (25 gm) TP SCH ×2 (10:36→19:01)
--- NOTE | 2018-08-12 11:14 | CP.PCM.PN ---
<Vane Zapata - Last Filed: 08/12/18 11:41> Subjective - Date & Time of Evaluation Date of Evaluation: 08/12/18 Time of Evaluation: 11:11 - Subjective Subjective: Podiatry progress note: Dr. Schroeder 57F patient seen and evaluated POD#1 L heel biopsy with debridement. Patient resting comfortably and in NAD. Patient unaware of her current location and unable to answer questions coherently at this time. No acute events overnight. Denies N/V/F/SOB/CP. Objective - Vital Signs/Intake and Output Vital Signs (last 24 hours): Temp Pulse Resp BP Pulse Ox 98.2 F 88 18 116/57 L 94 L 08/12/18 06:00 08/12/18 06:00 08/12/18 06:00 08/12/18 06:00 08/12/18 06:00 - Medications Medications: Current Medications Acetaminophen (Tylenol 325mg Tab) 650 mg PO Q4H PRN PRN Reason: Pain, Mild (1-3) Collagenase (Santyl) 0 gm TOP DAILY [facility] Last Admin: 08/12/18 10:36 Dose: Not Given Dextrose (Dextrose 5% In Water 1000 Ml) 1,000 mls @ 80 mls/hr IV .[id number] [facility] Last Admin: 08/12/18 10:32 Dose: 80 mls/hr Nystatin (Nystop Topical Powder) 0 gm TOP BID [facility] Last Admin: 08/12/18 10:35 Dose: 1 u Oxycodone/Acetaminophen (Percocet 5/325 Mg Tab) 1 tab PO Q4H PRN PRN Reason: Pain, moderate (4-7) Stop: 08/14/18 09:17 Last Admin: 08/11/18 09:20 Dose: 1 tab Oxycodone/Acetaminophen (Percocet 5/325 Mg Tab) 2 tab PO Q4H PRN PRN Reason: Pain, severe (8-10) Stop: 08/14/18 09:17 Risperidone (Risperdal Tab) 0.25 mg PO AMHS [facility]; Protocol Last Admin: 08/12/18 10:32 Dose: 0.25 mg Silver Sulfadiazine (Silvadene 1% 25 Gm) 1 gm TP BID [facility] Last Admin: 08/12/18 10:36 Dose: 1 gm - Labs Labs: 08/11/18 15:50 08/11/18 15:50 PT 11.3 SECONDS (9.4-12.5) 07/20/18 16:01 INR 0.99 07/20/18 16:01 APTT 27.8 Seconds (25.1-36.5) 08/02/18 05:40 - Constitutional Appears: Non-toxic, No Acute Distress - Extremities Exam Additional comments: B/L LE focused exam: Vasc: DP/PT 2/4 b/l. Cap refill < 3 sec to all digits, Warm to cool from proximal to distal b/l. No edema noted b/l. MSK: No pain upon palpation to left foot medial heel wound Neuro: Gross and protective sensation intact. Derm: Site of biopsy 100% granular base, no purulence, no malodor, no drainage, no bleeding, no erythema, no probe to bone. No clinical signs of active infection. Additional ulceration appreciated to the lateral aspect of the R foot with necrotic base, stable no purulence, no drainage, no clinical signs of infection. - Neurological Exam Neurological Exam: Alert, Awake. absent: Oriented x3 - Skin Skin Exam: Warm Assessment and Plan - Assessment and Plan (Free Text) Assessment: 57F patient seen and evaluated POD#1 L heel biopsy with debridement. Plan: Patient seen and evaluated at bedside Pathology report L heel mass; infarcted verruca Intra-op pathology report pending LE RADHA exam; relatively normal RADHA and PVR examination at rest, possible mild b/l tibial disease LE MRI taken; limited postoperative changes seen at the posterior and inferior heel soft tissues without evident of OM Left foot 3 views x-ray: subcutaneous calcified mass, CT w/o contrast recommended. LE venous duplex (07/23): No evidence of DVT Local wound care: L foot dressed with xeroform, DSD. right wound santyl, Optifoam Will continue to follow <Zac Schroeder - Last Filed: 08/12/18 14:29> Objective - Vital Signs/Intake and Output Vital Signs (last 24 hours): Temp Pulse Resp BP Pulse Ox 98.2 F 88 18 116/57 L 94 L 08/12/18 06:00 08/12/18 06:00 08/12/18 06:00 08/12/18 06:00 08/12/18 06:00 - Medications Medications: Current Medications Acetaminophen (Tylenol 325mg Tab) 650 mg PO Q4H PRN PRN Reason: Pain, Mild (1-3) Collagenase (Santyl) 0 gm TOP DAILY [facility] Last Admin: 08/12/18 10:36 Dose: Not Given Heparin Sodium (Porcine) (Heparin) 5,000 units SC Q12 [facility]; Protocol Last Admin: 08/12/18 12:34 Dose: 5,000 units Dextrose (Dextrose 5% In Water 1000 Ml) 1,000 mls @ 40 mls/hr IV .Q24H [facility] Last Admin: 08/12/18 12:35 Dose: 40 mls/hr Nystatin (Nystop Topical Powder) 0 gm TOP BID [facility] Last Admin: 08/12/18 10:35 Dose: 1 u Potassium Chloride (K-Dur 20 Meq Er Tab) 40 meq PO BID [facility] Stop: 08/13/18 12:00 Last Admin: 08/12/18 12:35 Dose: 40 meq Risperidone (Risperdal Tab) 0.25 mg PO AMHS [facility]; Protocol Last Admin: 08/12/18 10:32 Dose: 0.25 mg Silver Sulfadiazine (Silvadene 1% 25 Gm) 1 gm TP BID [facility] Last Admin: 08/12/18 10:36 Dose: 1 gm Thiamine HCl (Vitamin B1 Tab) 100 mg PO DAILY [facility] Last Admin: 08/12/18 12:35 Dose: 100 mg - Labs Labs: 08/11/18 15:50 08/11/18 15:50 PT 11.3 SECONDS (9.4-12.5) 07/20/18 16:01 INR 0.99 07/20/18 16:01 APTT 27.8 Seconds (25.1-36.5) 08/02/18 05:40 Attending/Attestation - Attestation I have personally seen and examined this patient.: Yes I have fully participated in the care of the patient.: Yes I have reviewed all pertinent clinical information, including history, physical exam and plan: Yes
[2018-08-12] MEDS: Potassium Chloride 20 mEq ER Tab PO SCH ×2 (12:35→19:01)
--- NOTE | 2018-08-12 14:18 | PN ---
DATE: 08/12/2018 The patient remains problematic in her presentation and behavior. I have reviewed her situation with nursing. The patient does show some confusion with regard to time or place. She has at times tried to climb out of bed. Psychotropically, she is presently being maintained on Risperdal 0.25 mg a.m. and at bedtime (which is increased from once a day yesterday). Blood glucose today is 89. Blood pressure 116/57, temperature 98.2, respiratory rate 18. We will continue to monitor with you. Dewayne Love MD/ PhD
--- NOTE | 2018-08-12 15:27 | PN ---
DATE: 08/11/2018 SUBJECTIVE: This 58-year-old female was examined at bedside and this case was reviewed in detail with nurse, Fanny Levy and elementary school social worker, Remy Romero. The patient remains weak and deconditioned. She is status post an excision of a left heel wart-like lesion earlier this morning under the direction of Dr. Cuca Ramírez from Podiatry. The patient was confused postoperatively and is awaiting reevaluation by Dr. Lyle Hamilton from Neurology and Dr. Love from Psychiatry. PHYSICAL EXAM: VITAL SIGNS: Her temperature was 98.8, respirations 16, pulse 103 and blood pressure 99/63 with a pulse ox of 100% on 3 liters nasal O2. LABORATORY DATA: Labs are currently pending and the plan is to obtain comprehensive metabolic panel, CBC and CT of the head with intervention based on above results. PLAN: The patient will continue on D5W at 80 mL/hour, local skin cream including Silvadene, Santyl, and topical nystatin. She has an order for Percocet for severe postoperative pain and is encouraged to cooperate with physical therapy and will be closely monitored by the nursing staff. Disposition will be decided by family and social service. Kena Lazo MD
--- NOTE | 2018-08-12 15:28 | PN ---
DATE: 08/12/2018 SUBJECTIVE: This 58-year-old female was examined at her bedside and her case was reviewed with her nurse, Maday Sales and Dr. Zac Schroeder, pit shoveler at bedside doing a left heel wound care. The patient is status post an excision of a wart-like lesion on her left heel yesterday. Today she is much calmer and was seen by Dr. Love who instituted Risperdal 0.25 mg p.o. b.i.d. I did review her CT of the head performed on the afternoon of 08/11/2018 which shows no acute changes. No hemorrhage, no infarct. PHYSICAL EXAMINATION: GENERAL: At present, the patient is lying in bed. VITAL SIGNS: Her temperature is 98.2, respirations 18, pulse 88 and blood pressure 116/57 with a pulse ox of 94% room air. Physical exam remains unchanged. LABORATORY DATA:: White count 7800, hemoglobin 10.2, hematocrit 31.1, platelets 413,000. Sodium 141, K 3.4, chloride 103, bicarb 30, BUN 30, creatinine 0.9, random blood sugar 88. Bilirubin 0.3, AST 26, ALT 27, alk phos 84, random blood sugar 85. IMPRESSION: Is a 58-year-old female with marked deconditioning status post excision of a wart-like lesion on her left heel with comorbidities of peripheral neuropathy, admitted for septic shock, marijuana abuse and misuse, anemia of acute illness, respiratory failure, now resolved with acute metabolic encephalopathy and anxiety, depression, psychosis, skin lesions and deconditioning. PLAN: The plan at present is to decrease her D5W to 40 mL/hour and encourage the patient to eat. She is receiving topical nystatin and skin care with Santyl and Silvadene. She will have pain management with Tylenol. I will discontinue Percocet. She will be scheduled for out of bed to chair and ambulation which was cleared by Dr. Schroeder from Podiatry. She will be further evaluated by Dr. Love from Psychiatry and Dr. Lyle Hamilton from Neurology and disposition will be decided by social and political studies professor and family since the patient has no medical insurance at present. All of the above was discussed in detail with the patient, nursing, co-consultants and Social Service. All questions were answered. Kena Lazo MD [facility] # [id number]
--- NOTE | 2018-08-12 15:38 | CP.PCM.PN ---
Subjective - Date & Time of Evaluation Date of Evaluation: 08/12/18 Time of Evaluation: 09:40 - Subjective Subjective: Had debridement of left foot yesterday, no fevers. Objective - Vital Signs/Intake and Output Vital Signs (last 24 hours): Temp Pulse Resp BP Pulse Ox 98.7 F 117 H 18 115/76 98 08/10/18 14:00 08/10/18 14:00 08/10/18 14:00 08/10/18 14:00 08/10/18 14:00 Intake and Output: 08/10/18 08/10/18 06:59 18:59 Intake Total 120 Balance 120 - Medications Medications: Current Medications Collagenase (Santyl) 0 gm TOP DAILY [facility] Last Admin: 08/10/18 10:27 Dose: Not Given Nystatin (Nystop Topical Powder) 0 gm TOP BID [facility] Silver Sulfadiazine (Silvadene 1% 25 Gm) 1 gm TP BID [facility] Last Admin: 08/10/18 10:27 Dose: Not Given - Labs Labs: 08/05/18 07:00 08/05/18 07:00 PT 11.3 SECONDS (9.4-12.5) 07/20/18 16:01 INR 0.99 07/20/18 16:01 APTT 27.8 Seconds (25.1-36.5) 08/02/18 05:40 - Constitutional Appears: Chronically Ill - Head Exam Head Exam: NORMAL INSPECTION - Respiratory Exam Respiratory Exam: Decreased Breath Sounds - Cardiovascular Exam Cardiovascular Exam: +S1, +S2 - GI/Abdominal Exam GI & Abdominal Exam: Soft. absent: Tenderness - Extremities Exam Additional comments: left foot with dressings in place Assessment and Plan - Assessment and Plan (Free Text) Plan: Assessment S/P Septic shock S/P VDRF (now extubated) due to colitis and pancreatitis without blockage of biliary tract disease, now with pseudomembranous colitis S/P debridement of left foot ulcer history of DVT asthma Plan completed 10 days of zosyn completed PO Vancomycin today (10 day course) HIDA scan is negative will continue to monitor clinically off antibiotics
--- NOTE | 2018-08-12 15:54 | CON ---
DATE: 08/12/2018 NEUROLOGY CONSULT CHIEF COMPLAINT: Transient altered mental status. 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 The patient is delirious, she is hallucinating, confabulating at times, but does follow simple commands, moves all extremities, very deconditioned. She has frequent episodes of hypoglycemia throughout the admission, which could affect her cognition span. MRI of the brain has been ordered to see any structural abnormalities change. There is active delirium going on. She is on risperidone as per Psychiatry and on thiamine currently 100 mg p.o. daily. PAST MEDICAL HISTORY: As above. SOCIAL HISTORY: No illicit drug use, smoking or ETOH abuse. ALLERGIES: NO KNOWN DRUG ALLERGIES. MEDICATIONS: Reviewed by nurse's reconciliation sheet. FAMILY HISTORY: Noncontributory. REVIEW OF SYSTEMS: A 14-point review of systems is negative except as per HPI. CURRENT LABORATORY DATA: Today's blood sugar is 89. PHYSICAL EXAMINATION: GENERAL: The patient is seen up in bed. No acute distress. VITAL SIGNS: Temperature 98.2, pulse rate of 88, blood pressure of 167/57, respiratory rate 18, oxygen saturation 95% on room air. HEENT: Atraumatic and normocephalic. PERRLA. Extraocular muscles are intact. NECK: Supple. No JVD. No adenopathy noted. LUNGS: Clear to auscultation. No adventitious sounds. HEART: S1 and S2. Normal rate and rhythm. No murmurs, rubs or gallops. ABDOMEN: Soft, nontender and nondistended. Bowel sounds are present. EXTREMITIES: No clubbing. No cyanosis. Peripheral pulses 2+ felt bilaterally. NEUROLOGIC: The patient is alert, oriented to person and place, but not much to month or year. Recall time is 0/3. Poor attention span. Slow thought process. Cranial nerves II through XII are intact. Speech is hypophonic. Motor exam: Has atrophy of both the intrinsic muscles on the hands and feet and possible in distal muscles. Sensory: Decreased light touch and pinprick up to the calves bilaterally. Moves all extremities equally. Toes downgoing bilaterally. DTRs are 2+ throughout and 1 at both knees and ankles. Coordination: [id number] is intact. No dysmetria noted. Gait is deferred for now. IMPRESSION AND PLAN: This is acute active delirium, superimposed underlying organic brain syndrome with occasional episodes of metabolic derangements such as hypoglycemia. At this time, we recommend: 1. Keep blood sugars in 140-180. 2. Keep blood pressures between 130s to 140 systolic and diastolic 70s to 80s. 3. Thiamine at least 100 mg p.o. b.i.d. for neuronal activity. 4. Continue risperidone for delirious and behavioral disturbance affect and MRI of the brain to assess for any structural abnormalities causing change. PT/OT. We will follow up as an outpatient as well for underlying peripheral neuropathy workup. Lyle Hamilton MD
[2018-08-13] MEDS: Potassium Chloride 20 mEq ER Tab PO SCH (10:00)
[2018-08-13] MEDS: Nystatin 100,000 Units/gm Topical Pow(15 gm) TOP SCH ×2 (10:02→17:13)
[2018-08-13] MEDS: Collagenase 250 Units/gm Ointment(30 gm) TOP SCH (10:03)
[2018-08-13] MEDS: Silver Sulfadiazine 1% Cream (25 gm) TP SCH ×2 (10:03→17:14)
--- NOTE | 2018-08-13 10:16 | CP.PCM.PN ---
<Brook Buckner - Last Filed: 08/13/18 10:37> Subjective - Date & Time of Evaluation Date of Evaluation: 08/13/18 Time of Evaluation: 10:13 - Subjective Subjective: Podiatry progress note: Dr. Schroeder 57F patient seen and evaluated POD#2 L heel biopsy with debridement. Patient resting comfortably and in NAD. Patient aware of her current location and able to answer questions coherently at this time. No acute events overnight. Denies N/V/F/SOB/CP. Objective - Vital Signs/Intake and Output Vital Signs (last 24 hours): Temp Pulse Resp BP Pulse Ox 98.2 F 101 H 18 135/92 H 97 08/13/18 09:59 08/13/18 09:59 08/13/18 09:59 08/13/18 09:59 08/13/18 09:59 - Medications Medications: Current Medications Acetaminophen (Tylenol 325mg Tab) 650 mg PO Q4H PRN PRN Reason: Pain, Mild (1-3) Last Admin: 08/13/18 09:58 Dose: 650 mg Collagenase (Santyl) 0 gm TOP DAILY [facility] Last Admin: 08/13/18 10:03 Dose: 1 appl Heparin Sodium (Porcine) (Heparin) 5,000 units SC Q12 [facility]; Protocol Last Admin: 08/13/18 10:00 Dose: 5,000 units Dextrose (Dextrose 5% In Water 1000 Ml) 1,000 mls @ 40 mls/hr IV .Q24H [facility] Last Admin: 08/12/18 12:35 Dose: 40 mls/hr Nystatin (Nystop Topical Powder) 0 gm TOP BID [facility] Last Admin: 08/13/18 10:02 Dose: 1 u Potassium Chloride (K-Dur 20 Meq Er Tab) 40 meq PO BID [facility] Stop: 08/13/18 12:00 Last Admin: 08/13/18 10:00 Dose: 40 meq Risperidone (Risperdal Tab) 0.25 mg PO AMHS [facility]; Protocol Last Admin: 08/13/18 09:59 Dose: 0.25 mg Silver Sulfadiazine (Silvadene 1% 25 Gm) 1 gm TP BID [facility] Last Admin: 08/13/18 10:03 Dose: 1 gm Thiamine HCl (Vitamin B1 Tab) 100 mg PO DAILY [facility] Last Admin: 08/13/18 10:00 Dose: 100 mg - Labs Labs: 08/11/18 15:50 08/11/18 15:50 PT 11.3 SECONDS (9.4-12.5) 07/20/18 16:01 INR 0.99 07/20/18 16:01 APTT 27.8 Seconds (25.1-36.5) 08/02/18 05:40 - Constitutional Appears: Well, Non-toxic, No Acute Distress - Head Exam Head Exam: ATRAUMATIC, NORMOCEPHALIC - Eye Exam Eye Exam: EOMI, Normal appearance Pupil Exam: NORMAL ACCOMODATION - ENT Exam ENT Exam: Mucous Membranes Moist - Neck Exam Neck Exam: Normal Inspection - Respiratory Exam Respiratory Exam: Clear to Ausculation Bilateral - Cardiovascular Exam Cardiovascular Exam: REGULAR RHYTHM, +S1, +S2 - Extremities Exam Additional comments: B/L LE focused exam: Vasc: DP/PT 2/4 b/l. Cap refill < 3 sec to all digits, Warm to cool from proximal to distal b/l. No edema noted b/l. MSK: No pain upon palpation to left foot medial heel wound Neuro: Gross and protective sensation intact. Derm: Site of biopsy (left heel)100% granular base, no purulence, no malodor, no drainage, no bleeding, no erythema, no probe to bone. No clinical signs of active infection. Additional ulceration appreciated to the lateral aspect of the R foot with necrotic base, stable no purulence, no drainage, no clinical signs of infection. - Neurological Exam Neurological Exam: Alert, Awake, Oriented x3 Assessment and Plan - Assessment and Plan (Free Text) Assessment: 57F patient seen and evaluated POD#2 L heel biopsy with debridement. Plan: Patient seen and evaluated at bedside Pathology report L heel mass; infarcted verruca Intra-op pathology report; no malignancy LE RADHA exam; relatively normal RADHA and PVR examination at rest, possible mild b/l tibial disease LE MRI taken; limited postoperative changes seen at the posterior and inferior heel soft tissues without evident of OM Left foot 3 views x-ray: subcutaneous calcified mass, CT w/o contrast recommended. LE venous duplex (07/23): No evidence of DVT Local wound care: L foot dressed with xeroform, DSD. right wound santyl, Op tifoam stable for discharge from podiatry point of view Will continue to follow <Zac Schroeder - Last Filed: 08/17/18 11:19> Objective - Vital Signs/Intake and Output Vital Signs (last 24 hours): Temp Pulse Resp BP Pulse Ox 97.4 F L 89 18 96/54 L 100 08/17/18 06:00 08/17/18 06:00 08/17/18 06:00 08/17/18 06:00 08/17/18 06:00 Intake and Output: 08/17/18 08/17/18 06:59 18:59 Intake Total 300 Balance 300 - Medications Medications: Current Medications Acetaminophen (Tylenol 325mg Tab) 650 mg PO Q4H PRN PRN Reason: Pain, Mild (1-3) Last Admin: 08/14/18 11:11 Dose: 650 mg Collagenase (Santyl) 0 gm TOP DAILY [facility] Last Admin: 08/15/18 09:48 Dose: Not Given Heparin Sodium (Porcine) (Heparin) 5,000 units SC Q12 [facility]; Protocol Last Admin: 08/17/18 09:20 Dose: 5,000 units Dextrose (Dextrose 5% In Water 1000 Ml) 1,000 mls @ 40 mls/hr IV .Q24H [facility] Last Admin: 08/16/18 21:10 Dose: 40 mls/hr Lorazepam (Ativan) 1 mg IVP Q6H PRN; Protocol PRN Reason: Anxiety Last Admin: 08/17/18 09:20 Dose: 1 mg Nystatin (Nystop Topical Powder) 0 gm TOP BID [facility] Last Admin: 08/17/18 09:23 Dose: 1 u Quetiapine Fumarate (Seroquel) 25 mg PO HS [facility]; Protocol Last Admin: 08/16/18 21:58 Dose: 25 mg Risperidone (Risperdal Tab) 1 mg PO BID [facility]; Protocol Last Admin: 08/17/18 09:21 Dose: 1 mg Silver Sulfadiazine (Silvadene 1% 25 Gm) 1 gm TP BID [facility] Last Admin: 08/17/18 09:23 Dose: 1 gm Thiamine HCl (Vitamin B1 Tab) 100 mg PO DAILY [facility] Last Admin: 08/17/18 09:22 Dose: 100 mg - Labs Labs: 08/13/18 14:45 08/13/18 14:45 PT 11.3 SECONDS (9.4-12.5) 11/28/18 16:01 INR 0.99 07/20/18 16:01 APTT 27.8 Seconds (25.1-36.5) 08/02/18 05:40 Attending/Attestation - Attestation I have personally seen and examined this patient.: Yes I have fully participated in the care of the patient.: Yes I have reviewed all pertinent clinical information, including history, physical exam and plan: Yes
[2018-08-13 15:19] LABS: HEMOGLOBIN 11.4 g/dL (12.0-16.0); MEAN CELL VOLUME 96.6 fl (80.0-105.0); MEAN CORPUSCULAR HEMOGLOBIN 32.6 pg (25.0-35.0); MEAN CORPUSCULAR HGB CONC 33.7 g/dl (31.0-37.0); MEAN PLATELET VOLUME 9.2 fl (7.0-11.0); RBC 3.5 10^6/uL (3.5-6.1); RED CELL DISTRIBUTION WIDTH 14.7 % (11.5-14.5); WHITE BLOOD COUNT 5.2 10^3/uL (4.5-11.0)
--- NOTE | 2018-08-13 15:37 | RAD ---
Date of service: 08/13/2018 HISTORY: r/o Right lower lobe infil COMPARISON: 08/07/2018. FINDINGS: LUNGS: No active pulmonary disease. PLEURA: No significant pleural effusion identified, no pneumothorax apparent. CARDIOVASCULAR: No atherosclerotic calcification present Normal. OSSEOUS STRUCTURES: No significant abnormalities. VISUALIZED UPPER ABDOMEN: Normal. OTHER FINDINGS: None. IMPRESSION: No active disease. No significant interval change compared to the prior examination(s).
[2018-08-13 15:45] LABS: ALB/GLOB RATIO 1.1 (1.1-1.8); ALT/SGPT 32 U/L (7-56); AST/SGOT 38 U/L (14-36); BLOOD UREA NITROGEN 21 mg/dL (7-21); CALCIUM 10.1 mg/dL (8.4-10.5); GFR NON-AFRICAN AMERICAN > 60
[2018-08-14] MEDS: Silver Sulfadiazine 1% Cream (25 gm) TP SCH ×2 (11:05→17:34)
[2018-08-14] MEDS: Collagenase 250 Units/gm Ointment(30 gm) TOP SCH (11:05)
[2018-08-14] MEDS: Nystatin 100,000 Units/gm Topical Pow(15 gm) TOP SCH ×2 (11:05→17:33)
--- NOTE | 2018-08-14 12:45 | CP.PCM.PN ---
<Brook Buckner - Last Filed: 08/14/18 12:44> Subjective - Date & Time of Evaluation Date of Evaluation: 08/14/18 Time of Evaluation: 12:44 - Subjective Subjective: Podiatry progress note: Dr. Schroeder 57F patient seen and evaluated POD#3 L heel biopsy with debridement. Patient resting comfortably and in NAD. Patient aware of her current location and able to answer questions coherently at this time. No acute events overnight. Denies N/V/F/SOB/CP. Objective - Vital Signs/Intake and Output Vital Signs (last 24 hours): Temp Pulse Resp BP Pulse Ox 97.8 F 100 H 20 136/77 98 08/14/18 06:00 08/14/18 06:00 08/14/18 06:00 08/14/18 06:00 08/14/18 06:00 Intake and Output: 08/14/18 08/14/18 06:59 18:59 Intake Total 720 Balance 720 - Medications Medications: Current Medications Acetaminophen (Tylenol 325mg Tab) 650 mg PO Q4H PRN PRN Reason: Pain, Mild (1-3) Last Admin: 08/13/18 09:58 Dose: 650 mg Collagenase (Santyl) 0 gm TOP DAILY [facility] Last Admin: 08/13/18 10:03 Dose: 1 appl Heparin Sodium (Porcine) (Heparin) 5,000 units SC Q12 [facility]; Protocol Last Admin: 08/13/18 21:24 Dose: 5,000 units Dextrose (Dextrose 5% In Water 1000 Ml) 1,000 mls @ 40 mls/hr IV .Q24H [facility] Last Admin: 08/13/18 11:00 Dose: 40 mls/hr Nystatin (Nystop Topical Powder) 0 gm TOP BID [facility] Last Admin: 08/13/18 17:13 Dose: 1 u Risperidone (Risperdal Tab) 0.25 mg PO AMHS [facility]; Protocol Last Admin: 08/13/18 21:25 Dose: 0.25 mg Silver Sulfadiazine (Silvadene 1% 25 Gm) 1 gm TP BID [facility] Last Admin: 08/13/18 17:14 Dose: 1 gm Thiamine HCl (Vitamin B1 Tab) 100 mg PO DAILY [facility] Last Admin: 08/13/18 10:00 Dose: 100 mg - Labs Labs: 08/13/18 14:45 08/13/18 14:45 PT 11.3 SECONDS (9.4-12.5) 07/20/18 16:01 INR 0.99 07/20/18 16:01 APTT 27.8 Seconds (25.1-36.5) 08/02/18 05:40 - Constitutional Appears: Well, Non-toxic - Head Exam Head Exam: ATRAUMATIC - Eye Exam Eye Exam: Normal appearance Pupil Exam: NORMAL ACCOMODATION - ENT Exam ENT Exam: Mucous Membranes Moist - Extremities Exam Additional comments: Dressing clean, dry and intact B/L LE focused exam: Vasc: DP/PT 2/4 b/l. Cap refill < 3 sec to all digits, Warm to cool from proximal to distal b/l. No edema noted b/l. MSK: No pain upon palpation to left foot medial heel wound Neuro: Gross and protective sensation intact. Derm: Site of biopsy (left heel)100% granular base, no purulence, no malodor, no drainage, no bleeding, no erythema, no probe to bone. No clinical signs of active infection. Additional ulceration appreciated to the lateral aspect of the R foot with necrotic base, stable no purulence, no drainage, no clinical signs of infection. Assessment and Plan - Assessment and Plan (Free Text) Assessment: 57F patient seen and evaluated POD#3 L heel biopsy with debridement. Plan: Patient seen and evaluated at bedside Pathology report L heel mass; infarcted verruca Intra-op pathology report; no malignancy LE RADHA exam; relatively normal RADHA and PVR examination at rest, possible mild b/l tibial disease LE MRI taken; limited postoperative changes seen at the posterior and inferior heel soft tissues without evident of OM Left foot 3 views x-ray: subcutaneous calcified mass, CT w/o contrast recommended. LE venous duplex (07/23): No evidence of DVT Local wound care: L foot dressed with xeroform, DSD. right wound santyl, Optifoam stable for discharge from podiatry point of view Will continue to follow <Cuca Ramírez - Last Filed: 08/15/18 14:26> Objective - Vital Signs/Intake and Output Vital Signs (last 24 hours): Temp Pulse Resp BP Pulse Ox 97.4 F L 103 H 18 132/70 97 08/15/18 07:30 08/15/18 07:30 08/15/18 07:30 08/15/18 07:30 08/15/18 07:30 Intake and Output: 08/15/18 08/15/18 06:59 18:59 Intake Total 60 Balance 60 - Medications Medications: Current Medications Acetaminophen (Tylenol 325mg Tab) 650 mg PO Q4H PRN PRN Reason: Pain, Mild (1-3) Last Admin: 08/14/18 11:11 Dose: 650 mg Collagenase (Santyl) 0 gm TOP DAILY [facility] Last Admin: 08/14/18 11:05 Dose: 1 appl Heparin Sodium (Porcine) (Heparin) 5,000 units SC Q12 [facility]; Protocol Last Admin: 08/15/18 09:12 Dose: 5,000 units Dextrose (Dextrose 5% In Water 1000 Ml) 1,000 mls @ 40 mls/hr IV .Q24H [facility] Last Admin: 08/14/18 11:04 Dose: 40 mls/hr Lorazepam (Ativan) 1 mg IVP Q6H PRN; Protocol PRN Reason: Anxiety Nystatin (Nystop Topical Powder) 0 gm TOP BID [facility] Last Admin: 08/15/18 09:16 Dose: 1 u Quetiapine Fumarate (Seroquel) 25 mg PO HS [facility]; Protocol Risperidone (Risperdal Tab) 0.25 mg PO AMHS [facility]; Protocol Last Admin: 08/15/18 09:12 Dose: 0.25 mg Silver Sulfadiazine (Silvadene 1% 25 Gm) 1 gm TP BID [facility] Last Admin: 08/15/18 09:16 Dose: 1 gm Thiamine HCl (Vitamin B1 Tab) 100 mg PO DAILY [facility] Last Admin: 08/15/18 09:12 Dose: 100 mg - Labs Labs: 08/13/18 14:45 08/13/18 14:45 PT 11.3 SECONDS (9.4-12.5) 07/20/18 16:01 INR 0.99 07/20/18 16:01 APTT 27.8 Seconds (25.1-36.5) 08/02/18 05:40 Attending/Attestation - Attestation I have personally seen and examined this patient.: Yes I have fully participated in the care of the patient.: Yes I have reviewed all pertinent clinical information, including history, physical exam and plan: Yes
--- NOTE | 2018-08-14 17:30 | PN ---
DATE: 08/14/2018 SUBJECTIVE: The patient is in bed, in no acute distress, nontoxic. PHYSICAL EXAMINATION: VITAL SIGNS: Temperature is 98, blood pressure is 120/70, and respiratory rate is 16. HEENT: Unremarkable. NECK: Supple. LUNGS: Decreased breath sounds. HEART: Normal S1 and S2. ABDOMEN: Soft. LABORATORY DATA: Noted. The patient's white count is 5.2, hemoglobin 11. Chemistries are noted. Urinalysis is reviewed, and microbiology is pending. The patient had a chest x-ray done yesterday and showed no active lung disease. ASSESSMENT AND PLAN: A 58-year-old female, status post septic shock with -dependent respiratory failure, extubated, colitis, and pancreatitis, has completed 10 days of Zosyn. Currently the patient is off of antibiotics, has questionable change in mental status. Repeat septic workup is done yesterday, waiting for those results. Ashkan Bah MD
--- NOTE | 2018-08-15 09:15 | PN ---
DATE: 08/13/2018 SUBJECTIVE: The patient is in bed, seen earlier this morning. There is a questionable change in her mental status as per nursing. She is not as verbal as she was. It is unknown what her baseline mental status at home was. PHYSICAL EXAMINATION: VITAL SIGNS: Temperature is 98, blood pressure is 135/90, respiratory rate of 18, heart rate of 101. HEENT: Examination of HEENT is unremarkable. NECK: Supple. LUNGS: Have decreased breath sounds. HEART: Normal S1 and S2. ABDOMEN: Soft, nontender. LABORATORY DATA: Laboratory examination reveals a white count of 7.8, hemoglobin of 10, platelets of 419. BUN of 30, creatinine of 0.9. Urinalysis is noted. HIV is negative and blood cultures are negative. Urine cultures are negative. Stool C. Diff antigen is positive. Review of orders reveals the patient to be off antibiotics. ASSESSMENT AND PLAN: This is a 58-year-old female who was seen earlier today in 576, bed 1, nurse had been concerned about change in her mental status. Clinically, she appears the same. The patient initially was admitted with septic shock, status post vent dependent respiratory failure, now extubated due to colitis and pancreatitis, biliary blockage with pseudomembranous colitis, has completed 10 days of Zosyn and 10 days of p.o. vancomycin. HIDA scan is negative, currently off antibiotics questionable new change in her mental status. The patient had a CAT scan of the head, which was negative day before yesterday. The patient is on heparin and the patient is also on lorazepam intermittently, which may cause change in her mental status and Risperdal. I doubt this is infectious in etiology, although I will repeat pancultures, procalcitonin and septic workup including a chest x-ray. We will follow with you. Ashkan Bah MD
[2018-08-15] MEDS: Silver Sulfadiazine 1% Cream (25 gm) TP SCH ×2 (09:16→17:55)
[2018-08-15] MEDS: Nystatin 100,000 Units/gm Topical Pow(15 gm) TOP SCH ×2 (09:16→17:49)
[2018-08-15] MEDS: Collagenase 250 Units/gm Ointment(30 gm) TOP SCH (09:48)
--- NOTE | 2018-08-15 11:48 | CP.PCM.PN ---
<Brook Buckner - Last Filed: 08/15/18 15:51> Subjective - Date & Time of Evaluation Date of Evaluation: 08/15/18 Time of Evaluation: 11:33 - Subjective Subjective: Podiatry progress note: Dr. ramírez 57F patient seen and evaluated POD#4 L heel biopsy with debridement. Patient resting comfortably and in NAD. Patient sleeping with the blanket over her face and refusing to talk. No acute events overnight. Denies N/V/F/SOB/CP. Objective - Vital Signs/Intake and Output Vital Signs (last 24 hours): Temp Pulse Resp BP Pulse Ox 97.4 F L 103 H 18 132/70 97 08/15/18 07:30 08/15/18 07:30 08/15/18 07:30 08/15/18 07:30 08/15/18 07:30 Intake and Output: 08/15/18 08/15/18 06:59 18:59 Intake Total 60 Balance 60 - Medications Medications: Current Medications Acetaminophen (Tylenol 325mg Tab) 650 mg PO Q4H PRN PRN Reason: Pain, Mild (1-3) Last Admin: 08/14/18 11:11 Dose: 650 mg Collagenase (Santyl) 0 gm TOP DAILY [facility] Last Admin: 08/14/18 11:05 Dose: 1 appl Heparin Sodium (Porcine) (Heparin) 5,000 units SC Q12 [facility]; Protocol Last Admin: 08/15/18 09:12 Dose: 5,000 units Dextrose (Dextrose 5% In Water 1000 Ml) 1,000 mls @ 40 mls/hr IV .Q24H [facility] Last Admin: 08/14/18 11:04 Dose: 40 mls/hr Lorazepam (Ativan) 0.5 mg IVP Q8H PRN; Protocol PRN Reason: Agitation Last Admin: 08/15/18 09:13 Dose: 0.5 mg Nystatin (Nystop Topical Powder) 0 gm TOP BID [facility] Last Admin: 08/15/18 09:16 Dose: 1 u Risperidone (Risperdal Tab) 0.25 mg PO AMHS [facility]; Protocol Last Admin: 08/15/18 09:12 Dose: 0.25 mg Silver Sulfadiazine (Silvadene 1% 25 Gm) 1 gm TP BID [facility] Last Admin: 08/15/18 09:16 Dose: 1 gm Thiamine HCl (Vitamin B1 Tab) 100 mg PO DAILY [facility] Last Admin: 08/15/18 09:12 Dose: 100 mg - Labs Labs: 08/13/18 14:45 08/13/18 14:45 PT 11.3 SECONDS (9.4-12.5) 07/20/18 16:01 INR 0.99 07/20/18 16:01 APTT 27.8 Seconds (25.1-36.5) 08/02/18 05:40 - Constitutional Appears: Well, Non-toxic, No Acute Distress - Head Exam Head Exam: ATRAUMATIC, NORMOCEPHALIC - Eye Exam Eye Exam: Normal appearance Pupil Exam: NORMAL ACCOMODATION - ENT Exam ENT Exam: Mucous Membranes Moist - Neck Exam Neck Exam: Normal Inspection - Extremities Exam Additional comments: B/L LE focused exam: Vasc: DP/PT 2/4 b/l. Cap refill < 3 sec to all digits, Warm to cool from p roximal to distal b/l. No edema noted b/l. MSK: No pain upon palpation to left foot medial heel wound Neuro: Gross and protective sensation intact. Derm: Site of biopsy (left heel)100% granular base, no purulence, no malodor, no drainage, no bleeding, no erythema, no probe to bone. No clinical signs of active infection. Additional ulceration appreciated to the lateral aspect of the R foot with an eschar, stable no purulence, no drainage, no clinical signs of infection. Assessment and Plan - Assessment and Plan (Free Text) Assessment: 57F patient seen and evaluated POD#4 L heel biopsy with debridement. Plan: Patient seen and evaluated at bedside Pathology report L heel mass; infarcted verruca Intra-op pathology report; no malignancy LE RADHA exam; relatively normal RADHA and PVR examination at rest, possible mild b/l tibial disease LE MRI taken; limited postoperative changes seen at the posterior and inferior heel soft tissues without evident of OM Left foot 3 views x-ray: subcutaneous calcified mass, CT w/o contrast recommended. LE venous duplex (07/23): No evidence of DVT Local wound care: L foot dressed with optifoam. right wound dressed with maxorb and DSD stable for discharge from podiatry point of view Will continue to follow <Cuca Ramírez - Last Filed: 08/21/18 18:09> Objective - Vital Signs/Intake and Output Vital Signs (last 24 hours): Temp Pulse Resp BP Pulse Ox 98.1 F 82 18 125/69 100 08/21/18 14:17 08/21/18 14:17 08/21/18 14:17 08/21/18 14:17 08/21/18 14:17 Intake and Output: 08/21/18 08/21/18 06:59 18:59 Intake Total 210 Balance 210 - Medications Medications: Current Medications Acetaminophen (Tylenol 325mg Tab) 650 mg PO Q4H PRN PRN Reason: Pain, Mild (1-3) Last Admin: 08/18/18 10:06 Dose: 650 mg Collagenase (Santyl) 0 gm TOP DAILY [facility] Last Admin: 08/15/18 09:48 Dose: Not Given Gabapentin (Neurontin) 100 mg PO TID [facility] Last Admin: 08/21/18 17:18 Dose: 100 mg Dextrose (Dextrose 5% In Water 1000 Ml) 1,000 mls @ 40 mls/hr IV .Q24H [facility] Last Admin: 08/21/18 12:05 Dose: 40 mls/hr Lorazepam (Ativan) 1 mg IVP Q6H PRN; Protocol PRN Reason: Anxiety Last Admin: 08/21/18 12:05 Dose: 1 mg Nystatin (Nystop Topical Powder) 0 gm TOP BID [facility] Last Admin: 08/21/18 10:39 Dose: Not Given Quetiapine Fumarate (Seroquel) 25 mg PO HS [facility]; Protocol Last Admin: 08/20/18 23:01 Dose: 25 mg Risperidone (Risperdal Tab) 2 mg PO BID [facility]; Protocol Last Admin: 08/21/18 17:17 Dose: 2 mg Thiamine HCl (Vitamin B1 Tab) 100 mg PO DAILY [facility] Last Admin: 08/21/18 10:38 Dose: 100 mg - Labs Labs: 08/21/18 07:00 08/21/18 07:00 PT 11.3 SECONDS (9.4-12.5) 07/20/18 16:01 INR 0.99 07/20/18 16:01 APTT 27.8 Seconds (25.1-36.5) 08/02/18 05:40 Attending/Attestation - Attestation I have personally seen and examined this patient.: Yes I have fully participated in the care of the patient.: Yes I have reviewed all pertinent clinical information, including history, physical exam and plan: Yes
--- NOTE | 2018-08-15 12:41 | PN ---
DATE: 08/14/2018 SUBJECTIVE: This 57-year-old female remains hospitalized and was actively hallucinating at the time of my interview. A repeat chest x-ray performed yesterday showed no active disease and the patient was seen by Dr. Bah from Infectious Disease and a repeat septic workup was requested and is pending. PHYSICAL EXAMINATION: VITAL SIGNS: At the time of my interview, her temperature 97.8, respirations 20, pulse 100, blood pressure 136/77 and pulse ox 98% room air. LABORATORY DATA: Random blood sugar was 222, previously 81, white count 5200, hemoglobin 11.4, hematocrit 33.8, platelets 497,000. Urinalysis was unremarkable. HIV-1 and 2 were negative. Urine culture showed no growth.. IMPRESSION: A 57-year-old female with psychosis and comorbidities of peripheral neuropathy; admission for septic shock with respiratory failure, now resolved; and history of marijuana and alcohol abuse and misuse. PLAN: The plan at present as discussed with nurses, Gamal Silva, and nurse, Gayatri Noel, registered nurse, will be to continue Ativan 0.5 mg IV every 8 hours p.r.n. agitation. She continues on Risperdal 0.25 mg p.o. b.i.d. She will be scheduled for physical therapy for reconditioning and gait training and disposition will be discussed with Social Service once the patient's clinical status stabilizes. All of the above was reviewed with nursing. All questions were answered. Kena Lazo MD
--- NOTE | 2018-08-15 13:28 | PN ---
DATE: 08/13/2018 SUBJECTIVE: This 57-year-old female remains hospitalized. She has multiple ongoing problems including acute psychosis and deconditioning. I did review her preliminary breast biopsy report. It does show no evidence of breast cancer. The patient also had a left heel wound debrided by Dr. Ramírez from Podiatry and no malignant changes were noted. The patient remains confused. A repeat CT of the head was unremarkable and the patient has been started on Risperdal 0.[address] Love from Psychiatry. PHYSICAL EXAMINATION: VITAL SIGNS: On physical exam, the patient's temperature was 97.8, respirations 20, pulse 100 and blood pressure 136/77 with a pulse ox of 98%. IMPRESSION: The patient is a 58-year-old female with deconditioning, psychosis, admitted with septic shock and history of alcohol and marijuana misuse and abuse prior to admission, now with sacral sores and heel ulcer being followed by wound care team and Podiatry and Dr. Love from Psychiatry for psychosis and Dr. Lyle Hamilton from Neurology. PLAN: The plan is to continue psychotropic medication including Risperdal 0.25 mg b.i.d. She will continue with Ativan 0.5 mg IV every 8 hours p.r.n. anxiety. She remains on heparin subcu pending ambulation safety and will continue on wound care instructions as outlined. The patient is tolerating thiamine 100 mg p.o. daily and based on clinical progress, disposition will be decided with Social Service and family. Kena Lazo MD
--- NOTE | 2018-08-15 19:51 | PN ---
DATE: 08/15/2018 SUBJECTIVE: The patient is in bed in no acute distress, nontoxic. PHYSICAL EXAMINATION VITAL SIGNS: Temperature is 97, blood pressure is 130/70, respiratory of 18. HEENT: Unremarkable. NECK: Supple. CARDIOPULMONARY: Normal S1, S2. LUNGS: Have decreased breath sounds. ABDOMEN: Soft and nontender. LABORATORY DATA: Laboratory examination reveals a white count of 5.2, hemoglobin of 11, platelets of 497. BUN of 21, creatinine of 0.8. Procalcitonin is 0.05. Microbiology reveals the blood cultures are negative. ASSESSMENT AND PLAN: This is a 58-year-old female status post septic shock with ventilatory-dependent respiratory failure, extubated pancreatitis, has completed 10 days of antibiotics of Zosyn. Currently off antibiotics, afebrile. Review of orders. The patient scheduled for an MRI of the brain.. We will follow with you. Ashkan Bah MD
--- NOTE | 2018-08-15 20:53 | PN ---
DATE: 08/15/2018 SUBJECTIVE: This case was reviewed with nursing. The patient remains disorganized, crying out at times, and at times is actively hallucinating. A septic workup by Infectious Disease is pending. Her Risperdal has been increased to 1 mg b.i.d. The patient does have a history of marijuana and alcohol use/abuse. Dewayne Love MD/ PhD
[2018-08-16] MEDS: Nystatin 100,000 Units/gm Topical Pow(15 gm) TOP SCH ×2 (10:04→17:28)
[2018-08-16] MEDS: Silver Sulfadiazine 1% Cream (25 gm) TP SCH ×2 (10:04→17:28)
--- NOTE | 2018-08-16 17:14 | CP.PCM.PN ---
<Brook Buckner - Last Filed: 08/16/18 17:14> Subjective - Date & Time of Evaluation Date of Evaluation: 08/16/18 Time of Evaluation: 17:13 - Subjective Subjective: Podiatry progress note: Dr. padilla/ino 58F patient seen and evaluated POD#5 L heel biopsy with debridement. Patient resting comfortably and in NAD. Patient sleeping with the blanket over her face and refusing to talk. No acute events overnight. Denies N/V/F/SOB/CP. Objective - Vital Signs/Intake and Output Vital Signs (last 24 hours): Temp Pulse Resp BP Pulse Ox 98.0 F 85 20 111/58 L 100 08/16/18 14:00 08/16/18 14:00 08/16/18 14:00 08/16/18 14:00 08/16/18 14:00 Intake and Output: 08/16/18 08/16/18 06:59 18:59 Intake Total 120 Balance 120 - Medications Medications: Current Medications Acetaminophen (Tylenol 325mg Tab) 650 mg PO Q4H PRN PRN Reason: Pain, Mild (1-3) Last Admin: 08/14/18 11:11 Dose: 650 mg Collagenase (Santyl) 0 gm TOP DAILY [facility] Last Admin: 08/15/18 09:48 Dose: Not Given Heparin Sodium (Porcine) (Heparin) 5,000 units SC Q12 [facility]; Protocol Last Admin: 08/16/18 10:03 Dose: 5,000 units Dextrose (Dextrose 5% In Water 1000 Ml) 1,000 mls @ 40 mls/hr IV .Q24H [facility] Last Admin: 08/16/18 01:00 Dose: 40 mls/hr Lorazepam (Ativan) 1 mg IVP Q6H PRN; Protocol PRN Reason: Anxiety Last Admin: 08/16/18 12:00 Dose: 1 mg Nystatin (Nystop Topical Powder) 0 gm TOP BID [facility] Last Admin: 08/16/18 10:04 Dose: 1 u Quetiapine Fumarate (Seroquel) 25 mg PO HS [facility]; Protocol Last Admin: 08/15/18 21:29 Dose: 25 mg Risperidone (Risperdal Tab) 1 mg PO BID [facility]; Protocol Last Admin: 08/16/18 10:04 Dose: 1 mg Silver Sulfadiazine (Silvadene 1% 25 Gm) 1 gm TP BID [facility] Last Admin: 08/16/18 10:04 Dose: 1 gm Thiamine HCl (Vitamin B1 Tab) 100 mg PO DAILY [facility] Last Admin: 08/16/18 10:03 Dose: 100 mg - Labs Labs: 08/13/18 14:45 08/13/18 14:45 PT 11.3 SECONDS (9.4-12.5) 07/20/18 16:01 INR 0.99 07/20/18 16:01 APTT 27.8 Seconds (25.1-36.5) 08/02/18 05:40 - Constitutional Appears: Well, Non-toxic, No Acute Distress - Head Exam Head Exam: ATRAUMATIC - Eye Exam Eye Exam: Normal appearance Pupil Exam: NORMAL ACCOMODATION - ENT Exam ENT Exam: Mucous Membranes Moist - Extremities Exam Additional comments: B/L LE focused exam: Vasc: DP/PT 2/4 b/l. Cap refill < 3 sec to all digits, Warm to cool from proximal to distal b/l. No edema noted b/l. MSK: No pain upon palpation to left foot medial heel wound Neuro: Gross and protective sensation intact. Derm: Site of biopsy (left heel)100% granular base, no purulence, no malodor, no drainage, no bleeding, no erythema, no probe to bone. No clinical signs of active infection. Additional ulceration appreciated to the lateral aspect of the R foot with an eschar, stable no purulence, no drainage, no clinical signs of infection. Assessment and Plan - Assessment and Plan (Free Text) Assessment: 58F patient seen and evaluated POD#5 L heel biopsy with debridement. Plan: Patient seen and evaluated at bedside Pathology report L heel mass; infarcted verruca Intra-op pathology report; no malignancy LE RADHA exam; relatively normal RADHA and PVR examination at rest, possible mild b/l tibial disease LE MRI taken; limited postoperative changes seen at the posterior and inferior heel soft tissues without evident of OM Left foot 3 views x-ray: subcutaneous calcified mass, CT w/o contrast recommended. LE venous duplex (07/23): No evidence of DVT Local wound care: L foot dressed with optifoam. right wound dressed with maxorb and DSD stable for discharge from podiatry point of view Will continue to follow <Zac Schroeder - Last Filed: 08/17/18 11:19> Objective - Vital Signs/Intake and Output Vital Signs (last 24 hours): Temp Pulse Resp BP Pulse Ox 97.4 F L 89 18 96/54 L 100 08/17/18 06:00 08/17/18 06:00 08/17/18 06:00 08/17/18 06:00 08/17/18 06:00 Intake and Output: 08/17/18 08/17/18 06:59 18:59 Intake Total 300 Balance 300 - Medications Medications: Current Medications Acetaminophen (Tylenol 325mg Tab) 650 mg PO Q4H PRN PRN Reason: Pain, Mild (1-3) Last Admin: 08/14/18 11:11 Dose: 650 mg Collagenase (Santyl) 0 gm TOP DAILY [facility] Last Admin: 08/15/18 09:48 Dose: Not Given Heparin Sodium (Porcine) (Heparin) 5,000 units SC Q12 [facility]; Protocol Last Admin: 08/17/18 09:20 Dose: 5,000 units Dextrose (Dextrose 5% In Water 1000 Ml) 1,000 mls @ 40 mls/hr IV .Q24H [facility] Last Admin: 08/16/18 21:10 Dose: 40 mls/hr Lorazepam (Ativan) 1 mg IVP Q6H PRN; Protocol PRN Reason: Anxiety Last Admin: 08/17/18 09:20 Dose: 1 mg Nystatin (Nystop Topical Powder) 0 gm TOP BID [facility] Last Admin: 08/17/18 09:23 Dose: 1 u Quetiapine Fumarate (Seroquel) 25 mg PO HS [facility]; Protocol Last Admin: 08/16/18 21:58 Dose: 25 mg Risperidone (Risperdal Tab) 1 mg PO BID [facility]; Protocol Last Admin: 08/17/18 09:21 Dose: 1 mg Silver Sulfadiazine (Silvadene 1% 25 Gm) 1 gm TP BID [facility] Last Admin: 08/17/18 09:23 Dose: 1 gm Thiamine HCl (Vitamin B1 Tab) 100 mg PO DAILY [facility] Last Admin: 08/17/18 09:22 Dose: 100 mg - Labs Labs: 08/13/18 14:45 08/13/18 14:45 PT 11.3 SECONDS (9.4-12.5) 07/20/18 16:01 INR 0.99 07/20/18 16:01 APTT 27.8 Seconds (25.1-36.5) 08/02/18 05:40 Attending/Attestation - Attestation I have personally seen and examined this patient.: Yes I have fully participated in the care of the patient.: Yes I have reviewed all pertinent clinical information, including history, physical exam and plan: Yes
--- NOTE | 2018-08-16 18:47 | PN ---
DATE: 08/16/2018 SUBJECTIVE: The patient is in bed, in no acute distress, nontoxic, no changes. PHYSICAL EXAMINATION: VITAL SIGNS: Temperature is 98, blood pressure is 96/40, respiratory rate of 18. HEENT: Unremarkable. NECK: Supple. LUNGS: Have decreased breath sounds. HEART; Normal S1 and S2. ABDOMEN: Soft. LABORATORY EXAMINATION: Reveals a white count of 5.4. Chemistries are noted and serologies noted. ASSESSMENT AND PLAN: A 57-year-old female, status post septic shock, respiratory failure, pancreatitis, completed 10 days of Zosyn. Currently off of antibiotics, afebrile, and the patient at risk of developing nosocomial infections. The patient is scheduled for MRI of the brain as ordered by Dr. Lyle Hamilton. We will follow closely with you. Ashkan Bah MD
--- NOTE | 2018-08-17 08:44 | PN ---
DATE: 08/15/2018 CHIEF COMPLIANT: Followup for altered mental status. SUBJECTIVE: The patient is still intermittently hallucinating and intermittent delirium. MRI of the brain is currently pending. Awaiting psychiatric's intervention. I have placed her on Seroquel 25 mg p.o. at bedtime. 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 REVIEW OF SYSTEM: A 14-point review of systems is negative except per the HPI. ALLERGIES: NO KNOWN DRUG ALLERGIES. MEDICATIONS: Reviewed by nurse's reconciliation sheet. FAMILY HISTORY: Noncontributory. LABORATORY DATA: Sodium is , blood sugar is 172, PHYSICAL EXAMINATION: GENERAL: The patient is sitting up on bed. VITAL SIGNS: Temperature 97.4, pulse rate 102, blood pressure , respiratory rate 18 and oxygen saturation 97% on room air. HEENT: Atraumatic, normocephalic. PERRLA. Extraocular muscles intact. NECK: Supple. No JVD. No adenopathy noted. LUNGS: Clear to auscultation. No adventitious sounds. HEART: S1 and S2. Normal rate and rhythm. No murmurs, rubs or gallops. ABDOMEN: Soft, nontender and nondistended. Bowel sounds are present. EXTREMITIES: No clubbing. No cyanosis. Peripheral pulses 2+ felt bilaterally. NEUROLOGICAL: The patient is alert and oriented to person, place, not sure of month or year, mildly hallucinating. Recall time is 0/3. Poor attention span. Slow thought process. Cranial nerves II through XII intact. Speech is hypophonic. Motor Exam: Has atrophy of both the intrinsic muscles on her hand and possible in distal muscles. Sensory: Decreased light touch and pinprick up to the calves bilaterally. Decreased vibration at the toes. Moves all extremities equally. Toes downgoing bilaterally. DTRs are 2+ throughout and 1 at both knees and ankles. Coordination: [id number] is intact. No dysmetria noted. Gait is deferred for now. IMPRESSION: The patient has acute active delirium, superimposed underlying cognitive impairment with organic brain syndrome and occasional episodes of metabolic derangements. She also has a history of underlying diabetic neuropathy and had had hypoglycemic episodes in her admission in the past. At this time: 1. Keep her blood sugars from 140 to 180. 2. Delirium precaution. 3. Keep systolic blood pressure in 130s to 140s and diastolic in 70s and 80s. 4. Thiamine 100 mg p.o. twice daily for neuronal activity. 5. Seroquel 25 mg p.o. at bedtime and follow up with Psychiatry. follow up MRI of the brain. Lyle Hamilton MD
[2018-08-17] MEDS: Nystatin 100,000 Units/gm Topical Pow(15 gm) TOP SCH ×2 (09:23→17:14)
[2018-08-17] MEDS: Silver Sulfadiazine 1% Cream (25 gm) TP SCH ×2 (09:23→17:14)
--- NOTE | 2018-08-17 11:02 | CP.PCM.PN ---
<Vane Zapata - Last Filed: 08/17/18 11:03> Subjective - Date & Time of Evaluation Date of Evaluation: 08/17/18 Time of Evaluation: 11:01 - Subjective Subjective: Podiatry Progress Note: Dr. Ramírez 58F patient seen and evaluated POD#6 L heel biopsy with debridement. Patient resting in bed comfortably, confused today. Unable to elicit full history. Per nursing, no acute events overnight. Objective - Vital Signs/Intake and Output Vital Signs (last 24 hours): Temp Pulse Resp BP Pulse Ox 97.4 F L 89 18 96/54 L 100 08/17/18 06:00 08/17/18 06:00 08/17/18 06:00 08/17/18 06:00 08/17/18 06:00 Intake and Output: 08/17/18 08/17/18 06:59 18:59 Intake Total 300 Balance 300 - Medications Medications: Current Medications Acetaminophen (Tylenol 325mg Tab) 650 mg PO Q4H PRN PRN Reason: Pain, Mild (1-3) Last Admin: 08/14/18 11:11 Dose: 650 mg Collagenase (Santyl) 0 gm TOP DAILY [facility]ELY Last Admin: 08/15/18 09:48 Dose: Not Given Heparin Sodium (Porcine) (Heparin) 5,000 units SC Q12 [facility]; Protocol Last Admin: 08/17/18 09:20 Dose: 5,000 units Dextrose (Dextrose 5% In Water 1000 Ml) 1,000 mls @ 40 mls/hr IV .Q24H [facility] Last Admin: 08/16/18 21:10 Dose: 40 mls/hr Lorazepam (Ativan) 1 mg IVP Q6H PRN; Protocol PRN Reason: Anxiety Last Admin: 08/17/18 09:20 Dose: 1 mg Nystatin (Nystop Topical Powder) 0 gm TOP BID [facility] Last Admin: 08/17/18 09:23 Dose: 1 u Quetiapine Fumarate (Seroquel) 25 mg PO HS MELY; Protocol Last Admin: 08/16/18 21:58 Dose: 25 mg Risperidone (Risperdal Tab) 1 mg PO BID MELY; Protocol Last Admin: 08/17/18 09:21 Dose: 1 mg Silver Sulfadiazine (Silvadene 1% 25 Gm) 1 gm TP BID [facility]ELY Last Admin: 08/17/18 09:23 Dose: 1 gm Thiamine HCl (Vitamin B1 Tab) 100 mg PO DAILY [facility]ELY Last Admin: 08/17/18 09:22 Dose: 100 mg - Labs Labs: 08/13/18 14:45 08/13/18 14:45 PT 11.3 SECONDS (9.4-12.5) 07/20/18 16:01 INR 0.99 07/20/18 16:01 APTT 27.8 Seconds (25.1-36.5) 08/02/18 05:40 - Constitutional Appears: Non-toxic, No Acute Distress - Head Exam Head Exam: ATRAUMATIC, NORMOCEPHALIC - Extremities Exam Additional comments: B/L LE focused exam: Vasc: DP/PT 2/4 b/l. Cap refill < 3 sec to all digits, Warm to cool from proximal to distal b/l. No edema noted b/l. MSK: No pain upon palpation to left foot medial heel wound Neuro: Gross and protective sensation intact. Derm: Site of biopsy (left heel)100% granular base, no purulence, no malodor, no drainage, no bleeding, no erythema, no probe to bone. No clinical signs of active infection. Additional ulceration appreciated to the lateral aspect of the R foot with an eschar, stable no purulence, no drainage, no clinical signs of infection. - Neurological Exam Neurological Exam: Alert, Awake. absent: Oriented x3 Assessment and Plan - Assessment and Plan (Free Text) Assessment: 58F patient seen and evaluated POD#6 L heel biopsy with debridement. Plan: Patient seen and evaluated at bedside Pathology report L heel mass; infarcted verruca Intra-op pathology report; no malignancy LE RADHA exam; relatively normal RADHA and PVR examination at rest, possible mild b/l tibial disease LE MRI taken; limited postoperative changes seen at the posterior and inferior heel soft tissues without evident of OM Left foot 3 views x-ray: subcutaneous calcified mass, CT w/o contrast recom mended. LE venous duplex (07/23): No evidence of DVT Local wound care: L foot dressed with optifoam. right wound dressed with maxorb and DSD Stable for discharge from podiatry point of view <Cuca Ramírez - Last Filed: 08/21/18 18:08> Objective - Vital Signs/Intake and Output Vital Signs (last 24 hours): Temp Pulse Resp BP Pulse Ox 98.1 F 82 18 125/69 100 08/21/18 14:17 08/21/18 14:17 08/21/18 14:17 08/21/18 14:17 08/21/18 14:17 Intake and Output: 08/21/18 08/21/18 06:59 18:59 Intake Total 210 Balance 210 - Medications Medications: Current Medications Acetaminophen (Tylenol 325mg Tab) 650 mg PO Q4H PRN PRN Reason: Pain, Mild (1-3) Last Admin: 08/18/18 10:06 Dose: 650 mg Collagenase (Santyl) 0 gm TOP DAILY MELY Last Admin: 08/15/18 09:48 Dose: Not Given Gabapentin (Neurontin) 100 mg PO TID MELY Last Admin: 08/21/18 17:18 Dose: 100 mg Dextrose (Dextrose 5% In Water 1000 Ml) 1,000 mls @ 40 mls/hr IV .Q24H [facility] Last Admin: 08/21/18 12:05 Dose: 40 mls/hr Lorazepam (Ativan) 1 mg IVP Q6H PRN; Protocol PRN Reason: Anxiety Last Admin: 08/21/18 12:05 Dose: 1 mg Nystatin (Nystop Topical Powder) 0 gm TOP BID MELY Last Admin: 08/21/18 10:39 Dose: Not Given Quetiapine Fumarate (Seroquel) 25 mg PO HS MELY; Protocol Last Admin: 08/20/18 23:01 Dose: 25 mg Risperidone (Risperdal Tab) 2 mg PO BID MELY; Protocol Last Admin: 08/21/18 17:17 Dose: 2 mg Thiamine HCl (Vitamin B1 Tab) 100 mg PO DAILY MELY Last Admin: 08/21/18 10:38 Dose: 100 mg - Labs Labs: 08/21/18 07:00 08/21/18 07:00 PT 11.3 SECONDS (9.4-12.5) 07/20/18 16:01 INR 0.99 07/20/18 16:01 APTT 27.8 Seconds (25.1-36.5) 08/02/18 05:40 Attending/Attestation - Attestation I have personally seen and examined this patient.: Yes I have fully participated in the care of the patient.: Yes I have reviewed all pertinent clinical information, including history, physical exam and plan: Yes
--- NOTE | 2018-08-17 13:23 | CP.PCM.PN ---
Subjective - Date & Time of Evaluation Date of Evaluation: 08/17/18 Time of Evaluation: 09:30 - Subjective Subjective: Comfortable, not in distress, no fevers. Objective - Vital Signs/Intake and Output Vital Signs (last 24 hours): Temp Pulse Resp BP Pulse Ox 97.4 F L 89 18 96/54 L 100 08/17/18 06:00 08/17/18 06:00 08/17/18 06:00 08/17/18 06:00 08/17/18 06:00 Intake and Output: 08/17/18 08/17/18 06:59 18:59 Intake Total 300 Balance 300 - Medications Medications: Current Medications Acetaminophen (Tylenol 325mg Tab) 650 mg PO Q4H PRN PRN Reason: Pain, Mild (1-3) Last Admin: 08/14/18 11:11 Dose: 650 mg Collagenase (Santyl) 0 gm TOP DAILY MELY Last Admin: 08/15/18 09:48 Dose: Not Given Heparin Sodium (Porcine) (Heparin) 5,000 units SC Q12 MELY; Protocol Last Admin: 08/17/18 09:20 Dose: 5,000 units Dextrose (Dextrose 5% In Water 1000 Ml) 1,000 mls @ 40 mls/hr IV .Q24H [facility] Last Admin: 08/16/18 21:10 Dose: 40 mls/hr Lorazepam (Ativan) 1 mg IVP Q6H PRN; Protocol PRN Reason: Anxiety Last Admin: 08/17/18 09:20 Dose: 1 mg Nystatin (Nystop Topical Powder) 0 gm TOP BID MELY Last Admin: 08/17/18 09:23 Dose: 1 u Quetiapine Fumarate (Seroquel) 25 mg PO HS MELY; Protocol Last Admin: 08/16/18 21:58 Dose: 25 mg Risperidone (Risperdal Tab) 1 mg PO BID MELY; Protocol Last Admin: 08/17/18 09:21 Dose: 1 mg Silver Sulfadiazine (Silvadene 1% 25 Gm) 1 gm TP BID [facility] Last Admin: 08/17/18 09:23 Dose: 1 gm Thiamine HCl (Vitamin B1 Tab) 100 mg PO DAILY [facility]ELY Last Admin: 08/17/18 09:22 Dose: 100 mg - Labs Labs: 08/13/18 14:45 08/13/18 14:45 PT 11.3 SECONDS (9.4-12.5) 07/20/18 16:01 INR 0.99 07/20/18 16:01 APTT 27.8 Seconds (25.1-36.5) 08/02/18 05:40 - Constitutional Appears: Chronically Ill - Head Exam Head Exam: NORMAL INSPECTION - Respiratory Exam Respiratory Exam: Decreased Breath Sounds - Cardiovascular Exam Cardiovascular Exam: +S1, +S2 - GI/Abdominal Exam GI & Abdominal Exam: Soft. absent: Tenderness Assessment and Plan - Assessment and Plan (Free Text) Plan: Assessment S/P Septic shock S/P VDRF (now extubated) due to colitis and pancreatitis without blockage of biliary tract disease, now with pseudomembranous colitis S/P debridement of left foot ulcer history of DVT asthma Plan completed 10 days of zosyn completed PO Vancomycin today (10 day course) HIDA scan is negative will continue to monitor clinically off antibiotics since she is at risk for nosocomial infections
--- NOTE | 2018-08-17 14:21 | PN ---
DATE: 08/15/2018 SUBJECTIVE: This 58-year-old female was examined at the [facility] on the morning of 08/15/2018 and this case has been reviewed in detail with nurse Karen Qureshi registered nurse and Dr. Lyle Hamilton from Neurology. The patient is actively hallucinating. She remains weak, deconditioned and bedridden. She is unstable for ambulation and is continuing on p.r.n. parenteral Ativan along with oral Risperdal and oral Seroquel has been added to her regime. The difficulty is that she quite frequently refuses any oral medication. She has not yet completed an MRI of her brain, because of agitation episodes. She is being monitored closely by the nursing staff with fall precautions. PHYSICAL EXAMINATION: VITAL SIGNS: Temperature was 97.4, respirations 18, pulse 103 and blood pressure 132/70 with a pulse ox of 97% on room air. Physical exam remains unchanged. LABORATORY DATA: Blood sugar was 72. IMPRESSION: A 58-year-old female with acute psychosis, comorbidities of marked deconditioning, having been admitted with septic shock, respiratory failure that required intubation, now resolved, anemia of chronic disease and now with skin sores secondary to bedridden status. PLAN: The plan at present is to continue Ativan, D5W at 40 mL/hour, subcutaneous heparin, skin care with ointments and wound dressings as outlined, Risperdal, Seroquel and thiamine. She continues to be followed by Dr. Love from Psychiatry as well. My goal is to get this patient stabilized for physical therapy for ambulation and then Social Service will discuss disposition with family members. All of the above was reviewed with nursing. All questions were answered. Kena Lazo MD ARIANNA
--- NOTE | 2018-08-17 15:05 | PN ---
DATE: 08/17/2018 SUBJECTIVE: This case was reviewed with nursing. The patient appears to be regressing. She appears to be delusional at times and agitated. She is alert and oriented towards person, but not place or time. She responding to auditory and visual hallucinations, seeing people who are not in the room. I have presently increased her Risperdal from 1 mg twice a day to 2 mg twice a day. Dewayne Love MD/ PhD
--- NOTE | 2018-08-17 17:36 | PN ---
DATE: 08/16/2018 SUBJECTIVE: This 58-year-old female was examined at her bedside on the morning of 08/16/2018 and the case was discussed in detail with nurse Maday Sales registered nurse. The patient remains confused, agitated and is cooperating with nursing staff, who have her on fall precautions. PHYSICAL EXAMINATION: VITAL SIGNS: Temperature 97.4, respirations 18, pulse 103 and blood pressure 132/70, pulse ox 100% room air. Physical exam is unchanged. IMPRESSION: This is a 58-year-old female with metabolic encephalopathy and acute psychosis, marked deconditioning and admission for septic shock and respiratory failure. PLAN: Plan is to stabilize this patient for MRI of the brain. She will continue on parenteral Ativan IV D5W, subcutaneous heparin, oral, Risperdal, oral Seroquel, thiamine and wound care. Ultimate plan is for physical therapy and home with family with 24 hours supervision. Overall prognosis appears poor. The patient will be closely monitored by myself, Psychiatry and Neurology as well as Surgery. Kena Lazo MD
--- NOTE | 2018-08-17 17:45 | PN ---
DATE: 08/17/2018 SUBJECTIVE: This 57-year-old female was examined at bedside on the morning of 08/17/2018 and case was reviewed in detail with nurse, Maday Sales registered nurse. The patient is being readied for MRI of her brain. She was given IV Ativan confectionery maker to MRI and at present is actively hallucinating. There have been no reports of fever, chills, chest pain or shortness of breath and she occasionally does refuse oral medication. PHYSICAL EXAMINATION: VITAL SIGNS: Temperature is 97.4, respirations 18, pulse 89 and blood pressure 96/54 with pulse ox 100% room air. Physical exam is unchanged. Sacral wound was examined with nursing care attendant Terry. The sacrum shows a clean and dry dime sized sacral ulcer.. LABORATORY DATA: Random blood sugar was 87. IMPRESSION: This is a 58-year-old female with metabolic encephalopathy, paranoid psychosis, anemia of chronic disease and now with sacral sores and deconditioning. PLAN: My plan is to continue thiamine, Silvadene and Santyl to wounds, oral Seroquel, oral Risperdal, IV Ativan p.r.n. agitation and D5W at 40 ml/hour. She remains on subcutaneous heparin, fall precautions and will be outlined to receive Neurontin 100 mg p.o. t.i.d. Nursing staff will continue fall precautions and are ready to institute a one to one bedside sitter should this be necessary. The patient will need neurological and psychiatric followup today as well. Kena Lazo MD ARIANNA
[2018-08-18 07:41] LABS: HEMOGLOBIN 10.7 g/dL (12.0-16.0); MEAN CELL VOLUME 96.8 fl (80.0-105.0); MEAN CORPUSCULAR HEMOGLOBIN 31.6 pg (25.0-35.0); MEAN CORPUSCULAR HGB CONC 32.6 g/dl (31.0-37.0); MEAN PLATELET VOLUME 9.6 fl (7.0-11.0); RBC 3.39 10^6/uL (3.5-6.1); WHITE BLOOD COUNT 15.2 10^3/uL (4.5-11.0)
[2018-08-18 07:59] LABS: BLOOD UREA NITROGEN 13 mg/dL (7-21); CALCIUM 9.6 mg/dL (8.4-10.5); GFR NON-AFRICAN AMERICAN > 60
--- NOTE | 2018-08-18 08:41 | OP ---
PROCEDURE DATE: 08/11/2018 PATIENT'S AGE: 58. PATIENT'S SEX: Female. PREOPERATIVE DIAGNOSIS: Left nonhealing ulceration secondary to infected verruca plantaris. POSTOPERATIVE DIAGNOSIS: Left nonhealing ulceration secondary to infected verruca plantaris. PROCEDURE: Left heel wound debridement and biopsy. SURGEON: Cuca Ramírez DPM MACHINE HAMPER MAKER: Vane Valentin, PGY-1 TYPE OF ANESTHESIA: IV sedation with local. INDICATION: The patient is a 58-year-old female with the above diagnosis. The patient has exhausted all conservative treatments at this time and now requires surgical intervention. The patient signed the consent after careful explanation of risks, benefits, complications, and alternatives for the surgical procedure. No guarantees were given nor implied. N.p.o. status was confirmed prior to taking the patient to the operating room. PREPARATION: The patient was brought to the operating room and placed on the operating room table in the supine position. Time-out was performed for identification of the correct patient and procedure. After induction of IV sedation, a 10 mL of a 1:1 mix of 0.5% Marcaine plain and 1% lidocaine plain was given in a local block fashion to the patient. The patient was then prepped and draped in the usual sterile manner and the procedure began. DESCRIPTION OF PROCEDURE: Left heel wound debridement and biopsy. Attention was directed to the plantar aspect of the left heel where a nonhealing wound was appreciated. Next, the base of the incision was curetted to remove any nonviable tissue. Once the wound bed revealed a healthy granular base, two small punch biopsies were taken, one biopsy was taken from the central aspect of the wound bed and the second biopsy was taken from the border of the lesion which included a clean margin. Once the biopsies were performed, the wound bed was cauterized with the Bovie. Next, the wound bed was cleaned and irrigated with normal saline. The area was then dried and Xeroform was applied to the wound bed and dressed with DSD and an JACKIE bandage. POSTOPERATIVE CONDITION: The patient tolerated the anesthesia and procedure well and was escorted to the recovery room with all vital signs stable and neurovascular status intact to the left foot. The patient may remain weightbearing as tolerated to the left lower extremity. Podiatry will continue to follow the patient while at home. Upon discharge, the patient will follow up with Dr. Ramírez within one week. VANE VALENTIN Cuca Ramírez DPM [facility] # [phone]
[2018-08-18] MEDS: Nystatin 100,000 Units/gm Topical Pow(15 gm) TOP SCH ×2 (10:26→17:34)
[2018-08-18] MEDS: Silver Sulfadiazine 1% Cream (25 gm) TP SCH ×2 (10:27→17:34)
--- NOTE | 2018-08-18 10:33 | CP.PCM.PCO ---
Physician Communication Note - Physician Communication Note Physician Communication Note: paranoid. mx is mostly need to be continued with psych.
--- NOTE | 2018-08-18 14:51 | CP.PCM.PN ---
Subjective - Date & Time of Evaluation Date of Evaluation: 08/18/18 Time of Evaluation: 10:05 - Subjective Subjective: Comfortable, no fevers. Objective - Vital Signs/Intake and Output Vital Signs (last 24 hours): Temp Pulse Resp BP Pulse Ox 97.4 F L 89 18 96/54 L 100 08/17/18 06:00 08/17/18 06:00 08/17/18 06:00 08/17/18 06:00 08/17/18 06:00 Intake and Output: 08/17/18 08/17/18 06:59 18:59 Intake Total 300 Balance 300 - Medications Medications: Current Medications Acetaminophen (Tylenol 325mg Tab) 650 mg PO Q4H PRN PRN Reason: Pain, Mild (1-3) Last Admin: 08/14/18 11:11 Dose: 650 mg Collagenase (Santyl) 0 gm TOP DAILY [facility] Last Admin: 08/15/18 09:48 Dose: Not Given Gabapentin (Neurontin) 100 mg PO TID [facility] Last Admin: 08/17/18 13:17 Dose: Not Given Heparin Sodium (Porcine) (Heparin) 5,000 units SC Q12 MELY; Protocol Last Admin: 08/17/18 09:20 Dose: 5,000 units Dextrose (Dextrose 5% In Water 1000 Ml) 1,000 mls @ 40 mls/hr IV .Q24H MELY Last Admin: 08/17/18 13:16 Dose: Not Given Lorazepam (Ativan) 1 mg IVP Q6H PRN; Protocol PRN Reason: Anxiety Last Admin: 08/17/18 09:20 Dose: 1 mg Nystatin (Nystop Topical Powder) 0 gm TOP BID [facility] Last Admin: 08/17/18 09:23 Dose: 1 u Quetiapine Fumarate (Seroquel) 25 mg PO HS MELY; Protocol Last Admin: 08/16/18 21:58 Dose: 25 mg Risperidone (Risperdal Tab) 2 mg PO BID MELY; Protocol Silver Sulfadiazine (Silvadene 1% 25 Gm) 1 gm TP BID [facility] Last Admin: 08/17/18 09:23 Dose: 1 gm Thiamine HCl (Vitamin B1 Tab) 100 mg PO DAILY [facility]ELY Last Admin: 08/17/18 09:22 Dose: 100 mg - Labs Labs: 08/13/18 14:45 08/13/18 14:45 PT 11.3 SECONDS (9.4-12.5) 07/20/18 16:01 INR 0.99 07/20/18 16:01 APTT 27.8 Seconds (25.1-36.5) 08/02/18 05:40 - Constitutional Appears: Chronically Ill - Head Exam Head Exam: NORMAL INSPECTION - Respiratory Exam Respiratory Exam: Decreased Breath Sounds - Cardiovascular Exam Cardiovascular Exam: +S1, +S2 - GI/Abdominal Exam GI & Abdominal Exam: Soft. absent: Tenderness Assessment and Plan - Assessment and Plan (Free Text) Plan: Assessment S/P Septic shock S/P VDRF (now extubated) due to colitis and pancreatitis without blockage of biliary tract disease, now with pseudomembranous colitis S/P debridement of left foot ulcer history of DVT asthma Plan completed 10 days of zosyn completed PO Vancomycin today (10 day course) HIDA scan is negative will continue to monitor clinically off antibiotics since she is at risk for hospital-acquired infections
--- NOTE | 2018-08-18 18:20 | PN ---
DATE: 08/18/2018 NEUROLOGY FOLLOWUP CHIEF COMPLIANT: Followup for altered mental status. SUBJECTIVE: The patient is seeing people out, occasionally hallucinating, though no focal weakness is seen in examination. MRI of the brain is pending due to the patient not able to go to the machine and due to be not cooperative. She is on Seroquel 25 mg p.o. at bedtime and in addition has been placed by psychiatrist Risperdal of 2 mg p.o. b.i.d. seen by Dr. Loev. PAST MEDICAL HISTORY: She has left lower extremity DVT, PE on Coumadin, ETOH abuse, history of alcohol-induced neuropathy, deconditioned. REVIEW OF SYSTEM: A 14-point review of systems is negative except per the HPI. ALLERGIES: NO KNOWN DRUG ALLERGIES. MEDICATIONS: Reviewed by nurse's reconciliation sheet. FAMILY HISTORY: Noncontributory. LABORATORY DATA: Sodium is 139, potassium 2.9, chloride of 101, carbon dioxide of 31, BUN of 13, creatinine 0.9, random glucose of 90. PHYSICAL EXAMINATION: GENERAL: The patient is seen up in bed and in no acute distress. VITAL SIGNS: Temperature of 97.6, pulse 83, blood pressure 102/54, respirations 18, oxygen saturation 99% on room air. HEENT: Atraumatic and normocephalic. PERRLA. Extraocular muscles are intact. NECK: Supple. No JVD. No adenopathy noted. LUNGS: Clear to auscultation. No adventitious sounds. HEART: S1 and S2. Normal rate and rhythm. No murmurs, rubs, or gallops. ABDOMEN: Soft, nontender, nondistended. Bowel sounds are present. EXTREMITIES: No clubbing. No cyanosis. Peripheral pulses are 2+ felt bilaterally. NEUROLOGICAL: The patient is only oriented to person, not place, moth or year. Recall after five minutes is 0/3, mildly hallucinating. Slow thought process. Recall after 5 minutes 0 to 3. Poor attention span. Disorganized thinking. Speech is hypophonic. Cranial nerves II through XII are intact. Motor exam; actually both intrinsic muscles of her hand muscles of her feet. Sensory exam; Decreased light touch and pinprick up to the calves bilaterally. Decreased vibration at the toes. Moves all extremities equally. Toes downgoing bilaterally. DTRs are 2+ throughout and 1 at both knees and ankles. Coordination: [id number] is intact. No dysmetria noted. Gait is deferred for now. IMPRESSION: She has underlying delusions, underlying hyperactive delirium with underlying cognitive impairment/organic brain syndrome with episodes of metabolic derangement. Also her speech is mild neuropathy on examination. RECOMMENDATIONS: At this time; 1. Keep her blood pressure within 140 to 180. 2. Monitor her electrolytes and correct accordingly. 3. Delirium precautions. 4. Keep her blood pressures systolic 130 to 140 and diastolic 70 to 80s. 5. Thiamine 100 mg p.o. daily for normal activity. 6. Continue Seroquel 25 mg p.o. at bedtime, 2 mg p.o. b.i.d. for hallucinations and behavioral disturbance and continue to monitor as per psychiatry at this time. Thank you for this followup. Lyle Hamilton MD
[2018-08-19 07:03] LABS: BASO # 0.03 K/mm3 (0.0-2.0); BASO % 0.2 % (0.0-3.0); EOS # 0.3 (0.0-0.7); EOS % 1.9 % (1.5-5.0); GRAN # 10.26 (1.4-6.5); GRAN % 70.4 % (50.0-68.0); HEMOGLOBIN 11.6 g/dL (12.0-16.0); LYMPH # 2.4 (1.2-3.4); LYMPH % 16.2 % (22.0-35.0); MEAN CORPUSCULAR HEMOGLOBIN 31.6 pg (25.0-35.0); MEAN CORPUSCULAR HGB CONC 32.6 g/dl (31.0-37.0); MEAN PLATELET VOLUME 10.1 fl (7.0-11.0); MONO # 1.7 (0.1-0.6); MONO % 11.3 % (1.0-6.0); RBC 3.67 10^6/uL (3.5-6.1); RED CELL DISTRIBUTION WIDTH 15.1 % (11.5-14.5); WHITE BLOOD COUNT 14.6 10^3/uL (4.5-11.0)
[2018-08-19 07:22] LABS: BLOOD UREA NITROGEN 13 mg/dL (7-21); CALCIUM 9.9 mg/dL (8.4-10.5); GFR NON-AFRICAN AMERICAN > 60
--- NOTE | 2018-08-19 09:03 | CP.PCM.PN ---
<Vane Zapata - Last Filed: 08/19/18 11:20> Subjective - Date & Time of Evaluation Date of Evaluation: 08/19/18 Time of Evaluation: 09:03 - Subjective Subjective: Podiatry Progress Note: Dr. Schroeder 58F patient seen and evaluated POD#8 L heel biopsy with debridement. Patient resting comfortably and in NAD. Unable to elicit history at this time secondary to patient mental status. Per nursing notes, no acute events overnight. Objective - Vital Signs/Intake and Output Vital Signs (last 24 hours): Temp Pulse Resp BP Pulse Ox 97.9 F 89 18 104/82 95 08/19/18 06:00 08/19/18 06:00 08/19/18 06:00 08/19/18 06:00 08/19/18 06:00 Intake and Output: 08/19/18 08/19/18 06:59 18:59 Intake Total 0 Balance 0 - Medications Medications: Current Medications Acetaminophen (Tylenol 325mg Tab) 650 mg PO Q4H PRN PRN Reason: Pain, Mild (1-3) Last Admin: 08/18/18 10:06 Dose: 650 mg Collagenase (Santyl) 0 gm TOP DAILY [facility] Last Admin: 08/15/18 09:48 Dose: Not Given Gabapentin (Neurontin) 100 mg PO TID [facility] Last Admin: 08/18/18 17:37 Dose: 100 mg Heparin Sodium (Porcine) (Heparin) 5,000 units SC Q12 [facility]; Protocol Last Admin: 08/18/18 23:04 Dose: 5,000 units Dextrose (Dextrose 5% In Water 1000 Ml) 1,000 mls @ 40 mls/hr IV .Q24H [facility] Last Admin: 08/19/18 06:57 Dose: 40 mls/hr Lorazepam (Ativan) 1 mg IVP Q6H PRN; Protocol PRN Reason: Anxiety Last Admin: 08/18/18 05:59 Dose: 1 mg Nystatin (Nystop Topical Powder) 0 gm TOP BID [facility] Last Admin: 08/18/18 17:34 Dose: 1 u Quetiapine Fumarate (Seroquel) 25 mg PO HS [facility]; Protocol Last Admin: 08/18/18 23:06 Dose: 25 mg Risperidone (Risperdal Tab) 2 mg PO BID [facility]; Protocol Last Admin: 12/27/18 17:37 Dose: 2 mg Silver Sulfadiazine (Silvadene 1% 25 Gm) 1 gm TP BID [facility] Last Admin: 08/18/18 17:34 Dose: 1 gm Thiamine HCl (Vitamin B1 Tab) 100 mg PO DAILY [facility] Last Admin: 08/18/18 10:06 Dose: 100 mg - Labs Labs: 08/19/18 06:30 08/19/18 06:30 PT 11.3 SECONDS (9.4-12.5) 07/20/18 16:01 INR 0.99 07/20/18 16:01 APTT 27.8 Seconds (25.1-36.5) 08/02/18 05:40 - Constitutional Appears: Non-toxic, No Acute Distress - Extremities Exam Additional comments: B/L LE focused exam: Vasc: DP/PT 2/4 b/l. Cap refill < 3 sec to all digits, TG Warm to cool from proximal to distal b/l, No edema noted b/l. Ortho: No pain upon palpation to left foot medial heel wound, cavus foot type bilaterally Neuro: Gross and protective sensation intact. Derm: L Biopsy site 100% granular base, no purulence, no malodor, no drainage, no bleeding, no erythema, no probe to bone. No clinical signs of active infection. Additional ulceration appreciated to the lateral aspect of the R foot with fibrogranular base, no purulence, no drainage, no clinical signs of infection. - Neurological Exam Neurological Exam: Awake - Psychiatric Exam Psychiatric exam: Flat Affect Assessment and Plan - Assessment and Plan (Free Text) Assessment: 58F POD#8 L heel biopsy with debridement. Plan: Patient seen and evaluated at bedside with Dr. Schroeder Afebrile, WBC 14.6 Pathology report L heel mass; infarcted verruca Intra-op pathology report; no malignancy LE RADHA exam; relatively normal RADHA and PVR examination at rest, possible mild b/l tibial disease LE MRI taken; limited postoperative changes seen at the posterior and inferior heel soft tissues without evident of OM Left foot 3 views x-ray: subcutaneous calcified mass, CT w/o contrast recommended. LE venous duplex (07/23): No evidence of DVT Local wound care: B/L foot wounds dressed with optifoam Stable for discharge from podiatry point of view <Zac Schroeder - Last Filed: 08/19/18 13:33> Objective - Vital Signs/Intake and Output Vital Signs (last 24 hours): Temp Pulse Resp BP Pulse Ox 97.9 F 89 18 104/82 95 08/19/18 06:00 08/19/18 06:00 08/19/18 06:00 08/19/18 06:00 08/19/18 06:00 Intake and Output: 08/19/18 08/19/18 06:59 18:59 Intake Total 0 Balance 0 - Medications Medications: Current Medications Acetaminophen (Tylenol 325mg Tab) 650 mg PO Q4H PRN PRN Reason: Pain, Mild (1-3) Last Admin: 08/18/18 10:06 Dose: 650 mg Collagenase (Santyl) 0 gm TOP DAILY [facility] Last Admin: 08/15/18 09:48 Dose: Not Given Gabapentin (Neurontin) 100 mg PO TID [facility] Last Admin: 08/19/18 10:16 Dose: 100 mg Heparin Sodium (Porcine) (Heparin) 5,000 units SC Q12 [facility]; Protocol Last Admin: 08/19/18 10:38 Dose: 5,000 units Dextrose (Dextrose 5% In Water 1000 Ml) 1,000 mls @ 40 mls/hr IV .Q24H [facility] Last Admin: 08/19/18 11:38 Dose: 40 mls/hr Potassium Chloride (Potassium Chloride 20 Meq/100 Ml) 20 meq in 100 mls @ 50 mls/hr IVPB Q2H [facility] Stop: 08/19/18 14:29 Cefepime HCl (Maxipime 1gm) 1 gm in 100 mls @ 100 mls/hr IVPB Q12 [facility]; Protocol Vancomycin HCl (Vancomycin 1gm) 1 gm in 250 mls @ 167 mls/hr IVPB Q12H [facility]; Protocol Lorazepam (Ativan) 1 mg IVP Q6H PRN; Protocol PRN Reason: Anxiety Last Admin: 08/19/18 10:15 Dose: 1 mg Nystatin (Nystop Topical Powder) 0 gm TOP BID [facility] Last Admin: 08/19/18 11:39 Dose: 1 u Quetiapine Fumarate (Seroquel) 25 mg PO HS [facility]; Protocol Last Admin: 08/18/18 23:06 Dose: 25 mg Risperidone (Risperdal Tab) 2 mg PO BID [facility]; Protocol Last Admin: 08/19/18 10:16 Dose: 2 mg Silver Sulfadiazine (Silvadene 1% 25 Gm) 1 gm TP BID [facility] Last Admin: 08/19/18 10:16 Dose: 1 gm Thiamine HCl (Vitamin B1 Tab) 100 mg PO DAILY [facility] Last Admin: 08/19/18 10:19 Dose: 100 mg - Labs Labs: 08/19/18 06:30 08/19/18 06:30 PT 11.3 SECONDS (9.4-12.5) 07/20/18 16:01 INR 0.99 07/20/18 16:01 APTT 27.8 Seconds (25.1-36.5) 08/02/18 05:40 Attending/Attestation - Attestation I have personally seen and examined this patient.: Yes I have fully participated in the care of the patient.: Yes I have reviewed all pertinent clinical information, including history, physical exam and plan: Yes
--- NOTE | 2018-08-19 10:15 | RAD ---
Date of service: 08/19/2018 HISTORY: rule out pneumonia COMPARISON: No prior. FINDINGS: LUNGS: No active pulmonary disease. PLEURA: No significant pleural effusion identified, no pneumothorax apparent. CARDIOVASCULAR: No aortic atherosclerotic calcification present. Normal cardiac size. No pulmonary vascular congestion. OSSEOUS STRUCTURES: No significant abnormalities. VISUALIZED UPPER ABDOMEN: Normal. OTHER FINDINGS: None. IMPRESSION: No active disease.
[2018-08-19] MEDS: Silver Sulfadiazine 1% Cream (25 gm) TP SCH ×2 (10:16→17:22)
[2018-08-19] MEDS: Nystatin 100,000 Units/gm Topical Pow(15 gm) TOP SCH ×2 (11:39→17:20)
--- NOTE | 2018-08-19 12:54 | PN ---
DATE: 08/18/2018 SUBJECTIVE: This 58-year-old female was examined at her bedside and this case was reviewed in detail with nurse, Gamal Silva. The patient remains paranoid with vivid hallucinations and delusional psychosis. I have reviewed this case in detail with Dr. Lyle Hamilton from Neurology and Dr. Ashkan Love from Psychiatry. She remains too unstable to complete MRI and is being treated with oral Risperdal and Seroquel as well as IV Ativan with minimal improvement. According to the nursing staff, she has had a poor p.o. intake for the past several days, however, in the past 24 hours, this has improved. She does have an aide that assists her with her meals and she is wearing her heel cradles to prevent further skin breakdown. I did examine her sacral wound. It is clean and dry and there are no obvious sources of infection despite her current laboratory showing a white blood cell count of 15,200. PHYSICAL EXAMINATION: VITAL SIGNS: Her temperature was 97.6, respirations 18, pulse 91 and blood pressure 102/54. Pulse ox was 94% on room air. HEENT: Head: Normocephalic, atraumatic. Eyes: No icterus. NECK: Supple. HEART: S1, S2. LUNGS: Clear. ABDOMEN: Soft. EXTREMITIES: No edema. SKIN: Without rash. NEUROLOGICAL: Moves all 4 extremities. PSYCHOLOGICAL: Acute paranoid psychosis. LABORATORY DATA: White count 15,200, hemoglobin 10.7, hematocrit 32.8, platelets 185,000. Sodium 139, K 2.9, chloride 101, bicarb 31, BUN 13, creatinine 0.8, random blood sugar 90, calcium 9.6. IMPRESSION: A 58-year-old female with acute paranoid psychosis, marked deconditioning acute hypokalemia, probably secondary to poor p.o. intake with nursing staff reporting no nausea, vomiting or diarrhea at present, also with history of chronic peripheral neuropathy, stable sacral sores, marked deconditioning and admission for septic shock and rhabdomyolysis. PLAN: At present, is to continue Ativan 1 mg IV every 6 hours p.r.n. agitation. She continues on D5W at 40 mL per hour because of previous hypoglycemia. She is receiving heparin 5000 units subcu every 12 hours given bedridden status. She is ordered to receive Neurontin 100 mg p.o. 3 times daily. She is receiving potassium chloride parenterally 20 mEq x2 doses, Risperdal 2 mg p.o. twice daily, Seroquel 25 mg p.o. at bedtime, Silvadene to her sacral wounds with dry sterile dressings twice daily and thiamine 100 mg p.o. daily. Based on clinical progress, additional workup will be entertained. She is awaiting ID evaluation regarding spontaneous leukocytosis in the absence of obvious infection and is ordered to have blood and urine cultures, a chest x-ray with decision of antibiotics to be decided by Infectious Disease. Overall, prognosis remains poor and this case was discussed with nursing and social service in detail. Kena Lazo MD MTDD
--- NOTE | 2018-08-19 13:03 | PN ---
DATE: 08/19/2018 SUBJECTIVE: This 58-year-old female was examined at her bedside where she was resting quietly. The case was reviewed with nursing, Gamal Gomes, who reports the patient ate approximately 50% of her breakfast this morning with assistance and has been calmer with the adjustment of her Risperdal to 2 mg twice daily and Seroquel 25 mg at bedtime. PHYSICAL EXAMINATION: VITAL SIGNS: Temperature was 97.9, respirations 18, pulse 89 and blood pressure 104/82 with a pulse ox of 95% room air. Physical exam is unchanged. LABORATORY DATA: White count is 14,600, previously 15,200 yesterday with a hemoglobin of 11.6, hematocrit of 35.6, platelets of 494,000. Sodium of 139, K 3.5, chloride 103, bicarb 29, BUN 13, creatinine 0.8 and random blood sugar of 83. Calcium is 9.9. IMPRESSION: A 58-year-old female with leukocytosis, rule out nosocomial infection, hypokalemia, rule out secondary to poor nutritional intake and anemia of chronic disease, peripheral neuropathy, acute psychosis and sacral source. PLAN: To continue thiamine, Silvadene to sacral sore, Seroquel, Risperdal, IV potassium riders, Neurontin subcu, heparin and D5W IV fluids with p.r.n. Ativan for agitation. She will continue to receive local wound care, air mattress. She is scheduled for repeat CBC and potassium level in the a.m. Blood cultures are pending. Chest x-ray was reviewed from this morning. It showed no active pulmonary disease, no infiltrate, no effusions and no evidence of congestive heart failure. The patient will be encouraged to be out of bed to chair as able with physical therapy to be started once her mental status has improved. She continues to wear Multi Podus boots, remains on high fall risk protocol. She is wearing sequential antiembolism stockings and is ordered to have nutritional supplements for nutritional support as well. Based on her clinical progress as discussed with Social Service, Remy Beltran, it is unclear when she will be ready for discharge to the care of her family who has been apprised of all of the issues as listed above. Kena Lazo MD [facility] # [id number] ARIANNA
--- NOTE | 2018-08-19 13:22 | CP.PCM.PN ---
Subjective - Date & Time of Evaluation Date of Evaluation: 08/19/18 Time of Evaluation: 09:50 - Subjective Subjective: Still having hallucinations, does not follow commands, at times agitated, no fevers overnight. Objective - Vital Signs/Intake and Output Vital Signs (last 24 hours): Temp Pulse Resp BP Pulse Ox 97.6 F 83 18 119/97 H 98 08/18/18 06:00 08/18/18 14:00 08/18/18 14:00 08/18/18 14:00 08/18/18 14:00 Intake and Output: 08/18/18 08/18/18 06:59 18:59 Intake Total 480 Output Total 1 Balance 479 - Medications Medications: Current Medications Acetaminophen (Tylenol 325mg Tab) 650 mg PO Q4H PRN PRN Reason: Pain, Mild (1-3) Last Admin: 08/18/18 10:06 Dose: 650 mg Collagenase (Santyl) 0 gm TOP DAILY [facility] Last Admin: 08/15/18 09:48 Dose: Not Given Gabapentin (Neurontin) 100 mg PO TID [facility] Last Admin: 08/18/18 14:30 Dose: 100 mg Heparin Sodium (Porcine) (Heparin) 5,000 units SC Q12 [facility]; Protocol Last Admin: 08/18/18 10:04 Dose: 5,000 units Dextrose (Dextrose 5% In Water 1000 Ml) 1,000 mls @ 40 mls/hr IV .Q24H [facility] Last Admin: 08/18/18 10:26 Dose: 40 mls/hr Lorazepam (Ativan) 1 mg IVP Q6H PRN; Protocol PRN Reason: Anxiety Last Admin: 08/18/18 05:59 Dose: 1 mg Nystatin (Nystop Topical Powder) 0 gm TOP BID [facility] Last Admin: 08/18/18 10:26 Dose: 1 u Quetiapine Fumarate (Seroquel) 25 mg PO HS [facility]; Protocol Last Admin: 08/17/18 22:39 Dose: 25 mg Risperidone (Risperdal Tab) 2 mg PO BID [facility]; Protocol Last Admin: 08/18/18 10:05 Dose: 2 mg Silver Sulfadiazine (Silvadene 1% 25 Gm) 1 gm TP BID [facility] Last Admin: 08/18/18 10:27 Dose: 1 gm Thiamine HCl (Vitamin B1 Tab) 100 mg PO DAILY [facility] Last Admin: 08/18/18 10:06 Dose: 100 mg - Labs Labs: 08/18/18 07:15 08/18/18 07:15 PT 11.3 SECONDS (9.4-12.5) 07/20/18 16:01 INR 0.99 07/20/18 16:01 APTT 27.8 Seconds (25.1-36.5) 08/02/18 05:40 - Constitutional Appears: Chronically Ill - Head Exam Head Exam: NORMAL INSPECTION - Respiratory Exam Respiratory Exam: Decreased Breath Sounds - Cardiovascular Exam Cardiovascular Exam: +S1, +S2 - GI/Abdominal Exam GI & Abdominal Exam: Soft. absent: Tenderness Assessment and Plan - Assessment and Plan (Free Text) Plan: Assessment new onset leukocytosis, R/O sepsis delirium S/P Septic shock S/P VDRF (now extubated) due to colitis and pancreatitis without blockage of biliary tract disease, now with pseudomembranous colitis S/P debridement of left foot ulcer related to peripheral arterial disease history of DVT asthma Plan will repeat septic work up and start Vancomycin and Cefepime will monitor clinically discussed with Dr. Lazo overall prognosis is poor
--- NOTE | 2018-08-19 14:21 | PN ---
DATE: 08/19/2018 SUBJECTIVE: Case reviewed with nursing. I am presently unable to access the patient's chart due to one of an ongoing series of computer freezes. The patient remains somewhat enigmatic in the causation of her rapid decompensation in both her cognitive and behavioral state. She has had a period of lucidity. Attempts are being made to have the patient more mobile. She remains sedate a good portion of the time. The possibility of an infectious etiology has not been firmly ruled out. Dewayne Love MD/ PhD
[2018-08-19] MEDS: Vancomycin 1gm in NS 250ml 1 GM/250 ML BAG IVPB SCH (17:22)
[2018-08-19] MEDS: Cefepime 1gm in NS 100ml 1 GM/100 ML BAG IVPB SCH (22:36)
[2018-08-20] MEDS: Vancomycin 1gm in NS 250ml 1 GM/250 ML BAG IVPB SCH ×2 (01:42→13:43)
[2018-08-20 08:17] LABS: BASO # 0.03 K/mm3 (0.0-2.0); BASO % 0.2 % (0.0-3.0); EOS # 0.2 (0.0-0.7); EOS % 1.6 % (1.5-5.0); GRAN # 9.2 (1.4-6.5); GRAN % 67.7 % (50.0-68.0); HEMOGLOBIN 10.4 g/dL (12.0-16.0); LYMPH # 2.3 (1.2-3.4); MEAN CELL VOLUME 97.3 fl (80.0-105.0); MEAN CORPUSCULAR HEMOGLOBIN 31.5 pg (25.0-35.0); MEAN CORPUSCULAR HGB CONC 32.4 g/dl (31.0-37.0); MEAN PLATELET VOLUME 9.9 fl (7.0-11.0); MONO # 1.8 (0.1-0.6); MONO % 13.5 % (1.0-6.0); RBC 3.3 10^6/uL (3.5-6.1); RED CELL DISTRIBUTION WIDTH 15.2 % (11.5-14.5); WHITE BLOOD COUNT 13.6 10^3/uL (4.5-11.0)
[2018-08-20] MEDS: Nystatin 100,000 Units/gm Topical Pow(15 gm) TOP SCH ×2 (09:14→17:12)
[2018-08-20] MEDS: Cefepime 1gm in NS 100ml 1 GM/100 ML BAG IVPB SCH ×2 (09:14→23:00)
--- NOTE | 2018-08-20 12:54 | PN ---
DATE: 08/20/2018 SUBJECTIVE: The patient is in bed, in no acute distress, nontoxic. OBJECTIVE: VITAL SIGNS: Temperature is 98, blood pressure is 100/60, respiratory rate of 18, heart rate of 119. HEENT: Unremarkable. NECK: Supple. LUNGS: Have decreased breath sounds. HEART: Normal S1, S2. ABDOMEN: Soft, nontender. LABORATORY EXAMINATION: Reveals a white count of 13,600, hemoglobin of 10, BUN of 13, creatinine of 0.8. Procalcitonin is 0.09. Urinalysis is noted and HIV is negative. Microbiology reveals the blood cultures are negative. ASSESSMENT AND PLAN: A 58-year-old female with history of delirium, status post septic shock and vent-dependent respiratory failure, now extubated pancreatitis, colitis and currently was off of antibiotics and new onset of leukocytosis with 13,600 and with repeat blood cultures negative and on vancomycin and cefepime day #2. We will follow with you. Workup in progress. Ashkan Bah MD
[2018-08-21] MEDS: Vancomycin 1gm in NS 250ml 1 GM/250 ML BAG IVPB SCH ×2 (01:29→13:15)
[2018-08-21 07:50] LABS: HEMOGLOBIN 10.9 g/dL (12.0-16.0); MEAN CELL VOLUME 97.1 fl (80.0-105.0); MEAN CORPUSCULAR HEMOGLOBIN 31.3 pg (25.0-35.0); MEAN CORPUSCULAR HGB CONC 32.2 g/dl (31.0-37.0); MEAN PLATELET VOLUME 9.8 fl (7.0-11.0); RBC 3.48 10^6/uL (3.5-6.1)
[2018-08-21] MEDS: Nystatin 100,000 Units/gm Topical Pow(15 gm) TOP SCH ×2 (10:39→18:39)
[2018-08-21] MEDS: Cefepime 1gm in NS 100ml 1 GM/100 ML BAG IVPB SCH (10:39)
[2018-08-21 15:59] LABS: URINE BILIRUBIN NEGATIVE (NEGATIVE); URINE BLOOD NEGATIVE (NEGATIVE); URINE GLUCOSE (UA) NEGATIVE (NEGATIVE); URINE LEUKOCYTE ESTERASE SMALL Leu/uL (NEGATIVE); URINE PROTEIN NEGATIVE mg/dL (<30 mg/dL); URINE UROBILINOGEN 0.2 E.U./dL (<1 E.U./dL)
[2018-08-21 16:05] LABS: URINE APPEARANCE CLEAR (CLEAR); URINE COLOR YELLOW (YELLOW)
[2018-08-21 16:27] LABS: URINE BACTERIA FEW /hpf; URINE EPITHELIAL CELLS MANY /hpf (0-5); URINE RBC 0 - 2 /hpf (0-2)
[2018-08-21 16:28] LABS: URINE HYALINE CAST 0 - 2 /hpf
--- NOTE | 2018-08-21 18:10 | PN ---
DATE: 08/21/2018 SUBJECTIVE: The patient was seen earlier this morning. She is awake and alert, doing well. PHYSICAL EXAMINATION: VITAL SIGNS: Temperature is 97, blood pressure is 111/60, respiratory rate of 18. HEENT: Unremarkable. NECK: Supple. LUNGS: Decreased breath sounds. HEART: Normal S1 and S2. ABDOMEN: Soft and nontender. LABORATORY DATA: Laboratory examination reveals the patient's white count of 13,000 and hemoglobin of 10. Chemistries are noted. Serology is noted. Urinalysis is noted. Microbiology reveals blood cultures are negative. Review of orders reveals the patient to be on vancomycin and cefepime. Blood cultures are negative and the patient's white count is holding at 13,000, procalcitonin is 0.05 and 0.09. Negative urinalysis. Chest x-ray from 08/19/2018 is reported to be negative. ASSESSMENT AND PLAN: This is a 57-year-old female history of delirium; status post septic shock; and vent-dependent respiratory failure, extubated; pancreatitis; colitis; new onset of leukocytosis with repeat cultures negative, today is day #3 of vanco, cefepime and negative procalcitonin, negative chest x-ray, negative urinalysis. We will discontinue the antibiotics, follow the white blood cell count, and the patient is clinically doing well. If there is any diarrhea, will request a stool C. diff. We will discontinue the vancomycin and cefepime, follow the CBC. This morning's white count is down to 13,000. The patient has not had LFTs, we will order LFTs and a CBC for tomorrow. We will check the LFTs and a CBC and a white count in the a.m. We will discontinue the antibiotics. We will follow with you. Ashkan Bah MD
--- NOTE | 2018-08-22 03:44 | CP.PCM.PCO ---
Physician Communication Note - Physician Communication Note Physician Communication Note: Nursing Paged 08/22/18 [phone] Addendum Addendum: 08/22/18 03:42 Nursing paged to notify resident patient was mildly agitated. During chart review it was noted patient had assessment of psychosis Patient was seen climbing out of bed earlier at night; upon evaluation at bedside, patient is awake asking for cigarette and apears to be mildly agitated at this time. Hence will admin x1 Haldol 2mg PO; and will start patient on daily nicotine patch.
--- NOTE | 2018-08-22 07:27 | PCM.FALL ---
Post Fall Progress Note - Post Fall Fall Date: 08/22/18 Fall Time: 07:05 Description of Fall: This is a 57 year old female with PMH of asthma and DVT who was brought into the ED by [facility] for altered mental status who had an unwitnessed fall this morning. Per nursing staff, patient was not seen in bed and found to be on the floor next to the bed. Overnight, patient was agitated and given haldol as well as ativan. On evaluation, patient seems altered and is not alert or oriented which is her baseline per staff. She admits to hitting her head on the floor but denies LOC. She also admits to neck pain and lower back pain. Initial vitals were O2 sat of 97% on RA, HR 90 and BP of 139/90. Patient was agitated and moving throughout exam and accurate temperature and BP were difficult to obtain. - Post Fall Exam Vital Sign: Temp Pulse Resp BP Pulse Ox 97.3 F L 111 H 20 105/71 100 08/21/18 21:33 08/21/18 21:33 08/21/18 21:33 08/21/18 21:33 08/21/18 21:33 Skull Exam: Negative for: Scalp wound, Scalp hematoma, Scalp depression, Ridge in skull Eye Exam: Positive for: Pupils equal, Pupils reactive Ear Exam: Negative for: Bleeding Nose Exam: Negative for: Bleeding Skin Exam: Negative for: Lacerations Mouth Exam: Negative for: Tongue bitten Neck Exam: Positive for: Tenderness. Negative for: Weakness Spinal Exam: Positive for: Tenderness. Negative for: Weakness Chest Exam: Negative for: Difficulty breathing Abdomen Exam: Negative for: Tenderness Pelvic Exam: Negative for: Tenderness Arm Exam: Negative for: Deformity Leg Exam: Negative for: Deformity Impression/Plan: Plan: -1:1 sitter -CT head -cervical xray -thoracolumbar xray
[2018-08-22 07:53] LABS: HEMOGLOBIN 9.9 g/dL (12.0-16.0); MEAN CELL VOLUME 97.2 fl (80.0-105.0); MEAN CORPUSCULAR HEMOGLOBIN 31.1 pg (25.0-35.0); MEAN PLATELET VOLUME 9.8 fl (7.0-11.0); RBC 3.18 10^6/uL (3.5-6.1); RED CELL DISTRIBUTION WIDTH 14.9 % (11.5-14.5); WHITE BLOOD COUNT 11.8 10^3/uL (4.5-11.0)
[2018-08-22 08:05] LABS: ALBUMIN 3.3 g/dL (3.0-4.8); ALT/SGPT 25 U/L (7-56); AST/SGOT 21 U/L (14-36); BLOOD UREA NITROGEN 18 mg/dL (7-21); GFR NON-AFRICAN AMERICAN > 60
--- NOTE | 2018-08-22 08:54 | CT ---
Date of service: 08/22/2018 PROCEDURE: CT HEAD WITHOUT CONTRAST. HISTORY: s/p fall - now with headache COMPARISON: 08/11/2018 TECHNIQUE: Axial computed tomography images were obtained through the head/brain without intravenous contrast. Radiation dose: Total exam DLP = 1708.44 mGy-cm. This CT exam was performed using one or more of the following dose reduction techniques: Automated exposure control, adjustment of the mA and/or kV according to patient size, and/or use of iterative reconstruction technique. FINDINGS: HEMORRHAGE: No intracranial hemorrhage. BRAIN: No mass effect or edema. No atrophy or chronic microvascular ischemic changes. VENTRICLES: Unremarkable. No hydrocephalus. CALVARIUM: Unremarkable. PARANASAL SINUSES: Unremarkable as visualized. No significant inflammatory changes. MASTOID AIR CELLS: Unremarkable as visualized. No inflammatory changes. OTHER FINDINGS: None. IMPRESSION: No acute intracranial findings
--- NOTE | 2018-08-22 09:38 | RAD ---
Date of service: 08/22/2018 HISTORY: s/p fall COMPARISON: No prior. FINDINGS: BONES: Alignment maintained. No fracture. DISC SPACES: Normal. SOFT TISSUES: Normal. OTHER FINDINGS: None. IMPRESSION: Normal radiographs of the thoracic spine.
--- NOTE | 2018-08-22 09:39 | RAD ---
Date of service: 08/22/2018 PROCEDURE: Cervical Spine Radiographs. HISTORY: Pain. COMPARISON: None available. FINDINGS: BONES: Alignment maintained. No fracture. Dens Intact. DISC SPACES: Normal. SOFT TISSUES: Normal. No prevertebral soft tissue swelling. OTHER FINDINGS: None. IMPRESSION: Normal cervical spine radiographs
--- NOTE | 2018-08-22 09:53 | PN ---
DATE: 08/20/2018 SUBJECTIVE: This 58-year-old female was examined at her bedside on the morning of Wednesday, August 20, 2018, and her case was reviewed with nursing. The patient remains weak, deconditioned, and with acute psychosis. She is not agitated at present. PHYSICAL EXAMINATION: VITAL SIGNS: She had a temperature of 98.5, respirations 18, pulse 95, blood pressure 98/56, pulse ox 99% on room air. Physical exam remains unchanged. LABORATORY DATA: White count is 13,600, previously 15,200, hemoglobin 10.4, hematocrit 32.1, and platelets 459,000. Sodium 139, K 3.5, chloride 103, bicarb 23, BUN 13, creatinine 0.8. Random blood sugar was 80. IMPRESSION: A 58-day-old female with multiple medical problems including acute psychosis, chronic peripheral neuropathy, status post septic shock, respiratory failure, now with marked deconditioning. PLAN: At present is to continue parenteral Ativan p.r.n., D5W at 40 mL/h, Neurontin, Risperdal, Seroquel, and thiamine. She is receiving topical skin care. She is being followed by co-consultants. Disposition will be decided based on clinical progress. Kena Lazo MD MTDD
--- NOTE | 2018-08-22 10:07 | PN ---
DATE: 08/21/2018 SUBJECTIVE: This 58-year-old female was examined at her bedside on the afternoon of 08/21/2018. This case was reviewed in detail with nurse, Maday Sales, registered nurse. The patient has episodes of agitation. She also has had a poor p.o. intake. PHYSICAL EXAMINATION: VITAL SIGNS: At present, her physical exam showed a temperature of 98.1, respirations 18, pulse 82, and blood pressure 125/69 with a pulse ox of 100% on room air. Physical exam is unchanged. LABORATORY DATA: White count 13,000, previously 15,200, hemoglobin 10.9, hematocrit 33.8, platelets 461,000. Potassium level 4.4 and random blood sugar 146. Recent blood and urine culture show no growth. IMPRESSION: A 58-year-old female admitted with septic shock and chronic peripheral neuropathy, now with acute psychosis and marked deconditioning, poor p.o. appetite. PLAN: Continue parenteral Ativan p.r.n. agitation, IV D5W, oral Neurontin, Risperdal, Seroquel, and thiamine. She is being followed by Dr. Bah from Infectious Disease and Dr. Love from Psychiatry. Plan is for stabilization and discharge to family members when discharged home when physically stable. Overall prognosis remains poor. Kena Lazo MD
[2018-08-22] MEDS ORDERED: Sodium Chloride 0.9% 500 ML IV STA ×2 (10:32→10:56)
[2018-08-22] MEDS ORDERED: Vancomycin 1gm in NS 250ml 1 GM/250 ML BAG IVPB STA (10:57)
[2018-08-22] MEDS ORDERED: Meropenem IV 1 gm in NS 1 GM/50 ML BAG IVPB STA ×2 (10:59→11:16)
--- NOTE | 2018-08-22 11:05 | RAD ---
Date of service: 08/22/2018 HISTORY: R/O pneumonia COMPARISON: 08/19/2018 FINDINGS: LUNGS: Minimal infiltrate in right lower lobe PLEURA: No significant pleural effusion identified, no pneumothorax apparent. CARDIOVASCULAR: No aortic atherosclerotic calcification present. Normal cardiac size. No pulmonary vascular congestion. OSSEOUS STRUCTURES: No significant abnormalities. VISUALIZED UPPER ABDOMEN: Normal. OTHER FINDINGS: None. IMPRESSION: Minimal patchy infiltrate in the right lower lobe
[2018-08-22 11:11] LABS: ARTERIAL BLOOD GAS HCO3 29.8 mmol/L (21-28); ARTERIAL BLOOD GAS O2 SAT 98.4 % (95-98); ARTERIAL BLOOD GAS PCO2 47 mm/Hg (35-45); ARTERIAL BLOOD GAS PH 7.41 (7.35-7.45); ARTERIAL BLOOD GAS TCO2 31.2 mmol.L (22-28)
--- NOTE | 2018-08-22 11:26 | CP.PCM.PN ---
Subjective - Date & Time of Evaluation Date of Evaluation: 08/22/18 Time of Evaluation: 10:00 - Subjective Subjective: House Doc Note: Called for hypothermia Temp 93F 58 year old female with PMH asthma, DVT, admitted to [facility] [place], s/p hypovolemic shock requiring intubation, currently called for low temperature 93F. Patient had an unwitnessed fall this AM, received haldol 2.5 mg PO and ativan 1 mg IV for agitation. Patient sleepy, drowsy, but responsive to touch, painful stimuli, moving all extremities. ROS limited due to patient's AMS. Vital Signs: Temp 93F, BP 86/55, HR 70, RR 16, 98% RA. PE: Neuro: drowsy, responsive to painful stimuli Respiratory: CTA bilaterally. No wheezes or rhonchi Cardio: S1, S2. No murmurs, rubs, gallops. No JVD. Abdomen: soft, nondistended, nontender Extremities: no calf tenderness, no edema Skin: + sacral ulcer/breakdown A/P: SIRS, r/o sepsis vs sedative effect - CXR negative - blood cultures, UA, urine culture - ABG with lactate reviewed, LA 0.5 - blood glucose 76 - warming blanket - 2 L NS bolus -> then D51/2 NS @ 125 - hold ativan prn - PMD Dr Lazo aware, requests ICU consult. - Discussed with ID Dr Strauss, will give one dose of Vanco and Merrem - ICU consult Dr Cottrell consulted, discussed case, patient accepted to ICU. Kristi Winston, PGY2. Objective - Vital Signs/Intake and Output Vital Signs (last 24 hours): Temp Pulse Resp BP Pulse Ox 97.4 F L 91 H 18 108/69 100 08/22/18 06:00 08/22/18 06:00 08/22/18 06:00 08/22/18 06:00 08/22/18 06:00 - Medications Medications: Current Medications Acetaminophen (Tylenol 325mg Tab) 650 mg PO Q4H PRN PRN Reason: Pain, Mild (1-3) Last Admin: 08/18/18 10:06 Dose: 650 mg Collagenase (Santyl) 0 gm TOP DAILY [facility]ELY Last Admin: 08/15/18 09:48 Dose: Not Given Gabapentin (Neurontin) 100 mg PO TID [facility] Last Admin: 08/21/18 18:39 Dose: 100 mg Sodium Chloride (Sodium Chloride 0.9%) 500 mls @ 999 mls/hr IV .Q31M STA Stop: 08/22/18 11:26 Dextrose/Sodium Chloride (Dextrose 5%/0.45% Ns 1000 Ml) 1,000 mls @ 125 mls/hr IV .Q8H MELY Meropenem (Merrem Iv 1 Gm Premix) 1 gm in 50 mls @ 12.5 mls/hr IVPB STAT STA; Protocol Stop: 08/22/18 14:58 Vancomycin HCl (Vancomycin 1gm) 1 gm in 250 mls @ 167 mls/hr IVPB STAT STA; Protocol Stop: 08/22/18 12:26 Lorazepam (Ativan) 1 mg IVP Q6H PRN; Protocol PRN Reason: Anxiety Last Admin: 08/22/18 07:30 Dose: 1 mg Nicotine (Nicoderm Cq) 1 patch TD DAILY [facility] Last Admin: 08/22/18 05:28 Dose: 1 patch Nystatin (Nystop Topical Powder) 0 gm TOP BID [facility] Last Admin: 08/21/18 18:39 Dose: Not Given Quetiapine Fumarate (Seroquel) 25 mg PO HS MELY; Protocol Last Admin: 08/21/18 21:54 Dose: 25 mg Risperidone (Risperdal Tab) 2 mg PO BID [facility]ELY; Protocol Last Admin: 08/21/18 17:17 Dose: 2 mg Thiamine HCl (Vitamin B1 Tab) 100 mg PO DAILY [facility] Last Admin: 08/21/18 10:38 Dose: 100 mg - Labs Labs: 08/22/18 07:20 08/22/18 07:20 PT 11.3 SECONDS (9.4-12.5) 07/20/18 16:01 INR 0.99 07/20/18 16:01 APTT 27.8 Seconds (25.1-36.5) 08/02/18 05:40
[2018-08-22] MEDS ORDERED: Sodium Chloride 0.9% 1,000 ML IV STA (11:28)
[2018-08-22 11:59] LABS: INR 1.09; PROTHROMBIN TIME 12.5 SECONDS (9.4-12.5)
--- NOTE | 2018-08-22 12:05 | CP.PCM.PN ---
Subjective - Date & Time of Evaluation Date of Evaluation: 08/22/18 Time of Evaluation: 11:48 - Subjective Subjective: MICU Re-consult Note HPI Patient is 57yo female with PMhx of etOH abuse, DVT PE on Coumadin, admitted with severe hypothermia, distributive shock, Pancreatitis. Patient stabilized in MICU subsequently transferred to telemetry. Pt has had prolonged hospital stay on telemetry, and [facility] medical floor. This morning patient became hypothermic rectal temp 94.4, briefly hypotensive 75/42, s/p Ativan and Haldol for agitation, given IVF 1L NS bolus,. CT head and C-spine negative. Patient is currently somnolent responds to painful stimuli. Objective - Vital Signs/Intake and Output Vital Signs (last 24 hours): Temp Pulse Resp BP Pulse Ox 97.4 F L 91 H 18 108/69 100 08/22/18 06:00 08/22/18 06:00 08/22/18 06:00 08/22/18 06:00 08/22/18 06:00 - Medications Medications: Current Medications Acetaminophen (Tylenol 325mg Tab) 650 mg PO Q4H PRN PRN Reason: Pain, Mild (1-3) Last Admin: 08/18/18 10:06 Dose: 650 mg Collagenase (Santyl) 0 gm TOP DAILY [facility] Last Admin: 08/15/18 09:48 Dose: Not Given Gabapentin (Neurontin) 100 mg PO TID [facility] Last Admin: 08/21/18 18:39 Dose: 100 mg Hydrocortisone Sodium Succinate (Solu-Cortef) 50 mg IVP Q6 [facility] Dextrose/Sodium Chloride (Dextrose 5%/0.45% Ns 1000 Ml) 1,000 mls @ 125 mls/hr IV .Q8H MELY Vancomycin HCl (Vancomycin 1gm) 1 gm in 250 mls @ 167 mls/hr IVPB STAT STA; Protocol Stop: 08/22/18 12:26 Meropenem (Merrem Iv 1 Gm Premix) 1 gm in 50 mls @ 50 mls/hr IVPB STAT STA; Protocol Stop: 08/22/18 12:15 Sodium Chloride (Sodium Chloride 0.9%) 1,000 mls @ 999 mls/hr IV .Q1H1M STA Stop: 08/22/18 12:28 Lorazepam (Ativan) 1 mg IVP Q6H PRN; Protocol PRN Reason: Anxiety Last Admin: 08/22/18 07:30 Dose: 1 mg Nicotine (Nicoderm Cq) 1 patch TD DAILY [facility] Last Admin: 08/22/18 05:28 Dose: 1 patch Nystatin (Nystop Topical Powder) 0 gm TOP BID [facility] Last Admin: 08/21/18 18:39 Dose: Not Given Quetiapine Fumarate (Seroquel) 25 mg PO HS [facility]ELY; Protocol Last Admin: 08/21/18 21:54 Dose: 25 mg Risperidone (Risperdal Tab) 2 mg PO BID MELY; Protocol Last Admin: 08/21/18 17:17 Dose: 2 mg Thiamine HCl (Vitamin B1 Tab) 100 mg PO DAILY [facility] Last Admin: 08/21/18 10:38 Dose: 100 mg - Labs Labs: 08/22/18 07:20 08/22/18 07:20 PT 11.3 SECONDS (9.4-12.5) 07/20/18 16:01 INR 0.99 07/20/18 16:01 APTT 27.8 Seconds (25.1-36.5) 08/02/18 05:40 - Constitutional Appears: Older Than Stated Age, Confused, Cachectic, Chronically Ill - Head Exam Head Exam: NORMAL INSPECTION - ENT Exam ENT Exam: Mucous Membranes Dry - Respiratory Exam Respiratory Exam: Clear to Ausculation Bilateral, NORMAL BREATHING PATTERN - Cardiovascular Exam Cardiovascular Exam: REGULAR RHYTHM, +S1, +S2 - GI/Abdominal Exam GI & Abdominal Exam: Soft, Normal Bowel Sounds - Extremities Exam Extremities Exam: Normal Inspection - Neurological Exam Neurological Exam: Altered - Skin Skin Exam: Normal Color, Warm Assessment and Plan - Assessment and Plan (Free Text) Assessment: Patient is 58yo female with PMhx of etOH abuse, DVT PE on Coumadin, with hypothermia, elevated wbc, severe sepsis Severe Sepsis Hypothermia Leukocytosis AMS - currently hypothermic 94.4, BP 80/50, Lactate 0.5, on 2L NS bolus, somnolent s/p Ativa, haldol - Labs, imaging, chart reviewed - unclear source of sepsis, CXR with minimally questionable RML infiltrate, on broad spectrum abx, LFTs normal, lactate normal - MRI brain pending, no nuchal rigidity; ID following Recommend: - supp o2 as needed, would hold off further sedatives, monitor resp status, currently protecting airway - Broad spectrum Abx, Vanco, Merrem - re-culture, UCx, BCx, check procal - check TSH, thyroid panel - NPO - IVF bolus, total of 3L - bear hugger - stress dose steroids, Solu-cortef 50mg Q6hr IV - repeat INR - GI ppx - DVT ppx - Transfer to MICU Critical care time 35 minutes
--- NOTE | 2018-08-22 12:42 | PN ---
DATE: 08/22/2018 SUBJECTIVE: This 58-year-old female experienced an unwitnessed fall out of her bed earlier this morning. I was called by the house physician that she was hypothermic, and I have called intensive care for further evaluation of the above. The patient has been acutely psychotic for the past several days with active hallucinations and poor p.o. intake of food and fluids. PHYSICAL EXAMINATION: VITALS SIGNS: I was told her temperature is presently 93 and earlier was 97.4, respirations 18, pulse 91 and blood pressure 108/69. Physical exam remains unchanged. LABORATORY DATA: White count 11,800, hemoglobin 9.9, hematocrit 30.9, platelets 434,000. Sodium 139, K 3.9, chloride 103, bicarb 33, BUN 18, creatinine 0.7, random blood sugar 80, calcium 10. Bilirubin 0.2, AST 21, ALT 25, alk phos 84, albumin 3.3, normal. IMPRESSION AND PLAN: This is a 58-year-old female admitted with septic shock, hypothermia, respiratory failure, now with failure to thrive, acute psychosis, chronic peripheral neuropathy and reported hypothermia. The patient continues on D5W at 40 mL/hour and is recommended to have Risperdal, Seroquel and a fluid challenge. She will continue on oral thiamine. I am hopeful that she may be considered for intensive care transfer and needs an MRI, Neurological, Psychiatric and Infectious Disease reevaluations. Overall prognosis remains poor. All of the above was discussed with co-consultants Kena Lazo MD
[2018-08-22] MEDS ORDERED: Gadodiamide 287 MG/ML VIAL (15ML) IV ONE (14:20)
--- NOTE | 2018-08-22 15:28 | PCM.SEPTIC ---
Sepsis Progress Note - Reassessment Type Date of Evaluation: 08/22/18 Time of Evaluation: 15:28 Reassessment Type: Non-invasive reassessment - Non Invasive Reassessment Were the most recent vital sign reviewed: Yes Vital Sign (Latest): Temp Pulse Resp BP Pulse Ox 97.4 F L 91 H 18 108/69 100 08/22/18 06:00 08/22/18 06:00 08/22/18 06:00 08/22/18 06:00 08/22/18 06:00 Cardiovascular: Yes: Regular Rate, Rhythm Respiratory: Yes: Normal Breath Sounds Capillary Refill: Normal (Less than 2 sec) Pulses: Normal Radial, Normal Dorsalis Pedis, Normal Posterior Tibialis Skin: Normal Color, Dry
--- NOTE | 2018-08-22 15:49 | CON ---
DATE: 08/22/2018 CHIEF COMPLAINT: Altered mental status. HISTORY OF PRESENT ILLNESS: This is a 57-year-old woman with a past medical history of ETOH abuse; DVT and PE, on Coumadin; history of alcohol-induced neuropathy and deconditioning state, who was admitted initially for severe hypothermia distributed shock, pancreatitis, who was stabilized in the ICU and subsequently transferred to the telemetry floor. She had a prolonged hospital stay in telemetry and general medical floor. She became, this morning on 08/22/2018, hypothermic with a rectal temperature of 94.4 and briefly hypotensive with a blood pressure of 94/61, and therefore transferred to the ICU. She is status post Ativan and Haldol for agitation. This case was discussed with Dr. Love and recommended to discontinue Risperdal and place her on Haldol 5 mg p.o. daily in addition to p.r.n. doses of 2 mg p.r.n. IV push. A repeat CAT scan of the head showed no acute intracranial abnormality. She was responsive to noxious stimulus, but is lethargic. MRI of the brain with and without contrast is currently pending, which will hopefully be done today. Case was discussed with the ICU nurses in order for the MRI to occur today. PAST MEDICAL HISTORY: As above. SOCIAL HISTORY: History of ETOH abuse. ALLERGIES: NO KNOWN DRUG ALLERGIES. MEDICATIONS: Reviewed by nurse's reconciliation sheet. FAMILY HISTORY: Noncontributory. REVIEW OF SYSTEMS: Did not obtain due to the patient's lethargic mental status. LABORATORY DATA: Sodium is 139, potassium 3.9, chloride of 102, carbon dioxide of 33, BUN of 18, creatinine 0.7, random glucose of 80 and phosphorus 4.6. Procalcitonin was done on 08/19/2018, which was low. PHYSICAL EXAMINATION: GENERAL: The patient is lethargic, in no acute distress. VITAL SIGNS: Temperature 97.4, pulse rate of 91, blood pressure of 108/69, respiratory rate 18, and oxygen saturation 100% on room air. HEENT: Atraumatic and normocephalic. PERRLA. Extraocular muscles are intact. NECK: Supple. No JVD. No adenopathy noted. LUNGS: Clear to auscultation. No adventitious sounds. HEART: S1 and S2. Normal rate and rhythm. No murmurs, rubs, or gallops. ABDOMEN: Soft, nontender, and nondistended. Bowel sounds are present. EXTREMITIES: No clubbing. No cyanosis. Peripheral pulses are 2+ felt bilaterally. NEUROLOGIC: This patient is cachectic-looking and lethargic. Speech was previously normal with no aphasia, but it is difficult to assess because the patient is lethargic. Cranial nerves II through XII are intact. Motor exam: Severely deconditioned and cachectic. Atrophy of both intrinsic and partial muscles of the extremities, both upper and lower extremities. Moves all extremities randomly and intermittently, spontaneously. Sensory exam: Withdraws to localized noxious stimulus. DTRs are 2+ throughout and 1 at both knees and absent at the ankles. Coordination and gait are deferred for now. Toes are downgoing bilaterally. ASSESSMENT AND PLAN: This is a 57-year-old woman with history of ethanol abuse, deep venous thrombosis and pulmonary embolism with hypothermia, elevated white blood count and severe sepsis, who was having episodes of delirium on the general medical floor and was given Risperdal, which calmed her down, but responded much better to Haldol than Risperdal, therefore, her Risperdal has been discontinued as per Psychiatry and recommended to put her on Haldol. She is currently lethargic and had transient cerebral hypoperfusion to the brain from lower systolic and diastolic blood pressures and hypothermia causing lethargic mental status. At this time, repeat CAT scan of the head showed no acute intracranial abnormality. We will recommend: 1. Broad spectrum antibiotics for now, given the severe sepsis. 2. Intravenous fluid bolus. 3. Could consider some steroids to counteract her lethargic mental status and await for the MRI of the brain with and without contrast to see if any intracranial pathology is ongoing. At this time, continue with ICU management. Thank you for this consult. Lyle Hamilton MD
--- NOTE | 2018-08-22 15:57 | CP.PCM.PN ---
Subjective - Date & Time of Evaluation Date of Evaluation: 08/22/18 Time of Evaluation: 10:40 - Subjective Subjective: Patient became lethargic again and hypothermic, poorly responsive but just got Haldol. No diarrhea, no SOB at rest. Objective - Vital Signs/Intake and Output Vital Signs (last 24 hours): Temp Pulse Resp BP Pulse Ox 97.4 F L 91 H 18 108/69 100 08/22/18 06:00 08/22/18 06:00 08/22/18 06:00 08/22/18 06:00 08/22/18 06:00 - Medications Medications: Current Medications Acetaminophen (Tylenol 325mg Tab) 650 mg PO Q4H PRN PRN Reason: Pain, Mild (1-3) Last Admin: 08/18/18 10:06 Dose: 650 mg Collagenase (Santyl) 0 gm TOP DAILY [facility] Last Admin: 08/15/18 09:48 Dose: Not Given Gabapentin (Neurontin) 100 mg PO TID [facility] Last Admin: 08/21/18 18:39 Dose: 100 mg Haloperidol (Haldol) 5 mg PO DAILY [facility]; Protocol Last Admin: 08/22/18 14:21 Dose: Not Given Haloperidol Lactate (Haldol) 2 mg IVP Q4 PRN; Protocol PRN Reason: Agitation Hydrocortisone Sodium Succinate (Solu-Cortef) 50 mg IVP Q6 [facility] Dextrose/Sodium Chloride (Dextrose 5%/0.45% Ns 1000 Ml) 1,000 mls @ 125 mls/hr IV .Q8H [facility] Lorazepam (Ativan) 1 mg IVP Q6H PRN; Protocol PRN Reason: Anxiety Last Admin: 08/22/18 07:30 Dose: 1 mg Nicotine (Nicoderm Cq) 1 patch TD DAILY [facility] Last Admin: 08/22/18 05:28 Dose: 1 patch Nystatin (Nystop Topical Powder) 0 gm TOP BID [facility] Last Admin: 08/21/18 18:39 Dose: Not Given Quetiapine Fumarate (Seroquel) 25 mg PO HS [facility]ELY; Protocol Last Admin: 08/21/18 21:54 Dose: 25 mg Thiamine HCl (Vitamin B1 Tab) 100 mg PO DAILY [facility] Last Admin: 08/21/18 10:38 Dose: 100 mg - Labs Labs: 08/22/18 07:20 08/22/18 07:20 PT 12.5 SECONDS (9.4-12.5) 08/22/18 11:31 INR 1.09 08/22/18 11:31 APTT 31.0 Seconds (25.1-36.5) 08/22/18 11:31 - Constitutional Appears: Chronically Ill - Head Exam Head Exam: NORMAL INSPECTION - Neck Exam Neck Exam: absent: Lymphadenopathy, Meningismus - Respiratory Exam Respiratory Exam: Decreased Breath Sounds - Cardiovascular Exam Cardiovascular Exam: +S1, +S2 - GI/Abdominal Exam GI & Abdominal Exam: Soft. absent: Tenderness Assessment and Plan - Assessment and Plan (Free Text) Plan: Assessment new onset SIRS with hypothermia, R/O sepsis R/O acute CVA delirium S/P Septic shock S/P VDRF (now extubated) due to colitis and pancreatitis without blockage of biliary tract disease, now with pseudomembranous colitis S/P debridement of left foot ulcer related to peripheral arterial disease history of DVT asthma Plan will repeat septic work up and start Vancomycin and Merrem - patient upgraded to ICU for closer observation discussed with Dr. Lazo - got CT head but should MRI brain and follow up further Neurology and Psych recommendations overall prognosis is poor
--- NOTE | 2018-08-22 16:00 | MRI ---
Date of service: 08/22/2018 PROCEDURE: MRI BRAIN WITHOUT CONTRAST HISTORY: altered mental status, fall COMPARISON: None available. TECHNIQUE: Multiplanar, multisequence MR images of the brain were obtained without intravenous contrast enhancement. FINDINGS: HEMORRHAGE: None DWI: No evidence of an acute or early subacute infarction. BRAIN PARENCHYMA: No mass effect or edema. No atrophy or chronic microvascular ischemic changes. VENTRICLES: Unremarkable. No hydrocephalus. CRANIUM: Unremarkable. ORBITS: Grossly unremarkable. PARANASAL SINUSES/MASTOIDS: Clear VASCULAR SYSTEM: Skull base flow voids intact. OTHER FINDINGS: Severely limited by patient motion artifact. IMPRESSION: Severely limited by patient motion artifact. No gross abnormality.
--- NOTE | 2018-08-22 16:07 | CP.PCM.PN ---
Subjective - Date & Time of Evaluation Date of Evaluation: 08/22/18 Time of Evaluation: 09:45 - Subjective Subjective: pt seen unresponsive at bedside dressing clean and intact with no breakthrough on left heel Objective - Vital Signs/Intake and Output Vital Signs (last 24 hours): Temp Pulse Resp BP Pulse Ox 97.4 F L 91 H 18 108/69 100 08/22/18 06:00 08/22/18 06:00 08/22/18 06:00 08/22/18 06:00 08/22/18 06:00 - Medications Medications: Current Medications Acetaminophen (Tylenol 325mg Tab) 650 mg PO Q4H PRN PRN Reason: Pain, Mild (1-3) Last Admin: 08/18/18 10:06 Dose: 650 mg Collagenase (Santyl) 0 gm TOP DAILY [facility] Last Admin: 08/15/18 09:48 Dose: Not Given Gabapentin (Neurontin) 100 mg PO TID [facility] Last Admin: 08/21/18 18:39 Dose: 100 mg Haloperidol (Haldol) 5 mg PO DAILY [facility]; Protocol Last Admin: 08/22/18 14:21 Dose: Not Given Haloperidol Lactate (Haldol) 2 mg IVP Q4 PRN; Protocol PRN Reason: Agitation Hydrocortisone Sodium Succinate (Solu-Cortef) 50 mg IVP Q6 [facility] Dextrose/Sodium Chloride (Dextrose 5%/0.45% Ns 1000 Ml) 1,000 mls @ 125 mls/hr IV .Q8H [facility] Meropenem (Merrem Iv 1 Gm Premix) 1 gm in 50 mls @ 100 mls/hr IVPB Q8 [facility]; Protocol Vancomycin HCl (Vancomycin 1gm) 1 gm in 250 mls @ 167 mls/hr IVPB Q12H [facility]; Protocol Lorazepam (Ativan) 1 mg IVP Q6H PRN; Protocol PRN Reason: Anxiety Last Admin: 08/22/18 07:30 Dose: 1 mg Nicotine (Nicoderm Cq) 1 patch TD DAILY [facility] Last Admin: 08/22/18 05:28 Dose: 1 patch Nystatin (Nystop Topical Powder) 0 gm TOP BID [facility] Last Admin: 08/21/18 18:39 Dose: Not Given Quetiapine Fumarate (Seroquel) 25 mg PO HS [facility]; Protocol Last Admin: 08/21/18 21:54 Dose: 25 mg Thiamine HCl (Vitamin B1 Tab) 100 mg PO DAILY [facility] Last Admin: 08/21/18 10:38 Dose: 100 mg - Labs Labs: 08/22/18 07:20 08/22/18 07:20 PT 12.5 SECONDS (9.4-12.5) 08/22/18 11:31 INR 1.09 08/22/18 11:31 APTT 31.0 Seconds (25.1-36.5) 08/22/18 11:31 - Constitutional Appears: Cachectic, Chronically Ill - Extremities Exam Extremities Exam: absent: Calf Tenderness Additional comments: NVSU - wound on left heel is small with granulation tissue and no signs of infection; no sinus tract no undermining no pus noted; no other wounds noted at this time Assessment and Plan - Assessment and Plan (Free Text) Assessment: verruca left heel - stable Plan: cont local care MWF cont offloading
[2018-08-22] MEDS: Collagenase 250 Units/gm Ointment(30 gm) TOP SCH (16:28)
[2018-08-22] MEDS: Nystatin 100,000 Units/gm Topical Pow(15 gm) TOP SCH ×2 (16:28→18:00)
[2018-08-22] MEDS: Dextrose 5%/0.45% NS 1,000 ML IV SCH (17:11)
[2018-08-22 18:49] LABS: URINE APPEARANCE CLEAR (CLEAR); URINE BILIRUBIN NEGATIVE (NEGATIVE); URINE BLOOD NEGATIVE (NEGATIVE); URINE COLOR LIGHT YELLOW (YELLOW); URINE GLUCOSE (UA) NEGATIVE (NEGATIVE); URINE LEUKOCYTE ESTERASE MODERATE Leu/uL (NEGATIVE); URINE PROTEIN NEGATIVE mg/dL (<30 mg/dL); URINE UROBILINOGEN 0.2 E.U./dL (<1 E.U./dL)
[2018-08-22 18:57] LABS: URINE RBC NEGATIVE /hpf (0-2)
[2018-08-22 19:49] LABS: VENOUS BLOOD GAS BASE EXCESS 5.4 mmol/L (0.0-2.0); VENOUS BLOOD GAS PO2 50 mm/Hg (30-55); VENOUS BLOOD PH 7.46 (7.32-7.43)
[2018-08-22] MEDS: Meropenem IV 1 gm in NS 1 GM/50 ML BAG IVPB SCH (21:47)
[2018-08-22] MEDS: Vancomycin 1gm in NS 250ml 1 GM/250 ML BAG IVPB SCH (21:53)
[2018-08-22 23:23] LABS: BLOOD UREA NITROGEN 18 mg/dL (7-21); CALCIUM 9.1 mg/dL (8.4-10.5); GFR NON-AFRICAN AMERICAN > 60
[2018-08-23 00:19] LABS: VENOUS BLOOD GAS BASE EXCESS 5.4 mmol/L (0.0-2.0); VENOUS BLOOD GAS PO2 52 mm/Hg (30-55); VENOUS BLOOD PH 7.49 (7.32-7.43)
[2018-08-23] MEDS: Dextrose 5%/0.45% NS 1,000 ML IV SCH ×2 (01:39→09:47)
[2018-08-23 05:50] LABS: BASO # 0.01 K/mm3 (0.0-2.0); BASO % 0.1 % (0.0-3.0); EOS % 0.1 % (1.5-5.0); GRAN # 11.14 (1.4-6.5); GRAN % 81.1 % (50.0-68.0); HEMOGLOBIN 9.2 g/dL (12.0-16.0); LYMPH % 14.3 % (22.0-35.0); MEAN CELL VOLUME 96.6 fl (80.0-105.0); MEAN CORPUSCULAR HGB CONC 32.1 g/dl (31.0-37.0); MEAN PLATELET VOLUME 9.9 fl (7.0-11.0); MONO # 0.6 (0.1-0.6); MONO % 4.4 % (1.0-6.0); RBC 2.97 10^6/uL (3.5-6.1); RED CELL DISTRIBUTION WIDTH 15.2 % (11.5-14.5); WHITE BLOOD COUNT 13.7 10^3/uL (4.5-11.0)
[2018-08-23 06:11] LABS: FREE T4 1.22 ng/dL (0.78-2.19)
[2018-08-23] MEDS: Meropenem IV 1 gm in NS 1 GM/50 ML BAG IVPB SCH ×3 (06:13→21:15)
[2018-08-23 06:44] LABS: ALBUMIN 3.1 g/dL (3.0-4.8); ALT/SGPT 19 U/L (7-56); AST/SGOT 20 U/L (14-36); BLOOD UREA NITROGEN 15 mg/dL (7-21); CALCIUM 9.1 mg/dL (8.4-10.5); GFR NON-AFRICAN AMERICAN > 60
--- NOTE | 2018-08-23 07:42 | CP.CCUPN ---
<John Schmidt - Last Filed: 08/23/18 12:07> CCU Subjective - Physician Review Subjective (Free Text): John Schmidt PGY-1 Progress Note for ICU Patient seen and evaluated at bedside. 1:1 sitter also at bedside. Periods of agitation and temperature 100.6 overnight. Currently, patient is slightly confused. Could not follow commands at this time. Further ROS unable to be obtained. CCU Objective - Vital Signs / Intake & Output Vital Signs (Last 4 hours): Vital Signs Temp Pulse 08/23/18 04:30 121 H 08/23/18 04:00 99.9 F H Intake and Output (Last 8hrs): Intake & Output 08/22/18 08/23/18 08/23/18 22:59 06:59 14:59 Intake Total 3500 Output Total 750 Balance 2750 Intake: IV 3200 Right Forearm 3200 Oral 300 Output: Urine 750 2-way Urethral 750 Other: # Bowel Movements 1 - Physical Exam Head: Positive for: Other (Bruising on the right scalp) Pupils: Positive for: PERRL Conjunctiva: Positive for: Normal Mouth: Positive for: Moist Mucous Membranes. Negative for: Normal Teeth (Poor dentition) Neck: Positive for: Other (R-IJ line in place) Respiratory/Chest: Positive for: Clear to Auscultation. Negative for: Respiratory Distress, Wheezes, Rales, Retracting, Rhonchi Cardiovascular: Positive for: Normal S1, S2, Peripheal Pulses Present Abdomen: Negative for: Tenderness, Distention, Peritoneal Signs, Guarding, Mass/Organomegaly Upper Extremity: Positive for: NORMAL PULSES, Other (4/5 motor strength of bilateral upper extremities. ). Negative for: Cyanosis, Edema Lower Extremity: Positive for: NORMAL PULSES, Other (Improved ROM and 4/5 motor strength in lower extremities bilaterally. ). Negative for: Edema, CALF TENDERNESS Skin: Positive for: Warm, Dry, Other (Bruising on the scalp, right thoracic region, sacrum, lateral maleoli, and bilateral knees (w/ swelling)) Psychiatric: Positive for: Alert. Negative for: Oriented x 3 (AAOx2) - Medications Active Medications: Active Medications Generic Name Dose Route Start Last Admin Trade Name Freq PRN Reason Stop Dose Admin Acetaminophen 650 mg 08/11/18 09:16 08/22/18 23:23 Tylenol 325mg Tab PO 650 mg Q4H PRN Administration Pain, Mild (1-3) Collagenase 0 gm 08/09/18 10:00 08/22/18 16:28 Santyl TOP Not Given DAILY [facility] Gabapentin 100 mg 08/17/18 14:00 08/22/18 17:42 Neurontin PO Not Given TID MELY Haloperidol 5 mg 08/22/18 13:30 08/22/18 14:21 Haldol PO Not Given DAILY MELY Protocol Haloperidol Lactate 2 mg 08/22/18 13:18 08/23/18 00:20 Haldol IVP 2 mg Q4 PRN Administration Agitation Protocol Hydrocortisone Sodium Succinate 50 mg 08/22/18 12:00 08/23/18 06:14 Solu-Cortef IVP 50 mg Q6 MELY Administration Dextrose/Sodium Chloride 1,000 mls @ 125 mls/hr 08/22/18 11:00 08/23/18 01:39 Dextrose 5%/0.45% Ns 1000 Ml IV 125 mls/hr .Q8H MELY Administration Meropenem 1 gm in 50 mls @ 100 mls/hr 08/22/18 22:00 08/23/18 06:13 Merrem Iv 1 Gm Premix IVPB 100 mls/hr Q8 MELY Administration Protocol Vancomycin HCl 1 gm in 250 mls @ 167 mls/hr 08/22/18 22:00 08/22/18 21:53 Vancomycin 1gm IVPB 167 mls/hr Q12H MELY Administration Protocol Lorazepam 1 mg 08/15/18 12:19 08/22/18 07:30 Ativan IVP 1 mg Q6H PRN Administration Anxiety Protocol Nicotine 1 patch 08/22/18 03:45 08/22/18 16:19 Nicoderm Cq TD Not Given DAILY [facility] Nystatin 0 gm 08/10/18 18:00 08/22/18 16:28 Nystop Topical Powder TOP Not Given BID [facility] Quetiapine Fumarate 25 mg 08/15/18 22:00 08/22/18 21:46 Seroquel PO 25 mg HS MELY Administration Protocol Thiamine HCl 100 mg 08/12/18 11:30 08/22/18 16:29 Vitamin B1 Tab PO Not Given DAILY MELY - Patient Studies Lab Studies: Microbiology Studies 08/19/18 10:15 Blood Culture - Preliminary Blood-Venous NO GROWTH AFTER 3 DAYS 08/19/18 10:00 Blood Culture - Preliminary Blood-Venous NO GROWTH AFTER 3 DAYS Lab Studies 08/23/18 08/23/18 08/23/18 Range/Units 05:00 05:00 05:00 WBC 13.7 H (4.5-11.0) 10^3/uL RBC 2.97 L (3.5-6.1) 10^6/uL Hgb 9.2 L (12.0-16.0) g/dL Hct 28.7 L (36.0-48.0) % MCV 96.6 (80.0-105.0) fl MCH 31.0 (25.0-35.0) pg MCHC 32.1 (31.0-37.0) g/dl RDW 15.2 H (11.5-14.5) % Plt Count 425 (120.0-450.0) 10^3/uL MPV 9.9 (7.0-11.0) fl Gran % 81.1 H (50.0-68.0) % Lymph % (Auto) 14.3 L (22.0-35.0) % [place] % (Auto) 4.4 (1.0-6.0) % Eos % (Auto) 0.1 L (1.5-5.0) % Baso % (Auto) 0.1 (0.0-3.0) % Gran # 11.14 H (1.4-6.5) Lymph # (Auto) 2.0 (1.2-3.4) [place] # (Auto) 0.6 (0.1-0.6) Eos # (Auto) 0.0 (0.0-0.7) Baso # (Auto) 0.01 (0.0-2.0) K/mm3 PT (9.4-12.5) SECONDS INR APTT (25.1-36.5) Seconds pCO2 (35-45) mm/Hg pO2 (80-100) mm/Hg HCO3 (21-28) mmol/L ABG pH (7.35-7.45) ABG Total CO2 (22-28) mmol.L ABG O2 Saturation (95-98) % ABG Base Excess (-2.0-3.0) mmol/L ABG Potassium (3.6-5.2) mmol/L VBG pH (7.32-7.43) VBG pCO2 (40-60) VBG HCO3 (21-28) mmol/l VBG Total CO2 (22-28) mmol.L VBG O2 Sat (Calc) (40-65) % VBG Base Excess (0.0-2.0) mmol/L VBG Potassium (3.6-5.2) mmol/L Glucose (65-105) mg/dl Lactate (0.7-2.1) mmol/L FiO2 % Sodium 139 (132-148) mmol/L Potassium 3.7 (3.6-5.0) mmol/L Chloride 107 (98-107) mmol/L Carbon Dioxide 28 (21-33) mmol/L Anion Gap 8 L (10-20) BUN 15 (7-21) mg/dL Creatinine 0.7 (0.7-1.2) mg/dl Est GFR ( Amer) > 60 Est GFR (Non-Af Amer) > 60 POC Glucose (mg/dL) (65-110) mg/dL Random Glucose 137 H (70-110) mg/dL Calcium 9.1 (8.4-10.5) mg/dL Phosphorus 3.7 (2.5-4.5) mg/dL Magnesium 1.9 (1.7-2.2) mg/dL Total Bilirubin 0.1 L (0.2-1.3) mg/dL AST 20 (14-36) U/L ALT 19 (7-56) U/L Alkaline Phosphatase 77 (38-126) U/L Ammonia (9-33) umol/L Total Protein 6.1 (5.8-8.3) g/dL Albumin 3.1 (3.0-4.8) g/dL Globulin 3.0 gm/dL Albumin/Globulin Ratio 1.0 L (1.1-1.8) Free T4 1.22 (0.78-2.19) ng/dL TSH 3rd Generation 1.91 (0.46-4.68) mIU/mL Arterial Blood Potassium (3.6-5.2) mmol/L Venous Blood Potassium (3.6-5.2) mmol/L Urine Color (YELLOW) Urine Appearance (CLEAR) Urine pH (4.7-8.0) Ur Specific [place] (1.005-1.035) Urine Protein (<30 mg/dL) mg/dL Urine Glucose (UA) (NEGATIVE) mg/dL Urine Ketones (NEGATIVE) mg/dL Urine Blood (NEGATIVE) Urine Nitrate (NEGATIVE) Urine Bilirubin (NEGATIVE) Urine Urobilinogen (<1 E.U./dL) E.U./dL Ur Leukocyte Esterase (NEGATIVE) Thomas/uL Urine RBC (0-2) /hpf Urine WBC (0-6) /hpf Ur Epithelial Cells (0-5) /hpf Urine Other /hpf 08/22/18 08/22/18 08/22/18 Range/Units 23:55 23:10 23:05 WBC (4.5-11.0) 10^3/uL RBC (3.5-6.1) 10^6/uL Hgb (12.0-16.0) g/dL Hct (36.0-48.0) % MCV (80.0-105.0) fl MCH (25.0-35.0) pg MCHC (31.0-37.0) g/dl RDW (11.5-14.5) % Plt Count (120.0-450.0) 10^3/uL MPV (7.0-11.0) fl Gran % (50.0-68.0) % Lymph % (Auto) (22.0-35.0) % [place] % (Auto) (1.0-6.0) % Eos % (Auto) (1.5-5.0) % Baso % (Auto) (0.0-3.0) % Gran # (1.4-6.5) Lymph # (Auto) (1.2-3.4) [place] # (Auto) (0.1-0.6) Eos # (Auto) (0.0-0.7) Baso # (Auto) (0.0-2.0) K/mm3 PT (9.4-12.5) SECONDS INR APTT (25.1-36.5) Seconds pCO2 (35-45) mm/Hg pO2 52 (80-100) mm/Hg HCO3 (21-28) mmol/L ABG pH (7.35-7.45) ABG Total CO2 (22-28) mmol.L ABG O2 Saturation (95-98) % ABG Base Excess (-2.0-3.0) mmol/L ABG Potassium (3.6-5.2) mmol/L VBG pH 7.49 H (7.32-7.43) VBG pCO2 38.0 L (40-60) VBG HCO3 29.0 H (21-28) mmol/l VBG Total CO2 30.2 H (22-28) mmol.L VBG O2 Sat (Calc) 90.7 H (40-65) % VBG Base Excess 5.4 H (0.0-2.0) mmol/L VBG Potassium 4.2 (3.6-5.2) mmol/L Glucose 159 H (65-105) mg/dl Lactate 1.9 (0.7-2.1) mmol/L FiO2 21.0 % Sodium 139.0 139 (132-148) mmol/L Potassium 4.4 (3.6-5.0) mmol/L Chloride 106.0 105 (98-107) mmol/L Carbon Dioxide 29 (21-33) mmol/L Anion Gap 10 (10-20) BUN 18 (7-21) mg/dL Creatinine 0.8 (0.7-1.2) mg/dl Est GFR ( Amer) > 60 Est GFR (Non-Af Amer) > 60 POC Glucose (mg/dL) 150 H (65-110) mg/dL Random Glucose 147 H (70-110) mg/dL Calcium 9.1 (8.4-10.5) mg/dL Phosphorus (2.5-4.5) mg/dL Magnesium (1.7-2.2) mg/dL Total Bilirubin (0.2-1.3) mg/dL AST (14-36) U/L ALT (7-56) U/L Alkaline Phosphatase (38-126) U/L Ammonia (9-33) umol/L Total Protein (5.8-8.3) g/dL Albumin (3.0-4.8) g/dL Globulin gm/dL Albumin/Globulin Ratio (1.1-1.8) Free T4 (0.78-2.19) ng/dL TSH 3rd Generation (0.46-4.68) mIU/mL Arterial Blood Potassium (3.6-5.2) mmol/L Venous Blood Potassium 4.2 (3.6-5.2) mmol/L Urine Color (YELLOW) Urine Appearance (CLEAR) Urine pH (4.7-8.0) Ur Specific [place] (1.005-1.035) Urine Protein (<30 mg/dL) mg/dL Urine Glucose (UA) (NEGATIVE) mg/dL Urine Ketones (NEGATIVE) mg/dL Urine Blood (NEGATIVE) Urine Nitrate (NEGATIVE) Urine Bilirubin (NEGATIVE) Urine Urobilinogen (<1 E.U./dL) E.U./dL Ur Leukocyte Esterase (NEGATIVE) Thomas/uL Urine RBC (0-2) /hpf Urine WBC (0-6) /hpf Ur Epithelial Cells (0-5) /hpf Urine Other /hpf 08/22/18 08/22/18 08/22/18 Range/Units 19:44 18:36 15:28 WBC (4.5-11.0) 10^3/uL RBC (3.5-6.1) 10^6/uL Hgb (12.0-16.0) g/dL Hct (36.0-48.0) % MCV (80.0-105.0) fl MCH (25.0-35.0) pg MCHC (31.0-37.0) g/dl RDW (11.5-14.5) % Plt Count (120.0-450.0) 10^3/uL MPV (7.0-11.0) fl Gran % (50.0-68.0) % Lymph % (Auto) (22.0-35.0) % [place] % (Auto) (1.0-6.0) % Eos % (Auto) (1.5-5.0) % Baso % (Auto) (0.0-3.0) % Gran # (1.4-6.5) Lymph # (Auto) (1.2-3.4) [place] # (Auto) (0.1-0.6) Eos # (Auto) (0.0-0.7) Baso # (Auto) (0.0-2.0) K/mm3 PT (9.4-12.5) SECONDS INR APTT (25.1-36.5) Seconds pCO2 (35-45) mm/Hg pO2 50 (80-100) mm/Hg HCO3 (21-28) mmol/L ABG pH (7.35-7.45) ABG Total CO2 (22-28) mmol.L ABG O2 Saturation (95-98) % ABG Base Excess (-2.0-3.0) mmol/L ABG Potassium (3.6-5.2) mmol/L VBG pH 7.46 H (7.32-7.43) VBG pCO2 42.0 (40-60) VBG HCO3 29.9 H (21-28) mmol/l VBG Total CO2 31.2 H (22-28) mmol.L VBG O2 Sat (Calc) 89.6 H (40-65) % VBG Base Excess 5.4 H (0.0-2.0) mmol/L VBG Potassium 3.8 (3.6-5.2) mmol/L Glucose 196 H (65-105) mg/dl Lactate 2.0 (0.7-2.1) mmol/L FiO2 21.0 % Sodium 141.0 (132-148) mmol/L Potassium (3.6-5.0) mmol/L Chloride 105.0 (98-107) mmol/L Carbon Dioxide (21-33) mmol/L Anion Gap (10-20) BUN (7-21) mg/dL Creatinine (0.7-1.2) mg/dl Est GFR ( Amer) Est GFR (Non-Af Amer) POC Glucose (mg/dL) (65-110) mg/dL Random Glucose (70-110) mg/dL Calcium (8.4-10.5) mg/dL Phosphorus (2.5-4.5) mg/dL Magnesium (1.7-2.2) mg/dL Total Bilirubin (0.2-1.3) mg/dL AST (14-36) U/L ALT (7-56) U/L Alkaline Phosphatase (38-126) U/L Ammonia < 9 L (9-33) umol/L Total Protein (5.8-8.3) g/dL Albumin (3.0-4.8) g/dL Globulin gm/dL Albumin/Globulin Ratio (1.1-1.8) Free T4 (0.78-2.19) ng/dL TSH 3rd Generation (0.46-4.68) mIU/mL Arterial Blood Potassium (3.6-5.2) mmol/L Venous Blood Potassium 3.8 (3.6-5.2) mmol/L Urine Color Light yellow (YELLOW) Urine Appearance Clear (CLEAR) Urine pH 6.0 (4.7-8.0) Ur Specific [place] 1.010 (1.005-1.035) Urine Protein Negative (<30 mg/dL) mg/dL Urine Glucose (UA) Negative (NEGATIVE) mg/dL Urine Ketones Negative (NEGATIVE) mg/dL Urine Blood Negative (NEGATIVE) Urine Nitrate Negative (NEGATIVE) Urine Bilirubin Negative (NEGATIVE) Urine Urobilinogen 0.2 (<1 E.U./dL) E.U./dL Ur Leukocyte Esterase Moderate H (NEGATIVE) Thomas/uL Urine RBC Negative (0-2) /hpf Urine WBC 2 - 5 (0-6) /hpf Ur Epithelial Cells None (0-5) /hpf Urine Other Uyeast /hpf 08/22/18 08/22/18 08/22/18 Range/Units 11:31 11:06 10:59 WBC (4.5-11.0) 10^3/uL RBC (3.5-6.1) 10^6/uL Hgb (12.0-16.0) g/dL Hct (36.0-48.0) % MCV (80.0-105.0) fl MCH (25.0-35.0) pg MCHC (31.0-37.0) g/dl RDW (11.5-14.5) % Plt Count (120.0-450.0) 10^3/uL MPV (7.0-11.0) fl Gran % (50.0-68.0) % Lymph % (Auto) (22.0-35.0) % [place] % (Auto) (1.0-6.0) % Eos % (Auto) (1.5-5.0) % Baso % (Auto) (0.0-3.0) % Gran # (1.4-6.5) Lymph # (Auto) (1.2-3.4) [place] # (Auto) (0.1-0.6) Eos # (Auto) (0.0-0.7) Baso # (Auto) (0.0-2.0) K/mm3 PT 12.5 (9.4-12.5) SECONDS INR 1.09 APTT 31.0 (25.1-36.5) Seconds pCO2 (35-45) mm/Hg pO2 (80-100) mm/Hg HCO3 (21-28) mmol/L ABG pH (7.35-7.45) ABG Total CO2 (22-28) mmol.L ABG O2 Saturation (95-98) % ABG Base Excess (-2.0-3.0) mmol/L ABG Potassium (3.6-5.2) mmol/L VBG pH (7.32-7.43) VBG pCO2 (40-60) VBG HCO3 (21-28) mmol/l VBG Total CO2 (22-28) mmol.L VBG O2 Sat (Calc) (40-65) % VBG Base Excess (0.0-2.0) mmol/L VBG Potassium (3.6-5.2) mmol/L Glucose (65-105) mg/dl Lactate (0.7-2.1) mmol/L FiO2 % Sodium (132-148) mmol/L Potassium (3.6-5.0) mmol/L Chloride (98-107) mmol/L Carbon Dioxide (21-33) mmol/L Anion Gap (10-20) BUN (7-21) mg/dL Creatinine (0.7-1.2) mg/dl Est GFR ( Amer) Est GFR (Non-Af Amer) POC Glucose (mg/dL) 77 (65-110) mg/dL Random Glucose (70-110) mg/dL Calcium (8.4-10.5) mg/dL Phosphorus 4.6 H (2.5-4.5) mg/dL Magnesium 2.1 (1.7-2.2) mg/dL Total Bilirubin (0.2-1.3) mg/dL AST (14-36) U/L ALT (7-56) U/L Alkaline Phosphatase (38-126) U/L Ammonia (9-33) umol/L Total Protein (5.8-8.3) g/dL Albumin (3.0-4.8) g/dL Globulin gm/dL Albumin/Globulin Ratio (1.1-1.8) Free T4 (0.78-2.19) ng/dL TSH 3rd Generation (0.46-4.68) mIU/mL Arterial Blood Potassium (3.6-5.2) mmol/L Venous Blood Potassium (3.6-5.2) mmol/L Urine Color (YELLOW) Urine Appearance (CLEAR) Urine pH (4.7-8.0) Ur Specific [place] (1.005-1.035) Urine Protein (<30 mg/dL) mg/dL Urine Glucose (UA) (NEGATIVE) mg/dL Urine Ketones (NEGATIVE) mg/dL Urine Blood (NEGATIVE) Urine Nitrate (NEGATIVE) Urine Bilirubin (NEGATIVE) Urine Urobilinogen (<1 E.U./dL) E.U./dL Ur Leukocyte Esterase (NEGATIVE) Thomas/uL Urine RBC (0-2) /hpf Urine WBC (0-6) /hpf Ur Epithelial Cells (0-5) /hpf Urine Other /hpf 08/22/18 08/22/18 08/22/18 Range/Units 10:34 10:33 07:20 WBC (4.5-11.0) 10^3/uL RBC (3.5-6.1) 10^6/uL Hgb (12.0-16.0) g/dL Hct (36.0-48.0) % MCV (80.0-105.0) fl MCH (25.0-35.0) pg MCHC (31.0-37.0) g/dl RDW (11.5-14.5) % Plt Count (120.0-450.0) 10^3/uL MPV (7.0-11.0) fl Gran % (50.0-68.0) % Lymph % (Auto) (22.0-35.0) % [place] % (Auto) (1.0-6.0) % Eos % (Auto) (1.5-5.0) % Baso % (Auto) (0.0-3.0) % Gran # (1.4-6.5) Lymph # (Auto) (1.2-3.4) [place] # (Auto) (0.1-0.6) Eos # (Auto) (0.0-0.7) Baso # (Auto) (0.0-2.0) K/mm3 PT (9.4-12.5) SECONDS INR APTT (25.1-36.5) Seconds pCO2 47 H (35-45) mm/Hg pO2 85.0 (80-100) mm/Hg HCO3 29.8 H (21-28) mmol/L ABG pH 7.41 (7.35-7.45) ABG Total CO2 31.2 H (22-28) mmol.L ABG O2 Saturation 98.4 H (95-98) % ABG Base Excess 4.3 H (-2.0-3.0) mmol/L ABG Potassium 3.5 L (3.6-5.2) mmol/L VBG pH (7.32-7.43) VBG pCO2 (40-60) VBG HCO3 (21-28) mmol/l VBG Total CO2 (22-28) mmol.L VBG O2 Sat (Calc) (40-65) % VBG Base Excess (0.0-2.0) mmol/L VBG Potassium (3.6-5.2) mmol/L Glucose 79 (65-105) mg/dl Lactate 0.5 L (0.7-2.1) mmol/L FiO2 21.0 % Sodium 141.0 139 (132-148) mmol/L Potassium 3.9 (3.6-5.0) mmol/L Chloride 107.0 103 (98-107) mmol/L Carbon Dioxide 33 (21-33) mmol/L Anion Gap 7 L (10-20) BUN 18 (7-21) mg/dL Creatinine 0.7 (0.7-1.2) mg/dl Est GFR ( Amer) > 60 Est GFR (Non-Af Amer) > 60 POC Glucose (mg/dL) 76 (65-110) mg/dL Random Glucose 80 (70-110) mg/dL Calcium 10.0 (8.4-10.5) mg/dL Phosphorus (2.5-4.5) mg/dL Magnesium (1.7-2.2) mg/dL Total Bilirubin 0.2 (0.2-1.3) mg/dL AST 21 (14-36) U/L ALT 25 (7-56) U/L Alkaline Phosphatase 84 (38-126) U/L Ammonia (9-33) umol/L Total Protein 6.6 (5.8-8.3) g/dL Albumin 3.3 (3.0-4.8) g/dL Globulin 3.2 gm/dL Albumin/Globulin Ratio 1.0 L (1.1-1.8) Free T4 (0.78-2.19) ng/dL TSH 3rd Generation (0.46-4.68) mIU/mL Arterial Blood Potassium 3.5 L (3.6-5.2) mmol/L Venous Blood Potassium (3.6-5.2) mmol/L Urine Color (YELLOW) Urine Appearance (CLEAR) Urine pH (4.7-8.0) Ur Specific [place] (1.005-1.035) Urine Protein (<30 mg/dL) mg/dL Urine Glucose (UA) (NEGATIVE) mg/dL Urine Ketones (NEGATIVE) mg/dL Urine Blood (NEGATIVE) Urine Nitrate (NEGATIVE) Urine Bilirubin (NEGATIVE) Urine Urobilinogen (<1 E.U./dL) E.U./dL Ur Leukocyte Esterase (NEGATIVE) Thomas/uL Urine RBC (0-2) /hpf Urine WBC (0-6) /hpf Ur Epithelial Cells (0-5) /hpf Urine Other /hpf 08/22/18 Range/Units 07:20 WBC 11.8 H (4.5-11.0) 10^3/uL RBC 3.18 L (3.5-6.1) 10^6/uL Hgb 9.9 L (12.0-16.0) g/dL Hct 30.9 L (36.0-48.0) % MCV 97.2 (80.0-105.0) fl MCH 31.1 (25.0-35.0) pg MCHC 32.0 (31.0-37.0) g/dl RDW 14.9 H (11.5-14.5) % Plt Count 434 (120.0-450.0) 10^3/uL MPV 9.8 (7.0-11.0) fl Gran % (50.0-68.0) % Lymph % (Auto) (22.0-35.0) % [place] % (Auto) (1.0-6.0) % Eos % (Auto) (1.5-5.0) % Baso % (Auto) (0.0-3.0) % Gran # (1.4-6.5) Lymph # (Auto) (1.2-3.4) [place] # (Auto) (0.1-0.6) Eos # (Auto) (0.0-0.7) Baso # (Auto) (0.0-2.0) K/mm3 PT (9.4-12.5) SECONDS INR APTT (25.1-36.5) Seconds pCO2 (35-45) mm/Hg pO2 (80-100) mm/Hg HCO3 (21-28) mmol/L ABG pH (7.35-7.45) ABG Total CO2 (22-28) mmol.L ABG O2 Saturation (95-98) % ABG Base Excess (-2.0-3.0) mmol/L ABG Potassium (3.6-5.2) mmol/L VBG pH (7.32-7.43) VBG pCO2 (40-60) VBG HCO3 (21-28) mmol/l VBG Total CO2 (22-28) mmol.L VBG O2 Sat (Calc) (40-65) % VBG Base Excess (0.0-2.0) mmol/L VBG Potassium (3.6-5.2) mmol/L Glucose (65-105) mg/dl Lactate (0.7-2.1) mmol/L FiO2 % Sodium (132-148) mmol/L Potassium (3.6-5.0) mmol/L Chloride (98-107) mmol/L Carbon Dioxide (21-33) mmol/L Anion Gap (10-20) BUN (7-21) mg/dL Creatinine (0.7-1.2) mg/dl Est GFR ( Amer) Est GFR (Non-Af Amer) POC Glucose (mg/dL) (65-110) mg/dL Random Glucose (70-110) mg/dL Calcium (8.4-10.5) mg/dL Phosphorus (2.5-4.5) mg/dL Magnesium (1.7-2.2) mg/dL Total Bilirubin (0.2-1.3) mg/dL AST (14-36) U/L ALT (7-56) U/L Alkaline Phosphatase (38-126) U/L Ammonia (9-33) umol/L Total Protein (5.8-8.3) g/dL Albumin (3.0-4.8) g/dL Globulin gm/dL Albumin/Globulin Ratio (1.1-1.8) Free T4 (0.78-2.19) ng/dL TSH 3rd Generation (0.46-4.68) mIU/mL Arterial Blood Potassium (3.6-5.2) mmol/L Venous Blood Potassium (3.6-5.2) mmol/L Urine Color (YELLOW) Urine Appearance (CLEAR) Urine pH (4.7-8.0) Ur Specific [place] (1.005-1.035) Urine Protein (<30 mg/dL) mg/dL Urine Glucose (UA) (NEGATIVE) mg/dL Urine Ketones (NEGATIVE) mg/dL Urine Blood (NEGATIVE) Urine Nitrate (NEGATIVE) Urine Bilirubin (NEGATIVE) Urine Urobilinogen (<1 E.U./dL) E.U./dL Ur Leukocyte Esterase (NEGATIVE) Thomas/uL Urine RBC (0-2) /hpf Urine WBC (0-6) /hpf Ur Epithelial Cells (0-5) /hpf Urine Other /hpf Laboratory Results - last 24 hr 08/22/18 08/22/18 08/22/18 07:20 07:20 10:33 WBC 11.8 H RBC 3.18 L Hgb 9.9 L Hct 30.9 L MCV 97.2 MCH 31.1 MCHC 32.0 RDW 14.9 H Plt Count 434 MPV 9.8 Gran % Lymph % (Auto) [place] % (Auto) Eos % (Auto) Baso % (Auto) Gran # Lymph # (Auto) [place] # (Auto) Eos # (Auto) Baso # (Auto) PT INR APTT pCO2 pO2 HCO3 ABG pH ABG Total CO2 ABG O2 Saturation ABG Base Excess ABG Potassium VBG pH VBG pCO2 VBG HCO3 VBG Total CO2 VBG O2 Sat (Calc) VBG Base Excess VBG Potassium Glucose Lactate FiO2 Sodium 139 Potassium 3.9 Chloride 103 Carbon Dioxide 33 Anion Gap 7 L BUN 18 Creatinine 0.7 Est GFR ( Amer) > 60 Est GFR (Non-Af Amer) > 60 POC Glucose (mg/dL) 76 Random Glucose 80 Calcium 10.0 Phosphorus Magnesium Total Bilirubin 0.2 AST 21 ALT 25 Alkaline Phosphatase 84 Ammonia Total Protein 6.6 Albumin 3.3 Globulin 3.2 Albumin/Globulin Ratio 1.0 L Free T4 TSH 3rd Generation Arterial Blood Potassium Venous Blood Potassium Urine Color Urine Appearance Urine pH Ur Specific [place] Urine Protein Urine Glucose (UA) Urine Ketones Urine Blood Urine Nitrate Urine Bilirubin Urine Urobilinogen Ur Leukocyte Esterase Urine RBC Urine WBC Ur Epithelial Cells Urine Other 08/22/18 08/22/18 08/22/18 10:34 10:59 11:06 WBC RBC Hgb Hct MCV MCH MCHC RDW Plt Count MPV Gran % Lymph % (Auto) [place] % (Auto) Eos % (Auto) Baso % (Auto) Gran # Lymph # (Auto) [place] # (Auto) Eos # (Auto) Baso # (Auto) PT INR APTT pCO2 47 H pO2 85.0 HCO3 29.8 H ABG pH 7.41 ABG Total CO2 31.2 H ABG O2 Saturation 98.4 H ABG Base Excess 4.3 H ABG Potassium 3.5 L VBG pH VBG pCO2 VBG HCO3 VBG Total CO2 VBG O2 Sat (Calc) VBG Base Excess VBG Potassium Glucose 79 Lactate 0.5 L FiO2 21.0 Sodium 141.0 Potassium Chloride 107.0 Carbon Dioxide Anion Gap BUN Creatinine Est GFR ( Amer) Est GFR (Non-Af Amer) POC Glucose (mg/dL) 77 Random Glucose Calcium Phosphorus 4.6 H Magnesium 2.1 Total Bilirubin AST ALT Alkaline Phosphatase Ammonia Total Protein Albumin Globulin Albumin/Globulin Ratio Free T4 TSH 3rd Generation Arterial Blood Potassium 3.5 L Venous Blood Potassium Urine Color Urine Appearance Urine pH Ur Specific [place] Urine Protein Urine Glucose (UA) Urine Ketones Urine Blood Urine Nitrate Urine Bilirubin Urine Urobilinogen Ur Leukocyte Esterase Urine RBC Urine WBC Ur Epithelial Cells Urine Other 08/22/18 08/22/18 08/22/18 11:31 15:28 18:36 WBC RBC Hgb Hct MCV MCH MCHC RDW Plt Count MPV Gran % Lymph % (Auto) [place] % (Auto) Eos % (Auto) Baso % (Auto) Gran # Lymph # (Auto) [place] # (Auto) Eos # (Auto) Baso # (Auto) PT 12.5 INR 1.09 APTT 31.0 pCO2 pO2 HCO3 ABG pH ABG Total CO2 ABG O2 Saturation ABG Base Excess ABG Potassium VBG pH VBG pCO2 VBG HCO3 VBG Total CO2 VBG O2 Sat (Calc) VBG Base Excess VBG Potassium Glucose Lactate FiO2 Sodium Potassium Chloride Carbon Dioxide Anion Gap BUN Creatinine Est GFR ( Amer) Est GFR (Non-Af Amer) POC Glucose (mg/dL) Random Glucose Calcium Phosphorus Magnesium Total Bilirubin AST ALT Alkaline Phosphatase Ammonia < 9 L Total Protein Albumin Globulin Albumin/Globulin Ratio Free T4 TSH 3rd Generation Arterial Blood Potassium Venous Blood Potassium Urine Color Light yellow Urine Appearance Clear Urine pH 6.0 Ur Specific [place] 1.010 Urine Protein Negative Urine Glucose (UA) Negative Urine Ketones Negative Urine Blood Negative Urine Nitrate Negative Urine Bilirubin Negative Urine Urobilinogen 0.2 Ur Leukocyte Esterase Moderate H Urine RBC Negative Urine WBC 2 - 5 Ur Epithelial Cells None Urine Other Uyeast 08/22/18 08/22/18 08/22/18 19:44 23:05 23:10 WBC RBC Hgb Hct MCV MCH MCHC RDW Plt Count MPV Gran % Lymph % (Auto) [place] % (Auto) Eos % (Auto) Baso % (Auto) Gran # Lymph # (Auto) [place] # (Auto) Eos # (Auto) Baso # (Auto) PT INR APTT pCO2 pO2 50 HCO3 ABG pH ABG Total CO2 ABG O2 Saturation ABG Base Excess ABG Potassium VBG pH 7.46 H VBG pCO2 42.0 VBG HCO3 29.9 H VBG Total CO2 31.2 H VBG O2 Sat (Calc) 89.6 H VBG Base Excess 5.4 H VBG Potassium 3.8 Glucose 196 H Lactate 2.0 FiO2 21.0 Sodium 141.0 139 Potassium 4.4 Chloride 105.0 105 Carbon Dioxide 29 Anion Gap 10 BUN 18 Creatinine 0.8 Est GFR ( Amer) > 60 Est GFR (Non-Af Amer) > 60 POC Glucose (mg/dL) 150 H Random Glucose 147 H Calcium 9.1 Phosphorus Magnesium Total Bilirubin AST ALT Alkaline Phosphatase Ammonia Total Protein Albumin Globulin Albumin/Globulin Ratio Free T4 TSH 3rd Generation Arterial Blood Potassium Venous Blood Potassium 3.8 Urine Color Urine Appearance Urine pH Ur Specific [place] Urine Protein Urine Glucose (UA) Urine Ketones Urine Blood Urine Nitrate Urine Bilirubin Urine Urobilinogen Ur Leukocyte Esterase Urine RBC Urine WBC Ur Epithelial Cells Urine Other 08/22/18 08/23/1808/23/19 23:55 05:00 05:00 WBC 13.7 H RBC 2.97 L Hgb 9.2 L Hct 28.7 L MCV 96.6 MCH 31.0 MCHC 32.1 RDW 15.2 H Plt Count 425 MPV 9.9 Gran % 81.1 H Lymph % (Auto) 14.3 L [place] % (Auto) 4.4 Eos % (Auto) 0.1 L Baso % (Auto) 0.1 Gran # 11.14 H Lymph # (Auto) 2.0 [place] # (Auto) 0.6 Eos # (Auto) 0.0 Baso # (Auto) 0.01 PT INR APTT pCO2 pO2 52 HCO3 ABG pH ABG Total CO2 ABG O2 Saturation ABG Base Excess ABG Potassium VBG pH 7.49 H VBG pCO2 38.0 L VBG HCO3 29.0 H VBG Total CO2 30.2 H VBG O2 Sat (Calc) 90.7 H VBG Base Excess 5.4 H VBG Potassium 4.2 Glucose 159 H Lactate 1.9 FiO2 21.0 Sodium 139.0 139 Potassium 3.7 Chloride 106.0 107 Carbon Dioxide 28 Anion Gap 8 L BUN 15 Creatinine 0.7 Est GFR ( Amer) > 60 Est GFR (Non-Af Amer) > 60 POC Glucose (mg/dL) Random Glucose 137 H Calcium 9.1 Phosphorus 3.7 Magnesium 1.9 Total Bilirubin 0.1 L AST 20 ALT 19 Alkaline Phosphatase 77 Ammonia Total Protein 6.1 Albumin 3.1 Globulin 3.0 Albumin/Globulin Ratio 1.0 L Free T4 TSH 3rd Generation Arterial Blood Potassium Venous Blood Potassium 4.2 Urine Color Urine Appearance Urine pH Ur Specific [place] Urine Protein Urine Glucose (UA) Urine Ketones Urine Blood Urine Nitrate Urine Bilirubin Urine Urobilinogen Ur Leukocyte Esterase Urine RBC Urine WBC Ur Epithelial Cells Urine Other 08/23/18 05:00 WBC RBC Hgb Hct MCV MCH MCHC RDW Plt Count MPV Gran % Lymph % (Auto) [place] % (Auto) Eos % (Auto) Baso % (Auto) Gran # Lymph # (Auto) [place] # (Auto) Eos # (Auto) Baso # (Auto) PT INR APTT pCO2 pO2 HCO3 ABG pH ABG Total CO2 ABG O2 Saturation ABG Base Excess ABG Potassium VBG pH VBG pCO2 VBG HCO3 VBG Total CO2 VBG O2 Sat (Calc) VBG Base Excess VBG Potassium Glucose Lactate FiO2 Sodium Potassium Chloride Carbon Dioxide Anion Gap BUN Creatinine Est GFR ( Amer) Est GFR (Non-Af Amer) POC Glucose (mg/dL) Random Glucose Calcium Phosphorus Magnesium Total Bilirubin AST ALT Alkaline Phosphatase Ammonia Total Protein Albumin Globulin Albumin/Globulin Ratio Free T4 1.22 TSH 3rd Generation 1.91 Arterial Blood Potassium Venous Blood Potassium Urine Color Urine Appearance Urine pH Ur Specific [place] Urine Protein Urine Glucose (UA) Urine Ketones Urine Blood Urine Nitrate Urine Bilirubin Urine Urobilinogen Ur Leukocyte Esterase Urine RBC Urine WBC Ur Epithelial Cells Urine Other Radiology Impressions: Radiology Impressions Head CT 08/22/18 07:05 IMPRESSION: No acute intracranial findings Cervical Spine X-Ray 08/22/18 07:12 IMPRESSION: Normal cervical spine radiographs Thoracic Spine X-Ray 08/22/18 07:12 IMPRESSION: Normal radiographs of the thoracic spine. Chest X-Ray 08/22/18 10:05 IMPRESSION: Minimal patchy infiltrate in the right lower lobe Brain MRI 08/22/18 13:01 IMPRESSION: Severely limited by patient motion artifact. No gross abnormality. Fingerstick Blood Sugar Results: 150 Review of Systems - Review of Systems Review of Systems: 12 point ROS unable to be obtained due to clinical condition of confusion. 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 Patient fell yesterday morning. Confused currently. Afebrile. Neuro 08/22/18 CT head shows No mass effect or edema. No atrophy or chronic microvascular ischemic changes. No intracranial hemmorhage. 08/22/18 cervical xray shows normal cervical spine radiographs 08/22/18 Brain MRI- no gross abnormality noted - kirby huggkirby for hypothermia - Neuro on consult - Dr. Hamilton. Further recs appreciated. Transient cerebral hypoperfusion from low BP and hypothermia - Ativan on hold - Continue 5 mg Haldol PO daily. Haldol 2 mg IVP q4 daily, Seroquel 2 mg PO, Neurontin 100 mg TID - AAOx2, no FND, moving extremities past midline. Fall precautions. - Monitor neuro status. 1:1 sitter - Reorient patient as necessary. Pulm - 08/22/18 CXR with minimally questionable RML infiltrate, Normal cardiac size. No pulmonary vascular congestion. - Lactate neno from 0.5 to 2.0, then 1.9 overnight - procal pending - supp o2 as needed, hold off further sedatives, monitor resp status, currently protecting airway - stress dose steroids, Solu-cortef 50mg Q6hr IV - No signs of respiratory distress. - Patient is saturating well on room air. - Maintain O2 saturation>92%. - Elevate bed to 30 degrees Cardio - s/p 3 L IVF yesterday, IVF discontinued, tolerating diet. - RRR, hypotensive, no signs of HD compromise - Maintain MAP>65. - Monitor for S/S Hem/Onc -H/H dropping to 9.2/28.7. No signs of bleeding. Likely dilutonal. -No signs of HD compromise. -Continue monitoring H/H GI/Endo - Fevers overnight, resolved - Tolerating diet - Accuchecks Nephro - Catheter in place, strict Is and Os-Good urine output - Continue monitoring. - Replete electrolytes as needed. - Maintain euvolemia. ID - On Consult - Dr. Boudreaux. Recs appreciated - Broad spectrum Abx: Vanco, Merrem - UCx, BCx, procal pending - Afebrile, no leukocytosis - Monitor for signs and symptoms of infection. MSK - 08/22/18 thoracolumbar x-ray after fall showed Normal radiographs of the thoracic spine. - Verruca left heel - stable, no sign of infection, cont local care MWF, multipodous boots - Dr. Ramírez -podiatry on consult - Pain control with Tylenol q6 DVT ppx - Heparin 5000 q8 - SCDs in place Dispo: Transfer to telemetry. Patient seen, case reviewed and plan approved by Dr. Max Dover. John Schmidt, PGY-1 <Jonny Dover - Last Filed: 08/23/18 17:13> CCU Objective - Vital Signs / Intake & Output Vital Signs (Last 4 hours): Vital Signs Pulse 08/23/18 14:00 118 H Intake and Output (Last 8hrs): Intake & Output 08/23/18 08/23/18 08/23/18 06:59 14:59 22:59 Intake Total 2090 Output Total 550 Balance 1540 Weight 48.988 kg Intake: IV 1850 Right Forearm 1850 Oral 240 Output: Urine 550 2-way Urethral 550 Other: # Bowel Movements 1 - Medications Active Medications: Active Medications Generic Name Dose Route Start Last Admin Trade Name Freq PRN Reason Stop Dose Admin Acetaminophen 650 mg 08/11/18 09:16 08/22/18 23:23 Tylenol 325mg Tab PO 650 mg Q4H PRN Administration Pain, Mild (1-3) Collagenase 0 gm 08/09/18 10:00 08/23/18 09:41 Santyl TOP 1 appl DAILY MELY Administration Gabapentin 100 mg 08/17/18 14:00 08/23/18 14:44 Neurontin PO 100 mg TID MELY Administration Haloperidol 5 mg 08/22/18 13:30 08/23/18 14:11 Haldol PO 5 mg DAILY MELY Administration Protocol Haloperidol Lactate 2 mg 08/22/18 13:18 08/23/18 00:20 Haldol IVP 2 mg Q4 PRN Administration Agitation Protocol Heparin Sodium (Porcine) 5,000 units 08/23/18 14:00 08/23/18 14:44 Heparin SC 5,000 units Q8 MELY Administration Protocol Hydrocortisone Sodium Succinate 50 mg 08/22/18 12:00 08/23/18 14:11 Solu-Cortef IVP 50 mg Q6 MELY Administration Meropenem 1 gm in 50 mls @ 100 mls/hr 08/22/18 22:00 08/23/18 14:44 Merrem Iv 1 Gm Premix IVPB 100 mls/hr Q8 MELY Administration Protocol Vancomycin HCl 1 gm in 250 mls @ 167 mls/hr 08/22/18 22:00 08/22/18 21:53 Vancomycin 1gm IVPB 167 mls/hr Q12H MELY Administration Protocol Lorazepam 1 mg 08/15/18 12:19 08/22/18 07:30 Ativan IVP 1 mg Q6H PRN Administration Anxiety Protocol Nicotine 1 patch 08/22/18 03:45 08/23/18 09:42 Nicoderm Cq TD 1 patch DAILY MELY Administration Nystatin 0 gm 08/10/18 18:00 08/23/18 09:44 Nystop Topical Powder TOP 1 u BID MELY Administration Quetiapine Fumarate 25 mg 08/15/18 22:00 08/22/18 21:46 Seroquel PO 25 mg HS MELY Administration Protocol Thiamine HCl 100 mg 08/12/18 11:30 08/23/18 09:41 Vitamin B1 Tab PO 100 mg DAILY MELY Administration - Patient Studies Lab Studies: Microbiology Studies 08/22/18 12:30 MRSA Culture (Admit) - Final Naris MRSA NOT DETECTED 08/21/18 12:45 Urine Culture - Final Urine,Catheterized No Growth (<1,000 CFU/ML) 08/22/18 10:49 Blood Culture - Preliminary Blood NO GROWTH AFTER 24 HOURS 08/22/18 10:15 Blood Culture - Preliminary Blood NO GROWTH AFTER 24 HOURS 08/19/18 10:00 Blood Culture - Preliminary Blood-Venous NO GROWTH AFTER 4 DAYS 08/19/18 10:15 Blood Culture - Preliminary Blood-Venous NO GROWTH AFTER 4 DAYS Lab Studies 08/23/18 08/23/18 08/23/18 Range/Units 08:08 05:00 05:00 WBC (4.5-11.0) 10^3/uL RBC (3.5-6.1) 10^6/uL Hgb (12.0-16.0) g/dL Hct (36.0-48.0) % MCV (80.0-105.0) fl MCH (25.0-35.0) pg MCHC (31.0-37.0) g/dl RDW (11.5-14.5) % Plt Count (120.0-450.0) 10^3/uL MPV (7.0-11.0) fl Gran % (50.0-68.0) % Lymph % (Auto) (22.0-35.0) % [place] % (Auto) (1.0-6.0) % Eos % (Auto) (1.5-5.0) % Baso % (Auto) (0.0-3.0) % Gran # (1.4-6.5) Lymph # (Auto) (1.2-3.4) [place] # (Auto) (0.1-0.6) Eos # (Auto) (0.0-0.7) Baso # (Auto) (0.0-2.0) K/mm3 pCO2 29 L (35-45) mm/Hg pO2 103.0 H (30-55) mm/Hg HCO3 25.4 (21-28) mmol/L ABG pH 7.55 H (7.35-7.45) ABG Total CO2 26.3 (22-28) mmol.L ABG O2 Saturation 99.4 H (95-98) % ABG Base Excess 3.8 H (-2.0-3.0) mmol/L ABG Potassium 3.1 L (3.6-5.2) mmol/L VBG pH (7.32-7.43) VBG pCO2 (40-60) VBG HCO3 (21-28) mmol/l VBG Total CO2 (22-28) mmol.L VBG O2 Sat (Calc) (40-65) % VBG Base Excess (0.0-2.0) mmol/L VBG Potassium (3.6-5.2) mmol/L Sodium 142.0 139 (132-148) mmol/L Chloride 111.0 H 107 (98-107) mmol/L Glucose 122 H (65-105) mg/dl Lactate 0.7 (0.7-2.1) mmol/L FiO2 21.0 % Potassium 3.7 (3.6-5.0) mmol/L Carbon Dioxide 28 (21-33) mmol/L Anion Gap 8 L (10-20) BUN 15 (7-21) mg/dL Creatinine 0.7 (0.7-1.2) mg/dl Est GFR ( Amer) > 60 Est GFR (Non-Af Amer) > 60 POC Glucose (mg/dL) (65-110) mg/dL Random Glucose 137 H (70-110) mg/dL Calcium 9.1 (8.4-10.5) mg/dL Phosphorus 3.7 (2.5-4.5) mg/dL Magnesium 1.9 (1.7-2.2) mg/dL Total Bilirubin 0.1 L (0.2-1.3) mg/dL AST 20 (14-36) U/L ALT 19 (7-56) U/L Alkaline Phosphatase 77 (38-126) U/L Total Protein 6.1 (5.8-8.3) g/dL Albumin 3.1 (3.0-4.8) g/dL Globulin 3.0 gm/dL Albumin/Globulin Ratio 1.0 L (1.1-1.8) Free T4 1.22 (0.78-2.19) ng/dL TSH 3rd Generation 1.91 (0.46-4.68) mIU/mL Arterial Blood Potassium 3.1 L (3.6-5.2) mmol/L Venous Blood Potassium (3.6-5.2) mmol/L Urine Color (YELLOW) Urine Appearance (CLEAR) Urine pH (4.7-8.0) Ur Specific [place] (1.005-1.035) Urine Protein (<30 mg/dL) mg/dL Urine Glucose (UA) (NEGATIVE) mg/dL Urine Ketones (NEGATIVE) mg/dL Urine Blood (NEGATIVE) Urine Nitrate (NEGATIVE) Urine Bilirubin (NEGATIVE) Urine Urobilinogen (<1 E.U./dL) E.U./dL Ur Leukocyte Esterase (NEGATIVE) Thomas/uL Urine RBC (0-2) /hpf Urine WBC (0-6) /hpf Ur Epithelial Cells (0-5) /hpf Urine Other /hpf 08/23/18 08/22/18 08/22/18 Range/Units 05:00 23:55 23:10 WBC 13.7 H (4.5-11.0) 10^3/uL RBC 2.97 L (3.5-6.1) 10^6/uL Hgb 9.2 L (12.0-16.0) g/dL Hct 28.7 L (36.0-48.0) % MCV 96.6 (80.0-105.0) fl MCH 31.0 (25.0-35.0) pg MCHC 32.1 (31.0-37.0) g/dl RDW 15.2 H (11.5-14.5) % Plt Count 425 (120.0-450.0) 10^3/uL MPV 9.9 (7.0-11.0) fl Gran % 81.1 H (50.0-68.0) % Lymph % (Auto) 14.3 L (22.0-35.0) % [place] % (Auto) 4.4 (1.0-6.0) % Eos % (Auto) 0.1 L (1.5-5.0) % Baso % (Auto) 0.1 (0.0-3.0) % Gran # 11.14 H (1.4-6.5) Lymph # (Auto) 2.0 (1.2-3.4) [place] # (Auto) 0.6 (0.1-0.6) Eos # (Auto) 0.0 (0.0-0.7) Baso # (Auto) 0.01 (0.0-2.0) K/mm3 pCO2 (35-45) mm/Hg pO2 52 (30-55) mm/Hg HCO3 (21-28) mmol/L ABG pH (7.35-7.45) ABG Total CO2 (22-28) mmol.L ABG O2 Saturation (95-98) % ABG Base Excess (-2.0-3.0) mmol/L ABG Potassium (3.6-5.2) mmol/L VBG pH 7.49 H (7.32-7.43) VBG pCO2 38.0 L (40-60) VBG HCO3 29.0 H (21-28) mmol/l VBG Total CO2 30.2 H (22-28) mmol.L VBG O2 Sat (Calc) 90.7 H (40-65) % VBG Base Excess 5.4 H (0.0-2.0) mmol/L VBG Potassium 4.2 (3.6-5.2) mmol/L Sodium 139.0 139 (132-148) mmol/L Chloride 106.0 105 (98-107) mmol/L Glucose 159 H (65-105) mg/dl Lactate 1.9 (0.7-2.1) mmol/L FiO2 21.0 % Potassium 4.4 (3.6-5.0) mmol/L Carbon Dioxide 29 (21-33) mmol/L Anion Gap 10 (10-20) BUN 18 (7-21) mg/dL Creatinine 0.8 (0.7-1.2) mg/dl Est GFR ( Amer) > 60 Est GFR (Non-Af Amer) > 60 POC Glucose (mg/dL) (65-110) mg/dL Random Glucose 147 H (70-110) mg/dL Calcium 9.1 (8.4-10.5) mg/dL Phosphorus (2.5-4.5) mg/dL Magnesium (1.7-2.2) mg/dL Total Bilirubin (0.2-1.3) mg/dL AST (14-36) U/L ALT (7-56) U/L Alkaline Phosphatase (38-126) U/L Total Protein (5.8-8.3) g/dL Albumin (3.0-4.8) g/dL Globulin gm/dL Albumin/Globulin Ratio (1.1-1.8) Free T4 (0.78-2.19) ng/dL TSH 3rd Generation (0.46-4.68) mIU/mL Arterial Blood Potassium (3.6-5.2) mmol/L Venous Blood Potassium 4.2 (3.6-5.2) mmol/L Urine Color (YELLOW) Urine Appearance (CLEAR) Urine pH (4.7-8.0) Ur Specific [place] (1.005-1.035) Urine Protein (<30 mg/dL) mg/dL Urine Glucose (UA) (NEGATIVE) mg/dL Urine Ketones (NEGATIVE) mg/dL Urine Blood (NEGATIVE) Urine Nitrate (NEGATIVE) Urine Bilirubin (NEGATIVE) Urine Urobilinogen (<1 E.U./dL) E.U./dL Ur Leukocyte Esterase (NEGATIVE) Thomas/uL Urine RBC (0-2) /hpf Urine WBC (0-6) /hpf Ur Epithelial Cells (0-5) /hpf Urine Other /hpf 08/22/18 08/22/18 08/22/18 Range/Units 23:05 19:44 18:36 WBC (4.5-11.0) 10^3/uL RBC (3.5-6.1) 10^6/uL Hgb (12.0-16.0) g/dL Hct (36.0-48.0) % MCV (80.0-105.0) fl MCH (25.0-35.0) pg MCHC (31.0-37.0) g/dl RDW (11.5-14.5) % Plt Count (120.0-450.0) 10^3/uL MPV (7.0-11.0) fl Gran % (50.0-68.0) % Lymph % (Auto) (22.0-35.0) % [place] % (Auto) (1.0-6.0) % Eos % (Auto) (1.5-5.0) % Baso % (Auto) (0.0-3.0) % Gran # (1.4-6.5) Lymph # (Auto) (1.2-3.4) [place] # (Auto) (0.1-0.6) Eos # (Auto) (0.0-0.7) Baso # (Auto) (0.0-2.0) K/mm3 pCO2 (35-45) mm/Hg pO2 50 (30-55) mm/Hg HCO3 (21-28) mmol/L ABG pH (7.35-7.45) ABG Total CO2 (22-28) mmol.L ABG O2 Saturation (95-98) % ABG Base Excess (-2.0-3.0) mmol/L ABG Potassium (3.6-5.2) mmol/L VBG pH 7.46 H (7.32-7.43) VBG pCO2 42.0 (40-60) VBG HCO3 29.9 H (21-28) mmol/l VBG Total CO2 31.2 H (22-28) mmol.L VBG O2 Sat (Calc) 89.6 H (40-65) % VBG Base Excess 5.4 H (0.0-2.0) mmol/L VBG Potassium 3.8 (3.6-5.2) mmol/L Sodium 141.0 (132-148) mmol/L Chloride 105.0 (98-107) mmol/L Glucose 196 H (65-105) mg/dl Lactate 2.0 (0.7-2.1) mmol/L FiO2 21.0 % Potassium (3.6-5.0) mmol/L Carbon Dioxide (21-33) mmol/L Anion Gap (10-20) BUN (7-21) mg/dL Creatinine (0.7-1.2) mg/dl Est GFR ( Amer) Est GFR (Non-Af Amer) POC Glucose (mg/dL) 150 H (65-110) mg/dL Random Glucose (70-110) mg/dL Calcium (8.4-10.5) mg/dL Phosphorus (2.5-4.5) mg/dL Magnesium (1.7-2.2) mg/dL Total Bilirubin (0.2-1.3) mg/dL AST (14-36) U/L ALT (7-56) U/L Alkaline Phosphatase (38-126) U/L Total Protein (5.8-8.3) g/dL Albumin (3.0-4.8) g/dL Globulin gm/dL Albumin/Globulin Ratio (1.1-1.8) Free T4 (0.78-2.19) ng/dL TSH 3rd Generation (0.46-4.68) mIU/mL Arterial Blood Potassium (3.6-5.2) mmol/L Venous Blood Potassium 3.8 (3.6-5.2) mmol/L Urine Color Light yellow (YELLOW) Urine Appearance Clear (CLEAR) Urine pH 6.0 (4.7-8.0) Ur Specific [place] 1.010 (1.005-1.035) Urine Protein Negative (<30 mg/dL) mg/dL Urine Glucose (UA) Negative (NEGATIVE) mg/dL Urine Ketones Negative (NEGATIVE) mg/dL Urine Blood Negative (NEGATIVE) Urine Nitrate Negative (NEGATIVE) Urine Bilirubin Negative (NEGATIVE) Urine Urobilinogen 0.2 (<1 E.U./dL) E.U./dL Ur Leukocyte Esterase Moderate H (NEGATIVE) Thomas/uL Urine RBC Negative (0-2) /hpf Urine WBC 2 - 5 (0-6) /hpf Ur Epithelial Cells None (0-5) /hpf Urine Other Uyeast /hpf Laboratory Results - last 24 hr 08/22/18 08/22/18 08/22/18 18:36 19:44 23:05 WBC RBC Hgb Hct MCV MCH MCHC RDW Plt Count MPV Gran % Lymph % (Auto) [place] % (Auto) Eos % (Auto) Baso % (Auto) Gran # Lymph # (Auto) [place] # (Auto) Eos # (Auto) Baso # (Auto) pCO2 pO2 50 HCO3 ABG pH ABG Total CO2 ABG O2 Saturation ABG Base Excess ABG Potassium VBG pH 7.46 H VBG pCO2 42.0 VBG HCO3 29.9 H VBG Total CO2 31.2 H VBG O2 Sat (Calc) 89.6 H VBG Base Excess 5.4 H VBG Potassium 3.8 Sodium 141.0 Chloride 105.0 Glucose 196 H Lactate 2.0 FiO2 21.0 Potassium Carbon Dioxide Anion Gap BUN Creatinine Est GFR ( Amer) Est GFR (Non-Af Amer) POC Glucose (mg/dL) 150 H Random Glucose Calcium Phosphorus Magnesium Total Bilirubin AST ALT Alkaline Phosphatase Total Protein Albumin Globulin Albumin/Globulin Ratio Free T4 TSH 3rd Generation Arterial Blood Potassium Venous Blood Potassium 3.8 Urine Color Light yellow Urine Appearance Clear Urine pH 6.0 Ur Specific [place] 1.010 Urine Protein Negative Urine Glucose (UA) Negative Urine Ketones Negative Urine Blood Negative Urine Nitrate Negative Urine Bilirubin Negative Urine Urobilinogen 0.2 Ur Leukocyte Esterase Moderate H Urine RBC Negative Urine WBC 2 - 5 Ur Epithelial Cells None Urine Other Uyeast 08/22/18 08/22/18 08/23/18 23:10 23:55 05:00 WBC 13.7 H RBC 2.97 L Hgb 9.2 L Hct 28.7 L MCV 96.6 MCH 31.0 MCHC 32.1 RDW 15.2 H Plt Count 425 MPV 9.9 Gran % 81.1 H Lymph % (Auto) 14.3 L [place] % (Auto) 4.4 Eos % (Auto) 0.1 L Baso % (Auto) 0.1 Gran # 11.14 H Lymph # (Auto) 2.0 [place] # (Auto) 0.6 Eos # (Auto) 0.0 Baso # (Auto) 0.01 pCO2 pO2 52 HCO3 ABG pH ABG Total CO2 ABG O2 Saturation ABG Base Excess ABG Potassium VBG pH 7.49 H VBG pCO2 38.0 L VBG HCO3 29.0 H VBG Total CO2 30.2 H VBG O2 Sat (Calc) 90.7 H VBG Base Excess 5.4 H VBG Potassium 4.2 Sodium 139 139.0 Chloride 105 106.0 Glucose 159 H Lactate 1.9 FiO2 21.0 Potassium 4.4 Carbon Dioxide 29 Anion Gap 10 BUN 18 Creatinine 0.8 Est GFR ( Amer) > 60 Est GFR (Non-Af Amer) > 60 POC Glucose (mg/dL) Random Glucose 147 H Calcium 9.1 Phosphorus Magnesium Total Bilirubin AST ALT Alkaline Phosphatase Total Protein Albumin Globulin Albumin/Globulin Ratio Free T4 TSH 3rd Generation Arterial Blood Potassium Venous Blood Potassium 4.2 Urine Color Urine Appearance Urine pH Ur Specific [place] Urine Protein Urine Glucose (UA) Urine Ketones Urine Blood Urine Nitrate Urine Bilirubin Urine Urobilinogen Ur Leukocyte Esterase Urine RBC Urine WBC Ur Epithelial Cells Urine Other 08/23/18 08/23/18 08/23/18 05:00 05:00 08:08 WBC RBC Hgb Hct MCV MCH MCHC RDW Plt Count MPV Gran % Lymph % (Auto) [place] % (Auto) Eos % (Auto) Baso % (Auto) Gran # Lymph # (Auto) [place] # (Auto) Eos # (Auto) Baso # (Auto) pCO2 29 L pO2 103.0 H HCO3 25.4 ABG pH 7.55 H ABG Total CO2 26.3 ABG O2 Saturation 99.4 H ABG Base Excess 3.8 H ABG Potassium 3.1 L VBG pH VBG pCO2 VBG HCO3 VBG Total CO2 VBG O2 Sat (Calc) VBG Base Excess VBG Potassium Sodium 139 142.0 Chloride 107 111.0 H Glucose 122 H Lactate 0.7 FiO2 21.0 Potassium 3.7 Carbon Dioxide 28 Anion Gap 8 L BUN 15 Creatinine 0.7 Est GFR ( Amer) > 60 Est GFR (Non-Af Amer) > 60 POC Glucose (mg/dL) Random Glucose 137 H Calcium 9.1 Phosphorus 3.7 Magnesium 1.9 Total Bilirubin 0.1 L AST 20 ALT 19 Alkaline Phosphatase 77 Total Protein 6.1 Albumin 3.1 Globulin 3.0 Albumin/Globulin Ratio 1.0 L Free T4 1.22 TSH 3rd Generation 1.91 Arterial Blood Potassium 3.1 L Venous Blood Potassium Urine Color Urine Appearance Urine pH Ur Specific [place] Urine Protein Urine Glucose (UA) Urine Ketones Urine Blood Urine Nitrate Urine Bilirubin Urine Urobilinogen Ur Leukocyte Esterase Urine RBC Urine WBC Ur Epithelial Cells Urine Other Critical Care Progress Note - Nutrition Nutrition: Nutrition Category Date Time Status Regular Diet [DIET] Diets 08/11/18 Breakfast Ordered Addendum Addendum: 08/23/18 17:13 ICU Attending Addendum Patient seen and examined. Case reviewed on round with housestaff. Agree with resident note above with the following additions/exceptions: 57F with Mhx of etOH abuse, DVT PE on Coumadin brought to ICU with cocerns of possible sepsis. Her temp was low however she is not longer hypothermic. BP has remained stable and perfusing well as evident by normal lac. Mentation dramatically improved as well. MRI done. No longer requires ICU monitoring ok to transfer out of ICU Rest of care as above Jonny Dover MD Pulmonary Critical Care and Sleep Medicine
[2018-08-23 08:10] LABS: ARTERIAL BLOOD GAS HCO3 25.4 mmol/L (21-28); ARTERIAL BLOOD GAS O2 SAT 99.4 % (95-98); ARTERIAL BLOOD GAS PCO2 29 mm/Hg (35-45); ARTERIAL BLOOD GAS PH 7.55 (7.35-7.45); ARTERIAL BLOOD GAS TCO2 26.3 mmol.L (22-28)
[2018-08-23] MEDS: Collagenase 250 Units/gm Ointment(30 gm) TOP SCH (09:41)
[2018-08-23] MEDS: Nystatin 100,000 Units/gm Topical Pow(15 gm) TOP SCH ×2 (09:44→17:35)
--- NOTE | 2018-08-23 12:01 | PN ---
DATE: 08/23/2018 SUBJECTIVE: The patient is seen in ICU 128, bed 7, did have low-grade fevers. PHYSICAL EXAMINATION: VITAL SIGNS: Temperature is 100.6, blood pressure is 87/50, respiratory rate of 24. HEENT: Unremarkable. NECK: Supple. LUNGS: Decreased breath sounds. HEART: Normal S1 and S2. ABDOMEN: Soft. LABORATORY DATA: Laboratory examination reveals a white count of 13,700, hemoglobin of 9, platelets of 425. Chemistries revealed a BUN of 15 and creatinine of 0.7. Last procalcitonin on 08/19/2018 was 0.09. Urinalysis is noted. Microbiology, blood cultures on 08/19/2018 are negative. The patient had MRI of the brain which shows no acute changes, read by Dr. Bret Gilmore. Dr. Ramírez's note is reviewed. ASSESSMENT AND PLAN: This is a 57-year-old female who has now become lethargic, hypothermic, received Haldol, new-onset of systemic inflammatory response syndrome. The patient was started on vancomycin and meropenem, pending repeat cultures, blood, urine, sputum, procalcitonin. We will follow with you. Ashkan Bah MD
[2018-08-23] MEDS: Vancomycin 1gm in NS 250ml 1 GM/250 ML BAG IVPB SCH (23:00)
[2018-08-24 05:29] LABS: ARTERIAL BLOOD GAS HCO3 29.2 mmol/L (21-28); ARTERIAL BLOOD GAS O2 SAT 98.6 % (95-98); ARTERIAL BLOOD GAS PCO2 41 mm/Hg (35-45); ARTERIAL BLOOD GAS PH 7.46 (7.35-7.45); ARTERIAL BLOOD GAS TCO2 30.5 mmol.L (22-28)
[2018-08-24] MEDS: Meropenem IV 1 gm in NS 1 GM/50 ML BAG IVPB SCH ×3 (05:38→23:31)
[2018-08-24 07:18] LABS: BASO # 0.02 K/mm3 (0.0-2.0); BASO % 0.1 % (0.0-3.0); EOS % 0.1 % (1.5-5.0); GRAN # 12.32 (1.4-6.5); GRAN % 75.6 % (50.0-68.0); HEMOGLOBIN 10.3 g/dL (12.0-16.0); LYMPH # 2.8 (1.2-3.4); LYMPH % 16.9 % (22.0-35.0); MEAN CORPUSCULAR HEMOGLOBIN 31.1 pg (25.0-35.0); MEAN CORPUSCULAR HGB CONC 32.1 g/dl (31.0-37.0); MEAN PLATELET VOLUME 10.1 fl (7.0-11.0); MONO # 1.2 (0.1-0.6); MONO % 7.3 % (1.0-6.0); RBC 3.31 10^6/uL (3.5-6.1); RED CELL DISTRIBUTION WIDTH 15.3 % (11.5-14.5); WHITE BLOOD COUNT 16.3 10^3/uL (4.5-11.0)
[2018-08-24 07:54] LABS: ALBUMIN 3.3 g/dL (3.0-4.8); ALT/SGPT 21 U/L (7-56); AST/SGOT 23 U/L (14-36); BLOOD UREA NITROGEN 19 mg/dL (7-21); CALCIUM 9.7 mg/dL (8.4-10.5); GFR NON-AFRICAN AMERICAN > 60
--- NOTE | 2018-08-24 08:15 | PN ---
DATE: 08/22/2018 SUBJECTIVE: The patient is a 58-year-old female who has undergone a number of life reversals has reportedly been functional up until several months ago when she underwent a rapid decline in both her physical and mental health. I have reviewed her situation with Dr. Lazo and with Dr. Hamilton. The patient is disorganized, responding to internal stimuli, agitated. She has been transferred to the ICU. The patient has also been showing hypotension. Blood pressure presently however 108/69, pulse 91, and temperature 97.4. The patient reportedly had been given p.r.n. of Haldol and seemed to have responded more effectively than the Risperdal (2 mg b.i.d.) that she was being treated with previously and thus we will switch her primary major tranquilization/antipsychotic medication to Haldol from Risperdal and continue to monitor with you. Dewayne Love MD/ PhD
[2018-08-24] MEDS: Vancomycin 1gm in NS 250ml 1 GM/250 ML BAG IVPB SCH ×2 (09:14→23:31)
[2018-08-24] MEDS: Collagenase 250 Units/gm Ointment(30 gm) TOP SCH (09:16)
[2018-08-24] MEDS: Nystatin 100,000 Units/gm Topical Pow(15 gm) TOP SCH ×2 (09:16→17:51)
--- NOTE | 2018-08-24 11:41 | PN ---
DATE: 08/24/2018 SUBJECTIVE: This 58-year-old female remains on the cardiac mahoney at the [facility] on the morning of Friday, August 24, 2018. She denied any fever, chills, chest pain or shortness of breath. She is in sinus rhythm, temperature 98.9, respirations 20, pulse 85, blood pressure 111/79 and pulse ox 98% on room air. Physical exam unchanged. White count 16,300, hemoglobin 10.3, hematocrit 32.1 and platelets 451,000. Sodium 142, K 4.3, chloride 108, bicarb 31, BUN 19, creatinine 0.6, random blood sugar 98, bilirubin 0.3, AST 23, ALT 21 and alk phos 74. Blood and urine cultures from 08/21/2018 and 08/22/2018 are negative and nasal swabs shows no MRSA. IMPRESSION: This 58-year-old female with paranoid psychosis, rule out sepsis, sacral sores, history of alcohol and marijuana abuse, history of peripheral neuropathy and chronic cigarette smoking. PLAN: Continue thiamine, vancomycin, tapering Solu-Cortef, Seroquel, Neurontin, meropenem, subcu heparin and Haldol. The patient continues with 1:1 sitter. I will request out of bed to chair and ambulation as able and social service is working with family regarding disposition to home when medically stable. Overall prognosis remains poor. Kena Lazo MD
--- NOTE | 2018-08-24 11:50 | PN ---
DATE: 08/23/2018 SUBJECTIVE: This 58-year-old female was examined at her bedside in the ICU bed 7 on the morning of Thursday, August 23, 2018, in the presence of nurse, Odette Ramirez, Registered Nurse. The patient is much more lucid, she can speak. She was able to read the headlines on the newspaper and denied any fever, chills, chest pain, or shortness of breath. Her brother Rubio was present for the interview. PHYSICAL EXAMINATION: GENERAL: On physical exam, she was in a sinus tachycardia on the alarm security or surveillance monitor. VITAL SIGNS: Temperature of 99, respirations 21, pulse 101, and blood pressure 107/57. Physical exam unchanged. LABORATORY DATA: White count 13,700, hemoglobin 9.2, hematocrit 28.7, platelets 425,000. Sodium 139, K 3.7, chloride 107, bicarb 28, BUN 15, creatinine 0.7, random blood sugar 137, calcium 9.1, phosphorous 3.7, magnesium 1.9. Bilirubin 0.1, AST 20, ALT 19, and alk phos 77. IMPRESSION A 58-year-old female with acute paranoid psychosis, improved; history of alcohol and marijuana abuse and misuse; with recent hypothermia, rule out sepsis; and hypotension. PLAN: At present is to continue Haldol 5 mg p.o. daily, Haldol 2 mg IV every 4 hours p.r.n. agitation, heparin 5000 units subcutaneously every 8 hours, meropenem 1 g IV every 8 hours, Neurontin 100 mg p.o. t.i.d., Seroquel 25 mg p.o at bedtime, vancomycin 1 g IV every 12 hours, thiamine 100 mg p.o. daily, and the patient was given Solu-Cortef 50 mg IV every 6 hours. Based on her clinical progress, additional diagnostic workup and testing will be entertained. I have requested the nurse get her out of bed to chair and to begin bedside physical therapy. Eventual plan will be discharged to her family, who will provide 24-hour supervision of this patient whose overall prognosis remains poor. Kena Lazo MD [facility] # [id number] [facility]
--- NOTE | 2018-08-24 13:00 | CP.PCM.PN ---
<Brook Buckner - Last Filed: 08/24/18 15:04> Subjective - Date & Time of Evaluation Date of Evaluation: 08/24/18 Time of Evaluation: 12:19 - Subjective Subjective: Podiatry Progress Note: Dr. Ramírez 58F patient seen and evaluated left heel ulcer Patient resting comfortably and in NAD. Unable to elicit history at this time secondary to patient mental status. Per nursing notes, no acute events overnight. Objective - Vital Signs/Intake and Output Vital Signs (last 24 hours): Temp Pulse Resp BP Pulse Ox 97.3 F L 89 18 116/65 98 08/24/18 12:00 08/24/18 12:00 08/24/18 12:00 08/24/18 12:00 08/24/18 06:00 Intake and Output: 08/24/18 08/24/18 06:59 18:59 Intake Total 470 Balance 470 - Medications Medications: Current Medications Acetaminophen (Tylenol 325mg Tab) 650 mg PO Q4H PRN PRN Reason: Pain, Mild (1-3) Last Admin: 08/23/18 18:40 Dose: 650 mg Collagenase (Santyl) 0 gm TOP DAILY MELY Last Admin: 08/24/18 09:16 Dose: 1 appl Gabapentin (Neurontin) 100 mg PO TID MELY Last Admin: 08/24/18 09:13 Dose: 100 mg Haloperidol (Haldol) 5 mg PO DAILY MELY; Protocol Last Admin: 08/24/18 09:13 Dose: 5 mg Haloperidol Lactate (Haldol) 2 mg IVP Q4 PRN; Protocol PRN Reason: Agitation Last Admin: 08/24/18 00:56 Dose: 2 mg Heparin Sodium (Porcine) (Heparin) 5,000 units SC Q8 MELY; Protocol Last Admin: 08/24/18 05:39 Dose: 5,000 units Meropenem (Merrem Iv 1 Gm Premix) 1 gm in 50 mls @ 100 mls/hr IVPB Q8 MELY; Protocol Last Admin: 08/24/18 05:38 Dose: 100 mls/hr Vancomycin HCl (Vancomycin 1gm) 1 gm in 250 mls @ 167 mls/hr IVPB Q12H MELY; Protocol Last Admin: 08/24/18 09:14 Dose: 167 mls/hr Lorazepam (Ativan) 1 mg IVP Q6H PRN; Protocol PRN Reason: Anxiety Last Admin: 08/22/18 07:30 Dose: 1 mg Nicotine (Nicoderm Cq) 1 patch TD DAILY MELY Last Admin: 08/24/18 09:13 Dose: 1 patch Nystatin (Nystop Topical Powder) 0 gm TOP BID MELY Last Admin: 08/24/18 09:16 Dose: 1 u Quetiapine Fumarate (Seroquel) 25 mg PO HS MELY; Protocol Last Admin: 08/23/18 21:15 Dose: 25 mg Thiamine HCl (Vitamin B1 Tab) 100 mg PO DAILY MELY Last Admin: 08/24/18 09:13 Dose: 100 mg - Labs Labs: 08/24/18 06:55 08/24/18 06:55 PT 12.5 SECONDS (9.4-12.5) 08/22/18 11:31 INR 1.09 08/22/18 11:31 APTT 31.0 Seconds (25.1-36.5) 08/22/18 11:31 - Constitutional Appears: Well, Non-toxic, No Acute Distress - Head Exam Head Exam: ATRAUMATIC, NORMOCEPHALIC - Eye Exam Eye Exam: Normal appearance Pupil Exam: NORMAL ACCOMODATION - Extremities Exam Additional comments: B/L LE focused exam: Vasc: DP/PT 2/4 b/l. Cap refill < 3 sec to all digits, TG Warm to cool from proximal to distal b/l, No edema noted b/l. Ortho: No pain upon palpation to left foot medial heel wound, cavus foot type bilaterally Neuro: Gross and protective sensation intact. Derm: L Biopsy site 100% granular base, no purulence, no malodor, no drainage, no bleeding, no erythema, no probe to bone. No clinical signs of active infection. Additional ulceration appreciated to the lateral aspect of the R foot with fibrogranular base, no purulence, no drainage, no clinical signs of infection. - Neurological Exam Neurological Exam: Alert Assessment and Plan - Assessment and Plan (Free Text) Assessment: 58F L heel ulcer Plan: Patient seen and evaluated at bedside with Dr. Elda Porras Pathology report L heel mass; infarcted verruca Intra-op pathology report; no malignancy LE RADHA exam; relatively normal RADHA and PVR examination at rest, possible mild b/l tibial disease LE MRI taken; limited postoperative changes seen at the posterior and inferior heel soft tissues without evident of OM Left foot 3 views x-ray: subcutaneous calcified mass, CT w/o contrast recommended. LE venous duplex (07/23): No evidence of DVT Local wound care: B/L foot wounds dressed with optifoam Stable for discharge from podiatry point of view <Cuca Ramírez - Last Filed: 08/27/18 14:15> Objective - Vital Signs/Intake and Output Vital Signs (last 24 hours): Temp Pulse Resp BP Pulse Ox 98.4 F 112 H 20 117/70 98 08/27/18 12:00 08/27/18 12:00 08/27/18 12:00 08/27/18 12:00 08/27/18 06:00 Intake and Output: 08/27/18 08/27/18 06:59 18:59 Intake Total 680 Output Total 102 Balance 578 - Medications Medications: Current Medications Collagenase (Santyl) 0 gm TOP DAILY MELY Last Admin: 08/27/18 11:32 Dose: 1 appl Gabapentin (Neurontin) 100 mg PO TID MELY Last Admin: 08/27/18 11:16 Dose: 100 mg Haloperidol (Haldol) 5 mg PO DAILY MELY; Protocol Last Admin: 08/27/18 11:17 Dose: 5 mg Haloperidol Lactate (Haldol) 2 mg IVP Q4 PRN; Protocol PRN Reason: Agitation Last Admin: 08/26/18 21:45 Dose: 2 mg Heparin Sodium (Porcine) (Heparin) 5,000 units SC Q8 MELY; Protocol Last Admin: 08/27/18 05:53 Dose: 5,000 units Lorazepam (Ativan) 1 mg IVP Q6H PRN; Protocol PRN Reason: Anxiety Last Admin: 08/22/18 07:30 Dose: 1 mg Nystatin (Nystop Topical Powder) 0 gm TOP BID MELY Last Admin: 08/27/18 11:32 Dose: 1 applic Quetiapine Fumarate (Seroquel) 25 mg PO HS MELY; Protocol Last Admin: 08/26/18 23:32 Dose: 25 mg - Labs Labs: 08/25/18 08:45 08/27/18 06:00 PT 12.5 SECONDS (9.4-12.5) 08/22/18 11:31 INR 1.09 08/22/18 11:31 APTT 31.0 Seconds (25.1-36.5) 08/22/18 11:31 Attending/Attestation - Attestation I have personally seen and examined this patient.: Yes I have fully participated in the care of the patient.: Yes I have reviewed all pertinent clinical information, including history, physical exam and plan: Yes
--- NOTE | 2018-08-24 16:22 | PN ---
DATE: 08/24/2018 SUBJECTIVE: Case reviewed with nursing and with Dr. Lazo. The patient appears improved to the extent that she is not agitated, but remains noncommunicative, with an upward gaze (which have does respond to stimuli). The case was reviewed with Dr. Hamilton. There is a possibility that this is catatonia, in which case it might respond to ECT. We will get second opinion. If ECT is to proceed, we will be to get consent from brother. The patient is now on Haldol p.r.n. IV push and 5 mg daily. Dewayne Love MD/ PhD
--- NOTE | 2018-08-25 01:35 | PN ---
DATE: 08/24/2018 SUBJECTIVE: The patient is in bed, in no acute distress, nontoxic. No fevers. PHYSICAL EXAMINATION VITAL SIGNS: Temperature is 97, blood pressure is 116/60, respiratory rate 18, heart rate of 97. HEENT: Unremarkable. NECK: Supple. LUNGS: Decreased breath sounds. HEART: Normal S1 and S2. ABDOMEN: Soft. LABORATORY EXAMINATION: Reveals a white count of 16,300, hemoglobin of 10, BUN of 19 and creatinine of 0.6. negative. Urine culture is negative. Blood culture is negative. MEDICATIONS: Review of systems reveals the patient to be on meropenem and vancomycin. ASSESSMENT AND PLAN: This is a 58-year-old female, seen earlier today in room 275, bed 1; became lethargic and hypothermic; received Haldol; new onset of systemic inflammatory response syndrome, on vancomycin and meropenem, pending final culture and repeat culture results. We will follow with you. Overall, prognosis is poor. Ashkan Bah MD
[2018-08-25] MEDS: Meropenem IV 1 gm in NS 1 GM/50 ML BAG IVPB SCH ×2 (05:55→13:37)
[2018-08-25 09:01] LABS: BASO # 0.01 K/mm3 (0.0-2.0); BASO % 0.1 % (0.0-3.0); EOS % 0.1 % (1.5-5.0); GRAN # 8.95 (1.4-6.5); HEMOGLOBIN 9.7 g/dL (12.0-16.0); LYMPH % 17.3 % (22.0-35.0); MEAN CELL VOLUME 97.4 fl (80.0-105.0); MEAN CORPUSCULAR HEMOGLOBIN 31.5 pg (25.0-35.0); MEAN CORPUSCULAR HGB CONC 32.3 g/dl (31.0-37.0); MEAN PLATELET VOLUME 9.4 fl (7.0-11.0); MONO # 0.8 (0.1-0.6); MONO % 6.5 % (1.0-6.0); RBC 3.08 10^6/uL (3.5-6.1); RED CELL DISTRIBUTION WIDTH 15.1 % (11.5-14.5); WHITE BLOOD COUNT 11.8 10^3/uL (4.5-11.0)
[2018-08-25] MEDS: Vancomycin 1gm in NS 250ml 1 GM/250 ML BAG IVPB SCH ×2 (09:10→09:32)
[2018-08-25] MEDS: Nystatin 100,000 Units/gm Topical Pow(15 gm) TOP SCH ×2 (09:14→17:11)
[2018-08-25] MEDS: Collagenase 250 Units/gm Ointment(30 gm) TOP SCH (09:14)
[2018-08-25 09:23] LABS: ALBUMIN 3.2 g/dL (3.0-4.8); ALT/SGPT 39 U/L (7-56); AST/SGOT 37 U/L (14-36); BLOOD UREA NITROGEN 17 mg/dL (7-21); CALCIUM 9.4 mg/dL (8.4-10.5); GFR NON-AFRICAN AMERICAN > 60
[2018-08-25] MEDS ORDERED: Metoprolol 1 mg/ml Inj IVP ONE (10:16)
--- NOTE | 2018-08-25 14:03 | PN ---
DATE: 08/25/2018 SUBJECTIVE: Case discussed with Dr. Lazo yesterday and Dr. Mccarthy today. The patient had been seen by Dr. Mccarthy and we both agree that she is improved today compared to yesterday. She, still as I had interacted with her, has a bizarre affect, was eating, making good eye contact but not speaking. She apparently was able to speak to Dr. Mccarthy. Given, however, the fact that the patient is improving, perhaps this is a harbinger of even further improvement. We will continue to monitor but will not presently offer ECT. Infectious disease Indicate that the patient's overall prognosis is poor which she considered to have the onset of a systemic inflammatory response syndrome. Dewayne Love MD/ PhD
--- NOTE | 2018-08-25 14:37 | PN ---
DATE: 08/25/2018 SUBJECTIVE: In short, the patient is 58-year-old female with not known previous psychiatric history. The patient was admitted on the medical side for evaluation of altered mental status. Based on the note, the patient's sister was worried about the patient because she did not hear from the patient for 4 days and that is why she broke into her apartment. The patient was found lying unresponsive on the floor with altered mental status. The patient was seen by Dr. Love. The patient was found to be delirious as well as catatonic. Dr. Love suggested ECT treatment and requested second opinion from this board writer. The patient was seen and examined. Notes reviewed. Discussed with the nursing staff. The patient presented to be alert. The patient was able to have some answers for this board writer questions but the patient appears to be confused. The patient had flat affect. The patient obviously was in delirium stage. The patient was picking something in the ear as well as on her skin. Discussed with Dr. Love today. The patient was not talking. The patient presented to be flat, was not eating. The patient responded relatively well on haloperidol and was not responding on benzodiazepine. Compared to this description today, the patient is doing somewhat relatively better because the patient was able to participate in interview, but the patient still presented to be confused and bizarre. This board writer reviewed previous admissions which seems to be not informative. The patient does not have history of being admitted to the psychiatric inpatient unit or this board writer is not sure if she has history of substance abuse and what the patient baseline of functioning. Based on Dr. Hamilton note on 09/06/2017, the patient was alert and oriented in all spheres which gives this board writer impression that at present moment, the patient is either in delirium stage or in catatonia or most likely a combination of both. The patient was diagnosed with left leg deep venous thrombosis and right lung pulmonary embolism on 08/2017 but then medical team did not have any concerns about the patient's mental status and the patient presented relatively well, that is why Psychiatry was not involved. PHYSICAL EXAMINATION: Going back to the patient's presentation at present moment; VITAL SIGNS: Seems to be stable, temperature 98.9, pulse is 90, blood pressure 112/69, respirations 16, oxygen saturation is 97. MEDICATIONS: Reviewed. The patient is on Tylenol, collagenase, Neurontin, haloperidol 5 mg daily and haloperidol 2 mg IV push every 4 hours as needed, most recently the patient got this medication on 08/24. The patient is on heparin, hydrocortisone, Ativan 1 mg IV push every 6 hours as needed which is on hold. The patient is on nystatin, potassium chloride, Seroquel 25 mg at the nighttime, thiamine and vancomycin. LABORATORY DATA: Reviewed. Most recent was from today. The patient still has leukocytosis 11.88. Coagulation reviewed. Chemistry reviewed. Potassium 3.3. Urinalysis reviewed. Toxicology reviewed. Cannabis positive and serology reviewed. Microbiology reviewed. Mental status examination as this board writer described above, the patient presented to be confused, intermittent eye contact. Flat affect. The patient was not able to describe her mood. Speech was yes no answers and the patient is slow with her responses. Thought process seems to be confused. Thought content, the patient was not able to tell me if she hears any voices, patient was not able to answer if she was having any thoughts of harming herself or others. Insight and judgment seems to be limited and impaired. Impulses are unpredictable. IMPRESSION: Most likely, the patient is in catatonic stage as well as delirium, but overall the patient is doing a little bit better because the patient was able to talk to this board writer today. RECOMMENDATIONS: Recommended in regards of ECT if the patient is improving from the mental standpoint and physical standpoint, we will hold of on ECT. Family should be involved. Acid Wash Operator need to be involved. As per report, the patient had sister as well as brother. I would choose only one antipsychotic medication either haloperidol or Seroquel. The patient also is on benzodiazepines. We can continue that. If the patient will be not improving, ECT will be a great choice for this patient. Also, family needs to be involved and give medical team advise what is the patient baseline history of substance abuse needs to be obtained because urine drug screen was positive for cannabis. Meanwhile, discussed with Dr. Love. Thank you very much for letting me participate in care of your patient. Should you have any questions give me a call back. Shalonda Mccarthy MD [facility] # [id number] MTDD
--- NOTE | 2018-08-25 21:02 | PN ---
DATE: 08/25/2018 SUBJECTIVE: The patient is in bed, in no acute distress, nontoxic. PHYSICAL EXAMINATION VITAL SIGNS: Temperature is 98, blood pressure is 112/60, respiratory rate of 18, heart rate of 127. HEENT: Unremarkable. NECK: Supple. LUNGS: Decreased breath sounds. HEART: Normal S1 and S2. ABDOMEN: Soft and nontender. LABORATORY EXAMINATION: Reveals a white count of 11,800, hemoglobin of 9, BUN of 17 and creatinine of 0.7. Urinalysis is noted. Microbiology reveals cultures are negative. Review of orders reveals the patient to be on Solu-Cortef and vancomycin. ASSESSMENT AND PLAN: This is a 57-year-old female, who was seen earlier today, became lethargic and hypothermic, received Haldol; systemic inflammatory response syndrome, blood cultures are negative thus far. The patient had an MRI of the brain on the limited, but essentially unremarkable. White count of 11,800 with negative urine cultures, negative MRSA screen, negative blood cultures. We will discontinue the antibiotics. No evidence of infection. The patient is believed to be at baseline. We will follow the patient off of antibiotics. Ashkan Bah MD
--- NOTE | 2018-08-26 09:06 | CP.PCM.PN ---
Subjective - Date & Time of Evaluation Date of Evaluation: 08/26/18 Time of Evaluation: 09:04 - Subjective Subjective: Podiatry Progress Note: Dr. Ramírez 58F patient seen and evaluated left heel ulcer Patient resting comfortably and in NAD. Unable to elicit history at this time secondary to patient mental status. Per nursing notes, no acute events overnight. Objective - Vital Signs/Intake and Output Vital Signs (last 24 hours): Temp Pulse Resp BP Pulse Ox 97.8 F 84 19 108/52 L 97 08/26/18 06:00 08/26/18 06:00 08/26/18 06:00 08/26/18 06:00 08/26/18 06:00 Intake and Output: 08/26/18 08/26/18 06:59 18:59 Intake Total 2340 Output Total 800 Balance 1540 - Medications Medications: Current Medications Acetaminophen (Tylenol 325mg Tab) 650 mg PO Q4H PRN PRN Reason: Pain, Mild (1-3) Last Admin: 08/25/18 10:22 Dose: 650 mg Collagenase (Santyl) 0 gm TOP DAILY MELY Last Admin: 08/25/18 09:14 Dose: 1 appl Gabapentin (Neurontin) 100 mg PO TID MELY Last Admin: 08/25/18 17:14 Dose: 100 mg Haloperidol (Haldol) 5 mg PO DAILY MELY; Protocol Last Admin: 08/25/18 09:09 Dose: 5 mg Haloperidol Lactate (Haldol) 2 mg IVP Q4 PRN; Protocol PRN Reason: Agitation Last Admin: 08/25/18 22:46 Dose: 2 mg Heparin Sodium (Porcine) (Heparin) 5,000 units SC Q8 MELY; Protocol Last Admin: 08/26/18 05:34 Dose: 5,000 units Hydrocortisone Sodium Succinate (Solu-Cortef) 50 mg IVP Q12H MELY Last Admin: 08/25/18 22:15 Dose: 50 mg Lorazepam (Ativan) 1 mg IVP Q6H PRN; Protocol PRN Reason: Anxiety Last Admin: 08/22/18 07:30 Dose: 1 mg Nystatin (Nystop Topical Powder) 0 gm TOP BID MELY Last Admin: 08/25/18 17:11 Dose: 1 u Quetiapine Fumarate (Seroquel) 25 mg PO HS MELY; Protocol Last Admin: 08/25/18 22:14 Dose: 25 mg Thiamine HCl (Vitamin B1 Tab) 100 mg PO DAILY MELY Last Admin: 08/25/18 09:09 Dose: 100 mg - Labs Labs: 08/25/18 08:45 08/26/18 06:30 PT 12.5 SECONDS (9.4-12.5) 08/22/18 11:31 INR 1.09 08/22/18 11:31 APTT 31.0 Seconds (25.1-36.5) 08/22/18 11:31 - Constitutional Appears: Well, Non-toxic, No Acute Distress - Head Exam Head Exam: ATRAUMATIC, NORMOCEPHALIC - Eye Exam Eye Exam: Normal appearance Pupil Exam: NORMAL ACCOMODATION - ENT Exam ENT Exam: Mucous Membranes Moist - Cardiovascular Exam Cardiovascular Exam: REGULAR RHYTHM - Extremities Exam Additional comments: B/L LE focused exam: Vasc: DP/PT 2/4 b/l. Cap refill < 3 sec to all digits, TG Warm to cool from proximal to distal b/l, No edema noted b/l. Ortho: No pain upon palpation to left foot medial heel wound, cavus foot type bilaterally Neuro: Gross and protective sensation intact. Derm: L Biopsy site 100% granular base, no purulence, no malodor, no drainage, no bleeding, no erythema, no probe to bone. No clinical signs of active infection. Additional superficial ulceration appreciated to the lateral aspect of the R foot with fibrogranular base, no purulence, no drainage, no clinical signs of infection. Assessment and Plan - Assessment and Plan (Free Text) Assessment: 58F L heel ulcer Plan: Patient seen and evaluated at bedside with Dr. Schroeder Afebrile Pathology report L heel mass; infarcted verruca Intra-op pathology report; no malignancy LE RADHA exam; relatively normal RADHA and PVR examination at rest, possible mild b/l tibial disease LE MRI taken; limited postoperative changes seen at the posterior and inferior heel soft tissues without evident of OM Left foot 3 views x-ray: subcutaneous calcified mass, CT w/o contrast recommended. LE venous duplex (07/23): No evidence of DVT Local wound care: B/L foot wounds dressed with optifoam Stable for discharge from podiatry point of view
[2018-08-26] MEDS ORDERED: Potassium Chloride 20 mEq ER Tab PO ONE (11:02)
[2018-08-26] MEDS: Collagenase 250 Units/gm Ointment(30 gm) TOP SCH (11:08)
[2018-08-26] MEDS: Nystatin 100,000 Units/gm Topical Pow(15 gm) TOP SCH ×2 (11:30→17:47)
--- NOTE | 2018-08-26 12:33 | PN ---
DATE: 08/25/2018 SUBJECTIVE: This 57-year-old female was seen at her bedside on the morning of , 08/25/2018, with her nurse, Jeni, present at the bedside. The patient was lying in bed, delirious, with a 1 to 1 sitter. She remains with decreased verbal communication skills and on physical exam was in a sinus rhythm with a temperature of 97.7, respirations 16, pulse 90, blood pressure 112/69. Physical exam otherwise unchanged. Urine culture shows no growth. MRSA culture of her nares shows no growth and blood culture shows no growth at 4 days. LABORATORY DATA: White count 11,800, hemoglobin 9.7, hematocrit 30, platelets 150,000. Sodium 143, K 3.3, chloride 106, bicarb 35, BUN 17, creatinine 0.7, random blood sugar 101. IMPRESSION: A 57-year-old female with metabolic encephalopathy, acute delirium, history of substance abuse, admission for rhabdomyolysis with septic shock and respiratory failure, now with failure to thrive. The patient continues to be followed by Psychiatry including Dr. Love and Dr. Shalonda Mccarthy. She is being seen by Dr. Bah from Infectious Disease and Dr. Hamilton from Neurology. I am tapering her Solu-Cortef which is contributing to her hypokalemia while continuing K supplementation and she does continue on thiamine, Seroquel, Neurontin, subcu heparin, Haldol. PLAN: The ultimate plan will be for this patient's family to be contacted by Social Service regarding disposition and overall prognosis remains poor. Kena Lazo MD [facility]
--- NOTE | 2018-08-26 13:05 | CP.PCM.PN ---
Subjective - Date & Time of Evaluation Date of Evaluation: 08/26/18 Time of Evaluation: 11:20 - Subjective Subjective: More awake today, no fevers, not in distress. Objective - Vital Signs/Intake and Output Vital Signs (last 24 hours): Temp Pulse Resp BP Pulse Ox 98.7 F 100 H 18 103/64 97 08/26/18 12:00 08/26/18 12:00 08/26/18 12:00 08/26/18 12:00 08/26/18 06:00 Intake and Output: 08/26/18 08/26/18 06:59 18:59 Intake Total 2340 Output Total 800 Balance 1540 - Medications Medications: Current Medications Collagenase (Santyl) 0 gm TOP DAILY [facility] Last Admin: 08/26/18 11:08 Dose: 1 appl Gabapentin (Neurontin) 100 mg PO TID [facility] Last Admin: 08/26/18 10:59 Dose: 100 mg Haloperidol (Haldol) 5 mg PO DAILY MELY; Protocol Last Admin: 08/26/18 10:59 Dose: 5 mg Haloperidol Lactate (Haldol) 2 mg IVP Q4 PRN; Protocol PRN Reason: Agitation Last Admin: 08/25/18 22:46 Dose: 2 mg Heparin Sodium (Porcine) (Heparin) 5,000 units SC Q8 MELY; Protocol Last Admin: 08/26/18 05:34 Dose: 5,000 units Potassium Chloride (Potassium Chloride 20 Meq/100 Ml) 20 meq in 100 mls @ 50 mls/hr IVPB Q2H MELY Stop: 08/26/18 15:14 Lorazepam (Ativan) 1 mg IVP Q6H PRN; Protocol PRN Reason: Anxiety Last Admin: 08/22/18 07:30 Dose: 1 mg Nystatin (Nystop Topical Powder) 0 gm TOP BID [facility] Last Admin: 08/26/18 11:30 Dose: 1 applic Quetiapine Fumarate (Seroquel) 25 mg PO HS MELY; Protocol Last Admin: 08/25/18 22:14 Dose: 25 mg Thiamine HCl (Vitamin B1 Tab) 100 mg PO DAILY [facility] Last Admin: 08/26/18 11:00 Dose: 100 mg - Labs Labs: 08/25/18 08:45 08/26/18 06:30 PT 12.5 SECONDS (9.4-12.5) 12/31/18 11:31 INR 1.09 08/22/18 11:31 APTT 31.0 Seconds (25.1-36.5) 08/22/18 11:31 - Constitutional Appears: Chronically Ill - Head Exam Head Exam: NORMAL INSPECTION - Neck Exam Neck Exam: absent: Meningismus - Respiratory Exam Respiratory Exam: Decreased Breath Sounds - Cardiovascular Exam Cardiovascular Exam: +S1, +S2 - GI/Abdominal Exam GI & Abdominal Exam: Soft. absent: Tenderness Assessment and Plan - Assessment and Plan (Free Text) Plan: Assessment S/P SIRS with hypothermia, no evidence of sepsis or bacterial infection delirium S/P Septic shock S/P VDRF (now extubated) due to colitis and pancreatitis with out blockage of biliary tract disease, now with pseudomembranous colitis S/P debridement of left foot ulcer related to peripheral arterial disease history of DVT asthma Plan continue to monitor off antibiotics since she is at risk for infections overall prognosis is poor
--- NOTE | 2018-08-26 14:02 | PN ---
DATE: 08/26/2018 SUBJECTIVE: This 57-year-old female remains hospitalized at the [facility] on 08/26/2018. I have had lengthy discussions with Dr. Love from Psychiatry and Dr. Lyle Hamilton from Neurology as well as Remy Romero from Social Service. The patient is stable, will require 24-hour supervision upon discharge and social service will be making arrangements with the family who agreed to take this patient home. At present, she remains with chronic altered mental status and it is unclear if this will ever improve. According to Neurology and Psychiatry, the patient is medically stable and is able to be cared for at home with home care and Haldol and Seroquel psychotropic medication. PHYSICAL EXAMINATION: VITAL SIGNS: Temperature 97.8, respirations 19, pulse 68 and blood pressure 108/52. LABORATORY DATA: White count 11,800, hemoglobin 9.7, hematocrit 30, platelets 450,000, a.m. potassium 3.1. IMPRESSION: A 57-year-old female with admission for septic shock, respiratory failure, substance abuse, now with chronic psychosis, peripheral neuropathy, chronic anemia, and hypokalemia secondary to Solu-Cortef, now discontinued. PLAN: To replace her potassium. Continue thiamine. She will continue on Seroquel, Neurontin and Haldol. Social Service will discuss disposition and discharge planning with the family. All of the above has been reviewed with Neurology and Psychiatry in detail. Kena Lazo MD [facility]
--- NOTE | 2018-08-26 16:04 | PN ---
DATE: 08/26/2018 SUBJECTIVE: . The patient appears to be resting, in no acute distress, but is unable to meaningfully interact. MEDICATIONS: Psychotropically, she is being maintained on Seroquel 25 mg at bedtime and Haldol 5 mg daily along with IV push p.r.n. and Ativan with an IV push p.r.n. Upon review of recent records including observation, we will proceed to have the patient transferred to either home or long-term facility. It is unclear what the patient's diagnostic entity is, with a differential ranging from catatony to delirium to a dementiform state. We would consider ECT in the future. Dewayne Love MD/ PhD
[2018-08-27] MEDS: Nystatin 100,000 Units/gm Topical Pow(15 gm) TOP SCH ×2 (11:32→18:49)
[2018-08-27] MEDS: Collagenase 250 Units/gm Ointment(30 gm) TOP SCH (11:32)
--- NOTE | 2018-08-27 13:02 | PN ---
DATE: 08/27/2018 SUBJECTIVE: The patient is in bed in no acute distress, nontoxic. PHYSICAL EXAMINATION: VITAL SIGNS: Temperature 98, blood pressure 109/50, respiratory rate 21, heart rate 95. HEENT: Examination of HEENT is unremarkable. NECK: Supple. LUNGS: Decreased breath sounds. HEART: Normal S1, S2. ABDOMEN: Soft, nontender. LABORATORY DATA: Reveals a white count of 11,800, hemoglobin of 9, platelets of 450. Chemistries reveals a BUN of 17, creatinine of 0.7. Urinalysis is noted. Serology is noted. Microbiology is reviewed. Review of orders reveals the patient to be on no antibiotics. ASSESSMENT AND PLAN: This is a 57-year-old female with systemic inflammatory response syndrome and hypothermia. No evidence of a bacterial infection. The patient does have delirium status post shock, status post ventilatory-dependent respiratory failure, now extubated. The patient with pancreatitis without biliary source or Pseudomembranous colitis. Currently off antibiotics, afebrile. The patient is at risk for developing nosocomial infection. Ashkan Bah MD
[2018-08-28] MEDS: Collagenase 250 Units/gm Ointment(30 gm) TOP SCH (10:11)
[2018-08-28] MEDS: Nystatin 100,000 Units/gm Topical Pow(15 gm) TOP SCH ×2 (10:12→17:30)
--- NOTE | 2018-08-28 14:04 | PN ---
DATE: 08/28/2018 SUBJECTIVE: This 58-year-old female remains hospitalized, awaiting discharge hopefully within the next 24 hours. She has multiple ongoing problems that are stable and the patient has been medically cleared for discharge by Infectious Disease customer care voice consultant Dr. Bah, psychiatrist Dr. Love and Dr. Mccarthy and neurologist Dr. Lyle Hamilton. PHYSICAL EXAMINATION: VITAL SIGNS: At present, temperature is 98.1, respirations 20, pulse 81 and blood pressure 90/65 with a pulse ox of 96% on room air. GENERAL: Physical exam remains stable. The patient remains chronically confused. LABORATORY DATA: White count 11,800, hemoglobin 9.7, hematocrit is 30 and platelets 450,000 with most recent potassium 4, BUN 17, and creatinine 0.7. IMPRESSION: A 58-year-old female with altered mental status, metabolic encephalopathy, peripheral neuropathy, sacral sore and status post septic shock, respiratory failure, pseudomembranous colitis at high risk for nosocomial infection the longer she remains hospitalized. I have discussed with her brother, her power of service superintendent, she will be readied for discharge to home with the family providing 24 hours supervision. Overall prognosis remains poor, as discussed with Dr. Love and second opinion customer care voice consultant Dr. Mccarthy; it is their impression that the patient should continue on Haldol orally as an outpatient and is not a candidate for electroshock therapy at this time. Kena Lazo MD
--- NOTE | 2018-08-28 21:12 | PN ---
DATE: 08/28/2018 SUBJECTIVE: The patient is in bed, in no acute distress, nontoxic. OBJECTIVE: VITAL SIGNS: On exam, temperature is 98, blood pressure is 129/60, respiratory rate of 18. HEENT: Unremarkable. NECK: Supple. LUNGS: Have decreased breath sounds. HEART: Normal S1, S2. ABDOMEN: Soft, nontender. LABORATORY EXAMINATION: Noted and white count is 11,800, hemoglobin of 9. Chemistries are noted. Urinalysis is noted and toxicology is noted. Serology is noted. Fourth generation HIV is negative. Review of orders reveals the patient to be off antibiotics. ASSESSMENT AND PLAN: This is a 58-year-old female seen earlier today in room 275, bed 1 with severe systemic inflammatory response syndrome. No evidence of bacterial infection. She does have delirium, status post shock, status post ventilator-dependent respiratory failure, currently extubated. The patient also had pancreatitis without any biliary as a source, also with pseudomembranous colitis. Currently off antibiotics, afebrile. The patient is at risk for developing nosocomial infections; and continue psychiatric followup and care. Ashkan Bah MD
--- NOTE | 2018-08-29 08:10 | PN ---
DATE: 08/27/2018 SUBJECTIVE: This 58-year-old female was examined at her bedside on the afternoon of 08/27/2017. Present for the interview was nurse, Krystal Madsen, registered nurse. I did speak with the patient's brother, Rubio, today. He is aware that he will need to speak with Social Service on Wednesday regarding discharge tentatively set for that date. The patient remains stable, but chronically confused and in need of 24-hour supervision which he states the family will provide at home. PHYSICAL EXAMINATION: VITAL SIGNS: Temperature was 99.1, respirations 16, pulse 79 and blood pressure 102/56. Physical exam otherwise unchanged. IMPRESSION: A 58-year-old female admitted with septic shock, respiratory failure, rhabdomyolysis, history of substance abuse with chronic peripheral neuropathy, now with altered mental status secondary to delirium with no clear psychiatric and neurological cause. The patient will continue on Haldol 5 mg p.o. daily, subcu heparin, Neurontin and Santyl to sacral wound as well as Seroquel 25 mg p.o. at bedtime. I will ask Social Service to contact the brother on Wednesday regarding discharge needs. Kena Lazo MD
[2018-08-29] MEDS: Nystatin 100,000 Units/gm Topical Pow(15 gm) TOP SCH ×2 (09:01→18:04)
[2018-08-29] MEDS: Collagenase 250 Units/gm Ointment(30 gm) TOP SCH (09:02)
--- NOTE | 2018-08-29 12:13 | CP.PCM.PN ---
Subjective - Date & Time of Evaluation Date of Evaluation: 08/29/18 Time of Evaluation: 12:12 - Subjective Subjective: Podiatry Progress Note: Dr. Ramírez 58F patient seen and evaluated left heel ulcer Patient resting comfortably and in NAD. Unable to elicit history at this time secondary to patient mental status. Per nursing notes, no acute events overnight. Objective - Vital Signs/Intake and Output Vital Signs (last 24 hours): Temp Pulse Resp BP Pulse Ox 98.1 F 140 H 18 97/60 L 98 08/29/18 05:47 08/29/18 10:00 08/29/18 05:47 08/29/18 05:47 08/29/18 05:47 Intake and Output: 08/29/18 08/29/18 06:59 18:59 Intake Total 370 Balance 370 - Medications Medications: Current Medications Collagenase (Santyl) 0 gm TOP DAILY [facility] Last Admin: 08/29/18 09:02 Dose: 1 appl Gabapentin (Neurontin) 100 mg PO TID [facility] Last Admin: 08/29/18 09:01 Dose: 100 mg Haloperidol (Haldol) 5 mg PO DAILY [facility]; Protocol Last Admin: 08/29/18 09:01 Dose: 5 mg Haloperidol Lactate (Haldol) 2 mg IVP Q4 PRN; Protocol PRN Reason: Agitation Last Admin: 08/29/18 11:42 Dose: 2 mg Heparin Sodium (Porcine) (Heparin) 5,000 units SC Q8 [facility]; Protocol Last Admin: 08/29/18 06:08 Dose: Not Given Lorazepam (Ativan) 1 mg IVP Q6H PRN; Protocol PRN Reason: Anxiety Last Admin: 08/22/18 07:30 Dose: 1 mg Nystatin (Nystop Topical Powder) 0 gm TOP BID [facility] Last Admin: 08/29/18 09:01 Dose: 1 applic Quetiapine Fumarate (Seroquel) 25 mg PO HS [facility]; Protocol Last Admin: 08/28/18 21:19 Dose: 25 mg - Labs Labs: 08/25/18 08:45 08/27/18 06:00 PT 12.5 SECONDS (9.4-12.5) 08/22/18 11:31 INR 1.09 08/22/18 11:31 APTT 31.0 Seconds (25.1-36.5) 08/22/18 11:31 - Constitutional Appears: Well, Non-toxic, No Acute Distress - Head Exam Head Exam: ATRAUMATIC - Eye Exam Eye Exam: Normal appearance Pupil Exam: NORMAL ACCOMODATION - ENT Exam ENT Exam: Mucous Membranes Moist - Extremities Exam Additional comments: B/L LE focused exam: Vasc: DP/PT 2/4 b/l. Cap refill < 3 sec to all digits, TG Warm to cool from proximal to distal b/l, No edema noted b/l. Ortho: No pain upon palpation to left foot medial heel wound, cavus foot type bilaterally Neuro: Gross and protective sensation intact. Derm: L Biopsy site 100% granular base, no purulence, no malodor, no drainage, no bleeding, no erythema, no probe to bone. No clinical signs of active infection. Additional superficial ulceration appreciated to the lateral aspect of the R foot with fibrogranular base, no purulence, no drainage, no clinical signs of infection. Assessment and Plan - Assessment and Plan (Free Text) Assessment: 58F L heel ulcer Plan: Patient seen and evaluated at bedside with Dr. Schroeder Afebrile Pathology report L heel mass; infarcted verruca Intra-op pathology report; no malignancy LE RADHA exam; relatively normal RADHA and PVR examination at rest, possible mild b/l tibial disease LE MRI taken; limited postoperative changes seen at the posterior and inferior heel soft tissues without evident of OM Left foot 3 views x-ray: subcutaneous calcified mass, CT w/o contrast recommended. LE venous duplex (07/23): No evidence of DVT Local wound care: B/L foot wounds dressed with optifoam Stable for discharge from podiatry point of view
--- NOTE | 2018-08-29 13:12 | CP.PCM.PN ---
Subjective - Date & Time of Evaluation Date of Evaluation: 08/29/18 Time of Evaluation: 10:40 - Subjective Subjective: Comfortable but at times agitated, no fevers, non-toxic. Objective - Vital Signs/Intake and Output Vital Signs (last 24 hours): Temp Pulse Resp BP Pulse Ox 97.9 F 111 H 17 100/62 98 08/29/18 12:00 08/29/18 12:00 08/29/18 12:00 08/29/18 12:00 08/29/18 12:00 Intake and Output: 08/29/18 08/29/18 06:59 18:59 Intake Total 370 Balance 370 - Medications Medications: Current Medications Collagenase (Santyl) 0 gm TOP DAILY [facility] Last Admin: 08/29/18 09:02 Dose: 1 appl Gabapentin (Neurontin) 100 mg PO TID [facility] Last Admin: 08/29/18 09:01 Dose: 100 mg Haloperidol (Haldol) 5 mg PO DAILY [facility]; Protocol Last Admin: 08/29/18 09:01 Dose: 5 mg Haloperidol Lactate (Haldol) 2 mg IVP Q4 PRN; Protocol PRN Reason: Agitation Last Admin: 08/29/18 11:42 Dose: 2 mg Heparin Sodium (Porcine) (Heparin) 5,000 units SC Q8 [facility]; Protocol Last Admin: 08/29/18 06:08 Dose: Not Given Lorazepam (Ativan) 1 mg IVP Q6H PRN; Protocol PRN Reason: Anxiety Last Admin: 08/22/18 07:30 Dose: 1 mg Nystatin (Nystop Topical Powder) 0 gm TOP BID [facility] Last Admin: 08/29/18 09:01 Dose: 1 applic Quetiapine Fumarate (Seroquel) 25 mg PO HS [facility]; Protocol Last Admin: 08/28/18 21:19 Dose: 25 mg - Labs Labs: 08/25/18 08:45 08/27/18 06:00 PT 12.5 SECONDS (9.4-12.5) 08/22/18 11:31 INR 1.09 08/22/18 11:31 APTT 31.0 Seconds (25.1-36.5) 08/22/18 11:31 - Constitutional Appears: Chronically Ill - Head Exam Head Exam: NORMAL INSPECTION - Respiratory Exam Respiratory Exam: Decreased Breath Sounds - Cardiovascular Exam Cardiovascular Exam: +S1, +S2 - GI/Abdominal Exam GI & Abdominal Exam: Soft. absent: Tenderness Assessment and Plan - Assessment and Plan (Free Text) Plan: Assessment S/P SIRS with hypothermia, no evidence of sepsis or bacterial infection delirium S/P Septic shock S/P VDRF (now extubated) due to colitis and pancreatitis without blockage of biliary tract disease, now with pseudomembranous colitis S/P debridement of left foot ulcer related to peripheral arterial disease history of DVT asthma Plan continue to monitor off antibiotics since she is at risk for nosoocomial infections overall prognosis is poor
--- NOTE | 2018-08-29 15:43 | PN ---
DATE: 08/29/2018 SUBJECTIVE: The patient is being treated for severe systemic inflammatory response syndrome, according to Infectious Diseases, with no evidence of a bacterial infection. She is considered to be in a state of delirium and post ventilator-dependent respiratory failure. She also has had pancreatitis without any biliary source and also pseudomembranous colitis. She is currently off antibiotics. The patient is unable to engage in a meaningful interaction at this juncture. I have reviewed Dr. Lazo's note of yesterday. The patient is being maintained on Ativan and Haldol as needed and Haldol 5 mg daily, Neurontin 100 mg three times a day, Seroquel 25 mg at bedtime. Dewayne Love MD/ PhD
[2018-08-29] MEDS ORDERED: Sodium Chloride 0.9% 1,000 ML IV STA (23:15)
[2018-08-30] MEDS ORDERED: Sodium Chloride 0.9% 1,000 ML IV STA ×2 (02:08→04:40)
--- NOTE | 2018-08-30 03:29 | CP.PCM.PCO ---
<Cristina Cosme - Last Filed: 08/30/18 03:28> Physician Communication Note - Physician Communication Note Physician Communication Note: Patient has blood pressure of 85/50s. Asympatomatic.Patient given 2 L of NS <Jacquie Ambrocio - Last Filed: 08/30/18 06:54> Attending/Attestation - Attestation I have personally seen and examined this patient.: Yes I have fully participated in the care of the patient.: Yes I have reviewed all pertinent clinical information: Yes
--- NOTE | 2018-08-30 03:32 | CP.PCM.PN ---
<Cristina Cosme - Last Filed: 08/30/18 03:29> Subjective - Date & Time of Evaluation Date of Evaluation: 08/30/18 Time of Evaluation: 03:29 - Subjective Subjective: Patient was found to have blood pressure in 80s/50s. Patient has had blood pressure in the 90s/60s previously. Patient is currently confused but is at baseline. Patient does not seem to have any change in presentation. Patient was given 2 L of NS and found to have stable blood pressure in the 80s/50s. Patient was also found to be retaining urine of about 400 cc but later voided urine. CBC, CMP, UA, UC were ordered for further workup. Objective - Vital Signs/Intake and Output Vital Signs (last 24 hours): Temp Pulse Resp BP Pulse Ox 98.1 F 101 H 21 98/65 L 98 08/29/18 18:00 08/29/18 18:00 08/29/18 18:00 08/29/18 18:00 08/29/18 12:00 Intake and Output: 08/29/18 08/30/18 18:59 06:59 Intake Total 0 Balance 0 - Medications Medications: Current Medications Collagenase (Santyl) 0 gm TOP DAILY [facility] Last Admin: 08/29/18 09:02 Dose: 1 appl Gabapentin (Neurontin) 100 mg PO TID [facility] Last Admin: 08/29/18 18:03 Dose: 100 mg Haloperidol (Haldol) 5 mg PO DAILY [facility]; Protocol Last Admin: 08/29/18 09:01 Dose: 5 mg Haloperidol Lactate (Haldol) 2 mg IVP Q4 PRN; Protocol PRN Reason: Agitation Last Admin: 08/29/18 11:42 Dose: 2 mg Heparin Sodium (Porcine) (Heparin) 5,000 units SC Q8 [facility]; Protocol Last Admin: 08/29/18 21:50 Dose: 5,000 units Lorazepam (Ativan) 1 mg IVP Q6H PRN; Protocol PRN Reason: Anxiety Last Admin: 08/22/18 07:30 Dose: 1 mg Nystatin (Nystop Topical Powder) 0 gm TOP BID [facility] Last Admin: 08/29/18 18:04 Dose: 1 applic Quetiapine Fumarate (Seroquel) 25 mg PO HS [facility]; Protocol Last Admin: 08/29/18 21:50 Dose: 25 mg - Labs Labs: 08/25/18 08:45 08/27/18 06:00 PT 12.5 SECONDS (9.4-12.5) 08/22/18 11:31 INR 1.09 08/22/18 11:31 APTT 31.0 Seconds (25.1-36.5) 08/22/18 11:31 <Jacquie Ambrocio - Last Filed: 08/30/18 06:56> Objective - Vital Signs/Intake and Output Vital Signs (last 24 hours): Temp Pulse Resp BP Pulse Ox 99.4 F 90 20 88/53 L 98 08/30/18 00:01 08/30/18 00:01 08/30/18 00:01 08/30/18 00:01 08/30/18 00:01 Intake and Output: 08/29/18 08/30/18 18:59 06:59 Intake Total 0 Balance 0 - Medications Medications: Current Medications Collagenase (Santyl) 0 gm TOP DAILY [facility] Last Admin: 08/29/18 09:02 Dose: 1 appl Gabapentin (Neurontin) 100 mg PO TID [facility] Last Admin: 08/29/18 18:03 Dose: 100 mg Haloperidol (Haldol) 5 mg PO DAILY [facility]; Protocol Last Admin: 08/29/18 09:01 Dose: 5 mg Haloperidol Lactate (Haldol) 2 mg IVP Q4 PRN; Protocol PRN Reason: Agitation Last Admin: 08/29/18 11:42 Dose: 2 mg Heparin Sodium (Porcine) (Heparin) 5,000 units SC Q8 [facility]; Protocol Last Admin: 08/29/18 21:50 Dose: 5,000 units Sodium Chloride (Sodium Chloride 0.9%) 1,000 mls @ 125 mls/hr IV .Q8H STA Stop: 08/30/18 12:39 NOREPINEPHRINE BIT/0.9 % NACL (Levophed 4 Mg/ 250 Ml Ns Premixed) 4 mg in 250 mls @ 15 mls/hr IV .[id number] PRN; Protocol PRN Reason: TITRATE PER MD ORDER Lorazepam (Ativan) 1 mg IVP Q6H PRN; Protocol PRN Reason: Anxiety Last Admin: 08/22/18 07:30 Dose: 1 mg Nystatin (Nystop Topical Powder) 0 gm TOP BID [facility] Last Admin: 08/29/18 18:04 Dose: 1 applic Quetiapine Fumarate (Seroquel) 25 mg PO HS [facility]; Protocol Last Admin: 08/29/18 21:50 Dose: 25 mg - Labs Labs: 08/30/18 03:26 08/30/18 03:26 PT 12.5 SECONDS (9.4-12.5) 08/22/18 11:31 INR 1.09 08/22/18 11:31 APTT 31.0 Seconds (25.1-36.5) 08/22/18 11:31 Attending/Attestation - Attestation I have personally seen and examined this patient.: Yes I have fully participated in the care of the patient.: Yes I have reviewed all pertinent clinical information, including history, physical exam and plan: Yes
[2018-08-30 03:51] LABS: ALBUMIN 2.8 g/dL (3.0-4.8); ALT/SGPT 35 U/L (7-56); AST/SGOT 24 U/L (14-36); BLOOD UREA NITROGEN 27 mg/dL (7-21); CALCIUM 8.3 mg/dL (8.4-10.5); GFR NON-AFRICAN AMERICAN > 60
[2018-08-30 04:00] LABS: BASO # 0.01 K/mm3 (0.0-2.0); BASO % 0.1 % (0.0-3.0); EOS # 0.3 (0.0-0.7); EOS % 3.4 % (1.5-5.0); GRAN # 4.74 (1.4-6.5); GRAN % 53.7 % (50.0-68.0); HEMOGLOBIN 8.6 g/dL (12.0-16.0); LYMPH # 2.8 (1.2-3.4); LYMPH % 31.9 % (22.0-35.0); MEAN CELL VOLUME 97.4 fl (80.0-105.0); MEAN CORPUSCULAR HEMOGLOBIN 31.5 pg (25.0-35.0); MEAN CORPUSCULAR HGB CONC 32.3 g/dl (31.0-37.0); MEAN PLATELET VOLUME 9.6 fl (7.0-11.0); MONO % 10.9 % (1.0-6.0); RBC 2.73 10^6/uL (3.5-6.1); RED CELL DISTRIBUTION WIDTH 14.8 % (11.5-14.5); WHITE BLOOD COUNT 8.8 10^3/uL (4.5-11.0)
[2018-08-30] MEDS ORDERED: NOREPINEPHRINE BIT/0.9 % NACL 4 MG/250 ML BAG IV PRN (04:46)
[2018-08-30] MEDS ORDERED: Vancomycin 1gm in NS 250ml 1 GM/250 ML BAG IVPB STA (04:47)
--- NOTE | 2018-08-30 06:55 | PCM.PROC ---
<Dougie Boyd - Last Filed: 08/30/18 06:52> Procedures Attestation:: I certify that I have explained the specified Operation(s) or Procedure(s), risks, benefits and reasonable alternatives to the Patient and/or other person responsible. The opportunity was given to ask questions and all questions answered - Central Line Placement Right Internal Jugular Triple Lumen Catheter Aseptic technique was employed throughout the procedure: Hand Hygiene done prior to procedure, Full sterile barriers (mask, hair cover, sterile gown, sterile gloves), Full body sterile drape, Chloraprep Antiseptic: 30 second prep for IJ or SC sites Pt. Placed on Pulse Ox Monitor: Yes Central Line Prep: Chlorhexidine-Alcohol Combination Amount of Anesthesia Used (mls): 7 Ultrasound Used for Placement: Yes Central Line Lumen Inserted: triple Central Line Length: 20 cm Post Procedure: Sutured in Place, Good Blood Return, All Ports Aspirated, Flushed, Capped, Sterile Dressing Applied Secured by: Suture Post procedure dressing: Clear vapor permeable, Chlorhexidine disc (Biopatch) Post Procedure X-Ray: Yes Patient Tolerated Procedure: Well Immediate Complications: None Additional Comments: R IJ TLC placed for central access and pressor support. Post-procedure CXR visualized and shows central line in place, nursing given okay to use. Placement by Resident Physician, overseen by attending. <Jacquie Ambrocio - Last Filed: 08/30/18 19:07> Attending/Attestation - Attestation I have personally seen and examined this patient.: Yes I have fully participated in the care of the patient.: Yes I have reviewed all pertinent clinical information, including history, physical exam and plan: Yes
--- NOTE | 2018-08-30 06:59 | CP.PCM.CON ---
<Cristnia Cosme - Last Filed: 08/30/18 06:39> History of Present Illness - History of Present Illness History of Present Illness: Cristina Cosme, PGY-1, Internal Medicine Consult Note for Dr. Ambrocio 58 year old female with past medical history of asthma and DVT presented last night with low blood pressure. Patient's blood pressure was found to be in the 80s/50s and was given 1 liter of fluid which did not elevate the blood pressure. Patient was given another liter of fluid which did not elevate the blood pressure either. Patient's blood pressure started to decline after 2nd bolus was completed. Patient's blood pressure continued to decrease and medical psychotherapist, me, was called when patient's blood pressure was in the 60s/40s and borderline bradycardia with heart rate of 40s-50s. Patient was at baseline mental status of altered mental status. Patient is awake, alert, and orientedx1. Patient was transferred to the ICU. Patient was started on levophed 4 mcg/min through his peripheral line while central line was being placed. Once central line was placed, placement was confirmed with CXR. Levophed was started through central line subsequently. HPI is limited. Patient is confused and more information regarding past medical history, past surgical history, family history, social history, allergies, and PMD was limited. 12-point ROS was limited due to patient's mental status. PMH: asthma, DVT PSH: unknown Meds: coumadin, gabapentin, famotidine All: NKDA FMHx: non-contributary SHx: 1/2 PPD, social drinker Information was taken from prior notes. Review of Systems - Review of Systems Systems not reviewed;Unavailable: Altered Mental Status Past Patient History - Infectious Disease Hx of Infectious Diseases: None - Past Social History Smoking Status: Current Some Days Smoker - CARDIAC Hx Cardiac Disorders: No Hx Peripheral Vascular Disease: Yes (DVT ON COUMADIN) - PULMONARY Hx Respiratory Disorders: Yes (SMOKES CIGARETTES HALF A PPD.) Hx Asthma: Yes Other/Comment: PULMONARY EMBOLISM - NEUROLOGICAL Hx Neurological Disorder: No - HEENT Hx HEENT Problems: No - RENAL Hx Chronic Kidney Disease: No - ENDOCRINE/METABOLIC Hx Endocrine Disorders: No - HEMATOLOGICAL/ONCOLOGICAL Hx Blood Disorders: Yes Other/Comment: DVT - INTEGUMENTARY Hx Dermatological Problems: Yes Other/Comment: 11-28-18 MULTIPLE REDDENED SKIN ALL OVER BODY,LEGS ARMS. DTI FROM LAYING ON FLOOR FOR ALMOST 4 D OR MORE. WAS FD ON FLOOR BY SIBLING. BILATERAL SHOULDER BLADE,BILATERAL ELBOW,SPINE,LOWER BACK.BILATERAL HIP, BILATERAL KNEE, BILATERAL MALLEOLAR BONE, SACRAL AREA WITH 2 SMALL NECROTIC TISSUE.,BILATERAL BUTTOCKS AREA. HAS DTI. SKIN IS RED SWOLLEN.COOL SKIN. - MUSCULOSKELETAL/RHEUMATOLOGICAL Hx Musculoskeletal Disorders: Yes Hx Falls: Yes Hx Unsteady Gait: Yes - GASTROINTESTINAL Hx Gastrointestinal Disorders: Yes (CLOLITIS?,CHOLECYSTITIS? PANCREATITIS?) Hx Gastroesophageal Reflux: Yes - GENITOURINARY/GYNECOLOGICAL Hx Genitourinary Disorders: No - PSYCHIATRIC Hx Psychophysiologic Disorder: Yes Other/Comment: recently lost , decrease appetite, half pack smoker - SURGICAL HISTORY Hx Surgeries: No - ANESTHESIA Hx Anesthesia: No Meds Allergies/Adverse Reactions: Allergies Allergy/AdvReac Type Severity Reaction Status Date / Time No Known Allergies Allergy Verified 07/20/18 16:33 - Medications Medications: Current Medications Collagenase (Santyl) 0 gm TOP DAILY MELY Last Admin: 08/29/18 09:02 Dose: 1 appl Gabapentin (Neurontin) 100 mg PO TID MELY Last Admin: 08/29/18 18:03 Dose: 100 mg Haloperidol (Haldol) 5 mg PO DAILY MELY; Protocol Last Admin: 08/29/18 09:01 Dose: 5 mg Haloperidol Lactate (Haldol) 2 mg IVP Q4 PRN; Protocol PRN Reason: Agitation Last Admin: 08/29/18 11:42 Dose: 2 mg Heparin Sodium (Porcine) (Heparin) 5,000 units SC Q8 MELY; Protocol Last Admin: 08/29/18 21:50 Dose: 5,000 units Sodium Chloride (Sodium Chloride 0.9%) 1,000 mls @ 125 mls/hr IV .Q8H STA Stop: 08/30/18 12:39 NOREPINEPHRINE BIT/0.9 % NACL (Levophed 4 Mg/ 250 Ml Ns Premixed) 4 mg in 250 mls @ 15 mls/hr IV .[id number] PRN; Protocol PRN Reason: TITRATE PER MD ORDER Lorazepam (Ativan) 1 mg IVP Q6H PRN; Protocol PRN Reason: Anxiety Last Admin: 08/22/18 07:30 Dose: 1 mg Nystatin (Nystop Topical Powder) 0 gm TOP BID MELY Last Admin: 08/29/18 18:04 Dose: 1 applic Quetiapine Fumarate (Seroquel) 25 mg PO HS MELY; Protocol Last Admin: 08/29/18 21:50 Dose: 25 mg Physical Exam - Constitutional Appears: Non-toxic, No Acute Distress, Older Than Stated Age - Head Exam Head Exam: ATRAUMATIC, NORMAL INSPECTION, NORMOCEPHALIC - Eye Exam Eye Exam: EOMI, PERRL - ENT Exam ENT Exam: Mucous Membranes Moist - Respiratory Exam Respiratory Exam: Clear to Auscultation Bilateral, NORMAL BREATHING PATTERN - Cardiovascular Exam Cardiovascular Exam: Bradycardia, REGULAR RHYTHM - GI/Abdominal Exam GI & Abdominal Exam: Normal Bowel Sounds, Soft. absent: Tenderness - Extremities Exam Extremities exam: Positive for: full ROM - Neurological Exam Neurological exam: Alert, CN II-XII Intact Additional comments: AAOx1 Results - Vital Signs Recent Vital Signs: Last Vital Signs Temp 99.4 F 08/30/18 00:01 Pulse 90 08/30/18 00:01 Resp 20 08/30/18 00:01 BP 88/53 L 08/30/18 00:01 Pulse Ox 98 08/30/18 00:01 - Labs Result Diagrams: 08/30/18 03:26 08/30/18 03:26 Labs: Laboratory Results - last 24 hr 08/30/18 08/30/18 03:26 03:26 WBC 8.8 D RBC 2.73 L Hgb 8.6 L Hct 26.6 L MCV 97.4 MCH 31.5 MCHC 32.3 RDW 14.8 H Plt Count 435 MPV 9.6 Gran % 53.7 Lymph % (Auto) 31.9 [place] % (Auto) 10.9 H Eos % (Auto) 3.4 Baso % (Auto) 0.1 Gran # 4.74 Lymph # (Auto) 2.8 [place] # (Auto) 1.0 H Eos # (Auto) 0.3 Baso # (Auto) 0.01 Sodium 142 Potassium 3.6 Chloride 111 H Carbon Dioxide 26 Anion Gap 8 L BUN 27 H Creatinine 0.8 Est GFR ( Amer) > 60 Est GFR (Non-Af Amer) > 60 Random Glucose 93 Calcium 8.3 L Total Bilirubin 0.3 AST 24 ALT 35 Alkaline Phosphatase 66 Total Protein 5.6 L Albumin 2.8 L Globulin 2.8 Albumin/Globulin Ratio 1.0 L Assessment & Plan - Assessment and Plan (Free Text) Assessment: 58 year old female with past medical history of asthma and DVT presented last night with low blood pressure. Patient's blood pressure was found to be in the 80s/50s and was given 1 liter of fluid which did not elevate the blood pressure. Plan: Currently admitted to ICU for management of acute hypotensive episode not res ponsive to aggressive fluid resuscitation, requiring pressor support. Neuro 08/22/18 CT head shows No mass effect or edema. No atrophy or chronic microvascular ischemic changes. No intracranial hemmorhage. 08/22/18 cervical xray shows normal cervical spine radiographs 08/22/18 Brain MRI- no gross abnormality noted -Patient confused at this time; Avoid sedative medications -Reorient as necessary -Neuro on consult - Dr. Hamilton -Psych on consult - Dr. Herrera -AAOx1 to self only; following simple commands; moving all extremities spontaneously -Reorient as necessary -Hold Seroquel, Hold Ativan, Hold Haldol MELY due to patient's hypotension -Continue Haldol 2 Q4 PRN Pulm - 08/22/18 CXR with minimally questionable RML infiltrate, Normal cardiac size. No pulmonary vascular congestion. -08/30/17 - CXR for TLC placement shows good line placement; no infiltrate appreciated -Maintaining O2 Sat well, Protecting airway, Hold off sedatives - No signs of respiratory distress. - Patient is saturating well on room air. - Maintain O2 saturation>92%. - Elevate bed to 30 degrees Cardio -Hypotensive + Borderline Bradycardic -Unresponsive to 3L bolus -Central Line placed; Started on levophed -Blood pressures improved post levophed administration -One time dose of decadron 20 mg -Maintain MAP>65. -Monitor for S/S of HD instability Hem/Onc -Hb appears to be downtrending -Maintain Hb >7; Tranfuse PRN GI/Endo -Maintain euglycemia - glucose between 140-180 - as per sugar trial -Maintain Normothermia -Follow up HIDA scan results for possible etiology of infection causing SIRS -Follow up cortisol level -C/w w/ PO diet -Stress dose steroids - Decadron 20mg - one time -Tolerating diet -Accuchecks Nephro - Walden inserted; monitor IO - Was retaining approx 400 on 08/29 - Replete electrolytes as needed. - Maintain euvolemia. ID -Given stat dose Vancomycin -UA, UCX, BCX, ESR/CRP pending 08/30 -Follow up HIDA scan results for possible etiology of infection causing SIRS -One dose of vancomycin given and started on meropenem Q8 -ID previously consulted, appreciate recs -Afebrile MSK - 08/22/18 thoracolumbar x-ray after fall showed Normal radiographs of the thoracic spine. - Verruca left heel - stable, no sign of infection, cont local care MWF, multipodous boots - Dr. Ramírez -podiatry on consult - Pain control with Tylenol q6 DVT ppx - Heparin 5000 q8 - SCDs in place GI ppx -protonix 40 mg daily Patient plan discussed with Dr. Ambrocio - Date & Time Date: 08/30/18 Time: 07:03 <Jacquie Ambrocio - Last Filed: 08/30/18 19:07> Meds - Medications Medications: Current Medications Collagenase (Santyl) 0 gm TOP DAILY MELY Last Admin: 08/30/18 09:53 Dose: 1 appl Gabapentin (Neurontin) 100 mg PO TID MELY Last Admin: 08/30/18 17:09 Dose: 100 mg Haloperidol (Haldol) 5 mg PO DAILY MELY; Protocol Last Admin: 08/29/18 09:01 Dose: 5 mg Haloperidol Lactate (Haldol) 2 mg IVP Q4 PRN; Protocol PRN Reason: Agitation Last Admin: 08/29/18 11:42 Dose: 2 mg Heparin Sodium (Porcine) (Heparin) 5,000 units SC Q8 MELY; Protocol Last Admin: 08/30/18 13:39 Dose: 5,000 units NOREPINEPHRINE BIT/0.9 % NACL (Levophed 4 Mg/ 250 Ml Ns Premixed) 4 mg in 250 mls @ 15 mls/hr IV .[id number] PRN; Protocol PRN Reason: TITRATE PER MD ORDER Last Admin: 08/30/18 05:00 Dose: 5 mcg/min, 18.75 mls/hr Meropenem (Merrem Iv 1 Gm Premix) 1 gm in 50 mls @ 100 mls/hr IVPB Q8 MELY; Protocol Stop: 08/30/18 22:29 Last Admin: 08/30/18 13:39 Dose: 100 mls/hr Lorazepam (Ativan) 1 mg IVP Q6H PRN; Protocol PRN Reason: Anxiety Last Admin: 08/22/18 07:30 Dose: 1 mg Midodrine (Proamatine) 5 mg PO TID [facility] Last Admin: 08/30/18 17:09 Dose: 5 mg Nystatin (Nystop Topical Powder) 0 gm TOP BID [facility] Last Admin: 08/30/18 17:09 Dose: 1 applic Pantoprazole Sodium (Protonix Inj) 40 mg IVP DAILY [facility] Last Admin: 08/30/18 09:52 Dose: 40 mg Quetiapine Fumarate (Seroquel) 25 mg PO HS MELY; Protocol Last Admin: 08/29/18 21:50 Dose: 25 mg Results - Vital Signs Recent Vital Signs: Last Vital Signs Temp 99 F 08/30/18 05:00 Pulse 92 H 08/30/18 17:59 Resp 30 H 08/30/18 17:29 BP 89/40 L 08/30/18 18:00 Pulse Ox 100 08/30/18 15:01 - Labs Result Diagrams: 08/30/18 03:26 08/30/18 03:26 Labs: Laboratory Results - last 24 hr 08/30/18 08/30/18 08/30/18 03:26 03:26 03:26 WBC 8.8 D RBC 2.73 L Hgb 8.6 L Hct 26.6 L MCV 97.4 MCH 31.5 MCHC 32.3 RDW 14.8 H Plt Count 435 MPV 9.6 Gran % 53.7 Lymph % (Auto) 31.9 [place] % (Auto) 10.9 H Eos % (Auto) 3.4 Baso % (Auto) 0.1 Gran # 4.74 Lymph # (Auto) 2.8 [place] # (Auto) 1.0 H Eos # (Auto) 0.3 Baso # (Auto) 0.01 Sodium 142 Potassium 3.6 Chloride 111 H Carbon Dioxide 26 Anion Gap 8 L BUN 27 H Creatinine 0.8 Est GFR ( Amer) > 60 Est GFR (Non-Af Amer) > 60 Random Glucose 93 Calcium 8.3 L Phosphorus Magnesium Total Bilirubin 0.3 AST 24 ALT 35 Alkaline Phosphatase 66 Total Protein 5.6 L Albumin 2.8 L Globulin 2.8 Albumin/Globulin Ratio 1.0 L Cortisol AM Sample 5.1 Urine Color Urine Appearance Urine pH Ur Specific [place] Urine Protein Urine Glucose (UA) Urine Ketones Urine Blood Urine Nitrate Urine Bilirubin Urine Urobilinogen Ur Leukocyte Esterase 08/30/18 08/30/18 08:00 08:30 WBC RBC Hgb Hct MCV MCH MCHC RDW Plt Count MPV Gran % Lymph % (Auto) [place] % (Auto) Eos % (Auto) Baso % (Auto) Gran # Lymph # (Auto) [place] # (Auto) Eos # (Auto) Baso # (Auto) Sodium Potassium Chloride Carbon Dioxide Anion Gap BUN Creatinine Est GFR ( Amer) Est GFR (Non-Af Amer) Random Glucose Calcium Phosphorus 3.0 Magnesium 1.7 Total Bilirubin AST ALT Alkaline Phosphatase Total Protein Albumin Globulin Albumin/Globulin Ratio Cortisol AM Sample Urine Color Yellow Urine Appearance Clear Urine pH 6.0 Ur Specific [place] 1.025 Urine Protein Negative Urine Glucose (UA) Negative Urine Ketones Negative Urine Blood Negative Urine Nitrate Negative Urine Bilirubin Negative Urine Urobilinogen 0.2 Ur Leukocyte Esterase Negative Attending/Attestation - Attestation I have personally seen and examined this patient.: Yes I have fully participated in the care of the patient.: Yes I have reviewed all pertinent clinical information: Yes
[2018-08-30] MEDS ORDERED: Dexamethasone 20 mg / 5 ml Inj IVP ONE (07:17)
--- NOTE | 2018-08-30 07:20 | PN ---
DATE: 08/29/2018 SUBJECTIVE: This 58-year-old female remains hospitalized on the cardiac mahoney at the [facility] on the morning of 08/29/2018. I have reviewed this case in detail with high school social science teacher, Remy Romero and brother, Rubio this morning. It has been decided by the patient's brother who is her power of head bucker in the presence of high school social science teacher, Remy Romero that the patient now will be readied for long-term assisted care. The brother has completed a medicaid application on line and confirmation number was provided, number [phone]. The patient remains weak and deconditioned unable to care for herself and at present, family seems unable to take the patient home in care for her on a 24 hours supervisory basis. This case has been reviewed in detail most recently with Dr. Boudreaux from Infectious Disease, Dr. Love from Psychiatry and Dr. Lyle Hamilton from Neurology. She will require cautious 24 hour supervision and remains in a poor mental state with confusion, delirium and overall prognosis remains poor. This was reviewed with her brother who is aware of all of the above. He states that she has been a long-time alcohol and marijuana abuser. Kena Lazo MD
--- NOTE | 2018-08-30 08:28 | RAD ---
Date of service: 08/30/2018 HISTORY: post tlc insertion COMPARISON: 08/22/2018. FINDINGS: Right IJV line terminates in the SVC. LUNGS: The lungs are well inflated and clear. PLEURA: No pleural effusions or pneumothorax. CARDIOVASCULAR: The heart is normal in size. No aortic atherosclerotic calcification present. OSSEOUS STRUCTURES: Within normal limits for the patient's age. VISUALIZED UPPER ABDOMEN: Normal. OTHER FINDINGS: None. IMPRESSION: No active pulmonary disease. Right IJV line terminates in the SVC.
[2018-08-30 08:34] LABS: URINE BILIRUBIN NEGATIVE (NEGATIVE); URINE BLOOD NEGATIVE (NEGATIVE); URINE GLUCOSE (UA) NEGATIVE (NEGATIVE); URINE LEUKOCYTE ESTERASE NEGATIVE Leu/uL (NEGATIVE); URINE PROTEIN NEGATIVE mg/dL (<30 mg/dL); URINE UROBILINOGEN 0.2 E.U./dL (<1 E.U./dL)
[2018-08-30 08:35] LABS: URINE APPEARANCE CLEAR (CLEAR); URINE COLOR YELLOW (YELLOW)
--- NOTE | 2018-08-30 08:50 | CP.CCUPN ---
<John Schmidt - Last Filed: 08/30/18 13:22> CCU Subjective - Physician Review Subjective (Free Text): John Schmidt PGY-1 Progress Note for ICU Patient seen and evaluated at bedside. Hypotensive episodes overnight, at which time patient was transferred to ICU and R-IJ line was placed. Currently, patient is confused but could follow commands at this time. Patient denies chest pain, shortness of breath, abdominal pain, headache, dizziness, blurry vision, cough, leg pain. CCU Objective - Vital Signs / Intake & Output Vital Signs (Last 4 hours): Vital Signs Temp Pulse Resp BP Pulse Ox 08/30/18 08:00 74 13 117/56 L 100 08/30/18 07:30 64 13 128/66 100 08/30/18 07:00 68 14 102/62 100 08/30/18 06:30 77 22 123/67 100 08/30/18 06:06 62 17 133/59 L 100 08/30/18 06:00 57 L 14 124/80 100 08/30/18 05:30 54 L 14 111/75 100 08/30/18 05:10 66 13 96/45 L 100 08/30/18 05:07 62 15 122/72 100 08/30/18 05:04 91 H 32 H 08/30/18 05:00 99 F Intake and Output (Last 8hrs): Intake & Output 08/29/18 08/30/18 08/30/18 22:59 06:59 14:59 Intake Total 0 3000 Balance 0 3000 Intake: IV 0 3000 Left Forearm 3000 Right Forearm 0 Other: # Voids Urine, Voided 1 - Physical Exam Head: Positive for: Other (Bruising on the right scalp) Pupils: Positive for: PERRL Conjunctiva: Positive for: Normal Mouth: Positive for: Moist Mucous Membranes. Negative for: Normal Teeth (Poor dentition) Nose (External): Positive for: Other (Dried up blood from nares.) Neck: Positive for: Other (R-IJ line in place) Respiratory/Chest: Positive for: Clear to Auscultation. Negative for: Respiratory Distress, Wheezes, Rales, Retracting, Rhonchi Cardiovascular: Positive for: Normal S1, S2, Peripheal Pulses Present Abdomen: Negative for: Tenderness, Distention, Peritoneal Signs, Guarding, Mass/Organomegaly Upper Extremity: Positive for: NORMAL PULSES, Other (4/5 motor strength of bilateral upper extremities. ). Negative for: Cyanosis, Edema Lower Extremity: Positive for: NORMAL PULSES, Other (Improved ROM and 4/5 motor strength in LLE, 3/5 in RLE). Negative for: Edema, CALF TENDERNESS Skin: Positive for: Warm, Dry, Other (Bruising on the scalp, right thoracic region, sacrum, lateral maleoli, and bilateral knees (w/ swelling)) Psychiatric: Positive for: Alert. Negative for: Oriented x 3 (AAOx2) - Medications Active Medications: Active Medications Generic Name Dose Route Start Last Admin Trade Name Freq PRN Reason Stop Dose Admin Collagenase 0 gm 08/09/18 10:00 08/29/18 09:02 Santyl TOP 1 appl DAILY MELY Administration Gabapentin 100 mg 08/17/18 14:00 08/29/18 18:03 Neurontin PO 100 mg TID MELY Administration Haloperidol 5 mg 08/22/18 13:30 08/29/18 09:01 Haldol PO 5 mg DAILY MELY Administration Protocol Haloperidol Lactate 2 mg 08/22/18 13:18 08/29/18 11:42 Haldol IVP 2 mg Q4 PRN Administration Agitation Protocol Heparin Sodium (Porcine) 5,000 units 08/23/18 14:00 08/29/18 21:50 Heparin SC 5,000 units Q8 MELY Administration Protocol Sodium Chloride 1,000 mls @ 125 mls/hr 08/30/18 04:40 08/30/18 06:57 Sodium Chloride 0.9% IV 08/30/18 12:39 125 mls/hr .Q8H STA Administration NOREPINEPHRINE BIT/0.9 % NACL 4 mg in 250 mls @ 15 mls/hr 08/30/18 04:46 08/30/18 05:00 Levophed 4 Mg/ 250 Ml Ns Premixed IV 5 mcg/min .[id number] PRN 18.75 mls/hr TITRATE PER MD ORDER Administration Protocol 4 MCG/MIN Meropenem 1 gm in 50 mls @ 100 mls/hr 08/30/18 14:00 Merrem Iv 1 Gm Premix IVPB 08/30/18 22:29 Q8 MELY Protocol Lorazepam 1 mg 08/15/18 12:19 08/22/18 07:30 Ativan IVP 1 mg Q6H PRN Administration Anxiety Protocol Nystatin 0 gm 08/10/18 18:00 08/29/18 18:04 Nystop Topical Powder TOP 1 applic BID MELY Administration Pantoprazole Sodium 40 mg 08/30/18 10:00 Protonix Inj IVP DAILY MELY Quetiapine Fumarate 25 mg 08/15/18 22:00 08/29/18 21:50 Seroquel PO 25 mg HS MELY Administration Protocol - Patient Studies Lab Studies: Lab Studies 08/30/18 08/30/18 08/30/18 Range/Units 08:00 03:26 03:26 WBC 8.8 D (4.5-11.0) 10^3/uL RBC 2.73 L (3.5-6.1) 10^6/uL Hgb 8.6 L (12.0-16.0) g/dL Hct 26.6 L (36.0-48.0) % MCV 97.4 (80.0-105.0) fl MCH 31.5 (25.0-35.0) pg MCHC 32.3 (31.0-37.0) g/dl RDW 14.8 H (11.5-14.5) % Plt Count 435 (120.0-450.0) 10^3/uL MPV 9.6 (7.0-11.0) fl Gran % 53.7 (50.0-68.0) % Lymph % (Auto) 31.9 (22.0-35.0) % Robeson % (Auto) 10.9 H (1.0-6.0) % Eos % (Auto) 3.4 (1.5-5.0) % Baso % (Auto) 0.1 (0.0-3.0) % Gran # 4.74 (1.4-6.5) Lymph # (Auto) 2.8 (1.2-3.4) Robeson # (Auto) 1.0 H (0.1-0.6) Eos # (Auto) 0.3 (0.0-0.7) Baso # (Auto) 0.01 (0.0-2.0) K/mm3 Sodium 142 (132-148) mmol/L Potassium 3.6 (3.6-5.0) mmol/L Chloride 111 H (98-107) mmol/L Carbon Dioxide 26 (21-33) mmol/L Anion Gap 8 L (10-20) BUN 27 H (7-21) mg/dL Creatinine 0.8 (0.7-1.2) mg/dl Est GFR ( Amer) > 60 Est GFR (Non-Af Amer) > 60 Random Glucose 93 (70-110) mg/dL Calcium 8.3 L (8.4-10.5) mg/dL Total Bilirubin 0.3 (0.2-1.3) mg/dL AST 24 (14-36) U/L ALT 35 (7-56) U/L Alkaline Phosphatase 66 (38-126) U/L Total Protein 5.6 L (5.8-8.3) g/dL Albumin 2.8 L (3.0-4.8) g/dL Globulin 2.8 gm/dL Albumin/Globulin Ratio 1.0 L (1.1-1.8) Urine Color Yellow (YELLOW) Urine Appearance Clear (CLEAR) Urine pH 6.0 (4.7-8.0) Ur Specific Shelby 1.025 (1.005-1.035) Urine Protein Negative (<30 mg/dL) mg/dL Urine Glucose (UA) Negative (NEGATIVE) mg/dL Urine Ketones Negative (NEGATIVE) mg/dL Urine Blood Negative (NEGATIVE) Urine Nitrate Negative (NEGATIVE) Urine Bilirubin Negative (NEGATIVE) Urine Urobilinogen 0.2 (<1 E.U./dL) E.U./dL Ur Leukocyte Esterase Negative (NEGATIVE) Thomas/uL Laboratory Results - last 24 hr 08/30/18 08/30/18 08/30/18 03:26 03:26 08:00 WBC 8.8 D RBC 2.73 L Hgb 8.6 L Hct 26.6 L MCV 97.4 MCH 31.5 MCHC 32.3 RDW 14.8 H Plt Count 435 MPV 9.6 Gran % 53.7 Lymph % (Auto) 31.9 Robeson % (Auto) 10.9 H Eos % (Auto) 3.4 Baso % (Auto) 0.1 Gran # 4.74 Lymph # (Auto) 2.8 Robeson # (Auto) 1.0 H Eos # (Auto) 0.3 Baso # (Auto) 0.01 Sodium 142 Potassium 3.6 Chloride 111 H Carbon Dioxide 26 Anion Gap 8 L BUN 27 H Creatinine 0.8 Est GFR ( Amer) > 60 Est GFR (Non-Af Amer) > 60 Random Glucose 93 Calcium 8.3 L Total Bilirubin 0.3 AST 24 ALT 35 Alkaline Phosphatase 66 Total Protein 5.6 L Albumin 2.8 L Globulin 2.8 Albumin/Globulin Ratio 1.0 L Urine Color Yellow Urine Appearance Clear Urine pH 6.0 Ur Specific Shelby 1.025 Urine Protein Negative Urine Glucose (UA) Negative Urine Ketones Negative Urine Blood Negative Urine Nitrate Negative Urine Bilirubin Negative Urine Urobilinogen 0.2 Ur Leukocyte Esterase Negative Radiology Impressions: Radiology Impressions Chest X-Ray 08/30/18 06:27 IMPRESSION: No active pulmonary disease. Right IJV line terminates in the SVC. Fingerstick Blood Sugar Results: 150 Review of Systems - Review of Systems Review of Systems: 12 point ROS completed and negative except as described in HPI. Critical Care Progress Note - Nutrition Nutrition: Nutrition Category Date Time Status Regular Diet [DIET] Diets 08/11/18 Breakfast Ordered Assessment/Plan - Assessment and Plan (Free Text) Assessment: 58 year old female with past medical history of asthma and DVT presented last night with hypotension. Patient's blood pressure was found to be in the 80s/50s and was given 2 liters of fluid overnight to which the blood pressure did not initially correct. Currently admitted to ICU for management of acute hypotensive episode unresponsive to aggressive fluid resuscitation, initially requiring pressor support. At this time, Plan: Neuro 08/22/18 CT head shows No mass effect or edema. No atrophy or chronic microvascular ischemic changes. No intracranial hemmorhage. 08/22/18 cervical xray shows normal cervical spine radiographs 08/22/18 Brain MRI- no gross abnormality noted - Patient confused at this time; Avoid sedative medications, video monitoring in place - Reorient as necessary - Neuro on consult - Dr. Joy dimas appreciated - Psych on consult - Dr. Javier dimas appreciated - AAOx2; following simple commands; moving all extremities spontaneously - Reorient as necessary - Hold Seroquel, Hold Ativan, Hold Haldol MELY due to patient's hypotension - Continue Haldol 2 Q4 PRN Pulm - 08/22/18 CXR with minimally questionable RML infiltrate, Normal cardiac size. No pulmonary vascular congestion. - 08/30/17 - CXR for central line placement shows good line placement; no infiltrate appreciated - Maintaining O2 Sat well, Protecting airway, Hold off sedatives - No signs of respiratory distress. - Patient is saturating well on room air. - Maintain O2 saturation > 92%. - Elevate bed to 30 degrees Cardio - Hypotensive + Borderline Bradycardic - Unresponsive to 3L bolus, currently NS @ 125 cc/hr - Central Line placed; Started on levophed, currently at 4. - Begin Midodrine 5 mg PO TID for pressure support - Blood pressures improved post levophed administration - One time dose of decadron 20 mg - Maintain MAP>65. - Monitor for S/S of HD instability Hem/Onc - Hb appears to be downtrending - Maintain Hb >7; Tranfuse PRN GI/Endo - Maintain euglycemia - glucose between 140-180 - as per sugar trial - Maintain Normothermia - Follow up HIDA scan results for possible etiology of infection causing SIRS i.e. acalculous cholecystitis - Follow up cortisol level - C/w w/ PO diet - Tolerating diet - Accuchecks Nephro - Walden inserted; monitor I/O - Was retaining approx 400 on 08/29 - Currently NS @ 125 cc/hr - Psuedohypocalcemia, Ca corrected to 9.2 - Replete electrolytes as needed. - Maintain euvolemia. ID - Given stat dose Vancomycin overnight - UA, UCX, BCX, ESR/CRP pending - Follow up HIDA scan results for possible etiology of infection causing SIRS - One dose of vancomycin given and started on meropenem 1 gQ8 - ID previously consulted, appreciate recs - Afebrile MSK - 08/22/18 thoracolumbar x-ray after fall showed Normal radiographs of the thoracic spine. - Verruca left heel - stable, no sign of infection, cont local care MWF, multipodous boots - Dr. Ramírez -podiatry on consult - Pain control with Tylenol q6 DVT ppx - Heparin 5000 q8 - SCDs in place GI ppx - Protonix 40 mg daily Dispo: Prepared for [facility] care per Dr. Lazo, F/U SW. Likely downgrade today. Patient seen, case reviewed and plan approved by Dr. Max Dover. John Schmidt, PGY-1 <Jonny Dover - Last Filed: 08/30/18 14:25> CCU Objective - Vital Signs / Intake & Output Vital Signs (Last 4 hours): Vital Signs Pulse Resp BP Pulse Ox 08/30/18 13:31 88 19 116/43 L 98 08/30/18 13:26 87 14 96/56 L 91 L 08/30/18 12:00 77 16 08/30/18 11:30 77 12 88/46 L 98 08/30/18 11:11 75 16 84/48 L 97 08/30/18 11:01 88 20 83/50 L 99 08/30/18 10:38 78 20 97/51 L 98 08/30/18 10:30 75 15 94/44 L 96 Intake and Output (Last 8hrs): Intake & Output 08/29/18 08/30/18 08/30/18 22:59 06:59 14:59 Intake Total 0 3000 Balance 0 3000 Intake: IV 0 3000 Left Forearm 3000 Right Forearm 0 Other: # Voids Urine, Voided 1 - Medications Active Medications: Active Medications Generic Name Dose Route Start Last Admin Trade Name Freq PRN Reason Stop Dose Admin Collagenase 0 gm 08/09/18 10:00 08/30/18 09:53 Santyl TOP 1 appl DAILY MELY Administration Gabapentin 100 mg 08/17/18 14:00 08/30/18 10:00 Neurontin PO Not Given TID MELY Haloperidol 5 mg 08/22/18 13:30 08/29/18 09:01 Haldol PO 5 mg DAILY MELY Administration Protocol Haloperidol Lactate 2 mg 08/22/18 13:18 08/29/18 11:42 Haldol IVP 2 mg Q4 PRN Administration Agitation Protocol Heparin Sodium (Porcine) 5,000 units 08/23/18 14:00 08/30/18 13:39 Heparin SC 5,000 units Q8 MELY Administration Protocol NOREPINEPHRINE BIT/0.9 % NACL 4 mg in 250 mls @ 15 mls/hr 08/30/18 04:46 08/30/18 05:00 Levophed 4 Mg/ 250 Ml Ns Premixed IV 5 mcg/min .[id number] PRN 18.75 mls/hr TITRATE PER MD ORDER Administration Protocol 4 MCG/MIN Meropenem 1 gm in 50 mls @ 100 mls/hr 08/30/18 14:00 08/30/18 13:39 Merrem Iv 1 Gm Premix IVPB 08/30/18 22:29 100 mls/hr Q8 MELY Administration Protocol Lorazepam 1 mg 08/15/18 12:19 08/22/18 07:30 Ativan IVP 1 mg Q6H PRN Administration Anxiety Protocol Midodrine 5 mg 08/30/18 14:00 Proamatine PO TID MELY Nystatin 0 gm 08/10/18 18:00 08/30/18 09:53 Nystop Topical Powder TOP 1 applic BID MELY Administration Pantoprazole Sodium 40 mg 08/30/18 10:00 08/30/18 09:52 Protonix Inj IVP 40 mg DAILY MELY Administration Quetiapine Fumarate 25 mg 08/15/18 22:00 08/29/18 21:50 Seroquel PO 25 mg HS MELY Administration Protocol - Patient Studies Lab Studies: Lab Studies 08/30/18 08/30/18 08/30/18 Range/Units 08:30 08:00 03:26 WBC (4.5-11.0) 10^3/uL RBC (3.5-6.1) 10^6/uL Hgb (12.0-16.0) g/dL Hct (36.0-48.0) % MCV (80.0-105.0) fl MCH (25.0-35.0) pg MCHC (31.0-37.0) g/dl RDW (11.5-14.5) % Plt Count (120.0-450.0) 10^3/uL MPV (7.0-11.0) fl Gran % (50.0-68.0) % Lymph % (Auto) (22.0-35.0) % Robeson % (Auto) (1.0-6.0) % Eos % (Auto) (1.5-5.0) % Baso % (Auto) (0.0-3.0) % Gran # (1.4-6.5) Lymph # (Auto) (1.2-3.4) Robeson # (Auto) (0.1-0.6) Eos # (Auto) (0.0-0.7) Baso # (Auto) (0.0-2.0) K/mm3 Sodium (132-148) mmol/L Potassium (3.6-5.0) mmol/L Chloride (98-107) mmol/L Carbon Dioxide (21-33) mmol/L Anion Gap (10-20) BUN (7-21) mg/dL Creatinine (0.7-1.2) mg/dl Est GFR ( Amer) Est GFR (Non-Af Amer) Random Glucose (70-110) mg/dL Calcium (8.4-10.5) mg/dL Phosphorus 3.0 (2.5-4.5) mg/dL Magnesium 1.7 (1.7-2.2) mg/dL Total Bilirubin (0.2-1.3) mg/dL AST (14-36) U/L ALT (7-56) U/L Alkaline Phosphatase (38-126) U/L Total Protein (5.8-8.3) g/dL Albumin (3.0-4.8) g/dL Globulin gm/dL Albumin/Globulin Ratio (1.1-1.8) Cortisol AM Sample 5.1 (4.46-22.7) ug/dL Urine Color Yellow (YELLOW) Urine Appearance Clear (CLEAR) Urine pH 6.0 (4.7-8.0) Ur Specific Shelby 1.025 (1.005-1.035) Urine Protein Negative (<30 mg/dL) mg/dL Urine Glucose (UA) Negative (NEGATIVE) mg/dL Urine Ketones Negative (NEGATIVE) mg/dL Urine Blood Negative (NEGATIVE) Urine Nitrate Negative (NEGATIVE) Urine Bilirubin Negative (NEGATIVE) Urine Urobilinogen 0.2 (<1 E.U./dL) E.U./dL Ur Leukocyte Esterase Negative (NEGATIVE) Thomas/uL 08/30/18 08/30/18 Range/Units 03:26 03:26 WBC 8.8 D (4.5-11.0) 10^3/uL RBC 2.73 L (3.5-6.1) 10^6/uL Hgb 8.6 L (12.0-16.0) g/dL Hct 26.6 L (36.0-48.0) % MCV 97.4 (80.0-105.0) fl MCH 31.5 (25.0-35.0) pg MCHC 32.3 (31.0-37.0) g/dl RDW 14.8 H (11.5-14.5) % Plt Count 435 (120.0-450.0) 10^3/uL MPV 9.6 (7.0-11.0) fl Gran % 53.7 (50.0-68.0) % Lymph % (Auto) 31.9 (22.0-35.0) % Robeson % (Auto) 10.9 H (1.0-6.0) % Eos % (Auto) 3.4 (1.5-5.0) % Baso % (Auto) 0.1 (0.0-3.0) % Gran # 4.74 (1.4-6.5) Lymph # (Auto) 2.8 (1.2-3.4) Robeson # (Auto) 1.0 H (0.1-0.6) Eos # (Auto) 0.3 (0.0-0.7) Baso # (Auto) 0.01 (0.0-2.0) K/mm3 Sodium 142 (132-148) mmol/L Potassium 3.6 (3.6-5.0) mmol/L Chloride 111 H (98-107) mmol/L Carbon Dioxide 26 (21-33) mmol/L Anion Gap 8 L (10-20) BUN 27 H (7-21) mg/dL Creatinine 0.8 (0.7-1.2) mg/dl Est GFR ( Amer) > 60 Est GFR (Non-Af Amer) > 60 Random Glucose 93 (70-110) mg/dL Calcium 8.3 L (8.4-10.5) mg/dL Phosphorus (2.5-4.5) mg/dL Magnesium (1.7-2.2) mg/dL Total Bilirubin 0.3 (0.2-1.3) mg/dL AST 24 (14-36) U/L ALT 35 (7-56) U/L Alkaline Phosphatase 66 (38-126) U/L Total Protein 5.6 L (5.8-8.3) g/dL Albumin 2.8 L (3.0-4.8) g/dL Globulin 2.8 gm/dL Albumin/Globulin Ratio 1.0 L (1.1-1.8) Cortisol AM Sample (4.46-22.7) ug/dL Urine Color (YELLOW) Urine Appearance (CLEAR) Urine pH (4.7-8.0) Ur Specific Shelby (1.005-1.035) Urine Protein (<30 mg/dL) mg/dL Urine Glucose (UA) (NEGATIVE) mg/dL Urine Ketones (NEGATIVE) mg/dL Urine Blood (NEGATIVE) Urine Nitrate (NEGATIVE) Urine Bilirubin (NEGATIVE) Urine Urobilinogen (<1 E.U./dL) E.U./dL Ur Leukocyte Esterase (NEGATIVE) Thomas/uL Laboratory Results - last 24 hr 08/30/18 08/30/18 08/30/18 03:26 03:26 03:26 WBC 8.8 D RBC 2.73 L Hgb 8.6 L Hct 26.6 L MCV 97.4 MCH 31.5 MCHC 32.3 RDW 14.8 H Plt Count 435 MPV 9.6 Gran % 53.7 Lymph % (Auto) 31.9 Robeson % (Auto) 10.9 H Eos % (Auto) 3.4 Baso % (Auto) 0.1 Gran # 4.74 Lymph # (Auto) 2.8 Robeson # (Auto) 1.0 H Eos # (Auto) 0.3 Baso # (Auto) 0.01 Sodium 142 Potassium 3.6 Chloride 111 H Carbon Dioxide 26 Anion Gap 8 L BUN 27 H Creatinine 0.8 Est GFR ( Amer) > 60 Est GFR (Non-Af Amer) > 60 Random Glucose 93 Calcium 8.3 L Phosphorus Magnesium Total Bilirubin 0.3 AST 24 ALT 35 Alkaline Phosphatase 66 Total Protein 5.6 L Albumin 2.8 L Globulin 2.8 Albumin/Globulin Ratio 1.0 L Cortisol AM Sample 5.1 Urine Color Urine Appearance Urine pH Ur Specific Shelby Urine Protein Urine Glucose (UA) Urine Ketones Urine Blood Urine Nitrate Urine Bilirubin Urine Urobilinogen Ur Leukocyte Esterase 08/30/18 08/30/18 08:00 08:30 WBC RBC Hgb Hct MCV MCH MCHC RDW Plt Count MPV Gran % Lymph % (Auto) Robeson % (Auto) Eos % (Auto) Baso % (Auto) Gran # Lymph # (Auto) Robeson # (Auto) Eos # (Auto) Baso # (Auto) Sodium Potassium Chloride Carbon Dioxide Anion Gap BUN Creatinine Est GFR ( Amer) Est GFR (Non-Af Amer) Random Glucose Calcium Phosphorus 3.0 Magnesium 1.7 Total Bilirubin AST ALT Alkaline Phosphatase Total Protein Albumin Globulin Albumin/Globulin Ratio Cortisol AM Sample Urine Color Yellow Urine Appearance Clear Urine pH 6.0 Ur Specific Shelby 1.025 Urine Protein Negative Urine Glucose (UA) Negative Urine Ketones Negative Urine Blood Negative Urine Nitrate Negative Urine Bilirubin Negative Urine Urobilinogen 0.2 Ur Leukocyte Esterase Negative Radiology Impressions: Radiology Impressions Chest X-Ray 08/30/18 06:27 IMPRESSION: No active pulmonary disease. Right IJV line terminates in the SVC. Critical Care Progress Note - Nutrition Nutrition: Nutrition Category Date Time Status Regular Diet [DIET] Diets 08/11/18 Breakfast Ordered Addendum Addendum: 08/30/18 14:24 ICU Attending Addendum Patient seen and examined. Case reviewed on round with housestaff. Agree with resident note above with the following additions/exceptions: 57F with Mhx of etOH abuse, DVT PE on Coumadin brought to ICU with concerns of possible sepsis. Likely from dehydration responded well to fluid resuscitation no longer requiring pressors runs low BP, would start midodrine 5mg TID Mentation dramatically improved as well. No longer requires ICU monitoring ok to transfer out of ICU Rest of care as above Jonny Dover MD Pulmonary Critical Care and Sleep Medicine
[2018-08-30] MEDS: Nystatin 100,000 Units/gm Topical Pow(15 gm) TOP SCH ×2 (09:53→17:09)
[2018-08-30] MEDS: Collagenase 250 Units/gm Ointment(30 gm) TOP SCH (09:53)
[2018-08-30] MEDS: Meropenem IV 1 gm in NS 1 GM/50 ML BAG IVPB SCH ×2 (13:39→21:30)
--- NOTE | 2018-08-30 15:07 | PN ---
DATE: 08/30/2018 SUBJECTIVE: This 57-year-old female was examined in critical care unit bed #1 on the morning of 08/30/2018. This case was reviewed in detail with coding team lead, Dr. Jonny Dover, medical doctor. The patient was transferred to the ICU when she was noted to be asymptomatic but hypotensive. She was given a fluid challenge and at present is lying in her bed, comfortable denying any fever, chills, chest pain or shortness of breath with temperature of 99, respirations 14, pulse 62 and blood pressure 123/87 and a pulse ox of 100%. Physical exam is otherwise unchanged. LABORATORY DATA: White count 8800, hemoglobin 8.6, hematocrit 26.6, platelets 435,000. Sodium 142, K 3.6, chloride 111, bicarb 29, BUN 27, creatinine 0.8, random blood sugar 93. Phosphorous 3, magnesium 1.7, bilirubin 0.3, AST 24, ALT 35, alk phos 66. IMPRESSION AND PLAN: A 57-year-old female admitted with septic shock, respiratory failure that required intubation and comorbidities of chronic neuropathy, history of alcohol and marijuana misuse and abuse, now with delusional psychosis and marked deconditioning. This case was reviewed in detail with social services coordinator, Remy Romero. He is working with the family regarding mcc placement. As discussed with Dr. Dover, the patient is clinically stable and can be transferred to the [facility] which she can be observed and remain on fall precautions. She continues on local wound care including Santyl. She will continue to receive subcutaneous heparin and her Haldol and Seroquel have been placed on hold by Dr. Lyle Hamilton and the patient has been started on meropenem and IV vancomycin while continuing Neurontin pending further evaluation while being started on ProAmatine 5 mg p.o. t.i.d. as well. All of the above was reviewed with Dr. Jonny Dover. All questions were answered. Kena Lazo MD
--- NOTE | 2018-08-30 18:39 | PN ---
DATE: 08/30/2018 SUBJECTIVE: The patient is seen in [facility], bed 1 earlier. PHYSICAL EXAMINATION: VITAL SIGNS: The patient's temperature is 98, blood pressure is 116/40, respiratory rate of 18. HEENT: Unremarkable. NECK: Supple. LUNGS: Have decreased breath sounds. HEART: Normal S1 and S2. ABDOMEN: Soft. LABORATORY EXAMINATION: Reveals a white count of 8.8 with urinalysis . ASSESSMENT AND PLAN: This is a 58-year-old female seen earlier today, status post systemic inflammatory response syndrome and hypothermia. No evidence of sepsis or bacterial infection in the patient with history of deep venous thrombosis who initially had septic shock, ventilator-dependent respiratory failure, currently now off of antibiotics, afebrile, and normal white count. The patient is at risk for developing nosocomial infections. Review of orders reveals the patient is off of antibiotics. We will follow with you. Ashkan Bah MD
--- NOTE | 2018-08-31 08:41 | PN ---
DATE: 08/31/2018 SUBJECTIVE: The patient is in bed in no acute distress, nontoxic. PHYSICAL EXAMINATION: VITAL SIGNS: Temperature is 98, blood pressure is 104/70, respiratory rate of 18. HEENT: Unremarkable. NECK: Supple. LUNGS: Have decreased breath sounds. HEART: Normal S1, S2. ABDOMEN: Soft. LABORATORY DATA: Laboratory examination reveals a white count of 8.8, hemoglobin of 8, platelets of 435. BUN of 27, creatinine of 0.8. Procalcitonin is less than 0.05; and urinalysis is noted. Toxicology is noted. Serology is noted. Microbiology is noted. Review of orders reveals the patient to be off of antibiotics. ASSESSMENT AND PLAN: This is a 57-year-old female seen earlier today, status post SIRS, systemic inflammatory response syndrome, hypothermia. No evidence of any infection and bacterial infection or sepsis in a patient who has a history of deep vein thrombosis, who initially did have septic shock, ventilator-dependent respiratory failure, currently off of antibiotics, afebrile, with white count of 8.8 as of yesterday and we will follow. The patient is at risk for developing nosocomial infections. Patient is scheduled for transfer. Ashkan Bah MD
[2018-08-31] MEDS: Collagenase 250 Units/gm Ointment(30 gm) TOP SCH (09:22)
[2018-08-31] MEDS: Nystatin 100,000 Units/gm Topical Pow(15 gm) TOP SCH ×2 (09:23→18:38)
--- NOTE | 2018-08-31 09:51 | NM ---
Date of service: 08/30/2018 PROCEDURE: Nuclear Medicine Hepatobiliary Scan HISTORY: abnormal U/S COMPARISON: 08/02/2018 hepatobiliary scan. TECHNIQUE: 5.2 mCi of technetium 99m Mebrofenin was administered intravenously. Planar images of the abdomen were obtained at 5 min intervals to 60 mins. Delayed images were also obtained. FINDINGS: LIVER: Timely and homogenous uptake. COMMON BILE DUCT: identified at 15 mins. GALLBLADDER: identified at 15 mins. SMALL BOWEL: Identified at 15 mins. IMPRESSION: Normal Hepatobiliary Scan. The cystic duct is patent. No significant interval change compared to the prior examination(s).
[2018-09-01] MEDS: Nystatin 100,000 Units/gm Topical Pow(15 gm) TOP SCH (10:05)
--- NOTE | 2018-09-01 12:46 | PN ---
DATE: 09/01/2018 SUBJECTIVE: The patient is in bed, in no acute distress. PHYSICAL EXAMINATION: VITAL SIGNS: Temperature is 98, blood pressure is 90/50, respiratory rate is 18, heart rate of 55. HEENT: Unremarkable. NECK: Supple. LUNGS: Have decreased breath sounds. HEART: Normal S1, S2. ABDOMEN: Soft, nontender. LABORATORY DATA: Examination reveals a white count of 8, hemoglobin of 8, platelets of 435. Coagulation is noted . Chemistries reveal a BUN of 27, creatinine of 0.8. MEDICATIONS: Review of orders reveals the patient to be off antibiotics. ASSESSMENT AND PLAN: A 57-year-old female who was seen earlier today with systemic inflammatory response syndrome. The patient had hypothermia. At this point, no evidence of bacterial infection and no evidence of sepsis. The patient did have a history of deep vein thrombosis, initially had septic shock, ventilatory-dependent respiratory failure, off antibiotics at this time, afebrile. The patient is at risk for developing nosocomial infections. Ashkan Bah MD
[2018-09-02] MEDS: Pantoprazole 40 mg EC Tab PO SCH (08:34)
--- NOTE | 2018-09-02 08:48 | CP.PCM.PN ---
<Brook Buckner - Last Filed: 09/02/18 11:53> Subjective - Date & Time of Evaluation Date of Evaluation: 09/02/18 Time of Evaluation: 08:46 - Subjective Subjective: Podiatry Progress Note: Dr. Ramírez 58F patient seen and evaluated left heel ulcer Patient resting comfortably and in NAD. Unable to elicit history at this time secondary to patient mental status. Per nursing notes, no acute events overnight. Objective - Vital Signs/Intake and Output Vital Signs (last 24 hours): Temp Pulse Resp BP Pulse Ox 98.9 F 71 18 93/52 L 99 09/02/18 06:00 09/02/18 06:00 09/02/18 06:00 09/02/18 06:00 09/02/18 06:00 Intake and Output: 09/02/18 09/02/18 06:59 18:59 Intake Total 180 Output Total 1250 Balance -1070 - Medications Medications: Current Medications Collagenase (Santyl) 0 gm TOP DAILY [facility] Last Admin: 08/31/18 09:22 Dose: 1 appl Haloperidol (Haldol) 5 mg PO DAILY [facility]; Protocol Last Admin: 08/29/18 09:01 Dose: 5 mg Haloperidol Lactate (Haldol) 2 mg IVP Q4 PRN; Protocol PRN Reason: Agitation Last Admin: 08/29/18 11:42 Dose: 2 mg Heparin Sodium (Porcine) (Heparin) 5,000 units SC Q8 [facility]; Protocol Last Admin: 09/02/18 07:09 Dose: 5,000 units Lorazepam (Ativan) 1 mg IVP Q6H PRN; Protocol PRN Reason: Anxiety Last Admin: 08/22/18 07:30 Dose: 1 mg Midodrine (Proamatine) 5 mg PO TID [facility] Last Admin: 09/01/18 19:35 Dose: 5 mg Nystatin (Nystop Topical Powder) 0 gm TOP BID [facility] Last Admin: 09/01/18 10:05 Dose: 1 applic Pantoprazole Sodium (Protonix Ec Tab) 40 mg PO ACB [facility] Last Admin: 09/02/18 08:34 Dose: 40 mg Quetiapine Fumarate (Seroquel) 25 mg PO HS [facility]; Protocol Last Admin: 08/29/18 21:50 Dose: 25 mg - Labs Labs: 08/30/18 03:26 08/30/18 03:26 PT 12.5 SECONDS (9.4-12.5) 08/22/18 11:31 INR 1.09 08/22/18 11:31 APTT 31.0 Seconds (25.1-36.5) 08/22/18 11:31 - Constitutional Appears: Well, Non-toxic, No Acute Distress - Head Exam Head Exam: ATRAUMATIC - Eye Exam Eye Exam: Normal appearance Pupil Exam: NORMAL ACCOMODATION - ENT Exam ENT Exam: Mucous Membranes Moist - Extremities Exam Additional comments: B/L LE focused exam: Vasc: DP/PT 2/4 b/l. Cap refill < 3 sec to all digits, TG Warm to cool from proximal to distal b/l, No edema noted b/l. Ortho: No pain upon palpation to left foot medial heel wound, cavus foot type bilaterally Neuro: Gross and protective sensation intact. Derm: L Biopsy site 100% granular base, no purulence, no malodor, no drainage, no bleeding, no erythema, no probe to bone. No clinical signs of active infection. Additional superficial ulceration appreciated to the lateral aspect of the R foot with fibrogranular base, no purulence, no drainage, no clinical signs of infection. Assessment and Plan - Assessment and Plan (Free Text) Assessment: 58 yo female with L leg ulcer Plan: Patient seen and evaluated at bedside with Dr. Schroeder Afebrile Pathology report L heel mass; infarcted verruca Intra-op pathology report; no malignancy LE RADHA exam; relatively normal RADHA and PVR examination at rest, possible mild b/l tibial disease LE MRI taken; limited postoperative changes seen at the posterior and inferior heel soft tissues without evident of OM Left foot 3 views x-ray: subcutaneous calcified mass, CT w/o contrast recommended. LE venous duplex (07/23): No evidence of DVT Local wound care: B/L foot wounds dressed with optifoam Stable for discharge from podiatry point of view <Zac Schroeder - Last Filed: 09/02/18 17:44> Objective - Vital Signs/Intake and Output Vital Signs (last 24 hours): Temp Pulse Resp BP Pulse Ox 98.8 F 83 18 95/57 L 99 09/02/18 12:00 09/02/18 12:00 09/02/18 12:00 09/02/18 12:00 09/02/18 06:00 Intake and Output: 09/02/18 09/02/18 06:59 18:59 Intake Total 180 Output Total 1250 Balance -1070 - Medications Medications: Current Medications Collagenase (Santyl) 0 gm TOP DAILY [facility] Last Admin: 08/31/18 09:22 Dose: 1 appl Haloperidol (Haldol) 5 mg PO DAILY [facility]; Protocol Last Admin: 08/29/18 09:01 Dose: 5 mg Haloperidol Lactate (Haldol) 2 mg IVP Q4 PRN; Protocol PRN Reason: Agitation Last Admin: 08/29/18 11:42 Dose: 2 mg Heparin Sodium (Porcine) (Heparin) 5,000 units SC Q8 [facility]; Protocol Last Admin: 09/02/18 14:51 Dose: 5,000 units Lorazepam (Ativan) 1 mg IVP Q6H PRN; Protocol PRN Reason: Anxiety Last Admin: 08/22/18 07:30 Dose: 1 mg Midodrine (Proamatine) 5 mg PO TID [facility] Last Admin: 09/02/18 14:51 Dose: 5 mg Nystatin (Nystop Topical Powder) 0 gm TOP BID [facility] Last Admin: 09/02/18 09:44 Dose: 1 applic Pantoprazole Sodium (Protonix Ec Tab) 40 mg PO ACB [facility] Last Admin: 09/02/18 08:34 Dose: 40 mg Quetiapine Fumarate (Seroquel) 25 mg PO HS [facility]; Protocol Last Admin: 08/29/18 21:50 Dose: 25 mg - Labs Labs: 08/30/18 03:26 08/30/18 03:26 PT 12.5 SECONDS (9.4-12.5) 08/22/18 11:31 INR 1.09 08/22/18 11:31 APTT 31.0 Seconds (25.1-36.5) 08/22/18 11:31 Attending/Attestation - Attestation I have personally seen and examined this patient.: Yes I have fully participated in the care of the patient.: Yes I have reviewed all pertinent clinical information, including history, physical exam and plan: Yes
[2018-09-02] MEDS: Nystatin 100,000 Units/gm Topical Pow(15 gm) TOP SCH ×2 (09:44→18:00)
--- NOTE | 2018-09-02 15:08 | CP.PCM.PN ---
Subjective - Date & Time of Evaluation Date of Evaluation: 09/02/18 Time of Evaluation: 13:55 - Subjective Subjective: Afebrile, not agitated, no diarrhea, no nausea. Objective - Vital Signs/Intake and Output Vital Signs (last 24 hours): Temp Pulse Resp BP Pulse Ox 98.8 F 83 18 95/57 L 99 09/02/18 12:00 09/02/18 12:00 09/02/18 12:00 09/02/18 12:00 09/02/18 06:00 Intake and Output: 09/02/18 09/02/18 06:59 18:59 Intake Total 180 Output Total 1250 Balance -1070 - Medications Medications: Current Medications Collagenase (Santyl) 0 gm TOP DAILY [facility] Last Admin: 08/31/18 09:22 Dose: 1 appl Haloperidol (Haldol) 5 mg PO DAILY [facility]; Protocol Last Admin: 08/29/18 09:01 Dose: 5 mg Haloperidol Lactate (Haldol) 2 mg IVP Q4 PRN; Protocol PRN Reason: Agitation Last Admin: 08/29/18 11:42 Dose: 2 mg Heparin Sodium (Porcine) (Heparin) 5,000 units SC Q8 [facility]; Protocol Last Admin: 09/02/18 14:51 Dose: 5,000 units Lorazepam (Ativan) 1 mg IVP Q6H PRN; Protocol PRN Reason: Anxiety Last Admin: 08/22/18 07:30 Dose: 1 mg Midodrine (Proamatine) 5 mg PO TID [facility] Last Admin: 09/02/18 14:51 Dose: 5 mg Nystatin (Nystop Topical Powder) 0 gm TOP BID [facility] Last Admin: 09/02/18 09:44 Dose: 1 applic Pantoprazole Sodium (Protonix Ec Tab) 40 mg PO ACB [facility] Last Admin: 09/02/18 08:34 Dose: 40 mg Quetiapine Fumarate (Seroquel) 25 mg PO HS [facility]; Protocol Last Admin: 08/29/18 21:50 Dose: 25 mg - Labs Labs: 08/30/18 03:26 08/30/18 03:26 PT 12.5 SECONDS (9.4-12.5) 08/22/18 11:31 INR 1.09 08/22/18 11:31 APTT 31.0 Seconds (25.1-36.5) 08/22/18 11:31 - Constitutional Appears: Chronically Ill - Head Exam Head Exam: NORMAL INSPECTION - Respiratory Exam Respiratory Exam: Decreased Breath Sounds - Cardiovascular Exam Cardiovascular Exam: +S1, +S2 - GI/Abdominal Exam GI & Abdominal Exam: Soft. absent: Tenderness Assessment and Plan - Assessment and Plan (Free Text) Plan: Assessment S/P SIRS with hypothermia, no evidence of sepsis or bacterial infection delirium S/P Septic shock S/P VDRF (now extubated) due to colitis and pancreatitis witho ut blockage of biliary tract disease, now with pseudomembranous colitis S/P debridement of left foot ulcer related to peripheral arterial disease history of DVT asthma Plan continue to monitor off antibiotics since she is at risk for hospital-acquired infections overall prognosis is poor
[2018-09-03] MEDS: Pantoprazole 40 mg EC Tab PO SCH (08:30)
--- NOTE | 2018-09-03 10:18 | CP.PCM.PN ---
<Luca Whitmore - Last Filed: 09/03/18 10:16> Subjective - Date & Time of Evaluation Date of Evaluation: 09/03/18 Time of Evaluation: 10:16 - Subjective Subjective: Podiatry Progress Note for Dr. Schroeder 58F patient seen and evaluated with Dr. Schroeder for left heel ulcer. Patient resting comfortably and in NAD. Unable to elicit history at this time secondary to patient mental status. Per nursing notes, no acute events overnight. Objective - Vital Signs/Intake and Output Vital Signs (last 24 hours): Temp Pulse Resp BP Pulse Ox 98.3 F 68 18 90/53 L 98 09/03/18 05:59 09/03/18 05:59 09/03/18 05:59 09/03/18 05:59 09/03/18 05:59 Intake and Output: 09/03/18 09/03/18 06:59 18:59 Intake Total 1420 Output Total 2600 Balance -1180 - Medications Medications: Current Medications Collagenase (Santyl) 0 gm TOP DAILY [facility] Last Admin: 08/31/18 09:22 Dose: 1 appl Haloperidol (Haldol) 5 mg PO DAILY [facility]; Protocol Last Admin: 08/29/18 09:01 Dose: 5 mg Haloperidol Lactate (Haldol) 2 mg IVP Q4 PRN; Protocol PRN Reason: Agitation Last Admin: 08/29/18 11:42 Dose: 2 mg Heparin Sodium (Porcine) (Heparin) 5,000 units SC Q8 [facility]; Protocol Last Admin: 09/03/18 06:08 Dose: 5,000 units Lorazepam (Ativan) 1 mg IVP Q6H PRN; Protocol PRN Reason: Anxiety Last Admin: 08/22/18 07:30 Dose: 1 mg Midodrine (Proamatine) 5 mg PO TID [facility] Last Admin: 09/02/18 18:05 Dose: 5 mg Nystatin (Nystop Topical Powder) 0 gm TOP BID [facility] Last Admin: 09/02/18 18:00 Dose: 1 applic Pantoprazole Sodium (Protonix Ec Tab) 40 mg PO ACB [facility] Last Admin: 09/03/18 08:30 Dose: 40 mg Quetiapine Fumarate (Seroquel) 25 mg PO HS [facility]; Protocol Last Admin: 08/29/18 21:50 Dose: 25 mg - Labs Labs: 08/30/18 03:26 08/30/18 03:26 PT 12.5 SECONDS (9.4-12.5) 08/22/18 11:31 INR 1.09 08/22/18 11:31 APTT 31.0 Seconds (25.1-36.5) 08/22/18 11:31 - Constitutional Appears: Well, Non-toxic, No Acute Distress - Head Exam Head Exam: ATRAUMATIC, NORMOCEPHALIC - Extremities Exam Additional comments: B/L LE focused exam: Vasc: DP/PT 2/4 b/l. Cap refill < 3 sec to all digits, TG Warm to cool from proximal to distal b/l, No edema noted b/l. Ortho: No pain upon palpation to left foot medial heel wound, cavus foot type bilaterally Neuro: Gross and protective sensation intact. Derm: L Biopsy site 100% granular base, no purulence, no malodor, no drainage, no bleeding, no erythema, no probe to bone. No clinical signs of active infection. Additional superficial ulceration appreciated to the lateral aspect of the R foot with fibrogranular base, no purulence, no drainage, no clinical signs of infection. - Neurological Exam Neurological Exam: Alert, Awake - Psychiatric Exam Psychiatric exam: Normal Affect, Normal Mood Assessment and Plan - Assessment and Plan (Free Text) Assessment: 58F with L leg ulcer Plan: Patient seen and evaluated at bedside with Dr. Schroeder Afebrile, absent leukocytosis Pathology report L heel mass; infarcted verruca Intra-op pathology report; no malignancy LE RADHA exam; relatively normal RADHA and PVR examination at rest, possible mild b/l tibial disease LE MRI taken; limited postoperative changes seen at the posterior and inferior heel soft tissues without evident of OM Left foot 3 views x-ray: subcutaneous calcified mass, CT w/o contrast recommended. LE venous duplex (07/23): No evidence of DVT Local wound care: B/L foot wounds dressed with optifoam Stable for discharge from podiatry point of view <Zac Schroeder - Last Filed: 09/06/18 09:46> Objective - Vital Signs/Intake and Output Vital Signs (last 24 hours): Temp Pulse Resp BP Pulse Ox 98 F 102 H 20 93/58 L 100 09/05/18 11:55 09/05/18 11:55 09/05/18 11:55 09/05/18 11:55 09/05/18 09:28 - Labs Labs: 08/30/18 03:26 08/30/18 03:26 PT 12.5 SECONDS (9.4-12.5) 08/22/18 11:31 INR 1.09 08/22/18 11:31 APTT 31.0 Seconds (25.1-36.5) 08/22/18 11:31 Attending/Attestation - Attestation I have personally seen and examined this patient.: Yes I have fully participated in the care of the patient.: Yes I have reviewed all pertinent clinical information, including history, physical exam and plan: Yes
[2018-09-03] MEDS: Nystatin 100,000 Units/gm Topical Pow(15 gm) TOP SCH ×3 (11:27→17:55)
--- NOTE | 2018-09-03 12:58 | PN ---
DATE: 09/03/2018 SUBJECTIVE: This 57-year-old female remains hospitalized at the [facility] on the morning of 09/03/2018. At present, Ativan and scheduled Haldol as well as scheduled Seroquel will remain on hold and the patient is more lucid and denying any fever, chills, chest pain or shortness of breath. PHYSICAL EXAMINATION: VITAL SIGNS: Temperature 98.3, respirations 18, pulse 68, blood pressure 90/53 with a pulse ox of 98%. Physical exam is unchanged. IMPRESSION: A 57-year-old female with deconditioning, now starting to ambulate with physical therapy and comorbidities of chronic hypotension, status post respiratory failure and septic shock with improved delirium. PLAN: Continue subcu heparin, ProAmatine and Protonix. Sacral wound care and disposition hopefully within the next 48 hours to family with 24-hour supervision at home. Kena Lazo MD
--- NOTE | 2018-09-03 14:59 | PN ---
DATE: 09/01/2018 SUBJECTIVE: This 57-year-old female was examined on the cardiac mahoney on the afternoon of , 09/01/2018. I did review this case with rn social services, Remy Romero and I did complete long term placement forms regarding the medical status of this patient. PHYSICAL EXAMINATION: GENERAL: She remains in a normal sinus rhythm on potline monitor. VITAL SIGNS: Temperature is 98.9, respirations 18, pulse 74, blood pressure 90/51. Pulse ox 100%. Remainder of physical exam is unchanged. IMPRESSION: Deconditioned 57-year-old female, now in need of disposition planning. She will continue on medications as outlined and the case was reviewed in detail with rn social servicesRemy and brother, Rubio. Kena Lazo MD MTDD
--- NOTE | 2018-09-03 15:02 | PN ---
DATE: 09/02/2018 SUBJECTIVE: This 57-year-old female was examined at her bedside on the cardiac unit at the [facility] on the afternoon of 09/02/2018, and the case was reviewed in detail with her nurse Summer Macdonald, registered nurse. The patient is awaiting disposition placement. Temperature is 98.8, respirations 18, pulse 83 and blood pressure 95/57. The patient is more lucid, she did walk with physical therapy today and denies any physical complaints. The patient will be continued on physical therapy. Medications will be adjusted. Her scheduled Haldol and Seroquel remain on hold; and based on clinical progress, hopefully, the patient can be discharged to the care of her family within the next 48 hours. This was reviewed with nursing and social work. All questions were answered. Kena Lazo MD
--- NOTE | 2018-09-03 21:33 | PN ---
DATE: 09/03/2018 SUBJECTIVE: The patient was seen earlier today in [facility]. The patient has no fevers, no chills. OBJECTIVE: VITAL SIGNS: Temperature is 98, blood pressure is 104/50, respiratory rate of 18, heart rate of 84. HEENT: Unremarkable. NECK: Supple. LUNGS: Have decreased breath sounds. HEART: Normal S1, S2. ABDOMEN: Soft, nontender. LABORATORY DATA: Reveals a white count of 8.8, hemoglobin of 8, platelets of 435. Chemistries reveal a BUN of 27, creatinine of 0.8. Procalcitonin less than 0.05. Review of orders reveals the patient to be off antibiotics. ASSESSMENT AND PLAN: This is a 58-year-old female, status post systemic inflammatory response syndrome, hypothermia. No evidence of infection or bacterial infection at this point. Delirium, status post septic shock with vent dependent respiratory failure, extubated, colitis, pancreatitis, pseudomembranous colitis, history of deep venous thrombosis and asthma, status post debridement of left foot ulcer. Currently off antibiotics, afebrile. The patient is at risk for developing nosocomial infections. Ashkan Bah MD
[2018-09-04] MEDS: Pantoprazole 40 mg EC Tab PO SCH (07:25)
[2018-09-04] MEDS: Nystatin 100,000 Units/gm Topical Pow(15 gm) TOP SCH ×2 (09:47→17:20)
--- NOTE | 2018-09-04 11:27 | PN ---
DATE: 09/04/2018 SUBJECTIVE: The patient is in bed, in no acute distress, nontoxic. PHYSICAL EXAMINATION: VITAL SIGNS: Temperature is 98, blood pressure 112/70 and respiratory rate 16. HEENT: Unremarkable. NECK: Supple. LUNGS: Decreased breath sounds. HEART: Normal, S1 and S2. ABDOMEN: Soft. LABORATORY EXAMINATION: Reveals the patient white count is down to 8.8. Review of orders reveals the patient to have no antibiotics. ASSESSMENT AND PLAN: A 57-year-old female with status post systemic inflammatory response syndrome, hypothermia. No evidence of acute bacterial infection at this point. Delirium, status post septic shock and vent-dependent respiratory failure, extubated with colitis, pancreatitis, pseudomembranous colitis, history of deep venous thrombosis, asthma and debridement of left foot. Currently, off of antibiotics, afebrile. The patient is at risk for developing nosocomial infections. Ashkan Bah MD
[2018-09-05 05:51] VITALS: O2SAT 100
--- NOTE | 2018-09-05 08:37 | PN ---
DATE: 08/31/2018 SUBJECTIVE: This 58-year-old female was examined in critical care unit, bed #1, on the morning of 08/31/2018. She remains clinically stable, is more oriented, and is awaiting a bed on the [facility] medical [facility], where she will need continued physical therapy and help in her reconditioning efforts. I have discussed this case in detail with her brother, Rubio and social psychologist, Remy Beltran. They are working together to determine placement, be at a long-term rehab or home with family. PHYSICAL EXAMINATION: VITAL SIGNS: The patient remains afebrile in normal sinus rhythm with a blood pressure of 106/60, pulse of 88, respirations 14, and pulse ox 97% on room air. The remainder of her physical exam is unchanged. IMPRESSION: A 58-year-old female status post admission for respiratory failure, septic shock and acute psychosis, now awaiting disposition planning. PLAN: She will continue on subcu heparin, Haldol p.r.n., ProAmatine, Protonix, and Santyl to her sacral wounds. Based on clinical progress, additional diagnostic workup will be entertained. Kena Lazo MD
[2018-09-05] MEDS: Pantoprazole 40 mg EC Tab PO SCH (09:25)
[2018-09-05] MEDS: Nystatin 100,000 Units/gm Topical Pow(15 gm) TOP SCH (09:26)
--- NOTE | 2018-09-05 11:47 | PN ---
DATE: 09/04/2018 SUBJECTIVE: This 58-year-old female remains hospitalized at the [facility] on the afternoon of 09/04/2018. She is now ambulatory and alert and oriented x3 and on virtually no psychotropic medication given her improved mental status. PHYSICAL EXAMINATION: VITAL SIGNS: Temperature was 97, respirations 19, pulse 90, blood pressure 95/45. Physical exam unchanged. IMPRESSION AND PLAN: A 58-year-old female status post acute delirium, now alert and oriented x3 with improved appetite and p.o. intake and ambulatory status. I will discuss discharge planning with the rebar worker, Remy Beltran in a.m. The patient should be ready to be discharged to her family and followed up in the [facility] as an outpatient. Kena Lazo MD MTDD
[2018-09-05 11:56] VITALS: BP 93/58; PULSE 102; RESP 20; TEMP 98
--- NOTE | 2018-09-05 12:18 | CP.PCM.PN ---
Subjective - Date & Time of Evaluation Date of Evaluation: 09/05/18 Time of Evaluation: 12:15 - Subjective Subjective: Podiatry Progress Note for Dr. Schroeder/Desiree 58F patient seen and evaluate for left heel ulcer. Patient resting comfortably and in NAD. Unable to elicit history at this time secondary to patient mental status. Per nursing notes, no acute events overnight. Objective - Vital Signs/Intake and Output Vital Signs (last 24 hours): Temp Pulse Resp BP Pulse Ox 98 F 102 H 20 93/58 L 100 09/05/18 11:55 09/05/18 11:55 09/05/18 11:55 09/05/18 11:55 09/05/18 09:28 Intake and Output: 09/05/18 09/05/18 06:59 18:59 Intake Total 100 Output Total 0 Balance 100 - Medications Medications: Current Medications Collagenase (Santyl) 0 gm TOP DAILY [facility] Last Admin: 08/31/18 09:22 Dose: 1 appl Haloperidol (Haldol) 5 mg PO DAILY [facility]; Protocol Last Admin: 08/29/18 09:01 Dose: 5 mg Haloperidol Lactate (Haldol) 2 mg IVP Q4 PRN; Protocol PRN Reason: Agitation Last Admin: 08/29/18 11:42 Dose: 2 mg Heparin Sodium (Porcine) (Heparin) 5,000 units SC Q8 [facility]; Protocol Last Admin: 09/05/18 05:39 Dose: 5,000 units Lorazepam (Ativan) 1 mg IVP Q6H PRN; Protocol PRN Reason: Anxiety Last Admin: 08/22/18 07:30 Dose: 1 mg Midodrine (Proamatine) 5 mg PO TID [facility] Last Admin: 09/05/18 09:25 Dose: 5 mg Nystatin (Nystop Topical Powder) 0 gm TOP BID [facility] Last Admin: 09/05/18 09:26 Dose: 1 applic Pantoprazole Sodium (Protonix Ec Tab) 40 mg PO ACB [facility] Last Admin: 09/05/18 09:25 Dose: 40 mg Quetiapine Fumarate (Seroquel) 25 mg PO HS [facility]; Protocol Last Admin: 08/29/18 21:50 Dose: 25 mg - Labs Labs: 08/30/18 03:26 08/30/18 03:26 PT 12.5 SECONDS (9.4-12.5) 08/22/18 11:31 INR 1.09 08/22/18 11:31 APTT 31.0 Seconds (25.1-36.5) 08/22/18 11:31 - Constitutional Appears: Well, Non-toxic - Head Exam Head Exam: ATRAUMATIC, NORMOCEPHALIC - Eye Exam Eye Exam: Normal appearance Pupil Exam: NORMAL ACCOMODATION - Extremities Exam Additional comments: B/L LE focused exam: Vasc: DP/PT 2/4 b/l. Cap refill < 3 sec to all digits, TG Warm to cool from proximal to distal b/l, No edema noted b/l. Ortho: No pain upon palpation to left foot medial heel wound, cavus foot type bilaterally Neuro: Gross and protective sensation intact. Derm: L Biopsy site 100% granular base, no purulence, no malodor, no drainage, no bleeding, no erythema, no probe to bone. No clinical signs of active infection. Additional superficial ulceration appreciated to the lateral aspect of the R foot with fibrogranular base, no purulence, no drainage, no clinical signs of infection Assessment and Plan - Assessment and Plan (Free Text) Assessment: 58F with L heel ulcer; stable Plan: Patient seen and evaluated at bedside with Dr. Schroeder Afebrile, absent leukocytosis Pathology report L heel mass; infarcted verruca Intra-op pathology report; no malignancy LE RADHA exam; relatively normal RADHA and PVR examination at rest, possible mild b/l tibial disease LE MRI taken; limited postoperative changes seen at the posterior and inferior heel soft tissues without evident of OM Left foot 3 views x-ray: subcutaneous calcified mass, CT w/o contrast recommended. LE venous duplex (07/23): No evidence of DVT Local wound care: B/L foot wounds dressed with optifoam Stable for discharge from podiatry point of view; patient will follow up with Dr. Ramírez/Elda upon discharge.
--- NOTE | 2018-09-05 14:59 | DS ---
FINAL DIAGNOSES: Status post septic shock; respiratory failure; acute delirium, improved; heel ulcers, improved; anemia of acute and chronic illness; deconditioning; chronic peripheral neuropathy; chronic smoking and alcohol and marijuana abuse and misuse. DISPOSITION: Home with family providing 24 hours supervision of this patient. Her discharge diet is heart healthy. DISCHARGE MEDICATIONS: Include dressings to right ankle and left heel as per Dr. Ramírez from Podiatry and outpatient followup with her as recommended. The patient was advised to follow up with the [facility] within the next 48 hours. The patient can continue her Neurontin 300 mg p.o. t.i.d. from home until evaluated in the medical clinic. SUMMARY: This 58-year-old female was admitted to [facility] with hypothermia, respiratory failure and septic shock and had a protracted hospital course. Due to the above, her course was also complicated by a sacral sore, heel ulcer, ankle ulcer and acute delirium. She was seen by numerous consultants including Dr. Bah from Infectious Disease, Dr. Love from Psychiatry, Dr. Alfred from Surgery, Dr. Ramírez from Podiatry, Dr. Lyle Hamilton from Neurology and at the time of discharge is now alert and oriented x3. Ambulatory with minimal assist and vital signs show temperature 98.2, respirations 19, pulse 85 and blood pressure 90/54 with a pulse of 100. Discharge labs show sodium 142, potassium 3.6, chloride 111, bicarb 26, BUN 27, creatinine 0.8, random blood sugar 93, phosphorous 3.0, magnesium 1.7. All liver function testing is normal including bilirubin 0.3, AST 24, ALT 35 and alk phos 66. White count 8800, hemoglobin 8.6, hematocrit 26.6, MCV 97.4 and platelets 435,000. HIV antigen antibody 4th generation was negative. Most recent blood and urine culture show no growth. Chest x-ray shows no active disease and heel and breast biopsies showed no malignancy during her hospital course. The patient is discharged to home to the care of her family who will require 24 hours supervision and they have been apprised of all of the above and the need for outpatient medical followup in the medical clinic as well. Kena Lazo MD [facility] # [id number]
--- NOTE | 2018-09-05 17:10 | CP.PCM.PN ---
Subjective - Date & Time of Evaluation Date of Evaluation: 09/05/18 Time of Evaluation: 10:30 - Subjective Subjective: Non-toxic, no fevers. Objective - Vital Signs/Intake and Output Vital Signs (last 24 hours): Temp Pulse Resp BP Pulse Ox 99.2 F 88 18 87/52 L 97 09/04/18 18:00 09/04/18 22:00 09/04/18 18:00 09/04/18 18:00 09/04/18 18:00 - Medications Medications: Current Medications Collagenase (Santyl) 0 gm TOP DAILY [facility] Last Admin: 08/31/18 09:22 Dose: 1 appl Haloperidol (Haldol) 5 mg PO DAILY MELY; Protocol Last Admin: 08/29/18 09:01 Dose: 5 mg Haloperidol Lactate (Haldol) 2 mg IVP Q4 PRN; Protocol PRN Reason: Agitation Last Admin: 08/29/18 11:42 Dose: 2 mg Heparin Sodium (Porcine) (Heparin) 5,000 units SC Q8 MELY; Protocol Last Admin: 09/04/18 21:24 Dose: 5,000 units Lorazepam (Ativan) 1 mg IVP Q6H PRN; Protocol PRN Reason: Anxiety Last Admin: 08/22/18 07:30 Dose: 1 mg Midodrine (Proamatine) 5 mg PO TID [facility] Last Admin: 09/04/18 17:20 Dose: 5 mg Nystatin (Nystop Topical Powder) 0 gm TOP BID MELY Last Admin: 09/04/18 17:20 Dose: 1 applic Pantoprazole Sodium (Protonix Ec Tab) 40 mg PO ACB MELY Last Admin: 09/04/18 07:25 Dose: 40 mg Quetiapine Fumarate (Seroquel) 25 mg PO HS [facility]; Protocol Last Admin: 08/29/18 21:50 Dose: 25 mg - Labs Labs: 08/30/18 03:26 08/30/18 03:26 PT 12.5 SECONDS (9.4-12.5) 08/22/18 11:31 INR 1.09 08/22/18 11:31 APTT 31.0 Seconds (25.1-36.5) 08/22/18 11:31 - Constitutional Appears: Chronically Ill - Head Exam Head Exam: NORMAL INSPECTION - Neck Exam Neck Exam: absent: Meningismus - Respiratory Exam Respiratory Exam: Decreased Breath Sounds - Cardiovascular Exam Cardiovascular Exam: +S1, +S2 - GI/Abdominal Exam GI & Abdominal Exam: Soft. absent: Tenderness Assessment and Plan - Assessment and Plan (Free Text) Plan: Assessment S/P SIRS with hypothermia, no evidence of sepsis or bacterial infection delirium S/P Septic shock S/P VDRF (now extubated) due to colitis and pancreatitis without blockage of biliary tract disease, now with pseudomembranous colitis S/P debridement of left foot ulcer related to peripheral arterial disease history of DVT asthma Plan continue to monitor off antibiotics since she is at risk for healthcare- associated infections overall prognosis is poor
== END 2018-09-05 16:58 | disposition home or self-care (01) | DRG 710 ==
LOC: ED 11:56 → ERH 14:36 → ICU 14:57 → 5RSO 08-03 18:47 → ICU 08-22 12:12 → 2RSO 08-23 13:21 → CCU 08-30 05:12 → 2RNO 08-31 14:49
PROVIDERS: ADMIT Internal Medicine; ATTEND Internal Medicine
PROC: 5A1945Z Respiratory Ventilation, 24-96 Consecutive Hours (ICD-10-PCS; principal; 2018-07-20)
PROC: 0BH17EZ Insertion of Endotracheal Airway into Trachea, Via Natural or Artificial Opening (ICD-10-PCS; 2018-07-20)
PROC: 05HM33Z Insertion of Infusion Device into Right Internal Jugular Vein, Percutaneous Approach (ICD-10-PCS; 2018-07-20)
PROC: 0HBNXZX Excision of Left Foot Skin, External Approach, Diagnostic (ICD-10-PCS; 2018-08-03)
PROC: 0HBT3ZX Excision of Right Breast, Percutaneous Approach, Diagnostic (ICD-10-PCS; 2018-08-06)
PROC: 0JDR0ZZ Extraction of Left Foot Subcutaneous Tissue and Fascia, Open Approach (ICD-10-PCS; 2018-08-11)
PROC: 0KB Muscles, Excision (ICD-10-PCS; 2018-08-11)
DX: A41.9 Sepsis, unspecified organism (principal); J96.01 Acute respiratory failure with hypoxia; R65.21 Severe sepsis with septic shock; K85.90 Acute pancreatitis without necrosis or infection, unspecified; N17.9 Acute kidney failure, unspecified; G93.41 Metabolic encephalopathy; A04.72 Enterocolitis due to Clostridium difficile, not specified as recurrent; E11.42 Type 2 diabetes mellitus with diabetic polyneuropathy; E11.621 Type 2 diabetes mellitus with foot ulcer; L97.429 Non-pressure chronic ulcer of left heel and midfoot with unspecified severity; E87.6 Hypokalemia; E87.5 Hyperkalemia; M62.82 Rhabdomyolysis; R62.7 Adult failure to thrive; F12.10 Cannabis abuse, uncomplicated; B07.0 Plantar wart; E11.51 Type 2 diabetes mellitus with diabetic peripheral angiopathy without gangrene; R64 Cachexia; Z68.1 Body mass index [BMI] 19.9 or less, adult; D63.8 Anemia in other chronic diseases classified elsewhere; F09 Unspecified mental disorder due to known physiological condition; F10.10 Alcohol abuse, uncomplicated; I10 Essential (primary) hypertension; N63.0 Unspecified lump in unspecified breast; F17.200 Nicotine dependence, unspecified, uncomplicated; W06.XXXA Fall from bed, initial encounter; Z86.718 Personal history of other venous thrombosis and embolism; Z86.711 Personal history of pulmonary embolism; Z79.01 Long term (current) use of anticoagulants; Z74.01 Bed confinement status

== ENCOUNTER 2018-09-09 14:34 | Emergency (ER) | payer MEDICAID ==
[2018-09-09 14:52] VITALS: BMI 17.6
[2018-09-09] MEDS ORDERED: Sodium Chloride 0.9% 1,000 ML IV STA ×2 (15:14→16:15)
--- NOTE | 2018-09-09 15:17 | ED PDOC ---
Arrival/HPI - General Chief Complaint: Medical Clearance Historian: Patient - History of Present Illness Narrative History of Present Illness (Text): 09/09/18 15:14 A 58 y/o F w/ pmhx of asthma and DVT presents to the emergency department complaining of lower blood pressure since earlier today. Patient reports she was in a clinic where her blood pressure was measured to be in the 70s prompting her to come to the ER. Patient reports she is experiencing dyspnea on exertion. Patient notes she has a low blood pressure as baseline and is unsure of her last bowel movement. Of note, patient was previously hospitalized until last Wednesday for her body temperature. Patient denies any fever, chills, shortness of breath, chest pain, abdominal pain, headache, dizziness, or any other complaints. No PMD Time/Duration: 4-6 hours (earlier today) Symptom Onset: Gradual Symptom Course: Unchanged Activities at Onset: Light Context: Other (clinic) Past Medical History - Provider Review Nursing Documentation Reviewed: Yes - Infectious Disease Hx of Infectious Diseases: None - Cardiac Hx Cardiac Disorders: Yes Hx Peripheral Vascular Disease: Yes (DVT ON COUMADIN) - Pulmonary Hx Respiratory Disorders: Yes (SMOKES CIGARETTES HALF A PPD.) Hx Asthma: Yes Other/Comment: PULMONARY EMBOLISM - Neurological Hx Neurological Disorder: No - HEENT Hx HEENT Disorder: No - Renal Hx Renal Disorder: No - Endocrine/Metabolic Hx Endocrine Disorders: No - Hematological/Oncological Hx Blood Disorders: Yes Other/Comment: DVT - Integumentary Hx Dermatological Disorder: Yes Other/Comment: 07-20-18 MULTIPLE REDDENED SKIN ALL OVER BODY,LEGS ARMS. DTI FROM LAYING ON FLOOR FOR ALMOST 4 D OR MORE. WAS FD ON FLOOR BY SIBLING. BILATERAL SHOULDER BLADE,BILATERAL ELBOW,SPINE,LOWER BACK.BILATERAL HIP, BILATERAL KNEE, BILATERAL MALLEOLAR BONE, SACRAL AREA WITH 2 SMALL NECROTIC TISSUE.,BILATERAL BUTTOCKS AREA. HAS DTI. SKIN IS RED SWOLLEN.COOL SKIN. - Musculoskeletal/Rheumatological Hx Musculoskeletal Disorders: Yes Hx Falls: Yes Hx Unsteady Gait: Yes - Gastrointestinal Hx Gastrointestinal Disorders: Yes (CLOLITIS?,CHOLECYSTITIS? PANCREATITIS?) Hx Gastroesophageal Reflux: Yes - Genitourinary/Gynecological Hx Genitourinary Disorders: No - Psychiatric Hx Psychophysiologic Disorder: Yes Hx Substance Use: No (UNKNOWN) Other/Comment: recently lost , decrease appetite, half pack smoker - Anesthesia Hx Anesthesia: No Family/Social History - Physician Review Nursing Documentation Reviewed: Yes Family/Social History: No Known Family HX Smoking Status: Current Some Days Smoker Hx Alcohol Use: No (UNKNOWN) Hx Substance Use: No (UNKNOWN) Allergies/Home Meds Allergies/Adverse Reactions: Allergies No Known Allergies Allergy (Verified 09/09/18 14:52) Home Medications: Home Meds Medication Instructions Recorded Confirmed No Known Home Med 09/09/18 09/09/18 Review of Systems - Physician Review All systems were reviewed & negative as marked: Yes - Review of Systems Constitutional: absent: Fevers, Other (chills) Respiratory: absent: SOB Cardiovascular: FERNÁNDEZ. absent: Chest Pain Gastrointestinal: Other (unknown last bowel movement). absent: Abdominal Pain Neurological: absent: Headache, Dizziness Physical Exam Vital Signs Reviewed: Yes Vital Signs Temp Pulse Resp BP Pulse Ox 09/09/18 14:53 98.2 F 99 H 19 84/55 L 100 Temperature: Afebrile Blood Pressure: Hypotensive Pulse: Tachycardic Respiratory Rate: Normal Appearance: Positive for: Cachectic Pain Distress: None Mental Status: Positive for: Alert and Oriented X 3 - Systems Exam Head: Present: Atraumatic, Normocephalic Pupils: Present: PERRL Extroacular Muscles: Present: EOMI Conjunctiva: Present: Normal Mouth: Present: Dry Respiratory/Chest: Present: Clear to Auscultation, Good Air Exchange. No: Respiratory Distress, Accessory Muscle Use Cardiovascular: Present: Regular Rate and Rhythm, Normal S1, S2. No: Murmurs Abdomen: No: Tenderness, Distention, Peritoneal Signs Back: Present: Normal Inspection Upper Extremity: Present: Normal Inspection. No: Cyanosis, Edema Lower Extremity: Present: Normal Inspection. No: Edema Neurological: Present: GCS=15, CN II-XII Intact, Speech Normal Skin: Present: Warm, Dry, Normal Color. No: Rashes Psychiatric: Present: Alert, Oriented x 3, Normal Insight, Normal Concentration Medical Decision Making ED Course and Treatment: 09/09/18 15:14 Impression: 58 y/o F presents to the emergency department complaining of lower blood pressure. Differential Diagnosis included but are not limited to: - orthostatic hypertension - symptomatic anemia Plan: -- CMP -- CBC -- IV fluids -- Urinalysis --Social work consult -- Reassess and disposition Prior Visits: Notes and results from previous visits were reviewed. Progress Notes: 09/09/18 16:59 Nurse states patient does not have VNS services available to her at home and has had her [id number] attempting to care for her wounds in the interim. ventilation worker Dario called and states patient does not have insurance that is active until September 2018 and once approved, can apply for home health care services that are needed. Patient and son updated on information and will follow up. Patient informs treatment team that her blood pressure is normally in the 90s and denies any symptoms at this time. - Lab Interpretations Lab Results: 09/09/18 15:30 09/09/18 15:30 Lab Results 09/09/18 16:10: Urine Color Yellow, Urine Appearance Clear, Urine pH 6.0, Ur Specific [place] >= 1.030, Urine Protein Negative, Urine Glucose (UA) Negative, Urine Ketones Trace H, Urine Blood Trace-intact H, Urine Nitrate Negative, Urine Bilirubin Negative, Urine Urobilinogen 0.2, Ur Leukocyte Esterase Negative, Urine RBC Pending, Urine WBC Pending 09/09/18 15:30: Sodium 139, Potassium 3.7, Chloride 102, Carbon Dioxide 31, Anion Gap 10, BUN 34 H, Creatinine 0.7, Est GFR ( Amer) > 60, Est GFR (Non-Af Amer) > 60, Random Glucose 90, Calcium 9.5, Total Bilirubin 0.3, AST 18, ALT 16, Alkaline Phosphatase 77, Total Protein 7.2, Albumin 3.8, Globulin 3.4, Albumin/Globulin Ratio 1.1 09/09/18 15:30: WBC 6.9 D, RBC 2.86 L, Hgb 9.0 L, Hct 28.4 L, MCV 99.3, MCH 31.5, MCHC 31.7, RDW 14.4, Plt Count 509 H, MPV 9.4, Gran % 55.1, Lymph % (Auto) 27.6, [place] % (Auto) 11.1 H, Eos % (Auto) 5.9 H, Baso % (Auto) 0.3, Gran # 3.82, Lymph # (Auto) 1.9, [place] # (Auto) 0.8 H, Eos # (Auto) 0.4, Baso # (Auto) 0.02 I have reviewed the lab results: Yes - Scribe Statement The provider has reviewed the documentation as recorded by the Scribe Christy Rosas All medical record entries made by the Scribe were at my direction and personally dictated by me. I have reviewed the chart and agree that the record accurately reflects my personal performance of the history, physical exam, medical decision making, and the department course for this patient. I have also personally directed, reviewed, and agree with the discharge instructions and disposition. Disposition/Present on Arrival - Present on Arrival Any Indicators Present on Arrival: No History of DVT/PE: No History of Uncontrolled Diabetes: No Urinary Catheter: No History of Decub. Ulcer: No History Surgical Site Infection Following: None - Disposition Have Diagnosis and Disposition been Completed?: Yes Diagnosis: Low blood pressure, Anemia Disposition Time: 17:22 Patient Plan: Discharge Condition: IMPROVED Discharge Instructions (ExitCare): Low Blood Pressure (DC), Anemia Caused by Low Iron, Adult (DC) Print Language: ISRA[place]I Additional Instructions: All medical record entries made by the Scribe were at my direction and personally dictated by me. I have reviewed the chart and agree that the record accurately reflects my personal performance of the history, physical exam, medical decision making, and the department course for this patient. I have also personally directed, reviewed, and agree with the discharge instructions and dis position. Please follow up with Dr. Lazo in 3-5 days Please monitor for any symptoms of dizziness, fainting, nausea or palpitations and return to the ER if symptoms persist Referrals: Kena Lazo MD [Primary Care Provider] - Follow up with primary Zac Schroeder DPM [Staff Provider] - Follow up with primary Forms: Done In :60 Seconds (Maltese)
[2018-09-09 15:43] LABS: BASO # 0.02 K/mm3 (0.0-2.0); BASO % 0.3 % (0.0-3.0); EOS # 0.4 (0.0-0.7); EOS % 5.9 % (1.5-5.0); GRAN # 3.82 (1.4-6.5); GRAN % 55.1 % (50.0-68.0); LYMPH # 1.9 (1.2-3.4); LYMPH % 27.6 % (22.0-35.0); MEAN CELL VOLUME 99.3 fl (80.0-105.0); MEAN CORPUSCULAR HEMOGLOBIN 31.5 pg (25.0-35.0); MEAN CORPUSCULAR HGB CONC 31.7 g/dl (31.0-37.0); MEAN PLATELET VOLUME 9.4 fl (7.0-11.0); MONO # 0.8 (0.1-0.6); MONO % 11.1 % (1.0-6.0); RBC 2.86 10^6/uL (3.5-6.1); RED CELL DISTRIBUTION WIDTH 14.4 % (11.5-14.5); WHITE BLOOD COUNT 6.9 10^3/uL (4.5-11.0)
[2018-09-09 16:04] LABS: ALB/GLOB RATIO 1.1 (1.1-1.8); ALBUMIN 3.8 g/dL (3.0-4.8); ALT/SGPT 16 U/L (7-56); AST/SGOT 18 U/L (14-36); BLOOD UREA NITROGEN 34 mg/dL (7-21); CALCIUM 9.5 mg/dL (8.4-10.5); GFR NON-AFRICAN AMERICAN > 60
[2018-09-09 16:13] LABS: URINE APPEARANCE CLEAR (CLEAR); URINE BILIRUBIN NEGATIVE (NEGATIVE); URINE BLOOD TRACE-INTACT (NEGATIVE); URINE COLOR YELLOW (YELLOW); URINE GLUCOSE (UA) NEGATIVE (NEGATIVE); URINE LEUKOCYTE ESTERASE NEGATIVE Leu/uL (NEGATIVE); URINE PROTEIN NEGATIVE mg/dL (<30 mg/dL); URINE UROBILINOGEN 0.2 E.U./dL (<1 E.U./dL)
[2018-09-09 16:15] VITALS: PULSE 78; RESP 16
[2018-09-09 16:17] LABS: URINE RBC 0 - 2 /hpf (0-2)
[2018-09-09 18:14] VITALS: BP 94/56; TEMP 98; O2SAT 100
== END 2018-09-09 18:00 | disposition home or self-care (01) ==
LOC: ED 14:34
DX: I95.9 Hypotension, unspecified (principal); D64.9 Anemia, unspecified; Z86.711 Personal history of pulmonary embolism; Z86.718 Personal history of other venous thrombosis and embolism; Z79.01 Long term (current) use of anticoagulants
CPT/HCPCS: 80053; 81001; 85025; 96360; 96361; 99284; J7030